=== PATIENT | female | born 1975 | race Caucasian/White ===

== ENCOUNTER 2025-01-21 09:17 | Outpatient (CLI) | payer OTHER, SELFPAY ==
--- OUTSIDE RECORDS SUMMARY | 2025-01-21 09:29 | XMS_ITS | Clinical Summary ---
Author Organization [facility] [address] [facility] Address [address] [place] [address] Care Team Providers Care Brick Siding Applicator Name Role Phone Nestor Fletcher MD Primary Care Provider [phone] Moshe Hess MD Unavailable [phone] Allergies Active Allergy Reactions Criticality Noted Date Comments Amoxicillin Unknown 09/23/2020 Yeast infection Oxycodone-Acetaminophen Itching Low 09/23/2020 Ketorolac Itching Low 09/23/2020 Medications levothyroxine sodium (LEVOTHYROXINE, BULK, MISC) 175 mcg Active montelukast (SINGULAIR) 10 mg tablet Take 10 mg by mouth nightly Active traZODone (DESYREL) 50 mg tablet Take 1 tablet (50 mg total) by mouth nightly Active pantoprazole sodium (PANTOPRAZOLE ORAL) Take by mouth Active losartan-hydroC HLOROthiazide (HYZAAR) 50-12.5 mg per tablet Take 1 tablet by mouth daily Active amLODIPine (KATERZIA) 1 mg/mL oral suspension 7.5 mL (7.5 mg total) daily Active TiZANidine (ZANAFLEX) 4 mg capsule Take 1 capsule (4 mg total) by mouth 3 (three) times a day Active LORazepam (ATIVAN) 1 mg tablet Take 1 tablet (1 mg total) by mouth every 6 (six) hours as needed for anxiety Active HYDROcodone-cash taminophen (NORCO) 10-325 mg per tabletIndicatio ns:Pain Take 1 tablet by mouth every 6 (six) hours as needed for pain Active meloxicam (MOBIC) 15 mg tablet Take 1 tablet (15 mg total) by mouth daily 30 tablet 1 1 Active albuterol 2.5 mg /3 mL (0.083 %) nebulizer solution Inhale 3 mL (2.5 mg total) every 4 (four) hours as needed 2 Active FLUoxetine (PROzac) 40 mg capsule Take 1 capsule (40 mg total) by mouth daily 4 Active gabapentin (NEURONTIN) 100 mg capsule Take 1 capsule (100 mg total) by mouth 3 (three) times a day 5 Active Breo Ellipta 200-25 mcg/dose diskus inhaler Inhale 1 puff daily 5 Active hydrALAZINE (APRESOLINE) 25 mg tablet Take 1 tablet (25 mg total) by mouth 3 (three) times a day as needed 3 Active naloxone (Narcan) 4 mg/actuation spray,non-aeros ol Administer 0.1 mL into affected nostril(s) as needed 2 Active sucralfate (CARAFATE) 1 gram tablet Take 1 tablet (1 g total) by mouth 4 (four) times a day as needed 4 Active levothyroxine (SYNTHROID) 200 mcg tablet Take 1 tablet (200 mcg total) by mouth every morning 4 Active tiZANidine (ZANAFLEX) 4 mg tablet Take 1 tablet (4 mg total) by mouth every 8 (eight) hours as needed 5 Active Active Problems Problem Noted Date Diagnosed Date Bloating 03/24/2021 Assessment & Plan (03/24/2021 12:53 PM CDT): Recommended further discussion with her GI. Positive RACHAEL (antinuclear antibody) 03/11/2021 Overview (03/24/2021): 03/11/21: UA neg, CK 81, CRP 1.49 mg/dL, ESR 14, Anti-Juan Miguel neg, Actin neg AVISE 03/11/21: all negative 45 yoF presents with a recent pos rachael 1:80 in an reticular/AMA pattern. She notes generalized joint complaints along with significant fatigue symptoms. She notes several other complaints, which I suspect are likely unrelated to a rheumatologic cause, including worsening asthma, GERD, insomnia, nausea, infrequent diffuse abdominal pain. Has occasional sharp chest pains, which could possibly represent pleurisy, without other systemic complaints. She does note a previous diagnosis of ankylosing spondylitis per neurosurgery, although appears more likely to be degenerative disc disease given prior fusion surgeries in the lumbar and cervical spine. Will try and track down prior MRI of the lumbar and/or cervical spine. Tenderness noted across several joints without obvious synovitis. At this time, do not see any obvious evidence to suggest an underlying connective tissue disease and/or inflammatory arthritis. Will evaluate further with appropriate serologies. Will rx mobic 15 mg daily to see if this can offer benefit for joint complaints. Discussed side effects of the medication, including but not limited to GI upset, kidney, and ulcers. She is to notify with any worsened gerd symptoms. Assessment & Plan (03/24/2021 12:53 PM CDT): 45 yoF presented with a pos rachael 1:80 in an reticular/AMA pattern. She noted generalized joint complaints along with significant fatigue symptoms. She also noted several other complaints, which I suspect are likely unrelated to a rheumatologic cause, including worsening asthma, GERD, insomnia, nausea, infrequent diffuse abdominal pain. She noted a previous diagnosis of ankylosing spondylitis per neurosurgery, although appears more likely to be degenerative disc disease given prior fusion surgeries in the lumbar and cervical spine. We have tried to obtain records of the MRI of the lumbar and/or cervical spine, although have yet to receive. She has begun mobic PRN since last visit, which has helped her joint symptoms. Denies significant joint complaints at today's visit. No obvious synovitis. Repeat labs, as above, revealed a negative Avise along with mildly elevated CRP at 1.49 mg/dL and ESR at 14. No other significant serologies were noted. At this time, do not see any obvious evidence to suggest an underlying inflammatory arthritis and/or CTD. He may continue meloxicam at 15 mg daily p.r.n., which has been beneficial and she has not required this frequently. Will have her follow up as needed or if any new symptoms arise. Seen with Dr. Hess. Assessment & Plan (03/11/2021 11:47 PM CDT): 45 yoF presents with a recent pos rachael 1:80 in an reticular/AMA pattern. She notes generalized joint complaints along with significant fatigue symptoms. She notes several other complaints, which I suspect are likely unrelated to a rheumatologic cause, including worsening asthma, GERD, insomnia, nausea, infrequent diffuse abdominal pain. Has occasional sharp chest pains, which could possibly represent pleurisy, without other systemic complaints. She does note a previous diagnosis of ankylosing spondylitis per neurosurgery, although appears more likely to be degenerative disc disease given prior fusion surgeries in the lumbar and cervical spine. Will try and track down prior MRI of the lumbar and/or cervical spine. Tenderness noted across several joints without obvious synovitis. At this time, do not see any obvious evidence to suggest an underlying connective tissue disease and/or inflammatory arthritis. Will evaluate further with appropriate serologies. Will rx mobic 15 mg daily to see if this can offer benefit for joint complaints. Discussed side effects of the medication, including but not limited to GI upset, kidney, and ulcers. She is to notify with any worsened gerd symptoms. Fu 2 weeks. Sooner if needed. Seen with Dr. Hess. Surgical History Surgery Date Site/Laterality Comments THYROIDECTOMY SPINE SURGERY 2 cervical spine, 1 lumbar spine TUBAL LIGATION ESOPHAGOGASTRODUODENOSCOPY COLONOSCOPY BREAST LUMPECTOMY Medical History Medical History Date Comments Degenerative disc disease at L5-S1 level Hypertension Hypothyroidism Cancer (HCC) Thyroid Cancer 2 009 Asthma Dysphagia Hiatal hernia Social History Tobacco Use Types Packs/Day Years Used Date Smoking Tobacco: Former Cigarettes Smokeless Tobacco: Never Tobacco Cessation:Counseling Given: Not Answered AUDIT-C Answer Date Recorded Q1: How often do you have a drink containing alcohol? Never 09/30/2024 Q2: How many drinks containi ng alcohol do you have on a typical day when you are drinking? Patient does not drink Q3: How often do you have si x or more drinks on one occasion? Never 09/30/2024 Personal Safety Answer Date Recorded Have you ever been in or are you currently in a harmful physical or emotional relationship or is someone making you feel afraid or unsafe? Denies 09/30/2024 Comments No Sex and Gender Information Value Date Recorded Sex Assigned at Not on file Legal Sex Female 2:16 AM WOOD EXPERIMENTAL MECHANIC Gender Identity Not on file Sexual Orientation Not on file Obstetrics History Last Filed Vital Signs Vital Sign Reading Time Taken Comments Blood Pressure 161/77 09/30/2024 1:43 PM WOOD EXPERIMENTAL MECHANIC Pulse 78 09/30/2024 1:43 PM WOOD EXPERIMENTAL MECHANIC Temperature 37.4 C (99.3 F) 09/30/2024 12:43 PM WOOD EXPERIMENTAL MECHANIC Respiratory Rate 11 09/30/2024 1:43 PM WOOD EXPERIMENTAL MECHANIC Oxygen Saturation 96% 09/30/2024 1:43 PM WOOD EXPERIMENTAL MECHANIC Inhaled Oxygen Concentration - - Weight 112 kg (247 lb) 09/30/2024 10:26 AM WOOD EXPERIMENTAL MECHANIC Height 165.1 cm (5' 5 ) 09/30/2024 10:26 AM WOOD EXPERIMENTAL MECHANIC Body Mass Index 41.1 09/30/2024 10:26 AM WOOD EXPERIMENTAL MECHANIC Plan of Treatment Health Maintenance Due Date Last Done Comments Breast Cancer Screening-Mammogram 1976 Cervical Cancer Screening 1976 Colon Cancer Screening-Colonoscopy 1976 Depression Screening 1976 Hepatitis C Screening 1976 Hepatitis B Screening 1994 Regular Well Visit/Exam 18-64 1994 Pneumococcal vaccine <65 (1 of 2 - PCV) 12/22/1995 Covid-19 Vaccine (3 - 2023-2 5 season) 2024 12/24/2020, 11/26/2020 Influenza Vaccine (Season Ended) 2025 07/14/2023, 07/14/2022, 07/05/2021, Additional history exists DTaP/Tdap/Td Vaccine (2 - Td or Tdap) 02/21/2027 02/21/2017 Insurance MEDICARE Member Subscriber Plan / Payer ( fective 2024-Present) Name:Renu Marquez Relation to Subscriber:Self Name:Renu Marquez Payer ID:[id number] (NAIC) Group ID:Not on file Type:MEDICAID RISK OTHER Address: [address] [place] Member Subscriber Plan / Payer ( fective 2024-Present) Name:Renu Marquez Relation to Subscriber:Self Name:Renu Marquez Payer ID:[id number] (NAIC) Group ID:Not on file Type:MEDICAID RISK OTHER Address: [address] Advance Directives For more information, please contact: [phone] * Full Code (Latest Code Status on File) Date Activated Date Inactivated Comments 09/30/2024 10:26 AM 09/30/2024 5:58 PM Care Teams Brick Siding Applicator Relationship Specialty Start Date End Date Nestor Fletcher MD PCP - General Family Practice 02/09/21 Moshe Hess MD [address] [place] [address] Consulting Physician Rheumatology 02/09/21
--- OUTSIDE RECORDS SUMMARY | 2025-01-21 09:29 | XMS_ITS | Referral Summary ---
Author Organization [facility] [address] [facility] Address [address] [place] [address] Care Team Providers Care Manager Of Customer Billing Name Role Phone Nestor Fletcher MD Primary Care Provider [phone] Moshe Hess MD Unavailable [phone] Allergies Active Allergy Reactions Criticality Noted [...] Sooner if needed. Seen with Dr. Hess. Social History Tobacco Use Types Packs/Day Years [...] on file Legal Sex Female 2:16 AM CERTIFIED MEDICAL TECHNICIAN ASSISTANT Gender Identity Not on file Sexual Orientation Not on file Last Filed Vital Signs Vital Sign Reading Time Taken Comments Blood Pressure 161/77 09/30/2024 1:43 PM CERTIFIED MEDICAL TECHNICIAN ASSISTANT Pulse 78 09/30/2024 1:43 PM CERTIFIED MEDICAL TECHNICIAN ASSISTANT Temperature 37.4 C (99.3 F) 09/30/2024 12:43 PM CERTIFIED MEDICAL TECHNICIAN ASSISTANT Respiratory Rate 11 09/30/2024 1:43 PM CERTIFIED MEDICAL TECHNICIAN ASSISTANT Oxygen Saturation 96% 09/30/2024 1:43 PM CERTIFIED MEDICAL TECHNICIAN ASSISTANT Inhaled Oxygen Concentration - - Weight 112 kg (247 lb) 09/30/2024 10:26 AM CERTIFIED MEDICAL TECHNICIAN ASSISTANT Height 165.1 cm (5' 5 ) 09/30/2024 10:26 AM CERTIFIED MEDICAL TECHNICIAN ASSISTANT Body Mass Index 41.1 09/30/2024 10:26 AM CERTIFIED MEDICAL TECHNICIAN ASSISTANT Plan of Treatment Not on file Insurance [place] [address] [place] [address] [facility] Advance Directives For more information, please contact: [phone] * Full Code (Latest Code Status on File) Date Activated Date Inactivated Comments 09/30/2024 10:26 AM 09/30/2024 5:58 PM Care Teams Manager Of Customer Billing Relationship Specialty Start Date End Date Nestor Fletcher MD PCP - General Family Practice 02/09/21 Moshe Hess MD [address] [place] [id number] Consulting Physician Rheumatology 02/09/21
--- NOTE | 2025-01-21 11:15 | NEURO_ITS ---
Impression: # Complains of hand pain. ? # Left ulnar neuropathy across the elbow. ? # No Carpal Tunnel Syndrome. ? # Mildly abnormal Needle/EMG exam. Nerve Conduction Studies Anti Sensory Summary Table ?Stim Site NR Peak (ms) P-T Amp (?V) Site1 Site2 Delta-P (ms) Dist (cm) Christopher (m/s) Left Median Anti Sensory (2-3nd Digit) Wrist ? 2.6 55.2 Wrist 2-3nd Digit 2.6 14.0 54 Wrist ? 2.6 39.6 Wrist 2-3nd Digit 2.6 14.0 54 Right Median Anti Sensory (2-3nd Digit) Wrist ? 3.2 53.6 Wrist 2-3nd Digit 3.2 14.0 44 Wrist ? 3.1 48.6 Wrist 2-3nd Digit 3.2 14.0 44 Left Radial Anti Sensory (Base 1st Digit) Wrist ? 1.9 24.6 Wrist Base 1st Digit 1.9 0.0 Right Radial Anti Sensory (Base 1st Digit) Wrist ? 2.6 12.6 Wrist Base 1st Digit 2.6 0.0 Left Ulnar Anti Sensory (5th Digit)??? NO RESPONSE Wrist NR Wrist 5th Digit 14.0 Right Ulnar Anti Sensory (5th Digit) Wrist ? 2.7 29.5 Wrist 5th Digit 2.7 14.0 52 Motor Summary Table ?Stim Site NR Onset (ms) O-P Amp (mV) Site1 Site2 Delta-0 (ms) Dist (cm) Christopher (m/s) Left Median Motor (Abd Poll Brev) Wrist ? 3.0 3.9 Elbow Wrist 4.7 28.0 60 Elbow ? 7.7 5.5 Right Median Motor (Abd Poll Brev) Wrist ? 3.0 4.6 Elbow Wrist 5.0 30.0 60 Elbow ? 8.0 4.1 Left Ulnar Motor (Abd Dig Minimi) Wrist ? 2.4 6.0 A Elbow Wrist 6.3 30.0 48 A Elbow ? 8.7 1.0 B Elbow Wrist 3.8 24.0 63 B Elbow ? 6.2 1.0 Right Ulnar Motor (Abd Dig Minimi) Wrist ? 3.2 2.5 A Elbow Wrist 5.1 30.0 59 A Elbow ? 8.3 2.0 F Wave Studies ?NR F-Lat (ms) L-R F-Lat (ms) Left Median (Mrkrs) (Abd Poll Brev) ? 27.11 0.38 Right Median (Mrkrs) (Abd Poll Brev) ? 26.73 0.38 Left Ulnar (Mrkrs) (Abd Dig Min) ? 26.22 0.43 Right Ulnar (Mrkrs) (Abd Dig Min) ? 25.79 0.43 EMG ?Side Muscle Nerve Root Ins Act Fibs Amp Dur Recrt Comment Right 1stDorInt Ulnar C8-T1 Nml Nml Nml Nml Nml Right Ext Indicis Radial (Post Int) C7-8 Nml Nml Nml Nml Nml Right Ext Digitorum Radial (Post Int) C7-8 Nml Nml Nml Nml Nml Right BrachioRad Radial C5-6 Nml Nml Nml Nml Nml Right PronatorTeres Median C6-7 Nml Nml Nml Nml Nml Right Abd Poll Brev Median C8-T1 Nml Nml Nml Nml Nml Right ABD Dig Min Ulnar C8-T1 Nml Nml Nml Nml Nml Right FlexPolLong Median (Ant Int) C7-8 Nml Nml Nml Nml Nml Right Abd Poll Long Radial (Post Int) C7-8 Nml Nml Nml Nml Nml Left 1stDorInt Ulnar C8-T1 Nml Nml Nml >12ms +1 Left Ext Indicis Radial (Post Int) C7-8 Nml Nml Nml Nml Nml Left Ext Digitorum Radial (Post Int) C7-8 Nml Nml Nml Nml Nml Left BrachioRad Radial C5-6 Nml Nml Nml Nml Nml Left PronatorTeres Median C6-7 Nml Nml Nml Nml Nml Left Abd Poll Brev Median C8-T1 Nml Nml Nml Nml Nml Left ABD Dig Min Ulnar C8-T1 Nml Nml Nml >12ms +1 Left FlexPolLong Median (Ant Int) C7-8 Nml Nml Nml Nml Nml Left Abd Poll Long Radial (Post Int) C7-8 Nml Nml Nml Nml Nml Right Biceps Musculocut C5-6 Nml Nml Nml Nml Nml Right Triceps Radial C6-7-8 Nml Nml Nml Nml Nml Right Deltoid Axillary C5-6 Nml Nml Nml Nml Nml Left Biceps Musculocut C5-6 Nml Nml Nml Nml Nml Left Triceps Radial C6-7-8 Nml Nml Nml Nml Nml Left Deltoid Axillary C5-6 Nml Nml Nml Nml Nml MTDD
== END 2025-01-21 09:18 | disposition home or self-care (01) ==
PROVIDERS: PCP Family Medicine; Visit Provider Nurse Practitioner Adult Health
DX: G56.22 Lesion of ulnar nerve, left upper limb (principal); M54.2 Cervicalgia; Z98.890 Other specified postprocedural states
CPT/HCPCS: 95886; 95911

== ENCOUNTER 2025-03-30 09:59 | Outpatient (CLI) | payer OTHER, SELFPAY ==
--- NOTE | ~2025-03-30 | MR_ITS ---
MRI of the cervical spine Clinical History: Pain Technique: Axial T2-weighted and gradient images, and sagittal T1-weighted, T2-weighted, and STIR ivory ges were acquired. Findings: No acute fracture or subluxation identified. There is anterior fusion from C3 through C7 wi th associated hardware and susceptibility artifact. No significant bone marrow signal abnormality see n, but there is extensive artifact. At C2-C3, there is mild right facet arthropathy. No definite neural foraminal narrowing on either alexander e. No canal stenosis or cord compression. At C3-C4, there is no spinal canal stenosis or cord compression. Neural foramina appear preserved. Po ssible minimal disc osteophyte complex. At C4-C5, there is disc osteophyte complex with bilateral neural foraminal narrowing. No canal stenos is or cord compression. At C5-C6, there is probable minimal disc osteophyte complex. No definite canal stenosis, cord john swapna, or neural foraminal narrowing. At C6-C7, there is probable mild disc osteophyte complex. Possible mild bilateral neural foraminal na rrowing. No canal stenosis or cord compression. No abnormal signal seen in the spinal cord. Paravertebral soft tissues are unremarkable. Impression: Mild degenerative spondylosis with anterior fusion from C3 through C7. Reviewed, dictated and finalized at location . Impression: Mild degenerative spondylosis with anterior fusion from C3 through C7.
--- OUTSIDE RECORDS SUMMARY | 2025-03-30 10:03 | XMS_ITS | Encounter Summary ---
Author Organization [facility] Address [address] [place] [address] Care Team Providers Care Washroom Cleaner Name Role Phone Nestor Fletcher MD Primary Care Provider [phone] Encounter Details Date Type Department Care Team (Late st Contact Info) Description 12/28/2021 [employer] Message Enc [facility] Family & Internal Medicine [address] [address] Nestor Fletcher MD [address] [place] [address] Pain meds Social History Tobacco Use Types Packs/Day Years Used Date Smoking Tobacco: Former Cigarettes 1 991 - 05/15/2021 Smokeless Tobacco: Never Comments:pt has quit smoking Alcohol Use Standard Drinks/Week Comments Not Currently 0 (1 standard drink = 0.6 oz pur e alcohol) 2-3 times a year AUDIT-C Answer Date Recorded Frequency of Alcohol Consumption Monthly or less 10/30/2019 Average Number of Drinks 1 or 2 020 Frequency of Binge Drinking Never 10/06 PHQ-2 Answer Date Recorded PHQ-2 Score - If the patient scores above 3, please move on to questions 3-9 0 12/17/2021 Comments No Sex and Gender Information Value Date Recorded Sex Assigned at Female 10/30/2019 8:35 AM TIRE REGROOVING MACHINE OPERATOR Legal Sex Female 10:55 PM CDT Gender Identity Female 10/30/2019 8:35 AM TIRE REGROOVING MACHINE OPERATOR Sexual Orientation Straight 10/30/2019 8: 35 AM TIRE REGROOVING MACHINE OPERATOR COVID-19 Exposure Response Date Recorded In the last 10 days, have yo u been in contact with someone who was confirmed or suspected to have Coronavirus/COVID-19? No / Unsure 12/26/2021 9:05 PM CDT documented as of this encounter Functional Status * RETIRED Are you deaf or do you have serious difficulty hearing Answer Date of Assessment Author Status No 03/31/2020 2:12 AM CDT Activ e * RETIRED Are you blind or do you have serious difficulty seeing, even when wearing glasses? Answer Date of Assessment Author Status No 03/31/2020 2:12 AM CDT Activ e * Do you have serious difficulty walking or climbing stairs? Answer Date of Assessment Author Status No 03/31/2020 2:12 AM CDT Kelly Hayes RN Active * Do you have difficulty dressing or bathing? Answer Date of Assessment Author Status No 03/31/2020 2:12 AM CDT Kelly Hayes RN Active * Because of a physical, mental, or emotional condition, do you have difficulty doing errands alone such as visiting a doctor's office or shopping? Answer Date of Assessment Author Status No 03/31/2020 2:12 AM CDT Kelly Hayes RN Active documented as of this encounter Mental Status * Because of a physical, mental, or emotional condition, do you have serious difficulty concentrating, remembering, or making decisions? Answer Entry Date Author Status No 03/31/2020 2:12 AM CDT Kelly Hayes RN Active documented in this encounter Plan of Treatment Upcoming Encounters Date Type Department Care Team (Late st Contact Info) Description 04/03/2025 8:40 AM CDT Office Visit [facility] Family & Internal Medicine - [place] [id number] [place] [phone] Nestor Fletcher MD [address] [place] [address] 08/26/2025 9:00 AM TIRE REGROOVING MACHINE OPERATOR Office Visit [facility] Multispecialty Care - [address], [address] [place] [address] Francisco Levi, [address] [place] [address] documented as of this encounter Visit Diagnoses Not on filedocumented in this encounter Additional Health Concerns Infection Onset Date Last Indicated Resolved Time COVID-19 Rule Out 05/20/2023 05/20/2023 05/20/2023 6:44 PM CDT COVID-19 Rule Out 09/11/2023 09/11/2023 09/11/2023 10:29 AM TIRE REGROOVING MACHINE OPERATOR COVID-19 Rule Out 03/18/2024 03/18/2024 03/18/2024 8:30 PM CDT COVID-19 Rule Out 05/27/2024 05/27/2024 05/27/2024 7:16 PM CDT Assessment Noted Time PHQ-9 Depression Total Score: 0 08/24/20 21 2:19 PM TIRE REGROOVING MACHINE OPERATOR documented as of this encounter Care Teams Washroom Cleaner Relationship Specialty [place] [address] [place] [address] PCP - General FAMILY PRACTICE 05/15/20 documented as of this encounter
--- OUTSIDE RECORDS SUMMARY | 2025-03-30 10:03 | XMS_ITS | Encounter Summary ---
Author Organization [facility] Address [address] [place] [address] Care Team Providers Care Winery Worker Name Role Phone Nestor Fletcher MD Primary Care Provider [phone] Encounter Details Date Type Department Care Team (Late st Contact Info) Description 12/24/2021 [employer] Message Enc [facility] Family & Internal Medicine [address] [address] Nestor Fletcher MD [address] [place] [address] Question regarding TSH W/REFLEX Social History Tobacco Use Types Packs/Day Years [...] Sex Assigned at Female 10/30/2019 8:35 AM SKATE SHOP ATTENDANT Legal Sex Female 10:55 PM CDT Gender Identity Female 10/30/2019 8:35 AM SKATE SHOP ATTENDANT Sexual Orientation Straight 10/30/2019 8: 35 AM SKATE SHOP ATTENDANT COVID-19 Exposure Response Date Recorded In the [...] Description 04/03/2025 8:40 AM CDT Office Visit [facility] Family & Internal Medicine - [place] [address] [place] [address] Nestor Fletcher [place] [id number] [place] [address] 08/26/2025 9:00 AM SKATE SHOP ATTENDANT Office Visit [facility] Multispecialty Care - [address] [place] [address] Francisco Levi, [address] [place] [address] documented as of this encounter Visit Diagnoses Not on filedocumented in this encounter Additional Health Concerns Infection Onset Date Last Indicated Resolved Time COVID-19 Rule Out 05/20/2023 05/20/2023 05/20/2023 6:44 PM CDT COVID-19 Rule Out 09/11/2023 09/11/2023 09/11/2023 10:29 AM SKATE SHOP ATTENDANT COVID-19 Rule Out 03/18/2024 03/18/2024 03/18/2024 8:30 PM CDT COVID-19 Rule Out 05/27/2024 05/27/2024 05/27/2024 7:16 PM CDT Assessment Noted Time PHQ-9 Depression Total Score: 0 08/24/20 21 2:19 PM SKATE SHOP ATTENDANT documented as of this encounter Care Teams Winery Worker Relationship Specialty [place] [address] [place] [address] PCP - General FAMILY PRACTICE 05/15/20 documented as of this encounter
--- OUTSIDE RECORDS SUMMARY | 2025-03-30 10:03 | XMS_ITS | Encounter Summary ---
Author Organization [facility] Address [address] [place] [address] Care Team Providers Care Wire Cutter Name Role Phone Nestor Fletcher MD Primary Care Provider [phone] Encounter Details Date Type Department Care Team (Late st Contact Info) Description 12/30/[address] [email or web address] [facility] Multispecialty Care - [facility] [address], [address] [place] [id number] Pura Velazquez APRN [address] [facility] [address] [place] [address] Lumbar Social History Tobacco Use Types Packs/Day Years [...] Sex Assigned at Female 10/30/2019 8:35 AM BAGGAGEMASTER Legal Sex Female 10:55 PM CDT Gender Identity Female 10/30/2019 8:35 AM BAGGAGEMASTER Sexual Orientation Straight 10/30/2019 8: 35 AM BAGGAGEMASTER COVID-19 Exposure Response Date Recorded In the last 10 days, have marielos valladares been in contact with someone who was [...] Author Status No 03/31/2020 2:12 AM CDT Acti ve * Do you have serious difficulty walking [...] Description 04/03/2025 8:40 AM CDT Office Visit [facility] Family & Internal Medicine [facility] [id number] [place] [phone] [place] Fletcher [place] [id number] [place] [address] 08/26/2025 9:00 AM BAGGAGEMASTER Office Visit [facility] Multispecialty Care - [facility] [address] [place] [address] Francisco Levi DO [address] [place] [address] documented as of this encounter Visit Diagnoses Not on filedocumented in this encounter Additional Health Concerns Infection Onset Date Last Indicated Resolved Time COVID-19 Rule Out 05/20/2023 05/20/2023 05/20/2023 6:44 PM CDT COVID-19 Rule Out 09/11/2023 09/11/2023 09/11/2023 10:29 AM BAGGAGEMASTER COVID-19 Rule Out 03/18/2024 03/18/2024 03/18/2024 8:30 PM CDT COVID-19 Rule Out 05/27/2024 05/27/2024 05/27/2024 7:16 PM CDT Assessment Noted Time PHQ-9 Depression Total Score: 0 08/24/20 21 2:19 PM BAGGAGEMASTER documented as of this encounter Care Teams Wire Cutter Relationship Specialty [place] [address] [place] [address] PCP - General FAMILY PRACTICE 05/15/20 documented as of this encounter
--- OUTSIDE RECORDS SUMMARY | 2025-03-30 10:03 | XMS_ITS | Encounter Summary ---
Author Organization [facility] Address [address] [place] [address] Care Team Providers Care Business Support Name Role Phone Nestor Fletcher MD Primary Care Provider [phone] Encounter Details Date Type Department Care Team (Late st Contact Info) Description 11/08/2024 [employer] Message Enc [facility] Family & Internal Medicine [address] [address] Nestor Fletcher MD [address] [place] [address] Mammogram Social History Tobacco Use Types Packs/Day Years Used Date Smoking Tobacco: Former Cigarettes 1 30.7 1 991 - 05/15/2021 Passive Smoke Exposure: Past Smokeless Tobacco: Never Comments:pt has quit smoking Alcohol Use Standard Drinks/Week Comments Not Currently 0 (1 standard drink = 0.6 oz pur e alcohol) 2-3 times a year AUDIT-C Answer Date Recorded Frequency of Alcohol Consumption Monthly or less 10/30/2019 Average Number of Drinks 1 or 2 020 Frequency of Binge Drinking Never 10/06 PHQ-2 Answer Date Recorded Patient Health Questionnaire-2 Score 6 09/25/2024 Comments No Sex and Gender Information Value Date Recorded Sex Assigned at Female 10/30/2019 8:35 AM IT SECURITY PROJECT MANAGER Legal Sex Female 10:55 PM CDT Gender Identity Female 10/30/2019 8:35 AM IT SECURITY PROJECT MANAGER Sexual Orientation Straight 10/30/2019 8: 35 AM IT SECURITY PROJECT MANAGER documented as of this encounter Functional Status * RETIRED Are you deaf or do you have serious difficulty hearing Answer Date of Assessment Author Status No 06/06/2022 12:00 PM CDT Acti ve * RETIRED Are you blind or do you have serious difficulty seeing, even when wearing glasses? Answer Date of Assessment Author Status No 06/06/2022 12:00 PM CDT Acti ve * Do you have serious difficulty walking or climbing stairs? Answer Date of Assessment Author Status No 06/06/2022 12:00 PM CDT Georgia Lovell RN Active * Do you have difficulty dressing or bathing? Answer Date of Assessment Author Status No 06/06/2022 12:00 PM CDT Georgia Lovell RN Active * Because of a physical, mental, or emotional condition, do you have difficulty doing errands alone such as visiting a doctor's office or shopping? Answer Date of Assessment Author Status No 06/06/2022 12:00 PM CDT Georgia Lovell RN Active documented as of this encounter Mental Status * Because of a physical, mental, or emotional condition, do you have serious difficulty concentrating, remembering, or making decisions? Answer Entry Date Author Status No 06/06/2022 12:00 PM CDT Georgia Lovell RN Active documented in this encounter Plan of Treatment Upcoming Encounters Date Type Department Care Team (Late st Contact Info) Description 04/03/2025 8:40 AM CDT Office Visit [facility] Family & Internal Medicine - [address] [address] Nestor Fletcher MD [address] [place] [address] 08/26/2025 9:00 AM IT SECURITY PROJECT MANAGER Office Visit [facility] Multispecialty Care - [address] [place] [address] Francisco Levi DO [address] [facility] [address] [place] [address] documented as of this encounter Goals Goal Patient Goal Type Associated Problems Recent Progress Patient-Stated? Author Health - patient able to perform ADLs independently Lifestyle No Koerdomo i er, Kareem Camacho RN documented as of this encounter Visit Diagnoses Not on filedocumented in this encounter Additional Health Concerns Assessment Noted Time PHQ-9 Depression Total Score: 13 025 11:16 AM IT SECURITY PROJECT MANAGER documented as of this encounter Care Teams Business Support Relationship Specialty [place] [address] [place] [address] PCP - General FAMILY PRACTICE 05/15/20 documented as of this encounter
--- OUTSIDE RECORDS SUMMARY | 2025-03-30 10:03 | XMS_ITS | Encounter Summary ---
Author Organization [facility] Address [address] [place] [address] Care Team Providers Care Healthcare Account Manager Name Role Phone Nestor Fletcher MD Primary Care Provider [phone] Encounter Details Date Type Department Care Team (Late st Contact Info) Description 01/11/2022 [employer] Message Enc [facility] Orthopedic [place] [address] [place] [address] [place] [address] [place] [address] PT Social History Tobacco Use Types Packs/Day Years [...] Sex Assigned at Female 10/30/2019 8:35 AM SAND DIGGER Legal Sex Female 10:55 PM CDT Gender Identity Female 10/30/2019 8:35 AM SAND DIGGER Sexual Orientation Straight 10/30/2019 8: 35 AM SAND DIGGER COVID-19 Exposure Response Date Recorded In the last 10 days, have yo u been in contact with someone who was confirmed or suspected to have Coronavirus/COVID-19? No / Unsure 01/09/2022 8:17 PM CDT documented as of this encounter [...] Hayes RN Active documented in this encounter Progress Notes * Rene Abdul DO - 01/12/2022 7:35 AM CDT No that is not normal. She probably needs to go back to surgeon that worked on her neck or get a fresh referral to neurosurgery documented in this encounter Plan of Treatment Upcoming Encounters Date Type Department Care Team (Late st Contact Info) Description 04/03/2025 8:40 AM CDT Office Visit [facility] Family & Internal Medicine [address] [address] [place] [address] [place] [address] 08/26/2025 9:00 AM SAND DIGGER Office Visit [facility] Multispecialty Care - [facility] [address] [place] [address] Francisco Levi DO [address] [place] [address] documented as of this encounter Visit Diagnoses Not on filedocumented in this encounter Additional Health Concerns Infection Onset Date Last Indicated Resolved Time COVID-19 Rule Out 05/20/2023 05/20/2023 05/20/2023 6:44 PM CDT COVID-19 Rule Out 09/11/2023 09/11/2023 09/11/2023 10:29 AM SAND DIGGER COVID-19 Rule Out 03/18/2024 03/18/2024 03/18/2024 8:30 PM CDT COVID-19 Rule Out 05/27/2024 05/27/2024 05/27/2024 7:16 PM CDT Assessment Noted Time PHQ-9 Depression Total Score: 0 08/24/20 21 2:19 PM SAND DIGGER documented as of this encounter Care Teams Healthcare Account Manager Relationship Specialty [place] [address] [place] [address] PCP - General FAMILY PRACTICE 05/15/20 documented as of this encounter
--- OUTSIDE RECORDS SUMMARY | 2025-03-30 10:03 | XMS_ITS | Encounter Summary ---
Author Organization [facility] Address [address] [place] [address] Care Team Providers Care Honing Machine Operator Name Role Phone Nestor Fletcher MD Primary Care Provider [phone] Encounter Details Date Type Department Care Team (Late st Contact Info) Description 01/13/2022 [employer] Message Enc [facility] Multispecialty Care - [facility] [address] [facility], [address] [place] [phone] Pura Velazuqez APRN [address] [facility] [address] [place] [address] PT Social History Tobacco Use Types Packs/Day [...] Sex Assigned at Female 10/30/2019 8:35 AM HOT PLATE PLYWOOD PRESS OPERATOR Legal Sex Female 10:55 PM CDT Gender Identity Female 10/30/2019 8:35 AM HOT PLATE PLYWOOD PRESS OPERATOR Sexual Orientation Straight 10/30/2019 8: 35 AM HOT PLATE PLYWOOD PRESS OPERATOR COVID-19 Exposure Response Date Recorded In [...] documented in this encounter Progress Notes * Varsha Almonte MA - 01/20/2022 12:58 PM CDT I called Renu and scheduled her to come in tomorrow at 10:00 am. Understanding was verbalized. * Varsha Almonte MA - 01/14/2022 8:03 AM CDT Sending to Pura documented in this encounter Plan of Treatment Upcoming Encounters Date Type Department Care Team (Late st Contact Info) Description 04/03/2025 8:40 AM CDT Office Visit [facility] Medical [facility] Family & Internal Medicine [facility] [address] [place] [address] [place] [address] [place] [address] 08/26/2025 9:00 AM HOT PLATE PLYWOOD PRESS OPERATOR Office Visit [facility] Multispecialty Care - [facility] [address] [place] [address] Francisco Levi DO [address] [facility] [address] [place] [address] documented as of this encounter Visit Diagnoses Not on filedocumented in this encounter Additional Health Concerns Infection Onset Date Last Indicated Resolved Time COVID-19 Rule Out 05/20/2023 05/20/2023 05/20/2023 6:44 PM CDT COVID-19 Rule Out 09/11/2023 09/11/2023 09/11/2023 10:29 AM HOT PLATE PLYWOOD PRESS OPERATOR COVID-19 Rule Out 03/18/2024 03/18/2024 03/18/2024 8:30 PM CDT COVID-19 Rule Out 05/27/2024 05/27/2024 05/27/2024 7:16 PM CDT Assessment Noted Time PHQ-9 Depression Total Score: 0 08/24/20 21 2:19 PM HOT PLATE PLYWOOD PRESS OPERATOR documented as of this encounter Care Teams Honing Machine Operator Relationship Specialty [place] [address] [place] [address] PCP - General FAMILY PRACTICE 05/15/20 documented as of this encounter
--- OUTSIDE RECORDS SUMMARY | 2025-03-30 10:03 | XMS_ITS | Encounter Summary ---
Author Organization [facility] Address [address] [place] [address] Care Team Providers Care Manager Transplant Name Role Phone Nestor Fletcher MD Primary Care Provider [phone] Reason for Visit * Reason Onset Date Comments Referral 10/15/2024 Encounter Details Date Type Department Care Team (Latest Contact Info) Description 10/15/2024 [employer] Message Enc [facility] Family & Internal Medicine [facility] [address] [place] [address] Nestor Fletcher MD [address] [place] [address] Neurosurgery referral Social History Tobacco Use Types Packs/Day Years [...] Sex Assigned at Female 10/30/2019 8:35 AM PIGMENT PROCESSOR Legal Sex Female 10:55 PM CDT Gender Identity Female 10/30/2019 8:35 AM PIGMENT PROCESSOR Sexual Orientation Straight 10/30/2019 8: 35 AM PIGMENT PROCESSOR documented as of this encounter Functional Status [...] Lovell RN Active documented in this encounter Progress Notes * Marina Archer RN - 10/23/2024 7:48 AM CST Ok, thank you! ENT PROCESSOR * Marina Archer RN - 10/22/2024 4:14 PM CST Can the pt not see [facility] at [facility] Are they out of network with pt's insurance? ENT PROCESSOR * Crystal Ying - 10/22/2024 3:44 PM CST [facility] called and stated the referral was sent to them. They only havePiedad Oliver STUDENT TRUCK DRIVER that goes to [facility] All of their other providers only go to [place]. They are not sure if this referral was ment for them or another group that sees pt at [facility] If pt is set on seeing someone at [facility] a different referral would have to be put in. If she is okay with [place] location they can proceed Please call them back with an update to know if they can schedule an apt with Renu [phone] est 5 Gemma ENT PROCESSOR * Marina Archer RN - 10/15/2024 8:12 AM CST Can someone please check into the neurosurgery referral for this pt that was placed in September? We put in for [facility] whichever provider comes to [facility] If they are out of network with's insurance, she needs referred to neurosurgery elsewhere. I seen somewhere in her chart about [facility]. She can not see a neurologist for her diagnosis. Has to be a neurosurgeon. Pleaseadvise. ENT PROCESSOR documented in this encounter Plan of Treatment Upcoming Encounters Date Type Department Care Team (Late st Contact Info) Description 04/03/2025 8:40 AM CDT Office Visit [facility] Family & Internal Medicine - [place] [address] [place] [address] Nestor Fletcher MD [address] [place] [address] 08/26/2025 9:00 AM PIGMENT PROCESSOR Office Visit [facility] Multispecialty Care - [facility] [address] [place] [address] Francisco Levi DO [address] [facility] [address] [place] [address] documented as of this encounter Goals Goal Patient Goal Type Associated Problems Recent Progress Patient-Stated? Author Health - patient able to perform ADLs independently Lifestyle No Vega hendrickson, Kareem Camacho RN documented as of this encounter Visit Diagnoses Not on filedocumented in this encounter Additional Health Concerns Assessment Noted Time PHQ-9 Depression Total Score: 13 025 11:16 AM PIGMENT PROCESSOR documented as of this encounter Care Teams Manager Transplant Relationship Specialty [place] [address] [place] [address] PCP - General FAMILY PRACTICE 05/15/20 documented as of this encounter
--- OUTSIDE RECORDS SUMMARY | 2025-03-30 10:03 | XMS_ITS | Encounter Summary ---
Author Organization [facility] Address [address] [place] [address] Care Team Providers Care Remedial Reading Teacher Name Role Phone Nestor Fletcher MD Primary Care Provider [phone] Encounter Details Date Type Department Care Team (Latest Contact Info) Description 01/30/2022 [employer] Message Enc [facility] Medical Group Family & Internal Medicine [facility] [address] [place] [address] [place] [address] [place] [address] Question regarding DRUG MONITORING, PANEL 5, WITH CONFIRMATION (U) Social History Tobacco Use Types Packs/Day Years [...] Sex Assigned at Female 10/30/2019 8:35 AM HARDWARE TECHNICIAN Legal Sex Female 10:55 PM CDT Gender Identity Female 10/30/2019 8:35 AM HARDWARE TECHNICIAN Sexual Orientation Straight 10/30/2019 8: 35 AM HARDWARE TECHNICIAN COVID-19 Exposure Response Date Recorded In the last 10 days, have marielos u been in contact with someone who was confirmed or suspected to have Coronavirus/COVID-19? No / Unsure 02/01/2022 4:05 PM CDT documented as of this encounter [...] Description 04/03/2025 8:40 AM CDT Office Visit [facility] Group Family & Internal Medicine [facility] [address] [place] [address] [place] Fletcher [place] [address] [place] [address] 08/26/2025 9:00 AM HARDWARE TECHNICIAN Office Visit [facility] Medical [facility] Multispecialty [address] [place] [address] Francisco Levi DO [address] [place] [address] documented as of this encounter Visit Diagnoses Not on filedocumented in this encounter Additional Health Concerns Infection Onset Date Last Indicated Resolved Time COVID-19 Rule Out 05/20/2023 05/20/2023 05/20/2023 6:44 PM CDT COVID-19 Rule Out 09/11/2023 09/11/2023 09/11/2023 10:29 AM HARDWARE TECHNICIAN COVID-19 Rule Out 03/18/2024 03/18/2024 03/18/2024 8:30 PM CDT COVID-19 Rule Out 05/27/2024 05/27/2024 05/27/2024 7:16 PM CDT Assessment Noted Time PHQ-9 Depression Total Score: 0 08/24/20 21 2:19 PM HARDWARE TECHNICIAN documented as of this encounter Care Teams Remedial Reading Teacher Relationship Specialty [place] [address] [place] [address] PCP - General FAMILY PRACTICE 05/15/20 documented as of this encounter
--- OUTSIDE RECORDS SUMMARY | 2025-03-30 10:03 | XMS_ITS | Encounter Summary ---
Author Organization [facility] Address [address] [place] [address] Care Team Providers Care Bushing Press Operator Name Role Phone Nestor Fletcher MD Primary Care Provider [phone] Encounter Details Date Type Department Care Team (Late st Contact Info) Description 10/08/2024 [employer] Message Enc [facility] Medical Group Family & Internal Medicine [address] [address] Nestor Fletcher MD [address] [place] [address] Sinus Social History Tobacco Use Types Packs/Day Years [...] Sex Assigned at Female 10/30/2019 8:35 AM VIDEO AND SOUND RECORDER Legal Sex Female 10:55 PM CDT Gender Identity Female 10/30/2019 8:35 AM VIDEO AND SOUND RECORDER Sexual Orientation Straight 10/30/2019 8: 35 AM VIDEO AND SOUND RECORDER documented as of this encounter Functional Status [...] Description 04/03/2025 8:40 AM CDT Office Visit [facility] Medical Group Family & Internal Medicine - [place] [address] [place] [address] Nestor Fletcher MD [address] [place] [address] 08/26/2025 9:00 AM VIDEO AND SOUND RECORDER Office Visit [facility] Multispecialty Care - [facility] [address] [facility] [place] [address] Francisco Levi DO [address] [facility] [address] [place] [address] documented as of this encounter Goals Goal Patient Goal Type Associated Problems Recent Progress Patient-Stated? Author Health - patient able to perform ADLs independently Lifestyle No Vega hendrickson, Kareem Camacho RN documented as of this encounter Visit Diagnoses Not on filedocumented in this encounter Additional Health Concerns Assessment Noted Time PHQ-9 Depression Total Score: 13 025 11:16 AM VIDEO AND SOUND RECORDER documented as of this encounter Care Teams Bushing Press Operator Relationship Specialty [place] [address] [place] [address] PCP - General FAMILY PRACTICE 05/15/20 documented as of this encounter
--- OUTSIDE RECORDS SUMMARY | 2025-03-30 10:03 | XMS_ITS | Encounter Summary ---
Author Organization [facility] Address [facility] [place] [address] Care Team Providers Care Baby Counselor Name Role Phone Tutu Hill MD Primary Care Provider + OnalaskaAry NP Primary Care Provider + None, Provider Primary Care Provider Nestor Ma MD Primary Care Provider [phone] Encounter Details Date Type Department Care Team (Late st Contact Info) Description 06/19/2006 Abstract [facility] Conversion , Generic ConversionMD Social History Tobacco Use Types Packs/Day Years Used Date Smoking Tobacco: Never Assessed Comments Unknown Sex and Gender Information Value Date Recorded Sex Assigned at Female 10/30/2019 8:35 AM PERCUSSION TUNER Legal Sex Female 10:55 PM CDT Gender Identity Female 10/30/2019 8:35 AM PERCUSSION TUNER Sexual Orientation Straight 10/30/2019 8: 35 AM PERCUSSION TUNER documented as of this encounter Plan of Treatment Upcoming Encounters Date Type Department Care Team (Late st Contact Info) Description 04/03/2025 8:40 AM CDT Office Visit [facility] Medical Group Family & Internal Medicine [address] [address] Nestor Fletcher MD [address] [place] [address] 08/26/2025 9:00 AM PERCUSSION TUNER Office Visit [facility] Multispecialty Care - [place] [address] [place] [phone] Francisco Levi DO [address] [place] [address] documented as of this encounter Visit Diagnoses Not on filedocumented in this encounter Additional Health Concerns Infection Onset Date Last Indicated Resolved Time COVID-19 Rule Out 01/17/2020 01/11/2020 01/17/2020 8:49 AM CDT COVID-19 Rule Out 01/31/2020 01/29/2020 01/31/2020 9:30 AM CDT COVID-19 Rule Out 02/10/2020 02/17/2020 02/17/2020 9:16 AM CDT COVID-19 Rule Out 02/22/2020 02/22/2020 02/24/2020 2:57 AM CDT COVID-19 Rule Out 03/13/2020 03/13/2020 03/15/2020 3:18 AM CDT COVID-19 Rule Out 05/15/2020 05/15/2020 05/16/2020 8:21 PM CDT COVID-19 Rule Out 05/25/2020 05/25/2020 05/27/2020 12:21 AM CDT COVID-19 Rule Out 06/26/2020 06/26/2020 06/27/2020 4:51 PM CDT COVID-19 Rule Out 07/06/2020 07/06/2020 07/08/2020 11:00 PM PERCUSSION TUNER COVID-19 Rule Out 07/09/2020 07/09/2020 07/12/2020 10:16 AM PERCUSSION TUNER COVID-19 Rule Out 11/14/2020 11/14/2020 11/15/2020 10:25 AM CDT COVID-19 Rule Out 01/05/2021 01/05/2021 01/05/2021 5:26 PM CDT COVID-19 Rule Out 12/02/2021 12/02/2021 12/02/2021 4:28 PM CDT COVID-19 Rule Out 05/20/2023 05/20/2023 05/20/2023 6:44 PM CDT COVID-19 Rule Out 09/11/2023 09/11/2023 09/11/2023 10:29 AM PERCUSSION TUNER COVID-19 Rule Out 03/18/2024 03/18/2024 03/18/2024 8:30 PM CDT COVID-19 Rule Out 05/27/2024 05/27/2024 05/27/2024 7:16 PM CDT documented as of this encounter Care Teams Baby Counselor Relationship Specialty Start Date End Date Tutu Hill MD [address] [facility] [address] [place] [phone] PCP - General FAMILY PRACTICE 08/09/18 03/19/20 Ary Rubalcava NP [address] [facility] [address] [place] [address] PCP - General Nurse Practitioner Family 03/20/20 709/23 None, MD Santana PCP - General 03/25/20 05/14/20 [place] [address] [facility] [place] [address] PCP - General FAMILY PRACTICE 05/15/20 documented as of this encounter
--- OUTSIDE RECORDS SUMMARY | 2025-03-30 10:03 | XMS_ITS | Encounter Summary ---
Author Organization [facility] Address [address] [place] [address] Care Team Providers Care Intramural Director Name Role Phone Nestor Fletcher MD Primary Care Provider [phone] Encounter Details Date Type Department Care Team (Late st Contact Info) Description 01/24/2022 [employer] Message Enc [facility] Medical Group Multispecialty Care - [facility] [address] [facility], [address] [place] [address] Pura Velazquez APRN 3 [facility] [address] [place] [address] Back Social History Tobacco Use Types Packs/Day Years [...] Sex Assigned at Female 10/30/2019 8:35 AM WEB ENGINEER Legal Sex Female 10:55 PM CDT Gender Identity Female 10/30/2019 8:35 AM WEB ENGINEER Sexual Orientation Straight 10/30/2019 8: 35 AM WEB ENGINEER COVID-19 Exposure Response Date Recorded In the last 10 days, have marielos valladares been in contact with someone who was confirmed or suspected to have Coronavirus/COVID-19? No / Unsure 01/26/2022 6:12 PM CDT documented as of this encounter [...] Progress Notes * Varsha Almonte MA - 01/24/2022 8:31 AM CDT Sending to Pura documented in this encounter Plan of Treatment Upcoming Encounters Date Type Department Care Team (Late st Contact Info) Description 04/03/2025 8:40 AM CDT Office Visit [facility] Medical Group Family & Internal Medicine [address] [address] [place] [address] [place] [address] 08/26/2025 9:00 AM WEB ENGINEER Office Visit [facility] Medical Group Multispecialty Care - [facility] [address] [place] [address] Francisco Levi DO [address] [place] [address] documented as of this encounter Visit Diagnoses Not on filedocumented in this encounter Additional Health Concerns Infection Onset Date Last Indicated Resolved Time COVID-19 Rule Out 05/20/2023 05/20/2023 05/20/2023 6:44 PM CDT COVID-19 Rule Out 09/11/2023 09/11/2023 09/11/2023 10:29 AM WEB ENGINEER COVID-19 Rule Out 03/18/2024 03/18/2024 03/18/2024 8:30 PM CDT COVID-19 Rule Out 05/27/2024 05/27/2024 05/27/2024 7:16 PM CDT Assessment Noted Time PHQ-9 Depression Total Score: 0 08/24/20 21 2:19 PM WEB ENGINEER documented as of this encounter Care Teams Intramural Director Relationship Specialty [place] [address] [place] [address] PCP - General FAMILY PRACTICE 05/15/20 documented as of this encounter
--- OUTSIDE RECORDS SUMMARY | 2025-03-30 10:03 | XMS_ITS | Encounter Summary ---
Author Organization [facility] Address [address] [place] [address] Care Team Providers Care Machine Filler Shredder Name Role Phone Netsor Fletcher MD Primary Care Provider [phone] Encounter Details Date Type Department Care Team (Late st Contact Info) Description 02/14/2022 [employer] Message [facility] [address] Angelica Archer, ELECTRIC SWITCH REPAIRER [address] [address] Sleep Social History Tobacco Use Types Packs/Day Years [...] Assigned at Female 10/30/2019 8:35 AM IT INTEGRATION ARCHITECT Legal Sex Female 10:55 PM CDT Gender Identity Female 10/30/2019 8:35 AM IT INTEGRATION ARCHITECT Sexual Orientation Straight 10/30/2019 8: 35 AM IT INTEGRATION ARCHITECT COVID-19 Exposure Response Date Recorded In the last 10 days, have yo u been in contact with someone who was confirmed or suspected to have Coronavirus/COVID-19? No / Unsure 02/16/2022 11:12 AM CDT documented as of this encounter Functional [...] Medical Group Family & Internal Medicine - [place] [address] [place] [address] Nestor Fletcher MD [address] [place] [address] 08/26/2025 9:00 AM IT INTEGRATION ARCHITECT Office Visit [facility] Medical Group Multispecialty Care - [address], [address] [place] [address] Francisco Levi, [address] [place] [address] documented as of this encounter Visit Diagnoses Not on filedocumented in this encounter Additional Health Concerns Infection Onset Date Last Indicated Resolved Time COVID-19 Rule Out 05/20/2023 05/20/2023 05/20/2023 6:44 PM CDT COVID-19 Rule Out 09/11/2023 09/11/2023 09/11/2023 10:29 AM IT INTEGRATION ARCHITECT COVID-19 Rule Out 03/18/2024 03/18/2024 03/18/2024 8:30 PM CDT COVID-19 Rule Out 05/27/2024 05/27/2024 05/27/2024 7:16 PM CDT Assessment Noted Time PHQ-9 Depression Total Score: 0 08/24/20 21 2:19 PM IT INTEGRATION ARCHITECT documented as of this encounter Care Teams Machine Filler Shredder Relationship Specialty [place] [address] [place] [address] PCP - General FAMILY PRACTICE 05/15/20 documented as of this encounter
--- OUTSIDE RECORDS SUMMARY | 2025-03-30 10:03 | XMS_ITS | Encounter Summary ---
Author Organization [facility] Address [address] [place] [address] Care Team Providers Care Electric Meter Inspector Name Role Phone Nestor Fletcher MD Primary Care Provider [phone] Encounter Details Date Type Department Care Team (Late st Contact Info) Description 02/02/2022 Matchbint Message Enc [facility] Medical Group Multispecialty Care - [facility] [address] [facility], [address] [place] [phone] Pura Velazquez APRN [address] [facility] [address] [place] [address] Surgery Social History Tobacco Use Types Packs/Day Years [...] Sex Assigned at Female 10/30/2019 8:35 AM TANK FARM ATTENDANT Legal Sex Female 10:55 PM CDT Gender Identity Female 10/30/2019 8:35 AM TANK FARM ATTENDANT Sexual Orientation Straight 10/30/2019 8: 35 AM TANK FARM ATTENDANT COVID-19 Exposure Response Date Recorded In [...] Progress Notes * Varsha Almonte MA - 02/03/2022 7:56 AM CDT Pura documented in this encounter Plan of Treatment Upcoming Encounters Date Type Department Care Team (Late st Contact Info) Description 04/03/2025 8:40 AM CDT Office Visit [facility] Medical Group Family & Internal Medicine [address] [address] [place] [address] [place] [address] 08/26/2025 9:00 AM TANK FARM ATTENDANT Office Visit [facility] Medical Group Multispecialty Care - [facility] [address] [place] [address] Francisco Levi DO [address] [facility] [address] [place] [address] documented as of this encounter Visit Diagnoses Not on filedocumented in this encounter Additional Health Concerns Infection Onset Date Last Indicated Resolved Time COVID-19 Rule Out 05/20/2023 05/20/2023 05/20/2023 6:44 PM CDT COVID-19 Rule Out 09/11/2023 09/11/2023 09/11/2023 10:29 AM TANK FARM ATTENDANT COVID-19 Rule Out 03/18/2024 03/18/2024 03/18/2024 8:30 PM CDT COVID-19 Rule Out 05/27/2024 05/27/2024 05/27/2024 7:16 PM CDT Assessment Noted Time PHQ-9 Depression Total Score: 0 08/24/20 21 2:19 PM TANK FARM ATTENDANT documented as of this encounter Care Teams Electric Meter Inspector Relationship Specialty [place] [address] [place] [address] PCP - General FAMILY PRACTICE 05/15/20 documented as of this encounter
--- OUTSIDE RECORDS SUMMARY | 2025-03-30 10:03 | XMS_ITS | Encounter Summary ---
Author Organization [facility] Address [address] [place] [address] Care Team Providers Care Mitten Stitcher Name Role Phone Nestor Fletcher MD Primary Care Provider [phone] Encounter Details Date Type Department Care Team (Late st Contact Info) Description 01/04/2022 [employer] Message Enc [facility] Medical Group Orth[facility] [address] [place] [address] [place] [address] [place] [address] PT Social History Tobacco Use [...] Sex Assigned at Female 10/30/2019 8:35 AM PERSONAL FINANCE INSTRUCTOR Legal Sex Female 10:55 PM CDT Gender Identity Female 10/30/2019 8:35 AM PERSONAL FINANCE INSTRUCTOR Sexual Orientation Straight 10/30/2019 8: 35 AM PERSONAL FINANCE INSTRUCTOR COVID-19 Exposure Response Date Recorded In the last 10 days, have yo u been in contact with someone who was confirmed or suspected to have Coronavirus/COVID-19? No / Unsure 01/04/2022 8:50 AM CDT documented as of this encounter [...] Description 04/03/2025 8:40 AM CDT Office Visit [facility] Medical Group Family & Internal Medicine - [place] [address] [place] [address] Nestor Fletcher MD [address] [place] [id number] 08/26/2025 9:00 AM PERSONAL FINANCE INSTRUCTOR Office Visit [facility] Medical Group Multispecialty Care - [address], [address] [place] [address] Francisco Levi DO [address] [place] [address] documented as of this encounter Visit Diagnoses Not on filedocumented in this encounter Additional Health Concerns Infection Onset Date Last Indicated Resolved Time COVID-19 Rule Out 05/20/2023 05/20/2023 05/20/2023 6:44 PM CDT COVID-19 Rule Out 09/11/2023 09/11/2023 09/11/2023 10:29 AM PERSONAL FINANCE INSTRUCTOR COVID-19 Rule Out 03/18/2024 03/18/2024 03/18/2024 8:30 PM CDT COVID-19 Rule Out 05/27/2024 05/27/2024 05/27/2024 7:16 PM CDT Assessment Noted Time PHQ-9 Depression Total Score: 0 08/24/20 21 2:19 PM PERSONAL FINANCE INSTRUCTOR documented as of this encounter Care Teams Mitten Stitcher Relationship Specialty [place] [address] [place] [address] PCP - General FAMILY PRACTICE 05/15/20 documented as of this encounter
--- OUTSIDE RECORDS SUMMARY | 2025-03-30 10:03 | XMS_ITS | Encounter Summary ---
Author Organization [facility] Address [address] [place] [address] Care Team Providers Care Powertrain Calibration Engineer Name Role Phone Nestor Fletcher MD Primary Care Provider [phone] Encounter Details Date Type Department Care Team (Late st Contact Info) Description 02/03/2022 [employer] Message Enc [facility] Medical Group Family & Internal Medicine [address] [address] Nestor Fletcher MD [address] [place] [address] Surgery Social History Tobacco Use Types Packs/Day [...] Sex Assigned at Female 10/30/2019 8:35 AM FURNITURE RENTAL CONSULTANT Legal Sex Female 10:55 PM CDT Gender Identity Female 10/30/2019 8:35 AM FURNITURE RENTAL CONSULTANT Sexual Orientation Straight 10/30/2019 8: 35 AM FURNITURE RENTAL CONSULTANT COVID-19 Exposure Response Date Recorded In the [...] Description 04/03/2025 8:40 AM CDT Office Visit [facility] Medical Group Family & Internal Medicine - [place] [address] [place] [address] Nestor Fletcher MD [address] [place] [address] 08/26/2025 9:00 AM FURNITURE RENTAL CONSULTANT Office Visit [facility] Medical Group Multispecialty Care - [address] [place] [address] Francisco Levi, DO [address] [place] [address] documented as of this encounter Visit Diagnoses Not on filedocumented in this encounter Additional Health Concerns Infection Onset Date Last Indicated Resolved Time COVID-19 Rule Out 05/20/2023 05/20/2023 05/20/2023 6:44 PM CDT COVID-19 Rule Out 09/11/2023 09/11/2023 09/11/2023 10:29 AM FURNITURE RENTAL CONSULTANT COVID-19 Rule Out 03/18/2024 03/18/2024 03/18/2024 8:30 PM CDT COVID-19 Rule Out 05/27/2024 05/27/2024 05/27/2024 7:16 PM CDT Assessment Noted Time PHQ-9 Depression Total Score: 0 08/24/20 21 2:19 PM FURNITURE RENTAL CONSULTANT documented as of this encounter Care Teams Powertrain Calibration Engineer Relationship Specialty [place] [address] [place] [address] PCP - General FAMILY PRACTICE 05/15/20 documented as of this encounter
--- OUTSIDE RECORDS SUMMARY | 2025-03-30 10:03 | XMS_ITS | Encounter Summary ---
Author Organization [facility] Address [address] [place] [address] Care Team Providers Care Ibm Bpm Architect Name Role Phone Nestor Fletcher MD Primary Care Provider [phone] Encounter Details Date Type Department Care Team (Late st Contact Info) Description 02/03/2022 [employer] Message Enc [facility] Medical Group [facility]le Specialists [facility] [address] [place] [address] Carlos A Ocasio, DPBrinda [address] [place] [address] Surgery Social History Tobacco Use Types Packs/Day [...] Sex Assigned at Female 10/30/2019 8:35 AM NURSING DEPARTMENT CHAIRPERSON Legal Sex Female 10:55 PM CDT Gender Identity Female 10/30/2019 8:35 AM NURSING DEPARTMENT CHAIRPERSON Sexual Orientation Straight 10/30/2019 8: 35 AM NURSING DEPARTMENT CHAIRPERSON COVID-19 Exposure Response Date Recorded In the [...] Description 04/03/2025 8:40 AM CDT Office Visit [facility] Medical Group Family & Internal Medicine - [place] [address] [place] [address] [place] Fletcher [place] [address] [place] [address] 08/26/2025 9:00 AM NURSING DEPARTMENT CHAIRPERSON Office Visit [facility] Medical Group Multispecialty Care - [address] [place] [address] Francisco Levi, [address] [place] [address] documented as of this encounter Visit Diagnoses Not on filedocumented in this encounter Additional Health Concerns Infection Onset Date Last Indicated Resolved Time COVID-19 Rule Out 05/20/2023 05/20/2023 05/20/2023 6:44 PM CDT COVID-19 Rule Out 09/11/2023 09/11/2023 09/11/2023 10:29 AM NURSING DEPARTMENT CHAIRPERSON COVID-19 Rule Out 03/18/2024 03/18/2024 03/18/2024 8:30 PM CDT COVID-19 Rule Out 05/27/2024 05/27/2024 05/27/2024 7:16 PM CDT Assessment Noted Time PHQ-9 Depression Total Score: 0 08/24/20 21 2:19 PM NURSING DEPARTMENT CHAIRPERSON documented as of this encounter Care Teams Ibm Bpm Architect Relationship Specialty [place] [address] [place] [address] PCP - General FAMILY PRACTICE 05/15/20 documented as of this encounter
--- OUTSIDE RECORDS SUMMARY | 2025-03-30 10:03 | XMS_ITS | Encounter Summary ---
Author Organization [facility] Address [address] [place] [address] Care Team Providers Care Quality Control Microbiology Supervisor Name Role Phone Nestor Fletcher MD Primary Care Provider [phone] Encounter Details Date Type Department Care Team (Late st Contact Info) Description 12/14/2021 Compendium Message [facility] Cardi[facility] Outreach Clinic[address] [address] Angelica Archer, LAST PATTERN GRADER [address] [address] Imaging Social History Tobacco Use Types Packs/Day Years Used Date Smoking Tobacco: Former Cigarettes 0.3 30.7 1 991 - 05/15/2021 Smokeless Tobacco: Never [...] Sex Assigned at Female 10/30/2019 8:35 AM PIN MACHINE TENDER Legal Sex Female 10:55 PM CDT Gender Identity Female 10/30/2019 8:35 AM PIN MACHINE TENDER Sexual Orientation Straight 10/30/2019 8: 35 AM PIN MACHINE TENDER COVID-19 Exposure Response Date Recorded In the last 10 days, have yo u been in contact with someone who was confirmed or suspected to have Coronavirus/COVID-19? No / Unsure 12/17/2021 10:04 AM CDT documented as of this encounter [...] Description 04/03/2025 8:40 AM CDT Office Visit [facility] Medical [facility] Family & Internal Medicine [facility] [address] [place] [address] [place] Fletcher [place] [address] [place] [address] 08/26/2025 9:00 AM PIN MACHINE TENDER Office Visit [facility] Medical [facility] Multispecialty Care [address] [place] [address] Francisco Levi DO [address] [place] [address] documented as of this encounter Visit Diagnoses Not on filedocumented in this encounter Additional Health Concerns Infection Onset Date Last Indicated Resolved Time COVID-19 Rule Out 05/20/2023 05/20/2023 05/20/2023 6:44 PM CDT COVID-19 Rule Out 09/11/2023 09/11/2023 09/11/2023 10:29 AM PIN MACHINE TENDER COVID-19 Rule Out 03/18/2024 03/18/2024 03/18/2024 8:30 PM CDT COVID-19 Rule Out 05/27/2024 05/27/2024 05/27/2024 7:16 PM CDT Assessment Noted Time PHQ-9 Depression Total Score: 0 08/24/20 21 2:19 PM PIN MACHINE TENDER documented as of this encounter Care Teams Quality Control Microbiology Supervisor Relationship Specialty [place] [address] [place] [address] PCP - General FAMILY PRACTICE 05/15/20 documented as of this encounter
--- OUTSIDE RECORDS SUMMARY | 2025-03-30 10:03 | XMS_ITS | Encounter Summary ---
Author Organization [facility] Address [facility] [place] [address] Care Team Providers Care Buncher Machine Name Role Phone Tutu Hill MD Primary Care Provider + IoniaAry NP Primary Care Provider + None, Provider Primary Care Provider Nestor Ma MD Primary Care Provider [phone] Encounter Details Date Type Department Care Team (Late st Contact Info) Description 06/15/2006 Abstract [facility] Conversion , Generic ConversionMD Social History Tobacco Use Types Packs/Day Years Used Date Smoking Tobacco: Never Assessed Comments Unknown Sex and Gender Information Value Date Recorded Sex Assigned at Female 10/30/2019 8:35 AM PORTABLE MACHINE SANDER Legal Sex Female 10:55 PM CDT Gender Identity Female 10/30/2019 8:35 AM PORTABLE MACHINE SANDER Sexual Orientation Straight 10/30/2019 8: 35 AM PORTABLE MACHINE SANDER documented as of this encounter Plan of Treatment Upcoming Encounters Date Type Department Care Team (Late st Contact Info) Description 04/03/2025 8:40 AM CDT Office Visit [facility] Medical Group Family & Internal Medicine [address] [address] Nestor Fletcher MD [address] [place] [address] 08/26/2025 9:00 AM PORTABLE MACHINE SANDER Office Visit [facility] Multispecialty Care - [place] [address] [place] [phone] Francisco Levi DO [address] [place] [address] documented as of this encounter Visit Diagnoses [...] Rule Out 07/06/2020 07/06/2020 07/08/2020 11:00 PM PORTABLE MACHINE SANDER COVID-19 Rule Out 07/09/2020 07/09/2020 07/12/2020 10:16 AM PORTABLE MACHINE SANDER COVID-19 Rule Out 11/14/2020 11/14/2020 11/15/2020 10:25 AM CDT COVID-19 Rule Out 01/05/2021 01/05/2021 01/05/2021 5:26 PM CDT COVID-19 Rule Out 12/02/2021 12/02/2021 12/02/2021 4:28 PM CDT COVID-19 Rule Out 05/20/2023 05/20/2023 05/20/2023 6:44 PM CDT COVID-19 Rule Out 09/11/2023 09/11/2023 09/11/2023 10:29 AM PORTABLE MACHINE SANDER COVID-19 Rule Out 03/18/2024 03/18/2024 03/18/2024 8:30 PM CDT COVID-19 Rule Out 05/27/2024 05/27/2024 05/27/2024 7:16 PM CDT documented as of this encounter Care Teams Buncher Machine Relationship Specialty Start Date End Date Tutu Hill MD [address] [facility] [address] [place] [phone] PCP - General FAMILY PRACTICE 08/09/18 03/19/20 Ary Rubalcava NP [address] [facility] [address] [place] [address] PCP - General Nurse Practitioner Family 03/20/20 709/23 None, MD Santana PCP - General 03/25/20 05/14/20 [place] [address] [facility] [place] [address] PCP - General FAMILY PRACTICE 05/15/20 documented as of this encounter
--- OUTSIDE RECORDS SUMMARY | 2025-03-30 10:03 | XMS_ITS | Encounter Summary ---
Author Organization [facility] Address [address] [place] [address] Care Team Providers Care Manga Artist Name Role Phone Nestor Fletcher MD Primary Care Provider [phone] Encounter Details Date Type Department Care Team (Late st Contact Info) Description 01/24/2022 [employer] Message Enc [facility] Medical Group Family & Internal Medicine [address] [address] Nestor Fletcher MD [address] [place] [address] Appointment Social History Tobacco Use Types Packs/Day Years [...] Sex Assigned at Female 10/30/2019 8:35 AM CONCRETE INSPECTOR Legal Sex Female 10:55 PM CDT Gender Identity Female 10/30/2019 8:35 AM CONCRETE INSPECTOR Sexual Orientation Straight 10/30/2019 8: 35 AM CONCRETE INSPECTOR COVID-19 Exposure Response Date Recorded In the [...] Status No 03/31/2020 2:12 AM CDT Kelly aHyes RN Active * Do you have difficulty [...] Description 04/03/2025 8:40 AM CDT Office Visit [facility] Medical Group Family & Internal Medicine - [place] [address] [place] [address] Nestor Fletcher MD [address] [place] [address] 08/26/2025 9:00 AM CONCRETE INSPECTOR Office Visit [facility] Medical Group Multispecialty Care - [address] [place] [address] Francisco Levi, DO [address] [place] [address] documented as of this encounter Visit Diagnoses Not on filedocumented in this encounter Additional Health Concerns Infection Onset Date Last Indicated Resolved Time COVID-19 Rule Out 05/20/2023 05/20/2023 05/20/2023 6:44 PM CDT COVID-19 Rule Out 09/11/2023 09/11/2023 09/11/2023 10:29 AM CONCRETE INSPECTOR COVID-19 Rule Out 03/18/2024 03/18/2024 03/18/2024 8:30 PM CDT COVID-19 Rule Out 05/27/2024 05/27/2024 05/27/2024 7:16 PM CDT Assessment Noted Time PHQ-9 Depression Total Score: 0 08/24/20 21 2:19 PM CONCRETE INSPECTOR documented as of this encounter Care Teams Manga Artist Relationship Specialty [place] [address] [place] [address] PCP - General FAMILY PRACTICE 05/15/20 documented as of this encounter
--- OUTSIDE RECORDS SUMMARY | 2025-03-30 10:03 | XMS_ITS | Encounter Summary ---
Author Organization [facility] Address [address] [place] [address] Care Team Providers Care Cutter Wet Machine Name Role Phone Nestor Fletcher MD Primary Care Provider [phone] Encounter Details Date Type Department Care Team (Late st Contact Info) Description 12/26/2021 ZEFRt Message Enc [facility] Medical Group Multispecialty Care - [facility] [address] [facility], [address] [place] [phone] Pura Velazquez APRN [address] [facility] [address] [place] [address] Massage Social History Tobacco Use Types Packs/Day Years [...] Sex Assigned at Female 10/30/2019 8:35 AM VISUAL AID EXPERT Legal Sex Female 10:55 PM CDT Gender Identity Female 10/30/2019 8:35 AM VISUAL AID EXPERT Sexual Orientation Straight 10/30/2019 8: 35 AM VISUAL AID EXPERT COVID-19 Exposure Response Date Recorded In the [...] documented in this encounter Progress Notes * Pura Velazquez, DEBBIE - 12/28/2021 10:50 AM Morales Holbrook RN 12/28/2021 10:44 AM CDT Pura, Would surgery be an option without doing the injection to verify the pain generator?? Let me know. She may have to go through the PT to get the injection, right? Thanks! ----- Message ----- From: Renu Marquez Sent: 12/27/2021 4:01 PM CDT To: Pura Licea Nurse Subject: Massage Alright. Ge t me on the schedule. Or whatever i have to do to get there. Thank you so much. documented in this encounter Plan of Treatment Upcoming Encounters Date Type Department Care Team (Late st Contact Info) Description 04/03/2025 8:40 AM CDT Office Visit [facility] Family & Internal Medicine [facility] [address] [place] [address] [place] [address] [place], [place] [id number] 08/26/2025 9:00 AM VISUAL AID EXPERT Office Visit [facility] Multispecialty Care - [facility] [address] [facility] [address] [place] [address] Francisco Levi DO [address] [facility] [address] [place] [address] documented as of this encounter Visit Diagnoses Not on filedocumented in this encounter Additional Health Concerns Infection Onset Date Last Indicated Resolved Time COVID-19 Rule Out 05/20/2023 05/20/2023 05/20/2023 6:44 PM CDT COVID-19 Rule Out 09/11/2023 09/11/2023 09/11/2023 10:29 AM VISUAL AID EXPERT COVID-19 Rule Out 03/18/2024 03/18/2024 03/18/2024 8:30 PM CDT COVID-19 Rule Out 05/27/2024 05/27/2024 05/27/2024 7:16 PM CDT Assessment Noted Time PHQ-9 Depression Total Score: 0 08/24/20 21 2:19 PM VISUAL AID EXPERT documented as of this encounter Care Teams Cutter Wet Machine Relationship Specialty [place] [address] [place] [address] PCP - General FAMILY PRACTICE 05/15/20 documented as of this encounter
--- OUTSIDE RECORDS SUMMARY | 2025-03-30 10:03 | XMS_ITS | Encounter Summary ---
Author Organization [facility] Address [address] [place] [address] Care Team Providers Care Diabetes Educator Name Role Phone Nestor Fletcher MD Primary Care Provider [phone] Encounter Details Date Type Department Care Team (Late st Contact Info) Description 09/19/2024 Coub Message Enc [facility] Medical Group Family & Internal Medicine [address] [address] Nestor Fletcher MD [address] [place] [address] Illness Social History Tobacco Use Types Packs/Day Years [...] Answer Date Recorded Patient Health Questionnaire-2 Score 1 08/22/2024 Comments No Sex and Gender Information Value Date Recorded Sex Assigned at Female 10/30/2019 8:35 AM RESIDENTIAL COUNSELOR Legal Sex Female 10:55 PM CDT Gender Identity Female 10/30/2019 8:35 AM RESIDENTIAL COUNSELOR Sexual Orientation Straight 10/30/2019 8: 35 AM RESIDENTIAL COUNSELOR documented as of this encounter Functional Status [...] Description 04/03/2025 8:40 AM CDT Office Visit [facility] Medical Group Family & Internal Medicine - [place] [address] [place] [address] Nestor Fletcher MD [address] [place] [address] 08/26/2025 9:00 AM RESIDENTIAL COUNSELOR Office Visit [facility] Multispecialty Care - [facility] 3 [facility] [address] [place] [address] Francisco Levi DO 3 [facility] [address] [place] [address] documented as of this encounter Goals Goal Patient Goal Type Associated Problems Recent Progress Patient-Stated? Author Health - patient able to perform ADLs independently Lifestyle No Vega i madhavi, Kareem Camacho RN documented as of this encounter Visit Diagnoses Not on filedocumented in this encounter Additional Health Concerns Assessment Noted Time PHQ-9 Depression Total Score: 0 02/26/20 22 9:40 AM CDT documented as of this encounter Care Teams Diabetes Educator Relationship Specialty [place] [address] [place] [address] PCP - General FAMILY PRACTICE 05/15/20 documented as of this encounter
--- OUTSIDE RECORDS SUMMARY | 2025-03-30 10:03 | XMS_ITS | Encounter Summary ---
Author Organization [facility] Address [address] [place] [address] Care Team Providers Care Ride Assembly Supervisor Name Role Phone Nestor Fletcher MD Primary Care Provider [phone] Encounter Details Date Type Department Care Team (Late st Contact Info) Description 12/17/[address] [facility] Medical Group Family & Internal Medicine [address] [address] Nestor Fletcher MD [address] [place] [address] Question regarding TSH W/REFLEX Social History [...] Sex Assigned at Female 10/30/2019 8:35 AM ANGIOGRAPHER Legal Sex Female 10:55 PM CDT Gender Identity Female 10/30/2019 8:35 AM ANGIOGRAPHER Sexual Orientation Straight 10/30/2019 8: 35 AM ANGIOGRAPHER COVID-19 Exposure Response Date Recorded In the last 10 days, have yo u been in contact with someone who was confirmed or suspected to have Coronavirus/COVID-19? No / Unsure 12/20/2021 1:06 PM CDT documented as of this encounter [...] 8:40 AM CDT Office Visit [facility] Medical Group Family & Internal Medicine - [place] [address] [place] [address] Nest[place] Fletcher [place] [id number] [place] [address] 08/26/2025 9:00 AM ANGIOGRAPHER Office Visit [facility] Medical Group Multispecialty Care - [address] [place] [address] Francisco Levi, [address] [place] [address] documented as of this encounter Visit Diagnoses Not on filedocumented in this encounter Additional Health Concerns Infection Onset Date Last Indicated Resolved Time COVID-19 Rule Out 05/20/2023 05/20/2023 05/20/2023 6:44 PM CDT COVID-19 Rule Out 09/11/2023 09/11/2023 09/11/2023 10:29 AM ANGIOGRAPHER COVID-19 Rule Out 03/18/2024 03/18/2024 03/18/2024 8:30 PM CDT COVID-19 Rule Out 05/27/2024 05/27/2024 05/27/2024 7:16 PM CDT Assessment Noted Time PHQ-9 Depression Total Score: 0 08/24/20 21 2:19 PM ANGIOGRAPHER documented as of this encounter Care Teams Ride Assembly Supervisor Relationship Specialty [place] [address] [place] [address] PCP - General FAMILY PRACTICE 05/15/20 documented as of this encounter
--- OUTSIDE RECORDS SUMMARY | 2025-03-30 10:03 | XMS_ITS | Encounter Summary ---
Author Organization [facility] Address [address] [place] [address] Care Team Providers Care Senior Patient Account Representative Name Role Phone Nestor Fletcher MD Primary Care Provider [phone] Encounter Details Date Type Department Care Team (Late st Contact Info) Description 12/08/2021 [employer] Message Enc [facility] Medical Group Multispecialty Care - [facility] 3 [facility], [address] [place] [phone] Pura Velazquez APRN 3 [facility] [address] [place] [address] Myelogram Social History Tobacco Use Types Packs/Day Years [...] please move on to questions 3-9 0 08/24/2021 Comments No Sex and Gender Information Value Date Recorded Sex Assigned at Female 10/30/2019 8:35 AM MECHANICAL DESIGN ENGINEER Legal Sex Female 10:55 PM CDT Gender Identity Female 10/30/2019 8:35 AM MECHANICAL DESIGN ENGINEER Sexual Orientation Straight 10/30/2019 8: 35 AM MECHANICAL DESIGN ENGINEER COVID-19 Exposure Response Date Recorded In the last 10 days, have marielos u been in contact with someone who was confirmed or suspected to have Coronavirus/COVID-19? No / Unsure 12/09/2021 11:13 AM CDT documented as of this encounter [...] Assessment Author Status No 03/31/2020 2:12 AM CINTHYAT Kelly Hayes RN Active * Calculated C-SSRS Risk Score (Lifetime/Recent) Answer Date of Assessment Author Status No Risk Indicated 12/09/2021 12:00 PM CDT June Benavidez RN Active * [place] Suicide Severity Rating Scale (Screener/Recent Self-Report) Question Answer Date of Assessment Author Status 1. Wish to be (Past 1 Month) No 12/09/2021 12:00 PM CINTHYAT Vani Benavidez RN Active 2. Non-Specific Active Suicidal Thoughts (Past 1 Month) No 12/09/2021 12:00 PM CINTHYAT Vani Benavidez RN Active 6. Suicidal Behavior (Lifetime) No 12/09/2021 12:00 PM Vani Sylvester RN Active documented as of this encounter Mental Status * Because of a physical, mental, or emotional condition, do you have serious difficulty concentrating, remembering, or making decisions? Answer Entry Date Author Status No 03/31/2020 2:12 AM CDT Kelly Hayes RN Active documented in this encounter Progress Notes * Varsha Almonte MA - 12/08/2021 3:15 PM CDT I called [facility] and left a message telling her to let the IR know that she has high anxiety aboutthe myelogram and they will give her some to relax her. I told her to call our office if she has any other questions. * Varsha Almonte MA - 12/08/2021 8:52 AM CDT Sending to Pura documented in this encounter Plan of Treatment Upcoming Encounters Date Type Department Care Team (Late st Contact Info) Description 04/03/2025 8:40 AM CDT Office Visit [facility] Family & Internal Medicine - [place] [address] [place] [address] [place] [address] [place] [address] 08/26/2025 9:00 AM MECHANICAL DESIGN ENGINEER Office Visit [facility] Multispecialty Care - [facility] [address] [facility] [place] [address] Francisco Levi DO 3 [facility] [address] [place] [address] documented as of this encounter Visit Diagnoses Not on filedocumented in this encounter Additional Health Concerns Infection Onset Date Last Indicated Resolved Time COVID-19 Rule Out 05/20/2023 05/20/2023 05/20/2023 6:44 PM CDT COVID-19 Rule Out 09/11/2023 09/11/2023 09/11/2023 10:29 AM MECHANICAL DESIGN ENGINEER COVID-19 Rule Out 03/18/2024 03/18/2024 03/18/2024 8:30 PM CDT COVID-19 Rule Out 05/27/2024 05/27/2024 05/27/2024 7:16 PM CDT Assessment Noted Time PHQ-9 Depression Total Score: 0 08/24/20 21 2:19 PM MECHANICAL DESIGN ENGINEER documented as of this encounter Care Teams Senior Patient Account Representative Relationship Specialty [place] [address] [place] [address] PCP - General FAMILY PRACTICE 05/15/20 documented as of this encounter
--- OUTSIDE RECORDS SUMMARY | 2025-03-30 10:03 | XMS_ITS | Encounter Summary ---
Author Organization [facility] Address [address] [place] [address] Care Team Providers Care Label Folder Name Role Phone Nestor Fletcher MD Primary Care Provider [phone] Encounter Details Date Type Department Care Team (Late st Contact Info) Description 12/06/2021 [employer] Message Enc [facility] Medical Group Family & Internal Medicine [address] [address] Nestor Fletcher MD [address] [place] [address] Shoulder and knees Social History Tobacco Use Types Packs/Day Years [...] Sex Assigned at Female 10/30/2019 8:35 AM GLUER AND WEDGER Legal Sex Female 10:55 PM CDT Gender Identity Female 10/30/2019 8:35 AM GLUER AND WEDGER Sexual Orientation Straight 10/30/2019 8: 35 AM GLUER AND WEDGER COVID-19 Exposure Response Date Recorded In the [...] AM CDT Kelly Hayes RN Active * Calculated C-SSRS Risk Score (Lifetime/Recent) Answer Date of Assessment Author Status No Risk Indicated 12/09/2021 12:00 PM CDT June Benavidez RN Active * [place] Suicide Severity Rating Scale (Screener/Recent Self-Report) Question Answer Date of Assessment Author Status 1. Wish to be (Past 1 Month) No 12/09/2021 12:00 PM CINTHYAT Vani Benavidez RN Active 2. Non-Specific Active Suicidal Thoughts (Past 1 Month) No 12/09/2021 12:00 PM CINTHYAT Vani Benavidez RN Active 6. Suicidal Behavior (Lifetime) No 12/09/2021 12:00 PM CINTHYAT Vani Benavidez RN Active documented as of this encounter Mental Status * Because of a physical, mental, or emotional condition, do you have serious difficulty concentrating, remembering, or making decisions? Answer Entry Date Author Status No 03/31/2020 2:12 AM CDT Kelly Hayes RN Active documented in this encounter Progress Notes * Marina Archer RN - 12/06/2021 8:31 AM CDT Printed for Dr Fletcher to advise. documented in this encounter Plan of Treatment Upcoming Encounters Date Type Department Care Team (Late st Contact Info) Description 04/03/2025 8:40 AM CDT Office Visit [facility] Family & Internal Medicine - [place] [address] [place] [address] [place] [address] [place], [place] [id number] 08/26/2025 9:00 AM GLUER AND WEDGER Office Visit [facility] Multispecialty Care - [facility] [address] [facility] [address] [place] [address] Francisco Levi DO [address] [facility] [address] [place] [address] documented as of this encounter Visit Diagnoses Not on filedocumented in this encounter Additional Health Concerns Infection Onset Date Last Indicated Resolved Time COVID-19 Rule Out 05/20/2023 05/20/2023 05/20/2023 6:44 PM CDT COVID-19 Rule Out 09/11/2023 09/11/2023 09/11/2023 10:29 AM GLUER AND WEDGER COVID-19 Rule Out 03/18/2024 03/18/2024 03/18/2024 8:30 PM CDT COVID-19 Rule Out 05/27/2024 05/27/2024 05/27/2024 7:16 PM CDT Assessment Noted Time PHQ-9 Depression Total Score: 0 08/24/20 2:19 PM GLUER AND WEDGER documented as of this encounter Care Teams Label Folder Relationship Specialty [place] [address] [place] [address] PCP - General FAMILY PRACTICE 05/15/20 documented as of this encounter
--- OUTSIDE RECORDS SUMMARY | 2025-03-30 10:03 | XMS_ITS | Encounter Summary ---
Author Organization [facility] Address [address] [place] [address] Care Team Providers Care Women'S Health Care Nurse Practitioner Name Role Phone Nestor Fletcher MD Primary Care Provider [phone] Encounter Details Date Type Department Care Team (Latest Contact Info) Description 01/27/2022 about.met Message Enc [facility] Medical Group Multispecialty Care - [facility] 3 [facility], [address] [place] [phone] Pura Velazquez APRN 3 [facility] [address] [place] [address] [email or web address] Social History Tobacco Use Types Packs/Day Years [...] Sex Assigned at Female 10/30/2019 8:35 AM MAGNETIC TAPE WINDER Legal Sex Female 10:55 PM CDT Gender Identity Female 10/30/2019 8:35 AM MAGNETIC TAPE WINDER Sexual Orientation Straight 10/30/2019 8: 35 AM MAGNETIC TAPE WINDER COVID-19 Exposure Response Date Recorded In the [...] Description 04/03/2025 8:40 AM CDT Office Visit [facility] Medical Group Family & Internal Medicine [address] [address] Nestor Fletcher MD [address] [place] [address] 08/26/2025 9:00 AM MAGNETIC TAPE WINDER Office Visit [facility] Medical Group Multispecialty Care - [facility] [address] [facility] [address] [place] [address] Francisco Levi DO [address] [facility] [address] [place] [address] documented as of this encounter Visit Diagnoses Not on filedocumented in this encounter Additional Health Concerns Infection Onset Date Last Indicated Resolved Time COVID-19 Rule Out 05/20/2023 05/20/2023 05/20/2023 6:44 PM CDT COVID-19 Rule Out 09/11/2023 09/11/2023 09/11/2023 10:29 AM MAGNETIC TAPE WINDER COVID-19 Rule Out 03/18/2024 03/18/2024 03/18/2024 8:30 PM CDT COVID-19 Rule Out 05/27/2024 05/27/2024 05/27/2024 7:16 PM CDT Assessment Noted Time PHQ-9 Depression Total Score: 0 08/24/20 21 2:19 PM MAGNETIC TAPE WINDER documented as of this encounter Care Teams Women'S Health Care Nurse Practitioner Relationship Specialty [place] [address] [place] [address] PCP - General FAMILY PRACTICE 05/15/20 documented as of this encounter
--- OUTSIDE RECORDS SUMMARY | 2025-03-30 10:04 | XMS_ITS | Encounter Summary ---
Author Organization [facility] Address [address] [place] [address] Care Team Providers Care Envelope Stamping Machine Operator Name Role Phone Nestor Fletcher MD Primary Care Provider [phone] Encounter Details Date Type Department Care Team (Late st Contact Info) Description 04/01/2022 Mippin Message Enc [facility] Medical Group [facility] [address] [place] [address] Carlos A Ocasio, DPBrinda [address] [place] [phone] Question Social History Tobacco Use Types Packs/Day Years [...] please move on to questions 3-9 0 04/05/2022 Comments No Sex and Gender Information Value Date Recorded Sex Assigned at Female 10/30/2019 8:35 AM CRUSHER SCREEN REPAIRER Legal Sex Female 10:55 PM CDT Gender Identity Female 10/30/2019 8:35 AM CRUSHER SCREEN REPAIRER Sexual Orientation Straight 10/30/2019 8: 35 AM CRUSHER SCREEN REPAIRER COVID-19 Exposure Response Date Recorded In the last 10 days, have yo u been in contact with someone who was confirmed or suspected to have Coronavirus/COVID-19? No / Unsure 03/29/2022 10:10 AM CDT documented as of this encounter [...] documented in this encounter Progress Notes * Renetta Bird MA - 04/04/2022 3:33 PM CDT Patient informed Dr. Ocasio said it was fine to soak feet. documented in this encounter Plan of Treatment Upcoming Encounters Date Type Department Care Team (Late st Contact Info) Description 04/03/2025 8:40 AM CDT Office Visit [facility] Medical Group Family & Internal Medicine [address] [address] [place] [address] [place] [address] 08/26/2025 9:00 AM CRUSHER SCREEN REPAIRER Office Visit [facility] Medical Group Multispecialty Care - [facility] [address] [facility] [address] [place] [address] Francisco Levi DO [address] [facility] [address] [place] [address] documented as of this encounter Visit Diagnoses Not on filedocumented in this encounter Additional Health Concerns Infection Onset Date Last Indicated Resolved Time COVID-19 Rule Out 05/20/2023 05/20/2023 05/20/2023 6:44 PM CDT COVID-19 Rule Out 09/11/2023 09/11/2023 09/11/2023 10:29 AM CRUSHER SCREEN REPAIRER COVID-19 Rule Out 03/18/2024 03/18/2024 03/18/2024 8:30 PM CDT COVID-19 Rule Out 05/27/2024 05/27/2024 05/27/2024 7:16 PM CDT Assessment Noted Time PHQ-9 Depression Total Score: 0 02/26/20 22 9:40 AM CDT documented as of this encounter Care Teams Envelope Stamping Machine Operator Relationship Specialty [place] [address] [place] [address] PCP - General FAMILY PRACTICE 05/15/20 documented as of this encounter
--- OUTSIDE RECORDS SUMMARY | 2025-03-30 10:04 | XMS_ITS | Data Portability ---
Author Organization [facility] IP Address [address] [place] [address] Care Team Providers Care Office Services Specialist Name Role Phone BENNY LEAL Primary Care Provider Assessment No assessment recorded. Plan of Treatment Reminders Order Date Submit Date Provider Last Modified By Organization Details Last Modified Time Details Appointments None record ed. Lab None record ed. Referral None record ed. Procedures None record ed. Surgeries None record ed. Imaging None record ed. Medication Orders None record ed. Patient TargetsNo targets recorded. Patient Instructions Encounter Date Encounter Id Patient Instructions Last Modified By Organization Details Last Modified Time 02/19/2025 [id number] treatment option s were discussed. This is same lesion she had on her right foot that perform surgery to correct. At this point I debrided the lesion with a sharp 15 blade. At this time we will continue as is and how she does. She will follow up as needed [email or web address] Not available 02/19/2025 16:18:17 Reason for Referral None Reported. Problems No Known Problems Medical Equipment None Reported. Allergies Allergen ID Allergen Name Allergen Category Reaction Reaction Severity Criticality Documentation Date Start Date Code Code System Note Provider Name and Address Organization Details Recorded Time acetamino phen / oxycodone medicatio n itching severe high 02/19/2025 83631 3 RxNorm YURIY Schreiber [facility] 5 15:26:30 163365 amoxicill in medicatio n other severe high 02/19/2025 723 RxNoYURIY De [place] Rosa [place] [facility] 5 15:26:51 Medications Name Sig Start Date Stop Date Status Note LastModified by Organization Details LastModified Time fluoxetine 40 mg capsule TAKE 1 CAPSULE BY MOUTH ONCE DAILY active Not Available Not Available No t Available doxycycline hyclate 100 mg capsule TAKE 1 CAPSULE BY MOUTH TWICE DAILY FOR 10 DAYS active Not Available Not Available No t Available trazodone 50 mg tablet TAKE 1 TABLET BY MOUTH NIGHTLY AT BEDTIME active Not Available Not Available No t Available cetirizine 10 mg tablet TAKE 1 TABLET BY MOUTH ONCE DAILY active Not Available Not Available No t Available tizanidine 4 mg tablet TAKE 1 TABLET BY MOUTH EVERY 8 HOURS NEEDED active Not Available Not Available No t Available sucralfate 1 gram tablet TAKE 1 TABLET BY MOUTH 4 TIMES DAILY NEEDED active Not Available Not Available No t Available prednisone 20 mg tablet TAKE 2 TABLETS BY MOUTH ONCE DAILY FOR 5 DAYS active Not Available Not Available No t Available sulfamethoxa zole 800 mg-trimethop rim 160 mg tablet TAKE 1 TABLET BY MOUTH TWICE DAILY FOR 10 DAYS active Not Available Not Available No t Available hydrocodone 10 mg-acetamino phen 325 mg tablet TAKE 1 TABLET BY MOUTH FIVE TIMES DAILY NEEDED MUST LAST 28 DAYS active Not Available Not Available No t Available triamcinolon e acetonide 0.1 % topical cream APPLY THIN LAYER EXTERNALLY TWICE DAILY active Not Available Not Available Not Available pantoprazole 40 mg tablet,delay ed release TAKE 1 TABLET BY MOUTH TWICE DAILY active Not Available Not Available No t Available levothyroxin e 200 mcg tablet TAKE 1 TABLET BY MOUTH IN THE MORNING active Not Available Not Available Not Available gabapentin 100 mg capsule TAKE 1 CAPSULE BY MOUTH THREE TIMES DAILY active Not Available Not Available Not Available lorazepam 1 mg tablet TAKE 1 TABLET BY MOUTH EVERY 8 HOURS NEEDED FOR ANXIETY active Not Available Not Available No t Available ondansetron 4 mg disintegrati ng tablet DISSOLVE 1 TABLET IN MOUTH EVERY 6 HOURS NEEDED FOR NAUSEA AND FOR VOMITING active Not Available Not Available No t Available Breo Ellipta 200 mcg-25 mcg/dose powder for inhalation INHALE 1 PUFF BY MOUTH ONCE DAILY active Not Available Not Available No t Available Vitals Date Recorded Body height Body mass index (BMI) Body weight Heart rate Body temperature Pain severity - 0-10 verbal numeric rating [Score] - Reported Systolic And Diastolic Provider Name and Address Organization Details Last Updated DateTime 5 167.64 cm 40.9 kg/m2 330001. 38 g 82 /min 97.77 [degF] 3 170/92 mm[Hg] Darbrad pierre YURIY Bailey [facility] SIF 15:25:08 Social History Question Answer Notes LastModified by Organizat ion Details LastModified Time Tobacco Smoking Status Never Smoker Vera YURIY Bailey null, [place] - [place] 02/19/2025 15:27:16 Do You Have An Advance Directive? No Information n ot available 02/19/2025 In The 14 Days Before Symptom Onset, Have You Had Close Contact With A Laboratory-confirm ed COVID-19 While That Case Was Ill? No Information n ot available 02/19/2025 In The 14 Days Before Symptom Onset, Have You Had Close Contact With A Person Who Is Under Investigation For COVID-19 While That Person Was Ill? No Information not available 02/19/2025 Have You Been To An Area Known To Be High Risk For COVID-19? No Information not available 02/19/2025 Do You Have A Medical Power Of Prosecuting Attorney? No Information not available 02/19/2025 What Was The Date Of Your Most Recent Tobacco Screening? 02/19/2025 Information not available 02/19/2025 What Is Your Relationship Status? Information not available 02/19/2025 Has Tobacco Cessation Counseling Been Provided? No Information not available 02/19/2025 Sex: Female Functional Status Question Answer Note LastModified by Organizat ion Details LastModified Time Do you use any illicit or recreational drugs? No Information not available 02/19/2025 Do you or have you ever used any other forms of tobacco or nicotine? No Information not available 02/19/2025 What is your level of alcohol consumption? None Information not available 02/19/2025 Mental Status None recorded. Family History Nothing Reported. Medical History Condition Response Thyroid Problems Y Back Pain Y Arthritis Y Cancer Y Hypertension Y Gynecological HistoryNo gynecological history recorded. 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 Health Concerns Section Related Observation LastModified by Organization Detai ls LastModified Time None Recorded Concern Status LastModified by Organization Details LastModified Time None Recorded Advance Directives Directive N: Payers Insurance Date Sequence Insurance Name Policy Number Policy [place] Covered Member ID [place] Member ID Guarantor Name 02/25/2025 1 [facility] [place] [place] [id number] Kristi Marquez [id number] Renu Marquez Notes Date Note Type Note Provider Name and Address Organization Details Recorded Time 02/19/2025 text/html ROS as noted in the HPI patient presents today for initial office visit complaining that she has a painful area underneath the 5th toe area of the left foot. He is a previous patient of mine from another practice which I did perform surgery on foot for same problem. She states it has just started on the left side. States that she did trimmed down a little herself because it was very large and painful Carlos A Ocasio DPM [address] [place], [address], [facility] 02/19/2025 16:18:30 OBGyn Episode No OBEpisode recorded.
--- OUTSIDE RECORDS SUMMARY | 2025-03-30 10:04 | XMS_ITS | Encounter Summary ---
Author Organization [facility] Address [address] [place] [address] Care Team Providers Care World History Teacher Name Role Phone None, Provider Primary Care Provider Nestor Ma MD Primary Care Provider [phone] Encounter Details Date Type Department Care Team (Late st Contact Info) Description 04/21/2020 [employer] Message Enc [facility] Medical Group General Surgery - [place] [address] [facility], [address] [place] [address] [place] [address] [place], [place] [address]e [facility] [address] [place] [address] RE: Follow Up/Update Social History Tobacco Use Types Packs/Day Years Used Date Smoking Tobacco: Every Day Cigarettes 0.5 34.6 Started: 1989 Smokeless Tobacco: Never Alcohol Use Standard Drinks/Week Comments Yes 0 (1 standard drink = 0.6 oz pur e alcohol) 2-3 times a year AUDIT-C Answer Date Recorded Frequency of Alcohol Consumption Monthly or less 10/30/2019 Average Number of Drinks 1 or 2 020 Frequency of Binge Drinking Never 10/06 PHQ-2 Answer Date Recorded PHQ-2 Score - If the patient scores above 3, please move on to questions 3-9 1 04/14/2020 Comments No Sex and Gender Information Value Date Recorded Sex Assigned at Female 10/30/2019 8:35 AM COST ANALYST Legal Sex Female 10:55 PM CDT Gender Identity Female 10/30/2019 8:35 AM COST ANALYST Sexual Orientation Straight 10/30/2019 8: 35 AM COST ANALYST COVID-19 Exposure Response Date Recorded In the last month, have you been in contact with someone who was confirmed or suspected to have Coronavirus / COVID-19? No / Unsure 04/24/2020 10:13 AM CDT documented as of this encounter [...] Description 04/03/2025 8:40 AM CDT Office Visit [facility] Medical Group Family & Internal Medicine [facility] [address] [place] [address] [place] [id number] [place] [address] 08/26/2025 9:00 AM COST ANALYST Office Visit [facility] Medical Group Multispecialty [address] [place] [address] Francisco Levi DO [address] [place] [address] documented as of this encounter Visit Diagnoses Not on filedocumented in this encounter Additional Health Concerns Infection Onset Date Last Indicated Resolved Time COVID-19 Rule Out 05/15/2020 05/15/2020 05/16/2020 8:21 PM CDT COVID-19 Rule Out 05/25/2020 05/25/2020 05/27/2020 12:21 AM CDT COVID-19 Rule Out 06/26/2020 06/26/2020 06/27/2020 4:51 PM CDT COVID-19 Rule Out 07/06/2020 07/06/2020 07/08/2020 11:00 PM COST ANALYST COVID-19 Rule Out 07/09/2020 07/09/2020 07/12/2020 10:16 AM COST ANALYST COVID-19 Rule Out 11/14/2020 11/14/2020 11/15/2020 10:25 AM CDT COVID-19 Rule Out 01/05/2021 01/05/2021 01/05/2021 5:26 PM CDT COVID-19 Rule Out 12/02/2021 12/02/2021 12/02/2021 4:28 PM CDT COVID-19 Rule Out 05/20/2023 05/20/2023 05/20/2023 6:44 PM CDT COVID-19 Rule Out 09/11/2023 09/11/2023 09/11/2023 10:29 AM COST ANALYST COVID-19 Rule Out 03/18/2024 03/18/2024 03/18/2024 8:30 PM CDT COVID-19 Rule Out 05/27/2024 05/27/2024 05/27/2024 7:16 PM CDT documented as of this encounter Care Teams World History Teacher Relationship Specialty Start Date End Date None, Provider, PCP - General 03/25/20 05/14/20 [place] [address] [place] [address] PCP - General FAMILY PRACTICE 05/15/20 documented as of this encounter
--- OUTSIDE RECORDS SUMMARY | 2025-03-30 10:04 | XMS_ITS | Encounter Summary ---
Author Organization [facility] Address [facility] [place] [address] Care Team Providers Care Electronic Equipment Set Up Operator Name Role Phone None, Provider Primary Care Provider Nestor Ma MD Primary Care Provider [phone]- [phone] Encounter Details Date Type Department Care Team (Latest Contact Info) Description 03/26/2020 [facility] AT [address] [address] Angelica Archer, JD [address] [address] Follow Up/Update Social History Tobacco Use Types [...] 020 Frequency of Binge Drinking Never 10/06 Comments No Sex and Gender Information Value Date Recorded Sex Assigned at Female 10/30/2019 8:35 AM SELECT BANKER Legal Sex Female 10:55 PM CDT Gender Identity Female 10/30/2019 8:35 AM SELECT BANKER Sexual Orientation Straight 10/30/2019 8: 35 AM SELECT BANKER COVID-19 Exposure Response Date Recorded In the last month, have you been in contact with someone who was confirmed or suspected to have Coronavirus / COVID-19? No / Unsure 03/27/2020 10:39 AM CDT documented as of this encounter Progress Notes * Angelica Archer NP - 03/31/2020 8:31 AM CDT Returned to work today. Reviewed message below. Patient currently at [facility]. No recs from my standpoint at this time. * Vee Eddy RN - 03/27/2020 8:25 AM CDT See below documented in this encounter Plan of Treatment Upcoming Encounters Date Type Department Care Team (Late st Contact Info) Description 04/03/2025 8:40 AM CDT Office Visit [facility] Family & Internal Medicine [address] [address] Nestor Fletcher MD [address] [place] [address] 08/26/2025 9:00 AM SELECT BANKER Office Visit [facility] Multispecialty Care - [facility] [address] [facility] [address] [place] [phone] Francisco Levi DO [address] [facility] [address] [place] [address] documented as of this encounter Visit Diagnoses Not on filedocumented in this encounter Additional Health Concerns Infection Onset Date Last Indicated Resolved Time COVID-19 Rule Out 05/15/2020 05/15/2020 05/16/2020 8:21 PM CDT COVID-19 Rule Out 05/25/2020 05/25/2020 05/27/2020 12:21 AM CDT COVID-19 Rule Out 06/26/2020 06/26/2020 06/27/2020 4:51 PM CDT COVID-19 Rule Out 07/06/2020 07/06/2020 07/08/2020 11:00 PM SELECT BANKER COVID-19 Rule Out 07/09/2020 07/09/2020 07/12/2020 10:16 AM SELECT BANKER COVID-19 Rule Out 11/14/2020 11/14/2020 11/15/2020 10:25 AM CDT COVID-19 Rule Out 01/05/2021 01/05/2021 01/05/2021 5:26 PM CDT COVID-19 Rule Out 12/02/2021 12/02/2021 12/02/2021 4:28 PM CDT COVID-19 Rule Out 05/20/2023 05/20/2023 05/20/2023 6:44 PM CDT COVID-19 Rule Out 09/11/2023 09/11/2023 09/11/2023 10:29 AM SELECT BANKER COVID-19 Rule Out 03/18/2024 03/18/2024 03/18/2024 8:30 PM CDT COVID-19 Rule Out 05/27/2024 05/27/2024 05/27/2024 7:16 PM CDT documented as of this encounter Care Teams Electronic Equipment Set Up Operator Relationship Specialty Start Date End Date None, Provider, PCP - General 03/25/20 05/14/20 [place] [address] [place] [address] PCP - General FAMILY PRACTICE 05/15/20 documented as of this encounter
--- OUTSIDE RECORDS SUMMARY | 2025-03-30 10:04 | XMS_ITS | Encounter Summary ---
Author Organization [facility] Address [address] [place] [address] Care Team Providers Care Marketing Director Name Role Phone None, Provider Primary Care Provider Nestor Ma MD Primary Care Provider [phone]- [phone] Encounter Details Date Type Department Care Team (Late st Contact Info) Description 04/30/2020 [employer] Message Enc [facility] Medical Group Family & Internal Medicine [facility] [address] [place] [address] Nest[place] Fletcher [place] [id number] [place] [address] Question Social History Tobacco Use Types Packs/Day [...] Sex Assigned at Female 10/30/2019 8:35 AM SENIOR GROUP MANAGER Legal Sex Female 10:55 PM CDT Gender Identity Female 10/30/2019 8:35 AM SENIOR GROUP MANAGER Sexual Orientation Straight 10/30/2019 8: 35 AM SENIOR GROUP MANAGER COVID-19 Exposure Response Date Recorded In the last month, have you been in contact with someone who was confirmed or suspected to have Coronavirus / COVID-19? No / Unsure 05/01/2020 10:46 AM CDT documented as of this encounter [...] Description 04/03/2025 8:40 AM CDT Office Visit [facility] Medical Group Family & Internal Medicine - [place] [address] [place] [address] Nestor Fletcher MD [address] [place] [phone] 08/26/2025 9:00 AM SENIOR GROUP MANAGER Office Visit [facility] Medical Group Multispecialty Care - [address], [address] [place] [address] Francisco Levi DO [address] [place] [address] documented as of this encounter Visit Diagnoses Not on filedocumented in this encounter Additional Health Concerns Infection Onset Date Last Indicated Resolved Time COVID-19 Rule Out 05/15/2020 05/15/2020 05/16/2020 8:21 PM CDT COVID-19 Rule Out 05/25/2020 05/25/2020 05/27/2020 12:21 AM CDT COVID-19 Rule Out 06/26/2020 06/26/2020 06/27/2020 4:51 PM CDT COVID-19 Rule Out 07/06/2020 07/06/2020 07/08/2020 11:00 PM SENIOR GROUP MANAGER COVID-19 Rule Out 07/09/2020 07/09/2020 07/12/2020 10:16 AM SENIOR GROUP MANAGER COVID-19 Rule Out 11/14/2020 11/14/2020 11/15/2020 10:25 AM CDT COVID-19 Rule Out 01/05/2021 01/05/2021 01/05/2021 5:26 PM CDT COVID-19 Rule Out 12/02/2021 12/02/2021 12/02/2021 4:28 PM CDT COVID-19 Rule Out 05/20/2023 05/20/2023 05/20/2023 6:44 PM CDT COVID-19 Rule Out 09/11/2023 09/11/2023 09/11/2023 10:29 AM SENIOR GROUP MANAGER COVID-19 Rule Out 03/18/2024 03/18/2024 03/18/2024 8:30 PM CDT COVID-19 Rule Out 05/27/2024 05/27/2024 05/27/2024 7:16 PM CDT documented as of this encounter Care Teams Marketing Director Relationship Specialty Start Date End Date None, Provider, PCP - General 03/25/20 05/14/20 [place] [address] [place] [address] PCP - General FAMILY PRACTICE 05/15/20 documented as of this encounter
--- OUTSIDE RECORDS SUMMARY | 2025-03-30 10:04 | XMS_ITS | Encounter Summary ---
Author Organization [facility] Address Count includes the [facility] [place] [address] Care Team Providers Care Division Director Name Role Phone Tutu Hill MD Primary Care Provider + KhadarAry caldera NP Primary Care Provider + None, Provider Primary Care Provider Nestor Ma MD Primary Care Provider [phone]- [phone] Encounter Details Date Type Department Care Team (Late st Contact Info) Description 01/21/2016 Abstract [facility] Tutu Hill MD [address] [address] Social History Tobacco Use Types Packs/Day Years Used Date Smoking Tobacco: Never Assessed Comments Unknown Sex and Gender Information Value Date Recorded Sex Assigned at Female 10/30/2019 8:35 AM COLLECTION SYSTEMS MODELER Legal Sex Female 10:55 PM CDT Gender Identity Female 10/30/2019 8:35 AM COLLECTION SYSTEMS MODELER Sexual Orientation Straight 10/30/2019 8: 35 AM COLLECTION SYSTEMS MODELER documented as of this encounter Miscellaneous Notes * Letter - Tutu Hill MD - 01/21/2016 12:00 AM CDT January 21, 2016 Renu Marquez [address] [place] [address] Dear Renu Marquez, Thank you for choosing [facility] for your health care needs. We appreciate the opportunity to help you maintain your well being. You recently had your well woman exam and the results are back. Your mammogram results came back normal. Please remember to follow up next year at this time for your annual exam. If you have any questions please feel free to call the office at [phone], Option #3 or Options #1 to make an appointment to discuss these results. Respectfully Yours, Electronically Signed by: Tutu Hill MD Cc: Patient?s Medical Record ECTION SYSTEMS MODELER documented in this encounter Plan of Treatment Upcoming Encounters Date Type Department Care Team (Late st Contact Info) Description 04/03/2025 8:40 AM CDT Office Visit [facility] Family & Internal Medicine - [address] [phone] Nestor Fletcher MD [address] [place] [address] 08/26/2025 9:00 AM COLLECTION SYSTEMS MODELER Office Visit [facility] Multispecialty Care - [facility] [address] [place] [address] Francisco Levi DO [address] [place] [address] documented as of this encounter Visit Diagnoses [...] Rule Out 07/06/2020 07/06/2020 07/08/2020 11:00 PM COLLECTION SYSTEMS MODELER COVID-19 Rule Out 07/09/2020 07/09/2020 07/12/2020 10:16 AM COLLECTION SYSTEMS MODELER COVID-19 Rule Out 11/14/2020 11/14/2020 11/15/2020 10:25 AM CDT COVID-19 Rule Out 01/05/2021 01/05/2021 01/05/2021 5:26 PM CDT COVID-19 Rule Out 12/02/2021 12/02/2021 12/02/2021 4:28 PM CDT COVID-19 Rule Out 05/20/2023 05/20/2023 05/20/2023 6:44 PM CDT COVID-19 Rule Out 09/11/2023 09/11/2023 09/11/2023 10:29 AM COLLECTION SYSTEMS MODELER COVID-19 Rule Out 03/18/2024 03/18/2024 03/18/2024 8:30 PM CDT COVID-19 Rule Out 05/27/2024 05/27/2024 05/27/2024 7:16 PM CDT documented as of this encounter Care Teams Division Director Relationship Specialty Start Date End Date Tutu Hill MD [address] [facility] [address] [place] [address] PCP - General FAMILY PRACTICE 08/09/18 03/19/20 Ary Rubalcava NP [address] [facility] [address] [place] [address] PCP - General Nurse Practitioner Family 03/20/20 7/09/23 None, Provider, PCP - General 03/25/20 05/14/20 [place] [address] [place] [address] PCP - General FAMILY PRACTICE 05/15/20 documented as of this encounter
--- OUTSIDE RECORDS SUMMARY | 2025-03-30 10:04 | XMS_ITS | Encounter Summary ---
Author Organization [facility] Address [address] [place] [address] Care Team Providers Care Real Estate Site Analyst Name Role Phone None, Provider Primary Care Provider Nestor Ma MD Primary Care Provider [phone]- [phone] Encounter Details Date Type Department Care Team (Late st Contact Info) Description 04/21/2020 [employer] Message Enc [facility] Medical Group Family & Internal Medicine [facility] [id number] [place] [address] Nestor Fletcher MD [address] [place] [address] RE: Question Social History Tobacco Use Types Packs/Day [...] Sex Assigned at Female 10/30/2019 8:35 AM AUTOMOTIVE STARTER REPAIRER Legal Sex Female 10:55 PM CDT Gender Identity Female 10/30/2019 8:35 AM AUTOMOTIVE STARTER REPAIRER Sexual Orientation Straight 10/30/2019 8: 35 AM AUTOMOTIVE STARTER REPAIRER COVID-19 Exposure Response Date Recorded In [...] Description 04/03/2025 8:40 AM CDT Office Visit [facility] Medical Group Family & Internal Medicine - [place] [address] [place] [address] Nestor Fletcher MD [address] [place] [address] 08/26/2025 9:00 AM AUTOMOTIVE STARTER REPAIRER Office Visit [facility] Medical Group Multispecialty Care - [address] [place] [address] Francisco Levi DO [address] [place] [address] documented as of this encounter Visit Diagnoses Not on filedocumented in this encounter Additional Health Concerns Infection Onset Date Last Indicated Resolved Time COVID-19 Rule Out 05/15/2020 05/15/2020 05/16/2020 8:21 PM CDT COVID-19 Rule Out 05/25/2020 05/25/2020 05/27/2020 12:21 AM CDT COVID-19 Rule Out 06/26/2020 06/26/2020 06/27/2020 4:51 PM CDT COVID-19 Rule Out 07/06/2020 07/06/2020 07/08/2020 11:00 PM AUTOMOTIVE STARTER REPAIRER COVID-19 Rule Out 07/09/2020 07/09/2020 07/12/2020 10:16 AM AUTOMOTIVE STARTER REPAIRER COVID-19 Rule Out 11/14/2020 11/14/2020 11/15/2020 10:25 AM CDT COVID-19 Rule Out 01/05/2021 01/05/2021 01/05/2021 5:26 PM CDT COVID-19 Rule Out 12/02/2021 12/02/2021 12/02/2021 4:28 PM CDT COVID-19 Rule Out 05/20/2023 05/20/2023 05/20/2023 6:44 PM CDT COVID-19 Rule Out 09/11/2023 09/11/2023 09/11/2023 10:29 AM AUTOMOTIVE STARTER REPAIRER COVID-19 Rule Out 03/18/2024 03/18/2024 03/18/2024 8:30 PM CDT COVID-19 Rule Out 05/27/2024 05/27/2024 05/27/2024 7:16 PM CDT documented as of this encounter Care Teams Real Estate Site Analyst Relationship Specialty Start Date End Date None, Provider, PCP - General 03/25/20 05/14/20 [place] [address] [place] [address] PCP - General FAMILY PRACTICE 05/15/20 documented as of this encounter
--- OUTSIDE RECORDS SUMMARY | 2025-03-30 10:04 | XMS_ITS | Encounter Summary ---
Author Organization [facility] Address [address] [place] [address] Care Team Providers Care Transplant Case Manager Name Role Phone None, Provider Primary Care Provider Nestor Ma MD Primary Care Provider [phone] Encounter Details Date Type Department Care Team (Late st Contact Info) Description 04/27/2020 [employer] Message Enc [facility] Medical Group Multispecialty Care - [facility] [address] [facility], [address] [place] [address] Tae Narvaez MD Question Social History Tobacco Use Types Packs/Day [...] Sex Assigned at Female 10/30/2019 8:35 AM SWEATER OPERATOR Legal Sex Female 10:55 PM CDT Gender Identity Female 10/30/2019 8:35 AM SWEATER OPERATOR Sexual Orientation Straight 10/30/2019 8: 35 AM SWEATER OPERATOR COVID-19 Exposure Response Date Recorded In [...] Progress Notes * Varsha Almonte MA - 05/01/2020 1:14 PM CDT I called Renu and told her I talked to Dr. Narvaez about this. He said to bring her in for an appt because she needs surgery but she will have to get pulmonary issues under control before surgery as she will need pulmonary clearance. Renu has an appt on 05/19 with pulm her appt with NEP has been scheduled on 05/21. Patient V/U. documented in this encounter Plan of Treatment Upcoming Encounters Date Type Department Care Team (Late st Contact Info) Description 04/03/2025 8:40 AM CDT Office Visit [facility] Family & Internal Medicine - [place] [address] [place] [address] [place] [address] [place] [address] 08/26/2025 9:00 AM SWEATER OPERATOR Office Visit [facility] Multispecialty Care - [facility] [address] [place] [address] Francisco Levi DO [address] [place] [address] documented as of this encounter Visit Diagnoses Not on filedocumented in this encounter Additional Health Concerns Infection Onset Date Last Indicated Resolved Time COVID-19 Rule Out 05/15/2020 05/15/2020 05/16/2020 8:21 PM CDT COVID-19 Rule Out 05/25/2020 05/25/2020 05/27/2020 12:21 AM CDT COVID-19 Rule Out 06/26/2020 06/26/2020 06/27/2020 4:51 PM CDT COVID-19 Rule Out 07/06/2020 07/06/2020 07/08/2020 11:00 PM SWEATER OPERATOR COVID-19 Rule Out 07/09/2020 07/09/2020 07/12/2020 10:16 AM SWEATER OPERATOR COVID-19 Rule Out 11/14/2020 11/14/2020 11/15/2020 10:25 AM CDT COVID-19 Rule Out 01/05/2021 01/05/2021 01/05/2021 5:26 PM CDT COVID-19 Rule Out 12/02/2021 12/02/2021 12/02/2021 4:28 PM CDT COVID-19 Rule Out 05/20/2023 05/20/2023 05/20/2023 6:44 PM CDT COVID-19 Rule Out 09/11/2023 09/11/202309/11/2023 10:29 AM SWEATER OPERATOR COVID-19 Rule Out 03/18/2024 03/18/2024 03/18/2024 8:30 PM CDT COVID-19 Rule Out 05/27/2024 05/27/2024 05/27/2024 7:16 PM CDT documented as of this encounter Care Teams Transplant Case Manager Relationship Specialty Start Date End Date None, Provider, PCP - General 03/25/20 05/14/20 [place] [address] [place] [address] PCP - General FAMILY PRACTICE 05/15/20 documented as of this encounter
--- OUTSIDE RECORDS SUMMARY | 2025-03-30 10:04 | XMS_ITS | Encounter Summary ---
Author Organization [facility] Address [address] [place] [address] Care Team Providers Care Cigarette Filter Inspector Name Role Phone Nestor Fletcher MD Primary Care Provider [phone] Encounter Details Date Type Department Care Team (Late st Contact Info) Description 03/11/2022 [employer] Message Enc [facility] Medical Group Foot & Ankle Specialists [facility] [address] [place] [address] Carlos A Ocasio, DPBrinda [address] [place] [address] Surgery Social History Tobacco Use Types [...] please move on to questions 3-9 0 02/25/2022 Comments No Sex and Gender Information Value Date Recorded Sex Assigned at Female 10/30/2019 8:35 AM EDUCATION SUPERVISOR Legal Sex Female 10:55 PM CDT Gender Identity Female 10/30/2019 8:35 AM EDUCATION SUPERVISOR Sexual Orientation Straight 10/30/2019 8: 35 AM EDUCATION SUPERVISOR COVID-19 Exposure Response Date Recorded In the last 10 days, have yo u been in contact with someone who was confirmed or suspected to have Coronavirus/COVID-19? No / Unsure 03/08/2022 8:27 AM CDT documented as of this encounter [...] Description 04/03/2025 8:40 AM CDT Office Visit [facility] Medical Group Family & Internal Medicine - [place] [address] [place] [address] [place] Fletcher [place] [id number] [place] [address] 08/26/2025 9:00 AM EDUCATION SUPERVISOR Office Visit [facility] Medical Group Multispecialty Care - [address] [place] [address] Francisco Levi, DO [address] [place] [address] documented as of this encounter Visit Diagnoses Not on filedocumented in this encounter Additional Health Concerns Infection Onset Date Last Indicated Resolved Time COVID-19 Rule Out 05/20/2023 05/20/2023 05/20/2023 6:44 PM CDT COVID-19 Rule Out 09/11/2023 09/11/2023 09/11/2023 10:29 AM EDUCATION SUPERVISOR COVID-19 Rule Out 03/18/2024 03/18/2024 03/18/2024 8:30 PM CDT COVID-19 Rule Out 05/27/2024 05/27/2024 05/27/2024 7:16 PM CDT Assessment Noted Time PHQ-9 Depression Total Score: 0 02/26/20 22 9:40 AM CDT documented as of this encounter Care Teams Cigarette Filter Inspector Relationship Specialty [place] [address] [place] [address] PCP - General FAMILY PRACTICE 05/15/20 documented as of this encounter
--- OUTSIDE RECORDS SUMMARY | 2025-03-30 10:04 | XMS_ITS | Encounter Summary ---
Author Organization [facility] Address [address] [place] [address] Care Team Providers Care Application Coordinator Name Role Phone Nestor Fletcher MD Primary Care Provider [phone] Encounter Details Date Type Department Care Team (Late st Contact Info) Description 02/28/[address] [facility] Medical Group Multispecialty Care - [facility] [address] [facility], [address] [place] [phone] Pura Velazquez APRN [address] [facility] [address] [place] [address] Appt Social History Tobacco Use Types Packs/Day Years [...] Sex Assigned at Female 10/30/2019 8:35 AM DATABASE DESIGNER Legal Sex Female 10:55 PM CDT Gender Identity Female 10/30/2019 8:35 AM DATABASE DESIGNER Sexual Orientation Straight 10/30/2019 8: 35 AM DATABASE DESIGNER COVID-19 Exposure Response Date Recorded In the last 10 days, have marielos u been in contact with someone who was confirmed or suspected to have Coronavirus/COVID-19? No / Unsure 03/02/2022 1:19 PM CDT documented as of this encounter [...] 8:40 AM CDT Office Visit [facility] Medical [facility] Family & Internal Medicine [facility] [address] [place] [address] [place] Fletcher [place] [id number] [place] [address] 08/26/2025 9:00 AM DATABASE DESIGNER Office Visit [facility] Mult[facility]ty Care - [facility] [address] [facility] [address] [place] [address] Francisco Levi DO [address] [facility] [address] [place] [address] documented as of this encounter Visit Diagnoses Not on filedocumented in this encounter Additional Health Concerns Infection Onset Date Last Indicated Resolved Time COVID-19 Rule Out 05/20/2023 05/20/2023 05/20/2023 6:44 PM CDT COVID-19 Rule Out 09/11/2023 09/11/2023 09/11/2023 10:29 AM DATABASE DESIGNER COVID-19 Rule Out 03/18/2024 03/18/2024 03/18/2024 8:30 PM CDT COVID-19 Rule Out 05/27/2024 05/27/2024 05/27/2024 7:16 PM CDT Assessment Noted Time PHQ-9 Depression Total Score: 0 02/26/20 22 9:40 AM CDT documented as of this encounter Care Teams Application Coordinator Relationship Specialty [place] [address] [place] [address] PCP - General FAMILY PRACTICE 05/15/20 documented as of this encounter
--- OUTSIDE RECORDS SUMMARY | 2025-03-30 10:04 | XMS_ITS | Encounter Summary ---
Author Organization [facility] Address [facility] [place] [address] Care Team Providers Care Insurance Rater Name Role Phone Tutu Hill MD Primary Care Provider + ImmaculataAry NP Primary Care Provider + None, Provider Primary Care Provider Nestor Ma MD Primary Care Provider [phone] Encounter Details Date Type Department Care Team (Latest Contact Info) Description 07/10/[address] [facility] Medical Group Mago French MD Social History Tobacco Use Types Packs/Day Years Used Date Smoking Tobacco: Never Assessed Comments Unknown Sex and Gender Information Value Date Recorded Sex Assigned at Female 10/30/2019 8:35 AM TOBACCO DRIER OPERATOR Legal Sex Female 10:55 PM CDT Gender Identity Female 10/30/2019 8:35 AM TOBACCO DRIER OPERATOR Sexual Orientation Straight 10/30/2019 8: 35 AM TOBACCO DRIER OPERATOR documented as of this encounter Plan of Treatment Upcoming Encounters Date Type Department Care Team (Late st Contact Info) Description 04/03/2025 8:40 AM CDT Office Visit [facility] Medical Group Family & Internal Medicine [address] [address] Nestor Fletcher MD [address] [place] [address] 08/26/2025 9:00 AM TOBACCO DRIER OPERATOR Office Visit [facility] - [facility] [address] [place] [phone] Francisco Levi DO [address] [place] [address] documented as of this encounter Visit Diagnoses [...] Rule Out 07/06/2020 07/06/2020 07/08/2020 11:00 PM TOBACCO DRIER OPERATOR COVID-19 Rule Out 07/09/2020 07/09/2020 07/12/2020 10:16 AM TOBACCO DRIER OPERATOR COVID-19 Rule Out 11/14/2020 11/14/2020 11/15/2020 10:25 AM CDT COVID-19 Rule Out 01/05/2021 01/05/2021 01/05/2021 5:26 PM CDT COVID-19 Rule Out 12/02/2021 12/02/2021 12/02/2021 4:28 PM CDT COVID-19 Rule Out 05/20/2023 05/20/202305/2005/20/2023 6:44 PM CDT COVID-19 Rule Out 09/11/2023 09/11/2023 09/11/2023 10:29 AM TOBACCO DRIER OPERATOR COVID-19 Rule Out 03/18/2024 03/18/2024 03/18/2024 8:30 PM CDT COVID-19 Rule Out 05/27/2024 05/27/2024 05/27/2024 7:16 PM CDT documented as of this encounter Care Teams Insurance Rater Relationship Specialty Start Date End Date Tutu Hill MD [address] [facility] [address] [place] [phone] PCP - General FAMILY PRACTICE 08/09/18 03/19/20 Ary Rubalcava NP [address] [facility] [address] [place] [address] PCP - General Nurse Practitioner Family 03/20/2003/05 None, MD Santana PCP - General 03/25/20 05/14/20 [place] [address] [place] [address] PCP - General FAMILY PRACTICE 05/15/20 documented as of this encounter
--- OUTSIDE RECORDS SUMMARY | 2025-03-30 10:04 | XMS_ITS | Encounter Summary ---
Author Organization [facility] Address [address] [place] [address] Care Team Providers Care Manager Home Name Role Phone Nestor Fletcher MD Primary Care Provider [phone] Encounter Details Date Type Department Care Team (Late st Contact Info) Description 02/22/2022 Bench Message Enc [facility] Medical Group Family & Internal Medicine [address] [address] Nestor Fletcher MD [address] [place] [address] Tomorrows appointment Social History Tobacco Use Types Packs/Day Years [...] Sex Assigned at Female 10/30/2019 8:35 AM PROTECTION SPECIALIST Legal Sex Female 10:55 PM CDT Gender Identity Female 10/30/2019 8:35 AM PROTECTION SPECIALIST Sexual Orientation Straight 10/30/2019 8: 35 AM PROTECTION SPECIALIST COVID-19 Exposure Response Date Recorded In the last 10 days, have yo u been in contact with someone who was confirmed or suspected to have Coronavirus/COVID-19? No / Unsure 02/25/2022 9:31 AM CDT documented as of this encounter [...] of Assessment Author Status No Risk Indicated 02/23/2022 1:35 PM CDT Vanessa Patton RN Active * Rush Suicide Severity Rating Scale (Screener/Recent Self-Report) Question Answer Date of Assessment Author Status 1. Wish to be (Past 1 Month) No 02/23/2022 1:35 PM CDT Dea Patton RN Ac tive 2. Non-Specific Active Suicidal Thoughts (Past 1 Month) No 02/23/2022 1:35 PM CDT Dea Patton RN Ac tive 6. Suicidal Behavior (Lifetime) No 02/23/2022 1:35 PM CDT Dea Patton RN Ac tive documented as of this encounter Mental Status [...] Description 04/03/2025 8:40 AM CDT Office Visit [facility] Family & Internal Medicine [facility] [address] [place] [address] [place] [address] [place] [address] 08/26/2025 9:00 AM PROTECTION SPECIALIST Office Visit [facility] Multispecialty Care - [facility] [address] [facility] [address] [facility] [address] [place] [address] Francisco Levi DO [address] [facility] [address] [place] [address] documented as of this encounter Visit Diagnoses Not on filedocumented in this encounter Additional Health Concerns Infection Onset Date Last Indicated Resolved Time COVID-19 Rule Out 05/20/2023 05/20/2023 05/20/2023 6:44 PM CDT COVID-19 Rule Out 09/11/2023 09/11/2023 09/11/2023 10:29 AM PROTECTION SPECIALIST COVID-19 Rule Out 03/18/2024 03/18/2024 03/18/2024 8:30 PM CDT COVID-19 Rule Out 05/27/2024 05/27/2024 05/27/2024 7:16 PM CDT Assessment Noted Time PHQ-9 Depression Total Score: 0 08/24/20 21 2:19 PM PROTECTION SPECIALIST documented as of this encounter Care Teams Manager Home Relationship Specialty [place] [address] [place] [address] PCP - General FAMILY PRACTICE 05/15/20 documented as of this encounter
--- OUTSIDE RECORDS SUMMARY | 2025-03-30 10:04 | XMS_ITS | Encounter Summary ---
Author Organization [facility] Address [address] [place] [address] Care Team Providers Care Technician Anatomic Pathology Name Role Phone Nestor Fletcher MD Primary Care Provider [phone] Encounter Details Date Type Department Care Team (Late st Contact Info) Description 06/14/2022 [employer] Message Enc [facility] Medical Group Multispecialty Care - [facility] [address] [facility], [address] [place] [phone] Eusebio Ron MD 3 [place] [address] Post surgery Social History Tobacco Use Types Packs/Day Years Used Date Smoking Tobacco: Former Cigarettes 1 30.7 1 991 - 05/15/2021 Smokeless Tobacco: [...] Sex Assigned at Female 10/30/2019 8:35 AM TREASURY SPECIALIST Legal Sex Female 10:55 PM CDT Gender Identity Female 10/30/2019 8:35 AM TREASURY SPECIALIST Sexual Orientation Straight 10/30/2019 8: 35 AM TREASURY SPECIALIST COVID-19 Exposure Response Date Recorded In the last 10 days, have yo u been in contact with someone who was confirmed or suspected to have Coronavirus/COVID-19? No / Unsure 06/15/2022 9:34 AM CDT documented as of this encounter [...] documented in this encounter Progress Notes * Vianney Segundo MA - 06/14/2022 12:05 PM CDT Patient concerned she is having swelling at surgical site causing difficulty breathing and pain. Patient states she is able to breath and advised patient is she starts having difficulty breathing to go to ER but feels a pressure in neck that makes her work harder to breath. Patient denies fever butstates she is having numbness down arm but she had numbness down arm prior to surgery as well. Please advise. Thank you. documented in this encounter Plan of Treatment Upcoming Encounters Date Type Department Care Team (Late st Contact Info) Description 04/03/2025 8:40 AM CDT Office Visit [facility] Family & Internal Medicine [facility] [address] [place] [phone] [place] [address] [place] [address] 08/26/2025 9:00 AM TREASURY SPECIALIST Office Visit [facility] Multispecialty Care - [facility] [address] [facility] [address] [place] [address] Francisco Levi DO [address] [facility] [address] [place] [address] documented as of this encounter Goals Goal [...] Rule Out 09/11/2023 09/11/2023 09/11/2023 10:29 AM TREASURY SPECIALIST COVID-19 Rule Out 03/18/2024 03/18/2024 03/18/2024 8:30 PM CDT COVID-19 Rule Out 05/27/2024 05/27/2024 05/27/2024 7:16 PM CDT Assessment Noted Time PHQ-9 Depression Total Score: 0 02/26/20 9:40 AM CDT documented as of this encounter Care Teams Technician Anatomic Pathology Relationship Specialty [place] [address] [place] [address] PCP - General FAMILY PRACTICE 05/15/20 documented as of this encounter
--- OUTSIDE RECORDS SUMMARY | 2025-03-30 10:04 | XMS_ITS | Encounter Summary ---
Author Organization [facility] Address [address] [place] [address] Care Team Providers Care Pension Agent Name Role Phone Nestor Fletcher MD Primary Care Provider [phone] Encounter Details Date Type Department Care Team (Late st Contact Info) Description 03/01/2022 [employer] Message Enc [facility] Medical Group Foot & Ankle Specialists [facility] [address] [place] [address] Carlos A Ocasio, DPBrinda [address] [place] [address] Surgery Social History Tobacco Use Types [...] Sex Assigned at Female 10/30/2019 8:35 AM MARINATOR Legal Sex Female 10:55 PM CDT Gender Identity Female 10/30/2019 8:35 AM MARINATOR Sexual Orientation Straight 10/30/2019 8: 35 AM MARINATOR COVID-19 Exposure Response Date Recorded In the [...] Office Visit [facility] Medical Group Family & Internal Medicine - [place] [address] [place] [address] [place] Fletcher [place] [address] [place] [address] 08/26/2025 9:00 AM MARINATOR Office Visit [facility] Medical Group Multispecialty Care - [address] [place] [address] Francisco Levi, DO [address] [place] [address] documented as of this encounter Visit Diagnoses Not on filedocumented in this encounter Additional Health Concerns Infection Onset Date Last Indicated Resolved Time COVID-19 Rule Out 05/20/2023 05/20/2023 05/20/2023 6:44 PM CDT COVID-19 Rule Out 09/11/2023 09/11/2023 09/11/2023 10:29 AM MARINATOR COVID-19 Rule Out 03/18/2024 03/18/2024 03/18/2024 8:30 PM CDT COVID-19 Rule Out 05/27/2024 05/27/2024 05/27/2024 7:16 PM CDT Assessment Noted Time PHQ-9 Depression Total Score: 0 02/26/20 22 9:40 AM CDT documented as of this encounter Care Teams Pension Agent Relationship Specialty [place] [address] [place] [address] PCP - General FAMILY PRACTICE 05/15/20 documented as of this encounter
--- OUTSIDE RECORDS SUMMARY | 2025-03-30 10:04 | XMS_ITS | Encounter Summary ---
Author Organization [facility] Address [address] [place] [address] Care Team Providers Care Gifted Teacher Name Role Phone Nestor Fletcher MD Primary Care Provider [phone] Encounter Details Date Type Department Care Team (Late st Contact Info) Description 02/22/2022 [employer] Message Enc [facility] Medical Group Foot & Ankle Specialists [facility] [address] [place] [address] Carlos A Ocasio, DPBrinda [address] [place] [address] Surgery Social History Tobacco Use Types [...] Sex Assigned at Female 10/30/2019 8:35 AM STRAIGHT CUTTER MACHINE Legal Sex Female 10:55 PM CDT Gender Identity Female 10/30/2019 8:35 AM STRAIGHT CUTTER MACHINE Sexual Orientation Straight 10/30/2019 8: 35 AM STRAIGHT CUTTER MACHINE COVID-19 Exposure Response Date Recorded In the [...] PM CDT Vanessa Patton RN Active * Burt Suicide Severity Rating Scale (Screener/Recent Self-Report) Question [...] Description 04/03/2025 8:40 AM CDT Office Visit [facility] Family & Internal Medicine [facility] [address] [place] [address] [place] [address] [place] [address] 08/26/2025 9:00 AM STRAIGHT CUTTER MACHINE Office Visit [facility] Multispecialty Care - [facility] [address] [facility] [address] [place] [address] Francisco Levi DO [address] [facility] [address] [place] [address] documented as of this encounter Visit Diagnoses Not on filedocumented in this encounter Additional Health Concerns Infection Onset Date Last Indicated Resolved Time COVID-19 Rule Out 05/20/2023 05/20/2023 05/20/2023 6:44 PM CDT COVID-19 Rule Out 09/11/2023 09/11/2023 09/11/2023 10:29 AM STRAIGHT CUTTER MACHINE COVID-19 Rule Out 03/18/2024 03/18/2024 03/18/2024 8:30 PM CDT COVID-19 Rule Out 05/27/2024 05/27/2024 05/27/2024 7:16 PM CDT Assessment Noted Time PHQ-9 Depression Total Score: 0 08/24/20 21 2:19 PM STRAIGHT CUTTER MACHINE documented as of this encounter Care Teams Gifted Teacher Relationship Specialty [place] [address] [place] [address] PCP - General FAMILY PRACTICE 05/15/20 documented as of this encounter
--- OUTSIDE RECORDS SUMMARY | 2025-03-30 10:04 | XMS_ITS | Encounter Summary ---
Author Organization [facility] Address [address] [place] [address] Care Team Providers Care Emergency Medical Technician/Driver Name Role Phone Nestor Fletcher MD Primary Care Provider [phone] Encounter Details Date Type Department Care Team (Late st Contact Info) Description 11/28/2024 [employer] Message Enc [facility] Medical Group Family & Internal Medicine [address] [address] Nestor Fletcher MD [address] [place] [address] New upper thigh pain Social History Tobacco Use Types Packs/Day Years [...] Sex Assigned at Female 10/30/2019 8:35 AM CNC OPERATOR Legal Sex Female 10:55 PM CDT Gender Identity Female 10/30/2019 8:35 AM CNC OPERATOR Sexual Orientation Straight 10/30/2019 8: 35 AM CNC OPERATOR documented as of this encounter Functional Status [...] Author Status No 06/06/2022 12:00 PM CDT Goergia Lovell RN Active * Do you have [...] Progress Notes * Marina Archer RN - 11/28/2024 1:54 PM CDT Can someone please add pt to Dr Fletcher's cancellation list? Thank you! documented in this encounter Plan of Treatment Upcoming Encounters Date Type Department Care Team (Late st Contact Info) Description 04/03/2025 8:40 AM CDT Office Visit [facility] Medical Group Family & Internal Medicine [facility] [address] [place] [address] [place] Fletcher [place] [id number] [place] [address] 08/26/2025 9:00 AM CNC OPERATOR Office Visit [facility] Medical Group Multispecialty Care - [facility] [address] [facility] [address] [place] [address] Levi FranciscoDO [address] [facility] [address] [place] [address] documented as of this encounter Goals Goal Patient Goal Type Associated Problems Recent Progress Patient-Stated? Author Health - patient able to perform ADLs independently Lifestyle No Vega john er, Kareem Camacho, RN documented as of this encounter Visit Diagnoses Not on filedocumented in this encounter Additional Health Concerns Assessment Noted Time PHQ-9 Depression Total Score: 13 025 11:16 AM CNC OPERATOR documented as of this encounter Care Teams Emergency Medical Technician/Driver Relationship Specialty [place] [address] [place] [address] PCP - General FAMILY PRACTICE 05/15/20 documented as of this encounter
--- OUTSIDE RECORDS SUMMARY | 2025-03-30 10:04 | XMS_ITS | Clinical Summary ---
Author Organization [facility] Address [address] [place] [address] Care Team Providers Care Pedal Assembler Name Role Phone Benny Fletcher MD Primary Care Provider [phone] Allergies Active Allergy Reactions Criticality Noted Date Comments Amoxicillin Other (see comment) Low 06/03/2014 vaginal yeast infection Ketorolac Hives,Diarrhea,Rash, Naus ea and Vomiting Low 09/22/2005 Oxycodone Itching Low 02/28/2020 Medications Respiratory Therapy Supplies (NEBULIZER) DeviceIndications :Moderate persistent asthma, unspecified whether complicated (HHS/HCC) 1 Units by Does not apply route 4 (four) times daily as needed. Nebulizer machine with tubing. 1 Device 019 Active NARCAN 4 MG/0.1ML nasal spray 1 spray by Nasal route as needed. Active multi vitamin/minerals tablet Take 1 tablet by mouth daily. Active albuterol (2.5 MG/3ML) 0.083% nebulizer solutionIndicatio ns:Mild persistent asthma, uncomplicated (HHS/HCC) Take 3 mLs (2.5 mg total) by nebulization every 4 (four) hours as needed for Wheezing. 360 mL 022 Active Spacer/Aero-Holdi ng Chambers (COMPACT SPACE CHAMBER) Device Active albuterol sulfate HFA 108 (90 Base) MCG/ACT inhalerIndication s:Chronic cough Inhale 2 puffs into the lungs every 4 (four) hours as needed for Wheezing. Use with spacer. 18 g 022 Active NEBULIZER/TUBING/ MOUTHPIECE KIT, DME,Indications:M oderate persistent asthma, unspecified whether complicated (HHS/HCC) Needs new tubing for nebulizer 1 kit 022 Active hydrALAZINE (APRESOLINE) 25 MG tablet Take 1 tablet (25 mg total) by mouth 3 (three) times daily as needed (BP greater than 160 systolic). 270 tablet 1 023 Active calcium carb-cholecalcife rol (CALTRATE+D) 600-10 MG-MCG Tab tablet 1 tablet daily. Acti ve amLODIPine (NORVASC) 5 MG tablet Take 1 tablet (5 mg total) by mouth 2 (two) times daily. 180 tablet 3 024 Active Vitamin D3 (VITAMIN D) 50 mcg tablet Take 1 tablet (50 mcg total) by mouth daily. Active sucralfate (CARAFATE) 1 G tabletIndications :Gastro-esophagea l reflux disease without esophagitis take 1 tablet by mouth 4 times daily as needed 120 tablet 5 024 Active pantoprazole EC (PROTONIX) 40 MG tabletIndications :Gastroesophageal reflux disease, unspecified whether esophagitis present Take 1 tablet (40 mg total) by mouth daily. 90 tablet 1 024 Active BREO ELLIPTA 200-25 MCG/ACT inhalerIndication s:Moderate persistent asthma without complication (HHS/HCC) Inhale 1 puff by mouth once daily 180 each 025 Active levothyroxine (SYNTHROID) 200 MCG tabletIndications :Hypothyroidism TAKE 1 TABLET BY MOUTH IN THE MORNING 90 tablet 025 Active gabapentin (NEURONTIN) 100 MG capsuleIndication s:Lumbar disc disease,Cervical radiculopathy Take 1 capsule (100 mg total) by mouth 3 (three) times daily. 270 capsule 025 Active tiZANidine (ZANAFLEX) 4 MG tabletIndications :Cervical disc disease Take 1 tablet (4 mg total) by mouth every 8 (eight) hours as needed. 90 tablet 025 Active predniSONE (DELTASONE) 20 MG tabletIndications :Acute non-recurrent frontal sinusitis Take two tablets once a day for five days 10 tablet 025 Active triamcinolone (KENALOG) 0.1 % creamIndications: Insect bite Apply topically 2 (two) times daily. 45 g 025 Active traZODone (DESYREL) 50 MG tabletIndications :Insomnia TAKE 1 TABLET BY MOUTH NIGHTLY AT BEDTIME 90 tablet 025 Active cetirizine (ZYRTEC) 10 MG tabletIndications :Allergy, initial encounter Take 1 tablet (10 mg total) by mouth daily. 30 tablet 025 Active hydrocortisone (CORTIZONE) 0.5 % creamIndications: Dermatitis Apply topically 2 (two) times daily. 35 g 025 Active FLUoxetine (PROZAC) 40 MG capsuleIndication s:Mood disorder in conditions classified elsewhere,Anxiety Take 1 capsule by mouth once daily 90 capsule 025 Active HYDROcodone-aceta minophen (NORCO) 10-325 MG tabletIndications :Chronic Pain Indications: Chronic Pain Take 1 tablet by mouth up to five times daily as needed. MUST LAST 28 FULL DAYS 140 tablet 025 Active LORazepam (ATIVAN) 1 MG tabletIndications :Anxiety Take 1 tablet (1 mg total) by mouth every 8 (eight) hours as needed. FOR ANXIETY 20 tablet 025 Active ondansetron (ZOFRAN-ODT) 4 MG disintegrating tabletIndications :Nausea with vomiting DISSOLVE 1 TABLET IN MOUTH EVERY 6 HOURS NEEDED FOR NAUSEA AND FOR VOMITING 20 tablet 025 Active HYDROcodone-aceta minophen (NORCO) 10-325 MG tabletIndications :Chronic Pain Indications: Chronic Pain Take 1 tablet by mouth up to five times daily as needed. MUST LAST 28 FULL DAYS 140 tablet 025 2024 Discontinued(R eorder) LORazepam (ATIVAN) 1 MG tabletIndications :Anxiety TAKE 1 TABLET BY MOUTH EVERY 8 HOURS NEEDED FOR ANXIETY 20 tablet 025 2024 Discontinued(R eorder) ondansetron (ZOFRAN-ODT) 4 MG disintegrating tabletIndications :Nausea with vomiting DISSOLVE 1 TABLET IN MOUTH EVERY 6 HOURS NEEDED FOR NAUSEA AND FOR VOMITING 20 tablet 025 2024 Discontinued Active Problems Problem Noted Date Diagnosed Date Esophageal pain 05/30/2024 Dyspepsia 05/30/2024 Gastroesophageal reflux dise ase, unspecified whether esophagitis present 05/30/2024 Low back pain 01/31/2024 Gastro-esophageal reflux disease without esophag itis 01/11/2023 Plantar flexed metatarsal bone of right foot Overview (12/15/2022): Added automatically from request for surgery [id number] Myofascial pain 11/09/2022 Dysphagia, unspecified type 06/15/2022 Neck pain 06/15/2022 History of odynophagia 06/15/2022 Cervical spine instability 06/06/2022 S/P cervical spinal fusion 06/06/2022 Spinal stenosis of cervical region 01/21/2022 Ulnar neuropathy of both upper extremities 01/21 Impingement syndrome of left shoulder 12/20/2021 Assessment & Plan (12/20/2021 1:35 PM CDT): We discussed the risks, benefits and alternatives. Begin formal physical therapy. Follow-up in 6 weeks. If no significant improvement consider MRI Primary osteoarthritis of left knee 12/20/2021 Assessment & Plan (12/20/2021 1:37 PM CDT): We discussed the risks, benefits and alternatives. The only thing proven to slow the progression of osteoarthritis is weight loss. Every pound lost relieves 4 to 6 pounds of stress across the knee. We discussed unloading braces. Formal physical therapy to help with flexibility, mobility and strength. We discussed TENS units. Nonsteroidal anti-inflammatories as well as Tylenol and pain medication and their side effects. We discussed steroid versus Visco supplement injection. We discussed eventual total knee arthroplasty. Arthritis mostly at the patellofemoral. No significant bracing is available. Begin formal physical therapy. Consider injection if no improvement. Continue Celebrex. Could potentially increase that to 200 mg twice daily. History of fusion of cervical spine 12/20/2021 Cervical radiculopathy 11/19/2021 Bilateral numbness and tingling of arms and legs 11/19/2021 Bloating 03/24/2021 Overview (12/16/2021): Last Assessment & Plan: Recommended further discussion with her GI. Positive RICHAR (antinuclear antibody) 03/11/2021 Overview (12/16/2021): 03/11/21: UA neg, CK 81, CRP 1.49 mg/dL, ESR 14, Anti-Juan Miguel neg, Actin neg AVISE 03/11/21: all negative 45 yoF presents with a recent pos richar 1:80 in an reticular/AMA pattern. She notes [...] to notify with any worsened gerd symptoms. Last Assessment & Plan: 45 yoF presented with a pos richar 1:80 in an reticular/AMA pattern. She noted [...] new symptoms arise. Seen with Dr. Hess. BMI 36.0-36.9,adult 08/20/2020 Assessment & Plan (12/20/2021 1:37 PM CDT): We discussed the adverse effects of weight on osteoarthritis of the knee. For every 1 pound loss, 4 to 6 pounds of stress is relieved from the knee. We discussed low carbohydrate diet to help with weight loss. 80% of weight loss is through diet. Hiatal hernia 05/18/2020 Esophageal polyp 05/18/2020 Internal and external hemorrhoids without compli cation 05/18/2020 Tension headache 05/18/2020 Odynophagia 05/04/2020 Overview (05/04/2020): Added automatically from request for surgery [id number] Rectal bleeding 05/04/2020 Overview (05/04/2020): Added automatically from request for surgery [id number] Chest pain 03/31/2020 Degenerative disc disease at L5-S1 level 020 Asthma (HHS/HCC) 03/31/2020 Gastritis determined by endoscopy 03/16/2020 Dyslipidemia 03/13/2020 SOB (shortness of breath) 03/13/[address] of the abdomen 03/12/2020 Overview (03/12/2020): Added automatically from request for surgery [id number] Foraminal stenosis of cervical region 06/06/2019 Essential hypertension 08/10/2018 Lumbar disc disease 08/10/2018 Mild persistent asthma, uncomplicated (HHS/HCC) 11/23/2017 Fibroadenosis of breast 09/04/2016 Overview (11/09/2018): Fibroadenosis of breast Ganglion of hand, left 07/24/2014 Other cervical disc degenera tion, unspecified cervical region 07/24/2012 Overview (08/10/2018): s/p spinal fusion. Assessment & Plan (12/20/2021 1:35 PM CDT): Plate fixation noted on x-ray. Could be a component of radicular symptoms. If nothing shows up in the shoulder may need to consider further evaluation to the cervical spine Postoperative hypothyroidism 07/24/2012 Overview (08/10/2018): s/p surgery for thyroid cancer Mood disorder in conditions classified elsewhere 07/24/2012 H/O total thyroidectomy 07/17/2008 Thyroid cancer ([facility]) Overview (11/09/2018): s/p thyroidectomy Anxiety Encounters Date Type Department Care Team Description 03/18/2025 MyChart Message Enc [facility] [address] [address] Benny Fletcher MD Heart palpations 02/12/2025 Scan MG 800APP SRVCS Scanned, [facility] 02/05/2025 MyChart Message Enc [facility] [address] [address] Benny Fletcher MD Feet 02/04/2025 8:00 AM CDT Office Visit [facility] [address] [address] Benny Fletcher MD Sinus Problem (Sx stared over a week ago ); Ear Problem; Cough 02/04/2025 Travel 01/21/2025 Scan MG Virtual 3-D Display for Smartphones INFO SRVCS Scanned, [facility] EMG (SCAN) 01/14/2025 MyChart Message Enc [facility] [address] [phone] Benny Fletcher MD Spider bites 01/09/2025 4:20 PM CDT Office Visit [facility] [address] [place] [address] Benny Fletcher MD Headache (Sx started about 3 weeks ago ); Sinusitis (Pt c/o sx started about 2 weeks ago ); Earache (Left ear pain ) 01/09/2025 Travel 01/03/2025 Results Follow-Up [facility] [address] [place] [address] Benny Fletcher MD MG SCREENING W MAURICIO MAXI DIGI 01/02/2025 12:39 PM CDT - 01/02/2025 11:59 PM CDT Hospital Encounter [facility] [address] [place], [place] [phone] Benny Fletcher MD Discharge Disposition: Home or Self Care (Routine Discharge) 01/02/2025 Travel from Last 3 Months Immunizations Immunization Administration Dates Next Due Fluzone 6 Months+ Quad (0.5 mL Prefilled Syringe) 07/14/2023,07/14/2022,07/05/2021,2019 MODERNA COVID-19 (12+) MRNA, LNP-S, PF, 100 MCG/ 0.5 ML DOSE 12/24/2020,11/26/2020 Tdap (Generic) 02/21/2017 Family History Medical History Relation Comments Cancer Brother brother with petey kemia Hypertension Brother x 4 brothers Hypertension Father Hypertension Mother Heart Paternal Grandfather Alzheimers Paternal Grandmother Diabetes Paternal Uncle Breast Cancer Neg Hx Relation Status Comments Brother Alive Daughter Alive Father Alive Mother Alive Paternal Grandfather Paternal Grandmother Paternal Uncle Son Alive Social History Tobacco Use Types Packs/Day Years Used Date Smoking Tobacco: Former Cigarettes 1 30.7 1 991 - 05/15/2021 Passive Smoke Exposure: Past Smokeless Tobacco: Never Tobacco Cessation:Counseling Given: No Comments:pt has quit smoking Alcohol Use Standard [...] Sex Assigned at Female 10/30/2019 8:35 AM COMPUTER FORWARDING SYSTEM MARKUP CLERK Legal Sex Female 10:55 PM CDT Gender Identity Female 10/30/2019 8:35 AM COMPUTER FORWARDING SYSTEM MARKUP CLERK Sexual Orientation Straight 10/30/2019 8: 35 AM COMPUTER FORWARDING SYSTEM MARKUP CLERK Last Filed Vital Signs Vital Sign Reading Time Taken Comments Blood Pressure 159/75 02/04/2025 7:45 AM CDT Pulse 86 02/04/2025 7:45 AM CDT Temperature 36.2 C (97.2 F) 02/04/2025 7:45 AM CDT Respiratory Rate 18 02/04/2025 7:45 AM CDT Oxygen Saturation 100% 02/04/2025 7:45 AM CDT Inhaled Oxygen Concentration - - Weight 114.3 kg (252 lb) 02/04/2025 7:45 AM CDT Height 165.1 cm (5' 5) 02/04/2025 7:45 AM CDT Body Mass Index 41.93 02/04/2025 7:45 AM CDT Plan of Treatment Upcoming Encounters Date Type Department Care Team (Late st Contact Info) Description 04/03/2025 8:40 AM CDT Office Visit [facility] - [place] [phone] [place] [phone] Benny Fletcher MD [address] [place] [phone] 08/26/2025 9:00 AM COMPUTER FORWARDING SYSTEM MARKUP CLERK Office Visit [facility] [address] [facility] [place] [address] Francisco Levi DO [address] [place] [address] [address] [place] [address] Health Maintenance Due Date Last Done Comments Annual Physical 12/22/1979 Hepatitis C 1994 Hepatitis B Vaccines (1 of 3 - 19+ 3-dose series) 12/22/1995 Pneumococcal Vaccine: Pediatrics (0 to 5 Years) and At-Risk Patients (6 to 49 Years) (1 of 2 - PCV) 12/22/1995 Cervical Cancer Screening Pa p with HPV Testing (Age 30 to 64) Every 5 Years 2006 Cervical Cancer Screening Pa p Smear (Age 30 to 64) Every 3 Years 07/01/2020 07/01/2015, 07/26/2006 Cervical Cancer Screening wi th HPV 07/01/2020 COVID-19 Vaccine (2023-2 5 season) 2024 12/24/2020, 11/26/2020 Mammogram Screening 01/02/2027 01/02/2025 DTaP, Tdap and Td Vaccines ( 2 - Td or Tdap) 02/21/2027 02/21/2017 Colorectal Cancer Screening Colonoscopy (10 Years) 05/18/2030 05/18/2020 PHQ-2 (Physician [place]) Completed 09/25/2024 Meningococcal B Vaccine Aged Out No l onger eligible based on patient's age to complete this topic Meningococcal Vaccine Aged Out No oleksandr mata eligible based on patient's age to complete this topic RSV Immunizations Under 20 Months Aged Out No longer eligible b ased on patient's age to complete this topic Goals Goal Patient Goal Type Associated Problems Recent Progress Patient-Stated? Author Health - patient able to perform ADLs independently Lifestyle No Kareem Freeman i, RN Medical Devices Implanted Type Area Travel Ot Device Identifier Shelf Expiration Date Model / Serial / Lot Cage Cage Neck Cage Cage Back [place] Interbody System Cervical Implanted:Qty : 1 on 06/06/2022 by Eusebio Ron MD at [facility] Cage N/A: Spine Cervical [employer] [id number] 09/14/2026 [id number] / / [id number] 22mm Plate Implanted:Qty : 1 on 06/06/2022 by Eusebio Ron MD at [facility] Plate N/A: Spine Cervical [employer] [id number] / / 4.0 X 16mm Screws Implanted:Qty : 4 on 06/06/2022 by Eusebio Ron MD at [facility] Screw N/A: Spine Cervical [employer] [id number] / / [id number] Viable Bone Matrix -Spine Implanted:Qty : 1 on 06/06/2022 by Eusebio Ron MD at [facility] Tissue N/A: Spine Cervical [employer] 06/30/2024 [id number] / [id number] / Description:Lot no: [id number] Unit no: [id number] Part no: [id number] Explanted Type Area Travel Ot Device Identifier Shelf Expiration Date Model / Serial / Lot Distration Pin 12mm - [id number] Explanted:Qty: 1 on 06/06/2022 by Eusebio Ron MD at [facility] Pin [employer]ICAL [employer] [id number] / / Procedures Procedure Name Priority Date/Time Associated Diagnosis Comments EMG GENERIC (SCAN ORDER) 01/21/2025 MG SCREENING W MAURICIO MAXI DIGI Routine 01/02/2025 1:53 PM CDT Screening mammogram, encounter for OUTSIDE CYTOPATH CERV/VAG INTERPRET (PAP) (SCAN ORDER) Routine 07/01/2015 12:00 AM CDT from Last 3 Months or Most Recently Relevant to Health Maintenance Results * EMG GENERIC (SCAN ORDER) (01/21/2025) 01/21/2025 us [facility] Scanned SCANNING Final Resu lt * MG SCREENING W MAURICIO MAXI DIGI (01/02/2025 1:53 PM CDT) Anatomical Region Laterality Modality Breast Bilateral Mammography 01/02/2025 2:47 PM CDT Impressions 01/02/2025 2:48 PM CDT =====IMPRESSION:===== No mammographic findings suggestive of malignancy ASSESSMENT: ACR BI-RADS 2 - BENIGN FINDING(S) Recommendation: 1: Routine Screening Bilateral COMMENTS: Ordered By: BENNY FLETCHER Interpreted By: Johnny Hussein MD, 01/02/2025 2:47 PM Narrative 01/02/2025 2:48 PM CDT [facility] [address] [place] [address] EXAMINATION: Digital bilateral screening mammogram with 3-D tomosynthesis EXAM DATE/TIME: 01/02/2025 12:58 PM REASON FOR EXAM: Breast Cancer Screening COMPARISON: Priors including right breast mammograms, January 2016, July 2015, February 2010. Bilateral mammogram September 2009 TECHNIQUE: Digital screening mammography of both breasts was performed in addition to 3-D Tomosynthesis technique. This study was read with the assistance of a computer-aided detection system. TISSUE DENSITY: There are scattered areas of fibroglandular density. FINDINGS: No suspicious masses, malignant appearing calcifications, skin thickening or other abnormalities are present. No significant change from the prior exam. us Benny Fletcher MD MAMMO Final Resul t * PAP SMEAR (07/01/2015 12:00 AM CDT) 07/01/2015 us Documents Scanned SCANNING Final Result [facility] from Last 3 Months or Most Recently Relevant to Health Maintenance Insurance [place] Advance Directives * Full Code (Latest Code Status on File) Date Activated Date Inactivated Comments 01/31/2023 8:22 AM 01/31/2023 12:48 PM * Full Code Date Activated Date Inactivated Comments 06/06/2022 11:14 AM 06/07/2022 1:47 PM * Full Code Date Activated Date Inactivated Comments 03/08/2022 1:46 PM 03/08/2022 6:51 PM * Full Code Date Activated Date Inactivated Comments 11/17/2020 8:31 AM 11/18/2020 4:05 PM * Full Code Date Activated Date Inactivated Comments 03/31/2020 1:39 AM 03/31/2020 7:21 PM Care Teams Pedal Assembler Relationship Specialty [place] [address] [place] [address] PCP - General FAMILY PRACTICE 05/15/20
--- OUTSIDE RECORDS SUMMARY | 2025-03-30 10:04 | XMS_ITS | Encounter Summary ---
Author Organization [facility] Address [address] [place] [address] Care Team Providers Care Targeteer Name Role Phone Nestor Fletcher MD Primary Care Provider [phone] Encounter Details Date Type Department Care Team (Late st Contact Info) Description 03/11/2022 BiOWiSH Message Enc [facility] Family & Internal Medicine [facility] [address] [place] [address] Natali Polo APNP [address] [facility] [address] [place] [address] Moiz Social History Tobacco Use Types Packs/Day Years [...] Sex Assigned at Female 10/30/2019 8:35 AM MANAGER ED Legal Sex Female 10:55 PM CDT Gender Identity Female 10/30/2019 8:35 AM MANAGER ED Sexual Orientation Straight 10/30/2019 8: 35 AM MANAGER ED COVID-19 Exposure Response Date Recorded In the [...] documented in this encounter Progress Notes * WILLY Hamilton - 03/11/2022 2:34 PM CDT Im not sure either but we can try pantoprazole. documented in this encounter Plan of Treatment Upcoming Encounters Date Type Department Care Team (Late st Contact Info) Description 04/03/2025 8:40 AM CDT Office Visit [facility] Family & Internal Medicine [address] [address] [place] [address] [place] [address] 08/26/2025 9:00 AM MANAGER ED Office Visit [facility] Multispecialty Care - [facility] [address] [place] [address] Francisco Levi DO [address] [place] [address] documented as of this encounter Visit Diagnoses Not on filedocumented in this encounter Additional Health Concerns Infection Onset Date Last Indicated Resolved Time COVID-19 Rule Out 05/20/2023 05/20/2023 05/20/2023 6:44 PM CDT COVID-19 Rule Out 09/11/2023 09/11/2023 09/11/2023 10:29 AM MANAGER ED COVID-19 Rule Out 03/18/2024 03/18/2024 03/18/2024 8:30 PM CDT COVID-19 Rule Out 05/27/2024 05/27/2024 05/27/2024 7:16 PM CDT Assessment Noted Time PHQ-9 Depression Total Score: 0 02/26/20 22 9:40 AM CDT documented as of this encounter Care Teams Targeteer Relationship Specialty [place] [address] [place] [address] PCP - General FAMILY PRACTICE 05/15/20 documented as of this encounter
--- OUTSIDE RECORDS SUMMARY | 2025-03-30 10:04 | XMS_ITS | Encounter Summary ---
Author Organization [facility] Address [address] [place] [address] Care Team Providers Care It Infrastructure Manager Name Role Phone None, Provider Primary Care Provider Nestor Ma MD Primary Care Provider [phone] Encounter Details Date Type Department Care Team (Late st Contact Info) Description 04/28/2020 [employer] Message Enc [facility] Family [facility] Internal Medicine [facility] [address] [place] [address] Nestor Fletcher MD [address] [place] [address] RE: Medication Questions Social History Tobacco Use Types Packs/Day Years [...] Sex Assigned at Female 10/30/2019 8:35 AM EDITOR FARM JOURNAL Legal Sex Female 10:55 PM CDT Gender Identity Female 10/30/2019 8:35 AM EDITOR FARM JOURNAL Sexual Orientation Straight 10/30/2019 8: 35 AM EDITOR FARM JOURNAL COVID-19 Exposure Response Date Recorded In the [...] Description 04/03/2025 8:40 AM CDT Office Visit [facility] Internal Medicine - [place] [address] [place] [phone] Nestor Fletcher MD [address] [place] [address] 08/26/2025 9:00 AM EDITOR FARM JOURNAL Office Visit [facility] Multispecialty Care - [address] [place] [address] Francisco Levi DO [address] [place] [address] documented as of this encounter Visit Diagnoses Not on filedocumented in this encounter Additional Health Concerns Infection Onset Date Last Indicated Resolved Time COVID-19 Rule Out 05/15/2020 05/15/2020 05/16/2020 8:21 PM CDT COVID-19 Rule Out 05/25/2020 05/25/2020 05/27/2020 12:21 AM CDT COVID-19 Rule Out 06/26/2020 06/26/2020 06/27/2020 4:51 PM CDT COVID-19 Rule Out 07/06/2020 07/06/2020 07/08/2020 11:00 PM EDITOR FARM JOURNAL COVID-19 Rule Out 07/09/2020 07/09/2020 07/12/2020 10:16 AM EDITOR FARM JOURNAL COVID-19 Rule Out 11/14/2020 11/14/2020 11/15/2020 10:25 AM CDT COVID-19 Rule Out 01/05/2021 01/05/2021 01/05/2021 5:26 PM CDT COVID-19 Rule Out 12/02/2021 12/02/2021 12/02/2021 4:28 PM CDT COVID-19 Rule Out 05/20/2023 05/20/2023 05/20/2023 6:44 PM CDT COVID-19 Rule Out 09/11/2023 09/11/2023 09/11/2023 10:29 AM EDITOR FARM JOURNAL COVID-19 Rule Out 03/18/2024 03/18/2024 03/18/2024 8:30 PM CDT COVID-19 Rule Out 05/27/2024 05/27/2024 05/27/2024 7:16 PM CDT documented as of this encounter Care Teams It Infrastructure Manager Relationship Specialty Start Date End Date None, Provider, PCP - General 03/25/20 05/14/20 [place] [address] [place] [id number] PCP - General FAMILY PRACTICE 05/15/20 documented as of this encounter
--- OUTSIDE RECORDS SUMMARY | 2025-03-30 10:04 | XMS_ITS | Encounter Summary ---
Author Organization [facility] Address [address] [place] [address] Care Team Providers Care Cloud Engagement Partner Name Role Phone Nestor Fletcher MD Primary Care Provider [phone] Encounter Details Date Type Department Care Team (Late st Contact Info) Description 06/14/2022 [employer] Multimedia Message Enc [facility] Group Multispecialty Care - [facility] 3 [facility], [address] [place] [phone] Pura Velazquez APRN 3 [facility] [address] [place] [address] Update Social History Tobacco Use Types Packs/Day Years [...] Sex Assigned at Female 10/30/2019 8:35 AM MANUGRAPHER Legal Sex Female 10:55 PM CDT Gender Identity Female 10/30/2019 8:35 AM MANUGRAPHER Sexual Orientation Straight 10/30/2019 8: 35 AM MANUGRAPHER COVID-19 Exposure Response Date Recorded In the [...] Description 04/03/2025 8:40 AM CDT Office Visit [facility] Family & Internal Medicine [facility] [address] [place] [address] [place] [address] [place] [address] 08/26/2025 9:00 AM MANUGRAPHER Office Visit [facility] Multispecialty Care - [facility] [address] [place] [address] Francisco Levi DO [address] [place] [address] documented as of this encounter Goals Goal Patient Goal Type Associated Problems Recent Progress Patient-Stated? Author Health - patient able to perform ADLs independently Lifestyle No Vega john er, Kareem Camacho RN documented as of this encounter Visit Diagnoses Not on filedocumented in this encounter Additional Health Concerns Infection Onset Date Last Indicated Resolved Time COVID-19 Rule Out 05/20/2023 05/20/2023 05/20/2023 6:44 PM CDT COVID-19 Rule Out 09/11/2023 09/11/2023 09/11/2023 10:29 AM MANUGRAPHER COVID-19 Rule Out 03/18/2024 03/18/2024 03/18/2024 8:30 PM CDT COVID-19 Rule Out 05/27/2024 05/27/2024 05/27/2024 7:16 PM CDT Assessment Noted Time PHQ-9 Depression Total Score: 0 02/26/20 22 9:40 AM CDT documented as of this encounter Care Teams Cloud Engagement Partner Relationship Specialty [place] [address] [place] [address] PCP - General FAMILY PRACTICE 05/15/20 documented as of this encounter
--- OUTSIDE RECORDS SUMMARY | 2025-03-30 10:04 | XMS_ITS | Encounter Summary ---
Author Organization [facility] Address [address] [place] [address] Care Team Providers Care Welding Systems And Equipment Repairer Name Role Phone Nestor Fletcher MD Primary Care Provider [phone] Encounter Details Date Type Department Care Team (Late st Contact Info) Description 03/24/2022 [employer] Message Enc [facility] Medical Group Multispecialty Care - [facility] 3 [facility], [address] [place] [phone] Pura Velazquez APRN 3 [facility] [address] [place] [address] Appointments Social History Tobacco Use Types Packs/Day Years [...] Sex Assigned at Female 10/30/2019 8:35 AM BOOTH SUPERVISOR Legal Sex Female 10:55 PM CDT Gender Identity Female 10/30/2019 8:35 AM BOOTH SUPERVISOR Sexual Orientation Straight 10/30/2019 8: 35 AM BOOTH SUPERVISOR COVID-19 Exposure Response Date Recorded In the last 10 days, have marielos vlaladares been in contact with someone who was confirmed or suspected to have Coronavirus/COVID-19? No / Unsure 03/23/2022 2:02 PM CDT documented as of this encounter [...] Office Visit [facility] Medical [facility] Family & Internal Medicine [facility] [address] [place] [address] Nestor Fletcher [place] [id number] [place] [address] 08/26/2025 9:00 AM BOOTH SUPERVISOR Office Visit [facility]ty Care - [facility] [address] [facility] [address] [place] [address] Francisco Levi DO [address] [facility] [address] [place] [address] documented as of this encounter Visit Diagnoses Not on filedocumented in this encounter Additional Health Concerns Infection Onset Date Last Indicated Resolved Time COVID-19 Rule Out 05/20/2023 05/20/2023 05/20/2023 6:44 PM CDT COVID-19 Rule Out 09/11/2023 09/11/2023 09/11/2023 10:29 AM BOOTH SUPERVISOR COVID-19 Rule Out 03/18/2024 03/18/2024 03/18/2024 8:30 PM CDT COVID-19 Rule Out 05/27/2024 05/27/2024 05/27/2024 7:16 PM CDT Assessment Noted Time PHQ-9 Depression Total Score: 0 02/26/20 22 9:40 AM CDT documented as of this encounter Care Teams Welding Systems And Equipment Repairer Relationship Specialty [place] [address] [place] [address] PCP - General FAMILY PRACTICE 05/15/20 documented as of this encounter
--- OUTSIDE RECORDS SUMMARY | 2025-03-30 10:04 | XMS_ITS | Encounter Summary ---
Author Organization [facility] Address [address] [place] [address] Care Team Providers Care Field Operations Coordinator Name Role Phone Nestor Fletcher MD Primary Care Provider [phone] Encounter Details Date Type Department Care Team (Late st Contact Info) Description 06/16/2022 [employer] Message Enc [facility] Medical Group Multispecialty Care - [facility] 3 [facility], [address] [place] [address] Pura Velazquez APRN 3 [facility] [address] [place] [address] Questions Social History Tobacco Use Types Packs/Day [...] Sex Assigned at Female 10/30/2019 8:35 AM CEMENT FINISHER APPRENTICE Legal Sex Female 10:55 PM CDT Gender Identity Female 10/30/2019 8:35 AM CEMENT FINISHER APPRENTICE Sexual Orientation Straight 10/30/2019 8: 35 AM CEMENT FINISHER APPRENTICE COVID-19 Exposure Response Date Recorded In the [...] Progress Notes * Varsha Almonte MA - 06/16/2022 1:12 PM CDT Pura will you answer the question regarding PPI and being a bone marrow doner. documented in this encounter Plan of Treatment Upcoming Encounters Date Type Department Care Team (Late st Contact Info) Description 04/03/2025 8:40 AM CDT Office Visit [facility] Family & Internal Medicine - [place] [address] [place] [address] [place] [address] [place] [address] 08/26/2025 9:00 AM CEMENT FINISHER APPRENTICE Office Visit [facility] Multispecialty Care - [facility] [address] [facility] [address] [place] [address] Francisco Levi DO [address] [facility] [address] [place] [address] documented as of this encounter Goals Goal [...] Rule Out 09/11/2023 09/11/2023 09/11/2023 10:29 AM CEMENT FINISHER APPRENTICE COVID-19 Rule Out 03/18/2024 03/18/2024 03/18/2024 8:30 PM CDT COVID-19 Rule Out 05/27/2024 05/27/2024 05/27/2024 7:16 PM CDT Assessment Noted Time PHQ-9 Depression Total Score: 0 02/26/20 9:40 AM CDT documented as of this encounter Care Teams Field Operations Coordinator Relationship Specialty [place] [address] [place] [address] PCP - General FAMILY PRACTICE 05/15/20 documented as of this encounter
--- OUTSIDE RECORDS SUMMARY | 2025-03-30 10:04 | XMS_ITS | Encounter Summary ---
Author Organization [facility] Address [address] [place] [address] Care Team Providers Care Bellmaker Name Role Phone None, Provider Primary Care Provider Nestor Ma MD Primary Care Provider [phone] Encounter Details Date Type Department Care Team (Late st Contact Info) Description 03/28/2020 [employer] Message [facility] [address] [place] [address] Tutu Hill MD [address] [facility] [address] [place] [address] Other Social History Tobacco Use Types Packs/Day Years [...] Sex Assigned at Female 10/30/2019 8:35 AM OFFICE MESSENGER HELPER Legal Sex Female 10:55 PM CDT Gender Identity Female 10/30/2019 8:35 AM OFFICE MESSENGER HELPER Sexual Orientation Straight 10/30/2019 8: 35 AM OFFICE MESSENGER HELPER COVID-19 Exposure Response Date Recorded In the last month, have you been in contact with someone who was confirmed or suspected to have Coronavirus / COVID-19? No / Unsure 03/30/2020 9:19 PM CDT documented as of this encounter Functional Status documented as of this encounter Mental Status * Question Answer Entry Date Author Status Because of a physical, mental, or emotional condition, do you have serious difficulty concentrating, remembering, or making decisions? No 03/31/2020 2:12 AM CDT Kelly Hayes RN Active documented in this encounter Progress Notes * Katey Mahajan - 03/31/2020 1:07 PM CDT I talked to patient she did find a new doctor in [place]. documented in this encounter Plan of Treatment Upcoming Encounters Date Type Department Care Team (Late st Contact Info) Description 04/03/2025 8:40 AM CDT Office Visit [facility] Family & Internal Medicine - [address] [address] Nestor Fletcher MD [address] [place] [address] 08/26/2025 9:00 AM OFFICE MESSENGER HELPER Office Visit [facility] Multispecialty Care - [address] [place] [address] Francisco Levi DO [address] [place] [address] [place] [address] documented as of this encounter Visit Diagnoses Not on filedocumented in this encounter Additional Health Concerns Infection Onset Date Last Indicated Resolved Time COVID-19 Rule Out 05/15/2020 05/15/2020 05/16/2020 8:21 PM CDT COVID-19 Rule Out 05/25/2020 05/25/2020 05/27/2020 12:21 AM CDT COVID-19 Rule Out 06/26/2020 06/26/202006/27/2020 4:51 PM CDT COVID-19 Rule Out 07/06/2020 07/06/2020 07/08/2020 11:00 PM OFFICE MESSENGER HELPER COVID-19 Rule Out 07/09/2020 07/09/2020 07/12/2020 10:16 AM OFFICE MESSENGER HELPER COVID-19 Rule Out 11/14/2020 11/14/2020 11/15/2020 10:25 AM CDT COVID-19 Rule Out 01/05/2021 01/05/2021 01/05/2021 5:26 PM CDT COVID-19 Rule Out 12/02/2021 12/02/2021 12/02/2021 4:28 PM CDT COVID-19 Rule Out 05/20/2023 05/20/2023 05/20/2023 6:44 PM CDT COVID-19 Rule Out 09/11/2023 09/11/2023 09/11/2023 10:29 AM OFFICE MESSENGER HELPER COVID-19 Rule Out 03/18/2024 03/18/2024 03/18/2024 8:30 PM CDT COVID-19 Rule Out 05/27/2024 05/27/2024 05/27/2024 7:16 PM CDT documented as of this encounter Care Teams Bellmaker Relationship Specialty Start Date End Date None, Provider, PCP - General 03/25/20 05/14/20 [place] [address] [place] [address] PCP - General FAMILY PRACTICE 05/15/20 documented as of this encounter
--- OUTSIDE RECORDS SUMMARY | 2025-03-30 10:04 | XMS_ITS | Encounter Summary ---
Author Organization [facility] Address [address] [place] [address] Care Team Providers Care Pit Hand Name Role Phone Nestor Fletcher MD Primary Care Provider [phone] Encounter Details Date Type Department Care Team (Late st Contact Info) Description 06/08/2022 [employer] Message Enc [facility] Medical Group Multispecialty Care - [facility] 3 [facility], [address] [place] [phone] Eusebio Ron MD 3 [place] [address] After surgery Social History Tobacco Use Types Packs/Day [...] Sex Assigned at Female 10/30/2019 8:35 AM ELECTROMEDICAL EQUIPMENT TECHNICIAN Legal Sex Female 10:55 PM CDT Gender Identity Female 10/30/2019 8:35 AM ELECTROMEDICAL EQUIPMENT TECHNICIAN Sexual Orientation Straight 10/30/2019 8: 35 AM ELECTROMEDICAL EQUIPMENT TECHNICIAN COVID-19 Exposure Response Date Recorded In the last 10 days, have marielos u been in contact with someone who was confirmed or suspected to have Coronavirus/COVID-19? No / Unsure 06/06/2022 5:15 AM CDT documented as of this encounter [...] Progress Notes * Vianney Segundo MA - 06/08/2022 3:44 PM CDT Called and advised patient increased mucus is normal and to gurgle salt water and avoid dairy. Patient denies numbness, tingling, weakness, or fever. Advised to reach out if she starts to experience these symptoms pt VU documented in this encounter Plan of Treatment Upcoming Encounters Date Type Department Care Team (Late st Contact Info) Description 04/03/2025 8:40 AM CDT Office Visit [facility] Family & Internal Medicine [facility] [address] [place] [address] [place] [address] [place], [place] [phone] 08/26/2025 9:00 AM ELECTROMEDICAL EQUIPMENT TECHNICIAN Office Visit [facility] Multispecialty Care - [facility] [address] [facility] [address] [place] [address] Francisco Levi DO [address] [facility] [address] [place] [address] documented as of this encounter Goals Goal [...] Rule Out 09/11/2023 09/11/2023 09/11/2023 10:29 AM ELECTROMEDICAL EQUIPMENT TECHNICIAN COVID-19 Rule Out 03/18/2024 03/18/2024 03/18/2024 8:30 PM CDT COVID-19 Rule Out 05/27/2024 05/27/2024 05/27/2024 7:16 PM CDT Assessment Noted Time PHQ-9 Depression Total Score: 0 02/26/20 9:40 AM CDT documented as of this encounter Care Teams Pit Hand Relationship Specialty [place] [address] [place] [address] PCP - General FAMILY PRACTICE 05/15/20 documented as of this encounter
--- OUTSIDE RECORDS SUMMARY | 2025-03-30 10:04 | XMS_ITS | Encounter Summary ---
Author Organization [facility] Address [facility] [place] [address] Care Team Providers Care Green Hide Inspector Name Role Phone Tutu Hill MD Primary Care Provider + BarryAry NP Primary Care Provider + None, Provider Primary Care Provider Nestor Ma MD Primary Care Provider [phone] Encounter Details Date Type Department Care Team (Late st Contact Info) Description 02/14/2010 Abstract [facility] Conversion , Generic ConversionMD Social History Tobacco Use Types Packs/Day Years Used Date Smoking Tobacco: Never Assessed Comments Unknown Sex and Gender Information Value Date Recorded Sex Assigned at Female 10/30/2019 8:35 AM SUPERVISOR VENDOR QUALITY Legal Sex Female 10:55 PM CDT Gender Identity Female 10/30/2019 8:35 AM SUPERVISOR VENDOR QUALITY Sexual Orientation Straight 10/30/2019 8: 35 AM SUPERVISOR VENDOR QUALITY documented as of this encounter Plan of Treatment Upcoming Encounters Date Type Department Care Team (Late st Contact Info) Description 04/03/2025 8:40 AM CDT Office Visit [facility] Medical Group Family & Internal Medicine [address] [address] Nestor Fletcher MD [address] [place] [address] 08/26/2025 9:00 AM SUPERVISOR VENDOR QUALITY Office Visit [facility] Mult[facility]pecialty Care - [facility] [address] [facility] [place] [phone] Francisco Levi DO [address] [place] [address] documented as of this encounter Visit Diagnoses [...] Rule Out 07/06/2020 07/06/2020 07/08/2020 11:00 PM SUPERVISOR VENDOR QUALITY COVID-19 Rule Out 07/09/2020 07/09/2020 07/12/2020 10:16 AM SUPERVISOR VENDOR QUALITY COVID-19 Rule Out 11/14/2020 11/14/2020 11/15/2020 10:25 AM CDT COVID-19 Rule Out 01/05/2021 01/05/2021 01/05/2021 5:26 PM CDT COVID-19 Rule Out 12/02/2021 12/02/2021 12/02/2021 4:28 PM CDT COVID-19 Rule Out 05/20/2023 05/20/2023 05/20/2023 6:44 PM CDT COVID-19 Rule Out 09/11/2023 09/11/2023 09/11/2023 10:29 AM SUPERVISOR VENDOR QUALITY COVID-19 Rule Out 03/18/2024 03/18/2024 03/18/2024 8:30 PM CDT COVID-19 Rule Out 05/27/2024 05/27/2024 05/27/2024 7:16 PM CDT documented as of this encounter Care Teams Green Hide Inspector Relationship Specialty Start Date End Date Tutu Hill MD [address] [facility] [address] [place] [phone] PCP - General FAMILY PRACTICE 08/09/18 03/19/20 Ary Rubalcava NP [address] [facility] [address] [place] [address] PCP - General Nurse Practitioner Family 03/20/20 709/23 None, MD Santana PCP - General 03/25/20 05/14/20 [place] [address] [facility] [place] [address] PCP - General FAMILY PRACTICE 05/15/20 documented as of this encounter
--- OUTSIDE RECORDS SUMMARY | 2025-03-30 10:04 | XMS_ITS | Encounter Summary ---
Author Organization [facility] Address [address] [place] [address] Care Team Providers Care Rooms Director Name Role Phone Nestor Fletcher MD Primary Care Provider [phone] Encounter Details Date Type Department Care Team (Late st Contact Info) Description 06/22/2022 [employer] Message Enc [facility] Medical Group Multispecialty Care - [facility] 3 [facility], [address] [place] [phone] Pura Velazquez APRN 3 [facility] [address] [place] [address] Cancelled appt Social History Tobacco Use Types Packs/Day Years [...] Sex Assigned at Female 10/30/2019 8:35 AM COIL BINDER Legal Sex Female 10:55 PM CDT Gender Identity Female 10/30/2019 8:35 AM COIL BINDER Sexual Orientation Straight 10/30/2019 8: 35 AM COIL BINDER COVID-19 Exposure Response Date Recorded In the [...] 8:40 AM CDT Office Visit [facility] Medical Group Family & Internal Medicine [facility] [address] [place] [address] Nestor Fletcher MD [address] [place] [address] 08/26/2025 9:00 AM COIL BINDER Office Visit [facility] Medical Group Multispecialty Care - [facility] [address] [facility] [address] [place] [address] Francisco Levi DO [address] [facility] [address] [place] [address] documented as of this encounter Goals Goal [...] Rule Out 09/11/2023 09/11/2023 09/11/2023 10:29 AM COIL BINDER COVID-19 Rule Out 03/18/2024 03/18/2024 03/18/2024 8:30 PM CDT COVID-19 Rule Out 05/27/2024 05/27/2024 05/27/2024 7:16 PM CDT Assessment Noted Time PHQ-9 Depression Total Score: 0 02/26/20 22 9:40 AM CDT documented as of this encounter Care Teams Rooms Director Relationship Specialty [place] [address] [place] [address] PCP - General FAMILY PRACTICE 05/15/20 documented as of this encounter
--- OUTSIDE RECORDS SUMMARY | 2025-03-30 10:04 | XMS_ITS | Encounter Summary ---
Author Organization [facility] Address [address] [place] [address] Care Team Providers Care Guest Experience Manager Name Role Phone Nestor Fletcher MD Primary Care Provider [phone] Encounter Details Date Type Department Care Team (Late st Contact Info) Description 05/17/2022 [employer] Message Enc [facility] Medical Group Multispecialty Care - [facility] [address] [facility] [address] [place] [address] Francisco Levi DO [address] [facility] [address] [place] [address] Low oxygen Social History Tobacco Use Types Packs/Day Years [...] Sex Assigned at Female 10/30/2019 8:35 AM HEAT TREATMENT TECHNICIAN Legal Sex Female 10:55 PM CDT Gender Identity Female 10/30/2019 8:35 AM HEAT TREATMENT TECHNICIAN Sexual Orientation Straight 10/30/2019 8: 35 AM HEAT TREATMENT TECHNICIAN COVID-19 Exposure Response Date Recorded In the last 10 days, have marielos u been in contact with someone who was confirmed or suspected to have Coronavirus/COVID-19? Yes 05/20/2022 9:24 AM CDT documented as of this encounter [...] 8:40 AM CDT Office Visit [facility] Medical [facility] Family & Internal Medicine [facility] [address] [place] [address] Nestor Fletcher [place] [address] [place] [address] 08/26/2025 9:00 AM HEAT TREATMENT TECHNICIAN Office Visit [facility] Care - [facility] [address] [facility] [address] [place] [address] Francisco Levi DO [address] [facility] [address] [place] [address] documented as of this encounter Visit Diagnoses Not on filedocumented in this encounter Additional Health Concerns Infection Onset Date Last Indicated Resolved Time COVID-19 Rule Out 05/20/2023 05/20/2023 05/20/2023 6:44 PM CDT COVID-19 Rule Out 09/11/2023 09/11/2023 09/11/2023 10:29 AM HEAT TREATMENT TECHNICIAN COVID-19 Rule Out 03/18/2024 03/18/2024 03/18/2024 8:30 PM CDT COVID-19 Rule Out 05/27/2024 05/27/2024 05/27/2024 7:16 PM CDT Assessment Noted Time PHQ-9 Depression Total Score: 0 02/26/20 22 9:40 AM CDT documented as of this encounter Care Teams Guest Experience Manager Relationship Specialty [place] [address] [place] [address] PCP - General FAMILY PRACTICE 05/15/20 documented as of this encounter
--- OUTSIDE RECORDS SUMMARY | 2025-03-30 10:04 | XMS_ITS | Encounter Summary ---
Author Organization [facility] Address [address] [place] [address] Care Team Providers Care Company Accountant Name Role Phone Nestor Fletcher MD Primary Care Provider [phone] Encounter Details Date Type Department Care Team (Late st Contact Info) Description 02/17/2022 [employer] Message Enc [facility] Medical Group [facility] [address] [place] [address] Carlos A Ocasio, DPBrinda [address] [place] [address] Surgery Social History Tobacco Use Types [...] Sex Assigned at Female 10/30/2019 8:35 AM FREIGHT WEIGHER Legal Sex Female 10:55 PM CDT Gender Identity Female 10/30/2019 8:35 AM FREIGHT WEIGHER Sexual Orientation Straight 10/30/2019 8: 35 AM FREIGHT WEIGHER COVID-19 Exposure Response Date Recorded In the [...] Description 04/03/2025 8:40 AM CDT Office Visit [facility] Medical Group Family & Internal Medicine - [place] [address] [place] [address] Nestor Fletcher [place] [address] [place] [address] 08/26/2025 9:00 AM FREIGHT WEIGHER Office Visit [facility] Medical Group Multispecialty Care - [address] [place] [address] Francisco Levi, [address] [place] [address] documented as of this encounter Visit Diagnoses Not on filedocumented in this encounter Additional Health Concerns Infection Onset Date Last Indicated Resolved Time COVID-19 Rule Out 05/20/2023 05/20/2023 05/20/2023 6:44 PM CDT COVID-19 Rule Out 09/11/2023 09/11/2023 09/11/2023 10:29 AM FREIGHT WEIGHER COVID-19 Rule Out 03/18/2024 03/18/2024 03/18/2024 8:30 PM CDT COVID-19 Rule Out 05/27/2024 05/27/2024 05/27/2024 7:16 PM CDT Assessment Noted Time PHQ-9 Depression Total Score: 0 08/24/20 21 2:19 PM FREIGHT WEIGHER documented as of this encounter Care Teams Company Accountant Relationship Specialty [place] [address] [place] [address] PCP - General FAMILY PRACTICE 05/15/20 documented as of this encounter
--- OUTSIDE RECORDS SUMMARY | 2025-03-30 10:04 | XMS_ITS | Encounter Summary ---
Author Organization [facility] Address [address] [place] [address] Care Team Providers Care Technical Support Professional Name Role Phone Nestor Fletcher MD Primary Care Provider +1 [phone] Encounter Details Date Type Department Care Team (Late st Contact Info) Description 06/29/2022 Grid Mobile Message Enc [facility] Medical Group Family & Internal Medicine [address] [address] Nestor Fletcher MD [address] [place] [address] Back pain Social History Tobacco Use Types Packs/Day [...] Sex Assigned at Female 10/30/2019 8:35 AM MAIN GALLEY SCULLION Legal Sex Female 10:55 PM CDT Gender Identity Female 10/30/2019 8:35 AM MAIN GALLEY SCULLION Sexual Orientation Straight 10/30/2019 8: 35 AM MAIN GALLEY SCULLION COVID-19 Exposure Response Date Recorded In the last 10 days, have yo u been in contact with someone who was confirmed or suspected to have Coronavirus/COVID-19? No / Unsure 07/01/2022 9:33 AM CDT documented as of this encounter [...] Office Visit [facility] Medical [facility] Family & Internal Medicine [facility] [address] [place] [address] Nestor Fletcher MD [address] [place] [address] 08/26/2025 9:00 AM MAIN GALLEY SCULLION [facility] [address] [place] [address] Gurmeet FranciscoDO [address] [place] [address] documented as of this encounter Goals Goal Patient Goal Type Associated Problems Recent Progress Patient-Stated? Author Health - patient able to perform ADLs independently Lifestyle No Vega i er, Kareem Camacho RN documented as of this encounter Visit Diagnoses Not on filedocumented in this encounter Additional Health Concerns Infection Onset Date Last Indicated Resolved Time COVID-19 Rule Out 05/20/2023 05/20/2023 05/20/2023 6:44 PM CDT COVID-19 Rule Out 09/11/2023 09/11/2023 09/11/2023 10:29 AM MAIN GALLEY SCULLION COVID-19 Rule Out 03/18/2024 03/18/2024 03/18/2024 8:30 PM CDT COVID-19 Rule Out 05/27/2024 05/27/2024 05/27/2024 7:16 PM CDT Assessment Noted Time PHQ-9 Depression Total Score: 0 02/26/20 22 9:40 AM CDT documented as of this encounter Care Teams Technical Support Professional Relationship Specialty [place] [address] [place] [address] PCP - General FAMILY PRACTICE 05/15/20 documented as of this encounter
--- OUTSIDE RECORDS SUMMARY | 2025-03-30 10:04 | XMS_ITS | Encounter Summary ---
Author Organization [facility] Address [facility] [place] [address] Care Team Providers Care Precision Grinder External Name Role Phone Tutu Hill MD Primary Care Provider + EpworthAry NP Primary Care Provider + None, Provider Primary Care Provider Nestor Ma MD Primary Care Provider [phone] Encounter Details Date Type Department Care Team (Late st Contact Info) Description 06/27/2008 Abstract [email or web address] Conversion , Generic ConversionMD Social History Tobacco Use Types Packs/Day Years Used Date Smoking Tobacco: Never Assessed Comments Unknown Sex and Gender Information Value Date Recorded Sex Assigned at Female 10/30/2019 8:35 AM METAL ROOFING MECHANIC Legal Sex Female 10:55 PM CDT Gender Identity Female 10/30/2019 8:35 AM METAL ROOFING MECHANIC Sexual Orientation Straight 10/30/2019 8: 35 AM METAL ROOFING MECHANIC documented as of this encounter Plan of Treatment Upcoming Encounters Date Type Department Care Team (Late st Contact Info) Description 04/03/2025 8:40 AM CDT Office Visit [facility] Medical Group Family & Internal Medicine [address] [address] Nestor Fletcher MD [address] [place] [address] 08/26/2025 9:00 AM METAL ROOFING MECHANIC Office Visit [facility] Multispecialty Care - [place] [address] [facility] [place] [phone] Francisco Levi DO [address] [place] [address] documented as of this encounter Visit Diagnoses [...] Rule Out 07/06/2020 07/06/2020 07/08/2020 11:00 PM METAL ROOFING MECHANIC COVID-19 Rule Out 07/09/2020 07/09/2020 07/12/2020 10:16 AM METAL ROOFING MECHANIC COVID-19 Rule Out 11/14/2020 11/14/2020 11/15/2020 10:25 AM CDT COVID-19 Rule Out 01/05/2021 01/05/2021 01/05/2021 5:26 PM CDT COVID-19 Rule Out 12/02/2021 12/02/2021 12/02/2021 4:28 PM CDT COVID-19 Rule Out 05/20/2023 05/20/2023 05/20/2023 6:44 PM CDT COVID-19 Rule Out 09/11/2023 09/11/2023 09/11/2023 10:29 AM METAL ROOFING MECHANIC COVID-19 Rule Out 03/18/2024 03/18/2024 03/18/2024 8:30 PM CDT COVID-19 Rule Out 05/27/2024 05/27/2024 05/27/2024 7:16 PM CDT documented as of this encounter Care Teams Precision Grinder External Relationship Specialty Start Date End Date Tutu Hill MD [address] [facility] [address] [place] [address] PCP - General FAMILY PRACTICE 08/09/18 03/19/20 Ary Rubalcava NP [address] [facility] [address] [place] [address] PCP - General Nurse Practitioner Family 03/20/20 709/23 None, MD Santana PCP - General 03/25/20 05/14/20 [place] [address] [facility] [place] [address] PCP - General FAMILY PRACTICE 05/15/20 documented as of this encounter
--- OUTSIDE RECORDS SUMMARY | 2025-03-30 10:04 | XMS_ITS | Encounter Summary ---
Author Organization [facility] Address [address] [place] [address] Care Team Providers Care Professor Of Biological Sciences Name Role Phone Nestor Fletcher MD Primary Care Provider [phone] Encounter Details Date Type Department Care Team (Late st Contact Info) Description 03/14/2022 Mevio Message Enc [facility] Medical Group Foot & Ankle Specialists [facility] [address] [place] [address] Carlos A Ocasio, DPBrinda [address] [place] [address] Referral Social History Tobacco Use Types Packs/Day Years [...] Assigned at Female 10/30/2019 8:35 AM SENIOR STAFF ACCOUNTANT Legal Sex Female 10:55 PM CDT Gender Identity Female 10/30/2019 8:35 AM SENIOR STAFF ACCOUNTANT Sexual Orientation Straight 10/30/2019 8: 35 AM SENIOR STAFF ACCOUNTANT COVID-19 Exposure Response Date Recorded In the last 10 days, have yo u been in contact with someone who was confirmed or suspected to have Coronavirus/COVID-19? No / Unsure 03/16/2022 1:57 PM CDT documented as of this encounter [...] 04/03/2025 8:40 AM CDT Office Visit [facility] Medical Group Family & Internal Medicine - [place] [address] [place] [address] [place]or Fletcher [place] [address] [place] [address] 08/26/2025 9:00 AM SENIOR STAFF ACCOUNTANT Office Visit [facility] Medical Group Multispecialty Care - [address] [place] [address] Francisco Levi, DO [address] [place] [address] documented as of this encounter Visit Diagnoses Not on filedocumented in this encounter Additional Health Concerns Infection Onset Date Last Indicated Resolved Time COVID-19 Rule Out 05/20/2023 05/20/2023 05/20/2023 6:44 PM CDT COVID-19 Rule Out 09/11/2023 09/11/2023 09/11/2023 10:29 AM SENIOR STAFF ACCOUNTANT COVID-19 Rule Out 03/18/2024 03/18/2024 03/18/2024 8:30 PM CDT COVID-19 Rule Out 05/27/2024 05/27/2024 05/27/2024 7:16 PM CDT Assessment Noted Time PHQ-9 Depression Total Score: 0 02/26/20 22 9:40 AM CDT documented as of this encounter Care Teams Professor Of Biological Sciences Relationship Specialty [place] [address] [place] [address] PCP - General FAMILY PRACTICE 05/15/20 documented as of this encounter
--- OUTSIDE RECORDS SUMMARY | 2025-03-30 10:04 | XMS_ITS | Encounter Summary ---
Author Organization [facility] Address [address] [place] [address] Care Team Providers Care Language And Literature Division Chair Name Role Phone Nestor Fletcher MD Primary Care Provider [phone] Encounter Details Date Type Department Care Team (Latest Contact Info) Description 06/08/2022 [email or web address] Message Enc [facility] Multispecialty Care - [facility] [address] [place] [address] Francisco Levi DO [address] [facility] [address] [place] [address] Nebulizer tubing Social History Tobacco Use Types Packs/Day Years [...] Sex Assigned at Female 10/30/2019 8:35 AM PLATFORM STAPLER Legal Sex Female 10:55 PM CDT Gender Identity Female 10/30/2019 8:35 AM PLATFORM STAPLER Sexual Orientation Straight 10/30/2019 8: 35 AM PLATFORM STAPLER COVID-19 Exposure Response Date Recorded In the [...] [facility] Family [facility] Medicine [facility] [address] [place] [address] [place] [address] [place] [address] 08/26/2025 9:00 AM PLATFORM STAPLER Office Visit [facility] Mult[facility]ialty Care - [facility] [address] [place] [address] Francisco Levi DO [address] [facility] [address] [place] [address] documented as of this encounter Goals Goal [...] Rule Out 09/11/2023 09/11/2023 09/11/2023 10:29 AM PLATFORM STAPLER COVID-19 Rule Out 03/18/2024 03/18/2024 03/18/2024 8:30 PM CDT COVID-19 Rule Out 05/27/2024 05/27/2024 05/27/2024 7:16 PM CDT Assessment Noted Time PHQ-9 Depression Total Score: 0 02/26/20 22 9:40 AM CDT documented as of this encounter Care Teams Language And Literature Division Chair Relationship Specialty [place] [address] [place] [address] PCP - General FAMILY PRACTICE 05/15/20 documented as of this encounter
--- OUTSIDE RECORDS SUMMARY | 2025-03-30 10:04 | XMS_ITS | Encounter Summary ---
Author Organization [facility] Address [facility] [place] [address] Care Team Providers Care Architectural Representative Name Role Phone Tutu Hill MD Primary Care Provider + KhadarAry caldera NP Primary Care Provider + None, Provider Primary Care Provider Nestor Ma MD Primary Care Provider [phone] Encounter Details Date Type Department Care Team (Late st Contact Info) Description 11/14/2017 Abstract [facility] Tutu Hill MD [address] [address] Social History Tobacco Use Types Packs/Day Years Used Date Smoking Tobacco: Never Assessed Comments Unknown Sex and Gender Information Value Date Recorded Sex Assigned at Female 10/30/2019 8:35 AM STRIP MACHINE TENDER Legal Sex Female 10:55 PM CDT Gender Identity Female 10/30/2019 8:35 AM STRIP MACHINE TENDER Sexual Orientation Straight 10/30/2019 8: 35 AM STRIP MACHINE TENDER documented as of this encounter Miscellaneous Notes * Letter - Tutu Hill MD - 11/14/2017 12:00 AM CDT 11-14-2017 , Renu Marquez [address] [place] [address] : 1975 Lab Order CMP; Lipid Panel; TSH with reflex T4 E03.8 Other specified hypothyroidism Fasting Normal [x] Stat [] P MACHINE TENDER documented in this encounter Plan of Treatment Upcoming Encounters Date Type Department Care Team (Late st Contact Info) Description 04/03/2025 8:40 AM CDT Office Visit [facility] Family & Internal Medicine - [place] [address] [place] [address] [place]or Fletcher [place] [address] [place] [phone] 08/26/2025 9:00 AM STRIP MACHINE TENDER Office Visit [facility] Multispecialty Care - [facility] [address] [place] [address] Francisco Levi DO [address] [place] [address] documented as of this encounter Visit Diagnoses [...] Rule Out 07/06/2020 07/06/2020 07/08/2020 11:00 PM STRIP MACHINE TENDER COVID-19 Rule Out 07/09/2020 07/09/2020 07/12/2020 10:16 AM STRIP MACHINE TENDER COVID-19 Rule Out 11/14/2020 11/14/2020 11/15/2020 10:25 AM CDT COVID-19 Rule Out 01/05/2021 01/05/2021 01/05/2021 5:26 PM CDT COVID-19 Rule Out 12/02/2021 12/02/2021 12/02/2021 4:28 PM CDT COVID-19 Rule Out 05/20/2023 05/20/2023 05/20/2023 6:44 PM CDT COVID-19 Rule Out 09/11/2023 09/11/2023 09/11/2023 10:29 AM STRIP MACHINE TENDER COVID-19 Rule Out 03/18/2024 03/18/2024 03/18/2024 8:30 PM CDT COVID-19 Rule Out 05/27/2024 05/27/2024 05/27/2024 7:16 PM CDT documented as of this encounter Care Teams Architectural Representative Relationship Specialty Start Date End Date Tutu Hill MD [address] [facility] [address] [place] [address] PCP - General FAMILY PRACTICE 08/09/18 03/19/20 Ary Rubalcava NP [address] [facility] [address] [place] [address] PCP - General Nurse Practitioner Family 03/20/20 709/23 None, MD Santana PCP - General 03/25/20 05/14/20 [place] [address] [place] [address] PCP - General FAMILY PRACTICE 05/15/20 documented as of this encounter
--- OUTSIDE RECORDS SUMMARY | 2025-03-30 10:04 | XMS_ITS | Encounter Summary ---
Author Organization [facility] Address [facility] [place] [address] Care Team Providers Care Machine Chocolate Molder Name Role Phone None, Provider Primary Care Provider Nestor Ma MD Primary Care Provider [phone] Encounter Details Date Type Department Care Team (Late st Contact Info) Description 03/26/2020 [facility] AT [address] [address] Cullen Sprague MD [address] [address] Test Results Social History Tobacco Use Types Packs/Day Years [...] Sex Assigned at Female 10/30/2019 8:35 AM ALLIGATOR HUNTER Legal Sex Female 10:55 PM CDT Gender Identity Female 10/30/2019 8:35 AM ALLIGATOR HUNTER Sexual Orientation Straight 10/30/2019 8: 35 AM ALLIGATOR HUNTER COVID-19 Exposure Response Date Recorded In the last month, have you been in contact with someone who was confirmed or suspected to have Coronavirus / COVID-19? No / Unsure 03/27/2020 10:39 AM CDT documented as of this encounter Progress Notes * Vee Eddy RN - 03/26/2020 11:48 AM CDT Patient informed of the response from Angelica MILES. Patient v/u and had no further questions. * Angelica Archer NP - 03/26/2020 11:39 AM CDT I prefer that you call her back with this information because it can get confusing when typing. Current 10 year risk 3.5% PRIOR to starting HCTZ. After starting the BP med, risk is reduced to 2.5%. Can further be lowered to 1.9% with quitting smoking. So overall, the cholesterol numbers are not the sole problem/risk. In regards to BP, just continue for now. Await echo results. Ok to continue nitro as needed. He didmention in his note that nitro could help with esophageal spasm as well. * Vee Eddy RN - 03/26/2020 10:20 AM CDT See below documented in this encounter Plan of Treatment Upcoming Encounters Date Type Department Care Team (Late st Contact Info) Description 04/03/2025 8:40 AM CDT Office Visit [facility] Family & Internal Medicine - [place] [address] [place] [address] Nestor Fletcher [place] [id number] [place] [address] 08/26/2025 9:00 AM ALLIGATOR HUNTER Office Visit [facility] Multispecialty Care - [address] [place] [address] Francisco Levi DO [address] [place] [address] documented as of this encounter Visit Diagnoses Not on filedocumented in this encounter Additional Health Concerns Infection Onset Date Last Indicated Resolved Time COVID-19 Rule Out 05/15/2020 05/15/2020 05/16/2020 8:21 PM CDT COVID-19 Rule Out 05/25/2020 05/25/2020 05/27/2020 12:21 AM CDT COVID-19 Rule Out 06/26/2020 06/26/2020 06/27/2020 4:51 PM CDT COVID-19 Rule Out 07/06/2020 07/06/2020 07/08/2020 11:00 PM ALLIGATOR HUNTER COVID-19 Rule Out 07/09/2020 07/09/2020 07/12/2020 10:16 AM ALLIGATOR HUNTER COVID-19 Rule Out 11/14/2020 11/14/2020 11/15/2020 10:25 AM CDT COVID-19 Rule Out 01/05/2021 01/05/2021 01/05/2021 5:26 PM CDT COVID-19 Rule Out 12/02/2021 12/02/2021 12/02/2021 4:28 PM CDT COVID-19 Rule Out 05/20/2023 05/20/2023 05/20/2023 6:44 PM CDT COVID-19 Rule Out 09/11/2023 09/11/2023 09/11/2023 10:29 AM ALLIGATOR HUNTER COVID-19 Rule Out 03/18/2024 03/18/2024 03/18/2024 8:30 PM CDT COVID-19 Rule Out 05/27/2024 05/27/2024 05/27/2024 7:16 PM CDT documented as of this encounter Care Teams Machine Chocolate Molder Relationship Specialty Start Date End Date None, Provider, PCP - General 03/25/20 05/14/20 [place] [address] [place] [address] PCP - General FAMILY PRACTICE 05/15/20 documented as of this encounter
--- OUTSIDE RECORDS SUMMARY | 2025-03-30 10:04 | XMS_ITS | Encounter Summary ---
Author Organization [facility] Address [address] [place] [address] Care Team Providers Care Mill Order Scheduler Name Role Phone Nestor Fletcher MD Primary Care Provider [phone] Encounter Details Date Type Department Care Team (Latest Contact Info) Description 06/15/2022 [place] Message Enc [facility] Medical Group Multispecialty Care - [facility] [address] [facility] [place] [address] Pura Velazquez APRN [address] [facility] [address] [place] [address] Question regarding XR CERV SPINE AP+LAT 2V Social History Tobacco Use Types Packs/Day Years [...] Sex Assigned at Female 10/30/2019 8:35 AM CIVIL ENGINEERING ASSISTANT Legal Sex Female 10:55 PM CDT Gender Identity Female 10/30/2019 8:35 AM CIVIL ENGINEERING ASSISTANT Sexual Orientation Straight 10/30/2019 8: 35 AM CIVIL ENGINEERING ASSISTANT COVID-19 Exposure Response Date Recorded In the [...] Progress Notes * Vianney Segundo MA - 06/15/2022 2:30 PM CDT Please review cervical xray from today and advise. Thank you so much. * Avonjan?? Doug Hale MA - 06/15/2022 2:29 PM CDT Varsha talk to the patient answered all questions documented in this encounter Plan of Treatment Upcoming Encounters Date Type Department Care Team (Late st Contact Info) Description 04/03/2025 8:40 AM CDT Office Visit [facility] Family & Internal Medicine [facility] [address] [place] [address] [place] [address] [place] [address] 08/26/2025 9:00 AM CIVIL ENGINEERING ASSISTANT Office Visit [facility] Multispecialty Care - [facility] [address] [facility] [address] [place] [address] Francisco Levi DO [address] [facility] [address] [place] [address] documented as of this encounter Goals Goal [...] Rule Out 09/11/2023 09/11/2023 09/11/2023 10:29 AM CIVIL ENGINEERING ASSISTANT COVID-19 Rule Out 03/18/2024 03/18/2024 03/18/2024 8:30 PM CDT COVID-19 Rule Out 05/27/2024 05/27/2024 05/27/2024 7:16 PM CDT Assessment Noted Time PHQ-9 Depression Total Score: 0 02/26/20 9:40 AM CDT documented as of this encounter Care Teams Mill Order Scheduler Relationship Specialty [place] [address] [place] [address] PCP - General FAMILY PRACTICE 05/15/20 documented as of this encounter
--- OUTSIDE RECORDS SUMMARY | 2025-03-30 10:04 | XMS_ITS | Encounter Summary ---
Author Organization [facility] Address [address] [place] [address] Care Team Providers Care Parts Sales Counterperson Name Role Phone Nestor Fletcher MD Primary Care Provider [phone] Encounter Details Date Type Department Care Team (Late st Contact Info) Description 03/23/2022 MentiNova Message Enc [facility] Medical Group Family & Internal Medicine [address] [address] Nestor Fletcher MD [address] [place] [address] Pain management Social History Tobacco Use Types Packs/Day Years [...] Assigned at Female 10/30/2019 8:35 AM COMPUTER FORENSIC SPECIALIST Legal Sex Female 10:55 PM CDT Gender Identity Female 10/30/2019 8:35 AM COMPUTER FORENSIC SPECIALIST Sexual Orientation Straight 10/30/2019 8: 35 AM COMPUTER FORENSIC SPECIALIST COVID-19 Exposure Response Date Recorded In [...] Medical Group Family & Internal Medicine - [place] [address] [place] [address] Nestor Fletcher MD [address] [place] [address] 08/26/2025 9:00 AM COMPUTER FORENSIC SPECIALIST Office Visit [facility] Medical Group Multispecialty Care - [address] [place] [address] Francisco Levi, DO [address] [place] [address] documented as of this encounter Visit Diagnoses Not on filedocumented in this encounter Additional Health Concerns Infection Onset Date Last Indicated Resolved Time COVID-19 Rule Out 05/20/2023 05/20/2023 05/20/2023 6:44 PM CDT COVID-19 Rule Out 09/11/2023 09/11/2023 09/11/2023 10:29 AM COMPUTER FORENSIC SPECIALIST COVID-19 Rule Out 03/18/2024 03/18/2024 03/18/2024 8:30 PM CDT COVID-19 Rule Out 05/27/2024 05/27/2024 05/27/2024 7:16 PM CDT Assessment Noted Time PHQ-9 Depression Total Score: 0 02/26/20 22 9:40 AM CDT documented as of this encounter Care Teams Parts Sales Counterperson Relationship Specialty [place] [address] [place] [address] PCP - General FAMILY PRACTICE 05/15/20 documented as of this encounter
--- OUTSIDE RECORDS SUMMARY | 2025-03-30 10:04 | XMS_ITS | Encounter Summary ---
Author Organization [facility] Address [address] [place] [address] Care Team Providers Care Seismograph Helper Name Role Phone Nestor Fletcher MD Primary Care Provider [phone] Encounter Details Date Type Department Care Team (Late st Contact Info) Description 03/09/2022 What the Trend Message Enc [facility] Medical Group Family & Internal Medicine [address] [address] Nestor Fletcher MD [address] [place] [address] Pain meds Social History Tobacco Use [...] Sex Assigned at Female 10/30/2019 8:35 AM LIGHTING DESIGNER Legal Sex Female 10:55 PM CDT Gender Identity Female 10/30/2019 8:35 AM LIGHTING DESIGNER Sexual Orientation Straight 10/30/2019 8: 35 AM LIGHTING DESIGNER COVID-19 Exposure Response Date Recorded In [...] Description 04/03/2025 8:40 AM CDT Office Visit [facility] Medical Group Family & Internal Medicine - [place] [address] [place] [address] Nestor Fletcher MD [address] [place] [address] 08/26/2025 9:00 AM LIGHTING DESIGNER Office Visit [facility] Medical Group Multispecialty Care - [address] [place] [address] Francisco Levi, DO [address] [place] [address] documented as of this encounter Visit Diagnoses Not on filedocumented in this encounter Additional Health Concerns Infection Onset Date Last Indicated Resolved Time COVID-19 Rule Out 05/20/2023 05/20/2023 05/20/2023 6:44 PM CDT COVID-19 Rule Out 09/11/2023 09/11/2023 09/11/2023 10:29 AM LIGHTING DESIGNER COVID-19 Rule Out 03/18/2024 03/18/2024 03/18/2024 8:30 PM CDT COVID-19 Rule Out 05/27/2024 05/27/2024 05/27/2024 7:16 PM CDT Assessment Noted Time PHQ-9 Depression Total Score: 0 02/26/20 22 9:40 AM CDT documented as of this encounter Care Teams Seismograph Helper Relationship Specialty [place] [address] [place] [address] PCP - General FAMILY PRACTICE 05/15/20 documented as of this encounter
--- OUTSIDE RECORDS SUMMARY | 2025-03-30 10:04 | XMS_ITS | Encounter Summary ---
Author Organization [facility] Address [facility] [place] [address] Care Team Providers Care Loader Machine Name Role Phone Tutu Hill MD Primary Care Provider + Preston HollowAry NP Primary Care Provider + None, Provider Primary Care Provider Nestor Ma MD Primary Care Provider +[phone] Encounter Details Date Type Department Care Team (Late st Contact Info) Description 03/12/2020 Prep for Procedure [facility] [place] [facility] [address] [place] [address] [place] [address] [address] Social History Tobacco Use Types Packs/Day Years [...] Sex Assigned at Female 10/30/2019 8:35 AM DISH CLOTH INSPECTOR Legal Sex Female 10:55 PM CDT Gender Identity Female 10/30/2019 8:35 AM DISH CLOTH INSPECTOR Sexual Orientation Straight 10/30/2019 8: 35 AM DISH CLOTH INSPECTOR COVID-19 Exposure Response Date Recorded In the last month, have you been in contact with someone who was confirmed or suspected to have Coronavirus / COVID-19? No / Unsure 03/13/2020 11:29 AM CDT documented as of this encounter Plan of Treatment Upcoming Encounters Date Type Department Care Team (Late st Contact Info) Description 04/03/2025 8:40 AM CDT Office Visit [facility] Family & Internal Medicine [facility] [address] [place] [phone] [place] [address] [place], [place] [id number] 08/26/2025 9:00 AM DISH CLOTH INSPECTOR Office Visit [facility] Multispecialty Care - [facility] [address] [place] [address] Francisco Levi DO [address] [place] [address] documented as of this encounter Results * PRE-SURGICAL/PRE-PROCEDURE CORONAVIRUS (COVID 19) (03/13/2020 11:30 AM CDT) CORONAVIRUS SARS COV 2 PCR (RESP) NOT DETECTED NOT DETECTED 03/15/2020 3:17 AM CDT [facility] Comment: A Not Detected (negative) test result for this test means that SARS- CoV-2 RNA was not present in the specimen above the limit of detection. A negative result does not rule out the possibility of COVID-19 and should not be used as the sole basis for treatment or patient management decisions. If COVID-19 is still suspected, based on exposure history together with other clinical findings, re-testing should be considered in consultation with public health authorities. Laboratory test results should always be considered in the context of clinical observations and epidemiological data in making a final diagnosis and patient management decisions. Please review the Fact Sheets and FDA authorized labeling available for health care providers and patients using the following websites: [email or web address]/[email or web address]/NAAT/fact-[email or web address]://[email or web address]/home/[email or web address]-19/Patients/NAAT/ fact-sheet2 This test has been authorized by the FDA under an Emergency Use Authorization (EUA) for use by authorized laboratories. Due to the current public health emergency, [facility] is receiving a high volume of samples from a wide variety of swabs and media for COVID-19 testing. In order to serve patients during this public health crisis, samples from appropriate clinical sources are being tested. Negative test results derived from specimens received in non-commercially manufactured viral collection and transport media, or in media and sample collection kits not yet authorized by FDA for COVID-19 testing should be cautiously evaluated and the patient potentially subjected to extra precautions such as additional clinical monitoring, including collection of an additional specimen. Methodology: Nucleic Acid Amplification Test (NAAT) includes PCR or TMA Additional information about COVID-19 can be found at the [employer] [facility] website: [email or web address]. Test performed at [facility] [address] [place] [address] Director: BURT GALLOWAY DO,MPH NASOPHARYNGEAL SWAB / Unknown 03/13/2020 11:30 AM CDT us Hamilton Martin MD MICROBIOLOGY - GENERAL ORDERABLES Final Result [employer] [facility] [employer] [id number] [place] [address] documented in this encounter Visit Diagnoses Diagnosis Pre-op testing- Primary Preoperative examination, unspecified documented in this encounter Additional Health Concerns Infection Onset Date Last Indicated Resolved Time COVID-19 Rule Out 03/13/2020 03/13/2020 03/15/2020 3:18 AM CDT COVID-19 Rule Out 05/15/2020 05/15/2020 05/16/2020 8:21 PM CDT COVID-19 Rule Out 05/25/2020 05/25/2020 05/27/2020 12:21 AM CDT COVID-19 Rule Out 06/26/2020 06/26/2020 06/27/2020 4:51 PM CDT COVID-19 Rule Out 07/06/2020 07/06/2020 07/08/2020 11:00 PM DISH CLOTH INSPECTOR COVID-19 Rule Out 07/09/2020 07/09/2020 07/12/2020 10:16 AM DISH CLOTH INSPECTOR COVID-19 Rule Out 11/14/2020 11/14/2020 11/15/2020 10:25 AM CDT COVID-19 Rule Out 01/05/2021 01/05/2021 01/05/2021 5:26 PM CDT COVID-19 Rule Out 12/02/2021 12/02/2021 12/02/2021 4:28 PM CDT COVID-19 Rule Out 05/20/2023 05/20/2023 05/20/2023 6:44 PM CDT COVID-19 Rule Out 09/11/2023 09/11/2023 09/11/2023 10:29 AM DISH CLOTH INSPECTOR COVID-19 Rule Out 03/18/2024 03/18/2024 03/18/2024 8:30 PM CDT COVID-19 Rule Out 05/27/2024 05/27/2024 05/27/2024 7:16 PM CDT documented as of this encounter Care Teams Loader Machine Relationship Specialty Start Date End Date Tutu Hill MD [address] [facility] [address] [place] [phone] PCP - General FAMILY PRACTICE 08/09/18 03/19/20 Ary Rubalcava NP [address] [facility] [address] [place] [address] PCP - General Nurse Practitioner Family 03/20/20 709/23 None, MD [place]ana PCP - General 03/25/20 05/14/20 [place] [address] [place] [address] PCP - General FAMILY PRACTICE 05/15/20 documented as of this encounter
--- OUTSIDE RECORDS SUMMARY | 2025-03-30 10:04 | XMS_ITS | Encounter Summary ---
Author Organization [facility] Address [address] [place] [address] Care Team Providers Care Thin Film Technician Name Role Phone Nestor Fletcher MD Primary Care Provider +1 [phone] Encounter Details Date Type Department Care Team (Late st Contact Info) Description 05/19/2022 [employer] Message Enc [facility] Medical Group Family & Internal Medicine [facility] [address] [place] [address] Natali Polo, WILLY [address] [facility] [address] [place] [address] Alex Social History Tobacco Use Types Packs/Day Years [...] Sex Assigned at Female 10/30/2019 8:35 AM ELECTRONIC ENGINEERING TECHNICIAN Legal Sex Female 10:55 PM CDT Gender Identity Female 10/30/2019 8:35 AM ELECTRONIC ENGINEERING TECHNICIAN Sexual Orientation Straight 10/30/2019 8: 35 AM ELECTRONIC ENGINEERING TECHNICIAN COVID-19 Exposure Response Date Recorded In [...] encounter Progress Notes * WILLY Hamilton - 05/20/2022 8:34 AM CDT Is there a way that he can be set up with a pediatric psych as I do not specialize in this unfortunately. Thank you. documented in this encounter Plan of Treatment Upcoming Encounters Date Type Department Care Team (Late st Contact Info) Description 04/03/2025 8:40 AM CDT Office Visit [facility] Medical Group Family & Internal Medicine [address] [address] [place] [address] [place] [address] 08/26/2025 9:00 AM ELECTRONIC ENGINEERING TECHNICIAN Office Visit [facility] Medical Group Multispecialty Care - [facility] [address] [place] [address] Francisco Levi DO [address] [facility] [place] [address] documented as of this encounter Visit Diagnoses Not on filedocumented in this encounter Additional Health Concerns Infection Onset Date Last Indicated Resolved Time COVID-19 Rule Out 05/20/2023 05/20/2023 05/20/2023 6:44 PM CDT COVID-19 Rule Out 09/11/2023 09/11/2023 09/11/2023 10:29 AM ELECTRONIC ENGINEERING TECHNICIAN COVID-19 Rule Out 03/18/2024 03/18/2024 03/18/2024 8:30 PM CDT COVID-19 Rule Out 05/27/2024 05/27/2024 05/27/2024 7:16 PM CDT Assessment Noted Time PHQ-9 Depression Total Score: 0 02/26/20 22 9:40 AM CDT documented as of this encounter Care Teams Thin Film Technician Relationship Specialty [place] [address] [place] [address] PCP - General FAMILY PRACTICE 05/15/20 documented as of this encounter
--- OUTSIDE RECORDS SUMMARY | 2025-03-30 10:04 | XMS_ITS | Encounter Summary ---
Author Organization [facility] Address [address] [place] [address] Care Team Providers Care Hogshead Roller Name Role Phone Nestor Fletcher MD Primary Care Provider [phone]- [phone] Encounter Details Date Type Department Care Team (Late st Contact Info) Description 03/18/2025 [employer] Message Enc [facility] Medical Group Family & Internal Medicine [address] [address] Nestor Fletcher MD [address] [place] [address] Heart palpations Social History Tobacco Use Types Packs/Day Years [...] Sex Assigned at Female 10/30/2019 8:35 AM RN ORTHO Legal Sex Female 10:55 PM CDT Gender Identity Female 10/30/2019 8:35 AM RN ORTHO Sexual Orientation Straight 10/30/2019 8: 35 AM RN ORTHO documented as of this encounter Functional Status [...] Author Status No 06/06/2022 12:00 PM CDT Georiga Lovell RN Active documented in this encounter Plan of Treatment Upcoming Encounters Date Type Department Care Team (Late st Contact Info) Description 04/03/2025 8:40 AM CDT Office Visit [facility] Medical Group Family & Internal Medicine - [place] [address] [place] [address] Nestor Fletcher MD [address] [place] [address] 08/26/2025 9:00 AM RN ORTHO Office Visit [facility] Multispecialty Care - [facility] [address] [facility] [place] [address] Francisco Levi DO [address] [facility] [address] [place] [address] documented as of this encounter Goals Goal Patient Goal Type Associated Problems Recent Progress Patient-Stated? Author Health - patient able to perform ADLs independently Lifestyle No Koerlizme i er, Kareem Camacho RN documented as of this encounter Visit Diagnoses Not on filedocumented in this encounter Additional Health Concerns Assessment Noted Time PHQ-9 Depression Total Score: 13 025 11:16 AM RN ORTHO documented as of this encounter Care Teams Hogshead Roller Relationship Specialty [place] [address] [place] [address] PCP - General FAMILY PRACTICE 05/15/20 documented as of this encounter
--- OUTSIDE RECORDS SUMMARY | 2025-03-30 10:04 | XMS_ITS | Encounter Summary ---
Author Organization [facility] Address [address] [place] [address] Care Team Providers Care Political Aide Name Role Phone Nestor Fletcher MD Primary Care Provider +1 [phone] Encounter Details Date Type Department Care Team (Late st Contact Info) Description 02/25/2022 [employer] Message Enc [facility] Medical Group Family & Internal Medicine [address] [address] Nestor Fletcher MD [address] [place] [address] Meds Social History Tobacco Use Types Packs/Day Years [...] Sex Assigned at Female 10/30/2019 8:35 AM PULL OVER Legal Sex Female 10:55 PM CDT Gender Identity Female 10/30/2019 8:35 AM PULL OVER Sexual Orientation Straight 10/30/2019 8: 35 AM PULL OVER COVID-19 Exposure Response Date Recorded In the [...] Medical Group Family & Internal Medicine - [place] [address] [place] [address] Nestor Fletcher MD [address] [place] [address] 08/26/2025 9:00 AM PULL OVER Office Visit [facility] Medical Group Multispecialty Care - [address] [place] [address] Francisco Levi, DO [address] [place] [address] documented as of this encounter Visit Diagnoses Not on filedocumented in this encounter Additional Health Concerns Infection Onset Date Last Indicated Resolved Time COVID-19 Rule Out 05/20/2023 05/20/2023 05/20/2023 6:44 PM CDT COVID-19 Rule Out 09/11/2023 09/11/2023 09/11/2023 10:29 AM PULL OVER COVID-19 Rule Out 03/18/2024 03/18/2024 03/18/2024 8:30 PM CDT COVID-19 Rule Out 05/27/2024 05/27/2024 05/27/2024 7:16 PM CDT Assessment Noted Time PHQ-9 Depression Total Score: 0 02/26/20 22 9:40 AM CDT documented as of this encounter Care Teams Political Aide Relationship Specialty [place] [address] [place] [address] PCP - General FAMILY PRACTICE 05/15/20 documented as of this encounter
--- OUTSIDE RECORDS SUMMARY | 2025-03-30 10:04 | XMS_ITS | Encounter Summary ---
Author Organization [facility] Address [facility] [place] [address] Care Team Providers Care Tow Bar Driver Name Role Phone Tutu Hill MD Primary Care Provider + KhadarAry caldera NP Primary Care Provider + None, Provider Primary Care Provider Nestor Ma MD Primary Care Provider [phone]- [phone] Encounter Details Date Type Department Care Team (Late st Contact Info) Description 05/14/2018 Abstract [facility] Tutu Hill MD [address] [address] Social History Tobacco Use Types Packs/Day Years Used Date Smoking Tobacco: Never Assessed Comments Unknown Sex and Gender Information Value Date Recorded Sex Assigned at Female 10/30/2019 8:35 AM PRODUCE MANAGER Legal Sex Female 10:55 PM CDT Gender Identity Female 10/30/2019 8:35 AM PRODUCE MANAGER Sexual Orientation Straight 10/30/2019 8: 35 AM PRODUCE MANAGER documented as of this encounter Miscellaneous Notes * Letter - Tutu Hill MD - 05/14/2018 12:00 AM CDT May 14, 2018 Renu Marquez [address] [place] [address] Dear Renu Marquez, Thank you for choosing [facility] for your health care needs. We appreciate the opportunity to help you maintain your well being. You recently had thyroid testing done. Your results came back normal and no changes are needed at this time . Please remember to follow upas discussed at your last appointment. If you have any questions please feel free to call the office at [phone], Option #3 or Option #1 to make an appointment to discuss these results. Respectfully Yours, Electronically Signed by: Tutu Hill MD Cc: Patients Medical Record UCE MANAGER documented in this encounter Plan of Treatment Upcoming Encounters Date Type Department Care Team (Late st Contact Info) Description 04/03/2025 8:40 AM CDT Office Visit [facility] Family & Internal Medicine - [address] [address] Nestor Fletcher [place] [address] [place] [id number] 08/26/2025 9:00 AM PRODUCE MANAGER Office Visit [facility] Multispecialty Care - [facility] [address] [facility] [address] [place] [address] Francisco Levi DO [address] [facility] [address] [place] [address] documented as of this encounter Visit Diagnoses [...] Rule Out 07/06/2020 07/06/2020 07/08/2020 11:00 PM PRODUCE MANAGER COVID-19 Rule Out 07/09/2020 07/09/2020 07/12/2020 10:16 AM PRODUCE MANAGER COVID-19 Rule Out 11/14/2020 11/14/2020 11/15/2020 10:25 AM CDT COVID-19 Rule Out 01/05/2021 01/05/2021 01/05/2021 5:26 PM CDT COVID-19 Rule Out 12/02/2021 12/02/2021 12/02/2021 4:28 PM CDT COVID-19 Rule Out 05/20/2023 05/20/2023 05/20/2023 6:44 PM CDT COVID-19 Rule Out 09/11/2023 09/11/2023 09/11/2023 10:29 AM PRODUCE MANAGER COVID-19 Rule Out 03/18/2024 03/18/2024 03/18/2024 8:30 PM CDT COVID-19 Rule Out 05/27/2024 05/27/2024 05/27/2024 7:16 PM CDT documented as of this encounter Care Teams Tow Bar Driver Relationship Specialty Start Date End Date Tutu Hill MD [address] [email or web address] [address] [place] [address] PCP - General FAMILY PRACTICE 08/09/18 03/19/20 Ary Rubalcava NP [address] [facility] [address] [place] [address] PCP - General Nurse Practitioner Family 03/20/20 7/09/23 None, Provider, PCP - General 03/25/20 05/14/20 [place] [address] [place] [address] PCP - General FAMILY PRACTICE 05/15/20 documented as of this encounter
--- OUTSIDE RECORDS SUMMARY | 2025-03-30 10:04 | XMS_ITS | Encounter Summary ---
Author Organization [facility] Address [address] [place] [address] Care Team Providers Care Railroad Dispatcher Name Role Phone Nestor Fletcher MD Primary Care Provider +1 [phone] Encounter Details Date Type Department Care Team (Late st Contact Info) Description 03/18/2022 [employer] Message Enc [facility] Medical Group Family & Internal Medicine [facility] [address] [place] [address] Natali Polo APNP [address] [facility] [address] [place] [address] Shot record Social History Tobacco Use Types Packs/Day Years [...] Assigned at Female 10/30/2019 8:35 AM METAL ENGINEERING PROCESS WORKER Legal Sex Female 10:55 PM CDT Gender Identity Female 10/30/2019 8:35 AM METAL ENGINEERING PROCESS WORKER Sexual Orientation Straight 10/30/2019 8: 35 AM METAL ENGINEERING PROCESS WORKER COVID-19 Exposure Response Date Recorded In the [...] Description 04/03/2025 8:40 AM CDT Office Visit [facility] Medical Group Family & Internal Medicine - [place] [address] [place] [address] Nestor Fletcher MD [address] [place] [address] 08/26/2025 9:00 AM METAL ENGINEERING PROCESS WORKER Office Visit [facility] Medical Group Multispecialty Care - [address] [place] [address] Francisco Levi, [address] [place] [address] documented as of this encounter Visit Diagnoses Not on filedocumented in this encounter Additional Health Concerns Infection Onset Date Last Indicated Resolved Time COVID-19 Rule Out 05/20/2023 05/20/2023 05/20/2023 6:44 PM CDT COVID-19 Rule Out 09/11/2023 09/11/2023 09/11/2023 10:29 AM METAL ENGINEERING PROCESS WORKER COVID-19 Rule Out 03/18/2024 03/18/2024 03/18/2024 8:30 PM CDT COVID-19 Rule Out 05/27/2024 05/27/2024 05/27/2024 7:16 PM CDT Assessment Noted Time PHQ-9 Depression Total Score: 0 02/26/20 22 9:40 AM CDT documented as of this encounter Care Teams Railroad Dispatcher Relationship Specialty [place] [address] [place] [address] PCP - General FAMILY PRACTICE 05/15/20 documented as of this encounter
--- OUTSIDE RECORDS SUMMARY | 2025-03-30 10:04 | XMS_ITS | Encounter Summary ---
Author Organization [facility] Address [address] [place] [address] Care Team Providers Care Cap Jewel Plate Assembler Name Role Phone None, Provider Primary Care Provider Nestor Ma MD Primary Care Provider +[phone]- [phone] Encounter Details Date Type Department Care Team (Late st Contact Info) Description 03/25/2020 [employer] Message [facility] [address] [place] [address] Tutu Hill MD [address] [facility] [address] [place] [address] RE: Medication Questions Social History Tobacco Use [...] Sex Assigned at Female 10/30/2019 8:35 AM INPATIENT CODER Legal Sex Female 10:55 PM CDT Gender Identity Female 10/30/2019 8:35 AM INPATIENT CODER Sexual Orientation Straight 10/30/2019 8: 35 AM INPATIENT CODER COVID-19 Exposure Response Date Recorded In the last month, have you been in contact with someone who was confirmed or suspected to have Coronavirus / COVID-19? No / Unsure 03/27/2020 10:39 AM CDT documented as of this encounter Plan of Treatment Upcoming Encounters Date Type Department Care Team (Late st Contact Info) Description 04/03/2025 8:40 AM CDT Office Visit [facility] Family & Internal Medicine - [place] [address] [place] [address] [place] [address] [place] [address] 08/26/2025 9:00 AM INPATIENT CODER Office Visit [facility] Multispecialty Care - [facility] [address] [place] [address] Francisco Levi DO [address] [facility] [address] [place] [address] documented as of this encounter Visit Diagnoses Not on filedocumented in this encounter Additional Health Concerns Infection Onset Date Last Indicated Resolved Time COVID-19 Rule Out 05/15/2020 05/15/2020 05/16/2020 8:21 PM CDT COVID-19 Rule Out 05/25/2020 05/25/2020 05/27/2020 12:21 AM CDT COVID-19 Rule Out 06/26/2020 06/26/2020 06/27/2020 4:51 PM CDT COVID-19 Rule Out 07/06/2020 07/06/2020 07/08/2020 11:00 PM INPATIENT CODER COVID-19 Rule Out 07/09/2020 07/09/2020 07/12/2020 10:16 AM INPATIENT CODER COVID-19 Rule Out 11/14/2020 11/14/2020 11/15/2020 10:25 AM CDT COVID-19 Rule Out 01/05/2021 01/05/2021 01/05/2021 5:26 PM CDT COVID-19 Rule Out 12/02/2021 12/02/2021 12/02/2021 4:28 PM CDT COVID-19 Rule Out 05/20/2023 05/20/2023 05/20/2023 6:44 PM CDT COVID-19 Rule Out 09/11/2023 09/11/2023 09/11/2023 10:29 AM INPATIENT CODER COVID-19 Rule Out 03/18/2024 03/18/2024 03/18/2024 8:30 PM CDT COVID-19 Rule Out 05/27/2024 05/27/2024 05/27/2024 7:16 PM CDT documented as of this encounter Care Teams Cap Jewel Plate Assembler Relationship Specialty Start Date End Date None, Provider, PCP - General 03/25/20 05/14/20 [place] [address] [place] [address] PCP - General FAMILY PRACTICE 05/15/20 documented as of this encounter
--- OUTSIDE RECORDS SUMMARY | 2025-03-30 10:05 | XMS_ITS | Encounter Summary ---
Author Organization [facility] Address [address] [place] [address] Care Team Providers Care International Student Counselor Name Role Phone None, Provider Primary Care Provider Nestor Ma MD Primary Care Provider [phone] Encounter Details Date Type Department Care Team (Late st Contact Info) Description 05/04/2020 Just[employer] Message Enc [facility] Medical Group Family & Internal Medicine [facility] [address] [place] [address] [place] Fletcher [place] [id number] [place] [address] Question Social History Tobacco Use Types [...] Sex Assigned at Female 10/30/2019 8:35 AM NEEDLE LOOM WEAVER Legal Sex Female 10:55 PM CDT Gender Identity Female 10/30/2019 8:35 AM NEEDLE LOOM WEAVER Sexual Orientation Straight 10/30/2019 8: 35 AM NEEDLE LOOM WEAVER COVID-19 Exposure Response Date Recorded In the last month, have you been in contact with someone who was confirmed or suspected to have Coronavirus / COVID-19? No / Unsure 05/04/2020 10:12 AM CDT documented as of this encounter [...] documented in this encounter Progress Notes * Edie Richards MA - 05/07/2020 9:[address] Fletcher advised to try medication first left detailed message on machine * Sandra Aguiar RN - 05/06/2020 3:57 PM CDT Printed for Dr. Fletcher to advise. documented in this encounter Plan of Treatment Upcoming Encounters Date Type Department Care Team (Late st Contact Info) Description 04/03/2025 8:40 AM CDT Office Visit [facility] Family & Internal Medicine - [place] [address] [place] [address] [place] [address] [place] [address] 08/26/2025 9:00 AM NEEDLE LOOM WEAVER Office Visit [facility] Multispecialty Care - [facility] [place] [address] [place] [phone] Francisco Levi DO [address] [place] [address] documented as of this encounter Visit Diagnoses Not on filedocumented in this encounter Additional Health Concerns Infection Onset Date Last Indicated Resolved Time COVID-19 Rule Out 05/15/2020 05/15/2020 05/16/2020 8:21 PM CDT COVID-19 Rule Out 05/25/2020 05/25/2020 05/27/2020 12:21 AM CDT COVID-19 Rule Out 06/26/2020 06/26/2020 06/27/2020 4:51 PM CDT COVID-19 Rule Out 07/06/2020 07/06/2020 07/08/2020 11:00 PM NEEDLE LOOM WEAVER COVID-19 Rule Out 07/09/2020 07/09/2020 07/12/2020 10:16 AM NEEDLE LOOM WEAVER COVID-19 Rule Out 11/14/2020 11/14/2020 11/15/2020 10:25 AM CDT COVID-19 Rule Out 01/05/2021 01/05/2021 01/05/2021 5:26 PM CDT COVID-19 Rule Out 12/02/2021 12/02/2021 12/02/2021 4:28 PM CDT COVID-19 Rule Out 05/20/2023 05/20/2023 05/20/2023 6:44 PM CDT COVID-19 Rule Out 09/11/2023 09/11/2023 09/11/2023 10:29 AM NEEDLE LOOM WEAVER COVID-19 Rule Out 03/18/2024 03/18/2024 03/18/2024 8:30 PM CDT COVID-19 Rule Out 05/27/2024 05/27/2024 05/27/2024 7:16 PM CDT documented as of this encounter Care Teams International Student Counselor Relationship Specialty Start Date End Date None, Provider, PCP - General 03/25/20 05/14/20 [place] [address] [place] [address] PCP - General FAMILY PRACTICE 05/15/20 documented as of this encounter
--- OUTSIDE RECORDS SUMMARY | 2025-03-30 10:05 | XMS_ITS | Encounter Summary ---
Author Organization [facility] Address [address] [place] [address] Care Team Providers Care Tool Hardener Name Role Phone Nestor Fletcher MD Primary Care Provider [phone] Encounter Details Date Type Department Care Team (Late st Contact Info) Description 04/07/2022 [employer] Message Enc [facility] Medical Group Family & Internal Medicine [address] [address] Nestor Fletcher MD [address] [place] [address] Dehydration Social History Tobacco Use Types Packs/Day Years [...] Sex Assigned at Female 10/30/2019 8:35 AM GRAB DRIVER Legal Sex Female 10:55 PM CDT Gender Identity Female 10/30/2019 8:35 AM GRAB DRIVER Sexual Orientation Straight 10/30/2019 8: 35 AM GRAB DRIVER COVID-19 Exposure Response Date Recorded In the last 10 days, have yo u been in contact with someone who was confirmed or suspected to have Coronavirus/COVID-19? No / Unsure 04/05/2022 10:20 AM CDT documented as of this encounter [...] Description 04/03/2025 8:40 AM CDT Office Visit [facility] Medical Group Family & Internal Medicine - [place] [address] [place] [address] Nestor Fletcher MD [address] [place] [address] 08/26/2025 9:00 AM GRAB DRIVER Office Visit [facility] Medical Group Multispecialty Care - [address] [place] [address] Francisco Levi, DO [address] [place] [address] documented as of this encounter Visit Diagnoses Not on filedocumented in this encounter Additional Health Concerns Infection Onset Date Last Indicated Resolved Time COVID-19 Rule Out 05/20/2023 05/20/2023 05/20/2023 6:44 PM CDT COVID-19 Rule Out 09/11/2023 09/11/2023 09/11/2023 10:29 AM GRAB DRIVER COVID-19 Rule Out 03/18/2024 03/18/2024 03/18/2024 8:30 PM CDT COVID-19 Rule Out 05/27/2024 05/27/2024 05/27/2024 7:16 PM CDT Assessment Noted Time PHQ-9 Depression Total Score: 0 02/26/20 22 9:40 AM CDT documented as of this encounter Care Teams Tool Hardener Relationship Specialty [place] [address] [place] [address] PCP - General FAMILY PRACTICE 05/15/20 documented as of this encounter
--- OUTSIDE RECORDS SUMMARY | 2025-03-30 10:05 | XMS_ITS | Encounter Summary ---
Author Organization [facility] Address [address] [place] [address] Care Team Providers Care Harbor Tug Captain Name Role Phone Nestor Fletcher MD Primary Care Provider [phone] Encounter Details Date Type Department Care Team (Late st Contact Info) Description 11/23/2022 Hospital Orders Only [facility]patient [facility] [address] [place] [address] Shyann Doss, PT [address] [place] [address] Social History Tobacco Use Types Packs/Day Years [...] Sex Assigned at Female 10/30/2019 8:35 AM SPECIAL NEEDS NANNY Legal Sex Female 10:55 PM CDT Gender Identity Female 10/30/2019 8:35 AM SPECIAL NEEDS NANNY Sexual Orientation Straight 10/30/2019 8: 35 AM SPECIAL NEEDS NANNY COVID-19 Exposure Response Date Recorded In the last 10 days, have yo u been in contact with someone who was confirmed or suspected to have Coronavirus/COVID-19? No / Unsure 11/25/2022 10:59 AM CDT documented as of this encounter [...] AM CDT Office Visit [facility] Medical Group Family & Internal Medicine [facility] [address] [place] [address] [place] [id number] [place] [address] 08/26/2025 9:00 AM SPECIAL NEEDS NANNY Office Visit [facility] [address] [place] [address] Dagoberto LevishaheenDO [address] [place] [address] documented as of this encounter Goals Goal [...] Rule Out 09/11/2023 09/11/2023 09/11/2023 10:29 AM SPECIAL NEEDS NANNY COVID-19 Rule Out 03/18/2024 03/18/2024 03/18/2024 8:30 PM CDT COVID-19 Rule Out 05/27/2024 05/27/2024 05/27/2024 7:16 PM CDT Assessment Noted Time PHQ-9 Depression Total Score: 0 02/26/20 22 9:40 AM CDT documented as of this encounter Care Teams Harbor Tug Captain Relationship Specialty [place] [address] [place] [address] PCP - General FAMILY PRACTICE 05/15/20 documented as of this encounter
--- OUTSIDE RECORDS SUMMARY | 2025-03-30 10:05 | XMS_ITS | Encounter Summary ---
Author Organization [facility] Address [address] [place] [address] Care Team Providers Care Nurse Wound Name Role Phone Nestor Fletcher MD Primary Care Provider [phone] Encounter Details Date Type Department Care Team (Late st Contact Info) Description 06/17/2020 [employer] Message Enc [facility] Medical Group Multispecialty Care - [facility] [address] [place] [address] Francisco eLvi DO [address] [place] [address] RE: Question Social History Tobacco Use Types Packs/Day Years Used Date Smoking Tobacco: Former Cigarettes 0.5 29.7 1 991 - 05/15/2020 Smokeless Tobacco: Never Alcohol Use Standard Drinks/Week [...] Sex Assigned at Female 10/30/2019 8:35 AM FORENSIC SCIENTIST Legal Sex Female 10:55 PM CDT Gender Identity Female 10/30/2019 8:35 AM FORENSIC SCIENTIST Sexual Orientation Straight 10/30/2019 8: 35 AM FORENSIC SCIENTIST COVID-19 Exposure Response Date Recorded In the last month, have you been in contact with someone who was confirmed or suspected to have Coronavirus / COVID-19? No / Unsure 06/11/2020 8:58 AM CDT documented as of this encounter [...] Description 04/03/2025 8:40 AM CDT Office Visit [facility] Medical Group Family & Internal Medicine [facility] [address] [place] [address] Nestor Fletcher MD [address] [place] [address] 08/26/2025 9:00 AM FORENSIC SCIENTIST Office Visit [facility] Medical Group Multispecialty Care - [facility] [address] [place] [address] Francisco Levi DO [address] [place] [address] documented as of this encounter Visit Diagnoses Not on filedocumented in this encounter Additional Health Concerns Infection Onset Date Last Indicated Resolved Time COVID-19 Rule Out 06/26/2020 06/26/2020 06/27/2020 4:51 PM CDT COVID-19 Rule Out 07/06/2020 07/06/2020 07/08/2020 11:00 PM FORENSIC SCIENTIST COVID-19 Rule Out 07/09/2020 07/09/2020 07/12/2020 10:16 AM FORENSIC SCIENTIST COVID-19 Rule Out 11/14/2020 11/14/2020 11/15/2020 10:25 AM CDT COVID-19 Rule Out 01/05/2021 01/05/2021 01/05/2021 5:26 PM CDT COVID-19 Rule Out 12/02/2021 12/02/2021 12/02/2021 4:28 PM CDT COVID-19 Rule Out 05/20/2023 05/20/2023 05/20/2023 6:44 PM CDT COVID-19 Rule Out 09/11/2023 09/11/2023 09/11/2023 10:29 AM FORENSIC SCIENTIST COVID-19 Rule Out 03/18/2024 03/18/2024 03/18/2024 8:30 PM CDT COVID-19 Rule Out 05/27/2024 05/27/2024 05/27/2024 7:16 PM CDT documented as of this encounter Care Teams Nurse Wound Relationship Specialty [place] [address] [place] [address] PCP - General FAMILY PRACTICE 05/15/20 documented as of this encounter
--- OUTSIDE RECORDS SUMMARY | 2025-03-30 10:05 | XMS_ITS | Encounter Summary ---
Author Organization [facility] Address [address] [place] [address] Care Team Providers Care Sheep Herder Name Role Phone None, Provider Primary Care Provider Nestor Ma MD Primary Care Provider [phone] Encounter Details Date Type Department Care Team (Late st Contact Info) Description 05/14/2020 [employer] Message Enc [facility] Medical Group Family & Internal Medicine [facility] [address] [place] [address] Nestor Fletcher MD [address] [place] [address] RE: Question Social History Tobacco Use [...] Sex Assigned at Female 10/30/2019 8:35 AM DIRECTOR OF SECURITIES AND REAL ESTATE Legal Sex Female 10:55 PM CDT Gender Identity Female 10/30/2019 8:35 AM DIRECTOR OF SECURITIES AND REAL ESTATE Sexual Orientation Straight 10/30/2019 8: 35 AM DIRECTOR OF SECURITIES AND REAL ESTATE COVID-19 Exposure Response Date Recorded In the last month, have you been in contact with someone who was confirmed or suspected to have Coronavirus / COVID-19? No / Unsure 05/16/2020 6:39 PM CDT documented as of this encounter [...] Medical Group Family & Internal Medicine - [place] [address] [place] [address] Nestor Fletcher MD [address] [place] [address] 08/26/2025 9:00 AM DIRECTOR OF SECURITIES AND REAL ESTATE Office Visit [facility] Medical Group Multispecialty Care - [address] [place] [address] Francisco Levi DO [address] [place] [address] documented as of this encounter Visit Diagnoses Not on filedocumented in this encounter Additional Health Concerns Infection Onset Date Last Indicated Resolved Time COVID-19 Rule Out 05/15/2020 05/15/2020 05/16/2020 8:21 PM CDT COVID-19 Rule Out 05/25/2020 05/25/2020 05/27/2020 12:21 AM CDT COVID-19 Rule Out 06/26/2020 06/26/2020 06/27/2020 4:51 PM CDT COVID-19 Rule Out 07/06/2020 07/06/2020 07/08/2020 11:00 PM DIRECTOR OF SECURITIES AND REAL ESTATE COVID-19 Rule Out 07/09/2020 07/09/2020 07/12/2020 10:16 AM DIRECTOR OF SECURITIES AND REAL ESTATE COVID-19 Rule Out 11/14/2020 11/14/2020 11/15/2020 10:25 AM CDT COVID-19 Rule Out 01/05/2021 01/05/2021 01/05/2021 5:26 PM CDT COVID-19 Rule Out 12/02/2021 12/02/2021 12/02/2021 4:28 PM CDT COVID-19 Rule Out 05/20/2023 05/20/2023 05/20/2023 6:44 PM CDT COVID-19 Rule Out 09/11/2023 09/11/2023 09/11/2023 10:29 AM DIRECTOR OF SECURITIES AND REAL ESTATE COVID-19 Rule Out 03/18/2024 03/18/2024 03/18/2024 8:30 PM CDT COVID-19 Rule Out 05/27/2024 05/27/2024 05/27/2024 7:16 PM CDT documented as of this encounter Care Teams Sheep Herder Relationship Specialty Start Date End Date None, Provider, PCP - General 03/25/20 05/14/20 [place] [address] [place] [address] PCP - General FAMILY PRACTICE 05/15/20 documented as of this encounter
--- OUTSIDE RECORDS SUMMARY | 2025-03-30 10:05 | XMS_ITS | Encounter Summary ---
Author Organization [facility] Address [address] [place] [address] Care Team Providers Care Master Planner Name Role Phone Nestor Fletcher MD Primary Care Provider [phone] Encounter Details Date Type Department Care Team (Late st Contact Info) Description 07/04/2020 [facility] [facility] [address] [place] [address] [place] [address] [place] [address] Test Results Social History Tobacco Use Types [...] Sex Assigned at Female 10/30/2019 8:35 AM INSERTER Legal Sex Female 10:55 PM CDT Gender Identity Female 10/30/2019 8:35 AM INSERTER Sexual Orientation Straight 10/30/2019 8: 35 AM INSERTER COVID-19 Exposure Response Date Recorded In the last month, have you been in contact with someone who was confirmed or suspected to have Coronavirus / COVID-19? No / Unsure 07/02/2020 7:54 AM CDT documented as of this encounter [...] Author Status No 03/31/2020 2:12 AM CDT Kelyl Hayes RN Active * Do you have [...] documented in this encounter Progress Notes * Essie Tavera MA - 07/06/2020 3:45 PM CST Was addressed at video visit w/Natali RTER documented in this encounter Plan of Treatment Upcoming Encounters Date Type Department Care Team (Late st Contact Info) Description 04/03/2025 8:40 AM CDT Office Visit [facility] Medical Group Family & Internal Medicine [facility] [address] [place] [address] [place] [address] [place] [address] 08/26/2025 9:00 AM INSERTER Office Visit [facility] Medical Group Multispecialty Care - [facility] [address] [place] [address] Levi FranciscoDO [address] [place] [address] documented as of this encounter Visit Diagnoses Not on filedocumented in this encounter Additional Health Concerns Infection Onset Date Last Indicated Resolved Time COVID-19 Rule Out 07/06/2020 07/06/2020 07/08/2020 11:00 PM INSERTER COVID-19 Rule Out 07/09/2020 07/09/2020 07/12/2020 10:16 AM INSERTER COVID-19 Rule Out 11/14/2020 11/14/2020 11/15/2020 10:25 AM CDT COVID-19 Rule Out 01/05/2021 01/05/2021 01/05/2021 5:26 PM CDT COVID-19 Rule Out 12/02/2021 12/02/2021 12/02/2021 4:28 PM CDT COVID-19 Rule Out 05/20/2023 05/20/2023 05/20/2023 6:44 PM CDT COVID-19 Rule Out 09/11/2023 09/11/2023 09/11/2023 10:29 AM INSERTER COVID-19 Rule Out 03/18/2024 03/18/2024 03/18/2024 8:30 PM CDT COVID-19 Rule Out 05/27/2024 05/27/2024 05/27/2024 7:16 PM CDT documented as of this encounter Care Teams Master Planner Relationship Specialty [place] [address] [place] [address] PCP - General FAMILY PRACTICE 05/15/20 documented as of this encounter
--- OUTSIDE RECORDS SUMMARY | 2025-03-30 10:05 | XMS_ITS | Encounter Summary ---
Author Organization [facility] Address [address] [place] [address] Care Team Providers Care Conservation Of Resources Commissioner Name Role Phone Nestor Fletcher MD Primary Care Provider [phone] Encounter Details Date Type Department Care Team (Late st Contact Info) Description 10/24/2022 [employer] Message Enc [facility] Medical Group Family & Internal Medicine [address] [address] Nestor Fletcher MD [address] [place] [address] Right hip injection Social History Tobacco Use Types Packs/Day Years [...] Sex Assigned at Female 10/30/2019 8:35 AM HORSE STUD WORKER Legal Sex Female 10:55 PM CDT Gender Identity Female 10/30/2019 8:35 AM HORSE STUD WORKER Sexual Orientation Straight 10/30/2019 8: 35 AM HORSE STUD WORKER COVID-19 Exposure Response Date Recorded In the last 10 days, have yo u been in contact with someone who was confirmed or suspected to have Coronavirus/COVID-19? No / Unsure 10/20/2022 1:50 PM HORSE STUD WORKER documented as of this encounter Functional Status [...] Description 04/03/2025 8:40 AM CDT Office Visit [facility] Medical [facility] Family & Internal Medicine [facility] [address] [place] [address] Nestor Fletcher MD [address] [place] [address] 08/26/2025 9:00 AM HORSE STUD WORKER [facility] [address] [place] [address] Gurmeet FranciscoDO [address] [place] [address] documented as of this encounter Goals Goal [...] Rule Out 09/11/2023 09/11/2023 09/11/2023 10:29 AM HORSE STUD WORKER COVID-19 Rule Out 03/18/2024 03/18/2024 03/18/2024 8:30 PM CDT COVID-19 Rule Out 05/27/2024 05/27/2024 05/27/2024 7:16 PM CDT Assessment Noted Time PHQ-9 Depression Total Score: 0 02/26/20 22 9:40 AM CDT documented as of this encounter Care Teams Conservation Of Resources Commissioner Relationship Specialty [place] [address] [place] [address] PCP - General FAMILY PRACTICE 05/15/20 documented as of this encounter
--- OUTSIDE RECORDS SUMMARY | 2025-03-30 10:05 | XMS_ITS | Encounter Summary ---
Author Organization [facility] Address [address] [place] [address] Care Team Providers Care Press Pipe Inspector Name Role Phone Nestor Fletcher MD Primary Care Provider [phone] Encounter Details Date Type Department Care Team (Late st Contact Info) Description 06/30/2020 [employer] Message Enc [facility] Medical Group Multispecialty Care - [facility] [address] [place] [address] Francisco Levi DO [address] [place] [address] RE: Question Social History Tobacco Use Types [...] Sex Assigned at Female 10/30/2019 8:35 AM PROCEDURE TECH Legal Sex Female 10:55 PM CDT Gender Identity Female 10/30/2019 8:35 AM PROCEDURE TECH Sexual Orientation Straight 10/30/2019 8: 35 AM PROCEDURE TECH COVID-19 Exposure Response Date Recorded In the [...] 8:40 AM CDT Office Visit [facility] Medical Group Family & Internal Medicine [facility] [address] [place] [address] Nestor Fletcher MD [address] [place] [address] 08/26/2025 9:00 AM PROCEDURE TECH Office Visit [facility] Medical Group Multispecialty Care - [facility] [address] [place] [address] Francisco Levi DO [address] [place] [address] documented as of this encounter Visit Diagnoses Not on filedocumented in this encounter Additional Health Concerns Infection Onset Date Last Indicated Resolved Time COVID-19 Rule Out 07/06/2020 07/06/2020 07/08/2020 11:00 PM PROCEDURE TECH COVID-19 Rule Out 07/09/2020 07/09/2020 07/12/2020 10:16 AM PROCEDURE TECH COVID-19 Rule Out 11/14/2020 11/14/2020 11/15/2020 10:25 AM CDT COVID-19 Rule Out 01/05/2021 01/05/2021 01/05/2021 5:26 PM CDT COVID-19 Rule Out 12/02/2021 12/02/2021 12/02/2021 4:28 PM CDT COVID-19 Rule Out 05/20/2023 05/20/2023 05/20/2023 6:44 PM CDT COVID-19 Rule Out 09/11/2023 09/11/2023 09/11/2023 10:29 AM PROCEDURE TECH COVID-19 Rule Out 03/18/2024 03/18/2024 03/18/2024 8:30 PM CDT COVID-19 Rule Out 05/27/2024 05/27/2024 05/27/2024 7:16 PM CDT documented as of this encounter Care Teams Press Pipe Inspector Relationship Specialty [place] [address] [place] [address] PCP - General FAMILY PRACTICE 05/15/20 documented as of this encounter
--- OUTSIDE RECORDS SUMMARY | 2025-03-30 10:05 | XMS_ITS | Encounter Summary ---
Author Organization [facility] Address [address] [place] [address] Care Team Providers Care Ambulance Attendant Name Role Phone Nestor Fletcher MD Primary Care Provider [phone] Encounter Details Date Type Department Care Team (Late st Contact Info) Description 06/10/2020 [employer] Message Enc [facility] Medical Group General Surgery - [place] [address] [place] [address] [place] [address] [facility] [[email or web address] [address] [place] [address] Question Social History Tobacco Use Types Packs/Day [...] Sex Assigned at Female 10/30/2019 8:35 AM PUZZLE ASSEMBLER Legal Sex Female 10:55 PM CDT Gender Identity Female 10/30/2019 8:35 AM PUZZLE ASSEMBLER Sexual Orientation Straight 10/30/2019 8: 35 AM PUZZLE ASSEMBLER COVID-19 Exposure Response Date Recorded In the [...] Medical Group Family & Internal Medicine - [place] [address] [place] [address] Nestor Fletcher MD [address] [place] [address] 08/26/2025 9:00 AM PUZZLE ASSEMBLER Office Visit [facility] Medical Group Multispecialty Care - [address] [place] [address] Francisco Levi, DO [address] [place] [address] documented as of this encounter Visit Diagnoses Not on filedocumented in this encounter Additional Health Concerns Infection Onset Date Last Indicated Resolved Time COVID-19 Rule Out 06/26/2020 06/26/2020 06/27/2020 4:51 PM CDT COVID-19 Rule Out 07/06/2020 07/06/2020 07/08/2020 11:00 PM PUZZLE ASSEMBLER COVID-19 Rule Out 07/09/2020 07/09/2020 07/12/2020 10:16 AM PUZZLE ASSEMBLER COVID-19 Rule Out 11/14/2020 11/14/2020 11/15/2020 10:25 AM CDT COVID-19 Rule Out 01/05/2021 01/05/2021 01/05/2021 5:26 PM CDT COVID-19 Rule Out 12/02/2021 12/02/2021 12/02/2021 4:28 PM CDT COVID-19 Rule Out 05/20/2023 05/20/2023 05/20/2023 6:44 PM CDT COVID-19 Rule Out 09/11/2023 09/11/2023 09/11/2023 10:29 AM PUZZLE ASSEMBLER COVID-19 Rule Out 03/18/2024 03/18/2024 03/18/2024 8:30 PM CDT COVID-19 Rule Out 05/27/2024 05/27/2024 05/27/2024 7:16 PM CDT documented as of this encounter Care Teams Ambulance Attendant Relationship Specialty [place] [address] [place] [address] PCP - General FAMILY PRACTICE 05/15/20 documented as of this encounter
--- OUTSIDE RECORDS SUMMARY | 2025-03-30 10:05 | XMS_ITS | Encounter Summary ---
Author Organization [facility] Address [address] [place] [address] Care Team Providers Care Research Interviewer Name Role Phone Nestor Fletcher MD Primary Care Provider [phone] Encounter Details Date Type Department Care Team (Late st Contact Info) Description 06/02/2020 AVIcode Message Enc [facility] Medical Group Family & Internal Medicine [address] [address] Nestor Fletcher MD [address] [place] [address] RE: Question Social History Tobacco Use [...] Sex Assigned at Female 10/30/2019 8:35 AM C D STRIPPER Legal Sex Female 10:55 PM CDT Gender Identity Female 10/30/2019 8:35 AM C D STRIPPER Sexual Orientation Straight 10/30/2019 8: 35 AM C D STRIPPER COVID-19 Exposure Response Date Recorded In the last month, have you been in contact with someone who was confirmed or suspected to have Coronavirus / COVID-19? No / Unsure 06/01/2020 1:33 PM CDT documented as of this encounter [...] Description 04/03/2025 8:40 AM CDT Office Visit [facility] Medical Group Family & Internal Medicine - [place] [address] [place] [address] Nestor Fletcher MD [address] [place] [address] 08/26/2025 9:00 AM C D STRIPPER Office Visit [facility] Multispecialty Care - [address], [address] [place] [address] Francisco Levi [address] [place] [address] documented as of this encounter Visit Diagnoses Not on filedocumented in this encounter Additional Health Concerns Infection Onset Date Last Indicated Resolved Time COVID-19 Rule Out 06/26/2020 06/26/2020 06/27/2020 4:51 PM CDT COVID-19 Rule Out 07/06/2020 07/06/2020 07/08/2020 11:00 PM C D STRIPPER COVID-19 Rule Out 07/09/2020 07/09/2020 07/12/2020 10:16 AM C D STRIPPER COVID-19 Rule Out 11/14/2020 11/14/2020 11/15/2020 10:25 AM CDT COVID-19 Rule Out 01/05/2021 01/05/2021 01/05/2021 5:26 PM CDT COVID-19 Rule Out 12/02/2021 12/02/2021 12/02/2021 4:28 PM CDT COVID-19 Rule Out 05/20/2023 05/20/2023 05/20/2023 6:44 PM CDT COVID-19 Rule Out 09/11/2023 09/11/2023 09/11/2023 10:29 AM C D STRIPPER COVID-19 Rule Out 03/18/2024 03/18/2024 03/18/2024 8:30 PM CDT COVID-19 Rule Out 05/27/2024 05/27/2024 05/27/2024 7:16 PM CDT documented as of this encounter Care Teams Research Interviewer Relationship Specialty [place] [address] [place] [address] PCP - General FAMILY PRACTICE 05/15/20 documented as of this encounter
--- OUTSIDE RECORDS SUMMARY | 2025-03-30 10:05 | XMS_ITS | Encounter Summary ---
Author Organization [facility] Address [address] [place] [address] Care Team Providers Care Dental Equipment Installer And Servicer Name Role Phone Nestor Fletcher MD Primary Care Provider [phone] Encounter Details Date Type Department Care Team (Late st Contact Info) Description 05/04/2022 Iconicfuture Message Enc [facility] Medical Group Family & Internal Medicine [address] [address] Nestor Fletcher MD [address] [place] [address] Neck Social History Tobacco Use Types Packs/Day Years [...] Sex Assigned at Female 10/30/2019 8:35 AM SHIPPING ASSOCIATE Legal Sex Female 10:55 PM CDT Gender Identity Female 10/30/2019 8:35 AM SHIPPING ASSOCIATE Sexual Orientation Straight 10/30/2019 8: 35 AM SHIPPING ASSOCIATE COVID-19 Exposure Response Date Recorded In the last 10 days, have yo u been in contact with someone who was confirmed or suspected to have Coronavirus/COVID-19? No / Unsure 04/25/2022 9:36 AM CDT documented as of this encounter [...] Description 04/03/2025 8:40 AM CDT Office Visit [facility] Medical Group Family & Internal Medicine - [place] [address] [place] [address] Nestor Fletcher MD [address] [place] [address] 08/26/2025 9:00 AM SHIPPING ASSOCIATE Office Visit [facility] Medical Group Multispecialty Care - [address] [place] [address] Francisco Levi, DO [address] [place] [address] documented as of this encounter Visit Diagnoses Not on filedocumented in this encounter Additional Health Concerns Infection Onset Date Last Indicated Resolved Time COVID-19 Rule Out 05/20/2023 05/20/2023 05/20/2023 6:44 PM CDT COVID-19 Rule Out 09/11/2023 09/11/2023 09/11/2023 10:29 AM SHIPPING ASSOCIATE COVID-19 Rule Out 03/18/2024 03/18/2024 03/18/2024 8:30 PM CDT COVID-19 Rule Out 05/27/2024 05/27/2024 05/27/2024 7:16 PM CDT Assessment Noted Time PHQ-9 Depression Total Score: 0 02/26/20 22 9:40 AM CDT documented as of this encounter Care Teams Dental Equipment Installer And Servicer Relationship Specialty [place] [address] [place] [address] PCP - General FAMILY PRACTICE 05/15/20 documented as of this encounter
--- OUTSIDE RECORDS SUMMARY | 2025-03-30 10:05 | XMS_ITS | Encounter Summary ---
Author Organization [facility] Address [address] [place] [address] Care Team Providers Care Retail Analytics Manager Name Role Phone Nestor Fletcher MD Primary Care Provider [phone] Encounter Details Date Type Department Care Team (Late st Contact Info) Description 06/17/2020 angelMD Message Enc [facility] Medical Group Family & Internal Medicine [address] [address] Nestor Fletcher MD [address] [place] [address] RE: Question Social History Tobacco Use [...] Sex Assigned at Female 10/30/2019 8:35 AM CRYOGENICS REPAIRER Legal Sex Female 10:55 PM CDT Gender Identity Female 10/30/2019 8:35 AM CRYOGENICS REPAIRER Sexual Orientation Straight 10/30/2019 8: 35 AM CRYOGENICS REPAIRER COVID-19 Exposure Response Date Recorded In [...] 04/03/2025 8:40 AM CDT Office Visit [facility] Medical Group Family & Internal Medicine - [place] [address] [place] [address] Nestor Fletcher MD [address] [place] [address] 08/26/2025 9:00 AM CRYOGENICS REPAIRER Office Visit [facility] Multispecialty Care - [address], [address] [place] [address] Francisco Levi [address] [place] [address] documented as of this encounter Visit Diagnoses Not on filedocumented in this encounter Additional Health Concerns Infection Onset Date Last Indicated Resolved Time COVID-19 Rule Out 06/26/2020 06/26/2020 06/27/2020 4:51 PM CDT COVID-19 Rule Out 07/06/2020 07/06/2020 07/08/2020 11:00 PM CRYOGENICS REPAIRER COVID-19 Rule Out 07/09/2020 07/09/2020 07/12/2020 10:16 AM CRYOGENICS REPAIRER COVID-19 Rule Out 11/14/2020 11/14/2020 11/15/2020 10:25 AM CDT COVID-19 Rule Out 01/05/2021 01/05/2021 01/05/2021 5:26 PM CDT COVID-19 Rule Out 12/02/2021 12/02/2021 12/02/2021 4:28 PM CDT COVID-19 Rule Out 05/20/2023 05/20/2023 05/20/2023 6:44 PM CDT COVID-19 Rule Out 09/11/2023 09/11/2023 09/11/2023 10:29 AM CRYOGENICS REPAIRER COVID-19 Rule Out 03/18/2024 03/18/2024 03/18/2024 8:30 PM CDT COVID-19 Rule Out 05/27/2024 05/27/2024 05/27/2024 7:16 PM CDT documented as of this encounter Care Teams Retail Analytics Manager Relationship Specialty [place] [address] [place] [address] PCP - General FAMILY PRACTICE 05/15/20 documented as of this encounter
--- OUTSIDE RECORDS SUMMARY | 2025-03-30 10:05 | XMS_ITS | Encounter Summary ---
Author Organization [facility] Address [address] [place] [address] Care Team Providers Care Community Facilitator Name Role Phone Nestor Fletcher MD Primary Care Provider [phone] Encounter Details Date Type Department Care Team (Late st Contact Info) Description 07/31/2020 Axis Systems Message [facility] [address] Cullen Sprague MD [address] [address] RE: Question Social History Tobacco Use Types [...] Sex Assigned at Female 10/30/2019 8:35 AM LETTERSET PRESS SET UP OPERATOR Legal Sex Female 10:55 PM CDT Gender Identity Female 10/30/2019 8:35 AM LETTERSET PRESS SET UP OPERATOR Sexual Orientation Straight 10/30/2019 8: 35 AM LETTERSET PRESS SET UP OPERATOR COVID-19 Exposure Response Date Recorded In the last month, have you been in contact with someone who was confirmed or suspected to have Coronavirus / COVID-19? No / Unsure 07/21/2020 10:16 AM LETTERSET PRESS SET UP OPERATOR documented as of this encounter Functional [...] documented in this encounter Progress Notes * Vee Eddy RN - 08/03/2020 11:12 AM CST See below ERSET PRESS SET UP OPERATOR * Vee Eddy RN - 08/03/2020 8:39 AM CST Please advise ERSET PRESS SET UP OPERATOR documented in this encounter Plan of Treatment Upcoming Encounters Date Type Department Care Team (Late st Contact Info) Description 04/03/2025 8:40 AM CDT Office Visit [facility] Family & Internal Medicine [facility] [address] [place] [address] [place] [address] [place] [address] 08/26/2025 9:00 AM LETTERSET PRESS SET UP OPERATOR Office Visit [facility] Multispecialty Care - [facility] [address] [place] [address] Francisco Levi DO [address] [place] [address] documented as of this encounter Visit Diagnoses Not on filedocumented in this encounter Additional Health Concerns Infection Onset Date Last Indicated Resolved Time COVID-19 Rule Out 11/14/2020 11/14/2020 11/15/2020 10:25 AM CDT COVID-19 Rule Out 01/05/2021 01/05/2021 01/05/2021 5:26 PM CDT COVID-19 Rule Out 12/02/2021 12/02/2021 12/02/2021 4:28 PM CDT COVID-19 Rule Out 05/20/2023 05/20/2023 05/20/2023 6:44 PM CDT COVID-19 Rule Out 09/11/2023 09/11/2023 09/11/2023 10:29 AM LETTERSET PRESS SET UP OPERATOR COVID-19 Rule Out 03/18/2024 03/18/2024 03/18/2024 8:30 PM CDT COVID-19 Rule Out 05/27/2024 05/27/2024 05/27/2024 7:16 PM CDT documented as of this encounter Care Teams Community Facilitator Relationship Specialty [place] [address] [place] [address] PCP - General FAMILY PRACTICE 05/15/20 documented as of this encounter
--- OUTSIDE RECORDS SUMMARY | 2025-03-30 10:05 | XMS_ITS | Encounter Summary ---
Author Organization [facility] Address [address] [place] [address] Care Team Providers Care Junior Network Engineer Name Role Phone Nestor Fletcher MD Primary Care Provider [phone] Encounter Details Date Type Department Care Team (Late st Contact Info) Description 08/12/2020 [employer] Message Enc [facility] Medical Group General Surgery - [facility] [address] [facility] [address], [address] [place] [address] [place] [address] [facility] [address] [place] [address] Question Social History Tobacco Use Types Packs/Day [...] Sex Assigned at Female 10/30/2019 8:35 AM MARINE FARMER Legal Sex Female 10:55 PM CDT Gender Identity Female 10/30/2019 8:35 AM MARINE FARMER Sexual Orientation Straight 10/30/2019 8: 35 AM MARINE FARMER COVID-19 Exposure Response Date Recorded In the last month, have you been in contact with someone who was confirmed or suspected to have Coronavirus / COVID-19? No / Unsure 08/15/2020 10:21 PM MARINE FARMER documented as of this encounter Functional Status [...] Office Visit [facility] Medical Group Family & Internal Medicine - [place] [address] [place] [address] Nestor Fletcher MD [address] [place] [address] 08/26/2025 9:00 AM MARINE FARMER Office Visit [facility] Medical Group Multispecialty Care - [address] [place] [address] Francisco Levi, DO [address] [place] [address] documented as of this encounter Visit Diagnoses [...] Rule Out 09/11/2023 09/11/2023 09/11/2023 10:29 AM MARINE FARMER COVID-19 Rule Out 03/18/2024 03/18/2024 03/18/2024 8:30 PM CDT COVID-19 Rule Out 05/27/2024 05/27/2024 05/27/2024 7:16 PM CDT documented as of this encounter Care Teams Junior Network Engineer Relationship Specialty [place] [address] [place] [address] PCP - General FAMILY PRACTICE 05/15/20 documented as of this encounter
--- OUTSIDE RECORDS SUMMARY | 2025-03-30 10:05 | XMS_ITS | Encounter Summary ---
Author Organization [facility] Address [address] [place] [address] Care Team Providers Care Supervisor Electronics Testing Name Role Phone Nestor Fletcher MD Primary Care Provider [phone] Encounter Details Date Type Department Care Team (Late st Contact Info) Description 06/03/2022 GoodBellyt Message Enc [facility] Medical Group Multispecialty Care - [facility] [address] [facility] [facility], [address] [place] [address] Eusebio Ron MD 3 [place] [address] Surgery Social History Tobacco Use Types Packs/Day [...] Sex Assigned at Female 10/30/2019 8:35 AM DRYWALL APPLICATOR Legal Sex Female 10:55 PM CDT Gender Identity Female 10/30/2019 8:35 AM DRYWALL APPLICATOR Sexual Orientation Straight 10/30/2019 8: 35 AM DRYWALL APPLICATOR COVID-19 Exposure Response Date Recorded In the last 10 days, have marielos u been in contact with someone who was confirmed or suspected to have Coronavirus/COVID-19? No / Unsure 06/06/2022 5:15 AM CDT documented as of this encounter Functional Status * Question Answer Date of Assessment Author Status Do you have serious difficulty walking or climbing stairs? No 06/06/2022 12:00 PM CDT Georgia Lovell RN Active * Question Answer Date of Assessment Author Status Do you have difficulty dressing or bathing? No 06/06/2022 12:00 PM CINTHYAT Georgia Lovell RN Active Because of a physical, mental, or emotional condition, do you have difficulty doing errands alone such as visiting a doctor's office or shopping? No 06/06/2022 12:00 PM CDT Georgia Lovell RN A ctive * RETIRED Are you deaf or do [...] of Assessment Author Status No Risk Indicated 06/06/2022 6:47 AM CDT Hernandez, Jennif er I, RN Active * [place] Suicide Severity Rating Scale (Screener/Recent Self-Report) Question Answer Date of Assessment Author Status 1. Wish to be (Past 1 Month) No 06/06/2022 6:47 AM CDT Renu Hernandez RN Act bryon 2. Non-Specific Active Suicidal Thoughts (Past 1 Month) No 06/06/2022 6:47 AM CINTHYAT Renu Hernandez RN Act bryon 6. Suicidal Behavior (Lifetime) No 06/06/2022 6:47 AM CDT Renu Hernandez RN Act bryon documented as of this encounter Mental Status * Question Answer Entry Date Author Status Because of a physical, mental, or emotional condition, do you have serious difficulty concentrating, remembering, or making decisions? No 06/06/2022 12:00 PM CDT Georgia Lovell [...] Medical Group Family & Internal Medicine - [place] [address] [place] [address] [place] [address] [place], [place] [address] 08/26/2025 9:00 AM DRYWALL APPLICATOR Office Visit [facility] Multispecialty Care - [facility] [address] [place] [phone] Francisco Levi DO [address] [facility] [address] [place] [address] documented as of this encounter Visit Diagnoses Not on filedocumented in this encounter Additional Health Concerns Infection Onset Date Last Indicated Resolved Time COVID-19 Rule Out 05/20/2023 05/20/2023 05/20/2023 6:44 PM CDT COVID-19 Rule Out 09/11/2023 09/11/2023 09/11/2023 10:29 AM DRYWALL APPLICATOR COVID-19 Rule Out 03/18/2024 03/18/2024 03/18/2024 8:30 PM CDT COVID-19 Rule Out 05/27/2024 05/27/2024 05/27/2024 7:16 PM CDT Assessment Noted Time PHQ-9 Depression Total Score: 0 02/26/20 22 9:40 AM CDT documented as of this encounter Care Teams Supervisor Electronics Testing Relationship Specialty [place] [address] [place] [address] PCP - General FAMILY PRACTICE 05/15/20 documented as of this encounter
--- OUTSIDE RECORDS SUMMARY | 2025-03-30 10:05 | XMS_ITS | Encounter Summary ---
Author Organization [facility] Address [facility] [place] [address] Care Team Providers Care Occupational Hygienist Name Role Phone None, Provider Primary Care Provider Nestor Ma MD Primary Care Provider [phone] Encounter Details Date Type Department Care Team (Late st Contact Info) Description 05/13/2020 Wolf Pyros Picturest Message Enc [facility] Medical Group General Surgery - [place] [address], [address] [place] [address] [place] [address] [address] [address] [place] [address] RE: Medication Questions Social History Tobacco Use [...] Sex Assigned at Female 10/30/2019 8:35 AM FINANCIAL EXAMINER Legal Sex Female 10:55 PM CDT Gender Identity Female 10/30/2019 8:35 AM FINANCIAL EXAMINER Sexual Orientation Straight 10/30/2019 8: 35 AM FINANCIAL EXAMINER COVID-19 Exposure Response Date Recorded In the [...] Description 04/03/2025 8:40 AM CDT Office Visit [facility] Medical Group Family & Internal Medicine [facility] [address] [place] [address] [place] Fletcher [place] [id number] [place] [address] 08/26/2025 9:00 AM FINANCIAL EXAMINER Office Visit [facility] Medical [facility] Multispecialty [address] [place] [address] Francisco Levi DO [address] [place] [address] documented as of this encounter Visit Diagnoses Not on filedocumented in this encounter Additional Health Concerns Infection Onset Date Last Indicated Resolved Time COVID-19 Rule Out 05/15/2020 05/15/2020 05/16/2020 8:21 PM CDT COVID-19 Rule Out 05/25/2020 05/25/2020 05/27/2020 12:21 AM CDT COVID-19 Rule Out 06/26/2020 06/26/2020 06/27/2020 4:51 PM CDT COVID-19 Rule Out 07/06/2020 07/06/2020 07/08/2020 11:00 PM FINANCIAL EXAMINER COVID-19 Rule Out 07/09/2020 07/09/2020 07/12/2020 10:16 AM FINANCIAL EXAMINER COVID-19 Rule Out 11/14/2020 11/14/2020 11/15/2020 10:25 AM CDT COVID-19 Rule Out 01/05/2021 01/05/2021 01/05/2021 5:26 PM CDT COVID-19 Rule Out 12/02/2021 12/02/2021 12/02/2021 4:28 PM CDT COVID-19 Rule Out 05/20/2023 05/20/2023 05/20/2023 6:44 PM CDT COVID-19 Rule Out 09/11/2023 09/11/2023 09/11/2023 10:29 AM FINANCIAL EXAMINER COVID-19 Rule Out 03/18/2024 03/18/2024 03/18/2024 8:30 PM CDT COVID-19 Rule Out 05/27/2024 05/27/2024 05/27/2024 7:16 PM CDT documented as of this encounter Care Teams Occupational Hygienist Relationship Specialty Start Date End Date None, Provider, PCP - General 03/25/20 05/14/20 [place] [address] [place] [address] PCP - General FAMILY PRACTICE 05/15/20 documented as of this encounter
--- OUTSIDE RECORDS SUMMARY | 2025-03-30 10:05 | XMS_ITS | Encounter Summary ---
Author Organization [facility] Address [address] [place] [address] Care Team Providers Care Type Proof Reproducer Name Role Phone Nestor Fletcher MD Primary Care Provider [phone] Encounter Details Date Type Department Care Team (Late st Contact Info) Description 09/29/2020 [place] Message Enc [facility] Medical Group Family & Internal Medicine [facility] [address] [place] [address] Natali Polo APNP [address] [facility] [address] [place] [address] RE: Question Social History Tobacco Use [...] Sex Assigned at Female 10/30/2019 8:35 AM INSTRUCTION LIBRARIAN Legal Sex Female 10:55 PM CDT Gender Identity Female 10/30/2019 8:35 AM INSTRUCTION LIBRARIAN Sexual Orientation Straight 10/30/2019 8: 35 AM INSTRUCTION LIBRARIAN documented as of this encounter Functional Status [...] Description 04/03/2025 8:40 AM CDT Office Visit [facility] Family & Internal Medicine [address] [address] Nestor Fletcher MD [address] [place] [address] 08/26/2025 9:00 AM INSTRUCTION LIBRARIAN Office Visit [facility] Multispecialty Care - [facility] [address] [facility] [place] [address] Francisco Levi DO [address] [facility] [address] [place] [address] documented as of this encounter Visit Diagnoses [...] Rule Out 09/11/2023 09/11/2023 09/11/2023 10:29 AM INSTRUCTION LIBRARIAN COVID-19 Rule Out 03/18/2024 03/18/2024 03/18/2024 8:30 PM CDT COVID-19 Rule Out 05/27/2024 05/27/2024 05/27/2024 7:16 PM CDT documented as of this encounter Care Teams Type Proof Reproducer Relationship Specialty [place] [address] [place] [address] PCP - General FAMILY PRACTICE 05/15/20 documented as of this encounter
--- OUTSIDE RECORDS SUMMARY | 2025-03-30 10:05 | XMS_ITS | Encounter Summary ---
Author Organization [facility] Address [address] [place] [address] Care Team Providers Care Adult Basic Education Instructor Name Role Phone Nestor Fletcher MD Primary Care Provider [phone] Encounter Details Date Type Department Care Team (Late st Contact Info) Description 05/13/2022 Poikost Message Enc [facility] Medical Group Multispecialty Care - [facility] [address] [facility], [address] [place] [address] Eusebio Ron MD 3 [place] [address] Bone stimulator Social History Tobacco Use Types Packs/Day Years [...] Sex Assigned at Female 10/30/2019 8:35 AM CANDY CUTTER MACHINE Legal Sex Female 10:55 PM CDT Gender Identity Female 10/30/2019 8:35 AM CANDY CUTTER MACHINE Sexual Orientation Straight 10/30/2019 8: 35 AM CANDY CUTTER MACHINE COVID-19 Exposure Response Date Recorded In the last 10 days, have marielos valladares been in contact with someone who was confirmed or suspected to have Coronavirus/COVID-19? No / Unsure 05/16/2022 10:20 AM CDT documented as of this [...] Description 04/03/2025 8:40 AM CDT Office Visit [facility] Medical Group Family & Internal Medicine [facility] [address] [place] [address] Nestor Fletcher [place] [id number] [place] [address] 08/26/2025 9:00 AM CANDY CUTTER MACHINE Office Visit [facility] Medical Group Multispecialty Care - [facility] [address] [place] [address] Francisco Levi DO [address] [place] [address] documented as of this encounter Visit Diagnoses Not on filedocumented in this encounter Additional Health Concerns Infection Onset Date Last Indicated Resolved Time COVID-19 Rule Out 05/20/2023 05/20/2023 05/20/2023 6:44 PM CDT COVID-19 Rule Out 09/11/2023 09/11/2023 09/11/2023 10:29 AM CANDY CUTTER MACHINE COVID-19 Rule Out 03/18/2024 03/18/2024 03/18/2024 8:30 PM CDT COVID-19 Rule Out 05/27/2024 05/27/2024 05/27/2024 7:16 PM CDT Assessment Noted Time PHQ-9 Depression Total Score: 0 02/26/20 22 9:40 AM CDT documented as of this encounter Care Teams Adult Basic Education Instructor Relationship Specialty [place] [address] [place] [address] PCP - General FAMILY PRACTICE 05/15/20 documented as of this encounter
--- OUTSIDE RECORDS SUMMARY | 2025-03-30 10:05 | XMS_ITS | Encounter Summary ---
Author Organization [facility] Address [address] [place] [address] Care Team Providers Care Hand Glass Cutter Name Role Phone Nestor Fletcher MD Primary Care Provider [phone] Encounter Details Date Type Department Care Team (Latest Contact Info) Description 07/02/2020 Modac[employer] Message Enc [facility] Medical Group Multispecialty Care - [facility] [address] [place] [address] Francisco Levi DO [address] [facility] [address] [place] [address] RE: Medication Questions Social History Tobacco Use [...] Assigned at Female 10/30/2019 8:35 AM SENIOR INDUSTRIAL ENGINEER Legal Sex Female 10:55 PM CDT Gender Identity Female 10/30/2019 8:35 AM SENIOR INDUSTRIAL ENGINEER Sexual Orientation Straight 10/30/2019 8: 35 AM SENIOR INDUSTRIAL ENGINEER COVID-19 Exposure Response Date Recorded In [...] Description 04/03/2025 8:40 AM CDT Office Visit [facility] Medical Group Family & Internal Medicine [facility] [address] [place] [address] Nestor Fletcher MD [address] [place] [address] 08/26/2025 9:00 AM SENIOR INDUSTRIAL ENGINEER Office Visit [facility] Medical Group Multispecialty Care - [facility] [address] [place] [address] Francisco Levi DO [address] [place] [address] documented as of this encounter Visit Diagnoses Not on filedocumented in this encounter Additional Health Concerns Infection Onset Date Last Indicated Resolved Time COVID-19 Rule Out 07/06/2020 07/06/2020 07/08/2020 11:00 PM SENIOR INDUSTRIAL ENGINEER COVID-19 Rule Out 07/09/2020 07/09/2020 07/12/2020 10:16 AM SENIOR INDUSTRIAL ENGINEER COVID-19 Rule Out 11/14/2020 11/14/2020 11/15/2020 10:25 AM CDT COVID-19 Rule Out 01/05/2021 01/05/2021 01/05/2021 5:26 PM CDT COVID-19 Rule Out 12/02/2021 12/02/2021 12/02/2021 4:28 PM CDT COVID-19 Rule Out 05/20/2023 05/20/2023 05/20/2023 6:44 PM CDT COVID-19 Rule Out 09/11/2023 09/11/2023 09/11/2023 10:29 AM SENIOR INDUSTRIAL ENGINEER COVID-19 Rule Out 03/18/2024 03/18/2024 03/18/2024 8:30 PM CDT COVID-19 Rule Out 05/27/2024 05/27/2024 05/27/2024 7:16 PM CDT documented as of this encounter Care Teams Hand Glass Cutter Relationship Specialty [place] [address] [place] [address] PCP - General FAMILY PRACTICE 05/15/20 documented as of this encounter
--- OUTSIDE RECORDS SUMMARY | 2025-03-30 10:05 | XMS_ITS | Encounter Summary ---
Author Organization [facility] Address [address] [place] [address] Care Team Providers Care Cylinder Machine Operator Name Role Phone Nestor Fletcher MD Primary Care Provider [phone] Encounter Details Date Type Department Care Team (Late st Contact Info) Description 09/19/2020 Wingz Message Enc [facility] Medical Group Foot & Ankle Specialists [facility] [address] [place] [address] Carlos A Ocasio, ROSY [address] [place] [address] RE: Question Social History Tobacco Use Types [...] Sex Assigned at Female 10/30/2019 8:35 AM HUMAN RESOURCES HR GENERALIST Legal Sex Female 10:55 PM CDT Gender Identity Female 10/30/2019 8:35 AM HUMAN RESOURCES HR GENERALIST Sexual Orientation Straight 10/30/2019 8: 35 AM HUMAN RESOURCES HR GENERALIST COVID-19 Exposure Response Date Recorded In the last month, have you been in contact with someone who was confirmed or suspected to have Coronavirus / COVID-19? No / Unsure 08/20/2020 8:40 AM HUMAN RESOURCES HR GENERALIST documented as of this encounter Functional Status [...] Medical Group Family & Internal Medicine - [place] [address] [place] [address] Nestor Fletcher MD [address] [place] [address] 08/26/2025 9:00 AM HUMAN RESOURCES HR GENERALIST Office Visit [facility] Medical Group Multispecialty Care - [address] [place] [address] Francisco Levi, DO [address] [place] [address] documented as of this encounter Visit Diagnoses [...] Rule Out 09/11/2023 09/11/2023 09/11/2023 10:29 AM HUMAN RESOURCES HR GENERALIST COVID-19 Rule Out 03/18/2024 03/18/2024 03/18/2024 8:30 PM CDT COVID-19 Rule Out 05/27/2024 05/27/2024 05/27/2024 7:16 PM CDT documented as of this encounter Care Teams Cylinder Machine Operator Relationship Specialty [place] [address] [place] [address] PCP - General FAMILY PRACTICE 05/15/20 documented as of this encounter
--- OUTSIDE RECORDS SUMMARY | 2025-03-30 10:05 | XMS_ITS | Encounter Summary ---
Author Organization [facility] Address [address] [place] [address] Care Team Providers Care Student Dean Name Role Phone Nestor Fletcher MD Primary Care Provider [phone] Encounter Details Date Type Department Care Team (Late st Contact Info) Description 07/09/2020 [employer] Message Enc [facility] Medical Group Family & Internal Medicine [facility] [address] [place] [address] Natali Polo, WILLY [address] [facility] [address] [place] [address] Follow Up/Update Social History Tobacco Use Types [...] Sex Assigned at Female 10/30/2019 8:35 AM GLASS CUTTING MACHINE FEEDER Legal Sex Female 10:55 PM CDT Gender Identity Female 10/30/2019 8:35 AM GLASS CUTTING MACHINE FEEDER Sexual Orientation Straight 10/30/2019 8: 35 AM GLASS CUTTING MACHINE FEEDER COVID-19 Exposure Response Date Recorded In the last month, have you been in contact with someone who was confirmed or suspected to have Coronavirus / COVID-19? No / Unsure 07/09/2020 11:53 AM GLASS CUTTING MACHINE FEEDER documented as of this encounter Functional Status [...] Medical Group Family & Internal Medicine - [place] [address] [place] [address] [place] Fletcher [place] [address] [place] [address] 08/26/2025 9:00 AM GLASS CUTTING MACHINE FEEDER Office Visit [facility] Multispecialty Care - [address], [address] [place] [address] Francisco Levi, DO [address] [place] [address] documented as of this encounter Visit Diagnoses Not on filedocumented in this encounter Additional Health Concerns Infection Onset Date Last Indicated Resolved Time COVID-19 Rule Out 07/09/2020 07/09/2020 07/12/2020 10:16 AM GLASS CUTTING MACHINE FEEDER COVID-19 Rule Out 11/14/2020 11/14/2020 11/15/2020 10:25 AM CDT COVID-19 Rule Out 01/05/2021 01/05/2021 01/05/2021 5:26 PM CDT COVID-19 Rule Out 12/02/2021 12/02/2021 12/02/2021 4:28 PM CDT COVID-19 Rule Out 05/20/2023 05/20/2023 05/20/2023 6:44 PM CDT COVID-19 Rule Out 09/11/2023 09/11/2023 09/11/2023 10:29 AM GLASS CUTTING MACHINE FEEDER COVID-19 Rule Out 03/18/2024 03/18/2024 03/18/2024 8:30 PM CDT COVID-19 Rule Out 05/27/2024 05/27/2024 05/27/2024 7:16 PM CDT documented as of this encounter Care Teams Student Dean Relationship Specialty [place] [address] [place] [address] PCP - General FAMILY PRACTICE 05/15/20 documented as of this encounter
--- OUTSIDE RECORDS SUMMARY | 2025-03-30 10:05 | XMS_ITS | Encounter Summary ---
Author Organization [facility] Address [address] [place] [address] Care Team Providers Care Owner Spa Director Name Role Phone Nestor Fletcher MD Primary Care Provider [phone] Encounter Details Date Type Department Care Team (Latest Contact Info) Description 06/02/2020 Feedbookst Message Enc [facility] Medical Group Multispecialty Care - [facility] [address] [place] [address] Francisco Levi DO [address] [facility] [address] [place] [address] RE: Test Results Social History Tobacco Use Types [...] Assigned at Female 10/30/2019 8:35 AM DRYWALL FINISHER FOREMAN Legal Sex Female 10:55 PM CDT Gender Identity Female 10/30/2019 8:35 AM DRYWALL FINISHER FOREMAN Sexual Orientation Straight 10/30/2019 8: 35 AM DRYWALL FINISHER FOREMAN COVID-19 Exposure Response Date Recorded In the [...] Description 04/03/2025 8:40 AM CDT Office Visit [facility] Medical Group Family & Internal Medicine [facility] [address] [place] [address] Nestor Fletcher MD [address] [place] [address] 08/26/2025 9:00 AM DRYWALL FINISHER FOREMAN Office Visit [facility] Medical Group Multispecialty Care - [facility] [address] [place] [address] Francisco Levi DO [address] [place] [address] documented as of this encounter Visit Diagnoses Not on filedocumented in this encounter Additional Health Concerns Infection Onset Date Last Indicated Resolved Time COVID-19 Rule Out 06/26/2020 06/26/2020 06/27/2020 4:51 PM CDT COVID-19 Rule Out 07/06/2020 07/06/2020 07/08/2020 11:00 PM DRYWALL FINISHER FOREMAN COVID-19 Rule Out 07/09/2020 07/09/2020 07/12/2020 10:16 AM DRYWALL FINISHER FOREMAN COVID-19 Rule Out 11/14/2020 11/14/2020 11/15/2020 10:25 AM CDT COVID-19 Rule Out 01/05/2021 01/05/2021 01/05/2021 5:26 PM CDT COVID-19 Rule Out 12/02/2021 12/02/2021 12/02/2021 4:28 PM CDT COVID-19 Rule Out 05/20/2023 05/20/2023 05/20/2023 6:44 PM CDT COVID-19 Rule Out 09/11/2023 09/11/2023 09/11/2023 10:29 AM DRYWALL FINISHER FOREMAN COVID-19 Rule Out 03/18/2024 03/18/2024 03/18/2024 8:30 PM CDT COVID-19 Rule Out 05/27/2024 05/27/2024 05/27/2024 7:16 PM CDT documented as of this encounter Care Teams Owner Spa Director Relationship Specialty [place] [address] [place] [address] PCP - General FAMILY PRACTICE 05/15/20 documented as of this encounter
--- OUTSIDE RECORDS SUMMARY | 2025-03-30 10:05 | XMS_ITS | Encounter Summary ---
Author Organization [facility] Address [address] [place] [address] Care Team Providers Care Dress Fitter Name Role Phone Nestor Fletcher MD Primary Care Provider [phone] Encounter Details Date Type Department Care Team (Late st Contact Info) Description 08/17/2022 AppBrick Message Enc [facility] Medical Group Foot & Ankle Specialists [facility] [address] [place] [address] Carlos A Ocasio, DPBrinda [address] [place] [address] Foot pain Social History Tobacco Use Types Packs/Day [...] Sex Assigned at Female 10/30/2019 8:35 AM COAGULATING BATH OPERATOR Legal Sex Female 10:55 PM CDT Gender Identity Female 10/30/2019 8:35 AM COAGULATING BATH OPERATOR Sexual Orientation Straight 10/30/2019 8: 35 AM COAGULATING BATH OPERATOR COVID-19 Exposure Response Date Recorded In the last 10 days, have yo u been in contact with someone who was confirmed or suspected to have Coronavirus/COVID-19? No / Unsure 08/08/2022 8:25 AM COAGULATING BATH OPERATOR documented as of this encounter Functional [...] CENTER Medical Group Family & Internal Medicine [facility] [address] [place] [address] Nestor Fletcher MD [address] [place] [phone] 08/26/2025 9:00 AM COAGULATING BATH OPERATOR Office Visit [facility] Medical Group Multispecialty Care - [facility] [address] [place] [address] Francisco Levi, [address] [place] [address] documented as of this encounter Goals Goal [...] Rule Out 09/11/2023 09/11/2023 09/11/2023 10:29 AM COAGULATING BATH OPERATOR COVID-19 Rule Out 03/18/2024 03/18/2024 03/18/2024 8:30 PM CDT COVID-19 Rule Out 05/27/2024 05/27/2024 05/27/2024 7:16 PM CDT Assessment Noted Time PHQ-9 Depression Total Score: 0 02/26/20 22 9:40 AM CDT documented as of this encounter Care Teams Dress Fitter Relationship Specialty [place] [address] [place] [address] PCP - General FAMILY PRACTICE 05/15/20 documented as of this encounter
--- OUTSIDE RECORDS SUMMARY | 2025-03-30 10:05 | XMS_ITS | Encounter Summary ---
Author Organization [facility] Address [address] [place] [address] Care Team Providers Care Reset Merchandiser Name Role Phone Nestor Fletcher MD Primary Care Provider [phone] Encounter Details Date Type Department Care Team (Late st Contact Info) Description 11/16/2022 [email or web address] Message Enc [facility] Medical Group Family & Internal Medicine [address] [address] Nestor Fletcher MD [address] [place] [address] Fridays injection Social History Tobacco Use Types Packs/Day [...] Sex Assigned at Female 10/30/2019 8:35 AM CURED MEATS SUPERVISOR Legal Sex Female 10:55 PM CDT Gender Identity Female 10/30/2019 8:35 AM CURED MEATS SUPERVISOR Sexual Orientation Straight 10/30/2019 8: 35 AM CURED MEATS SUPERVISOR COVID-19 Exposure Response Date Recorded In the last 10 days, have yo u been in contact with someone who was confirmed or suspected to have Coronavirus/COVID-19? No / Unsure 11/18/2022 12:26 PM CDT documented as of this encounter [...] 8:40 AM CDT Office Visit [facility] Family & Internal Medicine [facility] [address] [place] [address] Nestor Fletcher MD [address] [place] [address] 08/26/2025 9:00 AM CURED MEATS SUPERVISOR [facility] [address] [place] [address] Gurmeet FranciscoDO [address] [place] [address] documented as of this encounter Goals Goal [...] Rule Out 09/11/2023 09/11/2023 09/11/2023 10:29 AM CURED MEATS SUPERVISOR COVID-19 Rule Out 03/18/2024 03/18/2024 03/18/2024 8:30 PM CDT COVID-19 Rule Out 05/27/2024 05/27/2024 05/27/2024 7:16 PM CDT Assessment Noted Time PHQ-9 Depression Total Score: 0 02/26/20 22 9:40 AM CDT documented as of this encounter Care Teams Reset Merchandiser Relationship Specialty [place] [address] [place] [address] PCP - General FAMILY PRACTICE 05/15/20 documented as of this encounter
--- OUTSIDE RECORDS SUMMARY | 2025-03-30 10:05 | XMS_ITS | Encounter Summary ---
Author Organization [facility] Address [address] [place] [address] Care Team Providers Care Group Practice Pediatrician Name Role Phone Nestor Fletcher MD Primary Care Provider [phone] Encounter Details Date Type Department Care Team (Late st Contact Info) Description 07/06/2020 PSafe Message Enc [facility] Medical Group Family & Internal Medicine [address] [address] Nestor Fletcher MD [address] [place] [address] RE: Question Social History Tobacco Use [...] Sex Assigned at Female 10/30/2019 8:35 AM SERVICES REP Legal Sex Female 10:55 PM CDT Gender Identity Female 10/30/2019 8:35 AM SERVICES REP Sexual Orientation Straight 10/30/2019 8: 35 AM SERVICES REP COVID-19 Exposure Response Date Recorded In the last month, have you been in contact with someone who was confirmed or suspected to have Coronavirus / COVID-19? No / Unsure 07/09/2020 11:53 AM SERVICES REP documented as of this encounter Functional Status [...] Description 04/03/2025 8:40 AM CDT Office Visit [facility] Medical Group Family & Internal Medicine [address] [address] Nestor Fletcher MD [address] [place] [address] 08/26/2025 9:00 AM SERVICES REP Office Visit [facility] Multispecialty Care - [address], [address] [place] [phone] Francisco Levi, DO [address] [place] [address] documented as of this encounter Visit Diagnoses Not on filedocumented in this encounter Additional Health Concerns Infection Onset Date Last Indicated Resolved Time COVID-19 Rule Out 07/06/2020 07/06/2020 07/08/2020 11:00 PM SERVICES REP COVID-19 Rule Out 07/09/2020 07/09/2020 07/12/2020 10:16 AM SERVICES REP COVID-19 Rule Out 11/14/2020 11/14/2020 11/15/2020 10:25 AM CDT COVID-19 Rule Out 01/05/2021 01/05/2021 01/05/2021 5:26 PM CDT COVID-19 Rule Out 12/02/2021 12/02/2021 12/02/2021 4:28 PM CDT COVID-19 Rule Out 05/20/2023 05/20/2023 05/20/2023 6:44 PM CDT COVID-19 Rule Out 09/11/2023 09/11/2023 09/11/2023 10:29 AM SERVICES REP COVID-19 Rule Out 03/18/2024 03/18/2024 03/18/2024 8:30 PM CDT COVID-19 Rule Out 05/27/2024 05/27/2024 05/27/2024 7:16 PM CDT documented as of this encounter Care Teams Group Practice Pediatrician Relationship Specialty [place] [address] [place] [address] PCP - General FAMILY PRACTICE 05/15/20 documented as of this encounter
--- OUTSIDE RECORDS SUMMARY | 2025-03-30 10:05 | XMS_ITS | Encounter Summary ---
Author Organization [facility] Address [address] [place] [address] Care Team Providers Care Multi Site Leasing Consultant Name Role Phone Nestor Fletcher MD Primary Care Provider [phone] Encounter Details Date Type Department Care Team (Late st Contact Info) Description 07/09/2020 iSOCO Message Enc [facility] Medical Group Family & Internal Medicine [facility] [address] [place] [address] Natali Polo APNP [address] [facility] [address] [place] [address] RE: Follow Up/Update Social History Tobacco Use [...] Sex Assigned at Female 10/30/2019 8:35 AM VETERINARY MICROBIOLOGIST Legal Sex Female 10:55 PM CDT Gender Identity Female 10/30/2019 8:35 AM VETERINARY MICROBIOLOGIST Sexual Orientation Straight 10/30/2019 8: 35 AM VETERINARY MICROBIOLOGIST COVID-19 Exposure Response Date Recorded In the last month, have you been in contact with someone who was confirmed or suspected to have Coronavirus / COVID-19? No / Unsure 07/09/2020 11:53 AM VETERINARY MICROBIOLOGIST documented as of this encounter Functional Status [...] Description 04/03/2025 8:40 AM CDT Office Visit [facility] Medical Group Family & Internal Medicine - [place] [address] [place] [address] Nestor Fletcher MD [address] [place] [phone] 08/26/2025 9:00 AM VETERINARY MICROBIOLOGIST Office Visit [facility] Medical Group Multispecialty Care - [address], [address] [place] [address] Francisco Levi DO [address] [place] [address] documented as of this encounter Visit Diagnoses Not on filedocumented in this encounter Additional Health Concerns Infection Onset Date Last Indicated Resolved Time COVID-19 Rule Out 07/09/2020 07/09/2020 07/12/2020 10:16 AM VETERINARY MICROBIOLOGIST COVID-19 Rule Out 11/14/2020 11/14/2020 11/15/2020 10:25 AM CDT COVID-19 Rule Out 01/05/2021 01/05/2021 01/05/2021 5:26 PM CDT COVID-19 Rule Out 12/02/2021 12/02/2021 12/02/2021 4:28 PM CDT COVID-19 Rule Out 05/20/2023 05/20/2023 05/20/2023 6:44 PM CDT COVID-19 Rule Out 09/11/2023 09/11/2023 09/11/2023 10:29 AM VETERINARY MICROBIOLOGIST COVID-19 Rule Out 03/18/2024 03/18/2024 03/18/2024 8:30 PM CDT COVID-19 Rule Out 05/27/2024 05/27/2024 05/27/2024 7:16 PM CDT documented as of this encounter Care Teams Multi Site Leasing Consultant Relationship Specialty [place] [address] [place] [address] PCP - General FAMILY PRACTICE 05/15/20 documented as of this encounter
--- OUTSIDE RECORDS SUMMARY | 2025-03-30 10:05 | XMS_ITS | Encounter Summary ---
Author Organization [facility] Address [address] [place] [address] Care Team Providers Care Cash Processor Name Role Phone Nestor Fletcher MD Primary Care Provider [phone] Encounter Details Date Type Department Care Team (Late st Contact Info) Description 08/08/2022 [employer] Message Enc [facility] Medical Group Multispecialty Care - [facility] [address] [facility] [place] [phone] Pura Velazquez APRN [address] [facility] [address] [place] [address] Appointment Social History Tobacco Use Types Packs/Day [...] Sex Assigned at Female 10/30/2019 8:35 AM TUBE HEATER Legal Sex Female 10:55 PM CDT Gender Identity Female 10/30/2019 8:35 AM TUBE HEATER Sexual Orientation Straight 10/30/2019 8: 35 AM TUBE HEATER COVID-19 Exposure Response Date Recorded In the last 10 days, have yo u been in contact with someone who was confirmed or suspected to have Coronavirus/COVID-19? No / Unsure 08/08/2022 8:25 AM TUBE HEATER documented as of this encounter Functional Status [...] Description 04/03/2025 8:40 AM CDT Office Visit [facility] Medical Group Family & Internal Medicine [facility] [address] [place] [address] [place] [id number] [place] [address] 08/26/2025 9:00 AM TUBE HEATER Office Visit [facility] Medical Group Multispecialty Care - [facility] [address] [place] [address] Francisco Levi DO [address] [place] [address] documented as of this encounter Goals Goal [...] Rule Out 09/11/2023 09/11/2023 09/11/2023 10:29 AM TUBE HEATER COVID-19 Rule Out 03/18/2024 03/18/2024 03/18/2024 8:30 PM CDT COVID-19 Rule Out 05/27/2024 05/27/2024 05/27/2024 7:16 PM CDT Assessment Noted Time PHQ-9 Depression Total Score: 0 02/26/20 22 9:40 AM CDT documented as of this encounter Care Teams Cash Processor Relationship Specialty [place] [address] [place] [address] PCP - General FAMILY PRACTICE 05/15/20 documented as of this encounter
--- OUTSIDE RECORDS SUMMARY | 2025-03-30 10:05 | XMS_ITS | Encounter Summary ---
Author Organization [facility] Address [address] [place] [address] Care Team Providers Care Medical Director Of Hospice Name Role Phone Nestor Fletcher MD Primary Care Provider [phone] Encounter Details Date Type Department Care Team (Late st Contact Info) Description 05/11/2022 [employer] Message Enc [facility] Medical Group Family & Internal Medicine [address] [address] Nestor Fletcher MD [address] [place] [address] Illness Social History Tobacco Use Types [...] Sex Assigned at Female 10/30/2019 8:35 AM SOLDERER BARREL RIBS Legal Sex Female 10:55 PM CDT Gender Identity Female 10/30/2019 8:35 AM SOLDERER BARREL RIBS Sexual Orientation Straight 10/30/2019 8: 35 AM SOLDERER BARREL RIBS COVID-19 Exposure Response Date Recorded In the last 10 days, have yo u been in contact with someone who was confirmed or suspected to have Coronavirus/COVID-19? No / Unsure 05/11/2022 4:01 PM CDT documented as of this encounter [...] of Assessment Author Status No Risk Indicated 05/11/2022 4:04 PM CDT Micheline Matthews RN Active * [place] Suicide Severity Rating Scale (Screener/Recent Self-Report) Question Answer Date of Assessment Author Status 1. Wish to be (Past 1 Month) No 05/11/2022 4:04 PM CDT Mary Matthews RN A ctive 2. Non-Specific Active Suicidal Thoughts (Past 1 Month) No 05/11/2022 4:04 PM CINTHYAT Mary Matthews RN A ctive 6. Suicidal Behavior (Lifetime) No 05/11/2022 4:04 PM CINTHYAT Mary Matthews RN A ctive documented as of this encounter Mental Status * Because of a physical, mental, or emotional condition, do you have serious difficulty concentrating, remembering, or making decisions? Answer Entry Date Author Status No 03/31/2020 2:12 AM CDT Kelly Hayes RN Active documented in this encounter Progress Notes * Marina Archer RN - 05/11/2022 11:[address] Fletcher, can give Zpak documented in this encounter Plan of Treatment Upcoming Encounters Date Type Department Care Team (Late st Contact Info) Description 04/03/2025 8:40 AM CDT Office Visit [facility] Family & Internal Medicine - [place] [address] [place] [address] [place] [address] [place] [address] 08/26/2025 9:00 AM SOLDERER BARREL RIBS Office Visit [facility] Multispecialty Care - [facility] [address] [place] [address] Francisco Levi DO [address] [place] [address] documented as of this encounter Visit Diagnoses Not on filedocumented in this encounter Additional Health Concerns Infection Onset Date Last Indicated Resolved Time COVID-19 Rule Out 05/20/2023 05/20/2023 05/20/2023 6:44 PM CDT COVID-19 Rule Out 09/11/2023 09/11/2023 09/11/2023 10:29 AM SOLDERER BARREL RIBS COVID-19 Rule Out 03/18/2024 03/18/2024 03/18/2024 8:30 PM CDT COVID-19 Rule Out 05/27/2024 05/27/2024 05/27/2024 7:16 PM CDT Assessment Noted Time PHQ-9 Depression Total Score: 0 02/26/20 9:40 AM CDT documented as of this encounter Care Teams Medical Director Of Hospice Relationship Specialty [place] [address] [place] [address] PCP - General FAMILY PRACTICE 05/15/20 documented as of this encounter
--- OUTSIDE RECORDS SUMMARY | 2025-03-30 10:05 | XMS_ITS | Encounter Summary ---
Author Organization [facility] Address [address] [place] [address] Care Team Providers Care Rectification Printer Name Role Phone Nestor Fletcher MD Primary Care Provider [phone] Encounter Details Date Type Department Care Team (Late st Contact Info) Description 05/26/2020 [employer] Message Enc [facility] Medical Group General Surgery - [place] [address], [address] [place] [address] [place] [address] [facility] [address] [place] [address] Question Social History Tobacco Use Types Packs/Day [...] Sex Assigned at Female 10/30/2019 8:35 AM ASSISTANT PRESS OPERATOR OFFSET Legal Sex Female 10:55 PM CDT Gender Identity Female 10/30/2019 8:35 AM ASSISTANT PRESS OPERATOR OFFSET Sexual Orientation Straight 10/30/2019 8: 35 AM ASSISTANT PRESS OPERATOR OFFSET COVID-19 Exposure Response Date Recorded In the last month, have you been in contact with someone who was confirmed or suspected to have Coronavirus / COVID-19? No / Unsure 05/29/2020 10:18 AM CDT documented as of this encounter [...] Medical Group Family & Internal Medicine - [place] [address] [place] [address] Nestor Fletcher MD [address] [place] [address] 08/26/2025 9:00 AM ASSISTANT PRESS OPERATOR OFFSET Office Visit [facility] Medical Group Multispecialty Care - [address], [address] [place] [address] Francisco Lvei, DO [address] [place] [address] documented as of this encounter Visit Diagnoses Not on filedocumented in this encounter Additional Health Concerns Infection Onset Date Last Indicated Resolved Time COVID-19 Rule Out 05/25/2020 05/25/2020 05/27/2020 12:21 AM CDT COVID-19 Rule Out 06/26/2020 06/26/2020 06/27/2020 4:51 PM CDT COVID-19 Rule Out 07/06/2020 07/06/2020 07/08/2020 11:00 PM ASSISTANT PRESS OPERATOR OFFSET COVID-19 Rule Out 07/09/2020 07/09/2020 07/12/2020 10:16 AM ASSISTANT PRESS OPERATOR OFFSET COVID-19 Rule Out 11/14/2020 11/14/2020 11/15/2020 10:25 AM CDT COVID-19 Rule Out 01/05/2021 01/05/2021 01/05/2021 5:26 PM CDT COVID-19 Rule Out 12/02/2021 12/02/2021 12/02/2021 4:28 PM CDT COVID-19 Rule Out 05/20/2023 05/20/2023 05/20/2023 6:44 PM CDT COVID-19 Rule Out 09/11/2023 09/11/2023 09/11/2023 10:29 AM ASSISTANT PRESS OPERATOR OFFSET COVID-19 Rule Out 03/18/2024 03/18/2024 03/18/2024 8:30 PM CDT COVID-19 Rule Out 05/27/2024 05/27/2024 05/27/2024 7:16 PM CDT documented as of this encounter Care Teams Rectification Printer Relationship Specialty [place] [address] [place] [address] PCP - General FAMILY PRACTICE 05/15/20 documented as of this encounter
--- OUTSIDE RECORDS SUMMARY | 2025-03-30 10:05 | XMS_ITS | Encounter Summary ---
Author Organization [facility] Address [address] [place] [address] Care Team Providers Care Flexible Nanny Name Role Phone Nestor Fletcher MD Primary Care Provider [phone] Encounter Details Date Type Department Care Team (Late st Contact Info) Description 08/11/2020 [email or web address] Message Enc [facility] Medical Group Family & Internal Medicine [address] [address] [place] Fletcher [place] [id number] [place] [address] Question Social History Tobacco Use Types [...] Sex Assigned at Female 10/30/2019 8:35 AM SKI MAKER Legal Sex Female 10:55 PM CDT Gender Identity Female 10/30/2019 8:35 AM SKI MAKER Sexual Orientation Straight 10/30/2019 8: 35 AM SKI MAKER COVID-19 Exposure Response Date Recorded In the last month, have you been in contact with someone who was confirmed or suspected to have Coronavirus / COVID-19? No / Unsure 08/11/2020 8:38 AM SKI MAKER documented as of this encounter Functional Status [...] Assessment Author Status No 03/31/2020 2:12 AM Kelly Wade RN Active * Because of a physical, [...] Date Author Status No 03/31/2020 2:12 AM Kelly Wade RN Active documented in this encounter Progress Notes * Edie Richards MA - 08/11/2020 4:20 PM CST Spoke to pt. On phone scheduled an appt. For Dr. Fletcher to Discuss possible sleep study. MAKER * Edie Richards MA - 08/11/2020 4:14 PM CST Sounds like you need a appt. To discuss a sleep study with doctor. Just call office and schedule anappt. [phone]. Thank you MAKER documented in this encounter Plan of Treatment Upcoming Encounters Date Type Department Care Team (Late st Contact Info) Description 04/03/2025 8:40 AM CDT Office Visit [facility] Family & Internal Medicine [facility] [address] [place] [phone] Nestor Fletcher MD [address] [place] [address] 08/26/2025 9:00 AM SKI MAKER Office Visit [facility] Multispecialty Care - [facility] [address] [place] [address] Francisco Levi DO [address] [place] [address] documented as of this encounter Visit Diagnoses [...] Rule Out 09/11/2023 09/11/2023 09/11/2023 10:29 AM SKI MAKER COVID-19 Rule Out 03/18/2024 03/18/2024 03/18/2024 8:30 PM CDT COVID-19 Rule Out 05/27/2024 05/27/2024 05/27/2024 7:16 PM CDT documented as of this encounter Care Teams Flexible Nanny Relationship Specialty [place] [address] [place] [address] PCP - General FAMILY PRACTICE 05/15/20 documented as of this encounter
--- OUTSIDE RECORDS SUMMARY | 2025-03-30 10:05 | XMS_ITS | Encounter Summary ---
Author Organization [facility] Address [address] [place] [address] Care Team Providers Care Refrigeration Repair Supervisor Name Role Phone Nestor Fletcher MD Primary Care Provider [phone] Encounter Details Date Type Department Care Team (Late st Contact Info) Description 06/10/2020 [employer] Message Enc [facility] Medical Group Multispecialty Care - [facility] [address] [place] [address] Francisco Levi DO [address] [place] [address] RE: Question Social History Tobacco Use Types [...] Sex Assigned at Female 10/30/2019 8:35 AM ELECTRO MECHANICAL DESIGNER Legal Sex Female 10:55 PM CDT Gender Identity Female 10/30/2019 8:35 AM ELECTRO MECHANICAL DESIGNER Sexual Orientation Straight 10/30/2019 8: 35 AM ELECTRO MECHANICAL DESIGNER COVID-19 Exposure Response Date Recorded In [...] Description 04/03/2025 8:40 AM CDT Office Visit [facility] Medical Group Family & Internal Medicine [facility] [address] [place] [address] Nestor Fletcher MD [address] [place] [address] 08/26/2025 9:00 AM ELECTRO MECHANICAL DESIGNER Office Visit [facility] Medical Group Multispecialty Care - [facility] [address] [place] [address] Francisco Levi DO [address] [place] [address] documented as of this encounter Visit Diagnoses Not on filedocumented in this encounter Additional Health Concerns Infection Onset Date Last Indicated Resolved Time COVID-19 Rule Out 06/26/2020 06/26/2020 06/27/2020 4:51 PM CDT COVID-19 Rule Out 07/06/2020 07/06/2020 07/08/2020 11:00 PM ELECTRO MECHANICAL DESIGNER COVID-19 Rule Out 07/09/2020 07/09/2020 07/12/2020 10:16 AM ELECTRO MECHANICAL DESIGNER COVID-19 Rule Out 11/14/2020 11/14/2020 11/15/2020 10:25 AM CDT COVID-19 Rule Out 01/05/2021 01/05/2021 01/05/2021 5:26 PM CDT COVID-19 Rule Out 12/02/2021 12/02/2021 12/02/2021 4:28 PM CDT COVID-19 Rule Out 05/20/2023 05/20/2023 05/20/2023 6:44 PM CDT COVID-19 Rule Out 09/11/2023 09/11/2023 09/11/2023 10:29 AM ELECTRO MECHANICAL DESIGNER COVID-19 Rule Out 03/18/2024 03/18/2024 03/18/2024 8:30 PM CDT COVID-19 Rule Out 05/27/2024 05/27/2024 05/27/2024 7:16 PM CDT documented as of this encounter Care Teams Refrigeration Repair Supervisor Relationship Specialty [place] [address] [place] [address] PCP - General FAMILY PRACTICE 05/15/20 documented as of this encounter
--- OUTSIDE RECORDS SUMMARY | 2025-03-30 10:05 | XMS_ITS | Encounter Summary ---
Author Organization [facility] Address [facility] [place] [address] Care Team Providers Care Robot Operator Name Role Phone None, Provider Primary Care Provider Nestor Ma MD Primary Care Provider [phone] Encounter Details Date Type Department Care Team (Late st Contact Info) Description 05/12/2020 Prep for Procedure [facility] [address] [place] [address] [place] [address] [place] [address] Social History Tobacco Use Types Packs/Day Years [...] Sex Assigned at Female 10/30/2019 8:35 AM WAX ROOM SUPERVISOR Legal Sex Female 10:55 PM CDT Gender Identity Female 10/30/2019 8:35 AM WAX ROOM SUPERVISOR Sexual Orientation Straight 10/30/2019 8: 35 AM WAX ROOM SUPERVISOR COVID-19 Exposure Response Date Recorded In the last month, have you been in contact with someone who was confirmed or suspected to have Coronavirus / COVID-19? No / Unsure 05/15/2020 9:59 AM CDT documented as of this encounter [...] Description 04/03/2025 8:40 AM CDT Office Visit [facility] Medical Group Family & Internal Medicine - [place] [address] [place] [address] [place] [address] [place] [address] 08/26/2025 9:00 AM WAX ROOM SUPERVISOR Office Visit [facility] Multispecialty Care - [address], [address] [place] [address] Levi Francisco, DO [address] [place] [address] documented as of this encounter Results * PRE-SURGICAL/PRE-PROCEDURE CORONAVIRUS (COVID 19) (05/15/2020 10:02 AM CDT) CORONAVIRUS SARS COV 2 PCR (RESP) NOT DETECTED NOT DETECTED 05/16/2020 8:21 PM CDT [facility] Comment: A Not Detected (negative) test result [...] providers and patients using the following websites: https://www.[employer].com/home/Covid-19/HCP/NAAT/fact-sheet2 https://www.[employer]Digital Message [employer]/home/Covid-19/Patients/NAAT/ fact-sheet2 This test has been authorized by the FDA under an Emergency Use Authorization (EUA) for use by authorized laboratories. Due to the current public health emergency, [facility] is receiving a high volume of samples [...] about COVID-19 can be found at the [facility] website: www.[employer].com/Covid19. Test performed at [facility] [place] [address] [place] [address] Director: BURT GALLOWAY DO,MPH FIRST TEST NO 05/15/2020 10:52 AM CDT [facility] EMPLOYED IN HEALTHCARE NO 05/15/2020 10:52 AM CDT [facility] SYMPTOMATIC DEFINED BY CDC NO 05/15/2020 10:52 AM CDT [facility] DATE OF SYMPTOM ONSET NA 05/15/2020 10:52 AM CDT [facility] HOSPITALIZATION STATUS NO 05/15/2020 10:52 AM CDT [facility] PATIENT IN ICU NO 05/15/2020 10:52 AM CDT [facility] RESIDENT OF [facility] NO 05/15/2020 10:52 AM CDT [facility] NO 05/15/2020 10:52 AM CDT [facility] PATIENT'S RACE WHITE 05/15/2020 10:52 AM CDT [facility] ETHNICITY WHITE 05/15/2020 10:52 AM CDT [facility] SOURCE (QST) NASOPHARYNGEAL SWAB 05/15/2020 10:02 AM CDT [facility] NASOPHARYNGEAL SWAB / Unknown 05/15/2020 10:02 AM CDT us [place] MD MICROBIOLOGY - GENERAL ORDERABLES Final Result [facility] [address] [place] [address], [place] [phone] [facility] [place] [address] [place] [address], documented in this encounter Visit Diagnoses Diagnosis Pre-op testing- Primary Preoperative examination, unspecified documented in this encounter Additional Health Concerns Infection Onset Date Last Indicated Resolved Time COVID-19 Rule Out 05/15/2020 05/15/2020 05/16/2020 8:21 PM CDT COVID-19 Rule Out 05/25/2020 05/25/2020 05/27/2020 12:21 AM CDT COVID-19 Rule Out 06/26/2020 06/26/2020 06/27/2020 4:51 PM CDT COVID-19 Rule Out 07/06/2020 07/06/2020 07/08/2020 11:00 PM WAX ROOM SUPERVISOR COVID-19 Rule Out 07/09/2020 07/09/2020 07/12/2020 10:16 AM WAX ROOM SUPERVISOR COVID-19 Rule Out 11/14/2020 11/14/2020 11/15/2020 10:25 AM CDT COVID-19 Rule Out 01/05/2021 01/05/2021 01/05/2021 5:26 PM CDT COVID-19 Rule Out 12/02/2021 12/02/2021 12/02/2021 4:28 PM CDT COVID-19 Rule Out 05/20/2023 05/20/2023 05/20/2023 6:44 PM CDT COVID-19 Rule Out 09/11/2023 09/11/2023 09/11/2023 10:29 AM WAX ROOM SUPERVISOR COVID-19 Rule Out 03/18/2024 03/18/2024 03/18/2024 8:30 PM CDT COVID-19 Rule Out 05/27/2024 05/27/2024 05/27/2024 7:16 PM CDT documented as of this encounter Care Teams Robot Operator Relationship Specialty Start Date End Date None, Provider, PCP - General 03/25/20 05/14/20 [place] [address] [place] [address] PCP - General FAMILY PRACTICE 05/15/20 documented as of this encounter
--- OUTSIDE RECORDS SUMMARY | 2025-03-30 10:05 | XMS_ITS | Encounter Summary ---
Author Organization [facility] Address [address] [place] [address] Care Team Providers Care Mortgage Operations Manager Name Role Phone Nestor Fletcher MD Primary Care Provider [phone] Encounter Details Date Type Department Care Team (Late st Contact Info) Description 05/04/2022 [employer] Message Enc [facility] Medical Group Multispecialty Care - [facility] [address] [place] [phone] Eusebio Ron MD 3 [place] [address] Neck Social History Tobacco Use Types Packs/Day [...] Sex Assigned at Female 10/30/2019 8:35 AM HEALTH SAFETY SPECIALIST Legal Sex Female 10:55 PM CDT Gender Identity Female 10/30/2019 8:35 AM HEALTH SAFETY SPECIALIST Sexual Orientation Straight 10/30/2019 8: 35 AM HEALTH SAFETY SPECIALIST COVID-19 Exposure Response Date Recorded In [...] Progress Notes * Varsha Almonte MA - 05/04/2022 8:46 AM CDT Renu Payne is c/o numbness and pain in neck radiating down bilateral hands. This started after a coughing fit yesterday. She said she has enough pain medication she is just wondering if she should get an xray to see if something changed. documented in this encounter Plan of Treatment Upcoming Encounters Date Type Department Care Team (Late st Contact Info) Description 04/03/2025 8:40 AM CDT Office Visit [facility] Family & Internal Medicine - [place] [address] [place] [address] [place] [address] [place] [address] 08/26/2025 9:00 AM HEALTH SAFETY SPECIALIST Office Visit [facility] Multispecialty Care - [facility] [address] [place] [address] Francisco Levi DO [address] [place] [address] documented as of this encounter Visit Diagnoses Not on filedocumented in this encounter Additional Health Concerns Infection Onset Date Last Indicated Resolved Time COVID-19 Rule Out 05/20/2023 05/20/2023 05/20/2023 6:44 PM CDT COVID-19 Rule Out 09/11/2023 09/11/2023 09/11/2023 10:29 AM HEALTH SAFETY SPECIALIST COVID-19 Rule Out 03/18/2024 03/18/2024 03/18/2024 8:30 PM CDT COVID-19 Rule Out 05/27/2024 05/27/2024 05/27/2024 7:16 PM CDT Assessment Noted Time PHQ-9 Depression Total Score: 0 02/26/20 9:40 AM CDT documented as of this encounter Care Teams Mortgage Operations Manager Relationship Specialty [place] [address] [place] [address] PCP - General FAMILY PRACTICE 05/15/20 documented as of this encounter
--- OUTSIDE RECORDS SUMMARY | 2025-03-30 10:05 | XMS_ITS | Encounter Summary ---
Author Organization [facility] Address [address] [place] [address] Care Team Providers Care Hydraulic Rockbreaker Operator Name Role Phone Nestor Fletcher MD Primary Care Provider [phone] Encounter Details Date Type Department Care Team (Late st Contact Info) Description 10/09/2020 [employer] Message Enc [facility] Medical Group Family & Internal Medicine [facility] [address] [place] [address] Natali Polo APNP [address] [facility] [address] [place] [address] RE: Question Social History Tobacco Use [...] Sex Assigned at Female 10/30/2019 8:35 AM OIL WELL GUN PERFORATOR OPERATOR Legal Sex Female 10:55 PM CDT Gender Identity Female 10/30/2019 8:35 AM OIL WELL GUN PERFORATOR OPERATOR Sexual Orientation Straight 10/30/2019 8: 35 AM OIL WELL GUN PERFORATOR OPERATOR COVID-19 Exposure Response Date Recorded In the last month, have you been in contact with someone who was confirmed or suspected to have Coronavirus / COVID-19? No / Unsure 10/12/2020 10:35 AM OIL WELL GUN PERFORATOR OPERATOR documented as of this encounter Functional [...] AM CINTHYAT Kelly Hayes RN Active * Because of [...] encounter Progress Notes * WILLY [place] - 10/09/2020 4:26 PM CST He needs to make an appointment to be seen in office for full evaluation with labs likely and exam.Thank you. WELL GUN PERFORATOR OPERATOR * Monique Vasquez MA - 10/09/2020 4:02 PM CST Please advise WELL GUN PERFORATOR OPERATOR documented in this encounter Plan of Treatment Upcoming Encounters Date Type Department Care Team (Late st Contact Info) Description 04/03/2025 8:40 AM CDT Office Visit [facility] Family & Internal Medicine - [place] [address] [place] [address] [place] [address] [place], [place] [address] 08/26/2025 9:00 AM OIL WELL GUN PERFORATOR OPERATOR Office Visit [facility] Multispecialty Care - [facility] [address] [place] [address] Francisco Levi DO [address] [place] [address] documented as of this encounter Visit Diagnoses [...] Rule Out 09/11/2023 09/11/2023 09/11/2023 10:29 AM OIL WELL GUN PERFORATOR OPERATOR COVID-19 Rule Out 03/18/2024 03/18/2024 03/18/2024 8:30 PM CDT COVID-19 Rule Out 05/27/2024 05/27/2024 05/27/2024 7:16 PM CDT documented as of this encounter Care Teams Hydraulic Rockbreaker Operator Relationship Specialty [place] [address] [place] [address] PCP - General FAMILY PRACTICE 05/15/20 documented as of this encounter
--- OUTSIDE RECORDS SUMMARY | 2025-03-30 10:05 | XMS_ITS | Encounter Summary ---
Author Organization [facility] Address [address] [place] [address] Care Team Providers Care Material Assembler Name Role Phone Nestor Fletcher MD Primary Care Provider [phone] Encounter Details Date Type Department Care Team (Late st Contact Info) Description 05/30/2022 [employer] Message Enc [facility] Medical Group Family & Internal Medicine [address] [address] Nestor Fletcher MD [address] [place] [address] Surgical clearance Social History Tobacco Use Types Packs/Day Years [...] Sex Assigned at Female 10/30/2019 8:35 AM CYLINDER HANDLER Legal Sex Female 10:55 PM CDT Gender Identity Female 10/30/2019 8:35 AM CYLINDER HANDLER Sexual Orientation Straight 10/30/2019 8: 35 AM CYLINDER HANDLER COVID-19 Exposure Response Date Recorded In the last 10 days, have yo u been in contact with someone who was confirmed or suspected to have Coronavirus/COVID-19? No / Unsure 06/02/2022 12:39 PM CDT documented as of this encounter [...] 8:40 AM CDT Office Visit [facility] Medical Group Family & Internal Medicine - [place] [address] [place] [address] Nestor Fletcher MD [address] [place] [address] 08/26/2025 9:00 AM CYLINDER HANDLER Office Visit [facility] Group Multispecialty Care - [address] [place] [address] Francisco Levi, DO [address] [place] [address] documented as of this encounter Visit Diagnoses Not on filedocumented in this encounter Additional Health Concerns Infection Onset Date Last Indicated Resolved Time COVID-19 Rule Out 05/20/2023 05/20/2023 05/20/2023 6:44 PM CDT COVID-19 Rule Out 09/11/2023 09/11/2023 09/11/2023 10:29 AM CYLINDER HANDLER COVID-19 Rule Out 03/18/2024 03/18/2024 03/18/2024 8:30 PM CDT COVID-19 Rule Out 05/27/2024 05/27/2024 05/27/2024 7:16 PM CDT Assessment Noted Time PHQ-9 Depression Total Score: 0 02/26/20 22 9:40 AM CDT documented as of this encounter Care Teams Material Assembler Relationship Specialty [place] [address] [place] [address] PCP - General FAMILY PRACTICE 05/15/20 documented as of this encounter
--- OUTSIDE RECORDS SUMMARY | 2025-03-30 10:05 | XMS_ITS | Encounter Summary ---
Author Organization [facility] Address [address] [place] [address] Care Team Providers Care Supervisor Airplane Flight Attendant Name Role Phone Nestor Fletcher MD Primary Care Provider +[phone] Encounter Details Date Type Department Care Team (Late st Contact Info) Description 04/13/2022 [employer] Message Enc [facility] Medical Group Family & Internal Medicine [address] [address] Nestor Fletcher MD [address] [place] [address] Restless legs Social History Tobacco Use Types Packs/Day Years [...] Sex Assigned at Female 10/30/2019 8:35 AM INSURANCE MARKETING REP Legal Sex Female 10:55 PM CDT Gender Identity Female 10/30/2019 8:35 AM INSURANCE MARKETING REP Sexual Orientation Straight 10/30/2019 8: 35 AM INSURANCE MARKETING REP COVID-19 Exposure Response Date Recorded In [...] Description 04/03/2025 8:40 AM CDT Office Visit [facility] Medical Group Family & Internal Medicine - [place] [address] [place] [address] Nestor Fletcher MD [address] [place] [address] 08/26/2025 9:00 AM INSURANCE MARKETING REP Office Visit [facility] Medical Group Multispecialty Care - [address], [address] [place] [address] Francisco Levi, DO [address] [place] [address] documented as of this encounter Visit Diagnoses Not on filedocumented in this encounter Additional Health Concerns Infection Onset Date Last Indicated Resolved Time COVID-19 Rule Out 05/20/2023 05/20/2023 05/20/2023 6:44 PM CDT COVID-19 Rule Out 09/11/2023 09/11/2023 09/11/2023 10:29 AM INSURANCE MARKETING REP COVID-19 Rule Out 03/18/2024 03/18/2024 03/18/2024 8:30 PM CDT COVID-19 Rule Out 05/27/2024 05/27/2024 05/27/2024 7:16 PM CDT Assessment Noted Time PHQ-9 Depression Total Score: 0 02/26/20 22 9:40 AM CDT documented as of this encounter Care Teams Supervisor Airplane Flight Attendant Relationship Specialty [place] [address] [place] [address] PCP - General FAMILY PRACTICE 05/15/20 documented as of this encounter
--- OUTSIDE RECORDS SUMMARY | 2025-03-30 10:05 | XMS_ITS | Encounter Summary ---
Author Organization [facility] Address [address] [place] [address] Care Team Providers Care Tax Associate Name Role Phone Nestor Fletcher MD Primary Care Provider [phone] Encounter Details Date Type Department Care Team (Late st Contact Info) Description 05/25/2020 O[employer]O Message Enc [facility] Medical Group Family & Internal Medicine [address] [address] [place] Fletcher [place] [id number] [place] [address] RE: Follow Up/Update Social History Tobacco [...] Sex Assigned at Female 10/30/2019 8:35 AM PARACHUTE FOLDER Legal Sex Female 10:55 PM CDT Gender Identity Female 10/30/2019 8:35 AM PARACHUTE FOLDER Sexual Orientation Straight 10/30/2019 8: 35 AM PARACHUTE FOLDER COVID-19 Exposure Response Date Recorded In the last month, have you been in contact with someone who was confirmed or suspected to have Coronavirus / COVID-19? No / Unsure 05/28/2020 7:33 AM CDT documented as of this encounter [...] Medical Group Family & Internal Medicine - [place] [address] [place] [address] Nestor Fletcher MD [address] [place] [id number] 08/26/2025 9:00 AM PARACHUTE FOLDER Office Visit [facility] Medical Group Multispecialty Care - [address], [address] [place] [address] Francisco Levi DO [address] [place] [address] documented as of this encounter Visit Diagnoses Not on filedocumented in this encounter Additional Health Concerns Infection Onset Date Last Indicated Resolved Time COVID-19 Rule Out 05/25/2020 05/25/2020 05/27/2020 12:21 AM CDT COVID-19 Rule Out 06/26/2020 06/26/2020 06/27/2020 4:51 PM CDT COVID-19 Rule Out 07/06/2020 07/06/2020 07/08/2020 11:00 PM PARACHUTE FOLDER COVID-19 Rule Out 07/09/2020 07/09/2020 07/12/2020 10:16 AM PARACHUTE FOLDER COVID-19 Rule Out 11/14/2020 11/14/2020 11/15/2020 10:25 AM CDT COVID-19 Rule Out 01/05/2021 01/05/2021 01/05/2021 5:26 PM CDT COVID-19 Rule Out 12/02/2021 12/02/2021 12/02/2021 4:28 PM CDT COVID-19 Rule Out 05/20/2023 05/20/2023 05/20/2023 6:44 PM CDT COVID-19 Rule Out 09/11/2023 09/11/2023 09/11/2023 10:29 AM PARACHUTE FOLDER COVID-19 Rule Out 03/18/2024 03/18/2024 03/18/2024 8:30 PM CDT COVID-19 Rule Out 05/27/2024 05/27/2024 05/27/2024 7:16 PM CDT documented as of this encounter Care Teams Tax Associate Relationship Specialty [place] [address] [place] [address] PCP - General FAMILY PRACTICE 05/15/20 documented as of this encounter
--- OUTSIDE RECORDS SUMMARY | 2025-03-30 10:05 | XMS_ITS | Encounter Summary ---
Author Organization [facility] Address [address] [place] [address] Care Team Providers Care Endband Cutter Hand Name Role Phone Nestor Fletcher MD Primary Care Provider [phone] Encounter Details Date Type Department Care Team (Late st Contact Info) Description 04/22/2022 [employer] Message Enc [facility] Medical Group Family & Internal Medicine [address] [address] Nestor Fletcher MD [address] [place] [address] Pain med Social History Tobacco Use Types Packs/Day Years [...] Sex Assigned at Female 10/30/2019 8:35 AM PLANT TOUR GUIDE Legal Sex Female 10:55 PM CDT Gender Identity Female 10/30/2019 8:35 AM PLANT TOUR GUIDE Sexual Orientation Straight 10/30/2019 8: 35 AM PLANT TOUR GUIDE COVID-19 Exposure Response Date Recorded In the [...] Progress Notes * Marina Archer RN - 04/25/2022 10:24 AM CDT Per chart, Hydrocodone was sent in on 04-22. documented in this encounter Plan of Treatment Upcoming Encounters Date Type Department Care Team (Late st Contact Info) Description 04/03/2025 8:40 AM CDT Office Visit [facility] Medical Group Family & Internal Medicine [address] [address] [place] [address] [place] [address] 08/26/2025 9:00 AM PLANT TOUR GUIDE Office Visit [facility] Medical Group Multispecialty Care - [facility] [address] [place] [address] Francisco Levi DO [address] [place] [address] documented as of this encounter Visit Diagnoses Not on filedocumented in this encounter Additional Health Concerns Infection Onset Date Last Indicated Resolved Time COVID-19 Rule Out 05/20/2023 05/20/2023 05/20/2023 6:44 PM CDT COVID-19 Rule Out 09/11/2023 09/11/2023 09/11/2023 10:29 AM PLANT TOUR GUIDE COVID-19 Rule Out 03/18/2024 03/18/2024 03/18/2024 8:30 PM CDT COVID-19 Rule Out 05/27/2024 05/27/2024 05/27/2024 7:16 PM CDT Assessment Noted Time PHQ-9 Depression Total Score: 0 02/26/20 22 9:40 AM CDT documented as of this encounter Care Teams Endband Cutter Hand Relationship Specialty [place] [address] [place] [address] PCP - General FAMILY PRACTICE 05/15/20 documented as of this encounter
--- OUTSIDE RECORDS SUMMARY | 2025-03-30 10:05 | XMS_ITS | Encounter Summary ---
Author Organization [facility] Address [address] [place] [address] Care Team Providers Care Fur Dry Cleaner Name Role Phone Nestor Fletcher MD Primary Care Provider [phone] Encounter Details Date Type Department Care Team (Late st Contact Info) Description 07/09/2020 Travefyt Message Enc [facility] Medical Group Multispecialty Care - [facility] [address] [place] [address] Francisco Levi DO [address] [place] [address] RE: Question Social History Tobacco Use Types [...] Sex Assigned at Female 10/30/2019 8:35 AM CADDY/CADDIE SUPERVISOR Legal Sex Female 10:55 PM CDT Gender Identity Female 10/30/2019 8:35 AM CADDY/CADDIE SUPERVISOR Sexual Orientation Straight 10/30/2019 8: 35 AM CADDY/CADDIE SUPERVISOR COVID-19 Exposure Response Date Recorded In the last month, have you been in contact with someone who was confirmed or suspected to have Coronavirus / COVID-19? No / Unsure 07/09/2020 11:53 AM CADDY/CADDIE SUPERVISOR documented as of this encounter Functional Status [...] Visit [facility] Medical [facility] Family & Internal [facility] [address] [place] [address] Nestor Fletcher MD [address] [place] [address] 08/26/2025 9:00 AM CADDY/CADDIE SUPERVISOR Office Visit [facility] Multispecialty Care - [facility] [address] [place] [address] Francisco Levi DO [address] [place] [address] documented as of this encounter Visit Diagnoses Not on filedocumented in this encounter Additional Health Concerns Infection Onset Date Last Indicated Resolved Time COVID-19 Rule Out 07/09/2020 07/09/2020 07/12/2020 10:16 AM CADDY/CADDIE SUPERVISOR COVID-19 Rule Out 11/14/2020 11/14/2020 11/15/2020 10:25 AM CDT COVID-19 Rule Out 01/05/2021 01/05/2021 01/05/2021 5:26 PM CDT COVID-19 Rule Out 12/02/2021 12/02/2021 12/02/2021 4:28 PM CDT COVID-19 Rule Out 05/20/2023 05/20/2023 05/20/2023 6:44 PM CDT COVID-19 Rule Out 09/11/2023 09/11/2023 09/11/2023 10:29 AM CADDY/CADDIE SUPERVISOR COVID-19 Rule Out 03/18/2024 03/18/2024 03/18/2024 8:30 PM CDT COVID-19 Rule Out 05/27/2024 05/27/2024 05/27/2024 7:16 PM CDT documented as of this encounter Care Teams Fur Dry Cleaner Relationship Specialty [place] [address] [place] [address] PCP - General FAMILY PRACTICE 05/15/20 documented as of this encounter
--- OUTSIDE RECORDS SUMMARY | 2025-03-30 10:05 | XMS_ITS | Encounter Summary ---
Author Organization [facility] Address [address] [place] [address] Care Team Providers Care Nicu Rn Name Role Phone Nestor Fletcher MD Primary Care Provider [phone] Encounter Details Date Type Department Care Team (Late st Contact Info) Description 10/07/[address] [facility] Medical Group Foot & Ankle Specialists [facility] [address] [place] [address] Carlos A Ocasio, ROSY [address] [place] [address] RE: Other Social History Tobacco Use Types Packs/Day [...] Sex Assigned at Female 10/30/2019 8:35 AM MATHEMATICAL TECHNICIAN Legal Sex Female 10:55 PM CDT Gender Identity Female 10/30/2019 8:35 AM MATHEMATICAL TECHNICIAN Sexual Orientation Straight 10/30/2019 8: 35 AM MATHEMATICAL TECHNICIAN COVID-19 Exposure Response Date Recorded In the last month, have you been in contact with someone who was confirmed or suspected to have Coronavirus / COVID-19? No / Unsure 10/07/2020 4:21 PM MATHEMATICAL TECHNICIAN documented as of this encounter Functional Status [...] documented in this encounter Progress Notes * Sharon Hinkle - 10/08/2020 7:37 AM CSTFrom: Renu Marquez To: Dr. Leda Ocasio Sent: 10/07/2020 7:29 PM MATHEMATICAL TECHNICIAN Subject: Other computer help desk representative wanted to know when my appointment with Dr. Fletcher will be for surgical clearance. It has been scheduled for 10-14-2020. EMATICAL TECHNICIAN documented in this encounter Plan of Treatment Upcoming Encounters Date Type Department Care Team (Late st Contact Info) Description 04/03/2025 8:40 AM CDT Office Visit [facility] Family & Internal Medicine - [place] [address] [place] [address] [place] [address] [place] [address] 08/26/2025 9:00 AM MATHEMATICAL TECHNICIAN Office Visit [facility] Multispecialty Care - [facility] [address] [place] [address] Francisco Levi DO [address] [place] [address] documented as of this encounter Visit Diagnoses [...] Rule Out 09/11/2023 09/11/2023 09/11/2023 10:29 AM MATHEMATICAL TECHNICIAN COVID-19 Rule Out 03/18/2024 03/18/2024 03/18/2024 8:30 PM CDT COVID-19 Rule Out 05/27/2024 05/27/2024 05/27/2024 7:16 PM CDT documented as of this encounter Care Teams Nicu Rn Relationship Specialty [place] [address] [place] [address] PCP - General FAMILY PRACTICE 05/15/20 documented as of this encounter
--- OUTSIDE RECORDS SUMMARY | 2025-03-30 10:05 | XMS_ITS | Encounter Summary ---
Author Organization [facility] Address [address] [place] [address] Care Team Providers Care Economics Professor Name Role Phone Nestor Fletcher MD Primary Care Provider [phone] Encounter Details Date Type Department Care Team (Late st Contact Info) Description 04/07/2022 Cal[employer] Message Enc [facility] Medical Group Foot & Ankle Specialists [facility] [address] [place] [address] Carlos A Ocasio, DPBrinda [address] [place] [address] Neurectomy Social History Tobacco Use Types Packs/Day Years [...] Sex Assigned at Female 10/30/2019 8:35 AM TECHNICIAN HELPER INSTRUMENT Legal Sex Female 10:55 PM CDT Gender Identity Female 10/30/2019 8:35 AM TECHNICIAN HELPER INSTRUMENT Sexual Orientation Straight 10/30/2019 8: 35 AM TECHNICIAN HELPER INSTRUMENT COVID-19 Exposure Response Date Recorded In the [...] Description 04/03/2025 8:40 AM CDT Office Visit [facility] Medical Group Family & Internal Medicine - [place] [address] [place] [address] [place] Fletcher [place] [address] [place] [address] 08/26/2025 9:00 AM TECHNICIAN HELPER INSTRUMENT Office Visit [facility] Medical Group Multispecialty Care - [address] [place] [address] Francisco Levi DO [address] [facility] [place] [address] documented as of this encounter Visit Diagnoses Not on filedocumented in this encounter Additional Health Concerns Infection Onset Date Last Indicated Resolved Time COVID-19 Rule Out 05/20/2023 05/20/2023 05/20/2023 6:44 PM CDT COVID-19 Rule Out 09/11/2023 09/11/2023 09/11/2023 10:29 AM TECHNICIAN HELPER INSTRUMENT COVID-19 Rule Out 03/18/2024 03/18/2024 03/18/2024 8:30 PM CDT COVID-19 Rule Out 05/27/2024 05/27/2024 05/27/2024 7:16 PM CDT Assessment Noted Time PHQ-9 Depression Total Score: 0 02/26/20 22 9:40 AM CDT documented as of this encounter Care Teams Economics Professor Relationship Specialty [place] [address] [place] [address] PCP - General FAMILY PRACTICE 05/15/20 documented as of this encounter
--- OUTSIDE RECORDS SUMMARY | 2025-03-30 10:06 | XMS_ITS | Encounter Summary ---
Author Organization [facility] Address [address] [place] [address] Care Team Providers Care Campus Supervisor Name Role Phone Nestor Fletcher MD Primary Care Provider [phone] Encounter Details Date Type Department Care Team (Late st Contact Info) Description 01/24/2023 [employer] Message Enc [facility] Medical Group Multispecialty Care - [facility] [address] [place] [phone] Eusebio Ron MD 3 [place] [address] Xray Social History Tobacco Use Types Packs/Day Years [...] Answer Date Recorded Patient Health Questionnaire-2 Score 0 01/10/2023 Comments No Sex and Gender Information Value Date Recorded Sex Assigned at Female 10/30/2019 8:35 AM CUTTER OPERATOR Legal Sex Female 10:55 PM CDT Gender Identity Female 10/30/2019 8:35 AM CUTTER OPERATOR Sexual Orientation Straight 10/30/2019 8: 35 AM CUTTER OPERATOR COVID-19 Exposure Response Date Recorded In the last 10 days, have yo u been in contact with someone who was confirmed or suspected to have Coronavirus/COVID-19? No / Unsure 01/26/2023 2:16 PM CDT documented as of this encounter [...] Office Visit [facility] Medical [facility] Family & Internal Medicine [facility] [address] [place] [address] [place] Fletcher [place] [address] [place] [address] 08/26/2025 9:00 AM CUTTER OPERATOR Office Visit [facility] Mult[facility]ialty [facility] - [facility] [address] [place] [address] Gurmeet Francisco, [address] [facility] [address] [place] [address] documented as of this encounter Goals Goal [...] Rule Out 09/11/2023 09/11/2023 09/11/2023 10:29 AM CUTTER OPERATOR COVID-19 Rule Out 03/18/2024 03/18/2024 03/18/2024 8:30 PM CDT COVID-19 Rule Out 05/27/2024 05/27/2024 05/27/2024 7:16 PM CDT Assessment Noted Time PHQ-9 Depression Total Score: 0 02/26/20 22 9:40 AM CDT documented as of this encounter Care Teams Campus Supervisor Relationship Specialty [place] [address] [place] [address] PCP - General FAMILY PRACTICE 05/15/20 documented as of this encounter
--- OUTSIDE RECORDS SUMMARY | 2025-03-30 10:06 | XMS_ITS | Encounter Summary ---
Author Organization [facility] Address [address] [place] [address] Care Team Providers Care Diagrammer Name Role Phone Nestor Fletcher MD Primary Care Provider [phone] Encounter Details Date Type Department Care Team (Late st Contact Info) Description 11/19/2020 [employer] Message [facility] [address] [place] [address] [place] [address] [place] [address] RE: Follow Up/Update Social History Tobacco Use Types Packs/Day Years Used Date Smoking Tobacco: Some Days Cigarettes 0.3 29.7 Started: 1990; Last attempted to quit: 05/15/2020 Smokeless Tobacco: Never Comments:Trying my best to q uit. Smoking less. Alcohol Use Standard Drinks/Week Comments Not Currently [...] Sex Assigned at Female 10/30/2019 8:35 AM OPERATIONAL INTELLIGENCE OFFICER Legal Sex Female 10:55 PM CDT Gender Identity Female 10/30/2019 8:35 AM OPERATIONAL INTELLIGENCE OFFICER Sexual Orientation Straight 10/30/2019 8: 35 AM OPERATIONAL INTELLIGENCE OFFICER COVID-19 Exposure Response Date Recorded In the last month, have you been in contact with someone who was confirmed or suspected to have Coronavirus / COVID-19? No / Unsure 11/17/2020 6:13 AM CDT documented as of this encounter [...] & Internal Medicine [facility] [address] [place] [address] [place] Fletcher [place] [id number] [place] [address] 08/26/2025 9:00 AM OPERATIONAL INTELLIGENCE OFFICER Office Visit [facility] [address] [place] [address] Francisco Levi DO [address] [place] [address] documented as of this encounter Visit Diagnoses Not on filedocumented in this encounter Additional Health Concerns Infection Onset Date Last Indicated Resolved Time COVID-19 Rule Out 01/05/2021 01/05/2021 01/05/2021 5:26 PM CDT COVID-19 Rule Out 12/02/2021 12/02/2021 12/02/2021 4:28 PM CDT COVID-19 Rule Out 05/20/2023 05/20/2023 05/20/2023 6:44 PM CDT COVID-19 Rule Out 09/11/2023 09/11/2023 09/11/2023 10:29 AM OPERATIONAL INTELLIGENCE OFFICER COVID-19 Rule Out 03/18/2024 03/18/2024 03/18/2024 8:30 PM CDT COVID-19 Rule Out 05/27/2024 05/27/2024 05/27/2024 7:16 PM CDT documented as of this encounter Care Teams Diagrammer Relationship Specialty [place] [address] [place] [address] PCP - General FAMILY PRACTICE 05/15/20 documented as of this encounter
--- OUTSIDE RECORDS SUMMARY | 2025-03-30 10:06 | XMS_ITS | Encounter Summary ---
Author Organization [facility] Address [address] [place] [address] Care Team Providers Care Water Meter Installer Name Role Phone Nestor Fletcher MD Primary Care Provider [phone] Encounter Details Date Type Department Care Team (Late st Contact Info) Description 01/22/2021 [employer] Message Enc [facility] Medical Group Family & Internal Medicine [address] [address] Nestor Fletcher MD [address] [place] [address] RE: Question Social History Tobacco Use [...] Sex Assigned at Female 10/30/2019 8:35 AM STENCIL MACHINE OPERATOR Legal Sex Female 10:55 PM CDT Gender Identity Female 10/30/2019 8:35 AM STENCIL MACHINE OPERATOR Sexual Orientation Straight 10/30/2019 8: 35 AM STENCIL MACHINE OPERATOR COVID-19 Exposure Response Date Recorded In the last month, have you been in contact with someone who was confirmed or suspected to have Coronavirus / COVID-19? No / Unsure 01/25/2021 8:15 AM CDT documented as of this encounter [...] Office Visit [facility] Medical [facility] Family & Internal Medicine [facility] [address] [place] [address] Nest[place] Fletcher [place] [id number] [place] [address] 08/26/2025 9:00 AM STENCIL MACHINE OPERATOR Office Visit [facility] Multispecialty [facility] [address] [place] [address] Francisco Levi DO [address] [place] [address] documented as of this encounter Visit Diagnoses Not on filedocumented in this encounter Additional Health Concerns Infection Onset Date Last Indicated Resolved Time COVID-19 Rule Out 12/02/2021 12/02/2021 12/02/2021 4:28 PM CDT COVID-19 Rule Out 05/20/2023 05/20/2023 05/20/2023 6:44 PM CDT COVID-19 Rule Out 09/11/2023 09/11/2023 09/11/2023 10:29 AM STENCIL MACHINE OPERATOR COVID-19 Rule Out 03/18/2024 03/18/2024 03/18/2024 8:30 PM CDT COVID-19 Rule Out 05/27/2024 05/27/2024 05/27/2024 7:16 PM CDT documented as of this encounter Care Teams Water Meter Installer Relationship Specialty [place] [address] [place] [address] PCP - General FAMILY PRACTICE 05/15/20 documented as of this encounter
--- OUTSIDE RECORDS SUMMARY | 2025-03-30 10:06 | XMS_ITS | Encounter Summary ---
Author Organization [facility] Address [address] [place] [address] Care Team Providers Care Inset Cutter Name Role Phone Nestor Fletcher MD Primary Care Provider [phone] Encounter Details Date Type Department Care Team (Late st Contact Info) Description 01/05/2023 [employer] Message Enc [facility] Medical Group Family & Internal Medicine [address] [address] Nestor Fletcher MD [address] [place] [address] Pain med appt Social History Tobacco Use Types Packs/Day [...] Assigned at Female 10/30/2019 8:35 AM SENIOR MARKETING MANAGER Legal Sex Female 10:55 PM CDT Gender Identity Female 10/30/2019 8:35 AM SENIOR MARKETING MANAGER Sexual Orientation Straight 10/30/2019 8: 35 AM SENIOR MARKETING MANAGER COVID-19 Exposure Response Date Recorded In the last 10 days, have yo u been in contact with someone who was confirmed or suspected to have Coronavirus/COVID-19? No / Unsure 12/26/2022 10:55 AM CDT documented as of this encounter [...] Description 04/03/2025 8:40 AM CDT Office Visit [facility] Medical [facility] Family & Internal Medicine [facility] [address] [place] [address] Nestor Fletcher MD [address] [place] [address] 08/26/2025 9:00 AM SENIOR MARKETING MANAGER Office Visit [facility]pecialty Care - [facility] [address] [place] [address] Dagoberto LevimagdaDO madhavi [address] [place] [address] documented as of this encounter Goals Goal [...] Out 09/11/2023 09/11/2023 09/11/2023 10:29 AM SENIOR MARKETING MANAGER COVID-19 Rule Out 03/18/2024 03/18/2024 03/18/2024 8:30 PM CDT COVID-19 Rule Out 05/27/2024 05/27/2024 05/27/2024 7:16 PM CDT Assessment Noted Time PHQ-9 Depression Total Score: 0 02/26/20 22 9:40 AM CDT documented as of this encounter Care Teams Inset Cutter Relationship Specialty [place] [address] [place] [address] PCP - General FAMILY PRACTICE 05/15/20 documented as of this encounter
--- OUTSIDE RECORDS SUMMARY | 2025-03-30 10:06 | XMS_ITS | Encounter Summary ---
Author Organization [facility] Address [address] [place] [address] Care Team Providers Care Last Ironer Name Role Phone Nestor Fletcher MD Primary Care Provider [phone] Encounter Details Date Type Department Care Team (Late st Contact Info) Description 11/11/2020 [employer] Message Enc [facility] Medical Group [facility] [address] [place] [phone] Carlos A Ocasio, ROSY [address] [place] [address] RE: Question Social History Tobacco Use [...] Sex Assigned at Female 10/30/2019 8:35 AM BRISTLE MACHINE OPERATOR Legal Sex Female 10:55 PM CDT Gender Identity Female 10/30/2019 8:35 AM BRISTLE MACHINE OPERATOR Sexual Orientation Straight 10/30/2019 8: 35 AM BRISTLE MACHINE OPERATOR COVID-19 Exposure Response Date Recorded In the last month, have you been in contact with someone who was confirmed or suspected to have Coronavirus / COVID-19? No / Unsure 11/14/2020 9:59 AM BRISTLE MACHINE OPERATOR documented as of this encounter Functional [...] Description 04/03/2025 8:40 AM CDT Office Visit [facility] Medical Group Family & Internal Medicine [facility] [address] [place] [address] Nestor Fletcher MD [address] [place] [address] 08/26/2025 9:00 AM BRISTLE MACHINE OPERATOR Office Visit [facility] Medical Group Multispecialty Care - [facility] [address] [place] [address] Francisco Levi DO [address] [place] [address] documented as of this encounter Visit Diagnoses [...] Rule Out 09/11/2023 09/11/2023 09/11/2023 10:29 AM BRISTLE MACHINE OPERATOR COVID-19 Rule Out 03/18/2024 03/18/2024 03/18/2024 8:30 PM CDT COVID-19 Rule Out 05/27/2024 05/27/2024 05/27/2024 7:16 PM CDT documented as of this encounter Care Teams Last Ironer Relationship Specialty [place] [address] [place] [address] PCP - General FAMILY PRACTICE 05/15/20 documented as of this encounter
--- OUTSIDE RECORDS SUMMARY | 2025-03-30 10:06 | XMS_ITS | Encounter Summary ---
Author Organization [facility] Address [address] [place] [address] Care Team Providers Care Epitaxial Reactor Operator Name Role Phone Nestor Fletcher MD Primary Care Provider [phone] Encounter Details Date Type Department Care Team (Latest Contact Info) Description 02/24/2021 [employer] Message Enc [facility] Medical Group Multispecialty Care - [facility] [address] [place] [address] Francisco Levi DO [address] [facility] [place] [address] RE: Follow Up/Update Social History Tobacco Use Types Packs/Day Years Used Date Smoking Tobacco: Some Days Cigarettes 0.3 29.7 Started: 1990; Last attempted to quit: 05/15/2020 Smokeless Tobacco: Never Comments:patient stated that she is down to 3-4 cigarettes a day Alcohol Use Standard Drinks/Week Comments Not Currently [...] Sex Assigned at Female 10/30/2019 8:35 AM ROUTE SALESPERSON Legal Sex Female 10:55 PM CDT Gender Identity Female 10/30/2019 8:35 AM ROUTE SALESPERSON Sexual Orientation Straight 10/30/2019 8: 35 AM ROUTE SALESPERSON COVID-19 Exposure Response Date Recorded In the last month, have you been in contact with someone who was confirmed or suspected to have Coronavirus / COVID-19? No / Unsure 02/19/2021 9:54 AM CDT documented as of this encounter [...] Description 04/03/2025 8:40 AM CDT Office Visit [facility] Medical Group Family & Internal Medicine [facility] [address] [place] [address] [place] Fletcher [place] [address] [place] [address] 08/26/2025 9:00 AM ROUTE SALESPERSON Office Visit [facility] Medical Group Multispecialty Care - [facility] [address] [place] [address] LeviFrancisco culp DO [address] [place] [address] documented as of this encounter Visit Diagnoses Not on filedocumented in this encounter Additional Health Concerns Infection Onset Date Last Indicated Resolved Time COVID-19 Rule Out 12/02/2021 12/02/2021 12/02/2021 4:28 PM CDT COVID-19 Rule Out 05/20/2023 05/20/2023 05/20/2023 6:44 PM CDT COVID-19 Rule Out 09/11/2023 09/11/2023 09/11/2023 10:29 AM ROUTE SALESPERSON COVID-19 Rule Out 03/18/2024 03/18/2024 03/18/2024 8:30 PM CDT COVID-19 Rule Out 05/27/2024 05/27/2024 05/27/2024 7:16 PM CDT documented as of this encounter Care Teams Epitaxial Reactor Operator Relationship Specialty [place] [address] [place] [address] PCP - General FAMILY PRACTICE 05/15/20 documented as of this encounter
--- OUTSIDE RECORDS SUMMARY | 2025-03-30 10:06 | XMS_ITS | Encounter Summary ---
Author Organization [facility] Address [address] [place] [address] Care Team Providers Care Painter Ski Edge Name Role Phone eNstor Fletcher MD Primary Care Provider [phone] Encounter Details Date Type Department Care Team (Late st Contact Info) Description 11/11/[address] [employer] [address] [facility] [address] [place] [address] [place] [address] [place] [address] RE: Question Social History Tobacco Use [...] Sex Assigned at Female 10/30/2019 8:35 AM FIRE PREVENTION CAPTAIN Legal Sex Female 10:55 PM CDT Gender Identity Female 10/30/2019 8:35 AM FIRE PREVENTION CAPTAIN Sexual Orientation Straight 10/30/2019 8: 35 AM FIRE PREVENTION CAPTAIN COVID-19 Exposure Response Date Recorded In the last month, have you been in contact with someone who was confirmed or suspected to have Coronavirus / COVID-19? No / Unsure 11/14/2020 9:59 AM FIRE PREVENTION CAPTAIN documented as of this encounter Functional Status [...] Office Visit [facility] Medical Group Family & Internal Medicine [facility] [address] [place] [address] Nestor Fletcher [place] [address] [place] [address] 08/26/2025 9:00 AM FIRE PREVENTION CAPTAIN Office Visit [facility] Medical [facility] Multispecialty [address] [place] [address] Francisco Levi DO [address] [place] [address] documented as of this encounter Visit Diagnoses [...] Rule Out 09/11/2023 09/11/2023 09/11/2023 10:29 AM FIRE PREVENTION CAPTAIN COVID-19 Rule Out 03/18/2024 03/18/2024 03/18/2024 8:30 PM CDT COVID-19 Rule Out 05/27/2024 05/27/2024 05/27/2024 7:16 PM CDT documented as of this encounter Care Teams Painter Ski Edge Relationship Specialty [place] [address] [place] [address] PCP - General FAMILY PRACTICE 05/15/20 documented as of this encounter
--- OUTSIDE RECORDS SUMMARY | 2025-03-30 10:06 | XMS_ITS | Encounter Summary ---
Author Organization [facility] Address [address] [place] [address] Care Team Providers Care Flight Deck Officer Name Role Phone Nestor Fletcher MD Primary Care Provider [phone] Encounter Details Date Type Department Care Team (Late st Contact Info) Description 02/01/2023 [employer] Message Enc [facility] Medical Group Family & Internal Medicine [address] [address] Nestor Fletcher MD [address] [place] [address] Meds Social History Tobacco Use Types [...] Sex Assigned at Female 10/30/2019 8:35 AM BOOM CRANE OPERATOR Legal Sex Female 10:55 PM CDT Gender Identity Female 10/30/2019 8:35 AM BOOM CRANE OPERATOR Sexual Orientation Straight 10/30/2019 8: 35 AM BOOM CRANE OPERATOR COVID-19 Exposure Response Date Recorded In the last 10 days, have yo u been in contact with someone who was confirmed or suspected to have Coronavirus/COVID-19? No / Unsure 02/02/2023 3:39 PM CDT documented as of this encounter [...] Medical Group Family & Internal Medicine - [facility] [address] [place] [address] Nestor Fletcher MD [address] [place] [phone] 08/26/2025 9:00 AM BOOM CRANE OPERATOR Office Visit [facility] Medical Group Multispecialty Care - [address] [place] [address] Francisco Levi, DO [address] [place] [address] documented as of this encounter Goals Goal [...] Rule Out 09/11/2023 09/11/2023 09/11/2023 10:29 AM BOOM CRANE OPERATOR COVID-19 Rule Out 03/18/2024 03/18/2024 03/18/2024 8:30 PM CDT COVID-19 Rule Out 05/27/2024 05/27/2024 05/27/2024 7:16 PM CDT Assessment Noted Time PHQ-9 Depression Total Score: 0 02/26/20 22 9:40 AM CDT documented as of this encounter Care Teams Flight Deck Officer Relationship Specialty [place] [address] [place] [address] PCP - General FAMILY PRACTICE 05/15/20 documented as of this encounter
--- OUTSIDE RECORDS SUMMARY | 2025-03-30 10:06 | XMS_ITS | Encounter Summary ---
Author Organization [facility] Address [address] [place] [address] Care Team Providers Care Sap Hana Developer Name Role Phone Nestor Fletcher MD Primary Care Provider [phone] Encounter Details Date Type Department Care Team (Late st Contact Info) Description 09/28/2022 [employer] Message Enc [facility] Medical Group Family & Internal Medicine [address] [address] Nestor Fletcher MD [address] [place] [address] Levothyroxine Social History Tobacco Use Types Packs/Day Years [...] Sex Assigned at Female 10/30/2019 8:35 AM CANDLEMAKER Legal Sex Female 10:55 PM CDT Gender Identity Female 10/30/2019 8:35 AM CANDLEMAKER Sexual Orientation Straight 10/30/2019 8: 35 AM CANDLEMAKER COVID-19 Exposure Response Date Recorded In the last 10 days, have yo u been in contact with someone who was confirmed or suspected to have Coronavirus/COVID-19? No / Unsure 10/01/2022 3:37 PM CANDLEMAKER documented as of this encounter Functional Status [...] Assessment Author Status No 06/06/2022 12:00 PM CINTHYAT Georgia Lovell RN Active * Because of a physical, mental, or emotional condition, do you have difficulty doing errands alone such as visiting a doctor's office or shopping? Answer Date of Assessment Author Status No 06/06/2022 12:00 PM CDT Georgia Lovell RN Active * Calculated C-SSRS Risk Score (Lifetime/Recent) Answer Date of Assessment Author Status No Risk Indicated 10/01/2022 3:[address] RN Active * [place] Suicide Severity Rating Scale (Screener/Recent Self-Report) Question Answer Date of Assessment Author Status 1. Wish to be (Past 1 Month) No 10/01/2022 3:38 PM Harpreet Love RN Active 2. Non-Specific Active Suicidal Thoughts (Past 1 Month) No 10/01/2022 3:38 PM Harpreet Love RN Active 6. Suicidal Behavior (Lifetime) No 10/01/2022 3:38 PM Harpreet Love RN Active documented as of this encounter [...] Description 04/03/2025 8:40 AM CDT Office Visit [facility] Family & Internal Medicine [facility] [address] [place] [phone] Nestor Fletcher [place] [id number] [place] [phone] 08/26/2025 9:00 AM CANDLEMAKER Office Visit [facility] Multispecialty Care - [facility] [address] [place] [address] Francisco Levi DO [address] [place] [address] documented as of this encounter Goals Goal Patient Goal Type Associated Problems Recent Progress Patient-Stated? Author Health - patient able to perform ADLs independently Lifestyle No Kareem Freeman i, RN documented as of this encounter Visit Diagnoses Not on filedocumented in this encounter Additional Health Concerns Infection Onset Date Last Indicated Resolved Time COVID-19 Rule Out 05/20/2023 05/20/2023 05/20/2023 6:44 PM CDT COVID-19 Rule Out 09/11/2023 09/11/2023 09/11/2023 10:29 AM CANDLEMAKER COVID-19 Rule Out 03/18/2024 03/18/2024 03/18/2024 8:30 PM CDT COVID-19 Rule Out 05/27/2024 05/27/2024 05/27/2024 7:16 PM CDT Assessment Noted Time PHQ-9 Depression Total Score: 0 02/26/20 9:40 AM CDT documented as of this encounter Care Teams Sap Hana Developer Relationship Specialty Start Date [place] Nestor Fletcher [place] [id number] [place] [address] PCP - General FAMILY PRACTICE 05/15/20 documented as of this encounter
--- OUTSIDE RECORDS SUMMARY | 2025-03-30 10:06 | XMS_ITS | Encounter Summary ---
Author Organization [facility] Address [address] [place] [address] Care Team Providers Care Hr Administrator Name Role Phone Nestor Fletcher MD Primary Care Provider [phone] Encounter Details Date Type Department Care Team (Late st Contact Info) Description 09/25/2022 [employer] Message Enc [facility] Medical Group Family & Internal Medicine [address] [address] Nestor Fletcher MD [address] [place] [address] Cough Social History Tobacco Use Types Packs/Day Years [...] Assigned at Female 10/30/2019 8:35 AM VISUAL BASIC .NET DEVELOPER Legal Sex Female 10:55 PM CDT Gender Identity Female 10/30/2019 8:35 AM VISUAL BASIC .NET DEVELOPER Sexual Orientation Straight 10/30/2019 8: 35 AM VISUAL BASIC .NET DEVELOPER COVID-19 Exposure Response Date Recorded In the last 10 days, have yo u been in contact with someone who was confirmed or suspected to have Coronavirus/COVID-19? No / Unsure 08/28/2022 5:46 PM VISUAL BASIC .NET DEVELOPER documented as of this encounter Functional Status [...] Office Visit [facility] Medical [facility] Family & Internal Medicine [facility] [address] [place] [address] Nestor Fletcher MD [address] [place] [address] 08/26/2025 9:00 AM VISUAL BASIC .NET DEVELOPER [facility] [place] [address] [place] [address] Gurmeet Francisco, [address] [place] [address] documented as of this encounter Goals Goal [...] Out 09/11/2023 09/11/2023 09/11/2023 10:29 AM VISUAL BASIC .NET DEVELOPER COVID-19 Rule Out 03/18/2024 03/18/2024 03/18/2024 8:30 PM CDT COVID-19 Rule Out 05/27/2024 05/27/2024 05/27/2024 7:16 PM CDT Assessment Noted Time PHQ-9 Depression Total Score: 0 02/26/20 22 9:40 AM CDT documented as of this encounter Care Teams Hr Administrator Relationship Specialty [place] [address] [place] [address] PCP - General FAMILY PRACTICE 05/15/20 documented as of this encounter
--- OUTSIDE RECORDS SUMMARY | 2025-03-30 10:06 | XMS_ITS | Encounter Summary ---
Author Organization [facility] Address [address] [place] [address] Care Team Providers Care Cleaner Housekeeping Name Role Phone Nestor Fletcher MD Primary Care Provider [phone] Encounter Details Date Type Department Care Team (Late st Contact Info) Description 10/27/2020 [employer] Message Enc [facility] Medical Group Multispecialty Care - [facility] [address] [place] [address] Francisco Levi DO [address] [place] [address] RE: Other Social History Tobacco Use Types [...] Sex Assigned at Female 10/30/2019 8:35 AM AWAKE OVERNIGHT COUNSELOR Legal Sex Female 10:55 PM CDT Gender Identity Female 10/30/2019 8:35 AM AWAKE OVERNIGHT COUNSELOR Sexual Orientation Straight 10/30/2019 8: 35 AM AWAKE OVERNIGHT COUNSELOR COVID-19 Exposure Response Date Recorded In the last month, have you been in contact with someone who was confirmed or suspected to have Coronavirus / COVID-19? No / Unsure 10/30/2020 3:47 PM AWAKE OVERNIGHT COUNSELOR documented as of this encounter Functional [...] Description 04/03/2025 8:40 AM CDT Office Visit [facility] Medical Group Family & Internal Medicine [facility] [address] [place] [address] [place] Fletcher [place] [address] [place] [phone] 08/26/2025 9:00 AM AWAKE OVERNIGHT COUNSELOR [facility] - [facility] [address] [place] [address] Francisco Levi DO [address] [place] [address] documented as of this encounter Visit Diagnoses [...] Rule Out 09/11/2023 09/11/2023 09/11/2023 10:29 AM AWAKE OVERNIGHT COUNSELOR COVID-19 Rule Out 03/18/2024 03/18/2024 03/18/2024 8:30 PM CDT COVID-19 Rule Out 05/27/2024 05/27/2024 05/27/2024 7:16 PM CDT documented as of this encounter Care Teams Cleaner Housekeeping Relationship Specialty [place] [address] [place] [address] PCP - General FAMILY PRACTICE 05/15/20 documented as of this encounter
--- OUTSIDE RECORDS SUMMARY | 2025-03-30 10:06 | XMS_ITS | Encounter Summary ---
Author Organization [facility] Address [address] [place] [address] Care Team Providers Care Optometrist Owner Name Role Phone Nestor Fletcher MD Primary Care Provider [phone] Encounter Details Date Type Department Care Team (Late st Contact Info) Description 08/05/2022 C[employer] Message Enc [facility] Medical Group Multispecialty Care - [facility] [address] [facility] [place] [phone] Pura Velazquez APRN [address] [facility] [address] [place] [address] Forgot Social History Tobacco Use Types Packs/Day Years [...] Sex Assigned at Female 10/30/2019 8:35 AM CHEMICAL RESEARCH TECHNICIAN Legal Sex Female 10:55 PM CDT Gender Identity Female 10/30/2019 8:35 AM CHEMICAL RESEARCH TECHNICIAN Sexual Orientation Straight 10/30/2019 8: 35 AM CHEMICAL RESEARCH TECHNICIAN COVID-19 Exposure Response Date Recorded In the last 10 days, have yo u been in contact with someone who was confirmed or suspected to have Coronavirus/COVID-19? No / Unsure 08/08/2022 8:25 AM CHEMICAL RESEARCH TECHNICIAN documented as of this encounter Functional [...] this encounter Progress Notes * Pura Velazquez, GRINDER TENDER - 08/08/2022 9:[address] cervical spine from 08/08/22 personally reviewed. No e/o hardware failure including subsidence, screw fractures or lucency. Spinal canal diffusely without any concerning spinal stenosis. No obvious foraminal narrowing at C5-6, C6-7. CT c-spine without any etiology to patient's reoccurring radicular arm pain or neck pain. Separately, unclear etiology of patient's reported arm weakness that she sent through [employer] message last Monday. This was not discussed at her appointment. I would be happy to have her come in for a follow up appointment with one of the providers to re-examine her; however, spine imaging without any etiology to weakness either. I suspect she may have strained her neck when helping the kitten. We can try steroid pulse if she'd like. No lifting restrictions from a neurosurgery perspective. Continue calcium, vitamin d3. F/u in 6 weeks with cervical x-ray. ICAL RESEARCH TECHNICIAN * Varsha Almonte MA - 08/05/2022 1:57 PM CST Sending to Pura ICAL RESEARCH TECHNICIAN documented in this encounter Plan of Treatment Upcoming Encounters Date Type Department Care Team (Late st Contact Info) Description 04/03/2025 8:40 AM CDT Office Visit [facility] Medical Group Family & Internal Medicine - [place] [address] [place] [address] Nestor Fletcher [place] [address] [place] [address] 08/26/2025 9:00 AM CHEMICAL RESEARCH TECHNICIAN Office Visit [facility] Multispecialty Care - [facility] [address] [facility] [address] [place] [phone] Francisco Levi DO [address] [facility] [address] [place] [id number] documented as of this encounter Goals Goal [...] Rule Out 09/11/2023 09/11/2023 09/11/2023 10:29 AM CHEMICAL RESEARCH TECHNICIAN COVID-19 Rule Out 03/18/2024 03/18/2024 03/18/2024 8:30 PM CDT COVID-19 Rule Out 05/27/2024 05/27/2024 05/27/2024 7:16 PM CDT Assessment Noted Time PHQ-9 Depression Total Score: 0 02/26/20 22 9:40 AM CDT documented as of this encounter Care Teams Optometrist Owner Relationship Specialty [place] [address] [place] [address] PCP - General FAMILY PRACTICE 05/15/20 documented as of this encounter
--- OUTSIDE RECORDS SUMMARY | 2025-03-30 10:06 | XMS_ITS | Encounter Summary ---
Author Organization [facility] Address [address] [place] [address] Care Team Providers Care String Top Sealer Name Role Phone Nestor Fletcher MD Primary Care Provider [phone] Encounter Details Date Type Department Care Team (Late st Contact Info) Description 08/03/2022 [facility] Message Enc [facility] Medical Group Family & Internal Medicine [address] [address] Nestor Fletcher MD [address] [place] [address] Joaquina Social History Tobacco Use Types Packs/Day Years [...] Sex Assigned at Female 10/30/2019 8:35 AM KILN LABOURER Legal Sex Female 10:55 PM CDT Gender Identity Female 10/30/2019 8:35 AM KILN LABOURER Sexual Orientation Straight 10/30/2019 8: 35 AM KILN LABOURER COVID-19 Exposure Response Date Recorded In the last 10 days, have yo u been in contact with someone who was confirmed or suspected to have Coronavirus/COVID-19? No / Unsure 08/01/2022 2:43 PM KILN LABOURER documented as of this encounter Functional Status [...] 04/03/2025 8:40 AM CDT Office Visit [facility] Family & Internal Medicine [facility] [address] [place] [address] Nestor Fletcher MD [address] [place] [address] 08/26/2025 9:00 AM KILN LABOURER [facility] [address] [place] [address] Gurmeet FranciscoDO [address] [place] [address] documented as of this encounter Goals Goal [...] Rule Out 09/11/2023 09/11/2023 09/11/2023 10:29 AM KILN LABOURER COVID-19 Rule Out 03/18/2024 03/18/2024 03/18/2024 8:30 PM CDT COVID-19 Rule Out 05/27/2024 05/27/2024 05/27/2024 7:16 PM CDT Assessment Noted Time PHQ-9 Depression Total Score: 0 02/26/20 22 9:40 AM CDT documented as of this encounter Care Teams String Top Sealer Relationship Specialty [place] [address] [place] [address] PCP - General FAMILY PRACTICE 05/15/20 documented as of this encounter
--- OUTSIDE RECORDS SUMMARY | 2025-03-30 10:06 | XMS_ITS | Encounter Summary ---
Author Organization [facility] Address [address] [place] [address] Care Team Providers Care Parole Board Member Name Role Phone Nestor Fletcher MD Primary Care Provider [phone] Encounter Details Date Type Department Care Team (Late st Contact Info) Description 02/26/2021 [employer] Message Enc [facility] Medical Group Family & Internal Medicine [address] [address] Nestor Fletcher MD [address] [place] [address] RE: Question Social History Tobacco Use [...] Sex Assigned at Female 10/30/2019 8:35 AM CO SUPERVISOR GROUNDS AND LANDSCAPE Legal Sex Female 10:55 PM CDT Gender Identity Female 10/30/2019 8:35 AM CO SUPERVISOR GROUNDS AND LANDSCAPE Sexual Orientation Straight 10/30/2019 8: 35 AM CO SUPERVISOR GROUNDS AND LANDSCAPE COVID-19 Exposure Response Date Recorded In the [...] documented in this encounter Progress Notes * Barbara England NP - 02/26/2021 12:22 PM CDT I have never seen this woman and I would like to let Dr. Fletcher decide on what to give her, I will write for nicotine patches, but given she is on benzos and narcotics, I will let him decide on Chantix when he gets back. Thanks documented in this encounter Plan of Treatment Upcoming Encounters Date Type Department Care Team (Radha benson Contact Info) Description 04/03/2025 8:40 AM CDT Office Visit [facility] Family & Internal Medicine - [place] [address] [place] [phone] [place] [address] [place] [address] 08/26/2025 9:00 AM CO SUPERVISOR GROUNDS AND LANDSCAPE Office Visit [facility] Multispecialty Care - [facility] [address] [place] [address] Francisco Levi DO [address] [place] [address] documented as of this encounter Visit Diagnoses Not on filedocumented in this encounter Additional Health Concerns Infection Onset Date Last Indicated Resolved Time COVID-19 Rule Out 12/02/2021 12/02/2021 12/02/2021 4:28 PM CDT COVID-19 Rule Out 05/20/2023 05/20/2023 05/20/2023 6:44 PM CDT COVID-19 Rule Out 09/11/2023 09/11/2023 09/11/2023 10:29 AM CO SUPERVISOR GROUNDS AND LANDSCAPE COVID-19 Rule Out 03/18/2024 03/18/2024 03/18/2024 8:30 PM CDT COVID-19 Rule Out 05/27/2024 05/27/2024 05/27/2024 7:16 PM CDT documented as of this encounter Care Teams Parole Board Member Relationship Specialty [place] [address] [place] [address] PCP - General FAMILY PRACTICE 05/15/20 documented as of this encounter
--- OUTSIDE RECORDS SUMMARY | 2025-03-30 10:06 | XMS_ITS | Encounter Summary ---
Author Organization [facility] Address [address] [place] [address] Care Team Providers Care Surveyor Name Role Phone Nestor Fletcher MD Primary Care Provider [phone] Encounter Details Date Type Department Care Team (Late st Contact Info) Description 01/13/2021 Zhui [employer] Message Enc [facility] Medical Group Family & Internal Medicine [address] [address] Nestor Fletcher MD [address] [place] [address] RE: Question Social History Tobacco Use [...] Sex Assigned at Female 10/30/2019 8:35 AM JUNIOR NETWORK ENGINEER Legal Sex Female 10:55 PM CDT Gender Identity Female 10/30/2019 8:35 AM JUNIOR NETWORK ENGINEER Sexual Orientation Straight 10/30/2019 8: 35 AM JUNIOR NETWORK ENGINEER COVID-19 Exposure Response Date Recorded In the last month, have you been in contact with someone who was confirmed or suspected to have Coronavirus / COVID-19? No / Unsure 01/11/2021 8:25 AM CDT documented as of this encounter [...] Description 04/03/2025 8:40 AM CDT Office Visit [facility] Medical [facility] Family & Internal Medicine [facility] [address] [place] [address] [place] Fletcher [place] [id number] [place] [address] 08/26/2025 9:00 AM JUNIOR NETWORK ENGINEER Office Visit [facility] Multispecialty [facility] [address] [place] [address] Francisco Levi DO [address] [place] [address] documented as of this encounter Visit Diagnoses Not on filedocumented in this encounter Additional Health Concerns Infection Onset Date Last Indicated Resolved Time COVID-19 Rule Out 12/02/2021 12/02/2021 12/02/2021 4:28 PM CDT COVID-19 Rule Out 05/20/2023 05/20/2023 05/20/2023 6:44 PM CDT COVID-19 Rule Out 09/11/2023 09/11/2023 09/11/2023 10:29 AM JUNIOR NETWORK ENGINEER COVID-19 Rule Out 03/18/2024 03/18/2024 03/18/2024 8:30 PM CDT COVID-19 Rule Out 05/27/2024 05/27/2024 05/27/2024 7:16 PM CDT documented as of this encounter Care Teams Surveyor Relationship Specialty [place] [address] [place] [address] PCP - General FAMILY PRACTICE 05/15/20 documented as of this encounter
--- OUTSIDE RECORDS SUMMARY | 2025-03-30 10:06 | XMS_ITS | Encounter Summary ---
Author Organization [facility] Address [address] [place] [address] Care Team Providers Care Fleece Tier Name Role Phone Nestor Fletcher MD Primary Care Provider [phone] Encounter Details Date Type Department Care Team (Late st Contact Info) Description 10/19/2020 [email or web address] Message Enc [facility] Medical Group Family & Internal Medicine [facility] [address] [place] [address] Natali Polo APNP [address] [facility] [address] [place] [address] RE: Question Social History Tobacco Use [...] Sex Assigned at Female 10/30/2019 8:35 AM MEDICAL ILLUSTRATOR Legal Sex Female 10:55 PM CDT Gender Identity Female 10/30/2019 8:35 AM MEDICAL ILLUSTRATOR Sexual Orientation Straight 10/30/2019 8: 35 AM MEDICAL ILLUSTRATOR COVID-19 Exposure Response Date Recorded In the last month, have you been in contact with someone who was confirmed or suspected to have Coronavirus / COVID-19? No / Unsure 10/16/2020 9:30 PM MEDICAL ILLUSTRATOR documented as of this encounter Functional Status [...] documented in this encounter Progress Notes * Daisy Rico RN - 10/20/2020 8:32 AM CST Please advise CAL ILLUSTRATOR documented in this encounter Plan of Treatment Upcoming Encounters Date Type Department Care Team (Late st Contact Info) Description 04/03/2025 8:40 AM CDT Office Visit [facility] Medical Group Family & Internal Medicine [facility] [address] [place] [address] Nestor Fletcher [place] [address] [place] [address] 08/26/2025 9:00 AM MEDICAL ILLUSTRATOR Office Visit [facility] Medical Group Multispecialty Care - [facility] [address] [place] [address] Francisco Levi DO [address] [place] [address] documented as of this encounter Visit Diagnoses [...] Rule Out 09/11/2023 09/11/2023 09/11/2023 10:29 AM MEDICAL ILLUSTRATOR COVID-19 Rule Out 03/18/2024 03/18/2024 03/18/2024 8:30 PM CDT COVID-19 Rule Out 05/27/2024 05/27/2024 05/27/2024 7:16 PM CDT documented as of this encounter Care Teams Fleece Tier Relationship Specialty [place] [address] [place] [address] PCP - General FAMILY PRACTICE 05/15/20 documented as of this encounter
--- OUTSIDE RECORDS SUMMARY | 2025-03-30 10:06 | XMS_ITS | Encounter Summary ---
Author Organization [facility] Address [address] [place] [address] Care Team Providers Care Director Of Slot Operations Name Role Phone Nestor Fletcher MD Primary Care Provider [phone] Encounter Details Date Type Department Care Team (Late st Contact Info) Description 12/26/2022 [employer] Message Enc [facility] Medical Group Family & Internal Medicine [address] [address] Nestor Fletcher MD [address] [place] [address] Pain Social History Tobacco Use Types Packs/Day Years [...] Sex Assigned at Female 10/30/2019 8:35 AM LINUX DEVOPS ENGINEER Legal Sex Female 10:55 PM CDT Gender Identity Female 10/30/2019 8:35 AM LINUX DEVOPS ENGINEER Sexual Orientation Straight 10/30/2019 8: 35 AM LINUX DEVOPS ENGINEER COVID-19 Exposure Response Date Recorded In [...] of Assessment Author Status No Risk Indicated 12/26/2022 3:38 PM CDT Kayli Palencia RN Active * [place] Suicide Severity Rating Scale (Screener/Recent Self-Report) Question Answer Date of Assessment Author Status 1. Wish to be (Past 1 Month) No 12/26/2022 3:38 PM CDT Marina Palencia RN Acti ve 2. Non-Specific Active Suicidal Thoughts (Past 1 Month) No 12/26/2022 3:38 PM CDT Marina Palencia RN Acti ve 6. Suicidal Behavior (Lifetime) No 12/26/2022 3:38 PM CDT Marina Palencia RN Acti ve documented as of this encounter Mental Status [...] Description 04/03/2025 8:40 AM CDT Office Visit [facility] Family & Internal Medicine [facility] [address] [place] [address] [place] [address] [place] [address] 08/26/2025 9:00 AM LINUX DEVOPS ENGINEER Office Visit [facility] Multispecialty Care - [facility] [address] [place] [address] Francisco Levi DO [address] [place] [address] documented as of this encounter Goals Goal [...] Rule Out 09/11/2023 09/11/2023 09/11/2023 10:29 AM LINUX DEVOPS ENGINEER COVID-19 Rule Out 03/18/2024 03/18/2024 03/18/2024 8:30 PM CDT COVID-19 Rule Out 05/27/2024 05/27/2024 05/27/2024 7:16 PM CDT Assessment Noted Time PHQ-9 Depression Total Score: 0 02/26/20 9:40 AM CDT documented as of this encounter Care Teams Director Of Slot Operations Relationship Specialty [place] [address] [place] [address] PCP - General FAMILY PRACTICE 05/15/20 documented as of this encounter
--- OUTSIDE RECORDS SUMMARY | 2025-03-30 10:06 | XMS_ITS | Encounter Summary ---
Author Organization [facility] Address [address] [place] [address] Care Team Providers Care Galvanometer Assembler Name Role Phone Nestor Fletcher MD Primary Care Provider [phone] Encounter Details Date Type Department Care Team (Late st Contact Info) Description 08/31/2022 Tr[employer] Message Enc [facility] Medical Group Family & Internal Medicine [address] [address] Nestor Fletcher MD [address] [place] [address] Plasma donation Social History Tobacco Use Types Packs/Day Years [...] Sex Assigned at Female 10/30/2019 8:35 AM RETAIL SPECIALIST Legal Sex Female 10:55 PM CDT Gender Identity Female 10/30/2019 8:35 AM RETAIL SPECIALIST Sexual Orientation Straight 10/30/2019 8: 35 AM RETAIL SPECIALIST COVID-19 Exposure Response Date Recorded In the last 10 days, have yo u been in contact with someone who was confirmed or suspected to have Coronavirus/COVID-19? No / Unsure 08/28/2022 5:46 PM RETAIL SPECIALIST documented as of this encounter Functional Status [...] [facility] Medical [facility] Family & Internal Medicine [facility] [address] [place] [address] Nestor Fletcher MD [address] [place] [address] 08/26/2025 9:00 AM RETAIL SPECIALIST [facility] [address] [place] [address] Gurmeet Francisco, [address] [place] [address] documented as of this encounter Goals Goal [...] Rule Out 09/11/2023 09/11/2023 09/11/2023 10:29 AM RETAIL SPECIALIST COVID-19 Rule Out 03/18/2024 03/18/2024 03/18/2024 8:30 PM CDT COVID-19 Rule Out 05/27/2024 05/27/2024 05/27/2024 7:16 PM CDT Assessment Noted Time PHQ-9 Depression Total Score: 0 02/26/20 22 9:40 AM CDT documented as of this encounter Care Teams Galvanometer Assembler Relationship Specialty [place] [address] [place] [address] PCP - General FAMILY PRACTICE 05/15/20 documented as of this encounter
--- OUTSIDE RECORDS SUMMARY | 2025-03-30 10:06 | XMS_ITS | Encounter Summary ---
Author Organization [facility] Address [address] [place] [address] Care Team Providers Care Escrow Closer Name Role Phone Nestor Fletcher MD Primary Care Provider [phone] Encounter Details Date Type Department Care Team (Late st Contact Info) Description 11/05/2020 Quture Message [facility] [address] [place] [address] [place] [address] [place] [address] RE: Question Social History Tobacco Use Types Packs/Day Years Used Date Smoking Tobacco: Some Days Cigarettes 0.3 29.7 Started: 1990; Last attempted to quit: 05/15/2020 Smokeless Tobacco: Never Comments:Trying my best to q uit. Smoking less. Alcohol Use Standard Drinks/Week Comments Yes 0 [...] Sex Assigned at Female 10/30/2019 8:35 AM LITHOPRESS OPERATOR Legal Sex Female 10:55 PM CDT Gender Identity Female 10/30/2019 8:35 AM LITHOPRESS OPERATOR Sexual Orientation Straight 10/30/2019 8: 35 AM LITHOPRESS OPERATOR COVID-19 Exposure Response Date Recorded In the last month, have you been in contact with someone who was confirmed or suspected to have Coronavirus / COVID-19? No / Unsure 11/05/2020 8:17 AM LITHOPRESS OPERATOR documented as of this encounter Functional [...] HOSPITAL Medical Group Family & Internal Medicine [facility] [address] [place] [address] Nest[place] Fletcher [place] [address] [place] [address] 08/26/2025 9:00 AM LITHOPRESS OPERATOR Office Visit [facility] Medical Group Multispecialty [address] [place] [address] Francisco Levi DO [address] [place] [address] documented as of this encounter Visit Diagnoses [...] Rule Out 09/11/2023 09/11/2023 09/11/2023 10:29 AM LITHOPRESS OPERATOR COVID-19 Rule Out 03/18/2024 03/18/2024 03/18/2024 8:30 PM CDT COVID-19 Rule Out 05/27/2024 05/27/2024 05/27/2024 7:16 PM CDT documented as of this encounter Care Teams Escrow Closer Relationship Specialty [place] [address] [place] [address] PCP - General FAMILY PRACTICE 05/15/20 documented as of this encounter
--- OUTSIDE RECORDS SUMMARY | 2025-03-30 10:06 | XMS_ITS | Encounter Summary ---
Author Organization [facility] Address [address] [place] [address] Care Team Providers Care Business Intern Name Role Phone Nestor Fletcher MD Primary Care Provider [phone] Encounter Details Date Type Department Care Team (Latest Contact Info) Description 11/18/2020 Best Response Strategies Message Enc [facility] Medical Group Foot & Ankle Specialists [facility] [address] [place] [address] Carlos A Ocasio, DPBrinda [address] [place] [address] RE: Follow Up/Update Social History Tobacco Use [...] Sex Assigned at Female 10/30/2019 8:35 AM SIGNAL PROCESSING ENGINEER Legal Sex Female 10:55 PM CDT Gender Identity Female 10/30/2019 8:35 AM SIGNAL PROCESSING ENGINEER Sexual Orientation Straight 10/30/2019 8: 35 AM SIGNAL PROCESSING ENGINEER COVID-19 Exposure Response Date Recorded In [...] Description 04/03/2025 8:40 AM CDT Office Visit [facility] Medical [facility] Family & Internal Medicine [facility] [address] [place] [address] [place] Fletcher [place] [address] [place] [id number] 08/26/2025 9:00 AM SIGNAL PROCESSING ENGINEER Office Visit [facility] Multispecialty Care - [facility]'s [address] [place] [address] Francisco Levi DO [address] [place] [address] documented as of this encounter Visit Diagnoses Not on filedocumented in this encounter Additional Health Concerns Infection Onset Date Last Indicated Resolved Time COVID-19 Rule Out 01/05/2021 01/05/2021 01/05/2021 5:26 PM CDT COVID-19 Rule Out 12/02/2021 12/02/2021 12/02/2021 4:28 PM CDT COVID-19 Rule Out 05/20/2023 05/20/2023 05/20/2023 6:44 PM CDT COVID-19 Rule Out 09/11/2023 09/11/2023 09/11/2023 10:29 AM SIGNAL PROCESSING ENGINEER COVID-19 Rule Out 03/18/2024 03/18/2024 03/18/2024 8:30 PM CDT COVID-19 Rule Out 05/27/2024 05/27/2024 05/27/2024 7:16 PM CDT documented as of this encounter Care Teams Business Intern Relationship Specialty [place] [address] [place] [address] PCP - General FAMILY PRACTICE 05/15/20 documented as of this encounter
--- OUTSIDE RECORDS SUMMARY | 2025-03-30 10:06 | XMS_ITS | Encounter Summary ---
Author Organization [facility] Address [address] [place] [address] Care Team Providers Care Combat Systems Engineer Name Role Phone Nestor Fletcher MD Primary Care Provider [phone] Encounter Details Date Type Department Care Team (Late st Contact Info) Description 11/11/2020 Prep for Procedure [facility] [address] [place] [address] Carlos A Ocasio, DPBrinda [address] [place] [address] Social History Tobacco Use Types Packs/Day Years [...] Sex Assigned at Female 10/30/2019 8:35 AM WINE SPECIALIST Legal Sex Female 10:55 PM CDT Gender Identity Female 10/30/2019 8:35 AM WINE SPECIALIST Sexual Orientation Straight 10/30/2019 8: 35 AM WINE SPECIALIST COVID-19 Exposure Response Date Recorded In the last month, have you been in contact with someone who was confirmed or suspected to have Coronavirus / COVID-19? No / Unsure 11/14/2020 9:59 AM WINE SPECIALIST documented as of this encounter Functional [...] CENTER Medical Group Family & Internal Medicine [facility] [address] [place] [address] Nestor Fletcher MD [id number] [place] [address] 08/26/2025 9:00 AM WINE SPECIALIST Office Visit [facility] Medical Group Multispecialty [address] [place] [address] Francisco Levi DO [address] [place] [address] documented as of this encounter Results * MRSA SCREENING (11/14/2020 9:59 AM WINE SPECIALIST) SPEC DESCRIPTION NASAL 11/14/2020 9:59 AM WINE SPECIALIST [facility] SPECIAL REQUESTS NO SPECIAL REQUEST 11/14/2020 9:59 AM WINE SPECIALIST [facility] CULTURE RESULT NO METHICILLIN RESISTANT STAPHYLOCOCCUS AUREUS ISOLATED 11/15/2020 11:13 AM CDT [facility] SPECIMEN FROM INTERNAL NOSE / Unknown 11/14/2020 9:59 AM WINE SPECIALIST 11/14/2020 10:17 AM WINE SPECIALIST Carlos A Ocasio DPM MICROBIOLOGY - GENERAL ORDERABLE S Final Result [facility] [address] [place] [address], * PRE-SURGICAL/PRE-PROCEDURE CORONAVIRUS (COVID 19) (11/14/2020 9:59 AM WINE SPECIALIST) CORONAVIRUS SARS COV 2 PCR (RESP) NOT DETECTED NOT DETECTED 11/15/2020 10:25 AM CDT [facility] Comment: A Not Detected (negative) test result [...] providers and patients using the following websites: https://www.Zhaogang[employer]/home/Covid-19/HCP/QuestIVD/fact- sheet.html https://www.[employer]ang.[employer]/home/Covid-19/Patients/ QuestIVD/fact-sheet.html This test has been authorized by the FDA under an Emergency Use Authorization (EUA) for use by authorized laboratories. Due to the current public health emergency, [facility] is receiving a high volume of samples [...] Methodology: Nucleic Acid Amplification Test (NAAT) includes RT-PCR or TMA Additional information about COVID-19 can be found at the [employer] website: www.Blinkbuggy.[employer]/Covid19. Test performed at [facility] [id number] [place] [phone] Director: BURT GALLOWAY DO,MPH FIRST TEST NO 11/14/2020 9:59 AM [facility] EMPLOYED IN HEALTHCARE NO 11/14/2020 9:59 AM [facility] SYMPTOMATIC DEFINED BY CDC NO 11/14/2020 9:59 AM [facility] DATE OF SYMPTOM ONSET UNKNOWN 11/14/2020 10:20 AM [facility] HOSPITALIZATION STATUS NO 11/14/2020 9:59 AM [facility] PATIENT IN ICU NO 11/14/2020 9:59 AM [facility] RESIDENT OF [facility] NO 11/14/2020 9:59 AM [facility] NOT 11/14/2020 9:59 AM WINE SPECIALIST [facility] PATIENT'S RACE WHITE OR 11/14/2020 9:59 AM WINE SPECIALIST [facility] ETHNICITY NONHISPANIC 11/14/2020 9:59 AM WINE SPECIALIST [facility] SOURCE (QST) NASOPHARYNGEAL SWAB 11/14/2020 9:59 AM WINE SPECIALIST [facility] NASOPHARYNGEAL SWAB / Unknown 11/14/2020 9:59 AM WINE SPECIALIST us Carlos A Ocasio DPM MICROBIOLOGY - GENERAL ORDERABLE S Final Result [facility] [address] [place] [address], [employer] [address] [place] [address], documented in this encounter Visit Diagnoses Diagnosis Preop testing- Primary Preoperative examination, unspecified documented in this encounter Additional Health Concerns Infection Onset Date Last Indicated Resolved Time COVID-19 Rule Out 11/14/2020 11/14/2020 11/15/2020 10:25 AM CDT COVID-19 Rule Out 01/05/2021 01/05/2021 01/05/2021 5:26 PM CDT COVID-19 Rule Out 12/02/2021 12/02/2021 12/02/2021 4:28 PM CDT COVID-19 Rule Out 05/20/2023 05/20/2023 05/20/2023 6:44 PM CDT COVID-19 Rule Out 09/11/2023 09/11/2023 09/11/2023 10:29 AM WINE SPECIALIST COVID-19 Rule Out 03/18/2024 03/18/2024 03/18/2024 8:30 PM CDT COVID-19 Rule Out 05/27/2024 05/27/2024 05/27/2024 7:16 PM CDT documented as of this encounter Care Teams Combat Systems Engineer Relationship Specialty [place] [address] [place] [address] PCP - General FAMILY PRACTICE 05/15/20 documented as of this encounter
--- OUTSIDE RECORDS SUMMARY | 2025-03-30 10:06 | XMS_ITS | Encounter Summary ---
Author Organization [facility] Address [address] [place] [address] Care Team Providers Care Car Repair Supervisor Name Role Phone Nestor Fletcher MD Primary Care Provider [phone] Encounter Details Date Type Department Care Team (Late st Contact Info) Description 02/02/2023 Central Test Message Enc [facility] Medical Group Foot & Ankle Specialists [facility] [id number] [place] [address] Carlos A Ocasio, DPBrinda [address] [place] [address] Foot Social History Tobacco Use Types Packs/Day Years [...] Sex Assigned at Female 10/30/2019 8:35 AM DOOR CORE ASSEMBLER Legal Sex Female 10:55 PM CDT Gender Identity Female 10/30/2019 8:35 AM DOOR CORE ASSEMBLER Sexual Orientation Straight 10/30/2019 8: 35 AM DOOR CORE ASSEMBLER COVID-19 Exposure Response Date Recorded In [...] CDT Office Visit [facility] Medical [facility] Family & Internal Medicine - [place] [address] [place] [address] [place] [address] [place] [address] 08/26/2025 9:00 AM DOOR CORE ASSEMBLER Office Visit [facility] Medical [facility] Multispecialty Care - [address] [place] [address] Gurmeet Mazinmadhavi, [address] [facility] [address] [place] [address] documented as of this encounter Goals Goal [...] Rule Out 09/11/2023 09/11/2023 09/11/2023 10:29 AM DOOR CORE ASSEMBLER COVID-19 Rule Out 03/18/2024 03/18/2024 03/18/2024 8:30 PM CDT COVID-19 Rule Out 05/27/2024 05/27/2024 05/27/2024 7:16 PM CDT Assessment Noted Time PHQ-9 Depression Total Score: 0 02/26/20 22 9:40 AM CDT documented as of this encounter Care Teams Car Repair Supervisor Relationship Specialty [place] [address] [place] [address] PCP - General FAMILY PRACTICE 05/15/20 documented as of this encounter
--- OUTSIDE RECORDS SUMMARY | 2025-03-30 10:06 | XMS_ITS | Clinical Summary ---
Author Organization [facility] [address] [facility] Address [address] [place] [address] Care Team Providers Care Instructor Dancing Name Role Phone Nestor Fletcher MD Primary Care Provider [phone] Moshe Hess MD Unavailable [phone] Allergies Active Allergy Reactions Criticality Noted [...] on file Legal Sex Female 2:16 AM ANIMAL GENETICIST Gender Identity Not on file Sexual Orientation Not on file Obstetrics History Last Filed Vital Signs Vital Sign Reading Time Taken Comments Blood Pressure 161/77 09/30/2024 1:43 PM ANIMAL GENETICIST Pulse 78 09/30/2024 1:43 PM ANIMAL GENETICIST Temperature 37.4 C (99.3 F) 09/30/2024 12:43 PM ANIMAL GENETICIST Respiratory Rate 11 09/30/2024 1:43 PM ANIMAL GENETICIST Oxygen Saturation 96% 09/30/2024 1:43 PM ANIMAL GENETICIST Inhaled Oxygen Concentration - - Weight 112 kg (247 lb) 09/30/2024 10:26 AM ANIMAL GENETICIST Height 165.1 cm (5' 5) 09/30/2024 10:26 AM ANIMAL GENETICIST Body Mass Index 41.1 09/30/2024 10:26 AM ANIMAL GENETICIST Plan of Treatment Health Maintenance Due Date Last Done Comments Breast Cancer Screening-Mammogram 1976 Cervical Cancer Screening 1976 Colon Cancer Screening-Colonoscopy 1976 Depression Screening 1976 Hepatitis C Screening 1976 Hepatitis B Screening 1994 Regular Well Visit/Exam 18-64 1994 Pneumococcal vaccine <65 (1 of 2 - PCV) 12/22/1995 Covid-19 Vaccine (3 - 2023-2 5 season) 2024 12/24/2020, 11/26/2020 Influenza Vaccine (#1) 2025 , 07/14/2022, 07/05/2021, Additional history exists DTaP/Tdap/Td Vaccine (2 - Td or Tdap) 02/21/2027 02/21/2017 Insurance MEDICARE Member Subscriber Plan / Payer ( fective 2024-Present) Name:Renu Marquze Relation to Subscriber:Self Name:Renu Marquez Payer ID:[id number] (NAIC) Group ID:Not on file Type:MEDICAID RISK OTHER Address: [address] [place] Member Subscriber Plan / Payer ( fective 2024-Present) Name:Renu Marquez Relation to Subscriber:Self Name:Renu Marquez Payer ID:[id number] (NAIC) Group ID:Not on file Type:MEDICAID RISK OTHER Address: [address] Advance Directives For more information, please contact: [phone] * Full Code (Latest Code Status on File) Date Activated Date Inactivated Comments 09/30/2024 10:26 AM 09/30/2024 5:58 PM Care Teams Instructor Dancing Relationship Specialty Start Date End Date Nestor Fletcher MD PCP - General Family Practice 02/09/21 Moshe Hess MD [address] [place] [address] Consulting Physician Rheumatology 02/09/21
--- OUTSIDE RECORDS SUMMARY | 2025-03-30 10:06 | XMS_ITS | Encounter Summary ---
Author Organization [facility] Address [address] [place] [address] Care Team Providers Care Special Equipment Technician Name Role Phone Nestor Fletcher MD Primary Care Provider [phone] Encounter Details Date Type Department Care Team (Late st Contact Info) Description 11/04/2020 ePatientFinder Message Enc [facility] Medical Group Foot & Ankle Specialists [facility] [address] [place] [address] Carlos A Ocasio, ROSY [address] [place] [address] RE: Question Social History Tobacco Use [...] Sex Assigned at Female 10/30/2019 8:35 AM PULLEY WORKER Legal Sex Female 10:55 PM CDT Gender Identity Female 10/30/2019 8:35 AM PULLEY WORKER Sexual Orientation Straight 10/30/2019 8: 35 AM PULLEY WORKER COVID-19 Exposure Response Date Recorded In the last month, have you been in contact with someone who was confirmed or suspected to have Coronavirus / COVID-19? No / Unsure 11/05/2020 8:17 AM PULLEY WORKER documented as of this encounter Functional [...] Office Visit [facility] Medical [facility] Family & Internal Medicine [facility] [address] [place] [address] Nestor Fletcher MD [address] [place] [address] 08/26/2025 9:00 AM PULLEY WORKER Office Visit [facility] Multispecialty Care - [facility] [address] [place] [address] Francisco Levi DO [address] [place] [address] documented as of this encounter Visit Diagnoses [...] Rule Out 09/11/2023 09/11/2023 09/11/2023 10:29 AM PULLEY WORKER COVID-19 Rule Out 03/18/2024 03/18/2024 03/18/2024 8:30 PM CDT COVID-19 Rule Out 05/27/2024 05/27/2024 05/27/2024 7:16 PM CDT documented as of this encounter Care Teams Special Equipment Technician Relationship Specialty [place] [address] [place] [address] PCP - General FAMILY PRACTICE 05/15/20 documented as of this encounter
--- OUTSIDE RECORDS SUMMARY | 2025-03-30 10:06 | XMS_ITS | Encounter Summary ---
Author Organization [facility] Address [address] [place] [address] Care Team Providers Care Content Assistant Name Role Phone Nestor Fletcher MD Primary Care Provider [phone] Encounter Details Date Type Department Care Team (Late st Contact Info) Description 11/05/2020 Comic Rocket Message [facility] [address] Cullen Sprague MD [address] [address] RE: Question Social History Tobacco [...] Sex Assigned at Female 10/30/2019 8:35 AM MAJOR SALES ASSOCIATE Legal Sex Female 10:55 PM CDT Gender Identity Female 10/30/2019 8:35 AM MAJOR SALES ASSOCIATE Sexual Orientation Straight 10/30/2019 8: 35 AM MAJOR SALES ASSOCIATE COVID-19 Exposure Response Date Recorded In the last month, have you been in contact with someone who was confirmed or suspected to have Coronavirus / COVID-19? No / Unsure 11/05/2020 8:17 AM MAJOR SALES ASSOCIATE documented as of this encounter Functional Status [...] Progress Notes * Vee Eddy RN - 11/05/2020 11:34 AM CST See below R SALES ASSOCIATE documented in this encounter Plan of Treatment Upcoming Encounters Date Type Department Care Team (Late st Contact Info) Description 04/03/2025 8:40 AM CDT Office Visit [facility] Medical Group Family & Internal Medicine [address] [address] [place] [address] [place] [address] 08/26/2025 9:00 AM MAJOR SALES ASSOCIATE Office Visit [facility] Medical Group Multispecialty Care - [facility] [address] [place] [address] Francisco Levi DO [address] [facility] [address] [place] [address] documented as of this encounter Visit Diagnoses [...] Rule Out 09/11/2023 09/11/2023 09/11/2023 10:29 AM MAJOR SALES ASSOCIATE COVID-19 Rule Out 03/18/2024 03/18/2024 03/18/2024 8:30 PM CDT COVID-19 Rule Out 05/27/2024 05/27/2024 05/27/2024 7:16 PM CDT documented as of this encounter Care Teams Content Assistant Relationship Specialty [place] [address] [place] [address] PCP - General FAMILY PRACTICE 05/15/20 documented as of this encounter
--- OUTSIDE RECORDS SUMMARY | 2025-03-30 10:06 | XMS_ITS | Encounter Summary ---
Author Organization [facility] Address [address] [place] [address] Care Team Providers Care Steel Plate Printer Name Role Phone Nestor Fletcher MD Primary Care Provider [phone] Encounter Details Date Type Department Care Team (Late st Contact Info) Description 01/31/2023 OneAway Message Enc [facility] Medical Group Family & Internal Medicine [address] [address] Nestor Fletcher MD [address] [place] [address] Pain meds Social History Tobacco Use [...] Sex Assigned at Female 10/30/2019 8:35 AM FEED MILL MANAGER Legal Sex Female 10:55 PM CDT Gender Identity Female 10/30/2019 8:35 AM FEED MILL MANAGER Sexual Orientation Straight 10/30/2019 8: 35 AM FEED MILL MANAGER COVID-19 Exposure Response Date Recorded In [...] of Assessment Author Status No Risk Indicated 01/31/2023 6:42 AM CDT Ela Archer RN Active * Whitman Suicide Severity Rating Scale (Screener/Recent Self-Report) Question Answer Date of Assessment Author Status 1. Wish to be (Past 1 Month) No 01/31/2023 6:42 AM CDT Ela Archer RN Activ e 2. Non-Specific Active Suicidal Thoughts (Past 1 Month) No 01/31/2023 6:42 AM CDT Ela Archer RN Activ e 6. Suicidal Behavior (Lifetime) No 01/31/2023 6:42 AM CDT Ela Archer RN Activ e documented as of this encounter Mental Status [...] Description 04/03/2025 8:40 AM CDT Office Visit [facility] Family & Internal Medicine [facility] [address] [place] [address] [place] [address] [place] [address] 08/26/2025 9:00 AM FEED MILL MANAGER Office Visit [facility] Multispecialty Care - [facility] [address] [place] [address] Francisco Levi DO [address] [facility] [place] [address] documented as of this encounter Goals Goal [...] Rule Out 09/11/2023 09/11/2023 09/11/2023 10:29 AM FEED MILL MANAGER COVID-19 Rule Out 03/18/2024 03/18/2024 03/18/2024 8:30 PM CDT COVID-19 Rule Out 05/27/2024 05/27/2024 05/27/2024 7:16 PM CDT Assessment Noted Time PHQ-9 Depression Total Score: 0 02/26/20 9:40 AM CDT documented as of this encounter Care Teams Steel Plate Printer Relationship Specialty Start Date [place] Fletcher [place] [id number] [place] [address] PCP - General FAMILY PRACTICE 05/15/20 documented as of this encounter
--- OUTSIDE RECORDS SUMMARY | 2025-03-30 10:06 | XMS_ITS | Referral Summary ---
Author Organization [facility] [address] [facility] Address [address] [place] [address] Care Team Providers Care Tutor Name Role Phone Nestor Fletcher MD Primary Care Provider [phone] Moshe Hess MD Unavailable [phone] Allergies Active Allergy Reactions Criticality Noted [...] on file Legal Sex Female 2:16 AM ORTHO NURSE Gender Identity Not on file Sexual Orientation Not on file Last Filed Vital Signs Vital Sign Reading Time Taken Comments Blood Pressure 161/77 09/30/2024 1:43 PM ORTHO NURSE Pulse 78 09/30/2024 1:43 PM ORTHO NURSE Temperature 37.4 C (99.3 F) 09/30/2024 12:43 PM ORTHO NURSE Respiratory Rate 11 09/30/2024 1:43 PM ORTHO NURSE Oxygen Saturation 96% 09/30/2024 1:43 PM ORTHO NURSE Inhaled Oxygen Concentration - - Weight 112 kg (247 lb) 09/30/2024 10:26 AM ORTHO NURSE Height 165.1 cm (5' 5) 09/30/2024 10:26 AM ORTHO NURSE Body Mass Index 41.1 09/30/2024 10:26 AM ORTHO NURSE Plan of Treatment Not on file Insurance [place] [address] [place] [address] [facility] Advance Directives For more information, please contact: [phone] * Full Code (Latest Code Status on File) Date Activated Date Inactivated Comments 09/30/2024 10:26 AM 09/30/2024 5:58 PM Care Teams Tutor Relationship Specialty Start Date End Date Nestor Fletcher MD PCP - General Family Practice 02/09/21 Moshe Hess MD [address] [place] [address] Consulting Physician Rheumatology 02/09/21
--- OUTSIDE RECORDS SUMMARY | 2025-03-30 10:06 | XMS_ITS | Encounter Summary ---
Author Organization [facility] Address [address] [place] [address] Care Team Providers Care Clinical Education Coordinator Name Role Phone Nestor Fletcher MD Primary Care Provider [phone] Encounter Details Date Type Department Care Team (Late st Contact Info) Description 11/01/2020 Eat Local Message Enc [facility] Medical Group Family & Internal Medicine [facility] [address] [place] [address] Natali Polo APNP [address] [address] RE: RE: Question Social History Tobacco Use Types [...] Sex Assigned at Female 10/30/2019 8:35 AM PAID SEARCH MANAGER Legal Sex Female 10:55 PM CDT Gender Identity Female 10/30/2019 8:35 AM PAID SEARCH MANAGER Sexual Orientation Straight 10/30/2019 8: 35 AM PAID SEARCH MANAGER COVID-19 Exposure Response Date Recorded In the last month, have you been in contact with someone who was confirmed or suspected to have Coronavirus / COVID-19? No / Unsure 11/02/2020 9:16 AM PAID SEARCH MANAGER documented as of this encounter Functional [...] Progress Notes * Barbara England NP - 11/02/2020 12:18 PM CST Outside of what I recommended, not sure what else to do right now for his headaches without seeing him. Is there any way they can schedule an appt? I would also encourage them to start a headache diary and record when he is having the headaches and if they can identify any triggers that might be causing the headaches. We can always send to pediatric neuro if mom would rather go that route as well. Thanks SEARCH MANAGER * Monique Vasquez MA - 11/02/2020 9:17 AM CST Please advise- these symptoms seem to be an ongoing issue for this patient. Please speak to me regarding this when you have time SEARCH MANAGER * Barbara England NP - 11/02/2020 7:25 AM CST Re routing. SEARCH MANAGER * Barbara England NP - 11/02/2020 7:21 AM CST Is he wearing his glasses? I have seen on previous notes that he does not wear his glasses all the time, with vision of 20/70, he needs glasses all the time. I would recommend he continue taking ibuprofen 800 mg every 8 hours and alternate with 650 mg tylenol every 8 hours. Is he going to school? He may need to come in for appt to be re evaluated. Thanks SEARCH MANAGER * Monique Vasquez MA - 11/02/2020 6:51 AM CST Please address- patient has been seen numerous times for this SEARCH MANAGER documented in this encounter Plan of Treatment Upcoming Encounters Date Type Department Care Team (Late st Contact Info) Description 04/03/2025 8:40 AM CDT Office Visit [facility] Family & Internal Medicine - [place] [address] [place] [address] Nestor Fletcher MD [address] [place] [address] 08/26/2025 9:00 AM PAID SEARCH MANAGER Office Visit [facility] Multispecialty Care - [facility] [address] [place] [address] Francisco Levi DO [address] [place] [address] documented as of this encounter Visit Diagnoses [...] Rule Out 09/11/2023 09/11/2023 09/11/2023 10:29 AM PAID SEARCH MANAGER COVID-19 Rule Out 03/18/2024 03/18/2024 03/18/2024 8:30 PM CDT COVID-19 Rule Out 05/27/2024 05/27/2024 05/27/2024 7:16 PM CDT documented as of this encounter Care Teams Clinical Education Coordinator Relationship Specialty [place] [address] [place] [address] PCP - General FAMILY PRACTICE 05/15/20 documented as of this encounter
--- OUTSIDE RECORDS SUMMARY | 2025-03-30 10:06 | XMS_ITS | Encounter Summary ---
Author Organization [facility] Address [address] [place] [address] Care Team Providers Care Structural Architect Name Role Phone Nestor Fletcher MD Primary Care Provider [phone] Encounter Details Date Type Department Care Team (Late st Contact Info) Description 03/23/2021 Airpersons Message Enc [facility] Medical Group Family & Internal Medicine [address] [address] Nestor Fletcher MD [address] [place] [address] RE: Question Social History Tobacco Use [...] Assigned at Female 10/30/2019 8:35 AM CNC FIELD SERVICE ENGINEER Legal Sex Female 10:55 PM CDT Gender Identity Female 10/30/2019 8:35 AM CNC FIELD SERVICE ENGINEER Sexual Orientation Straight 10/30/2019 8: 35 AM CNC FIELD SERVICE ENGINEER documented as of this encounter Functional Status [...] Description 04/03/2025 8:40 AM CDT Office Visit [facility] Medical Group Family & Internal Medicine - [place] [address] [place] [address] Nestor Fletcher MD [address] [place] [address] 08/26/2025 9:00 AM CNC FIELD SERVICE ENGINEER Office Visit [facility] Multispecialty Care - [address] [place] [address] Francisco Levi DO [address] [facility] [address] [place] [address] documented as of this encounter Visit Diagnoses Not on filedocumented in this encounter Additional Health Concerns Infection Onset Date Last Indicated Resolved Time COVID-19 Rule Out 12/02/2021 12/02/2021 12/02/2021 4:28 PM CDT COVID-19 Rule Out 05/20/2023 05/20/2023 05/20/2023 6:44 PM CDT COVID-19 Rule Out 09/11/2023 09/11/2023 09/11/2023 10:29 AM CNC FIELD SERVICE ENGINEER COVID-19 Rule Out 03/18/2024 03/18/2024 03/18/2024 8:30 PM CDT COVID-19 Rule Out 05/27/2024 05/27/2024 05/27/2024 7:16 PM CDT documented as of this encounter Care Teams Structural Architect Relationship Specialty [place] [address] [place] [address] PCP - General FAMILY PRACTICE 05/15/20 documented as of this encounter
--- OUTSIDE RECORDS SUMMARY | 2025-03-30 10:06 | XMS_ITS | Encounter Summary ---
Author Organization [facility] Address [address] [place] [address] Care Team Providers Care Cannoneer Name Role Phone Nestor Fletcher MD Primary Care Provider [phone] Encounter Details Date Type Department Care Team (Late st Contact Info) Description 01/06/2021 Booster Pack Message [facility] [address] Cullen Sprague MD [address] [address] RE: Question Social History Tobacco [...] Sex Assigned at Female 10/30/2019 8:[address] CRIER Legal Sex Female 10:55 PM CDT Gender Identity Female 10/30/2019 8:[address] CRIER Sexual Orientation Straight 10/30/2019 8: [address] CRIER COVID-19 Exposure Response Date Recorded In the last month, have you been in contact with someone who was confirmed or suspected to have Coronavirus / COVID-19? No / Unsure 01/08/2021 10:15 AM CDT documented as of this encounter [...] Progress Notes * Vee Eddy RN - 01/06/2021 8:41 AM CDT See below documented in this encounter Plan of Treatment Upcoming Encounters Date Type Department Care Team (Late st Contact Info) Description 04/03/2025 8:40 AM CDT Office Visit [facility] Family & Internal Medicine [address] [address] [place] [address] [place] [address] 08/26/2025 9:[address] CRIER Office Visit [facility] Multispecialty Care - [facility] [address] [place] [address] Francisco Levi DO [address] [place] [address] documented as of this encounter Visit Diagnoses Not on filedocumented in this encounter Additional Health Concerns Infection Onset Date Last Indicated Resolved Time COVID-19 Rule Out 12/02/2021 12/02/2021 12/02/2021 4:28 PM CDT COVID-19 Rule Out 05/20/2023 05/20/2023 05/20/2023 6:44 PM CDT COVID-19 Rule Out 09/11/2023 09/11/2023 09/11/2023 10:[address] CRIER COVID-19 Rule Out 03/18/2024 03/18/2024 03/18/2024 8:30 PM CDT COVID-19 Rule Out 05/27/2024 05/27/2024 05/27/2024 7:16 PM CDT documented as of this encounter Care Teams Cannoneer Relationship Specialty [place] [address] [place] [address] PCP - General FAMILY PRACTICE 05/15/20 documented as of this encounter
--- OUTSIDE RECORDS SUMMARY | 2025-03-30 10:07 | XMS_ITS | Encounter Summary ---
Author Organization [facility] Address [address] [place] [address] Care Team Providers Care Pulp Refiner Operator Name Role Phone Nestor Fletcher MD Primary Care Provider [phone] Encounter Details Date Type Department Care Team (Late st Contact Info) Description 12/30/2020 Rivet & Swayt Message Enc [facility] Multispecialty Care - [facility] [address] [place] [phone] Francisco Levi DO [address] [facility] [address] [place] [address] RE: Question Social History Tobacco Use Types [...] Sex Assigned at Female 10/30/2019 8:35 AM FIBER WORKER Legal Sex Female 10:55 PM CDT Gender Identity Female 10/30/2019 8:35 AM FIBER WORKER Sexual Orientation Straight 10/30/2019 8: 35 AM FIBER WORKER COVID-19 Exposure Response Date Recorded In the last month, have you been in contact with someone who was confirmed or suspected to have Coronavirus / COVID-19? No / Unsure 12/31/2020 9:58 AM CDT documented as of this encounter Functional Status * RETIRED Are you deaf or do you have serious difficulty hearing Answer Date of Assessment Author Status No 03/31/2020 2:12 AM CDT Acti ve * RETIRED Are you [...] [facility] [address] [place] [address] Nestor Fletcher [place] [id number] [place] [address] 08/26/2025 9:00 AM FIBER WORKER Office Visit [facility]ty Care - [facility] [address] [place] [address] [address]Franc[address] [place] [address] documented as of this encounter Visit Diagnoses Not on filedocumented in this encounter Additional Health Concerns Infection Onset Date Last Indicated Resolved Time COVID-19 Rule Out 01/05/2021 01/05/2021 01/05/2021 5:26 PM CDT COVID-19 Rule Out 12/02/2021 12/02/2021 12/02/2021 4:28 PM CDT COVID-19 Rule Out 05/20/2023 05/20/2023 05/20/2023 6:44 PM CDT COVID-19 Rule Out 09/11/2023 09/11/2023 09/11/2023 10:29 AM FIBER WORKER COVID-19 Rule Out 03/18/2024 03/18/2024 03/18/2024 8:30 PM CDT COVID-19 Rule Out 05/27/2024 05/27/2024 05/27/2024 7:16 PM CDT documented as of this encounter Care Teams Pulp Refiner Operator Relationship Specialty [place] [address] [place] [address] PCP - General FAMILY PRACTICE 05/15/20 documented as of this encounter
--- OUTSIDE RECORDS SUMMARY | 2025-03-30 10:07 | XMS_ITS | Encounter Summary ---
Author Organization [facility] Address [address] [place] [address] Care Team Providers Care Room Service Attendant Name Role Phone Nestor Fletcher MD Primary Care Provider [phone] Encounter Details Date Type Department Care Team (Late st Contact Info) Description 03/12/2023 Zura!t Message Enc [facility] Multispecialty Care - [facility] [address] [facility] [place] [phone] Eusebio Ron MD 3 [place] [address] Appointment Social History Tobacco Use Types Packs/Day [...] Sex Assigned at Female 10/30/2019 8:35 AM COMIC ILLUSTRATOR Legal Sex Female 10:55 PM CDT Gender Identity Female 10/30/2019 8:35 AM COMIC ILLUSTRATOR Sexual Orientation Straight 10/30/2019 8: 35 AM COMIC ILLUSTRATOR COVID-19 Exposure Response Date Recorded In the last 10 days, have yo u been in contact with someone who was confirmed or suspected to have Coronavirus/COVID-19? No / Unsure 02/15/2023 10:06 AM CDT documented as of this encounter [...] Status No 06/06/2022 12:00 PM CDT Georgia oLvell RN Active documented as of this encounter [...] Description 04/03/2025 8:40 AM CDT Office Visit [facility] Family [facility] Internal Medicine [facility] [address] [place] [address] [place] Fletcher [place] [address] [place] [address] 08/26/2025 9:00 AM COMIC ILLUSTRATOR Office Visit [facility] - [facility] [address] [place] [address] Dagoberto Levishaheen, [address] [place] [address] documented as of this encounter Goals Goal [...] Rule Out 09/11/2023 09/11/2023 09/11/2023 10:29 AM COMIC ILLUSTRATOR COVID-19 Rule Out 03/18/2024 03/18/2024 03/18/2024 8:30 PM CDT COVID-19 Rule Out 05/27/2024 05/27/2024 05/27/2024 7:16 PM CDT Assessment Noted Time PHQ-9 Depression Total Score: 0 02/26/20 22 9:40 AM CDT documented as of this encounter Care Teams Room Service Attendant Relationship Specialty [place] [address] [place] [address] PCP - General FAMILY PRACTICE 05/15/20 documented as of this encounter
--- OUTSIDE RECORDS SUMMARY | 2025-03-30 10:07 | XMS_ITS | Encounter Summary ---
Author Organization [facility] Address [address] [place] [address] Care Team Providers Care Sanforizing Machine Operator Name Role Phone Nestor Fletcher MD Primary Care Provider [phone] Encounter Details Date Type Department Care Team (Late st Contact Info) Description 07/18/2023 Bubble Motiont Message Enc [facility] Multispecialty Care - [facility] [address] [facility], [address] [place] [address] Eusebio Ron MD 3 [place] [address] Nausea and fatigue Social History Tobacco Use Types Packs/Day Years [...] Assigned at Female 10/30/2019 8:35 AM MANAGER COMPETITIVE INTELLIGENCE Legal Sex Female 10:55 PM CDT Gender Identity Female 10/30/2019 8:35 AM MANAGER COMPETITIVE INTELLIGENCE Sexual Orientation Straight 10/30/2019 8: 35 AM MANAGER COMPETITIVE INTELLIGENCE documented as of this encounter Functional Status [...] in this encounter Progress Notes * Pura Velazquez APRN - 07/18/2023 1:46 PM CST I am not sure why she has extreme fatigue. That is not something a myelogram would do. In regards to her nausea, is she having a positional headache and nausea or just nausea? Positional meaning doesit get better or worse when sitting up vs lying flat? GER COMPETITIVE INTELLIGENCE * Cony Lyle LPN - 07/18/2023 1:42 PM CST Called patient back. She states she denies pain/ LEONARD, was given Zofran for nausea, though it is not helping. Was told by radiology to f/u with neurosx (Dr. Ron). GER COMPETITIVE INTELLIGENCE documented in this encounter Plan of Treatment Upcoming Encounters Date Type Department Care Team (Late st Contact Info) Description 04/03/2025 8:40 AM CDT Office Visit [facility] [address] [place] [phone] [place] [address] [place], [place] [id number] 08/26/2025 9:00 AM MANAGER COMPETITIVE INTELLIGENCE Office Visit [facility] Multispecialty Care - [facility] [address] [facility] [place] [address] Francisco Levi DO [address] [facility] [address] [place] [address] documented as of this encounter Goals Goal Patient Goal Type Associated Problems Recent Progress Patient-Stated? Author Health - patient able to perform ADLs independently Lifestyle No Vega hendrickson, Kareem Camacho RN documented as of this encounter Visit Diagnoses Not on filedocumented in this encounter Additional Health Concerns Infection Onset Date Last Indicated Resolved Time COVID-19 Rule Out 09/11/2023 09/11/2023 09/11/2023 10:29 AM MANAGER COMPETITIVE INTELLIGENCE COVID-19 Rule Out 03/18/2024 03/18/2024 03/18/2024 8:30 PM CDT COVID-19 Rule Out 05/27/2024 05/27/2024 05/27/2024 7:16 PM CDT Assessment Noted Time PHQ-9 Depression Total Score: 0 02/26/20 22 9:40 AM CDT documented as of this encounter Care Teams Sanforizing Machine Operator Relationship Specialty [place] [address] [place] [address] PCP - General FAMILY PRACTICE 05/15/20 documented as of this encounter
--- OUTSIDE RECORDS SUMMARY | 2025-03-30 10:07 | XMS_ITS | Encounter Summary ---
Author Organization [facility] Address [address] [place] [address] Care Team Providers Care Assistant In Nursing Name Role Phone Nestor Fletcher MD Primary Care Provider [phone] Encounter Details Date Type Department Care Team (Latest Contact Info) Description 05/25/2023 betaworks Message Enc [facility] Multispecialty Care - [facility] [address] [facility], [address] [place] [address] [place] Provider Responding to last message Social History Tobacco Use Types Packs/Day Years [...] Sex Assigned at Female 10/30/2019 8:35 AM DECK SCALER Legal Sex Female 10:55 PM CDT Gender Identity Female 10/30/2019 8:35 AM DECK SCALER Sexual Orientation Straight 10/30/2019 8: 35 AM DECK SCALER documented as of this encounter Functional Status [...] Description 04/03/2025 8:40 AM CDT Office Visit [facility] Family & Internal Medicine - [place] [address] [place] [phone] Nestor Fletcher MD [address] [place] [address] 08/26/2025 9:00 AM DECK SCALER Office Visit [facility] Multispecialty Care - [facility] [address] [facility] [place] [address] Francisco Levi DO [address] [facility] [address] [place] [address] documented as of this encounter Goals Goal Patient Goal Type Associated Problems Recent Progress Patient-Stated? Author Health - patient able to perform ADLs independently Lifestyle No Vega hendrickson, Kareem Camacho RN documented as of this encounter Visit Diagnoses Not on filedocumented in this encounter Additional Health Concerns Infection Onset Date Last Indicated Resolved Time COVID-19 Rule Out 09/11/2023 09/11/2023 09/11/2023 10:29 AM DECK SCALER COVID-19 Rule Out 03/18/2024 03/18/2024 03/18/2024 8:30 PM CDT COVID-19 Rule Out 05/27/2024 05/27/2024 05/27/2024 7:16 PM CDT Assessment Noted Time PHQ-9 Depression Total Score: 0 02/26/20 22 9:40 AM CDT documented as of this encounter Care Teams Assistant In Nursing Relationship Specialty [place] [address] [place] [address] PCP - General FAMILY PRACTICE 05/15/20 documented as of this encounter
--- OUTSIDE RECORDS SUMMARY | 2025-03-30 10:07 | XMS_ITS | Encounter Summary ---
Author Organization [facility] Address [address] [place] [address] Care Team Providers Care Cook Mayonnaise Name Role Phone Nestor Fletcher MD Primary Care Provider [phone] Encounter Details Date Type Department Care Team (Late st Contact Info) Description 05/22/2023 Right Hemispheret Message Enc [facility] Multispecialty Care - [facility] [address] [facility], [address] [place] [phone] Eusebio Ron MD 3 [place] [address] Steroid inj Social History Tobacco Use Types Packs/Day Years [...] Sex Assigned at Female 10/30/2019 8:35 AM ASSEMBLY INSTRUCTIONS WRITER Legal Sex Female 10:55 PM CDT Gender Identity Female 10/30/2019 8:35 AM ASSEMBLY INSTRUCTIONS WRITER Sexual Orientation Straight 10/30/2019 8: 35 AM ASSEMBLY INSTRUCTIONS WRITER documented as of this encounter Functional Status [...] of Assessment Author Status No Risk Indicated 05/24/2023 11:33 AM CINTHYAT Liudmila Chau RN Active * Lee Suicide Severity Rating Scale (Screener/Recent Self-Report) Question Answer Date of Assessment Author Status 1. Wish to be (Past 1 Month) No 05/24/2023 11:33 AM Liudmila Munoz RN A ctive 2. Non-Specific Active Suicidal Thoughts (Past 1 Month) No 05/24/2023 11:33 AM Liudmila Munoz RN A ctive 6. Suicidal Behavior (Lifetime) No 05/24/2023 11:33 AM Liudmila Munoz RN A ctive documented as of this encounter Mental Status * Because of a physical, mental, or emotional condition, do you have serious difficulty concentrating, remembering, or making decisions? Answer Entry Date Author Status No 06/06/2022 12:00 PM CINTHYAT Georgia Lovell RN Active documented in this encounter Progress Notes * Pura Velazquez APRN - 05/25/2023 10:16 AM CDT I am not exactly sure what she means by her imaging doesn't look great. I reviewed the MRI. She hasno cord compression. Dr. Ron may want her to complete a myelogram after her next f/u visit. She can take the steroids prescribed by ER. She should continue to f/u as scheduled in June with Dr. Ron. * Cony Lyle LPN - 05/24/2023 4:12 PM CDT Noticed in Pt chart she was admitted at 11:45 AM. Waiting til AM to call and schedule Pt for f/u with either Pura Velazquez APRN or Dr. Ron. documented in this encounter Plan of Treatment Upcoming Encounters Date Type Department Care Team (Late st Contact Info) Description 04/03/2025 8:40 AM CDT Office Visit [facility] Family & Internal Medicine - [place] [address] [place] [address] [place] [address] [place] [address] 08/26/2025 9:00 AM ASSEMBLY INSTRUCTIONS WRITER Office Visit [facility] Multispecialty Care - [facility] [address] [place] [address] Francisco Levi DO [address] [facility] [address] [place] [address] documented as of this encounter Goals Goal Patient Goal Type Associated Problems Recent Progress Patient-Stated? Author Health - patient able to perform ADLs independently Lifestyle No Koerkenme i er, Kareem Camacho RN documented as of this encounter Visit Diagnoses Not on filedocumented in this encounter Additional Health Concerns Infection Onset Date Last Indicated Resolved Time COVID-19 Rule Out 09/11/2023 09/11/2023 09/11/2023 10:29 AM ASSEMBLY INSTRUCTIONS WRITER COVID-19 Rule Out 03/18/2024 03/18/2024 03/18/2024 8:30 PM CDT COVID-19 Rule Out 05/27/2024 05/27/2024 05/27/2024 7:16 PM CDT Assessment Noted Time PHQ-9 Depression Total Score: 0 02/26/20 9:40 AM CDT documented as of this encounter Care Teams Cook Mayonnaise Relationship Specialty [place] [address] [place] [address] PCP - General FAMILY PRACTICE 05/15/20 documented as of this encounter
--- OUTSIDE RECORDS SUMMARY | 2025-03-30 10:07 | XMS_ITS | Encounter Summary ---
Author Organization [facility] Address [address] [place] [address] Care Team Providers Care Combat Systems Operator Mine Warfare Name Role Phone Nestor Fletcher MD Primary Care Provider [phone] Encounter Details Date Type Department Care Team (Late st Contact Info) Description 03/07/2023 Mobile System 7 Message Enc [facility] Family & Internal Medicine [address] [address] Nestor Fletcher MD [address] [place] [address] Sleep Social History Tobacco Use Types Packs/Day [...] Sex Assigned at Female 10/30/2019 8:35 AM ACCOUNT SPECIALIST Legal Sex Female 10:55 PM CDT Gender Identity Female 10/30/2019 8:35 AM ACCOUNT SPECIALIST Sexual Orientation Straight 10/30/2019 8: 35 AM ACCOUNT SPECIALIST COVID-19 Exposure Response Date Recorded In [...] Progress Notes * Marina Archer RN - 03/08/2023 9:19 AM CDT Thank you Vianney!! * Renu He - 03/08/2023 8:43 AM CDT Pt has been added to waitlist. * Marina Archer RN - 03/08/2023 7:46 AM CDT Could someone please put this pt on Dr Fletcher's cancellation list? Thank you! documented in this encounter Plan of Treatment Upcoming Encounters Date Type Department Care Team (Late st Contact Info) Description 04/03/2025 8:40 AM CDT Office Visit [facility] Family & Internal Medicine - [place] [address] [place] [address] [place] [address] [place] [address] 08/26/2025 9:00 AM ACCOUNT SPECIALIST Office Visit [facility] Multispecialty Care - [facility] [address] [place] [phone] Francisco Levi DO [address] [place] [address] documented as of this encounter Goals Goal [...] Rule Out 09/11/2023 09/11/2023 09/11/2023 10:29 AM ACCOUNT SPECIALIST COVID-19 Rule Out 03/18/2024 03/18/2024 03/18/2024 8:30 PM CDT COVID-19 Rule Out 05/27/2024 05/27/2024 05/27/2024 7:16 PM CDT Assessment Noted Time PHQ-9 Depression Total Score: 0 02/26/20 9:40 AM CDT documented as of this encounter Care Teams Combat Systems Operator Mine Warfare Relationship Specialty [place] [address] [place] [address] PCP - General FAMILY PRACTICE 05/15/20 documented as of this encounter
--- OUTSIDE RECORDS SUMMARY | 2025-03-30 10:07 | XMS_ITS | Encounter Summary ---
Author Organization [facility] Address [address] [place] [address] Care Team Providers Care Truck Rental Clerk Name Role Phone Nestor Fletcher MD Primary Care Provider [phone] Encounter Details Date Type Department Care Team (Late st Contact Info) Description 2020 Seahorse Message Enc [facility] Family & Internal Medicine [address] [address] Nestor Fletcher MD [address] [place] [address] RE: Question Social History Tobacco Use [...] Sex Assigned at Female 10/30/2019 8:35 AM WAIT STAFF Legal Sex Female 10:55 PM CDT Gender Identity Female 10/30/2019 8:35 AM WAIT STAFF Sexual Orientation Straight 10/30/2019 8: 35 AM WAIT STAFF COVID-19 Exposure Response Date Recorded In the last month, have you been in contact with someone who was confirmed or suspected to have Coronavirus / COVID-19? No / Unsure 2020 10:45 AM CDT documented as of this encounter [...] AM CDT Office Visit [facility] Family & Internal Medicine [facility] [address] [place] [address] Nestor Fletcher [place] [address] [place] [address] 08/26/2025 9:00 AM WAIT STAFF Office Visit [facility] [address] [facility] [address] [place] [address] Francisco Levi DO [address] [facility] [address] [place] [address] documented as of this encounter Visit Diagnoses Not on filedocumented in this encounter Additional Health Concerns Infection Onset Date Last Indicated Resolved Time COVID-19 Rule Out 01/05/2021 01/05/2021 01/05/2021 5:26 PM CDT COVID-19 Rule Out 12/02/2021 12/02/2021 12/02/2021 4:28 PM CDT COVID-19 Rule Out 05/20/2023 05/20/2023 05/20/2023 6:44 PM CDT COVID-19 Rule Out 09/11/2023 09/11/2023 09/11/2023 10:29 AM WAIT STAFF COVID-19 Rule Out 03/18/2024 03/18/2024 03/18/2024 8:30 PM CDT COVID-19 Rule Out 05/27/2024 05/27/2024 05/27/2024 7:16 PM CDT documented as of this encounter Care Teams Truck Rental Clerk Relationship Specialty [place] [address] [place] [address] PCP - General FAMILY PRACTICE 05/15/20 documented as of this encounter
--- OUTSIDE RECORDS SUMMARY | 2025-03-30 10:07 | XMS_ITS | Encounter Summary ---
Author Organization [facility] Address [address] [place] [address] Care Team Providers Care Utility Worker Roller Shop Name Role Phone Nestor Fletcher MD Primary Care Provider [phone] Encounter Details Date Type Department Care Team (Late st Contact Info) Description 07/09/2023 MedAdherencet Message Enc [facility] Medical Group Multispecialty Care - [facility] [address] [facility], [address] [place] [phone] Eusebio Ron MD 3 [place] [address] Myelogram Social History Tobacco Use Types Packs/Day [...] Assigned at Female 10/30/2019 8:35 AM SENIOR MECHANICAL PROJECT MANAGER Legal Sex Female 10:55 PM CDT Gender Identity Female 10/30/2019 8:35 AM SENIOR MECHANICAL PROJECT MANAGER Sexual Orientation Straight 10/30/2019 8: 35 AM SENIOR MECHANICAL PROJECT MANAGER documented as of this encounter [...] of Assessment Author Status No Risk Indicated 07/12/2023 9:15 AM Marsha Singh RN Active * [place] Suicide Severity Rating Scale (Screener/Recent Self-Report) Question Answer Date of Assessment Author Status 1. Wish to be (Past 1 Month) No 07/12/2023 9:15 AM Marsha Singh RN Active 2. Non-Specific Active Suicidal Thoughts (Past 1 Month) No 07/12/2023 9:15 AM Marsha Singh RN Active 6. Suicidal Behavior (Lifetime) No 07/12/2023 9:15 AM Marsha Singh RN Active documented as of this encounter Mental Status * Because of a physical, mental, or emotional condition, do you have serious difficulty concentrating, remembering, or making decisions? Answer Entry Date Author Status No 06/06/2022 12:00 PM CINTHYAT Georgia Lovell RN Active documented in this encounter Progress Notes * Varsha Almonte MA - 07/10/2023 8:33 AM CST It looks like it was Valium 10 mg OR MECHANICAL PROJECT MANAGER * Varsha Almonte MA - 07/10/2023 7:46 AM CST Forwarding to AA OR MECHANICAL PROJECT MANAGER documented in this encounter Plan of Treatment Upcoming Encounters Date Type Department Care Team (Late st Contact Info) Description 04/03/2025 8:40 AM CDT Office Visit [facility] Family & Internal Medicine - [place] [address] [place] [address] [place] [address] [place], [place] [phone] 08/26/2025 9:00 AM SENIOR MECHANICAL PROJECT MANAGER Office Visit [facility] Multispecialty Care - [facility] [address] [place] [address] Francisco Levi DO [address] [facility] [address] [place] [address] documented as of this encounter Goals Goal Patient Goal Type Associated Problems Recent Progress Patient-Stated? Author Health - patient able to perform ADLs independently Lifestyle No Vega hendrickson, Kareem Camacho, RN documented as of this encounter Visit Diagnoses Not on filedocumented in this encounter Additional Health Concerns Infection Onset Date Last Indicated Resolved Time COVID-19 Rule Out 09/11/2023 09/11/2023 09/11/2023 10:29 AM SENIOR MECHANICAL PROJECT MANAGER COVID-19 Rule Out 03/18/2024 03/18/2024 03/18/2024 8:30 PM CDT COVID-19 Rule Out 05/27/2024 05/27/2024 05/27/2024 7:16 PM CDT Assessment Noted Time PHQ-9 Depression Total Score: 0 02/26/20 22 9:40 AM CDT documented as of this encounter Care Teams Utility Worker Roller Shop Relationship Specialty [place] [address] [place] [address] PCP - General FAMILY PRACTICE 05/15/20 documented as of this encounter
--- OUTSIDE RECORDS SUMMARY | 2025-03-30 10:07 | XMS_ITS | Encounter Summary ---
Author Organization [facility] Address [address] [place] [address] Care Team Providers Care Fretted String Instrument Repairer Name Role Phone Nestor Fletcher MD Primary Care Provider [phone] Encounter Details Date Type Department Care Team (Late st Contact Info) Description 01/30/2021 Kwaga Message Enc [facility] Medical Group Family & Internal Medicine [address] [address] Nestor Fletcher MD [address] [place] [address] RE: Question Social History Tobacco Use [...] Assigned at Female 10/30/2019 8:35 AM RN BIRTHING Legal Sex Female 10:55 PM CDT Gender Identity Female 10/30/2019 8:35 AM RN BIRTHING Sexual Orientation Straight 10/30/2019 8: 35 AM RN BIRTHING COVID-19 Exposure Response Date Recorded In the last month, have you been in contact with someone who was confirmed or suspected to have Coronavirus / COVID-19? No / Unsure 01/27/2021 10:10 AM CDT documented as of this [...] Office Visit [facility] Medical [facility] Family & Internal Medicine [facility] [address] [place] [address] [place] Fletcher [place] [id number] [place] [address] 08/26/2025 9:00 AM RN BIRTHING Office Visit [facility] Multispecialty [facility] [address] [place] [address] Francisco Levi DO [address] [facility] [place] [address] documented as of this encounter Visit Diagnoses Not on filedocumented in this encounter Additional Health Concerns Infection Onset Date Last Indicated Resolved Time COVID-19 Rule Out 12/02/2021 12/02/2021 12/02/2021 4:28 PM CDT COVID-19 Rule Out 05/20/2023 05/20/2023 05/20/2023 6:44 PM CDT COVID-19 Rule Out 09/11/2023 09/11/2023 09/11/2023 10:29 AM RN BIRTHING COVID-19 Rule Out 03/18/2024 03/18/2024 03/18/2024 8:30 PM CDT COVID-19 Rule Out 05/27/2024 05/27/2024 05/27/2024 7:16 PM CDT documented as of this encounter Care Teams Fretted String Instrument Repairer Relationship Specialty [place] [address] [place] [address] PCP - General FAMILY PRACTICE 05/15/20 documented as of this encounter
--- OUTSIDE RECORDS SUMMARY | 2025-03-30 10:07 | XMS_ITS | Encounter Summary ---
Author Organization [facility] Address [address] [place] [address] Care Team Providers Care Seating Captain Name Role Phone Nestor Fletcher MD Primary Care Provider [phone] Encounter Details Date Type Department Care Team (Late st Contact Info) Description 07/24/2023 [email or web address] Message Enc [facility] Medical Group Family & Internal Medicine [address] [address] Nestor Fletcher MD [address] [place] [address] Am416 Social History Tobacco Use Types Packs/Day Years [...] Sex Assigned at Female 10/30/2019 8:35 AM RODEO RIDER Legal Sex Female 10:55 PM CDT Gender Identity Female 10/30/2019 8:35 AM RODEO RIDER Sexual Orientation Straight 10/30/2019 8: 35 AM RODEO RIDER documented as of this encounter Functional Status [...] Description 04/03/2025 8:40 AM CDT Office Visit [facility] Family & Internal Medicine - [address] [address] Nestor Fletcher MD [address] [place] [address] 08/26/2025 9:00 AM RODEO RIDER Office Visit [facility] Multispecialty Care - [facility] [address] [facility] [place] [address] Francisco Levi DO [address] [facility] [address] [place] [address] documented as of this encounter Goals Goal Patient Goal Type Associated Problems Recent Progress Patient-Stated? Author Health - patient able to perform ADLs independently Lifestyle No Vega i madhavi, Kareem Camacho RN documented as of this encounter Visit Diagnoses Not on filedocumented in this encounter Additional Health Concerns Infection Onset Date Last Indicated Resolved Time COVID-19 Rule Out 09/11/2023 09/11/2023 09/11/2023 10:29 AM RODEO RIDER COVID-19 Rule Out 03/18/2024 03/18/2024 03/18/2024 8:30 PM CDT COVID-19 Rule Out 05/27/2024 05/27/2024 05/27/2024 7:16 PM CDT Assessment Noted Time PHQ-9 Depression Total Score: 0 02/26/20 22 9:40 AM CDT documented as of this encounter Care Teams Seating Captain Relationship Specialty [place] [address] [place] [address] PCP - General FAMILY PRACTICE 05/15/20 documented as of this encounter
--- OUTSIDE RECORDS SUMMARY | 2025-03-30 10:07 | XMS_ITS | Encounter Summary ---
Author Organization [facility] Address [address] [place] [address] Care Team Providers Care Nuclear Plant Construction Worker Name Role Phone Nestor Fletcher MD Primary Care Provider [phone] Encounter Details Date Type Department Care Team (Late st Contact Info) Description 2020 [facility] Message Enc [facility] Medical Group Multispecialty Care - [facility] [address] [place] [address] Francisco Levi DO [address] [facility] [address] [place] [address] RE: Question Social History Tobacco Use Types [...] Sex Assigned at Female 10/30/2019 8:35 AM STEAMER TENDER Legal Sex Female 10:55 PM CDT Gender Identity Female 10/30/2019 8:35 AM STEAMER TENDER Sexual Orientation Straight 10/30/2019 8: 35 AM STEAMER TENDER COVID-19 Exposure Response Date Recorded In [...] Description 04/03/2025 8:40 AM CDT Office Visit [facility] Medical Group Family & Internal Medicine [facility] [address] [place] [address] Nestor Fletcher [place] [id number] [place] [address] 08/26/2025 9:00 AM STEAMER TENDER Office Visit [facility] Medical Group Multispecialty Care - [facility] [address] [place] [address] LeviFrancisco culp [address] [place] [address] documented as of this encounter Visit Diagnoses Not on filedocumented in this encounter Additional Health Concerns Infection Onset Date Last Indicated Resolved Time COVID-19 Rule Out 01/05/2021 01/05/2021 01/05/2021 5:26 PM CDT COVID-19 Rule Out 12/02/2021 12/02/2021 12/02/2021 4:28 PM CDT COVID-19 Rule Out 05/20/2023 05/20/2023 05/20/2023 6:44 PM CDT COVID-19 Rule Out 09/11/2023 09/11/2023 09/11/2023 10:29 AM STEAMER TENDER COVID-19 Rule Out 03/18/2024 03/18/2024 03/18/2024 8:30 PM CDT COVID-19 Rule Out 05/27/2024 05/27/2024 05/27/2024 7:16 PM CDT documented as of this encounter Care Teams Nuclear Plant Construction Worker Relationship Specialty [place] [address] [place] [address] PCP - General FAMILY PRACTICE 05/15/20 documented as of this encounter
--- OUTSIDE RECORDS SUMMARY | 2025-03-30 10:07 | XMS_ITS | Encounter Summary ---
Author Organization [facility] Address [address] [place] [address] Care Team Providers Care Veterinary Poultry Inspector Name Role Phone Nestor Fletcher MD Primary Care Provider [phone] Encounter Details Date Type Department Care Team (Late st Contact Info) Description 04/13/2023 Baydin Message Enc [facility] Medical Group Family & Internal Medicine [address] [address] Nestor Fletcher MD [address] [place] [address] Weight loss Social History Tobacco Use Types Packs/Day Years [...] Sex Assigned at Female 10/30/2019 8:35 AM COMMUNITY RELATIONS ADVISOR Legal Sex Female 10:55 PM CDT Gender Identity Female 10/30/2019 8:35 AM COMMUNITY RELATIONS ADVISOR Sexual Orientation Straight 10/30/2019 8: 35 AM COMMUNITY RELATIONS ADVISOR documented as of this encounter Functional Status [...] documented in this encounter Progress Notes * Albina Christopher RN - 04/14/2023 9:44 AM CDT Printed to discuss with Dr. Fletcher, documented in this encounter Plan of Treatment Upcoming Encounters Date Type Department Care Team (Late st Contact Info) Description 04/03/2025 8:40 AM CDT Office Visit [facility] Family & Internal Medicine [facility] [address] [place] [address] Nest[place] Fletcher [place] [id number] [place] [id number] 08/26/2025 9:00 AM COMMUNITY RELATIONS ADVISOR Office Visit [facility] Multispecialty Care - [facility] [address] [place] [address] Gurmeet Francisco, [address] [place] [address] documented as of this encounter Goals Goal [...] Rule Out 09/11/2023 09/11/2023 09/11/2023 10:29 AM COMMUNITY RELATIONS ADVISOR COVID-19 Rule Out 03/18/2024 03/18/2024 03/18/2024 8:30 PM CDT COVID-19 Rule Out 05/27/2024 05/27/2024 05/27/2024 7:16 PM CDT Assessment Noted Time PHQ-9 Depression Total Score: 0 02/26/20 22 9:40 AM CDT documented as of this encounter Care Teams Veterinary Poultry Inspector Relationship Specialty [place] [address] [place] [address] PCP - General FAMILY PRACTICE 05/15/20 documented as of this encounter
--- OUTSIDE RECORDS SUMMARY | 2025-03-30 10:07 | XMS_ITS | Encounter Summary ---
Author Organization [facility] Address [address] [place] [address] Care Team Providers Care Counter Stacker Name Role Phone Nestor Fletcher MD Primary Care Provider [phone] Encounter Details Date Type Department Care Team (Late st Contact Info) Description 07/18/2023 Glider Message Enc [facility] Medical Group Family & Internal Medicine [address] [address] Nestor Fletcher MD [address] [place] [address] Nausea and fatigue Social History Tobacco Use [...] Sex Assigned at Female 10/30/2019 8:35 AM PUMPER HELPER Legal Sex Female 10:55 PM CDT Gender Identity Female 10/30/2019 8:35 AM PUMPER HELPER Sexual Orientation Straight 10/30/2019 8: 35 AM PUMPER HELPER documented as of this encounter Functional Status [...] Description 04/03/2025 8:40 AM CDT Office Visit [facility] Family & Internal Medicine - [address] [address] Nestor Fletcher MD [address] [place] [address] 08/26/2025 9:00 AM PUMPER HELPER Office Visit [facility] Multispecialty Care - [facility] [address] [facility] [place] [address] Francisco Levi DO [address] [facility] [address] [place] [address] documented as of this encounter Goals Goal Patient Goal Type Associated Problems Recent Progress Patient-Stated? Author Health - patient able to perform ADLs independently Lifestyle No Vega i madhavi, Kareem Camacho RN documented as of this encounter Visit Diagnoses Not on filedocumented in this encounter Additional Health Concerns Infection Onset Date Last Indicated Resolved Time COVID-19 Rule Out 09/11/2023 09/11/2023 09/11/2023 10:29 AM PUMPER HELPER COVID-19 Rule Out 03/18/2024 03/18/2024 03/18/2024 8:30 PM CDT COVID-19 Rule Out 05/27/2024 05/27/2024 05/27/2024 7:16 PM CDT Assessment Noted Time PHQ-9 Depression Total Score: 0 02/26/20 22 9:40 AM CDT documented as of this encounter Care Teams Counter Stacker Relationship Specialty [place] [address] [place] [address] PCP - General FAMILY PRACTICE 05/15/20 documented as of this encounter
--- OUTSIDE RECORDS SUMMARY | 2025-03-30 10:07 | XMS_ITS | Encounter Summary ---
Author Organization [facility] Address [address] [place] [address] Care Team Providers Care Greige Mender Name Role Phone Nestor Fletcher MD Primary Care Provider [phone] Encounter Details Date Type Department Care Team (Late st Contact Info) Description 04/05/2023 Techpacker Message Enc [facility] Medical Group Family & Internal Medicine [address] [address] Nestor Fletcher MD [address] [place] [address] Test results Social History Tobacco Use Types Packs/Day Years [...] Sex Assigned at Female 10/30/2019 8:35 AM CLINICAL SCIENCES PROFESSOR Legal Sex Female 10:55 PM CDT Gender Identity Female 10/30/2019 8:35 AM CLINICAL SCIENCES PROFESSOR Sexual Orientation Straight 10/30/2019 8: 35 AM CLINICAL SCIENCES PROFESSOR documented as of this encounter Functional Status [...] Description 04/03/2025 8:40 AM CDT Office Visit [facility] Family & Internal Medicine - [address] [address] Nestor Fletcher MD [address] [place] [address] 08/26/2025 9:00 AM CLINICAL SCIENCES PROFESSOR Office Visit [facility] Multispecialty Care - [facility] [address] [facility] [place] [address] Francisco Levi DO 3 [facility] [address] [place] [address] documented as of this encounter Goals Goal [...] Rule Out 09/11/2023 09/11/2023 09/11/2023 10:29 AM CLINICAL SCIENCES PROFESSOR COVID-19 Rule Out 03/18/2024 03/18/2024 03/18/2024 8:30 PM CDT COVID-19 Rule Out 05/27/2024 05/27/2024 05/27/2024 7:16 PM CDT Assessment Noted Time PHQ-9 Depression Total Score: 0 02/26/20 22 9:40 AM CDT documented as of this encounter Care Teams Greige Mender Relationship Specialty [place] [address] [place] [address] PCP - General FAMILY PRACTICE 05/15/20 documented as of this encounter
--- OUTSIDE RECORDS SUMMARY | 2025-03-30 10:07 | XMS_ITS | Encounter Summary ---
Author Organization [facility] Address [address] [place] [address] Care Team Providers Care Imaging Engineer Name Role Phone Nestor Fletcher MD Primary Care Provider [phone] Encounter Details Date Type Department Care Team (Late st Contact Info) Description 08/21/2023 Memoright Message Enc [facility] Medical Group Family & Internal Medicine [address] [place] [address] [address] Nestor Fletcher MD [address] [place] [place] [address] Meds Social History Tobacco Use Types [...] Sex Assigned at Female 10/30/2019 8:35 AM FAIRGROUND OPERATOR Legal Sex Female 10:55 PM CDT Gender Identity Female 10/30/2019 8:35 AM FAIRGROUND OPERATOR Sexual Orientation Straight 10/30/2019 8: 35 AM FAIRGROUND OPERATOR documented as of this encounter Functional [...] 12:00 PM CDT Georgia oLvell RN Active * Because of a physical, [...] Description 04/03/2025 8:40 AM CDT Office Visit [facility] Family & Internal Medicine - [address] [address] Nestor Fletcher MD [address] [place] [place] [address] 08/26/2025 9:00 AM FAIRGROUND OPERATOR Office Visit [facility] Multispecialty Care - [facility] [address] [facility] [place] [address] Francisco Levi DO [address] [facility] [address] [place] [address] documented as of this encounter Goals Goal Patient Goal Type Associated Problems Recent Progress Patient-Stated? Author Health - patient able to perform ADLs independently Lifestyle No Vega i madhavi, Kareem Camacho RN documented as of this encounter Visit Diagnoses Not on filedocumented in this encounter Additional Health Concerns Infection Onset Date Last Indicated Resolved Time COVID-19 Rule Out 09/11/2023 09/11/2023 09/11/2023 10:29 AM FAIRGROUND OPERATOR COVID-19 Rule Out 03/18/2024 03/18/2024 03/18/2024 8:30 PM CDT COVID-19 Rule Out 05/27/2024 05/27/2024 05/27/2024 7:16 PM CDT Assessment Noted Time PHQ-9 Depression Total Score: 0 02/26/20 22 9:40 AM CDT documented as of this encounter Care Teams Imaging Engineer Relationship Specialty [place] [address] [place] [address] PCP - General FAMILY PRACTICE 05/15/20 documented as of this encounter
--- OUTSIDE RECORDS SUMMARY | 2025-03-30 10:07 | XMS_ITS | Encounter Summary ---
Author Organization [facility] Address [address] [place] [address] Care Team Providers Care Full Time Paramedic Name Role Phone Nestor Fletcher MD Primary Care Provider [phone] Encounter Details Date Type Department Care Team (Late st Contact Info) Description 03/06/2023 Minimally invasive devicest Message Enc [facility] Medical Group Multispecialty Care - [facility] [address] [facility], [address] [place] [address] Eusebio Ron MD 3 [place] [address] Injections Social History Tobacco Use Types Packs/Day Years [...] Sex Assigned at Female 10/30/2019 8:35 AM SQUARING MACHINE OPERATOR Legal Sex Female 10:55 PM CDT Gender Identity Female 10/30/2019 8:35 AM SQUARING MACHINE OPERATOR Sexual Orientation Straight 10/30/2019 8: 35 AM SQUARING MACHINE OPERATOR COVID-19 Exposure Response Date Recorded [...] [facility] [address] [place] [address] Nest[place] Fletcher [place] [address] [place] [address] 08/26/2025 9:00 AM SQUARING MACHINE OPERATOR Office Visit [facility] Multispecialty Care - [facility] [address] [place] [address] Dagoberto Levishaheen, [address] [place] [address] documented as of this encounter Goals Goal [...] Rule Out 09/11/2023 09/11/2023 09/11/2023 10:29 AM SQUARING MACHINE OPERATOR COVID-19 Rule Out 03/18/2024 03/18/2024 03/18/2024 8:30 PM CDT COVID-19 Rule Out 05/27/2024 05/27/2024 05/27/2024 7:16 PM CDT Assessment Noted Time PHQ-9 Depression Total Score: 0 02/26/20 22 9:40 AM CDT documented as of this encounter Care Teams Full Time Paramedic Relationship Specialty [place] [address] [place] [address] PCP - General FAMILY PRACTICE 05/15/20 documented as of this encounter
--- OUTSIDE RECORDS SUMMARY | 2025-03-30 10:07 | XMS_ITS | Encounter Summary ---
Author Organization [facility] Address [address] [place] [address] Care Team Providers Care Disc Pad Knockout Worker Name Role Phone Nestor Fletcher MD Primary Care Provider [phone] Encounter Details Date Type Department Care Team (Late st Contact Info) Description 05/22/2023 CarWale Message Enc [facility] Medical Group Family & Internal Medicine [address] [address] Nestor Fletcher MD [address] [place] [address] Appointment Social History Tobacco Use Types [...] Assigned at Female 10/30/2019 8:35 AM MARINE PILOT Legal Sex Female 10:55 PM CDT Gender Identity Female 10/30/2019 8:35 AM MARINE PILOT Sexual Orientation Straight 10/30/2019 8: 35 AM MARINE PILOT documented as of this encounter Functional Status [...] Status No Risk Indicated 05/24/2023 11:33 AM CDT Liudmila Chau RN Active * [place] Suicide Severity Rating Scale (Screener/Recent Self-Report) Question Answer Date of Assessment Author Status 1. Wish to be (Past 1 Month) No 05/24/2023 11:33 AM CINTHYAT Liudmila Chau RN A ctive 2. Non-Specific Active Suicidal Thoughts (Past 1 Month) No 05/24/2023 11:33 AM CINTHYAT Liudmila Chau RN A ctive 6. Suicidal Behavior (Lifetime) No 05/24/2023 11:33 AM CDT Liudmila Chau RN A ctive documented as of this [...] Description 04/03/2025 8:40 AM CDT Office Visit [facility] Family & Internal Medicine [facility] [address] [place] [address] [place] [address] [place] [address] 08/26/2025 9:00 AM MARINE PILOT Office Visit [facility] Multispecialty Care - [facility] [address] [place] [address] Francisco Levi DO [address] [facility] [address] [facility] [address] [place] [address] documented as of this encounter Goals Goal Patient Goal Type Associated Problems Recent Progress Patient-Stated? Author Health - patient able to perform ADLs independently Lifestyle No Vega hendrickson, Kareem Camacho RN documented as of this encounter Visit Diagnoses Not on filedocumented in this encounter Additional Health Concerns Infection Onset Date Last Indicated Resolved Time COVID-19 Rule Out 09/11/2023 09/11/2023 09/11/2023 10:29 AM MARINE PILOT COVID-19 Rule Out 03/18/2024 03/18/2024 03/18/2024 8:30 PM CDT COVID-19 Rule Out 05/27/2024 05/27/2024 05/27/2024 7:16 PM CDT Assessment Noted Time PHQ-9 Depression Total Score: 0 02/26/20 9:40 AM CDT documented as of this encounter Care Teams Disc Pad Knockout Worker Relationship Specialty [place] [address] [place] [address] PCP - General FAMILY PRACTICE 05/15/20 documented as of this encounter
--- OUTSIDE RECORDS SUMMARY | 2025-03-30 10:07 | XMS_ITS | Encounter Summary ---
Author Organization [facility] Address [address] [place] [address] Care Team Providers Care Residential Substance Abuse Counselor Name Role Phone Nestor Fletcher MD Primary Care Provider [phone] Encounter Details Date Type Department Care Team (Late st Contact Info) Description 09/04/2023 [employer] Message Enc [facility] Medical Group Family & Internal Medicine [address] [address] Nestor Fletcher MD [address] [place] [address] Rajat Social History Tobacco Use Types Packs/Day Years [...] Sex Assigned at Female 10/30/2019 8:35 AM DENTAL OFFICE RECEPTIONIST Legal Sex Female 10:55 PM CDT Gender Identity Female 10/30/2019 8:35 AM DENTAL OFFICE RECEPTIONIST Sexual Orientation Straight 10/30/2019 8: 35 AM DENTAL OFFICE RECEPTIONIST documented as of this encounter Functional Status [...] Description 04/03/2025 8:40 AM CDT Office Visit [facility] Family & Internal Medicine - [address] [address] Nestor Fletcher MD [address] [place] [address] 08/26/2025 9:00 AM DENTAL OFFICE RECEPTIONIST Office Visit [facility] Multispecialty Care - [facility] [address] [facility] [place] [address] Francisco Levi DO 3 [facility] [address] [place] [address] documented as of this encounter Goals Goal Patient Goal Type Associated Problems Recent Progress Patient-Stated? Author Health - patient able to perform ADLs independently Lifestyle No Vega i madhavi, Kareem Camacho RN documented as of this encounter Visit Diagnoses Not on filedocumented in this encounter Additional Health Concerns Infection Onset Date Last Indicated Resolved Time COVID-19 Rule Out 09/11/2023 09/11/2023 09/11/2023 10:29 AM DENTAL OFFICE RECEPTIONIST COVID-19 Rule Out 03/18/2024 03/18/2024 03/18/2024 8:30 PM CDT COVID-19 Rule Out 05/27/2024 05/27/2024 05/27/2024 7:16 PM CDT Assessment Noted Time PHQ-9 Depression Total Score: 0 02/26/20 22 9:40 AM CDT documented as of this encounter Care Teams Residential Substance Abuse Counselor Relationship Specialty [place] [address] [place] [address] PCP - General FAMILY PRACTICE 05/15/20 documented as of this encounter
--- OUTSIDE RECORDS SUMMARY | 2025-03-30 10:07 | XMS_ITS | Encounter Summary ---
Author Organization [facility] Address [address] [place] [address] Care Team Providers Care Child Care Attendant Name Role Phone Nestor Fletcher MD Primary Care Provider [phone] Encounter Details Date Type Department Care Team (Late st Contact Info) Description 06/13/2023 [employer] Message Enc [facility] Medical Group Family & Internal Medicine [address] [address] Nestor Fletcher MD [address] [place] [address] Steroids and blood work Social History Tobacco Use Types Packs/Day Years [...] Sex Assigned at Female 10/30/2019 8:35 AM QA TEST ANALYST Legal Sex Female 10:55 PM CDT Gender Identity Female 10/30/2019 8:35 AM QA TEST ANALYST Sexual Orientation Straight 10/30/2019 8: 35 AM QA TEST ANALYST documented as of this encounter Functional Status [facility] [address] [address] Nestor Fletcher MD [address] [place] [address] 08/26/2025 9:00 AM QA TEST ANALYST Office Visit [facility] Multispecialty Care - [facility] [address] [facility] [place] [address] Francisco Levi DO 3 [facility] [address] [place] [address] documented as of this encounter Goals Goal Patient Goal Type Associated Problems Recent Progress Patient-Stated? Author Health - patient able to perform ADLs independently Lifestyle No Carrollerdomo i madhavi, Kareem Camacho RN documented as of this encounter Visit Diagnoses Not on filedocumented in this encounter Additional Health Concerns Infection Onset Date Last Indicated Resolved Time COVID-19 Rule Out 09/11/2023 09/11/2023 09/11/2023 10:29 AM QA TEST ANALYST COVID-19 Rule Out 03/18/2024 03/18/2024 03/18/2024 8:30 PM CDT COVID-19 Rule Out 05/27/2024 05/27/2024 05/27/2024 7:16 PM CDT Assessment Noted Time PHQ-9 Depression Total Score: 0 02/26/20 22 9:40 AM CDT documented as of this encounter Care Teams Child Care Attendant Relationship Specialty [place] [address] [place] [address] PCP - General FAMILY PRACTICE 05/15/20 documented as of this encounter
--- OUTSIDE RECORDS SUMMARY | 2025-03-30 10:07 | XMS_ITS | Encounter Summary ---
Author Organization [facility] Address [address] [place] [address] Care Team Providers Care Charcoal Kiln Burner Name Role Phone Nestor Fletcher MD Primary Care Provider [phone] Encounter Details Date Type Department Care Team (Late st Contact Info) Description 05/17/2023 Alignable Message Enc [facility] Medical Group Family & Internal Medicine [address] [address] Nestor Fletcher MD [address] [place] [address] Facial flushing Social History Tobacco Use Types Packs/Day Years [...] Sex Assigned at Female 10/30/2019 8:35 AM CUSTOM BOOKBINDER Legal Sex Female 10:55 PM CDT Gender Identity Female 10/30/2019 8:35 AM CUSTOM BOOKBINDER Sexual Orientation Straight 10/30/2019 8: 35 AM CUSTOM BOOKBINDER documented as of this encounter Functional Status [...] of Assessment Author Status No Risk Indicated 05/20/2023 5:36 PM CINTHYAT Joshua Good RN Active * [place] Suicide Severity Rating Scale (Screener/Recent Self-Report) Question Answer Date of Assessment Author Status 1. Wish to be (Past 1 Month) No 05/20/2023 5:36 PM CINTHYAT Sparkle Good RN Active 2. Non-Specific Active Suicidal Thoughts (Past 1 Month) No 05/20/2023 5:36 PM CINTHYAT Sparkle Good RN Active 6. Suicidal Behavior (Lifetime) No 05/20/2023 5:36 PM CINTHYAT Sparkle Good RN Active documented as of this encounter [...] Visit [facility] Family & Internal Medicine [facility] [address] [place] [address] [place] [address] [place] [address] 08/26/2025 9:00 AM CUSTOM BOOKBINDER Office Visit [facility] Multispecialty Care - [facility] [address] [facility] [address] [place] [address] Francisco Levi DO [address] [facility] [address] [place] [address] documented as of this encounter Goals Goal [...] Rule Out 09/11/2023 09/11/2023 09/11/2023 10:29 AM CUSTOM BOOKBINDER COVID-19 Rule Out 03/18/2024 03/18/2024 03/18/2024 8:30 PM CDT COVID-19 Rule Out 05/27/2024 05/27/2024 05/27/2024 7:16 PM CDT Assessment Noted Time PHQ-9 Depression Total Score: 0 02/26/20 22 9:40 AM CDT documented as of this encounter Care Teams Charcoal Kiln Burner Relationship Specialty [place] [address] [place] [address] PCP - General FAMILY PRACTICE 05/15/20 documented as of this encounter
--- OUTSIDE RECORDS SUMMARY | 2025-03-30 10:07 | XMS_ITS | Encounter Summary ---
Author Organization [facility] Address [address] [place] [address] Care Team Providers Care Stained Glass Painter Name Role Phone Nestor Fletcher MD Primary Care Provider [phone] Encounter Details Date Type Department Care Team (Late st Contact Info) Description 05/27/2023 [employer] Message Enc [facility] Medical Group Family & Internal Medicine [address] [address] Nestor Fletcher MD [address] [place] [address] Nite time urination Social History Tobacco Use Types Packs/Day Years [...] Sex Assigned at Female 10/30/2019 8:35 AM ADMINISTRATIVE JUDGE Legal Sex Female 10:55 PM CDT Gender Identity Female 10/30/2019 8:35 AM ADMINISTRATIVE JUDGE Sexual Orientation Straight 10/30/2019 8: 35 AM ADMINISTRATIVE JUDGE documented as of this encounter Functional Status [...] Medical Group Family & Internal Medicine - [address] [address] Nestor Fletcher MD [address] [place] [address] 08/26/2025 9:00 AM ADMINISTRATIVE JUDGE Office Visit [facility] Multispecialty Care - [facility] [address] [facility] [place] [address] Francisco Levi DO [address] [place] [address] [address] [place] [address] documented as of this encounter Goals Goal Patient Goal Type Associated Problems Recent Progress Patient-Stated? Author Health - patient able to perform ADLs independently Lifestyle No Carrollerdomo i madhavi, Kareem Camacho RN documented as of this encounter Visit Diagnoses Not on filedocumented in this encounter Additional Health Concerns Infection Onset Date Last Indicated Resolved Time COVID-19 Rule Out 09/11/2023 09/11/2023 09/11/2023 10:29 AM ADMINISTRATIVE JUDGE COVID-19 Rule Out 03/18/2024 03/18/2024 03/18/2024 8:30 PM CDT COVID-19 Rule Out 05/27/2024 05/27/2024 05/27/2024 7:16 PM CDT Assessment Noted Time PHQ-9 Depression Total Score: 0 02/26/20 22 9:40 AM CDT documented as of this encounter Care Teams Stained Glass Painter Relationship Specialty [place] [address] [place] [address] PCP - General FAMILY PRACTICE 05/15/20 documented as of this encounter
--- OUTSIDE RECORDS SUMMARY | 2025-03-30 10:07 | XMS_ITS | Encounter Summary ---
Author Organization [facility] Address [address] [place] [address] Care Team Providers Care Personnel Arbitrator Name Role Phone Nestor Fletcher MD Primary Care Provider [phone] Encounter Details Date Type Department Care Team (Late st Contact Info) Description 04/15/2023 [employer] Message Enc [facility] Medical Group Family & Internal Medicine [address] [address] Nestor Fletcher MD [address] [place] [address] Meds Social History Tobacco Use Types [...] Sex Assigned at Female 10/30/2019 8:35 AM FILLING OPERATOR Legal Sex Female 10:55 PM CDT Gender Identity Female 10/30/2019 8:35 AM FILLING OPERATOR Sexual Orientation Straight 10/30/2019 8: 35 AM FILLING OPERATOR documented as of this encounter Functional [...] Description 04/03/2025 8:40 AM CDT Office Visit [facility] Family & Internal Medicine - [address] [address] Nestor Fletcher MD [address] [place] [address] 08/26/2025 9:00 AM FILLING OPERATOR Office Visit [facility] Multispecialty Care - [facility] [address] [facility] [place] [address] Francisco Levi DO 3 [facility] [address] [place] [address] documented as of this encounter Goals Goal [...] Rule Out 09/11/2023 09/11/2023 09/11/2023 10:29 AM FILLING OPERATOR COVID-19 Rule Out 03/18/2024 03/18/2024 03/18/2024 8:30 PM CDT COVID-19 Rule Out 05/27/2024 05/27/2024 05/27/2024 7:16 PM CDT Assessment Noted Time PHQ-9 Depression Total Score: 0 02/26/20 22 9:40 AM CDT documented as of this encounter Care Teams Personnel Arbitrator Relationship Specialty [place] [address] [place] [address] PCP - General FAMILY PRACTICE 05/15/20 documented as of this encounter
--- OUTSIDE RECORDS SUMMARY | 2025-03-30 10:07 | XMS_ITS | Encounter Summary ---
Author Organization [facility] Address [address] [place] [address] Care Team Providers Care Hand Laster Name Role Phone Nestor Fletcher MD Primary Care Provider [phone] Encounter Details Date Type Department Care Team (Late st Contact Info) Description 04/26/2023 [employer] Message Enc [facility] Medical Group Multispecialty Care - [facility] [address] [facility] [place] [address] Eusebio Ron MD 3 [place] [address] Appt Social History Tobacco Use Types Packs/Day [...] Sex Assigned at Female 10/30/2019 8:35 AM TRANSPORTATION SECURITY OFFICER Legal Sex Female 10:55 PM CDT Gender Identity Female 10/30/2019 8:35 AM TRANSPORTATION SECURITY OFFICER Sexual Orientation Straight 10/30/2019 8: 35 AM TRANSPORTATION SECURITY OFFICER documented as of this encounter Functional Status [...] PM CINTHYAT Georgia Lovell RN Active * Do you [...] of Assessment Author Status No Risk Indicated 04/26/2023 8:42 AM Vanessa Ceja RN Active * [place] Suicide Severity Rating Scale (Screener/Recent Self-Report) Question Answer Date of Assessment Author Status 1. Wish to be (Past 1 Month) No 04/26/2023 8:42 AM Dea Ceja RN [place] 2. Non-Specific Active Suicidal Thoughts (Past 1 Month) No 04/26/2023 8:42 AM Dea Ceja RN Ac [place] 6. Suicidal Behavior (Lifetime) No 04/26/2023 8:42 AM Dea Ceja RN Ac tive documented as of this encounter Mental Status * Because of a physical, mental, or emotional condition, do you have serious difficulty concentrating, remembering, or making decisions? Answer Entry Date Author Status No 06/06/2022 12:00 PM CDT Lovell, Georgia K, RN Active documented in this encounter Plan of Treatment Upcoming Encounters Date Type Department Care Team (Late st Contact Info) Description 04/03/2025 8:40 AM CDT Office Visit [facility] Family & Internal Medicine [facility] [address] [place] [address] [place] [address] [place], [place] [id number] 08/26/2025 9:00 AM TRANSPORTATION SECURITY OFFICER Office Visit [facility] Multispecialty Care - [facility] [address] [facility] [address] [place] [address] Francisco Levi DO [address] [facility] [address] [place] [address] documented as of this encounter Goals Goal Patient Goal Type Associated Problems Recent Progress Patient-Stated? Author Health - patient able to perform ADLs independently Lifestyle No Carrollerdomo i er, Kareem Camacho RN documented as of this encounter Visit Diagnoses Not on filedocumented in this encounter Additional Health Concerns Infection Onset Date Last Indicated Resolved Time COVID-19 Rule Out 05/20/2023 05/20/2023 05/20/2023 6:44 PM CDT COVID-19 Rule Out 09/11/2023 09/11/2023 09/11/2023 10:29 AM TRANSPORTATION SECURITY OFFICER COVID-19 Rule Out 03/18/2024 03/18/2024 03/18/2024 8:30 PM CDT COVID-19 Rule Out 05/27/2024 05/27/2024 05/27/2024 7:16 PM CDT Assessment Noted Time PHQ-9 Depression Total Score: 0 02/26/20 9:40 AM CDT documented as of this encounter Care Teams Hand Laster Relationship Specialty [place] [address] [place], [place] [address] PCP - General FAMILY PRACTICE 05/15/20 documented as of this encounter
--- OUTSIDE RECORDS SUMMARY | 2025-03-30 10:07 | XMS_ITS | Encounter Summary ---
Author Organization [facility] Address [address] [place] [address] Care Team Providers Care Nurse Discharge Name Role Phone Nestor Fletcher MD Primary Care Provider [phone] Encounter Details Date Type Department Care Team (Late st Contact Info) Description 02/16/2023 [employer] Message Enc [facility] Medical Group Foot [facility] Ankle Specialists [facility] [address] [place] [address] Carlos A Ocasio, DPBrinda [address] [place] [address] A few questions Social History Tobacco Use Types Packs/Day Years [...] Sex Assigned at Female 10/30/2019 8:35 AM MULTIFOCAL LENS ASSEMBLER Legal Sex Female 10:55 PM CDT Gender Identity Female 10/30/2019 8:35 AM MULTIFOCAL LENS ASSEMBLER Sexual Orientation Straight 10/30/2019 8: 35 AM MULTIFOCAL LENS ASSEMBLER COVID-19 Exposure Response Date Recorded In [...] Description 04/03/2025 8:40 AM CDT Office Visit [facility] Family & Internal Medicine [facility] [address] [place] [address] [place] Fletcher [place] [address] [place] [address] 08/26/2025 9:00 AM MULTIFOCAL LENS ASSEMBLER Office Visit [facility] Multispecialty [address] [place] [address] Francisco Levi, [address] [facility] [address] [place] [address] documented as of this encounter Goals Goal [...] Rule Out 09/11/2023 09/11/2023 09/11/2023 10:29 AM MULTIFOCAL LENS ASSEMBLER COVID-19 Rule Out 03/18/2024 03/18/2024 03/18/2024 8:30 PM CDT COVID-19 Rule Out 05/27/2024 05/27/2024 05/27/2024 7:16 PM CDT Assessment Noted Time PHQ-9 Depression Total Score: 0 02/26/20 22 9:40 AM CDT documented as of this encounter Care Teams Nurse Discharge Relationship Specialty [place] [address] [place] [address] PCP - General FAMILY PRACTICE 05/15/20 documented as of this encounter
--- OUTSIDE RECORDS SUMMARY | 2025-03-30 10:07 | XMS_ITS | Encounter Summary ---
Author Organization [facility] Address [address] [place] [address] Care Team Providers Care Diesel Motor Mechanic Name Role Phone Nestor Fletcher MD Primary Care Provider [phone] Encounter Details Date Type Department Care Team (Late st Contact Info) Description 04/11/2023 [employer] Message Enc [facility] Medical Group Family & Internal Medicine [address] [address] Nestor Fletcher MD [address] [place] [address] visit Social History Tobacco Use Types Packs/Day Years [...] Sex Assigned at Female 10/30/2019 8:35 AM CSO Legal Sex Female 10:55 PM CDT Gender Identity Female 10/30/2019 8:35 AM CSO Sexual Orientation Straight 10/30/2019 8: 35 AM CSO documented as of this encounter Functional Status [...] 04/03/2025 8:40 AM CDT Office Visit [facility] Family & Internal Medicine - [address] [address] Nestor Fletcher MD [address] [place] [address] 08/26/2025 9:00 AM CSO Office Visit [facility] Multispecialty Care - [facility] [address] [facility] [place] [address] Francisco Levi DO 3 [facility] [address] [place] [address] documented as of this encounter Goals Goal [...] Rule Out 09/11/2023 09/11/2023 09/11/2023 10:29 AM CSO COVID-19 Rule Out 03/18/2024 03/18/2024 03/18/2024 8:30 PM CDT COVID-19 Rule Out 05/27/2024 05/27/2024 05/27/2024 7:16 PM CDT Assessment Noted Time PHQ-9 Depression Total Score: 0 02/26/20 22 9:40 AM CDT documented as of this encounter Care Teams Diesel Motor Mechanic Relationship Specialty [place] [address] [place] [address] PCP - General FAMILY PRACTICE 05/15/20 documented as of this encounter
--- OUTSIDE RECORDS SUMMARY | 2025-03-30 10:07 | XMS_ITS | Encounter Summary ---
Author Organization [facility] Address [facility] [place] [address] Care Team Providers Care Lens Generator Name Role Phone Nestor Fletcher MD Primary Care Provider [phone] Encounter Details Date Type Department Care Team (Late st Contact Info) Description 03/01/2023 MyChart Message Enc [facility] Medical Group - [facility] [address] [place], [place] [address] [facility], [facility] Provider Air Quality Message Social History Tobacco Use Types Packs/Day Years [...] Sex Assigned at Female 10/30/2019 8:35 AM PROGRAMMING EQUIPMENT OPERATOR Legal Sex Female 10:55 PM CDT Gender Identity Female 10/30/2019 8:35 AM PROGRAMMING EQUIPMENT OPERATOR Sexual Orientation Straight 10/30/2019 8: 35 AM PROGRAMMING EQUIPMENT OPERATOR COVID-19 Exposure Response Date Recorded In [...] [facility] [place] [address] [place] [address] Nestor Fletcher MD [address] [place] [address] 08/26/2025 9:00 AM PROGRAMMING EQUIPMENT OPERATOR Office Visit [facility] Multispecialty Care - [address] [place] [address] Francisco Levi DO [address] [place] [address] [address] [place] [address] documented as of this encounter Goals Goal [...] Rule Out 09/11/2023 09/11/2023 09/11/2023 10:29 AM PROGRAMMING EQUIPMENT OPERATOR COVID-19 Rule Out 03/18/2024 03/18/2024 03/18/2024 8:30 PM CDT COVID-19 Rule Out 05/27/2024 05/27/2024 05/27/2024 7:16 PM CDT Assessment Noted Time PHQ-9 Depression Total Score: 0 02/26/20 22 9:40 AM CDT documented as of this encounter Care Teams Lens Generator Relationship Specialty [place] [address] [place] [address] PCP - General FAMILY PRACTICE 05/15/20 documented as of this encounter
--- OUTSIDE RECORDS SUMMARY | 2025-03-30 10:07 | XMS_ITS | Encounter Summary ---
Author Organization [facility] Address [address] [place] [address] Care Team Providers Care Abatement Worker Name Role Phone Nestor Fletcher MD Primary Care Provider [phone] Encounter Details Date Type Department Care Team (Late st Contact Info) Description 06/07/2023 [employer] Message [facility] [address] Cullen Sprague MD [address] [address] Ekg Social History Tobacco Use Types Packs/Day Years [...] Sex Assigned at Female 10/30/2019 8:35 AM BREWERY REPRESENTATIVE Legal Sex Female 10:55 PM CDT Gender Identity Female 10/30/2019 8:35 AM BREWERY REPRESENTATIVE Sexual Orientation Straight 10/30/2019 8: 35 AM BREWERY REPRESENTATIVE documented as of this encounter Functional Status [...] documented in this encounter Progress Notes * Cullen Sprague MD - 06/07/2023 2:07 PM CDT All of the EKG abnormalities are quite nonspecific findings; no cardiac concerns at this time. No need for appointment unless new symptoms. * Vee Eddy RN - 06/07/2023 10:46 AM CDT Please advise. documented in this encounter Plan of Treatment Upcoming Encounters Date Type Department Care Team (Late st Contact Info) Description 04/03/2025 8:40 AM CDT Office Visit [facility] Medical Group Family & Internal Medicine [address] [place] [address] [place] [address] [place] [address] 08/26/2025 9:00 AM BREWERY REPRESENTATIVE Office Visit [facility] Medical Group Multispecialty Care - [facility] [address] [facility] [address] [place] [address] Dagoberto Levimagdamadhavi, [address] [facility] [address] [place] [address] documented as of this encounter Goals Goal Patient Goal Type Associated Problems Recent Progress Patient-Stated? Author Health - patient able to perform ADLs independently Lifestyle No Vega i er, Kareem Camacho RN documented as of this encounter Visit Diagnoses Not on filedocumented in this encounter Additional Health Concerns Infection Onset Date Last Indicated Resolved Time COVID-19 Rule Out 09/11/2023 09/11/2023 09/11/2023 10:29 AM BREWERY REPRESENTATIVE COVID-19 Rule Out 03/18/2024 03/18/2024 03/18/2024 8:30 PM CDT COVID-19 Rule Out 05/27/2024 05/27/2024 05/27/2024 7:16 PM CDT Assessment Noted Time PHQ-9 Depression Total Score: 0 02/26/20 9:40 AM CDT documented as of this encounter Care Teams Abatement Worker Relationship Specialty [place] [address] [place] [address] PCP - General FAMILY PRACTICE 05/15/20 documented as of this encounter
--- OUTSIDE RECORDS SUMMARY | 2025-03-30 10:07 | XMS_ITS | Encounter Summary ---
Author Organization [facility] Address [address] [place] [address] Care Team Providers Care Can Handler Name Role Phone Nestor Fletcher MD Primary Care Provider [phone] Encounter Details Date Type Department Care Team (Late st Contact Info) Description 01/05/2021 [employer] Message Enc [facility] Medical Group Family & Internal Medicine [address] [address] Nestor Fletcher MD [address] [place] [address] RE: Question Social History Tobacco Use [...] Sex Assigned at Female 10/30/2019 8:35 AM POWDERMAN Legal Sex Female 10:55 PM CDT Gender Identity Female 10/30/2019 8:35 AM POWDERMAN Sexual Orientation Straight 10/30/2019 8: 35 AM POWDERMAN COVID-19 Exposure Response Date Recorded In the [...] 8:40 AM CDT Office Visit [facility] Medical [facility] Family [facility] Internal Medicine [facility] [address] [place] [address] [place] [id number] [place] [address] 08/26/2025 9:00 AM POWDERMAN Office Visit [facility]ty [facility] [address] [place] [address] Francisco Levi DO [address] [facility] [facility] [address] [place] [address] documented as of this encounter Visit Diagnoses Not on filedocumented in this encounter Additional Health Concerns Infection Onset Date Last Indicated Resolved Time COVID-19 Rule Out 01/05/2021 01/05/2021 01/05/2021 5:26 PM CDT COVID-19 Rule Out 12/02/2021 12/02/2021 12/02/2021 4:28 PM CDT COVID-19 Rule Out 05/20/2023 05/20/2023 05/20/2023 6:44 PM CDT COVID-19 Rule Out 09/11/2023 09/11/2023 09/11/2023 10:29 AM POWDERMAN COVID-19 Rule Out 03/18/2024 03/18/2024 03/18/2024 8:30 PM CDT COVID-19 Rule Out 05/27/2024 05/27/2024 05/27/2024 7:16 PM CDT documented as of this encounter Care Teams Can Handler Relationship Specialty [place] [address] [place] [address] PCP - General FAMILY PRACTICE 05/15/20 documented as of this encounter
--- OUTSIDE RECORDS SUMMARY | 2025-03-30 10:07 | XMS_ITS | Encounter Summary ---
Author Organization [facility] Address [address] [place] [address] Care Team Providers Care Commissioner Of Officials Name Role Phone Nestor Fletcher MD Primary Care Provider [phone] Encounter Details Date Type Department Care Team (Late st Contact Info) Description 07/04/2023 [employer] Message Enc [facility] Multispecialty Care - [facility] [address] [facility] [place] [phone] Eusebio Ron MD 3 [place] [address] Fall Social History Tobacco Use Types Packs/Day Years [...] Sex Assigned at Female 10/30/2019 8:35 AM MACHINE DYER Legal Sex Female 10:55 PM CDT Gender Identity Female 10/30/2019 8:35 AM MACHINE DYER Sexual Orientation Straight 10/30/2019 8: 35 AM MACHINE DYER documented as of this encounter Functional Status [...] Progress Notes * Varsha Almonte MA - 07/04/2023 2:16 PM CDT Forwarding to [facility] documented in this encounter Plan of Treatment Upcoming Encounters Date Type Department Care Team (Late st Contact Info) Description 04/03/2025 8:40 AM CDT Office Visit [facility] Family & Internal Medicine [facility] [address] [place] [address] Nestor Fletcher MD [address] [place] [address] 08/26/2025 9:00 AM MACHINE DYER Office Visit [facility] Mult[facility]pecialty Care - [facility] [address] [place] [address] Francisco Levi DO [address] [place] [address] documented as of this encounter Goals Goal Patient Goal Type Associated Problems Recent Progress Patient-Stated? Author Health - patient able to perform ADLs independently Lifestyle No Vega i er, Kareem Camacho RN documented as of this encounter Visit Diagnoses Not on filedocumented in this encounter Additional Health Concerns Infection Onset Date Last Indicated Resolved Time COVID-19 Rule Out 09/11/2023 09/11/2023 09/11/2023 10:29 AM MACHINE DYER COVID-19 Rule Out 03/18/2024 03/18/2024 03/18/2024 8:30 PM CDT COVID-19 Rule Out 05/27/2024 05/27/2024 05/27/2024 7:16 PM CDT Assessment Noted Time PHQ-9 Depression Total Score: 0 02/26/20 9:40 AM CDT documented as of this encounter Care Teams Commissioner Of Officials Relationship Specialty [place] [address] [place] [address] PCP - General FAMILY PRACTICE 05/15/20 documented as of this encounter
--- OUTSIDE RECORDS SUMMARY | 2025-03-30 10:07 | XMS_ITS | Encounter Summary ---
Author Organization [facility] Address [address] [place] [address] Care Team Providers Care Geothermal Sheet Metal Worker Name Role Phone Nestor Fletcher MD Primary Care Provider [phone] Encounter Details Date Type Department Care Team (Late st Contact Info) Description 03/30/2023 [employer] Message Enc [facility] Medical Group Family & Internal Medicine [address] [address] Nestor Fletcher MD [address] [place] [address] April appt Social History Tobacco Use Types Packs/Day [...] Sex Assigned at Female 10/30/2019 8:35 AM SOCIOLOGY FACULTY MEMBER Legal Sex Female 10:55 PM CDT Gender Identity Female 10/30/2019 8:35 AM SOCIOLOGY FACULTY MEMBER Sexual Orientation Straight 10/30/2019 8: 35 AM SOCIOLOGY FACULTY MEMBER documented as of this encounter Functional Status [...] of Assessment Author Status No Risk Indicated 04/01/2023 1:52 PM CDT Charles Simpson RN Active * [place] Suicide Severity Rating Scale (Screener/Recent Self-Report) Question Answer Date of Assessment Author Status 1. Wish to be (Past 1 Month) No 04/01/2023 1:52 PM CDT Cullen Simpson RN Acti ve 2. Non-Specific Active Suicidal Thoughts (Past 1 Month) No 04/01/2023 1:52 PM CDT Cullen Simpson RN Acti ve 6. Suicidal Behavior (Lifetime) No 04/01/2023 1:52 PM CINTHYAT Cullen Simpson RN Acti ve documented as of this [...] [facility] Family [facility] Internal Medicine [facility] [address] [place] [address] [place] [address] [place] [address] 08/26/2025 9:00 AM SOCIOLOGY FACULTY MEMBER Office Visit [facility] Multispecialty Care - [facility] [address] [place] [address] Francisco Levi, [address] [facility] [place] [address] documented as of this encounter Goals Goal [...] Rule Out 09/11/2023 09/11/2023 09/11/2023 10:29 AM SOCIOLOGY FACULTY MEMBER COVID-19 Rule Out 03/18/2024 03/18/2024 03/18/2024 8:30 PM CDT COVID-19 Rule Out 05/27/2024 05/27/2024 05/27/2024 7:16 PM CDT Assessment Noted Time PHQ-9 Depression Total Score: 0 02/26/20 22 9:40 AM CDT documented as of this encounter Care Teams Geothermal Sheet Metal Worker Relationship Specialty [place] [address] [place] [address] PCP - General FAMILY PRACTICE 05/15/20 documented as of this encounter
--- OUTSIDE RECORDS SUMMARY | 2025-03-30 10:07 | XMS_ITS | Encounter Summary ---
Author Organization [facility] Address [address] [place] [address] Care Team Providers Care Information Technology Specialist Name Role Phone Nestor Fletcher MD Primary Care Provider [phone] Encounter Details Date Type Department Care Team (Late st Contact Info) Description 04/21/2023 [employer] Message Enc [facility] Medical Group Family & Internal Medicine [address] [address] Nestor Fletcher MD [address] [place] [address] Hips Social History Tobacco Use Types Packs/Day Years [...] Sex Assigned at Female 10/30/2019 8:35 AM DIVISION HEAD Legal Sex Female 10:55 PM CDT Gender Identity Female 10/30/2019 8:35 AM DIVISION HEAD Sexual Orientation Straight 10/30/2019 8: 35 AM DIVISION HEAD documented as of this encounter Functional Status [...] Description 04/03/2025 8:40 AM CDT Office Visit [facility] Family & Internal Medicine - [address] [address] Nestor Fletcher MD [address] [place] [address] 08/26/2025 9:00 AM DIVISION HEAD Office Visit [facility] Multispecialty Care - [facility] [address] [facility] [place] [address] Francisco Levi DO [address] [facility] [address] [place] [address] documented as of this encounter Goals Goal [...] Rule Out 09/11/2023 09/11/2023 09/11/2023 10:29 AM DIVISION HEAD COVID-19 Rule Out 03/18/2024 03/18/2024 03/18/2024 8:30 PM CDT COVID-19 Rule Out 05/27/2024 05/27/2024 05/27/2024 7:16 PM CDT Assessment Noted Time PHQ-9 Depression Total Score: 0 02/26/20 22 9:40 AM CDT documented as of this encounter Care Teams Information Technology Specialist Relationship Specialty [place] [address] [place] [address] PCP - General FAMILY PRACTICE 05/15/20 documented as of this encounter
--- OUTSIDE RECORDS SUMMARY | 2025-03-30 10:07 | XMS_ITS | Encounter Summary ---
Author Organization [facility] Address [address] [place] [address] Care Team Providers Care Licensed Psychologist Director Name Role Phone Nestor Fletcher MD Primary Care Provider [phone] Encounter Details Date Type Department Care Team (Late st Contact Info) Description 01/28/2021 [employer] Message Enc [facility] Medical Group Family & Internal Medicine [address] [address] Nestor Fletcher MD [address] [place] [address] RE: Follow Up/Update Social History Tobacco [...] Sex Assigned at Female 10/30/2019 8:35 AM ANODE CREW SUPERVISOR Legal Sex Female 10:55 PM CDT Gender Identity Female 10/30/2019 8:35 AM ANODE CREW SUPERVISOR Sexual Orientation Straight 10/30/2019 8: 35 AM ANODE CREW SUPERVISOR COVID-19 Exposure Response Date Recorded In [...] HOSPITAL Medical Group Family & Internal Medicine [facility] [address] [place] [address] Nestor Fletcher MD [address] [place] [address] 08/26/2025 9:00 AM ANODE CREW SUPERVISOR Office Visit [facility] Multispecialty Care - [facility] [address] [place] [address] Francisco Levi DO [address] [facility] [address] [place] [address] documented as of this encounter Visit Diagnoses Not on filedocumented in this encounter Additional Health Concerns Infection Onset Date Last Indicated Resolved Time COVID-19 Rule Out 12/02/2021 12/02/2021 12/02/2021 4:28 PM CDT COVID-19 Rule Out 05/20/2023 05/20/2023 05/20/2023 6:44 PM CDT COVID-19 Rule Out 09/11/2023 09/11/2023 09/11/2023 10:29 AM ANODE CREW SUPERVISOR COVID-19 Rule Out 03/18/2024 03/18/2024 03/18/2024 8:30 PM CDT COVID-19 Rule Out 05/27/2024 05/27/2024 05/27/2024 7:16 PM CDT documented as of this encounter Care Teams Licensed Psychologist Director Relationship Specialty [place] [address] [place] [address] PCP - General FAMILY PRACTICE 05/15/20 documented as of this encounter
--- OUTSIDE RECORDS SUMMARY | 2025-03-30 10:07 | XMS_ITS | Encounter Summary ---
Author Organization [facility] Address [address] [place] [address] Care Team Providers Care Pocketbook Maker Name Role Phone Nestor Fletcher MD Primary Care Provider [phone] Encounter Details Date Type Department Care Team (Late st Contact Info) Description 04/19/2023 [place] [employer] Message Enc [facility] Medical Group Multispecialty Care - [facility] [address] [facility] [address] [place] [address] Eusebio Ron MD 3 [place] [address] Imaging Social History Tobacco Use Types Packs/Day [...] Assigned at Female 10/30/2019 8:35 AM SENIOR BACK END JAVA DEVELOPER Legal Sex Female 10:55 PM CDT Gender Identity Female 10/30/2019 8:35 AM SENIOR BACK END JAVA DEVELOPER Sexual Orientation Straight 10/30/2019 8: 35 AM SENIOR BACK END JAVA DEVELOPER documented as of this encounter Functional [...] [facility] Family & Internal Medicine [facility] [address] [place] [address] Nestor Fletcher MD [address] [place] [id number] 08/26/2025 9:00 AM SENIOR BACK END JAVA DEVELOPER Office Visit [facility] Multispecialty Care - [address] [place] [address], [address] [place] [phone] Francisco Levi DO [address] [facility] [address] [place] [address] documented as of this encounter Goals Goal [...] Out 09/11/2023 09/11/2023 09/11/2023 10:29 AM SENIOR BACK END JAVA DEVELOPER COVID-19 Rule Out 03/18/2024 03/18/2024 03/18/2024 8:30 PM CDT COVID-19 Rule Out 05/27/2024 05/27/2024 05/27/2024 7:16 PM CDT Assessment Noted Time PHQ-9 Depression Total Score: 0 02/26/20 22 9:40 AM CDT documented as of this encounter Care Teams Pocketbook Maker Relationship Specialty [place] [address] [place] [address] PCP - General FAMILY PRACTICE 05/15/20 documented as of this encounter
--- OUTSIDE RECORDS SUMMARY | 2025-03-30 10:08 | XMS_ITS | Encounter Summary ---
Author Organization [facility] Address [address] [place] [address] Care Team Providers Care Senior Java Web Developer Name Role Phone Nestor Fletcher MD Primary Care Provider [phone] Encounter Details Date Type Department Care Team (Late st Contact Info) Description 11/29/2021 [employer] Message Enc [facility] Medical Group Foot & Ankle Specialists [facility] [address] [place] [address] Carlos A Ocasio, DPBrinda [address] [place] [address] Steroid shot Social History Tobacco Use Types Packs/Day Years [...] Sex Assigned at Female 10/30/2019 8:35 AM NURSES' AIDE Legal Sex Female 10:55 PM CDT Gender Identity Female 10/30/2019 8:35 AM NURSES' AIDE Sexual Orientation Straight 10/30/2019 8: 35 AM NURSES' AIDE COVID-19 Exposure Response Date Recorded In the last 10 days, have marielos valladares been in contact with someone who was confirmed or suspected to have Coronavirus/COVID-19? No / Unsure 12/02/2021 3:36 PM CDT documented as of this encounter [...] of Assessment Author Status No Risk Indicated 12/02/2021 3:38 PM CDT Brinda Chau RN Active * [place] Suicide Severity Rating Scale (Screener/Recent Self-Report) Question Answer Date of Assessment Author Status 1. Wish to be (Past 1 Month) No 12/02/2021 3:38 PM CDT Liudmila Chau RN Ac tive 2. Non-Specific Active Suicidal Thoughts (Past 1 Month) No 12/02/2021 3:38 PM CDT Liudmila Chau RN Ac tive 6. Suicidal Behavior (Lifetime) No 12/02/2021 3:38 PM CDT Liudmila Chau RN Ac [place] documented as of this encounter Mental Status [...] [facility] Family & Internal Medicine [facility] [address] [place] [address] [place] [address] [place] [address] 08/26/2025 9:00 AM NURSES' AIDE Office Visit [facility] Multispecialty Care - [facility] [address] [place] [address] Francisco Levi DO [address] [facility] [address] [place] [address] documented as of this encounter Visit Diagnoses Not on filedocumented in this encounter Additional Health Concerns Infection Onset Date Last Indicated Resolved Time COVID-19 Rule Out 12/02/2021 12/02/2021 12/02/2021 4:28 PM CDT COVID-19 Rule Out 05/20/2023 05/20/2023 05/20/2023 6:44 PM CDT COVID-19 Rule Out 09/11/2023 09/11/2023 09/11/2023 10:29 AM NURSES' AIDE COVID-19 Rule Out 03/18/2024 03/18/2024 03/18/2024 8:30 PM CDT COVID-19 Rule Out 05/27/2024 05/27/2024 05/27/2024 7:16 PM CDT Assessment Noted Time PHQ-9 Depression Total Score: 0 08/24/20 21 2:19 PM NURSES' AIDE documented as of this encounter Care Teams Senior Java Web Developer Relationship Specialty [place] [address] [place] [address] PCP - General FAMILY PRACTICE 05/15/20 documented as of this encounter
--- OUTSIDE RECORDS SUMMARY | 2025-03-30 10:08 | XMS_ITS | Encounter Summary ---
Author Organization [facility] Address [address] [place] [address] Care Team Providers Care Freight Loading Supervisor Name Role Phone Nestor Fletcher MD Primary Care Provider [phone] Encounter Details Date Type Department Care Team (Late st Contact Info) Description 06/19/2024 [employer] Message Enc [facility] Medical Group Family & Internal Medicine [facility] [address] [place] [address] [place] Fletcher [place] [address] [place] [address] Pain. Again Social History Tobacco Use Types Packs/Day Years [...] Date Recorded Patient Health Questionnaire-2 Score 1 05/30/2024 Comments No Sex and Gender Information Value Date Recorded Sex Assigned at Female 10/30/2019 8:35 AM AUTOMATED TELLER MANAGER Legal Sex Female 10:55 PM CDT Gender Identity Female 10/30/2019 8:35 AM AUTOMATED TELLER MANAGER Sexual Orientation Straight 10/30/2019 8: 35 AM AUTOMATED TELLER MANAGER documented as of this encounter Functional [...] PM CINTHYAT Georgia Lovell RN Active * Calculated C-SSRS Risk Score (Lifetime/Recent) Answer Date of Assessment Author Status No Risk Indicated 06/22/2024 12:58 PM CINTHYAT Juan C Levi RN Active * [place] Suicide Severity Rating Scale (Screener/Recent Self-Report) Question Answer Date of Assessment Author Status 1. Wish to be (Past 1 Month) No 06/22/2024 12:58 PM CINTHYAT Kelly Levi RN Acti ve 2. Non-Specific Active Suicidal Thoughts (Past 1 Month) No 06/22/2024 12:58 PM CDT Kelly Levi RN Acti ve 6. Suicidal Behavior (Lifetime) No 06/22/2024 12:58 PM CINTHYAT Kelly Levi RN Acti ve documented as of this [...] Description 04/03/2025 8:40 AM CDT Office Visit [facility] Family & Internal Medicine - [place] [address] [place] [address] [place] [address] [place] [address] 08/26/2025 9:00 AM AUTOMATED TELLER MANAGER Office Visit [facility] Multispecialty Care - [facility] [address] [place] [address] Francisco Levi [address] [facility] [address] [place] [address] documented as of this encounter Goals Goal [...] documented as of this encounter Care Teams Freight Loading Supervisor Relationship Specialty [place] [address] [place] [address] PCP - General FAMILY PRACTICE 05/15/20 documented as of this encounter
--- OUTSIDE RECORDS SUMMARY | 2025-03-30 10:08 | XMS_ITS | Encounter Summary ---
Author Organization [facility] Address Critical access hospital[address] [place] [address] Care Team Providers Care Shank Maker Name Role Phone Tutu Hill MD Primary Care Provider + [place] Rock[place] NP Primary Care Provider + None, Provider Primary Care Provider Wilbert Nestor Henderson MD Primary Care Provider [phone] Encounter Details Date Type Department Care Team (Late st Contact Info) Description 03/10/2004 Abstract [facility] Clinics Conversion , Generic ConversionMD Social History Tobacco Use Types Packs/Day Years Used Date Smoking Tobacco: Never Assessed Comments Unknown Sex and Gender Information Value Date Recorded Sex Assigned at Female 10/30/2019 8:35 AM SENIOR MATERIALS PLANNER Legal Sex Female 10:55 PM CDT Gender Identity Female 10/30/2019 8:35 AM SENIOR MATERIALS PLANNER Sexual Orientation Straight 10/30/2019 8: 35 AM SENIOR MATERIALS PLANNER documented as of this encounter Plan of Treatment Upcoming Encounters Date Type Department Care Team (Late st Contact Info) Description 04/03/2025 8:40 AM CDT Office Visit [facility] Medical Group Family & Internal Medicine [address] [address] Nestor Fletcher MD [address] [place] [address] 08/26/2025 9:00 AM SENIOR MATERIALS PLANNER Office Visit [facility] Multispecialty Care - [place] [address] [facility] [place] [address] Francisco Levi DO [address] [place] [address] documented as of this encounter Visit Diagnoses [...] Out 07/06/2020 07/06/2020 07/08/2020 11:00 PM SENIOR MATERIALS PLANNER COVID-19 Rule Out 07/09/2020 07/09/2020 07/12/2020 10:16 AM SENIOR MATERIALS PLANNER COVID-19 Rule Out 11/14/2020 11/14/2020 11/15/2020 10:25 AM CDT COVID-19 Rule Out 01/05/2021 01/05/2021 01/05/2021 5:26 PM CDT COVID-19 Rule Out 12/02/2021 12/02/2021 12/02/2021 4:28 PM CDT COVID-19 Rule Out 05/20/2023 05/20/2023 05/20/2023 6:44 PM CDT COVID-19 Rule Out 09/11/2023 09/11/2023 09/11/2023 10:29 AM SENIOR MATERIALS PLANNER COVID-19 Rule Out 03/18/2024 03/18/2024 03/18/2024 8:30 PM CDT COVID-19 Rule Out 05/27/2024 05/27/2024 05/27/2024 7:16 PM CDT documented as of this encounter Care Teams Shank Maker Relationship Specialty Start Date End Date Tutu Hill MD [address] [facility] [address] [place] [address] PCP - General FAMILY PRACTICE 08/09/18 03/19/20 Ary Rubalcava NP [address] [facility] [address] [place] [address] PCP - General Nurse Practitioner Family 03/20/20 709/23 None, MD Santana PCP - General 03/25/20 05/14/20 [place] [address] [facility] [place] [address] PCP - General FAMILY PRACTICE 05/15/20 documented as of this encounter
--- OUTSIDE RECORDS SUMMARY | 2025-03-30 10:08 | XMS_ITS | Encounter Summary ---
Author Organization [facility] Address [address] [place] [address] Care Team Providers Care Arborer Name Role Phone Nestor Fletcher MD Primary Care Provider [phone] Encounter Details Date Type Department Care Team (Late st Contact Info) Description 11/22/2021 Nutmeg Message [facility] [address] Angelica Archer, ENVIRONMENTAL PROGRAMS MANAGER [address] [address] Test Social History Tobacco Use Types Packs/Day Years [...] Sex Assigned at Female 10/30/2019 8:35 AM CASH POSTING SPECIALIST Legal Sex Female 10:55 PM CDT Gender Identity Female 10/30/2019 8:35 AM CASH POSTING SPECIALIST Sexual Orientation Straight 10/30/2019 8: 35 AM CASH POSTING SPECIALIST COVID-19 Exposure Response Date Recorded In the last 10 days, have marielos valladares been in contact with someone who was confirmed or suspected to have Coronavirus/COVID-19? No / Unsure 11/21/2021 8:02 PM CDT documented as of this encounter [...] documented in this encounter Progress Notes * Angelica Archer NP - 11/23/2021 9:41 AM CDT Received call back from patient Dull ache to mid, upper gastric area. No wax/waning. No exertional component. She has good functional capacity at baseline. Recommend starting with echo at this time and try nitroglycerin which she has at home. House Detective to schedule echo Dx: chest pain * Angelica Archer NP - 11/23/2021 9:34 AM CDT I tried calling patient myself, no answer. Left message for her to call back this morning Need more information including exertional symptoms? Reproducible with movement or palpations? How long its been going on? And associated symptoms? EKG looks ok from my standpoint. Would not pursue exercise stress test now if ongoing symptoms. documented in this encounter Plan of Treatment Upcoming Encounters Date Type Department Care Team (Late st Contact Info) Description 04/03/2025 8:40 AM CDT Office Visit [facility] Family & Internal Medicine - [place] [address] [place] [address] [place] [address] [place], [place] [id number] 08/26/2025 9:00 AM CASH POSTING SPECIALIST Office Visit [facility] Multispecialty Care - [facility] [address] [place] [address] Francisco Levi DO [address] [facility] [address] [place] [address] documented as of this encounter Visit Diagnoses Not on filedocumented in this encounter Additional Health Concerns Infection Onset Date Last Indicated Resolved Time COVID-19 Rule Out 12/02/2021 12/02/2021 12/02/2021 4:28 PM CDT COVID-19 Rule Out 05/20/2023 05/20/2023 05/20/2023 6:44 PM CDT COVID-19 Rule Out 09/11/2023 09/11/2023 09/11/2023 10:29 AM CASH POSTING SPECIALIST COVID-19 Rule Out 03/18/2024 03/18/2024 03/18/2024 8:30 PM CDT COVID-19 Rule Out 05/27/2024 05/27/2024 05/27/2024 7:16 PM CDT Assessment Noted Time PHQ-9 Depression Total Score: 0 08/24/20 2:19 PM CASH POSTING SPECIALIST documented as of this encounter Care Teams Arborer Relationship Specialty [place] [address] [place] [address] PCP - General FAMILY PRACTICE 05/15/20 documented as of this encounter
--- OUTSIDE RECORDS SUMMARY | 2025-03-30 10:08 | XMS_ITS | Encounter Summary ---
Author Organization [facility] Address [address] [place] [address] Care Team Providers Care Manager Of Regulatory Affairs Name Role Phone Nestor Fletcher MD Primary Care Provider [phone] Encounter Details Date Type Department Care Team (Late st Contact Info) Description 07/10/2023 Clone Message Enc [facility] Medical Group Multispecialty Care - [facility] [address] [facility], [address] [place] [address] [place], [facility] Provider valium Social History Tobacco Use Types Packs/Day Years [...] Sex Assigned at Female 10/30/2019 8:35 AM STONE DECORATOR Legal Sex Female 10:55 PM CDT Gender Identity Female 10/30/2019 8:35 AM STONE DECORATOR Sexual Orientation Straight 10/30/2019 8: 35 AM STONE DECORATOR documented as of this encounter Functional Status [...] Status No 06/06/2022 12:00 PM CINTHYAT Georgia Lvoell RN Active * Calculated C-SSRS Risk Score (Lifetime/Recent) Answer Date of Assessment Author Status No Risk Indicated 07/12/2023 9:15 AM Marsha Singh RN Active * [place] Suicide Severity Rating Scale (Screener/Recent Self-Report) Question [...] Date Author Status No 06/06/2022 12:00 PM Georgia Sofia RN Active documented in this encounter Plan of Treatment Upcoming Encounters Date Type Department Care Team (Late st Contact Info) Description 04/03/2025 8:40 AM CDT Office Visit [facility] Medical Group Family & Internal Medicine [address] [address] [place] [address] [place] [address] 08/26/2025 9:00 AM STONE DECORATOR Office Visit [facility] Medical Group Multispecialty Care - [facility] [address] [place] [address] Francisco Levi, [address] [place] [address] documented as of this encounter Goals Goal Patient Goal Type Associated Problems Recent Progress Patient-Stated? Author Health - patient able to perform ADLs independently Lifestyle No Vega john er, Kareem Camacho RN documented as of this encounter Visit Diagnoses Not on filedocumented in this encounter Additional Health Concerns Infection Onset Date Last Indicated Resolved Time COVID-19 Rule Out 09/11/2023 09/11/2023 09/11/2023 10:29 AM STONE DECORATOR COVID-19 Rule Out 03/18/2024 03/18/2024 03/18/2024 8:30 PM CDT COVID-19 Rule Out 05/27/2024 05/27/2024 05/27/2024 7:16 PM CDT Assessment Noted Time PHQ-9 Depression Total Score: 0 02/26/20 22 9:40 AM CDT documented as of this encounter Care Teams Manager Of Regulatory Affairs Relationship Specialty [place] [address] [place] [address] PCP - General FAMILY PRACTICE 05/15/20 documented as of this encounter
--- OUTSIDE RECORDS SUMMARY | 2025-03-30 10:08 | XMS_ITS | Encounter Summary ---
Author Organization [facility] Address [address] [place] [address] Care Team Providers Care Ground Support Equipment Assembler Name Role Phone Nestor Fletcher MD Primary Care Provider [phone] Encounter Details Date Type Department Care Team (Late st Contact Info) Description 06/16/2021 Unitask Message Enc [facility] Medical Group Family & Internal Medicine [address] [address] Nestor Fletcher MD [address] [place] [address] RE: Question Social History Tobacco Use [...] please move on to questions 3-9 0 03/30/2021 Comments No Sex and Gender Information Value Date Recorded Sex Assigned at Female 10/30/2019 8:35 AM CONDITIONING MACHINE OPERATOR Legal Sex Female 10:55 PM CDT Gender Identity Female 10/30/2019 8:35 AM CONDITIONING MACHINE OPERATOR Sexual Orientation Straight 10/30/2019 8: 35 AM CONDITIONING MACHINE OPERATOR COVID-19 Exposure Response Date Recorded In the last month, have you been in contact with someone who was confirmed or suspected to have Coronavirus / COVID-19? No / Unsure 06/11/2021 10:10 AM CDT documented as of this [...] documented in this encounter Progress Notes * Marcela Barrientos - 06/21/2021 2:03 PM CDTSummary: Accepts Pt's Insurance [facility] in [place], [place] & [place] are the only Physical Therapy Office's that will accept the patients [employer] Better [employer] Insurance. Patient cancall [phone] and ask for which office that is the closest to her Please let our office know if you need any additional information Thank you Marcela Referral Team * Sandra Aguiar RN - 06/17/2021 3:07 PM CDT Do you know if any local PT companies take [employer] Better Health? documented in this encounter Plan of Treatment Upcoming Encounters Date Type Department Care Team (Late st Contact Info) Description 04/03/2025 8:40 AM CDT Office Visit [facility] Family & Internal Medicine - [place] [address] [place] [phone] [place] [address] [place], [place] [address] 08/26/2025 9:00 AM CONDITIONING MACHINE OPERATOR Office Visit [facility] Multispecialty Care - [facility] [address] [place] [address] Francisco Levi DO [address] [facility] [address] [place] [address] documented as of this encounter Visit Diagnoses Not on filedocumented in this encounter Additional Health Concerns Infection Onset Date Last Indicated Resolved Time COVID-19 Rule Out 12/02/2021 12/02/2021 12/02/2021 4:28 PM CDT COVID-19 Rule Out 05/20/2023 05/20/2023 05/20/2023 6:44 PM CDT COVID-19 Rule Out 09/11/2023 09/11/2023 09/11/2023 10:29 AM CONDITIONING MACHINE OPERATOR COVID-19 Rule Out 03/18/2024 03/18/2024 03/18/2024 8:30 PM CDT COVID-19 Rule Out 05/27/2024 05/27/2024 05/27/2024 7:16 PM CDT Assessment Noted Time PHQ-9 Depression Total Score: 0 03/30/20 21 11:05 AM CDT documented as of this encounter Care Teams Ground Support Equipment Assembler Relationship Specialty [place] [address] [place] [address] PCP - General FAMILY PRACTICE 05/15/20 documented as of this encounter
--- OUTSIDE RECORDS SUMMARY | 2025-03-30 10:08 | XMS_ITS | Encounter Summary ---
Author Organization [facility] Address [address] [place] [address] Care Team Providers Care Investment Banking Associate Name Role Phone Nestor Fletcher MD Primary Care Provider [phone] Encounter Details Date Type Department Care Team (Late st Contact Info) Description 10/19/2021 Vizy Message Enc [facility] Family & Internal Medicine [address] [address] Nestor Fletcher MD [address] [place] [place] [address] Question regarding DRUG MONITORING, PANEL 5, SCREEN (U) Social History Tobacco Use Types Packs/Day [...] Sex Assigned at Female 10/30/2019 8:35 AM METHODS STUDY ANALYST Legal Sex Female 10:55 PM CDT Gender Identity Female 10/30/2019 8:35 AM METHODS STUDY ANALYST Sexual Orientation Straight 10/30/2019 8: 35 AM METHODS STUDY ANALYST COVID-19 Exposure Response Date Recorded In the last 10 days, have yo u been in contact with someone who was confirmed or suspected to have Coronavirus/COVID-19? No / Unsure 10/15/2021 8:52 AM METHODS STUDY ANALYST documented as of this encounter Functional [...] 04/03/2025 8:40 AM CDT Office Visit [facility] Medical [facility] Family & Internal Medicine [facility] [address] [place] [address] [place] Fletcher [place] [address] [place] [address] 08/26/2025 9:00 AM METHODS STUDY ANALYST Office Visit [facility] Medical [facility] Multispecialty [facility] [address] [place] [address] Francisco Levi DO [address] [place] [address] documented as of this encounter Visit Diagnoses Not on filedocumented in this encounter Additional Health Concerns Infection Onset Date Last Indicated Resolved Time COVID-19 Rule Out 12/02/2021 12/02/2021 12/02/2021 4:28 PM CDT COVID-19 Rule Out 05/20/2023 05/20/2023 05/20/2023 6:44 PM CDT COVID-19 Rule Out 09/11/2023 09/11/2023 09/11/2023 10:29 AM METHODS STUDY ANALYST COVID-19 Rule Out 03/18/2024 03/18/2024 03/18/2024 8:30 PM CDT COVID-19 Rule Out 05/27/2024 05/27/2024 05/27/2024 7:16 PM CDT Assessment Noted Time PHQ-9 Depression Total Score: 0 08/24/20 21 2:19 PM METHODS STUDY ANALYST documented as of this encounter Care Teams Investment Banking Associate Relationship Specialty [place] [address] [place] [address] PCP - General FAMILY PRACTICE 05/15/20 documented as of this encounter
--- OUTSIDE RECORDS SUMMARY | 2025-03-30 10:08 | XMS_ITS | Encounter Summary ---
Author Organization [facility] Address [address] [place] [address] Care Team Providers Care Studio Technician Name Role Phone Nestor Fletcher MD Primary Care Provider [phone] Encounter Details Date Type Department Care Team (Late st Contact Info) Description 04/26/2021 51wan Message Enc [facility] Medical Group Family & Internal Medicine [address] [address] Nestor Fletcher MD [address] [place] [address] RE: Question Social History Tobacco Use [...] Sex Assigned at Female 10/30/2019 8:35 AM GOLD AND SILVER ASSAYER Legal Sex Female 10:55 PM CDT Gender Identity Female 10/30/2019 8:35 AM GOLD AND SILVER ASSAYER Sexual Orientation Straight 10/30/2019 8: 35 AM GOLD AND SILVER ASSAYER COVID-19 Exposure Response Date Recorded In the last month, have you been in contact with someone who was confirmed or suspected to have Coronavirus / COVID-19? No / Unsure 03/29/2021 11:08 AM CDT documented as of this encounter [...] [facility] Family [facility] [address] [place] [address] Nestor Fletcher MD [address] [place] [address] 08/26/2025 9:00 AM GOLD AND SILVER ASSAYER Office Visit [facility] [address] [address] [facility] [address] [facility] [address] [place] [address] Francisco Levi DO [address] [facility] [address] [place] [address] documented as of this encounter Visit Diagnoses Not on filedocumented in this encounter Additional Health Concerns Infection Onset Date Last Indicated Resolved Time COVID-19 Rule Out 12/02/2021 12/02/2021 12/02/2021 4:28 PM CDT COVID-19 Rule Out 05/20/2023 05/20/2023 05/20/2023 6:44 PM CDT COVID-19 Rule Out 09/11/2023 09/11/2023 09/11/2023 10:29 AM GOLD AND SILVER ASSAYER COVID-19 Rule Out 03/18/2024 03/18/2024 03/18/2024 8:30 PM CDT COVID-19 Rule Out 05/27/2024 05/27/2024 05/27/2024 7:16 PM CDT Assessment Noted Time PHQ-9 Depression Total Score: 0 03/30/20 21 11:05 AM CDT documented as of this encounter Care Teams Studio Technician Relationship Specialty [place] [address] [place] [address] PCP - General FAMILY PRACTICE 05/15/20 documented as of this encounter
--- OUTSIDE RECORDS SUMMARY | 2025-03-30 10:08 | XMS_ITS | Encounter Summary ---
Author Organization [facility] Address [address] [place] [address] Care Team Providers Care Collection Systems Foreman Name Role Phone Nestor Fletcher MD Primary Care Provider [phone] Encounter Details Date Type Department Care Team (Late st Contact Info) Description 11/30/2021 National Technical System[employer] Message Enc [facility] Medical Group Multispecialty Care - [facility] [address] [facility] [place] [address] Francisco Levi DO [address] [facility] [address] [place] [address] [employer] Social History Tobacco Use Types Packs/Day Years [...] Sex Assigned at Female 10/30/2019 8:35 AM CLAIMS CUSTOMER SERVICE REPRESENTATIVE Legal Sex Female 10:55 PM CDT Gender Identity Female 10/30/2019 8:35 AM CLAIMS CUSTOMER SERVICE REPRESENTATIVE Sexual Orientation Straight 10/30/2019 8: 35 AM CLAIMS CUSTOMER SERVICE REPRESENTATIVE COVID-19 Exposure Response Date Recorded In the [...] PM CDT Brinda Chau RN Active * [place] Suicide Severity Rating Scale (Screener/Recent Self-Report) Question Answer Date of Assessment Author Status 1. Wish to be (Past 1 Month) No 12/02/2021 3:38 PM CDT Liudmila Chau RN Ac tive 2. Non-Specific Active Suicidal Thoughts (Past 1 Month) No 12/02/2021 3:38 PM CDT Liudmila Chau RN Ac tive 6. Suicidal Behavior (Lifetime) No 12/02/2021 3:38 PM CDT Liudmila Chau RN Ac tive documented as of this [...] 04/03/2025 8:40 AM CDT Office Visit [facility] Family & Internal Medicine [facility] [address] [place] [address] [place] [address] [place] [address] 08/26/2025 9:00 AM CLAIMS CUSTOMER SERVICE REPRESENTATIVE Office Visit [facility] Multispecialty Care - [facility] [address] [facility] [facility] [address] [place] [address] Francisco Levi DO [address] [facility] [address] [place] [address] documented as of this encounter Visit Diagnoses Not on filedocumented in this encounter Additional Health Concerns Infection Onset Date Last Indicated Resolved Time COVID-19 Rule Out 12/02/2021 12/02/2021 12/02/2021 4:28 PM CDT COVID-19 Rule Out 05/20/2023 05/20/2023 05/20/2023 6:44 PM CDT COVID-19 Rule Out 09/11/2023 09/11/2023 09/11/2023 10:29 AM CLAIMS CUSTOMER SERVICE REPRESENTATIVE COVID-19 Rule Out 03/18/2024 03/18/2024 03/18/2024 8:30 PM CDT COVID-19 Rule Out 05/27/2024 05/27/2024 05/27/2024 7:16 PM CDT Assessment Noted Time PHQ-9 Depression Total Score: 0 08/24/20 2:19 PM CLAIMS CUSTOMER SERVICE REPRESENTATIVE documented as of this encounter Care Teams Collection Systems Foreman Relationship Specialty [place] [address] [place] [address] PCP - General FAMILY PRACTICE 05/15/20 documented as of this encounter
--- OUTSIDE RECORDS SUMMARY | 2025-03-30 10:08 | XMS_ITS | Encounter Summary ---
Author Organization [facility] Address [address] [place] [address] Care Team Providers Care Slps Name Role Phone Nestor Fletcher MD Primary Care Provider [phone] Encounter Details Date Type Department Care Team (Late st Contact Info) Description 09/01/2021 [employer] Message Enc [facility] Medical Group Family & Internal Medicine [address] [address] [place] Fletcher [place] [id number] [place] [address] Flu? Social History Tobacco Use Types Packs/Day Years Used Date Smoking Tobacco: Some Days Cigarettes 0.3 29.7 Started: 1990; Last attempted to quit: 05/15/2020 Smokeless Tobacco: Never Comments:pt states quit, res tarted and quit again Alcohol Use Standard Drinks/Week Comments Not Currently [...] Sex Assigned at Female 10/30/2019 8:35 AM LUMBER STACKER Legal Sex Female 10:55 PM CDT Gender Identity Female 10/30/2019 8:35 AM LUMBER STACKER Sexual Orientation Straight 10/30/2019 8: 35 AM LUMBER STACKER COVID-19 Exposure Response Date Recorded In the last month, have you been in contact with someone who was confirmed or suspected to have Coronavirus / COVID-19? No / Unsure 08/24/2021 2:02 PM LUMBER STACKER documented as of this encounter Functional Status [...] Description 04/03/2025 8:40 AM CDT Office Visit [facility] Medical [facility] Family & Internal Medicine [facility] [address] [place] [address] Nest[place] Fletcher [place] [address] [place] [address] 08/26/2025 9:00 AM LUMBER STACKER [facility] [place] [address] [place] [address] Francisco Levi DO [address] [place] [address] documented as of this encounter Visit Diagnoses Not on filedocumented in this encounter Additional Health Concerns Infection Onset Date Last Indicated Resolved Time COVID-19 Rule Out 12/02/2021 12/02/2021 12/02/2021 4:28 PM CDT COVID-19 Rule Out 05/20/2023 05/20/2023 05/20/2023 6:44 PM CDT COVID-19 Rule Out 09/11/2023 09/11/2023 09/11/2023 10:29 AM LUMBER STACKER COVID-19 Rule Out 03/18/2024 03/18/2024 03/18/2024 8:30 PM CDT COVID-19 Rule Out 05/27/2024 05/27/2024 05/27/2024 7:16 PM CDT Assessment Noted Time PHQ-9 Depression Total Score: 0 08/24/20 21 2:19 PM LUMBER STACKER documented as of this encounter Care Teams Slps Relationship Specialty [place] [address] [place] [address] PCP - General FAMILY PRACTICE 05/15/20 documented as of this encounter
--- OUTSIDE RECORDS SUMMARY | 2025-03-30 10:08 | XMS_ITS | Encounter Summary ---
Author Organization [facility] Address [address] [place] [address] Care Team Providers Care Outcomes Manager Name Role Phone Nestor Fletcher MD Primary Care Provider [phone] Encounter Details Date Type Department Care Team (Late st Contact Info) Description 07/14/2023 Arrogene Message Enc [facility] Medical Group Family & Internal Medicine [address] [address] Nestor Fletcher MD [address] [place] [address] Nauseous Social History Tobacco Use Types Packs/Day Years [...] Sex Assigned at Female 10/30/2019 8:35 AM ORDER EXPEDITER Legal Sex Female 10:55 PM CDT Gender Identity Female 10/30/2019 8:35 AM ORDER EXPEDITER Sexual Orientation Straight 10/30/2019 8: 35 AM ORDER EXPEDITER documented as of this encounter Functional Status [...] [facility] - [address] [address] Nestor Fletcher MD [address] [place] [address] 08/26/2025 9:00 AM ORDER EXPEDITER Office Visit [facility] Multispecialty Care - [facility] [address] [facility] [place] [address] Francisco Levi DO [address] [facility] [address] [place] [address] documented as of this encounter Goals Goal Patient Goal Type Associated Problems Recent Progress Patient-Stated? Author Health - patient able to perform ADLs independently Lifestyle No Vega i madhavi, Kareem Camacho RN documented as of this encounter Visit Diagnoses Not on filedocumented in this encounter Additional Health Concerns Infection Onset Date Last Indicated Resolved Time COVID-19 Rule Out 09/11/2023 09/11/2023 09/11/2023 10:29 AM ORDER EXPEDITER COVID-19 Rule Out 03/18/2024 03/18/2024 03/18/2024 8:30 PM CDT COVID-19 Rule Out 05/27/2024 05/27/2024 05/27/2024 7:16 PM CDT Assessment Noted Time PHQ-9 Depression Total Score: 0 02/26/20 22 9:40 AM CDT documented as of this encounter Care Teams Outcomes Manager Relationship Specialty [place] [address] [place] [address] PCP - General FAMILY PRACTICE 05/15/20 documented as of this encounter
--- OUTSIDE RECORDS SUMMARY | 2025-03-30 10:08 | XMS_ITS | Encounter Summary ---
Author Organization [facility] Address [address] [place] [address] Care Team Providers Care Renal Social Worker Name Role Phone Nestor Fletcher MD Primary Care Provider [phone] Encounter Details Date Type Department Care Team (Late st Contact Info) Description 07/05/2021 Champion Windows Message Enc [facility] Family & Internal Medicine [address] [address] Nestor Fletcher MD [address] [place] [address] RE: Question Social History Tobacco Use [...] Sex Assigned at Female 10/30/2019 8:35 AM WIRE BOUND BOX MACHINE HELPER Legal Sex Female 10:55 PM CDT Gender Identity Female 10/30/2019 8:35 AM WIRE BOUND BOX MACHINE HELPER Sexual Orientation Straight 10/30/2019 8: 35 AM WIRE BOUND BOX MACHINE HELPER COVID-19 Exposure Response Date Recorded In the last month, have you been in contact with someone who was confirmed or suspected to have Coronavirus / COVID-19? No / Unsure 07/05/2021 8:10 AM CDT documented as of this encounter [...] CDT Office Visit [facility] Medical [facility] [address] [place] [address] Nestor Fletcher [place] [address] [place] [address] 08/26/2025 9:00 AM WIRE BOUND BOX MACHINE HELPER Office Visit [facility] [address] [place] [address] Francisco Levi DO [address] [place] [address] documented as of this encounter Visit Diagnoses Not on filedocumented in this encounter Additional Health Concerns Infection Onset Date Last Indicated Resolved Time COVID-19 Rule Out 12/02/2021 12/02/2021 12/02/2021 4:28 PM CDT COVID-19 Rule Out 05/20/2023 05/20/2023 05/20/2023 6:44 PM CDT COVID-19 Rule Out 09/11/2023 09/11/2023 09/11/2023 10:29 AM WIRE BOUND BOX MACHINE HELPER COVID-19 Rule Out 03/18/2024 03/18/2024 03/18/2024 8:30 PM CDT COVID-19 Rule Out 05/27/2024 05/27/2024 05/27/2024 7:16 PM CDT Assessment Noted Time PHQ-9 Depression Total Score: 0 03/30/20 21 11:05 AM CDT documented as of this encounter Care Teams Renal Social Worker Relationship Specialty [place] [address] [place] [address] PCP - General FAMILY PRACTICE 05/15/20 documented as of this encounter
--- OUTSIDE RECORDS SUMMARY | 2025-03-30 10:08 | XMS_ITS | Encounter Summary ---
Author Organization [facility] Address [address] [place] [address] Care Team Providers Care Director Pharmacy Services Name Role Phone Nestor Fletcher MD Primary Care Provider [phone] Encounter Details Date Type Department Care Team (Late st Contact Info) Description 09/29/2021 Ad [employer] Message Enc [facility] Medical Group Family & Internal Medicine [address] [address] Nestor Fletcher MD [address] [place] [address] Appt Oct 08 Social History Tobacco Use Types Packs/Day Years [...] Sex Assigned at Female 10/30/2019 8:35 AM TRANSMISSION SYSTEM OPERATOR Legal Sex Female 10:55 PM CDT Gender Identity Female 10/30/2019 8:35 AM TRANSMISSION SYSTEM OPERATOR Sexual Orientation Straight 10/30/2019 8: 35 AM TRANSMISSION SYSTEM OPERATOR COVID-19 Exposure Response Date Recorded In the last month, have you been in contact with someone who was confirmed or suspected to have Coronavirus / COVID-19? No / Unsure 10/01/2021 1:05 PM TRANSMISSION SYSTEM OPERATOR documented as of this encounter Functional [...] Description 04/03/2025 8:40 AM CDT Office Visit [facility] Medical [facility] Family & Internal Medicine [facility] [address] [place] [address] [place] Fletcher [place] [address] [place] [address] 08/26/2025 9:00 AM TRANSMISSION SYSTEM OPERATOR Office Visit [facility]pecialty [facility] [address] [place] [address] Francisco Levi DO [address] [place] [address] documented as of this encounter Visit Diagnoses Not on filedocumented in this encounter Additional Health Concerns Infection Onset Date Last Indicated Resolved Time COVID-19 Rule Out 12/02/2021 12/02/2021 12/02/2021 4:28 PM CDT COVID-19 Rule Out 05/20/2023 05/20/2023 05/20/2023 6:44 PM CDT COVID-19 Rule Out 09/11/2023 09/11/2023 09/11/2023 10:29 AM TRANSMISSION SYSTEM OPERATOR COVID-19 Rule Out 03/18/2024 03/18/2024 03/18/2024 8:30 PM CDT COVID-19 Rule Out 05/27/2024 05/27/2024 05/27/2024 7:16 PM CDT Assessment Noted Time PHQ-9 Depression Total Score: 0 08/24/20 21 2:19 PM TRANSMISSION SYSTEM OPERATOR documented as of this encounter Care Teams Director Pharmacy Services Relationship Specialty [place] [address] [place] [address] PCP - General FAMILY PRACTICE 05/15/20 documented as of this encounter
--- OUTSIDE RECORDS SUMMARY | 2025-03-30 10:08 | XMS_ITS | Encounter Summary ---
Author Organization [facility] Address [address] [place] [address] Care Team Providers Care Neurosurgical Nurse Practitioner Name Role Phone Nestor Fletcher MD Primary Care Provider [phone] Encounter Details Date Type Department Care Team (Late st Contact Info) Description 11/08/2021 [employer] Message Enc [facility] Medical Group Family & Internal Medicine [address] [address] Nestor Fletcher MD [address] [place] [address] Sinus Social History Tobacco Use Types [...] Sex Assigned at Female 10/30/2019 8:35 AM CAMPAIGN DIRECTOR Legal Sex Female 10:55 PM CDT Gender Identity Female 10/30/2019 8:35 AM CAMPAIGN DIRECTOR Sexual Orientation Straight 10/30/2019 8: 35 AM CAMPAIGN DIRECTOR COVID-19 Exposure Response Date Recorded In the last 10 days, have yo u been in contact with someone who was confirmed or suspected to have Coronavirus/COVID-19? No / Unsure 11/02/2021 11:14 AM CAMPAIGN DIRECTOR documented as of this encounter Functional Status [...] CDT Office Visit [facility] Medical Group Family & Internal Medicine - [place] [address] [place] [address] Nestor Fletcher [place] [address] [place] [address] 08/26/2025 9:00 AM CAMPAIGN DIRECTOR Office Visit [facility] Medical Group Multispecialty Care - [address] [place] [address] Francisco Levi, DO [address] [place] [address] documented as of this encounter Visit Diagnoses Not on filedocumented in this encounter Additional Health Concerns Infection Onset Date Last Indicated Resolved Time COVID-19 Rule Out 12/02/2021 12/02/2021 12/02/2021 4:28 PM CDT COVID-19 Rule Out 05/20/2023 05/20/2023 05/20/2023 6:44 PM CDT COVID-19 Rule Out 09/11/2023 09/11/2023 09/11/2023 10:29 AM CAMPAIGN DIRECTOR COVID-19 Rule Out 03/18/2024 03/18/2024 03/18/2024 8:30 PM CDT COVID-19 Rule Out 05/27/2024 05/27/2024 05/27/2024 7:16 PM CDT Assessment Noted Time PHQ-9 Depression Total Score: 0 08/24/20 21 2:19 PM CAMPAIGN DIRECTOR documented as of this encounter Care Teams Neurosurgical Nurse Practitioner Relationship Specialty [place] [address] [place] [address] PCP - General FAMILY PRACTICE 05/15/20 documented as of this encounter
--- OUTSIDE RECORDS SUMMARY | 2025-03-30 10:08 | XMS_ITS | Encounter Summary ---
Author Organization [facility] Address [address] [place] [address] Care Team Providers Care Boat Operator Name Role Phone Nestor Fletcher MD Primary Care Provider [phone] Encounter Details Date Type Department Care Team (Late st Contact Info) Description 07/07/2021 Spark Message Enc [facility] Medical Group Family & Internal Medicine [address] [address] Nestor Fletcher MD [address] [place] [address] RE: Question Social History Tobacco Use [...] Sex Assigned at Female 10/30/2019 8:35 AM MEDIA MARKETING MANAGER Legal Sex Female 10:55 PM CDT Gender Identity Female 10/30/2019 8:35 AM MEDIA MARKETING MANAGER Sexual Orientation Straight 10/30/2019 8: 35 AM MEDIA MARKETING MANAGER COVID-19 Exposure Response Date Recorded [...] CDT Office Visit [facility] Medical [facility] Family & Internal Medicine [facility] [address] [place] [address] [place] Fletcher [place] [id number] [place] [address] 08/26/2025 9:00 AM MEDIA MARKETING MANAGER Office Visit [facility] [address] [place] [address] Francisco Levi DO [address] [place] [address] documented as of this encounter Visit Diagnoses Not on filedocumented in this encounter Additional Health Concerns Infection Onset Date Last Indicated Resolved Time COVID-19 Rule Out 12/02/2021 12/02/2021 12/02/2021 4:28 PM CDT COVID-19 Rule Out 05/20/2023 05/20/2023 05/20/2023 6:44 PM CDT COVID-19 Rule Out 09/11/2023 09/11/2023 09/11/2023 10:29 AM MEDIA MARKETING MANAGER COVID-19 Rule Out 03/18/2024 03/18/2024 03/18/2024 8:30 PM CDT COVID-19 Rule Out 05/27/2024 05/27/2024 05/27/2024 7:16 PM CDT Assessment Noted Time PHQ-9 Depression Total Score: 0 03/30/20 21 11:05 AM CDT documented as of this encounter Care Teams Boat Operator Relationship Specialty [place] [address] [place] [address] PCP - General FAMILY PRACTICE 05/15/20 documented as of this encounter
--- OUTSIDE RECORDS SUMMARY | 2025-03-30 10:08 | XMS_ITS | Encounter Summary ---
Author Organization [facility] Address [address] [place] [address] Care Team Providers Care Ethnic Studies Professor Name Role Phone Nestor Fletcher MD Primary Care Provider [phone] Encounter Details Date Type Department Care Team (Late st Contact Info) Description 06/08/2021 LOOKSIMA Message [facility] [address] Cullen Sprague MD [address] [address] Question Social History Tobacco Use Types Packs/Day [...] Sex Assigned at Female 10/30/2019 8:35 AM PICKED EDGE SEWING MACHINE OPERATOR Legal Sex Female 10:55 PM CDT Gender Identity Female 10/30/2019 8:35 AM PICKED EDGE SEWING MACHINE OPERATOR Sexual Orientation Straight 10/30/2019 8: 35 AM PICKED EDGE SEWING MACHINE OPERATOR COVID-19 Exposure Response Date Recorded [...] Progress Notes * Vee Eddy RN - 06/08/2021 11:57 AM CDT Patient advised of the below. Patient denies any OTC medications at all except for tumeric. * Angelica Archer NP - 06/08/2021 11:45 AM CDT Call her with instruction and further questioning: Take an extra 1/2 tablet of losartan- hctz Is she using NSAIDs OTC? Decongestants? Etc. Im not sure why she keeps getting these spurts of elevated readings. * Vee Eddy RN - 06/08/2021 11:25 AM CDT Please advise documented in this encounter Plan of Treatment Upcoming Encounters Date Type Department Care Team (Late st Contact Info) Description 04/03/2025 8:40 AM CDT Office Visit [facility] Family & Internal Medicine - [place] [address] [place] [address] [place] [address] [place], [place] [address] 08/26/2025 9:00 AM PICKED EDGE SEWING MACHINE OPERATOR Office Visit [facility] Multispecialty Care - [facility] [address] [place] [address] Francisco Levi DO [address] [place] [address] documented as of this encounter Visit Diagnoses Not on filedocumented in this encounter Additional Health Concerns Infection Onset Date Last Indicated Resolved Time COVID-19 Rule Out 12/02/2021 12/02/2021 12/02/2021 4:28 PM CDT COVID-19 Rule Out 05/20/2023 05/20/2023 05/20/2023 6:44 PM CDT COVID-19 Rule Out 09/11/2023 09/11/2023 09/11/2023 10:29 AM PICKED EDGE SEWING MACHINE OPERATOR COVID-19 Rule Out 03/18/2024 03/18/2024 03/18/2024 8:30 PM CDT COVID-19 Rule Out 05/27/2024 05/27/2024 05/27/2024 7:16 PM CDT Assessment Noted Time PHQ-9 Depression Total Score: 0 03/30/20 21 11:05 AM CDT documented as of this encounter Care Teams Ethnic Studies Professor Relationship Specialty [place] [address] [place] [address] PCP - General FAMILY PRACTICE 05/15/20 documented as of this encounter
--- OUTSIDE RECORDS SUMMARY | 2025-03-30 10:08 | XMS_ITS | Encounter Summary ---
Author Organization [facility] Address [address] [place] [address] Care Team Providers Care Formal Wear Rental Clerk Name Role Phone Nestor Fletcher MD Primary Care Provider [phone] Encounter Details Date Type Department Care Team (Late st Contact Info) Description 10/18/2021 Ever[employer] Message Enc [facility] Medical Group Family & Internal Medicine [address] [address] Nestor Fletcher MD [address] [place] [address] Needing help Social History Tobacco Use Types Packs/Day Years [...] Assigned at Female 10/30/2019 8:35 AM MACHINE DESIGNER Legal Sex Female 10:55 PM CDT Gender Identity Female 10/30/2019 8:35 AM MACHINE DESIGNER Sexual Orientation Straight 10/30/2019 8: 35 AM MACHINE DESIGNER COVID-19 Exposure Response Date Recorded In the last 10 days, have yo u been in contact with someone who was confirmed or suspected to have Coronavirus/COVID-19? No / Unsure 10/15/2021 8:52 AM MACHINE DESIGNER documented as of this encounter Functional Status [...] Description 04/03/2025 8:40 AM CDT Office Visit [facility] Medical Group Family & Internal Medicine - [place] [address] [place] [address] [place] Fletcher [place] [address] [place] [address] 08/26/2025 9:00 AM MACHINE DESIGNER Office Visit [facility] Group Multispecialty Care - [address] [place] [address] Francisco Levi DO [address] [place] [address] documented as of this encounter Visit Diagnoses Not on filedocumented in this encounter Additional Health Concerns Infection Onset Date Last Indicated Resolved Time COVID-19 Rule Out 12/02/2021 12/02/2021 12/02/2021 4:28 PM CDT COVID-19 Rule Out 05/20/2023 05/20/2023 05/20/2023 6:44 PM CDT COVID-19 Rule Out 09/11/2023 09/11/2023 09/11/2023 10:29 AM MACHINE DESIGNER COVID-19 Rule Out 03/18/2024 03/18/2024 03/18/2024 8:30 PM CDT COVID-19 Rule Out 05/27/2024 05/27/2024 05/27/2024 7:16 PM CDT Assessment Noted Time PHQ-9 Depression Total Score: 0 08/24/20 21 2:19 PM MACHINE DESIGNER documented as of this encounter Care Teams Formal Wear Rental Clerk Relationship Specialty [place] [address] [place] [address] PCP - General FAMILY PRACTICE 05/15/20 documented as of this encounter
--- OUTSIDE RECORDS SUMMARY | 2025-03-30 10:08 | XMS_ITS | Encounter Summary ---
Author Organization [facility] Address [address] [place] [address] Care Team Providers Care Office Employee Name Role Phone Nestor Fletcher MD Primary Care Provider [phone] Encounter Details Date Type Department Care Team (Late st Contact Info) Description 10/18/2023 ChangeTip Message Enc [facility] Medical Group Family & Internal Medicine [address] [address] Nestor Fletcher MD [address] [place] [address] Pain Social History Tobacco Use Types [...] Date Recorded Patient Health Questionnaire-2 Score 0 10/06/2023 Comments No Sex and Gender Information Value Date Recorded Sex Assigned at Female 10/30/2019 8:35 AM KNIFE OPERATOR Legal Sex Female 10:55 PM CDT Gender Identity Female 10/30/2019 8:35 AM KNIFE OPERATOR Sexual Orientation Straight 10/30/2019 8: 35 AM KNIFE OPERATOR documented as of this encounter Functional [...] Description 04/03/2025 8:40 AM CDT Office Visit [facility] Family & Internal Medicine - [address] [address] Nestor Fletcher MD [address] [place] [address] 08/26/2025 9:00 AM KNIFE OPERATOR Office Visit [facility] Multispecialty Care - [facility] [address] [place] [address] Francisco Levi DO [address] [facility] [address] [place] [address] documented as of this encounter Goals Goal Patient Goal Type Associated Problems Recent Progress Patient-Stated? Author Health - patient able to perform ADLs independently Lifestyle No Vega hendrickson, Kareem Camacho RN documented as of this encounter Visit Diagnoses Not on filedocumented in this encounter Additional Health Concerns Infection Onset Date Last Indicated Resolved Time COVID-19 Rule Out 03/18/2024 03/18/2024 03/18/2024 8:30 PM CDT COVID-19 Rule Out 05/27/2024 05/27/2024 05/27/2024 7:16 PM CDT Assessment Noted Time PHQ-9 Depression Total Score: 0 02/26/20 22 9:40 AM CDT documented as of this encounter Care Teams Office Employee Relationship Specialty [place] [address] [facility] [address] PCP - General FAMILY PRACTICE 05/15/20 documented as of this encounter
--- OUTSIDE RECORDS SUMMARY | 2025-03-30 10:08 | XMS_ITS | Encounter Summary ---
Author Organization [facility] Address [address] [place] [address] Care Team Providers Care Informatics Physician Liaison Name Role Phone Nestor Fletcher MD Primary Care Provider [phone] Encounter Details Date Type Department Care Team (Late st Contact Info) Description 09/28/2023 GroundLinkt Message Enc [facility] Medical Group Multispecialty Care - [facility] [address] [facility] [place] [address] Eusebio Ron MD 3 [place] [address] Fall Social History Tobacco Use Types Packs/Day [...] Sex Assigned at Female 10/30/2019 8:35 AM LEAD NITRATE PROCESSOR Legal Sex Female 10:55 PM CDT Gender Identity Female 10/30/2019 8:35 AM LEAD NITRATE PROCESSOR Sexual Orientation Straight 10/30/2019 8: 35 AM LEAD NITRATE PROCESSOR documented as of this encounter Functional [...] Description 04/03/2025 8:40 AM CDT Office Visit [facility] Family & Internal Medicine [facility] [address] [place] [address] Nestor Fletcher MD [address] [place] [phone] 08/26/2025 9:00 AM LEAD NITRATE PROCESSOR Office Visit [facility] Multispecialty Care - [address] [place] [address] Francisco Levi DO [address] [facility] [address] [place] [address] documented as of this encounter Goals Goal [...] documented as of this encounter Care Teams Informatics Physician Liaison Relationship Specialty [place] [address] [place] [address] PCP - General FAMILY PRACTICE 05/15/20 documented as of this encounter
--- OUTSIDE RECORDS SUMMARY | 2025-03-30 10:08 | XMS_ITS | Encounter Summary ---
Author Organization [facility] Address [address] [place] [address] Care Team Providers Care Financial Compliance Officer Name Role Phone Nestor Fletcher MD Primary Care Provider [phone] Encounter Details Date Type Department Care Team (Late st Contact Info) Description 04/09/2021 Disqus Message [facility] [address] Cullen Sprague MD [address] [address] RE: Question Social History Tobacco [...] Sex Assigned at Female 10/30/2019 8:35 AM AIRFRAME AND POWER PLANT MECHANIC Legal Sex Female 10:55 PM CDT Gender Identity Female 10/30/2019 8:35 AM AIRFRAME AND POWER PLANT MECHANIC Sexual Orientation Straight 10/30/2019 8: 35 AM AIRFRAME AND POWER PLANT MECHANIC COVID-19 Exposure Response Date Recorded In the [...] Progress Notes * Vee Eddy RN - 04/09/2021 2:06 PM CDT See below documented in this encounter Plan of Treatment Upcoming Encounters Date Type Department Care Team (Late st Contact Info) Description 04/03/2025 8:40 AM CDT Office Visit [facility] Medical Group Family & Internal Medicine [address] [address] [place] [address] [place] [address] 08/26/2025 9:00 AM AIRFRAME AND POWER PLANT MECHANIC Office Visit [facility] Medical Group Multispecialty Care - [facility] [address] [place] [address] Francisco Levi DO [address] [place] [address] documented as of this encounter Visit Diagnoses Not on filedocumented in this encounter Additional Health Concerns Infection Onset Date Last Indicated Resolved Time COVID-19 Rule Out 12/02/2021 12/02/2021 12/02/2021 4:28 PM CDT COVID-19 Rule Out 05/20/2023 05/20/2023 05/20/2023 6:44 PM CDT COVID-19 Rule Out 09/11/2023 09/11/2023 09/11/2023 10:29 AM AIRFRAME AND POWER PLANT MECHANIC COVID-19 Rule Out 03/18/2024 03/18/2024 03/18/2024 8:30 PM CDT COVID-19 Rule Out 05/27/2024 05/27/2024 05/27/2024 7:16 PM CDT Assessment Noted Time PHQ-9 Depression Total Score: 0 03/30/20 21 11:05 AM CDT documented as of this encounter Care Teams Financial Compliance Officer Relationship Specialty [place] [address] [place] [address] PCP - General FAMILY PRACTICE 05/15/20 documented as of this encounter
--- OUTSIDE RECORDS SUMMARY | 2025-03-30 10:08 | XMS_ITS | Encounter Summary ---
Author Organization [facility] Address [address] [place] [address] Care Team Providers Care Wholesale Manager Name Role Phone Nestor Fletcher MD Primary Care Provider [phone] Encounter Details Date Type Department Care Team (Late st Contact Info) Description 04/20/2021 Repeatit Message Enc [facility] Medical Group Family & Internal Medicine [address] [address] Nestor Fletcher MD [address] [place] [address] RE: Question Social History Tobacco Use [...] Sex Assigned at Female 10/30/2019 8:35 AM UNIT EDUCATOR Legal Sex Female 10:55 PM CDT Gender Identity Female 10/30/2019 8:35 AM UNIT EDUCATOR Sexual Orientation Straight 10/30/2019 8: 35 AM UNIT EDUCATOR COVID-19 Exposure Response Date Recorded In the [...] CAMPUS Medical Group Family & Internal Medicine [facility] [address] [place] [address] Nestor Fletcher MD [address] [place] [address] 08/26/2025 9:00 AM UNIT EDUCATOR Office Visit [facility] Medical Group Multispecialty Care - [facility] [address] [place] [address] Francisco Levi DO [address] [place] [address] documented as of this encounter Visit Diagnoses Not on filedocumented in this encounter Additional Health Concerns Infection Onset Date Last Indicated Resolved Time COVID-19 Rule Out 12/02/2021 12/02/2021 12/02/2021 4:28 PM CDT COVID-19 Rule Out 05/20/2023 05/20/2023 05/20/2023 6:44 PM CDT COVID-19 Rule Out 09/11/2023 09/11/2023 09/11/2023 10:29 AM UNIT EDUCATOR COVID-19 Rule Out 03/18/2024 03/18/2024 03/18/2024 8:30 PM CDT COVID-19 Rule Out 05/27/2024 05/27/2024 05/27/2024 7:16 PM CDT Assessment Noted Time PHQ-9 Depression Total Score: 0 03/30/20 21 11:05 AM CDT documented as of this encounter Care Teams Wholesale Manager Relationship Specialty [place] [address] [place] [address] PCP - General FAMILY PRACTICE 05/15/20 documented as of this encounter
--- OUTSIDE RECORDS SUMMARY | 2025-03-30 10:08 | XMS_ITS | Encounter Summary ---
Author Organization [facility] Address [address] [place] [address] Care Team Providers Care Lacquer Pin Press Operator Name Role Phone Nestor Fletcher MD Primary Care Provider [phone] Encounter Details Date Type Department Care Team (Late st Contact Info) Description 07/06/2021 [employer] Message Enc [facility] Family & Internal Medicine [address] [address] Nestor Fletcher MD [address] [place] [address] RE: Question Social History Tobacco Use [...] Sex Assigned at Female 10/30/2019 8:35 AM GRADUATE RECRUITER Legal Sex Female 10:55 PM CDT Gender Identity Female 10/30/2019 8:35 AM GRADUATE RECRUITER Sexual Orientation Straight 10/30/2019 8: 35 AM GRADUATE RECRUITER COVID-19 Exposure Response Date Recorded In the [...] Progress Notes * Marina Archer RN - 07/07/2021 2:20 PM CDT See other task on this. documented in this encounter Plan of Treatment Upcoming Encounters Date Type Department Care Team (Late st Contact Info) Description 04/03/2025 8:40 AM CDT Office Visit [facility] Family & Internal Medicine [address] [address] [place] [address] [place] [address] 08/26/2025 9:00 AM GRADUATE RECRUITER Office Visit [facility] Multispecialty Care - [facility] [address] [place] [address] Francisco Levi DO [address] [place] [address] documented as of this encounter Visit Diagnoses Not on filedocumented in this encounter Additional Health Concerns Infection Onset Date Last Indicated Resolved Time COVID-19 Rule Out 12/02/2021 12/02/2021 12/02/2021 4:28 PM CDT COVID-19 Rule Out 05/20/2023 05/20/2023 05/20/2023 6:44 PM CDT COVID-19 Rule Out 09/11/2023 09/11/2023 09/11/2023 10:29 AM GRADUATE RECRUITER COVID-19 Rule Out 03/18/2024 03/18/2024 03/18/2024 8:30 PM CDT COVID-19 Rule Out 05/27/2024 05/27/2024 05/27/2024 7:16 PM CDT Assessment Noted Time PHQ-9 Depression Total Score: 0 03/30/20 21 11:05 AM CDT documented as of this encounter Care Teams Lacquer Pin Press Operator Relationship Specialty [place] [address] [place] [address] PCP - General FAMILY PRACTICE 05/15/20 documented as of this encounter
--- OUTSIDE RECORDS SUMMARY | 2025-03-30 10:08 | XMS_ITS | Encounter Summary ---
Author Organization [facility] Address [address] [place] [address] Care Team Providers Care Skating Rink Manager Name Role Phone Nestor Fletcher MD Primary Care Provider [phone] Encounter Details Date Type Department Care Team (Late st Contact Info) Description 07/19/2021 [employer] Message Enc [facility] Medical Group Family & Internal Medicine [address] [address] Nestor Fletcher MD [address] [place] [address] MRI Social History Tobacco Use Types Packs/Day Years [...] Sex Assigned at Female 10/30/2019 8:35 AM ORACLE AGILE PLM CONSULTANT Legal Sex Female 10:55 PM CDT Gender Identity Female 10/30/2019 8:35 AM ORACLE AGILE PLM CONSULTANT Sexual Orientation Straight 10/30/2019 8: 35 AM ORACLE AGILE PLM CONSULTANT COVID-19 Exposure Response Date Recorded In [...] CDT Office Visit [facility] Medical [facility] Family & Internal Medicine [facility] [address] [place] [address] Nest[place] Fletcher [place] [address] [place] [address] 08/26/2025 9:00 AM ORACLE AGILE PLM CONSULTANT [facility] [place] [address] [place] [address] Francisco Levi DO [address] [place] [address] documented as of this encounter Visit Diagnoses Not on filedocumented in this encounter Additional Health Concerns Infection Onset Date Last Indicated Resolved Time COVID-19 Rule Out 12/02/2021 12/02/2021 12/02/2021 4:28 PM CDT COVID-19 Rule Out 05/20/2023 05/20/2023 05/20/2023 6:44 PM CDT COVID-19 Rule Out 09/11/2023 09/11/2023 09/11/2023 10:29 AM ORACLE AGILE PLM CONSULTANT COVID-19 Rule Out 03/18/2024 03/18/2024 03/18/2024 8:30 PM CDT COVID-19 Rule Out 05/27/2024 05/27/2024 05/27/2024 7:16 PM CDT Assessment Noted Time PHQ-9 Depression Total Score: 0 03/30/20 21 11:05 AM CDT documented as of this encounter Care Teams Skating Rink Manager Relationship Specialty [place] [address] [place] [address] PCP - General FAMILY PRACTICE 05/15/20 documented as of this encounter
--- OUTSIDE RECORDS SUMMARY | 2025-03-30 10:08 | XMS_ITS | Encounter Summary ---
Author Organization [facility] Address [address] [place] [address] Care Team Providers Care Spearer Name Role Phone Nestor Fletcher MD Primary Care Provider [phone] Encounter Details Date Type Department Care Team (Late st Contact Info) Description 06/24/2024 [employer] Message Enc [facility] Medical Group Family & Internal Medicine [address] [address] Nestor Fletcher MD [address] [place] [address] Appt for 8:20 Social History Tobacco Use Types Packs/Day Years [...] Sex Assigned at Female 10/30/2019 8:35 AM LEATHER TOGGLER Legal Sex Female 10:55 PM CDT Gender Identity Female 10/30/2019 8:35 AM LEATHER TOGGLER Sexual Orientation Straight 10/30/2019 8: 35 AM LEATHER TOGGLER documented as of this encounter Functional Status [...] Description 04/03/2025 8:40 AM CDT Office Visit [facility] Family & Internal Medicine - [place] [address] [place] [address] Nestor Fletcher MD [address] [place] [address] 08/26/2025 9:00 AM LEATHER TOGGLER Office Visit [facility] Multispecialty Care - [address] [place] [address] Francisco Levi DO [address] [place] [address] [address] [place] [address] documented as of this encounter Goals Goal [...] documented as of this encounter Care Teams Spearer Relationship Specialty [place] [address] [place] [address] PCP - General FAMILY PRACTICE 05/15/20 documented as of this encounter
--- OUTSIDE RECORDS SUMMARY | 2025-03-30 10:08 | XMS_ITS | Encounter Summary ---
Author Organization [facility] Address [address] [place] [address] Care Team Providers Care Film Archivist Name Role Phone Nestor Fletcher MD Primary Care Provider [phone] Encounter Details Date Type Department Care Team (Late st Contact Info) Description 04/09/2021 [employer] Message Enc [facility] Medical Group Family & Internal Medicine [address] [address] Nestor Fletcher MD [address] [place] [address] Question Social History Tobacco Use Types [...] Sex Assigned at Female 10/30/2019 8:35 AM UROLOGY NURSE Legal Sex Female 10:55 PM CDT Gender Identity Female 10/30/2019 8:35 AM UROLOGY NURSE Sexual Orientation Straight 10/30/2019 8: 35 AM UROLOGY NURSE COVID-19 Exposure Response Date Recorded In the [...] Progress Notes * Marina Archer RN - 04/12/2021 9:01 AM CDT Pt messaged [facility] in regards to this and the GAS REFRIGERATOR SERVICER responded to pt. documented in this encounter Plan of Treatment Upcoming Encounters Date Type Department Care Team (Late st Contact Info) Description 04/03/2025 8:40 AM CDT Office Visit [facility] Medical Group Family & Internal Medicine [address] [place] [address] [place] [address] 08/26/2025 9:00 AM UROLOGY NURSE Office Visit [facility] Medical [facility] Multispecialty Care - [facility] [address] [place] [address] Francisco Levi DO [address] [facility] [address] [place] [address] documented as of this encounter Visit Diagnoses Not on filedocumented in this encounter Additional Health Concerns Infection Onset Date Last Indicated Resolved Time COVID-19 Rule Out 12/02/2021 12/02/2021 12/02/2021 4:28 PM CDT COVID-19 Rule Out 05/20/2023 05/20/2023 05/20/2023 6:44 PM CDT COVID-19 Rule Out 09/11/2023 09/11/2023 09/11/2023 10:29 AM UROLOGY NURSE COVID-19 Rule Out 03/18/2024 03/18/2024 03/18/2024 8:30 PM CDT COVID-19 Rule Out 05/27/2024 05/27/2024 05/27/2024 7:16 PM CDT Assessment Noted Time PHQ-9 Depression Total Score: 0 03/30/20 21 11:05 AM CDT documented as of this encounter Care Teams Film Archivist Relationship Specialty [place] [address] [place] [address] PCP - General FAMILY PRACTICE 05/15/20 documented as of this encounter
--- OUTSIDE RECORDS SUMMARY | 2025-03-30 10:08 | XMS_ITS | Encounter Summary ---
Author Organization [facility] Address [address] [place] [address] Care Team Providers Care Solution Professional Name Role Phone Nestor Fletcher MD Primary Care Provider [phone] Encounter Details Date Type Department Care Team (Late st Contact Info) Description 10/13/2021 [employer] Message Enc [facility] Medical Group Family & Internal Medicine [address] [address] Nestor Fletcher MD [address] [place] [address] Pain Social History Tobacco Use Types [...] Sex Assigned at Female 10/30/2019 8:35 AM ASPHALT SPREADER OPERATOR Legal Sex Female 10:55 PM CDT Gender Identity Female 10/30/2019 8:35 AM ASPHALT SPREADER OPERATOR Sexual Orientation Straight 10/30/2019 8: 35 AM ASPHALT SPREADER OPERATOR COVID-19 Exposure Response Date Recorded In the last 10 days, have yo u been in contact with someone who was confirmed or suspected to have Coronavirus/COVID-19? No / Unsure 10/15/2021 8:52 AM ASPHALT SPREADER OPERATOR documented as of this encounter Functional [...] Description 04/03/2025 8:40 AM CDT Office Visit [facility] Medical [facility] Family & Internal Medicine [facility] [address] [place] [address] [place] Fletcher [place] [address] [place] [address] 08/26/2025 9:00 AM ASPHALT SPREADER OPERATOR Office Visit [facility] Medical [facility] Multispecialty [facility] [address] [place] [address] Francisco Levi DO [address] [place] [address] documented as of this encounter Visit Diagnoses Not on filedocumented in this encounter Additional Health Concerns Infection Onset Date Last Indicated Resolved Time COVID-19 Rule Out 12/02/2021 12/02/2021 12/02/2021 4:28 PM CDT COVID-19 Rule Out 05/20/2023 05/20/2023 05/20/2023 6:44 PM CDT COVID-19 Rule Out 09/11/2023 09/11/2023 09/11/2023 10:29 AM ASPHALT SPREADER OPERATOR COVID-19 Rule Out 03/18/2024 03/18/2024 03/18/2024 8:30 PM CDT COVID-19 Rule Out 05/27/2024 05/27/2024 05/27/2024 7:16 PM CDT Assessment Noted Time PHQ-9 Depression Total Score: 0 08/24/20 21 2:19 PM ASPHALT SPREADER OPERATOR documented as of this encounter Care Teams Solution Professional Relationship Specialty [place] [address] [place] [address] PCP - General FAMILY PRACTICE 05/15/20 documented as of this encounter
--- OUTSIDE RECORDS SUMMARY | 2025-03-30 10:08 | XMS_ITS | Encounter Summary ---
Author Organization [facility] Address [address] [place] [address] Care Team Providers Care Chief Ultrasound Technologist Name Role Phone Nestor Fletcher MD Primary Care Provider [phone] Encounter Details Date Type Department Care Team (Late st Contact Info) Description 08/03/2021 [employer] Message [facility] [address] Angelica Archer, PAY STATION ATTENDANT [address] [address] Drop in BP Social History Tobacco Use Types Packs/Day Years [...] Sex Assigned at Female 10/30/2019 8:35 AM AUTO CARE CENTER MANAGER Legal Sex Female 10:55 PM CDT Gender Identity Female 10/30/2019 8:35 AM AUTO CARE CENTER MANAGER Sexual Orientation Straight 10/30/2019 8: 35 AM AUTO CARE CENTER MANAGER COVID-19 Exposure Response Date Recorded In the last month, have you been in contact with someone who was confirmed or suspected to have Coronavirus / COVID-19? No / Unsure 08/05/2021 9:15 AM AUTO CARE CENTER MANAGER documented as of this encounter Functional [...] Office Visit [facility] Medical [facility] Family & Internal Medicine [facility] [address] [place] [address] Nest[place] Fletcher [place] [address] [place] [address] 08/26/2025 9:00 AM AUTO CARE CENTER MANAGER Office Visit [facility] Multispecialty [facility] [address] [place] [address] Francisco Levi DO [address] [place] [address] documented as of this encounter Visit Diagnoses Not on filedocumented in this encounter Additional Health Concerns Infection Onset Date Last Indicated Resolved Time COVID-19 Rule Out 12/02/2021 12/02/2021 12/02/2021 4:28 PM CDT COVID-19 Rule Out 05/20/2023 05/20/2023 05/20/2023 6:44 PM CDT COVID-19 Rule Out 09/11/2023 09/11/2023 09/11/2023 10:29 AM AUTO CARE CENTER MANAGER COVID-19 Rule Out 03/18/2024 03/18/2024 03/18/2024 8:30 PM CDT COVID-19 Rule Out 05/27/2024 05/27/2024 05/27/2024 7:16 PM CDT Assessment Noted Time PHQ-9 Depression Total Score: 0 03/30/20 21 11:05 AM CDT documented as of this encounter Care Teams Chief Ultrasound Technologist Relationship Specialty [place] [address] [place] [address] PCP - General FAMILY PRACTICE 05/15/20 documented as of this encounter
--- OUTSIDE RECORDS SUMMARY | 2025-03-30 10:08 | XMS_ITS | Encounter Summary ---
Author Organization [facility] Address [address] [place] [address] Care Team Providers Care Emergency Service Worker Name Role Phone Nestor Fletcher MD Primary Care Provider [phone] Encounter Details Date Type Department Care Team (Late st Contact Info) Description 09/29/2021 [employer] Message Enc [facility] Medical Group Family & Internal Medicine [address] [address] Nestor Fletcher MD [address] [place] [address] Pain meds and follow up Social History Tobacco Use Types Packs/Day Years [...] Sex Assigned at Female 10/30/2019 8:35 AM GLOBAL EXPANSION SALES DIRECTOR Legal Sex Female 10:55 PM CDT Gender Identity Female 10/30/2019 8:35 AM GLOBAL EXPANSION SALES DIRECTOR Sexual Orientation Straight 10/30/2019 8: 35 AM GLOBAL EXPANSION SALES DIRECTOR COVID-19 Exposure Response Date Recorded In the last month, have you been in contact with someone who was confirmed or suspected to have Coronavirus / COVID-19? No / Unsure 10/01/2021 1:05 PM GLOBAL EXPANSION SALES DIRECTOR documented as of this encounter Functional [...] documented in this encounter Progress Notes * Tayla Collado MA - 09/30/2021 8:06 AM CST Duplicate request. AL EXPANSION SALES DIRECTOR documented in this encounter Plan of Treatment Upcoming Encounters Date Type Department Care Team (Late st Contact Info) Description 04/03/2025 8:40 AM CDT Office Visit [facility] Medical Group Family & Internal Medicine [address] [address] [place] [address] [place] [address] 08/26/2025 9:00 AM GLOBAL EXPANSION SALES DIRECTOR Office Visit [facility] Medical Group Multispecialty Care - [facility] [address] [place] [address] Francisco Levi DO [address] [place] [address] documented as of this encounter Visit Diagnoses Not on filedocumented in this encounter Additional Health Concerns Infection Onset Date Last Indicated Resolved Time COVID-19 Rule Out 12/02/2021 12/02/2021 12/02/2021 4:28 PM CDT COVID-19 Rule Out 05/20/2023 05/20/2023 05/20/2023 6:44 PM CDT COVID-19 Rule Out 09/11/2023 09/11/2023 09/11/2023 10:29 AM GLOBAL EXPANSION SALES DIRECTOR COVID-19 Rule Out 03/18/2024 03/18/2024 03/18/2024 8:30 PM CDT COVID-19 Rule Out 05/27/2024 05/27/2024 05/27/2024 7:16 PM CDT Assessment Noted Time PHQ-9 Depression Total Score: 0 08/24/20 21 2:19 PM GLOBAL EXPANSION SALES DIRECTOR documented as of this encounter Care Teams Emergency Service Worker Relationship Specialty [place] [address] [place] [address] PCP - General FAMILY PRACTICE 05/15/20 documented as of this encounter
--- OUTSIDE RECORDS SUMMARY | 2025-03-30 10:08 | XMS_ITS | Encounter Summary ---
Author Organization [facility] Address [address] [place] [address] Care Team Providers Care Sodder Name Role Phone Nestor Fletcher MD Primary Care Provider [phone] Encounter Details Date Type Department Care Team (Late st Contact Info) Description 11/29/2021 [employer] Message Enc [facility] Medical Group Family & Internal Medicine [address] [address] Nestor Fletcher MD [address] [place] [address] Pain Social History Tobacco Use Types [...] Assigned at Female 10/30/2019 8:35 AM ELECTRONIC PARTS DESIGNER Legal Sex Female 10:55 PM CDT Gender Identity Female 10/30/2019 8:35 AM ELECTRONIC PARTS DESIGNER Sexual Orientation Straight 10/30/2019 8: 35 AM ELECTRONIC PARTS DESIGNER COVID-19 Exposure Response Date Recorded In [...] PM CDT Brinda Chau RN Active * [place] Suicide Severity Rating Scale (Screener/Recent Self-Report) Question [...] [facility] Family [facility] Internal Medicine [facility] [address] [place] [address] [place] [address] [place], [place] [id number] 08/26/2025 9:00 AM ELECTRONIC PARTS DESIGNER Office Visit [facility] [address] [place] [address] Francisco Levi DO [address] [facility] [place] [address] documented as of this encounter Visit Diagnoses Not on filedocumented in this encounter Additional Health Concerns Infection Onset Date Last Indicated Resolved Time COVID-19 Rule Out 12/02/2021 12/02/2021 12/02/2021 4:28 PM CDT COVID-19 Rule Out 05/20/2023 05/20/2023 05/20/2023 6:44 PM CDT COVID-19 Rule Out 09/11/2023 09/11/2023 09/11/2023 10:29 AM ELECTRONIC PARTS DESIGNER COVID-19 Rule Out 03/18/2024 03/18/2024 03/18/2024 8:30 PM CDT COVID-19 Rule Out 05/27/2024 05/27/2024 05/27/2024 7:16 PM CDT Assessment Noted Time PHQ-9 Depression Total Score: 0 08/24/20 21 2:19 PM ELECTRONIC PARTS DESIGNER documented as of this encounter Care Teams Sodder Relationship Specialty [place] [address] [place] [address] PCP - General FAMILY PRACTICE 05/15/20 documented as of this encounter
--- OUTSIDE RECORDS SUMMARY | 2025-03-30 10:08 | XMS_ITS | Encounter Summary ---
Author Organization [facility] Address [address] [place] [address] Care Team Providers Care Marketing Assistant Name Role Phone Nestor Fletcher MD Primary Care Provider [phone] Encounter Details Date Type Department Care Team (Late st Contact Info) Description 08/02/2021 [employer]ep Message Enc [facility] Medical Group Family & Internal Medicine [address] [address] Nest[place] Fletcher [place] [address] [place] [address] Mid back pain Social History Tobacco Use Types Packs/Day [...] Sex Assigned at Female 10/30/2019 8:35 AM COMPUTERIZED MILL MILL RECORDER Legal Sex Female 10:55 PM CDT Gender Identity Female 10/30/2019 8:35 AM COMPUTERIZED MILL MILL RECORDER Sexual Orientation Straight 10/30/2019 8: 35 AM COMPUTERIZED MILL MILL RECORDER COVID-19 Exposure Response Date Recorded In the last month, have you been in contact with someone who was confirmed or suspected to have Coronavirus / COVID-19? No / Unsure 08/05/2021 9:15 AM COMPUTERIZED MILL MILL RECORDER documented as of this encounter Functional [...] HOSPITAL Medical Group Family & Internal Medicine [facility] [address] [place] [address] [place] Fletcher [place] [address] [place] [address] 08/26/2025 9:00 AM COMPUTERIZED MILL MILL RECORDER Office Visit [facility] Medical [facility] Multispecialty [facility] [address] [place] [address] Francisco Levi DO [address] [place] [address] documented as of this encounter Visit Diagnoses Not on filedocumented in this encounter Additional Health Concerns Infection Onset Date Last Indicated Resolved Time COVID-19 Rule Out 12/02/2021 12/02/2021 12/02/2021 4:28 PM CDT COVID-19 Rule Out 05/20/2023 05/20/2023 05/20/2023 6:44 PM CDT COVID-19 Rule Out 09/11/2023 09/11/2023 09/11/2023 10:29 AM COMPUTERIZED MILL MILL RECORDER COVID-19 Rule Out 03/18/2024 03/18/2024 03/18/2024 8:30 PM CDT COVID-19 Rule Out 05/27/2024 05/27/2024 05/27/2024 7:16 PM CDT Assessment Noted Time PHQ-9 Depression Total Score: 0 03/30/20 21 11:05 AM CDT documented as of this encounter Care Teams Marketing Assistant Relationship Specialty [place] [address] [place] [address] PCP - General FAMILY PRACTICE 05/15/20 documented as of this encounter
--- OUTSIDE RECORDS SUMMARY | 2025-03-30 10:08 | XMS_ITS | Encounter Summary ---
Author Organization [facility] Address [address] [place] [address] Care Team Providers Care 911 Emergency Dispatcher Name Role Phone Nestor Fletcher MD Primary Care Provider [phone] Encounter Details Date Type Department Care Team (Late st Contact Info) Description 06/14/2021 [email or web address] Message Enc [facility] Medical Group Family & Internal Medicine [address] [address] Nestor Fletcher MD [address] [place] [address] Question Social History Tobacco Use Types [...] Sex Assigned at Female 10/30/2019 8:35 AM DATA ASSISTANT Legal Sex Female 10:55 PM CDT Gender Identity Female 10/30/2019 8:35 AM DATA ASSISTANT Sexual Orientation Straight 10/30/2019 8: 35 AM DATA ASSISTANT COVID-19 Exposure Response Date Recorded In [...] Progress Notes * Marina Archer RN - 06/17/2021 8:00 AM CDT MRI was denied due to pt not having any PT or xrays done. Pt informed. Xrays ordered. She is going to call her insurance company and see who will accept her insurance for the PT. documented in this encounter Plan of Treatment Upcoming Encounters Date Type Department Care Team (Late st Contact Info) Description 04/03/2025 8:40 AM CDT Office Visit [facility] Family & Internal Medicine [facility] [address] [place] [address] [place] [address] [place] [address] 08/26/2025 9:00 AM DATA ASSISTANT Office Visit [facility] Multispecialty Care - [facility] [address] [place] [address] Francisco Levi DO [address] [facility] [address] [facility] [address] [place] [address] documented as of this encounter Visit Diagnoses Not on filedocumented in this encounter Additional Health Concerns Infection Onset Date Last Indicated Resolved Time COVID-19 Rule Out 12/02/2021 12/02/2021 12/02/2021 4:28 PM CDT COVID-19 Rule Out 05/20/2023 05/20/2023 05/20/2023 6:44 PM CDT COVID-19 Rule Out 09/11/2023 09/11/2023 09/11/2023 10:29 AM DATA ASSISTANT COVID-19 Rule Out 03/18/2024 03/18/2024 03/18/2024 8:30 PM CDT COVID-19 Rule Out 05/27/2024 05/27/2024 05/27/2024 7:16 PM CDT Assessment Noted Time PHQ-9 Depression Total Score: 0 03/30/20 21 11:05 AM CDT documented as of this encounter Care Teams 911 Emergency Dispatcher Relationship Specialty [place] [address] [place] [address] PCP - General FAMILY PRACTICE 05/15/20 documented as of this encounter
--- OUTSIDE RECORDS SUMMARY | 2025-03-30 10:08 | XMS_ITS | Encounter Summary ---
Author Organization [facility] Address [address] [place] [address] Care Team Providers Care Crane Engineer Name Role Phone Nestor Fletcher MD Primary Care Provider [phone] [phone] Encounter Details Date Type Department Care Team (Late st Contact Info) Description 09/06/2021 ExploraMed Message Enc [facility] Medical Group Family & Internal Medicine [address] [address] Nestor Fletcher MD [address] [place] [address] Covid Social History Tobacco Use Types Packs/Day Years [...] Sex Assigned at Female 10/30/2019 8:35 AM WRINKLE CHASER Legal Sex Female 10:55 PM CDT Gender Identity Female 10/30/2019 8:35 AM WRINKLE CHASER Sexual Orientation Straight 10/30/2019 8: 35 AM WRINKLE CHASER COVID-19 Exposure Response Date Recorded In the last month, have you been in contact with someone who was confirmed or suspected to have Coronavirus / COVID-19? No / Unsure 08/24/2021 2:02 PM WRINKLE CHASER documented as of this encounter Functional Status [...] CDT Office Visit [facility] Medical [facility] Family & Internal Medicine [facility] [address] [place] [address] [place] Fletcher [place] [address] [place] [address] 08/26/2025 9:00 AM WRINKLE CHASER [facility] [place] [address] [facility] [address] [place] [address] Francisco Levi DO [address] [facility] [address] [place] [address] documented as of this encounter Visit Diagnoses Diagnosis Cough- Primary documented in this encounter Additional Health Concerns Infection Onset Date Last Indicated Resolved Time COVID-19 Rule Out 12/02/2021 12/02/2021 12/02/2021 4:28 PM CDT COVID-19 Rule Out 05/20/2023 05/20/2023 05/20/2023 6:44 PM CDT COVID-19 Rule Out 09/11/2023 09/11/2023 09/11/2023 10:29 AM WRINKLE CHASER COVID-19 Rule Out 03/18/2024 03/18/2024 03/18/2024 8:30 PM CDT COVID-19 Rule Out 05/27/2024 05/27/2024 05/27/2024 7:16 PM CDT Assessment Noted Time PHQ-9 Depression Total Score: 0 08/24/20 21 2:19 PM WRINKLE CHASER documented as of this encounter Care Teams Crane Engineer Relationship Specialty [place] [address] [place] [address] PCP - General FAMILY PRACTICE 05/15/20 documented as of this encounter
--- OUTSIDE RECORDS SUMMARY | 2025-03-30 10:08 | XMS_ITS | Encounter Summary ---
Author Organization [facility] Address [address] [place] [address] Care Team Providers Care Auto Overhauler Name Role Phone Nestor Fletcher MD Primary Care Provider [phone] Encounter Details Date Type Department Care Team (Late st Contact Info) Description 06/15/2024 Rise Message Enc [facility] Medical Group Family & Internal Medicine [address] [address] Nestor Fletcher MD [address] [place] [address] Help Social History Tobacco Use Types Packs/Day Years [...] Sex Assigned at Female 10/30/2019 8:35 AM REFERENCE TEST CLERK Legal Sex Female 10:55 PM CDT Gender Identity Female 10/30/2019 8:35 AM REFERENCE TEST CLERK Sexual Orientation Straight 10/30/2019 8: 35 AM REFERENCE TEST CLERK documented as of this encounter Functional Status [...] 8:40 AM CDT Office Visit [facility] Medical Group Family & Internal Medicine - [place] [address] [place] [address] Nestor Fletcher MD [address] [place] [address] 08/26/2025 9:00 AM REFERENCE TEST CLERK Office Visit [facility] Multispecialty Care - [facility] 3 [facility] [address] [place] [address] Francisco Levi DO 3 [facility] [address] [place] [address] documented as of this encounter Goals Goal [...] documented as of this encounter Care Teams Auto Overhauler Relationship Specialty [place] [address] [place] [address] PCP - General FAMILY PRACTICE 05/15/20 documented as of this encounter
--- OUTSIDE RECORDS SUMMARY | 2025-03-30 10:08 | XMS_ITS | Encounter Summary ---
Author Organization [facility] Address [address] [place] [address] Care Team Providers Care Rest Room Maid Name Role Phone Nestor Fletcher MD Primary Care Provider [phone] Encounter Details Date Type Department Care Team (Late st Contact Info) Description 09/21/2023 TopiVert Message Enc [facility] Medical Group Family & Internal Medicine [address] [address] Nestor Feltcher MD [address] [place] [address] Fall Social History Tobacco Use Types Packs/Day [...] Sex Assigned at Female 10/30/2019 8:35 AM HELP DESK ASSOCIATE Legal Sex Female 10:55 PM CDT Gender Identity Female 10/30/2019 8:35 AM HELP DESK ASSOCIATE Sexual Orientation Straight 10/30/2019 8: 35 AM HELP DESK ASSOCIATE documented as of this encounter Functional [...] [facility] Family & Internal Medicine - [address] [address] Nestor Fletcher MD [address] [place] [address] 08/26/2025 9:00 AM HELP DESK ASSOCIATE Office Visit [facility] Multispecialty Care - [facility] 3 [facility] [address] [place] [address] Francisco Levi DO [address] [facility] [address] [place] [address] documented as of this encounter Goals Goal [...] documented as of this encounter Care Teams Rest Room Maid Relationship Specialty [place] [address] [facility] [place] [address] PCP - General FAMILY PRACTICE 05/15/20 documented as of this encounter
--- OUTSIDE RECORDS SUMMARY | 2025-03-30 10:08 | XMS_ITS | Encounter Summary ---
Author Organization [facility] Address [address] [place] [address] Care Team Providers Care Banking Manager Name Role Phone Nestor Fletcher MD Primary Care Provider [phone] Encounter Details Date Type Department Care Team (Late st Contact Info) Description 06/27/2023 CoinSeed Message Enc [facility] Medical Group Family & Internal Medicine [address] [address] Nestor Fletcher MD [address] [place] [address] Question Social History Tobacco Use Types [...] Sex Assigned at Female 10/30/2019 8:35 AM PACKING AND FINAL ASSEMBLY SUPERVISOR Legal Sex Female 10:55 PM CDT Gender Identity Female 10/30/2019 8:35 AM PACKING AND FINAL ASSEMBLY SUPERVISOR Sexual Orientation Straight 10/30/2019 8: 35 AM PACKING AND FINAL ASSEMBLY SUPERVISOR documented as of this encounter Functional [...] 04/03/2025 8:40 AM CDT Office Visit [facility] Family & Internal Medicine - [address] [address] Nestor Fletcher MD [address] [place] [address] 08/26/2025 9:00 AM PACKING AND FINAL ASSEMBLY SUPERVISOR Office Visit [facility] Multispecialty Care - [facility] 3 [facility] [address] [place] [address] Francisco Levi DO 3 [facility] [address] [place] [address] documented as of this encounter Goals Goal Patient Goal Type Associated Problems Recent Progress Patient-Stated? Author Health - patient able to perform ADLs independently Lifestyle No Vega hendrickson, Kareem Camacho RN documented as of this encounter Visit Diagnoses Not on filedocumented in this encounter Additional Health Concerns Infection Onset Date Last Indicated Resolved Time COVID-19 Rule Out 09/11/2023 09/11/2023 09/11/2023 10:29 AM PACKING AND FINAL ASSEMBLY SUPERVISOR COVID-19 Rule Out 03/18/2024 03/18/2024 03/18/2024 8:30 PM CDT COVID-19 Rule Out 05/27/2024 05/27/2024 05/27/2024 7:16 PM CDT Assessment Noted Time PHQ-9 Depression Total Score: 0 02/26/20 22 9:40 AM CDT documented as of this encounter Care Teams Banking Manager Relationship Specialty [place] [address] [place] [address] PCP - General FAMILY PRACTICE 05/15/20 documented as of this encounter
--- OUTSIDE RECORDS SUMMARY | 2025-03-30 10:08 | XMS_ITS | Encounter Summary ---
Author Organization [facility] Address [address] [place] [address] Care Team Providers Care Medicaid Analyst Name Role Phone Nestor Fletcher MD Primary Care Provider [phone] Encounter Details Date Type Department Care Team (Late st Contact Info) Description 06/27/[address] [facility] Medical Group Family & Internal Medicine [address] [address] Nestor Fletcher MD [address] [place] [address] RE: Question Social History Tobacco Use [...] Assigned at Female 10/30/2019 8:35 AM PERSONAL SECURITY SPECIALIST Legal Sex Female 10:55 PM CDT Gender Identity Female 10/30/2019 8:35 AM PERSONAL SECURITY SPECIALIST Sexual Orientation Straight 10/30/2019 8: 35 AM PERSONAL SECURITY SPECIALIST COVID-19 Exposure Response Date Recorded In the last month, have you been in contact with someone who was confirmed or suspected to have Coronavirus / COVID-19? No / Unsure 06/28/2021 5:19 PM CDT documented as of this encounter [...] of Assessment Author Status No Risk Indicated 06/28/2021 5:22 PM CDT Parrish [place] RN Active * [place] Suicide Severity Rating Scale (Screener/Recent Self-Report) Question Answer Date of Assessment Author Status 1. Wish to be (Past 1 Month) No 06/28/2021 5:22 PM CINTHYAT Melisa [place] RN Ac tive 2. Non-Specific Active Suicidal Thoughts (Past 1 Month) No 06/28/2021 5:22 PM CDT Melisa [place] RN Ac tive 6. Suicidal Behavior (Lifetime) No 06/28/2021 5:22 PM CDT Melisa [place] RN Ac tive documented as of this [...] Description 04/03/2025 8:40 AM CDT Office Visit [facility] Family & Internal Medicine [facility] [address] [place] [address] [place] [address] [place] [address] 08/26/2025 9:00 AM PERSONAL SECURITY SPECIALIST Office Visit [facility] Multispecialty Care - [facility] [address] [facility] [address] [place] [address] Francisco Levi DO [address] [facility] [address] [place] [address] documented as of this encounter Visit Diagnoses Not on filedocumented in this encounter Additional Health Concerns Infection Onset Date Last Indicated Resolved Time COVID-19 Rule Out 12/02/2021 12/02/2021 12/02/2021 4:28 PM CDT COVID-19 Rule Out 05/20/2023 05/20/2023 05/20/2023 6:44 PM CDT COVID-19 Rule Out 09/11/2023 09/11/2023 09/11/2023 10:29 AM PERSONAL SECURITY SPECIALIST COVID-19 Rule Out 03/18/2024 03/18/2024 03/18/2024 8:30 PM CDT COVID-19 Rule Out 05/27/2024 05/27/2024 05/27/2024 7:16 PM CDT Assessment Noted Time PHQ-9 Depression Total Score: 0 03/30/20 21 11:05 AM CDT documented as of this encounter Care Teams Medicaid Analyst Relationship Specialty [place] [address] [place] [address] PCP - General FAMILY PRACTICE 05/15/20 documented as of this encounter
--- OUTSIDE RECORDS SUMMARY | 2025-03-30 10:08 | XMS_ITS | Encounter Summary ---
Author Organization [facility] Address [address] [place] [address] Care Team Providers Care Sweatband Perforator Name Role Phone Nestor Fletcher MD Primary Care Provider [phone] Encounter Details Date Type Department Care Team (Late st Contact Info) Description 06/09/2021 Victor Message Enc [facility] Medical Group Family & Internal Medicine [address] [address] Nestor Fletcher MD [address] [place] [address] RE: Question Social History Tobacco Use [...] Sex Assigned at Female 10/30/2019 8:35 AM FINAL INSPECTOR Legal Sex Female 10:55 PM CDT Gender Identity Female 10/30/2019 8:35 AM FINAL INSPECTOR Sexual Orientation Straight 10/30/2019 8: 35 AM FINAL INSPECTOR COVID-19 Exposure Response Date Recorded In [...] Description 04/03/2025 8:40 AM CDT Office Visit [facility] Medical Group Family & Internal Medicine [facility] [address] [place] [address] Nestor Fletcher MD [address] [place] [address] 08/26/2025 9:00 AM FINAL INSPECTOR Office Visit [facility] Medical Group Multispecialty Care - [facility] [address] [facility] [address] [place] [address] Francisco Levi DO [address] [facility] [address] [place] [address] documented as of this encounter Visit Diagnoses Not on filedocumented in this encounter Additional Health Concerns Infection Onset Date Last Indicated Resolved Time COVID-19 Rule Out 12/02/2021 12/02/2021 12/02/2021 4:28 PM CDT COVID-19 Rule Out 05/20/2023 05/20/2023 05/20/2023 6:44 PM CDT COVID-19 Rule Out 09/11/2023 09/11/2023 09/11/2023 10:29 AM FINAL INSPECTOR COVID-19 Rule Out 03/18/2024 03/18/2024 03/18/2024 8:30 PM CDT COVID-19 Rule Out 05/27/2024 05/27/2024 05/27/2024 7:16 PM CDT Assessment Noted Time PHQ-9 Depression Total Score: 0 03/30/20 21 11:05 AM CDT documented as of this encounter Care Teams Sweatband Perforator Relationship Specialty [place] [address] [place] [address] PCP - General FAMILY PRACTICE 05/15/20 documented as of this encounter
--- OUTSIDE RECORDS SUMMARY | 2025-03-30 10:08 | XMS_ITS | Encounter Summary ---
Author Organization [facility] Address [address] [place] [address] Care Team Providers Care Risk Prevention Engineer Name Role Phone Nestor Fletcher MD Primary Care Provider [phone] Encounter Details Date Type Department Care Team (Late st Contact Info) Description 03/18/2024 CaroGen Message Enc [facility] Medical Group Family & Internal Medicine [address] [address] Nestor Fletcher MD [address] [place] [address] Chest pain Social History Tobacco Use Types Packs/Day [...] Assigned at Female 10/30/2019 8:35 AM GLOBAL RISK MANAGEMENT DIRECTOR Legal Sex Female 10:55 PM CDT Gender Identity Female 10/30/2019 8:35 AM GLOBAL RISK MANAGEMENT DIRECTOR Sexual Orientation Straight 10/30/2019 8: 35 AM GLOBAL RISK MANAGEMENT DIRECTOR documented as of this encounter Functional [...] of Assessment Author Status No Risk Indicated 03/18/2024 7:46 PM CINTHYAT Snow Geller RN Active * [place] Suicide Severity Rating Scale (Screener/Recent Self-Report) Question Answer Date of Assessment Author Status 1. Wish to be (Past 1 Month) No 03/18/2024 7:46 PM CINTHYAT Amita Geller RN Ac tive 2. Non-Specific Active Suicidal Thoughts (Past 1 Month) No 03/18/2024 7:46 PM Amita Samuels RN Ac tive 6. Suicidal Behavior (Lifetime) No 03/18/2024 7:46 PM Amita Samuels RN Ac tive documented as of this encounter Mental Status * Because of a physical, mental, or emotional condition, do you have serious difficulty concentrating, remembering, or making decisions? Answer Entry Date Author Status No 06/06/2022 12:00 PM Georgia Sofia RN Active documented in this encounter Progress Notes * Marina Archer RN - 03/19/2024 12:31 PM CDT Can someone please add pt to Dr Fletcher's cancellation list? Thank you! * Jaida Hale MA - 03/18/2024 3:15 PM CDT Printed for dr bush documented in this encounter Plan of Treatment Upcoming Encounters Date Type Department Care Team (Late st Contact Info) Description 04/03/2025 8:40 AM CDT Office Visit [facility] Family & Internal Medicine - [place] [address] [place] [address] [place] [address] [place], [place] [phone] 08/26/2025 9:00 AM GLOBAL RISK MANAGEMENT DIRECTOR Office Visit [facility] Multispecialty Care - [facility] [address] [facility] [address] [place] [address] Francisco Levi DO [address] [facility] [address] [place] [address] documented as of this encounter Goals Goal [...] documented as of this encounter Care Teams Risk Prevention Engineer Relationship Specialty [place] [address] [place] [address] PCP - General FAMILY PRACTICE 05/15/20 documented as of this encounter
--- OUTSIDE RECORDS SUMMARY | 2025-03-30 10:08 | XMS_ITS | Encounter Summary ---
Author Organization [facility] Address [address] [place] [address] Care Team Providers Care Local Superintendent Name Role Phone Nestor Fletcher MD Primary Care Provider [phone] Encounter Details Date Type Department Care Team (Late st Contact Info) Description 09/02/2021 [employer] Message Enc [facility] Medical Group Family & Internal Medicine [address] [address] Nestor Fletcher MD [address] [place] [address] MRI Social History Tobacco Use Types [...] Sex Assigned at Female 10/30/2019 8:35 AM PANEL MACHINE OPERATOR Legal Sex Female 10:55 PM CDT Gender Identity Female 10/30/2019 8:35 AM PANEL MACHINE OPERATOR Sexual Orientation Straight 10/30/2019 8: 35 AM PANEL MACHINE OPERATOR COVID-19 Exposure Response Date Recorded In the last month, have you been in contact with someone who was confirmed or suspected to have Coronavirus / COVID-19? No / Unsure 08/24/2021 2:02 PM PANEL MACHINE OPERATOR documented as of this encounter [...] 2:12 AM CDT Kelly aHyes RN Active documented in this encounter Plan of Treatment Upcoming Encounters Date Type Department Care Team (Late st Contact Info) Description 04/03/2025 8:40 AM CDT Office Visit [facility] Medical Group Family & Internal Medicine [facility] [address] [place] [address] [place] Fletcher [place] [address] [place] [address] 08/26/2025 9:00 AM PANEL MACHINE OPERATOR Office Visit [facility] [address] [place] [address] Francisco Levi DO [address] [facility] [address] [place] [address] documented as of this encounter Visit Diagnoses Not on filedocumented in this encounter Additional Health Concerns Infection Onset Date Last Indicated Resolved Time COVID-19 Rule Out 12/02/2021 12/02/2021 12/02/2021 4:28 PM CDT COVID-19 Rule Out 05/20/2023 05/20/2023 05/20/2023 6:44 PM CDT COVID-19 Rule Out 09/11/2023 09/11/2023 09/11/2023 10:29 AM PANEL MACHINE OPERATOR COVID-19 Rule Out 03/18/2024 03/18/2024 03/18/2024 8:30 PM CDT COVID-19 Rule Out 05/27/2024 05/27/2024 05/27/2024 7:16 PM CDT Assessment Noted Time PHQ-9 Depression Total Score: 0 08/24/20 21 2:19 PM PANEL MACHINE OPERATOR documented as of this encounter Care Teams Local Superintendent Relationship Specialty [place] [address] [place] [address] PCP - General FAMILY PRACTICE 05/15/20 documented as of this encounter
--- OUTSIDE RECORDS SUMMARY | 2025-03-30 10:08 | XMS_ITS | Encounter Summary ---
Author Organization [facility] Address [address] [place] [address] Care Team Providers Care Diamond Driller Name Role Phone Nestor Fletcher MD Primary Care Provider [phone] Encounter Details Date Type Department Care Team (Late st Contact Info) Description 11/23/2021 [employer] Message Enc [facility] Medical Group Multispecialty Care - [facility] 3 [facility], [address] [place] [address] Pura Velazquez APRN [address] [facility] [address] [place] [address] Appointment. Social History Tobacco Use Types Packs/Day Years [...] Assigned at Female 10/30/2019 8:35 AM SUPERVISOR POULTRY HATCHERY Legal Sex Female 10:55 PM CDT Gender Identity Female 10/30/2019 8:35 AM SUPERVISOR POULTRY HATCHERY Sexual Orientation Straight 10/30/2019 8: 35 AM SUPERVISOR POULTRY HATCHERY COVID-19 Exposure Response Date Recorded In the [...] 04/03/2025 8:40 AM CDT Office Visit [facility] Medical Group Family & Internal Medicine [facility] [address] [place] [address] [place] Fletcher [place] [address] [place] [address] 08/26/2025 9:00 AM SUPERVISOR POULTRY HATCHERY Office Visit [facility] Medical Group Multispecialty Care - [facility]'s [address] [place] [address] LeviDagobertoshaheen [address] [place] [address] documented as of this encounter Visit Diagnoses Not on filedocumented in this encounter Additional Health Concerns Infection Onset Date Last Indicated Resolved Time COVID-19 Rule Out 12/02/2021 12/02/2021 12/02/2021 4:28 PM CDT COVID-19 Rule Out 05/20/2023 05/20/2023 05/20/2023 6:44 PM CDT COVID-19 Rule Out 09/11/2023 09/11/2023 09/11/2023 10:29 AM SUPERVISOR POULTRY HATCHERY COVID-19 Rule Out 03/18/2024 03/18/2024 03/18/2024 8:30 PM CDT COVID-19 Rule Out 05/27/2024 05/27/2024 05/27/2024 7:16 PM CDT Assessment Noted Time PHQ-9 Depression Total Score: 0 08/24/20 21 2:19 PM SUPERVISOR POULTRY HATCHERY documented as of this encounter Care Teams Diamond Driller Relationship Specialty [place] [address] [place] [address] PCP - General FAMILY PRACTICE 05/15/20 documented as of this encounter
--- OUTSIDE RECORDS SUMMARY | 2025-03-30 10:08 | XMS_ITS | Encounter Summary ---
Author Organization [facility] Address [address] [place] [address] Care Team Providers Care Inventory Audit Clerk Name Role Phone Nestor Fletcher MD Primary Care Provider [phone] Encounter Details Date Type Department Care Team (Late st Contact Info) Description 11/23/2021 Imalogixt Message Enc [facility] Medical Group Multispecialty Care - [facility] [address] [facility], [address] [place] [phone] Pura Velazquez APRN [address] [facility] [address] [place] [address] Last message Social History Tobacco Use Types Packs/Day [...] Sex Assigned at Female 10/30/2019 8:35 AM PRINCIPAL DATA ARCHITECT Legal Sex Female 10:55 PM CDT Gender Identity Female 10/30/2019 8:35 AM PRINCIPAL DATA ARCHITECT Sexual Orientation Straight 10/30/2019 8: 35 AM PRINCIPAL DATA ARCHITECT COVID-19 Exposure Response Date Recorded In [...] Description 04/03/2025 8:40 AM CDT Office Visit [facility] Medical Group Family & Internal Medicine [facility] [address] [place] [address] Nest[place] Fletcher [place] [id number] [place] [address] 08/26/2025 9:00 AM PRINCIPAL DATA ARCHITECT Office Visit [facility] Medical Group Multispecialty Care - [facility]'s [address] [place] [address] LeviDagobertoshaheen [address] [place] [address] documented as of this encounter Visit Diagnoses Not on filedocumented in this encounter Additional Health Concerns Infection Onset Date Last Indicated Resolved Time COVID-19 Rule Out 12/02/2021 12/02/2021 12/02/2021 4:28 PM CDT COVID-19 Rule Out 05/20/2023 05/20/2023 05/20/2023 6:44 PM CDT COVID-19 Rule Out 09/11/2023 09/11/2023 09/11/2023 10:29 AM PRINCIPAL DATA ARCHITECT COVID-19 Rule Out 03/18/2024 03/18/2024 03/18/2024 8:30 PM CDT COVID-19 Rule Out 05/27/2024 05/27/2024 05/27/2024 7:16 PM CDT Assessment Noted Time PHQ-9 Depression Total Score: 0 08/24/20 21 2:19 PM PRINCIPAL DATA ARCHITECT documented as of this encounter Care Teams Inventory Audit Clerk Relationship Specialty [place] [address] [place] [address] PCP - General FAMILY PRACTICE 05/15/20 documented as of this encounter
--- OUTSIDE RECORDS SUMMARY | 2025-03-30 10:08 | XMS_ITS | Encounter Summary ---
Author Organization [facility] Address [facility] [place] [address] Care Team Providers Care Therapist Name Role Phone Tutu Hill MD Primary Care Provider + ShreveportAry NP Primary Care Provider + None, Provider Primary Care Provider Nestor Ma MD Primary Care Provider [phone] Encounter Details Date Type Department Care Team (Late st Contact Info) Description 09/18/2002 Abstract [facility] Conversion , Generic ConversionMD Social History Tobacco Use Types Packs/Day Years Used Date Smoking Tobacco: Never Assessed Comments Unknown Sex and Gender Information Value Date Recorded Sex Assigned at Female 10/30/2019 8:35 AM TANNER ROTARY DRUM CONTINUOUS PROCESS Legal Sex Female 10:55 PM CDT Gender Identity Female 10/30/2019 8:35 AM TANNER ROTARY DRUM CONTINUOUS PROCESS Sexual Orientation Straight 10/30/2019 8: 35 AM TANNER ROTARY DRUM CONTINUOUS PROCESS documented as of this encounter Plan of Treatment Upcoming Encounters Date Type Department Care Team (Late st Contact Info) Description 04/03/2025 8:40 AM CDT [facility] Family & Internal Medicine [address] [address] Nestor Fletcher MD [address] [place] [address] 08/26/2025 9:00 AM TANNER ROTARY DRUM CONTINUOUS PROCESS Office Visit [facility] - [facility] [address] [place] [phone] Francisco Levi DO [address] [place] [address] documented as of this encounter Visit Diagnoses [...] Rule Out 07/06/2020 07/06/2020 07/08/2020 11:00 PM TANNER ROTARY DRUM CONTINUOUS PROCESS COVID-19 Rule Out 07/09/2020 07/09/2020 07/12/2020 10:16 AM TANNER ROTARY DRUM CONTINUOUS PROCESS COVID-19 Rule Out 11/14/2020 11/14/2020 11/15/2020 10:25 AM CDT COVID-19 Rule Out 01/05/2021 01/05/2021 01/05/2021 5:26 PM CDT COVID-19 Rule Out 12/02/2021 12/02/2021 12/02/2021 4:28 PM CDT COVID-19 Rule Out 05/20/2023 05/20/2023 05/20/2023 6:44 PM CDT COVID-19 Rule Out 09/11/2023 09/11/2023 09/11/2023 10:29 AM TANNER ROTARY DRUM CONTINUOUS PROCESS COVID-19 Rule Out 03/18/2024 03/18/2024 03/18/2024 8:30 PM CDT COVID-19 Rule Out 05/27/2024 05/27/2024 05/27/2024 7:16 PM CDT documented as of this encounter Care Teams Therapist Relationship Specialty Start Date End Date Tutu Hill MD [address] [facility] [address] [place] [phone] PCP - General FAMILY PRACTICE 08/09/18 03/19/20 Ary Rubalcava NP [address] [facility] [address] [place] [address] PCP - General Nurse Practitioner Family 03/20/20 709/23 None, MD Santana PCP - General 03/25/20 05/14/20 [place] [address] [facility] [place] [address] PCP - General FAMILY PRACTICE 05/15/20 documented as of this encounter
--- OUTSIDE RECORDS SUMMARY | 2025-03-30 10:08 | XMS_ITS | Encounter Summary ---
Author Organization [facility] Address [address] [place] [address] Care Team Providers Care Fence Manufacture Supervisor Name Role Phone Nestor Fletcher MD Primary Care Provider +1 [phone] Encounter Details Date Type Department Care Team (Late st Contact Info) Description 08/05/2024 [email or web address] Message Enc [facility] Family & Internal Medicine [address] [address] Nestor Fletcher MD [address] [place] [address] Fall Social History Tobacco Use Types [...] Sex Assigned at Female 10/30/2019 8:35 AM FOREPART LASTER Legal Sex Female 10:55 PM CDT Gender Identity Female 10/30/2019 8:35 AM FOREPART LASTER Sexual Orientation Straight 10/30/2019 8: 35 AM FOREPART LASTER documented as of this encounter Functional Status [...] CDT Office Visit [facility] Family & Internal Medicine - [place] [address] [place] [address] Nestor Fletcher MD [address] [place] [address] 08/26/2025 9:00 AM FOREPART LASTER Office Visit [facility]pecialty Care - [facility] [address] [facility] [address] [place] [address] Francisco Levi DO 3 [facility] [address] [place] [address] documented as of this encounter Goals Goal [...] documented as of this encounter Care Teams Fence Manufacture Supervisor Relationship Specialty [place] [address] [place] [address] PCP - General FAMILY PRACTICE 05/15/20 documented as of this encounter
--- OUTSIDE RECORDS SUMMARY | 2025-03-30 10:08 | XMS_ITS | Encounter Summary ---
Author Organization [facility] Address [address] [place] [address] Care Team Providers Care Experimental Plastics Fabricator Name Role Phone Nestor Fletcher MD Primary Care Provider [phone] Encounter Details Date Type Department Care Team (Late st Contact Info) Description 06/04/2021 [employer] Message Enc [facility] Medical Group Family & Internal Medicine [address] [address] Nestor Fletcher MD [address] [place] [address] RE: Follow Up/Update Social History Tobacco [...] Sex Assigned at Female 10/30/2019 8:35 AM PROFESSIONAL WRESTLER Legal Sex Female 10:55 PM CDT Gender Identity Female 10/30/2019 8:35 AM PROFESSIONAL WRESTLER Sexual Orientation Straight 10/30/2019 8: 35 AM PROFESSIONAL WRESTLER COVID-19 Exposure Response Date Recorded In the last month, have you been in contact with someone who was confirmed or suspected to have Coronavirus / COVID-19? No / Unsure 05/19/2021 8:23 AM CDT documented as of this encounter [...] Description 04/03/2025 8:40 AM CDT Office Visit [facility] Medical [facility] Family & Internal Medicine [facility] [address] [place] [address] [place] Fletcher [place] [address] [place] [id number] 08/26/2025 9:00 AM PROFESSIONAL WRESTLER Office Visit [facility] - [facility] [address] [place] [address] Francisco Levi DO [address] [place] [address] documented as of this encounter Visit Diagnoses Not on filedocumented in this encounter Additional Health Concerns Infection Onset Date Last Indicated Resolved Time COVID-19 Rule Out 12/02/2021 12/02/2021 12/02/2021 4:28 PM CDT COVID-19 Rule Out 05/20/2023 05/20/2023 05/20/2023 6:44 PM CDT COVID-19 Rule Out 09/11/2023 09/11/2023 09/11/2023 10:29 AM PROFESSIONAL WRESTLER COVID-19 Rule Out 03/18/2024 03/18/2024 03/18/2024 8:30 PM CDT COVID-19 Rule Out 05/27/2024 05/27/2024 05/27/2024 7:16 PM CDT Assessment Noted Time PHQ-9 Depression Total Score: 0 03/30/20 21 11:05 AM CDT documented as of this encounter Care Teams Experimental Plastics Fabricator Relationship Specialty [place] [address] [place] [address] PCP - General FAMILY PRACTICE 05/15/20 documented as of this encounter
--- OUTSIDE RECORDS SUMMARY | 2025-03-30 10:08 | XMS_ITS | Encounter Summary ---
Author Organization [facility] Address [address] [place] [address] Care Team Providers Care Director East Coast Sales Name Role Phone Nestor Fletcher MD Primary Care Provider [phone] Encounter Details Date Type Department Care Team (Late st Contact Info) Description 09/15/2021 [employer] Message Enc [facility] Medical Group Family & Internal Medicine [address] [address] Nestor Fletcher MD [address] [place] [address] Referral Social History Tobacco Use Types Packs/Day [...] Sex Assigned at Female 10/30/2019 8:35 AM ICT QUALITY ASSURANCE ENGINEER Legal Sex Female 10:55 PM CDT Gender Identity Female 10/30/2019 8:35 AM ICT QUALITY ASSURANCE ENGINEER Sexual Orientation Straight 10/30/2019 8: 35 AM ICT QUALITY ASSURANCE ENGINEER COVID-19 Exposure Response Date Recorded In the last month, have you been in contact with someone who was confirmed or suspected to have Coronavirus / COVID-19? No / Unsure 08/24/2021 2:02 PM ICT QUALITY ASSURANCE ENGINEER documented as of this encounter Functional [...] Description 04/03/2025 8:40 AM CDT Office Visit [facility] Medical Group Family & Internal Medicine [facility] [address] [place] [address] [place] [address] [place] [address] 08/26/2025 9:00 AM ICT QUALITY ASSURANCE ENGINEER Office Visit [facility] [address] [facility] [address] [facility] [address] [place] [address] Francisco Levi DO [address] [facility] [address] [place] [address] documented as of this encounter Visit Diagnoses Not on filedocumented in this encounter Additional Health Concerns Infection Onset Date Last Indicated Resolved Time COVID-19 Rule Out 12/02/2021 12/02/2021 12/02/2021 4:28 PM CDT COVID-19 Rule Out 05/20/2023 05/20/2023 05/20/2023 6:44 PM CDT COVID-19 Rule Out 09/11/2023 09/11/2023 09/11/2023 10:29 AM ICT QUALITY ASSURANCE ENGINEER COVID-19 Rule Out 03/18/2024 03/18/2024 03/18/2024 8:30 PM CDT COVID-19 Rule Out 05/27/2024 05/27/2024 05/27/2024 7:16 PM CDT Assessment Noted Time PHQ-9 Depression Total Score: 0 08/24/20 21 2:19 PM ICT QUALITY ASSURANCE ENGINEER documented as of this encounter Care Teams Director East Coast Sales Relationship Specialty [place] [address] [place] [address] PCP - General FAMILY PRACTICE 05/15/20 documented as of this encounter
--- OUTSIDE RECORDS SUMMARY | 2025-03-30 10:08 | XMS_ITS | Encounter Summary ---
Author Organization [facility] Address [address] [place] [address] Care Team Providers Care Resolution Analyst Name Role Phone Nestor Fletcher MD Primary Care Provider [phone] Encounter Details Date Type Department Care Team (Late st Contact Info) Description 04/28/2021 [employer] Message Enc [facility] Medical Group Family & Internal Medicine [address] [address] Nestor Fletcher MD [address] [place] [address] RE: Question Social History Tobacco Use [...] Sex Assigned at Female 10/30/2019 8:35 AM INSPECTOR RETURNED MATERIALS Legal Sex Female 10:55 PM CDT Gender Identity Female 10/30/2019 8:35 AM INSPECTOR RETURNED MATERIALS Sexual Orientation Straight 10/30/2019 8: 35 AM INSPECTOR RETURNED MATERIALS COVID-19 Exposure Response Date Recorded In the last month, have you been in contact with someone who was confirmed or suspected to have Coronavirus / COVID-19? No / Unsure 04/30/2021 10:14 AM CDT documented as of this encounter [...] Description 04/03/2025 8:40 AM CDT Office Visit [facility] Medical Group Family & Internal Medicine [facility] [address] [place] [address] Nestor Fletcher MD [address] [place] [address] 08/26/2025 9:00 AM INSPECTOR RETURNED MATERIALS Office Visit [facility] Medical Group Multispecialty Care - [facility] [address] [place] [address] Francisco Levi DO [address] [facility] [address] [place] [address] documented as of this encounter Visit Diagnoses Not on filedocumented in this encounter Additional Health Concerns Infection Onset Date Last Indicated Resolved Time COVID-19 Rule Out 12/02/2021 12/02/2021 12/02/2021 4:28 PM CDT COVID-19 Rule Out 05/20/2023 05/20/2023 05/20/2023 6:44 PM CDT COVID-19 Rule Out 09/11/2023 09/11/2023 09/11/2023 10:29 AM INSPECTOR RETURNED MATERIALS COVID-19 Rule Out 03/18/2024 03/18/2024 03/18/2024 8:30 PM CDT COVID-19 Rule Out 05/27/2024 05/27/2024 05/27/2024 7:16 PM CDT Assessment Noted Time PHQ-9 Depression Total Score: 0 03/30/20 21 11:05 AM CDT documented as of this encounter Care Teams Resolution Analyst Relationship Specialty [place] [address] [place] [address] PCP - General FAMILY PRACTICE 05/15/20 documented as of this encounter
--- OUTSIDE RECORDS SUMMARY | 2025-03-30 10:08 | XMS_ITS | Encounter Summary ---
Author Organization [facility] Address [address] [place] [address] Care Team Providers Care Top Collar Baster Name Role Phone Nestor Fletcher MD Primary Care Provider [phone] Encounter Details Date Type Department Care Team (Late st Contact Info) Description 09/18/2021 [employer] Message Enc [facility] Medical Group Family & Internal Medicine [facility] [address] [place] [address] Nestor Fletcher MD [address] [place] [address] Question regarding MRI CERV SPINE WO CON Social History Tobacco Use Types Packs/Day Years [...] Sex Assigned at Female 10/30/2019 8:35 AM CLOTH FINISHING RANGE OPERATOR Legal Sex Female 10:55 PM CDT Gender Identity Female 10/30/2019 8:35 AM CLOTH FINISHING RANGE OPERATOR Sexual Orientation Straight 10/30/2019 8: 35 AM CLOTH FINISHING RANGE OPERATOR COVID-19 Exposure Response Date Recorded In the last month, have you been in contact with someone who was confirmed or suspected to have Coronavirus / COVID-19? No / Unsure 08/24/2021 2:02 PM CLOTH FINISHING RANGE OPERATOR documented as of this encounter Functional [...] CDT Office Visit [facility] Medical [facility] Family & Internal Medicine [facility] [address] [place] [address] Nestor Fletcher MD [address] [place] [address] 08/26/2025 9:00 AM CLOTH FINISHING RANGE OPERATOR Office Visit [facility] - [facility] [address] [place] [address] Francisco Levi DO [address] [place] [address] documented as of this encounter Visit Diagnoses Not on filedocumented in this encounter Additional Health Concerns Infection Onset Date Last Indicated Resolved Time COVID-19 Rule Out 12/02/2021 12/02/2021 12/02/2021 4:28 PM CDT COVID-19 Rule Out 05/20/2023 05/20/2023 05/20/2023 6:44 PM CDT COVID-19 Rule Out 09/11/2023 09/11/2023 09/11/2023 10:29 AM CLOTH FINISHING RANGE OPERATOR COVID-19 Rule Out 03/18/2024 03/18/2024 03/18/2024 8:30 PM CDT COVID-19 Rule Out 05/27/2024 05/27/2024 05/27/2024 7:16 PM CDT Assessment Noted Time PHQ-9 Depression Total Score: 0 08/24/20 21 2:19 PM CLOTH FINISHING RANGE OPERATOR documented as of this encounter Care Teams Top Collar Baster Relationship Specialty [place] [address] [place] [address] PCP - General FAMILY PRACTICE 05/15/20 documented as of this encounter
--- OUTSIDE RECORDS SUMMARY | 2025-03-30 10:08 | XMS_ITS | Encounter Summary ---
Author Organization [facility] Address [address] [place] [address] Care Team Providers Care Architectural Design Lecturer Name Role Phone Nestor Fletcher MD Primary Care Provider [phone] Encounter Details Date Type Department Care Team (Late st Contact Info) Description 05/07/2021 [employer] Message Enc [facility] Medical Group Family & Internal Medicine [address] [address] Nestor Fletcher MD [address] [place] [address] RE: Question Social History Tobacco Use [...] Assigned at Female 10/30/2019 8:35 AM PROTECTION MGR Legal Sex Female 10:55 PM CDT Gender Identity Female 10/30/2019 8:35 AM PROTECTION MGR Sexual Orientation Straight 10/30/2019 8: 35 AM PROTECTION MGR COVID-19 Exposure Response Date Recorded In the [...] Description 04/03/2025 8:40 AM CDT Office Visit [facility] Medical Group Family & Internal Medicine [facility] [address] [place] [address] Nestor Fletcher MD [address] [place] [address] 08/26/2025 9:00 AM PROTECTION MGR Office Visit [facility] Medical Group Multispecialty Care - [facility] [address] [place] [address] Francisco Levi DO [address] [facility] [address] [place] [address] documented as of this encounter Visit Diagnoses Not on filedocumented in this encounter Additional Health Concerns Infection Onset Date Last Indicated Resolved Time COVID-19 Rule Out 12/02/2021 12/02/2021 12/02/2021 4:28 PM CDT COVID-19 Rule Out 05/20/2023 05/20/2023 05/20/2023 6:44 PM CDT COVID-19 Rule Out 09/11/2023 09/11/2023 09/11/2023 10:29 AM PROTECTION MGR COVID-19 Rule Out 03/18/2024 03/18/2024 03/18/2024 8:30 PM CDT COVID-19 Rule Out 05/27/2024 05/27/2024 05/27/2024 7:16 PM CDT Assessment Noted Time PHQ-9 Depression Total Score: 0 03/30/20 21 11:05 AM CDT documented as of this encounter Care Teams Architectural Design Lecturer Relationship Specialty [place] [address] [place] [address] PCP - General FAMILY PRACTICE 05/15/20 documented as of this encounter
--- OUTSIDE RECORDS SUMMARY | 2025-03-30 10:08 | XMS_ITS | Encounter Summary ---
Author Organization [facility] Address [address] [place] [address] Care Team Providers Care Cash Teller Name Role Phone Nestor Fletcher MD Primary Care Provider [phone] Encounter Details Date Type Department Care Team (Late st Contact Info) Description 07/13/2021 [employer] Message Enc [facility] Medical Group Family & Internal Medicine [address] [address] Nestor Fletcher MD [address] [place] [address] RE: Question Social History Tobacco Use [...] Sex Assigned at Female 10/30/2019 8:35 AM COMMERCIAL STRIPPER Legal Sex Female 10:55 PM CDT Gender Identity Female 10/30/2019 8:35 AM COMMERCIAL STRIPPER Sexual Orientation Straight 10/30/2019 8: 35 AM COMMERCIAL STRIPPER COVID-19 Exposure Response Date Recorded In [...] Description 04/03/2025 8:40 AM CDT Office Visit [facility] Medical [facility] Family & Internal Medicine [facility] [address] [place] [address] Nest[place] Fletcher [place] [address] [place] [address] 08/26/2025 9:00 AM COMMERCIAL STRIPPER Office Visit [facility] Multispecialty [facility] [address] [facility] [address] [place] [address] Francisco Levi DO [address] [facility] [address] [place] [address] documented as of this encounter Visit Diagnoses Not on filedocumented in this encounter Additional Health Concerns Infection Onset Date Last Indicated Resolved Time COVID-19 Rule Out 12/02/2021 12/02/2021 12/02/2021 4:28 PM CDT COVID-19 Rule Out 05/20/2023 05/20/2023 05/20/2023 6:44 PM CDT COVID-19 Rule Out 09/11/2023 09/11/2023 09/11/2023 10:29 AM COMMERCIAL STRIPPER COVID-19 Rule Out 03/18/2024 03/18/2024 03/18/2024 8:30 PM CDT COVID-19 Rule Out 05/27/2024 05/27/2024 05/27/2024 7:16 PM CDT Assessment Noted Time PHQ-9 Depression Total Score: 0 03/30/20 21 11:05 AM CDT documented as of this encounter Care Teams Cash Teller Relationship Specialty [place] [address] [place] [address] PCP - General FAMILY PRACTICE 05/15/20 documented as of this encounter
--- OUTSIDE RECORDS SUMMARY | 2025-03-30 10:08 | XMS_ITS | Encounter Summary ---
Author Organization [facility] Address [address] [place] [address] Care Team Providers Care Industrial Controls Technician Name Role Phone Nestor Fletcher MD Primary Care Provider [phone] Encounter Details Date Type Department Care Team (Late st Contact Info) Description 04/23/2021 [employer] Message Enc [facility] Medical Group Family & Internal Medicine [address] [address] Nestor Fletcher MD [address] [place] [address] RE: Question Social History Tobacco Use [...] Sex Assigned at Female 10/30/2019 8:35 AM TUNNEL MINER Legal Sex Female 10:55 PM CDT Gender Identity Female 10/30/2019 8:35 AM TUNNEL MINER Sexual Orientation Straight 10/30/2019 8: 35 AM TUNNEL MINER COVID-19 Exposure Response Date Recorded In the [...] Description 04/03/2025 8:40 AM CDT Office Visit [facility] Medical Group Family & Internal Medicine [facility] [address] [place] [address] Nestor Fletcher MD [address] [place] [address] 08/26/2025 9:00 AM TUNNEL MINER Office Visit [facility] Medical Group Multispecialty Care - [facility] [address] [place] [address] Francisco Levi DO [address] [facility] [address] [place] [address] documented as of this encounter Visit Diagnoses Not on filedocumented in this encounter Additional Health Concerns Infection Onset Date Last Indicated Resolved Time COVID-19 Rule Out 12/02/2021 12/02/2021 12/02/2021 4:28 PM CDT COVID-19 Rule Out 05/20/2023 05/20/2023 05/20/2023 6:44 PM CDT COVID-19 Rule Out 09/11/2023 09/11/2023 09/11/2023 10:29 AM TUNNEL MINER COVID-19 Rule Out 03/18/2024 03/18/2024 03/18/2024 8:30 PM CDT COVID-19 Rule Out 05/27/2024 05/27/2024 05/27/2024 7:16 PM CDT Assessment Noted Time PHQ-9 Depression Total Score: 0 03/30/20 21 11:05 AM CDT documented as of this encounter Care Teams Industrial Controls Technician Relationship Specialty [place] [address] [place] [address] PCP - General FAMILY PRACTICE 05/15/20 documented as of this encounter
--- OUTSIDE RECORDS SUMMARY | 2025-03-30 10:08 | XMS_ITS | Encounter Summary ---
Author Organization [facility] Address [address] [place] [address] Care Team Providers Care Cobbler Upper Name Role Phone Nestor Fletcher MD Primary Care Provider [phone] Encounter Details Date Type Department Care Team (Late st Contact Info) Description 05/14/2021 [employer] Message Enc [facility] Medical Group Family & Internal Medicine [address] [address] Nestor Fletcher MD [address] [place] [address] RE: Question Social History Tobacco Use [...] Sex Assigned at Female 10/30/2019 8:35 AM CHROME TANNER Legal Sex Female 10:55 PM CDT Gender Identity Female 10/30/2019 8:35 AM CHROME TANNER Sexual Orientation Straight 10/30/2019 8: 35 AM CHROME TANNER COVID-19 Exposure Response Date Recorded In the last month, have you been in contact with someone who was confirmed or suspected to have Coronavirus / COVID-19? Yes 05/17/2021 11:15 AM CDT documented as of this encounter [...] Office Visit [facility] Medical [facility] Family & Internal Medicine [facility] [address] [place] [address] [place] Fletcher [place] [address] [place] [address] 08/26/2025 9:00 AM CHROME TANNER Office Visit [facility] Multispecialty Care [facility] [address] [facility] [place] [address] Francisco Levi DO [address] [facility] [facility] [address] [place] [address] documented as of this encounter Visit Diagnoses Not on filedocumented in this encounter Additional Health Concerns Infection Onset Date Last Indicated Resolved Time COVID-19 Rule Out 12/02/2021 12/02/2021 12/02/2021 4:28 PM CDT COVID-19 Rule Out 05/20/2023 05/20/2023 05/20/2023 6:44 PM CDT COVID-19 Rule Out 09/11/2023 09/11/2023 09/11/2023 10:29 AM CHROME TANNER COVID-19 Rule Out 03/18/2024 03/18/2024 03/18/2024 8:30 PM CDT COVID-19 Rule Out 05/27/2024 05/27/2024 05/27/2024 7:16 PM CDT Assessment Noted Time PHQ-9 Depression Total Score: 0 03/30/20 21 11:05 AM CDT documented as of this encounter Care Teams Cobbler Upper Relationship Specialty [place] [address] [place] [address] PCP - General FAMILY PRACTICE 05/15/20 documented as of this encounter
--- OUTSIDE RECORDS SUMMARY | 2025-03-30 10:08 | XMS_ITS | Encounter Summary ---
Author Organization [facility] Address [address] [place] [address] Care Team Providers Care Directory Operator Name Role Phone Nestor Fletcher MD Primary Care Provider +1 [phone] Encounter Details Date Type Department Care Team (Late st Contact Info) Description 08/04/2021 Desmos Message Enc [facility] Medical Group Family & Internal Medicine [address] [address] [place] [id number] [place] [address] Insurance Social History Tobacco Use Types Packs/Day Years [...] Assigned at Female 10/30/2019 8:35 AM CLINICAL MEDICAL ASSISTANT Legal Sex Female 10:55 PM CDT Gender Identity Female 10/30/2019 8:35 AM CLINICAL MEDICAL ASSISTANT Sexual Orientation Straight 10/30/2019 8: 35 AM CLINICAL MEDICAL ASSISTANT COVID-19 Exposure Response Date Recorded In the last month, have you been in contact with someone who was confirmed or suspected to have Coronavirus / COVID-19? No / Unsure 08/05/2021 9:15 AM CLINICAL MEDICAL ASSISTANT documented as of this encounter Functional Status [...] documented in this encounter Progress Notes * Renu He - 08/04/2021 2:32 PM CST Ins has been updated. ICAL MEDICAL ASSISTANT documented in this encounter Plan of Treatment Upcoming Encounters Date Type Department Care Team (Late st Contact Info) Description 04/03/2025 8:40 AM CDT Office Visit [facility] Medical Group Family & Internal Medicine [facility] [address] [place] [address] [place] [address] [place] [address] 08/26/2025 9:00 AM CLINICAL MEDICAL ASSISTANT Office Visit [facility] Medical Group Multispecialty Care - [facility] [address] [place] [address] Francisco Levi DO [address] [place] [address] documented as of this encounter Visit Diagnoses Not on filedocumented in this encounter Additional Health Concerns Infection Onset Date Last Indicated Resolved Time COVID-19 Rule Out 12/02/2021 12/02/2021 12/02/2021 4:28 PM CDT COVID-19 Rule Out 05/20/2023 05/20/2023 05/20/2023 6:44 PM CDT COVID-19 Rule Out 09/11/2023 09/11/2023 09/11/2023 10:29 AM CLINICAL MEDICAL ASSISTANT COVID-19 Rule Out 03/18/2024 03/18/2024 03/18/2024 8:30 PM CDT COVID-19 Rule Out 05/27/2024 05/27/2024 05/27/2024 7:16 PM CDT Assessment Noted Time PHQ-9 Depression Total Score: 0 03/30/20 21 11:05 AM CDT documented as of this encounter Care Teams Directory Operator Relationship Specialty [place] [address] [facility] [address] PCP - General FAMILY PRACTICE 05/15/20 documented as of this encounter
--- OUTSIDE RECORDS SUMMARY | 2025-03-30 10:08 | XMS_ITS | Encounter Summary ---
Author Organization [facility] Address [address] [place] [address] Care Team Providers Care Cement Finishing Supervisor Name Role Phone Nestor Fletcher MD Primary Care Provider +1 [phone] Encounter Details Date Type Department Care Team (Late st Contact Info) Description 07/06/2021 [place] Message Enc [facility] Medical Group Family & Internal Medicine [address] [address] Nestor Fletcher MD [address] [place] [address] RE: Question Social History Tobacco Use [...] Sex Assigned at Female 10/30/2019 8:35 AM HAT TRIMMER Legal Sex Female 10:55 PM CDT Gender Identity Female 10/30/2019 8:35 AM HAT TRIMMER Sexual Orientation Straight 10/30/2019 8: 35 AM HAT TRIMMER COVID-19 Exposure Response Date Recorded In the [...] AM CDT Office Visit [facility] Medical [facility] Family & Internal Medicine [facility] [address] [place] [address] [place] Fletcher [place] [address] [place] [address] 08/26/2025 9:00 AM HAT TRIMMER Office Visit [facility] Multispecialty [facility] [address] [place] [address] Francisco Levi DO [address] [place] [address] documented as of this encounter Visit Diagnoses Not on filedocumented in this encounter Additional Health Concerns Infection Onset Date Last Indicated Resolved Time COVID-19 Rule Out 12/02/2021 12/02/2021 12/02/2021 4:28 PM CDT COVID-19 Rule Out 05/20/2023 05/20/2023 05/20/2023 6:44 PM CDT COVID-19 Rule Out 09/11/2023 09/11/2023 09/11/2023 10:29 AM HAT TRIMMER COVID-19 Rule Out 03/18/2024 03/18/2024 03/18/2024 8:30 PM CDT COVID-19 Rule Out 05/27/2024 05/27/2024 05/27/2024 7:16 PM CDT Assessment Noted Time PHQ-9 Depression Total Score: 0 03/30/20 21 11:05 AM CDT documented as of this encounter Care Teams Cement Finishing Supervisor Relationship Specialty [place] [address] [place] [address] PCP - General FAMILY PRACTICE 05/15/20 documented as of this encounter
--- OUTSIDE RECORDS SUMMARY | 2025-03-30 10:08 | XMS_ITS | Encounter Summary ---
Author Organization [facility] Address [address] [place] [address] Care Team Providers Care Principal Archaeologist Name Role Phone Nestor Fletcher MD Primary Care Provider +1 [phone] Encounter Details Date Type Department Care Team (Late st Contact Info) Description 05/24/2021 [employer] Message Enc [facility] Medical Group Family & Internal Medicine [address] [address] Nestor Fletcher MD [address] [place] [address] RE: Medication Questions Social History Tobacco [...] Sex Assigned at Female 10/30/2019 8:35 AM FISH STRAIGHTENER Legal Sex Female 10:55 PM CDT Gender Identity Female 10/30/2019 8:35 AM FISH STRAIGHTENER Sexual Orientation Straight 10/30/2019 8: 35 AM FISH STRAIGHTENER COVID-19 Exposure Response Date Recorded In the [...] COUNTY Medical Group Family & Internal Medicine [facility] [address] [place] [address] Nestor Fletcher MD [address] [place] [place] [address] 08/26/2025 9:00 AM FISH STRAIGHTENER Office Visit [facility] Medical Group Multispecialty Care - [facility] [address] [place] [address] Francisco Levi DO [address] [place] [address] documented as of this encounter Visit Diagnoses Not on filedocumented in this encounter Additional Health Concerns Infection Onset Date Last Indicated Resolved Time COVID-19 Rule Out 12/02/2021 12/02/2021 12/02/2021 4:28 PM CDT COVID-19 Rule Out 05/20/2023 05/20/2023 05/20/2023 6:44 PM CDT COVID-19 Rule Out 09/11/2023 09/11/2023 09/11/2023 10:29 AM FISH STRAIGHTENER COVID-19 Rule Out 03/18/2024 03/18/2024 03/18/2024 8:30 PM CDT COVID-19 Rule Out 05/27/2024 05/27/2024 05/27/2024 7:16 PM CDT Assessment Noted Time PHQ-9 Depression Total Score: 0 03/30/20 21 11:05 AM CDT documented as of this encounter Care Teams Principal Archaeologist Relationship Specialty [place] [address] [place] [address] PCP - General FAMILY PRACTICE 05/15/20 documented as of this encounter
--- OUTSIDE RECORDS SUMMARY | 2025-03-30 10:08 | XMS_ITS | Encounter Summary ---
Author Organization [facility] Address [address] [place] [address] Care Team Providers Care Office Clinician Name Role Phone Nestor Fletcher MD Primary Care Provider +1 [phone] Encounter Details Date Type Department Care Team (Late st Contact Info) Description 07/03/2024 Modbook Message Enc [facility] Medical Group Family & Internal Medicine [address] [address] Nestor Fletcher MD [address] [place] [address] Antibiotics Social History Tobacco Use Types Packs/Day Years [...] Sex Assigned at Female 10/30/2019 8:35 AM VP MARKETING SERVICES AND SKIN Legal Sex Female 10:55 PM CDT Gender Identity Female 10/30/2019 8:35 AM VP MARKETING SERVICES AND SKIN Sexual Orientation Straight 10/30/2019 8: 35 AM VP MARKETING SERVICES AND SKIN documented as of this encounter Functional Status [...] Visit [facility] Medical Group Family & Internal Medicine - [place] [address] [place] [address] Nestor Fletcher MD [address] [place] [address] 08/26/2025 9:00 AM VP MARKETING SERVICES AND SKIN Office Visit [facility] Mult[facility]ialty Care - [facility] [address] [facility] [place] [address] Francisco Levi DO [address] [facility] [address] [place] [address] documented as of this encounter Goals Goal [...] as of this encounter Care Teams Office Clinician Relationship Specialty [place] [address] [place] [address] PCP - General FAMILY PRACTICE 05/15/20 documented as of this encounter
--- OUTSIDE RECORDS SUMMARY | 2025-03-30 10:09 | XMS_ITS | Encounter Summary ---
Author Organization [facility] Address [address] [place] [address] Care Team Providers Care Sheet Metal Engineer Name Role Phone Nestor Fletcher MD Primary Care Provider +1 [phone] Encounter Details Date Type Department Care Team (Late st Contact Info) Description 11/23/2023 [employer]Tech[employer] Message Enc [facility] Medical Group Family & Internal Medicine [address] [address] Nestor Fletcher MD [address] [place] [address] Sudden pain Social History Tobacco Use Types Packs/Day [...] Assigned at Female 10/30/2019 8:35 AM CLINICAL PROGRAMMER Legal Sex Female 10:55 PM CDT Gender Identity Female 10/30/2019 8:35 AM CLINICAL PROGRAMMER Sexual Orientation Straight 10/30/2019 8: 35 AM CLINICAL PROGRAMMER documented as of this encounter Functional Status [...] [facility] Center Family & Internal Medicine - [address] [address] Nestor Fletcher MD [address] [place] [address] 08/26/2025 9:00 AM CLINICAL PROGRAMMER Office Visit [facility] Mult[facility]pecialty Care - [facility] [address] [facility] [place] [address] Francisco Levi DO [address] [facility] [address] [place] [address] documented as of this encounter Goals Goal [...] documented as of this encounter Care Teams Sheet Metal Engineer Relationship Specialty [place] [address] [place] [address] PCP - General FAMILY PRACTICE 05/15/20 documented as of this encounter
--- OUTSIDE RECORDS SUMMARY | 2025-03-30 10:09 | XMS_ITS | Encounter Summary ---
Author Organization [facility] Address [address] [place] [address] Care Team Providers Care Debone Processing Supervisor Name Role Phone Nestor Fletcher MD Primary Care Provider +1 [phone] Encounter Details Date Type Department Care Team (Late st Contact Info) Description 12/26/2023 Zipdial Message Enc [facility] Medical Group Family & Internal Medicine [address] [address] Nestor Fletcher MD [address] [place] [address] Nausea Social History Tobacco Use Types Packs/Day Years [...] Sex Assigned at Female 10/30/2019 8:35 AM CASE BRIEFER Legal Sex Female 10:55 PM CDT Gender Identity Female 10/30/2019 8:35 AM CASE BRIEFER Sexual Orientation Straight 10/30/2019 8: 35 AM CASE BRIEFER documented as of this encounter Functional Status [...] [facility] Family & Internal Medicine - [address] [address] Nestor Fletcher MD [address] [place] [address] 08/26/2025 9:00 AM CASE BRIEFER Office Visit [facility] Multispecialty Care - [facility] [address] [facility] [place] [address] Francisco Levi DO [address] [facility] [address] [place] [address] documented as of this encounter Goals Goal [...] documented as of this encounter Care Teams Debone Processing Supervisor Relationship Specialty [place] [address] [facility] [address] PCP - General FAMILY PRACTICE 05/15/20 documented as of this encounter
--- OUTSIDE RECORDS SUMMARY | 2025-03-30 10:09 | XMS_ITS | Encounter Summary ---
Author Organization [facility] Address [address] [place] [address] Care Team Providers Care Lace Tearing Supervisor Name Role Phone Nestor Fletcher MD Primary Care Provider +1 [phone] Encounter Details Date Type Department Care Team (Late st Contact Info) Description 01/06/2024 Fiestah Message Enc [facility] Medical Group Family & Internal Medicine [facility] [address] [place] [address] [place] Fletcher [place] [address] [place] [address] Imaging. Social History Tobacco Use Types Packs/Day Years [...] Sex Assigned at Female 10/30/2019 8:35 AM PHOTOGRAPHIC PROCESS SCREEN MAKER Legal Sex Female 10:55 PM CDT Gender Identity Female 10/30/2019 8:35 AM PHOTOGRAPHIC PROCESS SCREEN MAKER Sexual Orientation Straight 10/30/2019 8: 35 AM PHOTOGRAPHIC PROCESS SCREEN MAKER documented as of this encounter Functional [...] Status No 06/06/2022 12:00 PM CDT Georgia Loevll RN Active * Because of a physical, [...] Description 04/03/2025 8:40 AM CDT Office Visit [facility] Family & Internal Medicine - [address] [address] Nestor Fletcher MD [address] [place] [address] 08/26/2025 9:00 AM PHOTOGRAPHIC PROCESS SCREEN MAKER Office Visit [facility] Multispecialty Care - [facility] [address] [facility] [place] [address] Francisco Levi DO [address] [facility] [address] [place] [address] documented as of this encounter Goals Goal [...] documented as of this encounter Care Teams Lace Tearing Supervisor Relationship Specialty [place] [address] [place] [address] PCP - General FAMILY PRACTICE 05/15/20 documented as of this encounter
--- OUTSIDE RECORDS SUMMARY | 2025-03-30 10:09 | XMS_ITS | Encounter Summary ---
Author Organization [facility] Address [address] [place] [address] Care Team Providers Care Shipping Manager Name Role Phone Nestor Fletcher MD Primary Care Provider +1 [phone] Encounter Details Date Type Department Care Team (Late st Contact Info) Description 04/05/2024 [employer] Message Enc [facility] Medical Group Family & Internal Medicine [address] [address] Nestor Fletcher MD [address] [place] [address] Galliano Social History Tobacco Use Types Packs/Day Years [...] Sex Assigned at Female 10/30/2019 8:35 AM RADIATION PHYSICIST Legal Sex Female 10:55 PM CDT Gender Identity Female 10/30/2019 8:35 AM RADIATION PHYSICIST Sexual Orientation Straight 10/30/2019 8: 35 AM RADIATION PHYSICIST documented as of this encounter Functional Status [...] Description 04/03/2025 8:40 AM CDT Office Visit [facility] Medical Group Family & Internal Medicine - [address] [address] Nestor Fletcher MD [address] [place] [address] 08/26/2025 9:00 AM RADIATION PHYSICIST Office Visit [facility] Multispecialty Care - [address] [place] [address] Francisco Levi DO [address] [facility] [address] [place] [address] documented as of this encounter Goals Goal Patient Goal Type Associated Problems Recent Progress Patient-Stated? Author Health - patient able to perform ADLs independently Lifestyle No Koerkenme i er, Kareem Camacho RN documented as of this encounter Visit Diagnoses Not on filedocumented in this encounter Additional Health Concerns Infection Onset Date Last Indicated Resolved Time COVID-19 Rule Out 05/27/2024 05/27/2024 05/27/2024 7:16 PM CDT Assessment Noted Time PHQ-9 Depression Total Score: 0 02/26/20 22 9:40 AM CDT documented as of this encounter Care Teams Shipping Manager Relationship Specialty [place] [address] [place] [address] PCP - General FAMILY PRACTICE 05/15/20 documented as of this encounter
--- OUTSIDE RECORDS SUMMARY | 2025-03-30 10:09 | XMS_ITS | Encounter Summary ---
Author Organization [facility] Address [address] [place] [address] Care Team Providers Care Broom Machine Operator Name Role Phone Nestor Fletcher MD Primary Care Provider +1- [phone] Encounter Details Date Type Department Care Team (Late st Contact Info) Description 04/16/2024 [employer] Message Enc [facility] Medical Group Family & Internal Medicine [address] [address] Nestor Fletcher MD [address] [place] [address] Upper endoscopy Social History Tobacco Use Types Packs/Day Years [...] Sex Assigned at Female 10/30/2019 8:35 AM GOLF CLUB MAKER Legal Sex Female 10:55 PM CDT Gender Identity Female 10/30/2019 8:35 AM GOLF CLUB MAKER Sexual Orientation Straight 10/30/2019 8: 35 AM GOLF CLUB MAKER documented as of this encounter Functional [...] Author Status No 06/06/2022 12:00 PM CDT eGorgia Lovell RN Active documented in this encounter Progress Notes * Marina Archer RN - 04/16/2024 9:53 AM CDT . * Marina Archer RN - 04/16/2024 7:50 AM CDT Please advise and call pt to get her scheduled an apt. Thanks! documented in this encounter Plan of Treatment Upcoming Encounters Date Type Department Care Team (Late st Contact Info) Description 04/03/2025 8:40 AM CDT Office Visit [facility] Medical Group Family & Internal Medicine [address] [address] [place] [address] [place] [address] 08/26/2025 9:00 AM GOLF CLUB MAKER Office Visit [facility] Medical Group Multispecialty Care - [facility] [address] [place] [address] Francisco Levi, [address] [facility] [facility] [address] [place] [address] documented as of this encounter Goals Goal [...] documented as of this encounter Care Teams Broom Machine Operator Relationship Specialty [place] [address] [place] [address] PCP - General FAMILY PRACTICE 05/15/20 documented as of this encounter
--- OUTSIDE RECORDS SUMMARY | 2025-03-30 10:09 | XMS_ITS | Encounter Summary ---
Author Organization [facility] Address [address] [place] [address] Care Team Providers Care Dining Chair Seat Cushion Trimmer Name Role Phone Nestor Fletcher MD Primary Care Provider +1 [phone] Encounter Details Date Type Department Care Team (Late st Contact Info) Description 12/18/2023 [employer] Message Enc [facility] Medical Group Family & Internal Medicine [address] [address] Nestor Fletcher MD [address] [place] [address] Appt cancellation Social History Tobacco Use Types Packs/Day Years [...] Sex Assigned at Female 10/30/2019 8:35 AM GAMING HOST Legal Sex Female 10:55 PM CDT Gender Identity Female 10/30/2019 8:35 AM GAMING HOST Sexual Orientation Straight 10/30/2019 8: 35 AM GAMING HOST documented as of this encounter Functional Status [...] Visit [facility] Family & Internal Medicine - [address] [address] Nestor Fletcher MD [address] [place] [address] 08/26/2025 9:00 AM GAMING HOST Office Visit [facility] Multispecialty Care - [facility] [address] [facility] [place] [address] Francisco Levi DO [address] [facility] [address] [place] [address] documented as of this encounter Goals Goal [...] documented as of this encounter Care Teams Dining Chair Seat Cushion Trimmer Relationship Specialty [place] [address] [place] [address] PCP - General FAMILY PRACTICE 05/15/20 documented as of this encounter
--- OUTSIDE RECORDS SUMMARY | 2025-03-30 10:09 | XMS_ITS | Encounter Summary ---
Author Organization [facility] Address [address] [place] [address] Care Team Providers Care Bonderite Operator Name Role Phone Nestor Fletcher MD Primary Care Provider +1- [phone] Encounter Details Date Type Department Care Team (Late st Contact Info) Description 02/18/2024 [employer] Message Enc [facility] Medical Group Family & Internal Medicine [address] [address] Nestor Fletcher MD [address] [place] [address] Prozac Social History Tobacco Use Types Packs/Day Years [...] Assigned at Female 10/30/2019 8:35 AM RN PRIOR AUTHORIZATION Legal Sex Female 10:55 PM CDT Gender Identity Female 10/30/2019 8:35 AM RN PRIOR AUTHORIZATION Sexual Orientation Straight 10/30/2019 8: 35 AM RN PRIOR AUTHORIZATION documented as of this encounter Functional Status [...] Progress Notes * Marina Archer RN - 02/19/2024 8:03 AM CDT Printed for Dr zamora advisnoemy. documented in this encounter Plan of Treatment Upcoming Encounters Date Type Department Care Team (Late st Contact Info) Description 04/03/2025 8:40 AM CDT Office Visit [facility] Family & Internal Medicine [facility] [address] [place] [address] Nest[place] Fletcher [place] [address] [place] [address] 08/26/2025 9:00 AM RN PRIOR AUTHORIZATION Office Visit [facility] Mult[facility]ialty Care - [facility] [address] [place] [address] Francisco Levi, [address] [place] [address] documented as of this encounter Goals Goal [...] documented as of this encounter Care Teams Bonderite Operator Relationship Specialty [place] [address] [place] [address] PCP - General FAMILY PRACTICE 05/15/20 documented as of this encounter
--- OUTSIDE RECORDS SUMMARY | 2025-03-30 10:09 | XMS_ITS | Encounter Summary ---
Author Organization [facility] Address [address] [place] [address] Care Team Providers Care Lathe Machinist Name Role Phone Nestor Fletcher MD Primary Care Provider +1- [phone] Encounter Details Date Type Department Care Team (Late st Contact Info) Description 05/26/2024 [employer] Message Enc [facility] Medical Group Family & Internal Medicine [address] [address] Nestor Fletcher MD [address] [place] [address] Vaccination Social History Tobacco Use Types Packs/Day Years [...] Sex Assigned at Female 10/30/2019 8:35 AM WELL CONTROL INSTRUCTOR Legal Sex Female 10:55 PM CDT Gender Identity Female 10/30/2019 8:35 AM WELL CONTROL INSTRUCTOR Sexual Orientation Straight 10/30/2019 8: 35 AM WELL CONTROL INSTRUCTOR documented as of this encounter Functional Status [...] of Assessment Author Status No Risk Indicated 05/27/2024 6:19 PM CINTHYAT Jenn Snyder RN Active * [place] Suicide Severity Rating Scale (Screener/Recent Self-Report) Question Answer Date of Assessment Author Status 1. Wish to be (Past 1 Month) No 05/27/2024 6:19 PM CINTHYAT Jenn Snyder RN Activ e 2. Non-Specific Active Suicidal Thoughts (Past 1 Month) No 05/27/2024 6:19 PM CINTHYAT Jenn Snyder RN Activ e 6. Suicidal Behavior (Lifetime) No 05/27/2024 6:19 PM CINTHYAT Jenn Snyder RN Activ e documented as of this [...] [facility] Family & Internal Medicine [facility] [address] [place] [address] [place] [address] [place] [address] 08/26/2025 9:00 AM WELL CONTROL INSTRUCTOR Office Visit [facility] Multispecialty Care - [facility] [address] [place] [address] Francisco Levi DO [address] [facility] [address] [place] [address] documented as of this encounter Goals Goal [...] documented as of this encounter Care Teams Lathe Machinist Relationship Specialty [place] [address] [place] [address] PCP - General FAMILY PRACTICE 05/15/20 documented as of this encounter
--- OUTSIDE RECORDS SUMMARY | 2025-03-30 10:09 | XMS_ITS | Encounter Summary ---
Author Organization [facility] Address [address] [place] [address] Care Team Providers Care Client Solutions Manager Name Role Phone Nestor Fletcher MD Primary Care Provider +1 [phone] Encounter Details Date Type Department Care Team (Late st Contact Info) Description 02/12/2024 Yo que Vos Message Enc [facility] Medical Group Family & Internal Medicine [address] [address] Nestor Fletcher MD [address] [place] [address] [place] Social History Tobacco Use Types Packs/Day Years [...] Sex Assigned at Female 10/30/2019 8:35 AM ASH CONVEYOR OPERATOR Legal Sex Female 10:55 PM CDT Gender Identity Female 10/30/2019 8:35 AM ASH CONVEYOR OPERATOR Sexual Orientation Straight 10/30/2019 8: 35 AM ASH CONVEYOR OPERATOR documented as of this encounter Functional [...] Medical Group Family & Internal Medicine - [address] [address] Nestor Fletcher MD [address] [place] [address] 08/26/2025 9:00 AM ASH CONVEYOR OPERATOR Office Visit [facility] Multispecialty Care - [address] [place] [address] Francisco Levi DO 3 [facility] [address] [place] [address] documented as of this encounter Goals Goal [...] documented as of this encounter Care Teams Client Solutions Manager Relationship Specialty [place] [address] [place] [address] PCP - General FAMILY PRACTICE 05/15/20 documented as of this encounter
--- OUTSIDE RECORDS SUMMARY | 2025-03-30 10:09 | XMS_ITS | Encounter Summary ---
Author Organization [facility] Address [address] [place] [address] Care Team Providers Care Kayak Maker Name Role Phone Nestor Fletcher MD Primary Care Provider [phone] Encounter Details Date Type Department Care Team (Late st Contact Info) Description 11/19/2023 Ostara Message Enc [facility] [place] [phone] [id number] Eleanor Elise MD [facility] [address] [place] [address] Spinal cord stimulator psych eval Social History Tobacco Use Types Packs/Day Years [...] Sex Assigned at Female 10/30/2019 8:35 AM SERVICE PROVIDER Legal Sex Female 10:55 PM CDT Gender Identity Female 10/30/2019 8:35 AM SERVICE PROVIDER Sexual Orientation Straight 10/30/2019 8: 35 AM SERVICE PROVIDER documented as of this encounter Functional Status [...] Office Visit [facility] Medical Group Family & Internal Medicine [facility] [address] [place] [address] Nestor Fletcher MD [address] [place] [address] 08/26/2025 9:00 AM SERVICE PROVIDER Office Visit [facility] Multispecialty Care - [address], [address] [place] [address] Francisco Levi DO 3 [facility] [address] [place] [address] documented as of this encounter Goals Goal [...] documented as of this encounter Care Teams Kayak Maker Relationship Specialty [place] [address] [place] [address] PCP - General FAMILY PRACTICE 05/15/20 documented as of this encounter
--- OUTSIDE RECORDS SUMMARY | 2025-03-30 10:09 | XMS_ITS | Encounter Summary ---
Author Organization [facility] Address [address] [place] [address] Care Team Providers Care Truck Farmer Name Role Phone Nestor Fletcher MD Primary Care Provider [phone] Encounter Details Date Type Department Care Team (Late st Contact Info) Description 01/12/2024 [employer] Message Enc [facility] Medical Group Family & Internal Medicine [address] [address] Nestor Fletcher MD [address] [place] [address] Tests Social History Tobacco Use Types Packs/Day Years [...] Sex Assigned at Female 10/30/2019 8:35 AM TIMBER SKIDDER Legal Sex Female 10:55 PM CDT Gender Identity Female 10/30/2019 8:35 AM TIMBER SKIDDER Sexual Orientation Straight 10/30/2019 8: 35 AM TIMBER SKIDDER documented as of this encounter Functional Status [...] [facility] - [address] [address] Nestor Fletcher MD [address] [place] [address] 08/26/2025 9:00 AM TIMBER SKIDDER Office Visit [facility] Multispecialty Care - [facility] 3 [facility] [address] [place] [address] Francisco Levi DO 3 [facility] [address] [place] [address] documented as of this encounter Goals Goal [...] as of this encounter Care Teams Truck Farmer Relationship Specialty [place] [address] [facility] [place] [address] PCP - General FAMILY PRACTICE 05/15/20 documented as of this encounter
--- OUTSIDE RECORDS SUMMARY | 2025-03-30 10:09 | XMS_ITS | Encounter Summary ---
Author Organization [facility] Address [address] [place] [address] Care Team Providers Care Loan Review Analyst Name Role Phone Nestor Fletcher MD Primary Care Provider [phone] Encounter Details Date Type Department Care Team (Late st Contact Info) Description 11/13/2023 Your Truman Show Message Enc [facility] Medical Group Family & Internal Medicine [address] [address] Nestor Fletcher MD [address] [place] [address] Sleep Social History Tobacco Use Types [...] Sex Assigned at Female 10/30/2019 8:35 AM SPORT PSYCHOLOGIST Legal Sex Female 10:55 PM CDT Gender Identity Female 10/30/2019 8:35 AM SPORT PSYCHOLOGIST Sexual Orientation Straight 10/30/2019 8: 35 AM SPORT PSYCHOLOGIST documented as of this encounter Functional Status [...] [facility] - [address] [address] Nestor Fletcher MD [address] [place] [address] 08/26/2025 9:00 AM SPORT PSYCHOLOGIST Office Visit [facility] Multispecialty Care - [facility] 3 [facility] [address] [place] [address] Francisco Levi DO 3 [facility] [address] [place] [address] documented as of this encounter Goals Goal [...] documented as of this encounter Care Teams Loan Review Analyst Relationship Specialty [place] [address] [facility] [place] [address] PCP - General FAMILY PRACTICE 05/15/20 documented as of this encounter
--- OUTSIDE RECORDS SUMMARY | 2025-03-30 10:09 | XMS_ITS | Encounter Summary ---
Author Organization [facility] Address [address] [place] [address] Care Team Providers Care Tnt Powder Worker Name Role Phone Nestor Fletcher MD Primary Care Provider +[phone] Encounter Details Date Type Department Care Team (Late st Contact Info) Description 02/19/2024 Symtavision Message Enc [facility] Medical Group Family & Internal Medicine [address] [address] Nestor Fletcher MD [address] [place] [address] Prozac Social History Tobacco Use Types [...] Sex Assigned at Female 10/30/2019 8:35 AM AIR TRANSPORTATION PROVIDER Legal Sex Female 10:55 PM CDT Gender Identity Female 10/30/2019 8:35 AM AIR TRANSPORTATION PROVIDER Sexual Orientation Straight 10/30/2019 8: 35 AM AIR TRANSPORTATION PROVIDER documented as of this encounter Functional [...] Medical Group Family & Internal Medicine - [place] [address] [place] [address] Nestor Fletcher MD [address] [place] [address] 08/26/2025 9:00 AM AIR TRANSPORTATION PROVIDER Office Visit [facility] Multispecialty Care - [facility] 3 [facility] [address] [place] [address] Francisco Levi DO 3 [facility] [address] [place] [address] documented as of this encounter Goals Goal [...] documented as of this encounter Care Teams Tnt Powder Worker Relationship Specialty [place] [address] [place] [address] PCP - General FAMILY PRACTICE 05/15/20 documented as of this encounter
--- OUTSIDE RECORDS SUMMARY | 2025-03-30 10:09 | XMS_ITS | Encounter Summary ---
Author Organization [facility] Address [address] [place] [address] Care Team Providers Care Apprentice Painter Neckties Name Role Phone Nestor Fletcher MD Primary Care Provider [phone] Encounter Details Date Type Department Care Team (Late st Contact Info) Description 12/26/2023 Terrajoulet Message Enc [facility] Medical Group Multispecialty Care - [facility] 3 [facility], [address] [place] [phone] Eusebio Ron MD 3 [place] [address] Update Social History Tobacco Use Types Packs/Day [...] Sex Assigned at Female 10/30/2019 8:35 AM CIRCULAR KNITTER HELPER Legal Sex Female 10:55 PM CDT Gender Identity Female 10/30/2019 8:35 AM CIRCULAR KNITTER HELPER Sexual Orientation Straight 10/30/2019 8: 35 AM CIRCULAR KNITTER HELPER documented as of this encounter Functional [...] Center Family & Internal [facility] [address] [place] [address] Nestor Fletcher MD [address] [place] [id number] 08/26/2025 9:00 AM CIRCULAR KNITTER HELPER Office Visit [facility] Multispecialty Care - [address], [address] [place] [address] Francisco Levi DO 3 [facility] [address] [place] [address] documented as of this encounter Goals Goal [...] documented as of this encounter Care Teams Apprentice Painter Neckties Relationship Specialty [place] [address] [place] [address] PCP - General FAMILY PRACTICE 05/15/20 documented as of this encounter
--- OUTSIDE RECORDS SUMMARY | 2025-03-30 10:09 | XMS_ITS | Encounter Summary ---
Author Organization [facility] Address [address] [place] [address] Care Team Providers Care Student Liaison Officer Name Role Phone Nestor Fletcher MD Primary Care Provider +[phone] Encounter Details Date Type Department Care Team (Late st Contact Info) Description 02/03/2024 N[employer]ious Nut [employer] Message Enc [facility] Medical Group Family & Internal Medicine [address] [address] Nestor Fletcher MD [address] [place] [address] Antibiotics Social History Tobacco Use Types [...] Sex Assigned at Female 10/30/2019 8:35 AM SCREW EYE ASSEMBLER Legal Sex Female 10:55 PM CDT Gender Identity Female 10/30/2019 8:35 AM SCREW EYE ASSEMBLER Sexual Orientation Straight 10/30/2019 8: 35 AM SCREW EYE ASSEMBLER documented as of this encounter Functional Status [...] AM CDT Office Visit [facility] Medical Group Family & Internal Medicine - [place] [address] [place] [address] Nestor Fletcher MD [address] [place] [address] 08/26/2025 9:00 AM SCREW EYE ASSEMBLER Office Visit [facility] Multispecialty Care - [facility] 3 [facility] [address] [place] [address] Francisco Levi DO 3 [facility] [address] [place] [address] documented as of this encounter Goals Goal [...] as of this encounter Care Teams Student Liaison Officer Relationship Specialty [place] [address] [place] [address] PCP - General FAMILY PRACTICE 05/15/20 documented as of this encounter
--- OUTSIDE RECORDS SUMMARY | 2025-03-30 10:09 | XMS_ITS | Encounter Summary ---
Author Organization [facility] Address [address] [place] [address] Care Team Providers Care Follow Up Clerk Name Role Phone Nestor Fletcher MD Primary Care Provider [phone] Encounter Details Date Type Department Care Team (Late st Contact Info) Description 04/24/[address] [facility] Medical Group Family & Internal Medicine [address] [address] Nestor Fletcher MD [address] [place] [address] Stomach Social History Tobacco Use Types Packs/Day Years [...] Sex Assigned at Female 10/30/2019 8:35 AM MAINFRAME DEVELOPER Legal Sex Female 10:55 PM CDT Gender Identity Female 10/30/2019 8:35 AM MAINFRAME DEVELOPER Sexual Orientation Straight 10/30/2019 8: 35 AM MAINFRAME DEVELOPER documented as of this encounter Functional [...] documented in this encounter Progress Notes * Jaida Hale MA - 04/25/2024 8:55 AM CDT Printed for dr diaz documented in this encounter Plan of Treatment Upcoming Encounters Date Type Department Care Team (Late st Contact Info) Description 04/03/2025 8:40 AM CDT Office Visit [facility] Family & Internal Medicine [facility] [address] [place] [address] [place] Fletcher [place] [address] [place] [id number] 08/26/2025 9:00 AM MAINFRAME DEVELOPER Office Visit [facility] Multispecialty Care - [facility] [address] [place] [address] Francisco Levi DO [address] [facility] [address] [place] [address] documented as of this encounter Goals Goal [...] documented as of this encounter Care Teams Follow Up Clerk Relationship Specialty [place] [address] [place] [address] PCP - General FAMILY PRACTICE 05/15/20 documented as of this encounter
--- OUTSIDE RECORDS SUMMARY | 2025-03-30 10:09 | XMS_ITS | Encounter Summary ---
Author Organization [facility] Address [facility] [place] [address] Care Team Providers Care Dough Mixer Operator Name Role Phone Tutu Hill MD Primary Care Provider + FolsomAry NP Primary Care Provider + None, Provider Primary Care Provider Nestor Ma MD Primary Care Provider [phone] Encounter Details Date Type Department Care Team (Late st Contact Info) Description 04/03/2013 Abstract [facility] Conversion , Generic ConversionMD Social History Tobacco Use Types Packs/Day Years Used Date Smoking Tobacco: Never Assessed Comments Unknown Sex and Gender Information Value Date Recorded Sex Assigned at Female 10/30/2019 8:35 AM JEWELRY APPRAISER Legal Sex Female 10:55 PM CDT Gender Identity Female 10/30/2019 8:35 AM JEWELRY APPRAISER Sexual Orientation Straight 10/30/2019 8: 35 AM JEWELRY APPRAISER documented as of this encounter Plan of Treatment Upcoming Encounters Date Type Department Care Team (Late st Contact Info) Description 04/03/2025 8:40 AM CDT Office Visit [facility] Medical Group Family & Internal Medicine [address] [address] Nestor Fletcher MD [address] [place] [address] 08/26/2025 9:00 AM JEWELRY APPRAISER Office Visit [facility] Multispecialty Care - [place] [address] [facility] [place] [address] Francisco Levi DO [address] [place] [address] documented as of this encounter Visit Diagnoses [...] Rule Out 07/06/2020 07/06/2020 07/08/2020 11:00 PM JEWELRY APPRAISER COVID-19 Rule Out 07/09/2020 07/09/2020 07/12/2020 10:16 AM JEWELRY APPRAISER COVID-19 Rule Out 11/14/2020 11/14/2020 11/15/2020 10:25 AM CDT COVID-19 Rule Out 01/05/2021 01/05/2021 01/05/2021 5:26 PM CDT COVID-19 Rule Out 12/02/2021 12/02/2021 12/02/2021 4:28 PM CDT COVID-19 Rule Out 05/20/2023 05/20/2023 05/20/2023 6:44 PM CDT COVID-19 Rule Out 09/11/2023 09/11/2023 09/11/2023 10:29 AM JEWELRY APPRAISER COVID-19 Rule Out 03/18/2024 03/18/2024 03/18/2024 8:30 PM CDT COVID-19 Rule Out 05/27/2024 05/27/2024 05/27/2024 7:16 PM CDT documented as of this encounter Care Teams Dough Mixer Operator Relationship Specialty Start Date End Date Tutu Hill MD [address] [facility] [address] [place] [address] PCP - General FAMILY PRACTICE 08/09/18 03/19/20 Ary Rubalcava NP [address] [facility] [[email or web address] [address] [place] [address] PCP - General Nurse Practitioner Family 03/20/20 709/23 None, MD Santana PCP - General 03/25/20 05/14/20 [place] [address] [facility] [place] [address] PCP - General FAMILY PRACTICE 05/15/20 documented as of this encounter
--- OUTSIDE RECORDS SUMMARY | 2025-03-30 10:09 | XMS_ITS | Encounter Summary ---
Author Organization [facility] Address [address] [place] [address] Care Team Providers Care Technical Operations Vice President Name Role Phone Nestor Fletcher MD Primary Care Provider [phone] Encounter Details Date Type Department Care Team (Late st Contact Info) Description 01/18/2024 [employer] Message Enc [facility] Medical Group Family & Internal Medicine [address] [address] Nestor Fletcher MD [address] [place] [address] Lumbar xray Social History Tobacco Use Types Packs/Day Years [...] Sex Assigned at Female 10/30/2019 8:35 AM CHILD PROTECTION SPECIALIST Legal Sex Female 10:55 PM CDT Gender Identity Female 10/30/2019 8:35 AM CHILD PROTECTION SPECIALIST Sexual Orientation Straight 10/30/2019 8: 35 AM CHILD PROTECTION SPECIALIST documented as of this encounter Functional [...] Medical Group Family & Internal Medicine - [place] [address] [place] [address] Nestor Fletcher MD [address] [place] [address] 08/26/2025 9:00 AM CHILD PROTECTION SPECIALIST Office Visit [facility] Multispecialty Care - [facility] 3 [facility] [address] [place] [address] Francisco Levi DO 3 [facility] [address] [place] [address] documented as of this encounter Goals Goal [...] as of this encounter Care Teams Technical Operations Vice President Relationship Specialty [place] [address] [place] [address] PCP - General FAMILY PRACTICE 05/15/20 documented as of this encounter
--- OUTSIDE RECORDS SUMMARY | 2025-03-30 10:09 | XMS_ITS | Encounter Summary ---
Author Organization [facility] Address [address] [place] [address] Care Team Providers Care Retrieval Specialist Name Role Phone Nestor Fletcher MD Primary Care Provider +[phone] Encounter Details Date Type Department Care Team (Late st Contact Info) Description 04/11/2024 Bot[employer] Message Enc [facility] Medical Group Family & Internal Medicine [address] [address] Nestor Fletcher MD [address] [place] [address] Flare Social History Tobacco Use Types Packs/Day Years [...] Sex Assigned at Female 10/30/2019 8:35 AM SPEEDER WORKER Legal Sex Female 10:55 PM CDT Gender Identity Female 10/30/2019 8:35 AM SPEEDER WORKER Sexual Orientation Straight 10/30/2019 8: 35 AM SPEEDER WORKER documented as of this encounter Functional [...] Medical Group Family & Internal Medicine - [place] [address] [place] [address] Nestor Fletcher MD [address] [place] [address] 08/26/2025 9:00 AM SPEEDER WORKER Office Visit [facility] Multispecialty Care - [facility] 3 [facility] [address] [place] [address] Francisco Levi DO 3 [facility] [address] [place] [address] documented as of this encounter Goals Goal [...] documented as of this encounter Care Teams Retrieval Specialist Relationship Specialty [place] [address] [place] [address] PCP - General FAMILY PRACTICE 05/15/20 documented as of this encounter
== END 2025-03-30 10:00 | disposition home or self-care (01) ==
PROVIDERS: PCP Family Medicine; Visit Provider Nurse Practitioner Adult Health
DX: M47.892 Other spondylosis, cervical region (principal); Z98.890 Other specified postprocedural states
CPT/HCPCS: 72141

== ENCOUNTER 2025-04-23 10:41 | Outpatient (CLI) | payer OTHER, SELFPAY ==
--- NOTE | ~2025-04-23 | XR_ITS ---
XR lumbar spine min 4V 04/23/2025 11:05 Indication: Low back pain Procedure: 5 views lumbar spine Comparison: No prior studies for comparison. Findings: There are prosthetic disc devices at L4-5 and L5-S1. There is disc narrowing at L3-4. Vertebral body heights are maintained. There is multilevel facet hypertrophy. No acute fracture or traumatic malalignment. Impression: 1: Moderate lumbar spondylosis with prosthetic disc devices at L4-5 and L5-S1. Reviewed, dictated and finalized at location A. Impression: 1: Moderate lumbar spondylosis with prosthetic disc devices at L4-5 and L5-S1.
--- OUTSIDE RECORDS SUMMARY | 2025-04-23 11:13 | XMS_ITS | Encounter Summary ---
Author Organization [facility] Address [address] [place] [address] Care Team Providers Care Broom Bundler Name Role Phone Nestor Fletcher MD Primary Care Provider [phone] Encounter Details Date Type Department Care Team (Latest Contact Info) Description 01/30/2022 Where Was it Filmed Message Enc [facility] Medical Group Family & Internal Medicine [facility] [address] [place] [address] [place] Fletcher [place] [id number] [place] [address] Question regarding DRUG MONITORING, PANEL 5, [...] Sex Assigned at Female 10/30/2019 8:35 AM KNOT TIER Legal Sex Female 10:55 PM CDT Gender Identity Female 10/30/2019 8:35 AM KNOT TIER Sexual Orientation Straight 10/30/2019 8: 35 AM KNOT TIER COVID-19 Exposure Response Date Recorded In the [...] Care Team (Late st Contact Info) Description 08/26/2025 9:00 AM KNOT TIER Office Visit [facility] Medical Group Multispecialty Care - [facility] [address] [facility] [address] [place] [phone] Francisco Levi DO [address] [place] [address] documented as of this encounter Visit Diagnoses Not on filedocumented in this encounter Additional Health Concerns Infection Onset Date Last Indicated Resolved Time COVID-19 Rule Out 05/20/2023 05/20/2023 05/20/2023 6:44 PM CDT COVID-19 Rule Out 09/11/2023 09/11/2023 09/11/2023 10:29 AM KNOT TIER COVID-19 Rule Out 03/18/2024 03/18/2024 03/18/2024 8:30 PM CDT COVID-19 Rule Out 05/27/2024 05/27/2024 05/27/2024 7:16 PM CDT Assessment Noted Time PHQ-9 Depression Total Score: 0 08/24/20 21 2:19 PM KNOT TIER documented as of this encounter Care Teams Broom Bundler Relationship Specialty [place] [address] [place] [address] PCP - General FAMILY PRACTICE 05/15/20 documented as of this encounter
--- OUTSIDE RECORDS SUMMARY | 2025-04-23 11:13 | XMS_ITS | Encounter Summary ---
Author Organization [facility] Address [address] [place] [address] Care Team Providers Care Loan Auditor Name Role Phone Nestor Fletcher MD Primary Care Provider [phone] Encounter Details Date Type Department Care Team (Late st Contact Info) Description 10/08/2024 Screenhero Message Enc [facility] Medical Group Family & Internal Medicine [address] [address] Nestor Fletcher MD [address] [place] [address] Sinus Social History Tobacco Use Types [...] Assigned at Female 10/30/2019 8:35 AM RN SOCIAL SERVICES Legal Sex Female 10:55 PM CDT Gender Identity Female 10/30/2019 8:35 AM RN SOCIAL SERVICES Sexual Orientation Straight 10/30/2019 8: 35 AM RN SOCIAL SERVICES documented as of this encounter Functional Status [...] Assessment Author Status No 06/06/2022 12:00 PM Georgia Sofia RN Active documented as of this encounter Mental Status * Because of a physical, mental, or emotional condition, do you have serious difficulty concentrating, remembering, or making decisions? Answer Entry Date Author Status No 06/06/2022 12:00 PM Georgia Sofia RN Active documented in this encounter Plan of Treatment Upcoming Encounters Date Type Department Care Team (Late st Contact Info) Description 08/26/2025 9:00 AM RN SOCIAL SERVICES Office Visit [facility] Medical Group Multispecialty Care - [facility] [address] [place] [address] Francisco Levi, [address] [place] [address] documented as of this encounter Goals Goal Patient Goal Type Associated Problems Recent Progress Patient-Stated? Author Health - patient able to perform ADLs independently Lifestyle No Vega hendrickson, Kareem Camacho RN documented as of this encounter Visit Diagnoses Not on filedocumented in this encounter Additional Health Concerns Assessment Noted Time PHQ-9 Depression Total Score: 13 025 11:16 AM RN SOCIAL SERVICES documented as of this encounter Care Teams Loan Auditor Relationship Specialty [place] [address] [place] [address] PCP - General FAMILY PRACTICE 05/15/20 documented as of this encounter
--- OUTSIDE RECORDS SUMMARY | 2025-04-23 11:13 | XMS_ITS | Encounter Summary ---
Author Organization [facility] Address [address] [place] [address] Care Team Providers Care Fly Worker Name Role Phone Nestor Fletcher MD Primary Care Provider [phone] Encounter Details Date Type Department Care Team (Late st Contact Info) Description 12/28/2021 [employer] Message Enc [facility] Medical Group Family & Internal Medicine [address] [address] Nestor Flethcer MD [address] [place] [address] Pain meds Social History Tobacco Use [...] Sex Assigned at Female 10/30/2019 8:35 AM GENETIC TECHNOLOGIST Legal Sex Female 10:55 PM CDT Gender Identity Female 10/30/2019 8:35 AM GENETIC TECHNOLOGIST Sexual Orientation Straight 10/30/2019 8: 35 AM GENETIC TECHNOLOGIST COVID-19 Exposure Response Date Recorded In the [...] st Contact Info) Description 08/26/2025 9:00 AM GENETIC TECHNOLOGIST Office Visit [facility] Medical Group Multispecialty Care - [facility] [address] [place] [phone] Francisco Levi DO [address] [place] [address] documented as of this encounter Visit Diagnoses Not on filedocumented in this encounter Additional Health Concerns Infection Onset Date Last Indicated Resolved Time COVID-19 Rule Out 05/20/2023 05/20/2023 05/20/2023 6:44 PM CDT COVID-19 Rule Out 09/11/2023 09/11/2023 09/11/2023 10:29 AM GENETIC TECHNOLOGIST COVID-19 Rule Out 03/18/2024 03/18/2024 03/18/2024 8:30 PM CDT COVID-19 Rule Out 05/27/2024 05/27/2024 05/27/2024 7:16 PM CDT Assessment Noted Time PHQ-9 Depression Total Score: 0 08/24/20 21 2:19 PM GENETIC TECHNOLOGIST documented as of this encounter Care Teams Fly Worker Relationship Specialty [place] [address] [place] [address] PCP - General FAMILY PRACTICE 05/15/20 documented as of this encounter
--- OUTSIDE RECORDS SUMMARY | 2025-04-23 11:13 | XMS_ITS | Encounter Summary ---
Author Organization [facility] Address [address] [place] [address] Care Team Providers Care Test Engineering Manager Name Role Phone Nestor Fletcher MD Primary Care Provider [phone] Encounter Details Date Type Department Care Team (Late st Contact Info) Description 01/11/2022 Vouchr Message Enc [facility] Medical Group Orthopedic Surgery-[facility] [address] [place] [address] [place] [address] [place] [address] PT Social History Tobacco Use [...] Sex Assigned at Female 10/30/2019 8:35 AM CORE LOADER Legal Sex Female 10:55 PM CDT Gender Identity Female 10/30/2019 8:35 AM CORE LOADER Sexual Orientation Straight 10/30/2019 8: 35 AM CORE LOADER COVID-19 Exposure Response Date Recorded In the [...] st Contact Info) Description 08/26/2025 9:00 AM CORE LOADER Office Visit [facility] Medical Group Multispecialty Care - [facility] [address] [place] [phone] Francisco Levi DO [address] [place] [address] documented as of this encounter Visit Diagnoses Not on filedocumented in this encounter Additional Health Concerns Infection Onset Date Last Indicated Resolved Time COVID-19 Rule Out 05/20/2023 05/20/2023 05/20/2023 6:44 PM CDT COVID-19 Rule Out 09/11/2023 09/11/2023 09/11/2023 10:29 AM CORE LOADER COVID-19 Rule Out 03/18/2024 03/18/2024 03/18/2024 8:30 PM CDT COVID-19 Rule Out 05/27/2024 05/27/2024 05/27/2024 7:16 PM CDT Assessment Noted Time PHQ-9 Depression Total Score: 0 08/24/20 21 2:19 PM CORE LOADER documented as of this encounter Care Teams Test Engineering Manager Relationship Specialty [place] [address] [place] [address] PCP - General FAMILY PRACTICE 05/15/20 documented as of this encounter
--- OUTSIDE RECORDS SUMMARY | 2025-04-23 11:13 | XMS_ITS | Encounter Summary ---
Author Organization [facility] Address [address] [place] [address] Care Team Providers Care Machine Brusher Name Role Phone Nestor Fletcher MD Primary Care Provider [phone] Encounter Details Date Type Department Care Team (Late st Contact Info) Description 01/24/2022 ViFluxt Message Enc [facility] Medical Group Multispecialty Care - [facility] [address] [facility], [address] [place] [phone] Pura Velazquez APRN [address] [facility] [address] [place] [address] Back Social History Tobacco Use Types Packs/Day [...] Sex Assigned at Female 10/30/2019 8:35 AM BIOMEDICAL ENGINEER Legal Sex Female 10:55 PM CDT Gender Identity Female 10/30/2019 8:35 AM BIOMEDICAL ENGINEER Sexual Orientation Straight 10/30/2019 8: 35 AM BIOMEDICAL ENGINEER COVID-19 Exposure Response Date Recorded In [...] st Contact Info) Description 08/26/2025 9:00 AM BIOMEDICAL ENGINEER Office Visit [facility] Medical Group Multispecialty Care - [address] [place] [address] Francisco Levi, [address] [place] [address] documented as of this encounter Visit Diagnoses Not on filedocumented in this encounter Additional Health Concerns Infection Onset Date Last Indicated Resolved Time COVID-19 Rule Out 05/20/2023 05/20/2023 05/20/2023 6:44 PM CDT COVID-19 Rule Out 09/11/2023 09/11/2023 09/11/2023 10:29 AM BIOMEDICAL ENGINEER COVID-19 Rule Out 03/18/2024 03/18/2024 03/18/2024 8:30 PM CDT COVID-19 Rule Out 05/27/2024 05/27/2024 05/27/2024 7:16 PM CDT Assessment Noted Time PHQ-9 Depression Total Score: 0 08/24/20 21 2:19 PM BIOMEDICAL ENGINEER documented as of this encounter Care Teams Machine Brusher Relationship Specialty [place] [address] [place] [address] PCP - General FAMILY PRACTICE 05/15/20 documented as of this encounter
--- OUTSIDE RECORDS SUMMARY | 2025-04-23 11:13 | XMS_ITS | Encounter Summary ---
Author Organization [facility] Address [address] [place] [address] Care Team Providers Care Drying Unit Felting Machine Operator Name Role Phone Nestor Fletcher MD Primary Care Provider [phone] Encounter Details Date Type Department Care Team (Late st Contact Info) Description 12/30/2021 CrowdCompasst Message Enc [facility] Medical Group Multispecialty Care - [facility] [address] [facility] [address] [facility], [address] [place] [phone] Pura Velazquez APRN [address] [facility] [address] [place] [address] Lumbar Social History Tobacco Use Types Packs/Day [...] Sex Assigned at Female 10/30/2019 8:35 AM SUPERINTENDENT COMPRESSOR STATIONS Legal Sex Female 10:55 PM CDT Gender Identity Female 10/30/2019 8:35 AM SUPERINTENDENT COMPRESSOR STATIONS Sexual Orientation Straight 10/30/2019 8: 35 AM SUPERINTENDENT COMPRESSOR STATIONS COVID-19 Exposure Response Date Recorded In the [...] st Contact Info) Description 08/26/2025 9:00 AM SUPERINTENDENT COMPRESSOR STATIONS Office Visit [facility] Medical Group Multispecialty Care - [facility] [address] [place] [address] Francisco Levi, [address] [facility] [place] [address] documented as of this encounter Visit Diagnoses Not on filedocumented in this encounter Additional Health Concerns Infection Onset Date Last Indicated Resolved Time COVID-19 Rule Out 05/20/2023 05/20/2023 05/20/2023 6:44 PM CDT COVID-19 Rule Out 09/11/2023 09/11/2023 09/11/2023 10:29 AM SUPERINTENDENT COMPRESSOR STATIONS COVID-19 Rule Out 03/18/2024 03/18/2024 03/18/2024 8:30 PM CDT COVID-19 Rule Out 05/27/2024 05/27/2024 05/27/2024 7:16 PM CDT Assessment Noted Time PHQ-9 Depression Total Score: 0 08/24/20 21 2:19 PM SUPERINTENDENT COMPRESSOR STATIONS documented as of this encounter Care Teams Drying Unit Felting Machine Operator Relationship Specialty [place] [address] [place] [address] PCP - General FAMILY PRACTICE 05/15/20 documented as of this encounter
--- OUTSIDE RECORDS SUMMARY | 2025-04-23 11:13 | XMS_ITS | Encounter Summary ---
Author Organization [facility] Address [address] [place] [address] Care Team Providers Care Associate Dean Name Role Phone Nestor Fletcher MD Primary Care Provider [phone] Encounter Details Date Type Department Care Team (Late st Contact Info) Description 02/02/2022 LookTrackert Message Enc [facility] Medical Group Multispecialty Care - [facility] [address] [facility], [address] [place] [phone] Pura Velazquez APRN [address] [facility] [address] [place] [address] Surgery Social History Tobacco Use Types Packs/Day [...] Sex Assigned at Female 10/30/2019 8:[address] INSPECTOR Legal Sex Female 10:55 PM CDT Gender Identity Female 10/30/2019 8:[address] INSPECTOR Sexual Orientation Straight 10/30/2019 8: [address] INSPECTOR COVID-19 Exposure Response Date Recorded In [...] st Contact Info) Description 08/26/2025 9:[address] INSPECTOR Office Visit [facility] Medical Group Multispecialty Care - [address] [place] [address] Francisco Levi, [address] [place] [address] documented as of this encounter Visit Diagnoses Not on filedocumented in this encounter Additional Health Concerns Infection Onset Date Last Indicated Resolved Time COVID-19 Rule Out 05/20/2023 05/20/2023 05/20/2023 6:44 PM CDT COVID-19 Rule Out 09/11/2023 09/11/2023 09/11/2023 10:[address] INSPECTOR COVID-19 Rule Out 03/18/2024 03/18/2024 03/18/2024 8:30 PM CDT COVID-19 Rule Out 05/27/2024 05/27/2024 05/27/2024 7:16 PM CDT Assessment Noted Time PHQ-9 Depression Total Score: 0 08/24/20 21 2:[address] INSPECTOR documented as of this encounter Care Teams Associate Dean Relationship Specialty [place] [address] [place] [address] PCP - General FAMILY PRACTICE 05/15/20 documented as of this encounter
--- OUTSIDE RECORDS SUMMARY | 2025-04-23 11:13 | XMS_ITS | Encounter Summary ---
Author Organization [facility] Address [address] [place] [address] Care Team Providers Care Commercial Hvac Technician Name Role Phone Nestor Fletcher MD Primary Care Provider [phone] Encounter Details Date Type Department Care Team (Late st Contact Info) Description 01/04/2022 Arcamed Message Enc [facility] Medical Group Orthopedic Surgery-[place] [address] [place] [address] [place] [address] [place] [address] PT Social History Tobacco Use [...] Sex Assigned at Female 10/30/2019 8:35 AM SAMPLE DISTRIBUTOR Legal Sex Female 10:55 PM CDT Gender Identity Female 10/30/2019 8:35 AM SAMPLE DISTRIBUTOR Sexual Orientation Straight 10/30/2019 8: 35 AM SAMPLE DISTRIBUTOR COVID-19 Exposure Response Date Recorded In the [...] st Contact Info) Description 08/26/2025 9:00 AM SAMPLE DISTRIBUTOR Office Visit [facility] Medical Group Multispecialty Care - [facility] [address] [place] [phone] Francisco Levi DO [address] [place] [address] documented as of this encounter Visit Diagnoses Not on filedocumented in this encounter Additional Health Concerns Infection Onset Date Last Indicated Resolved Time COVID-19 Rule Out 05/20/2023 05/20/2023 05/20/2023 6:44 PM CDT COVID-19 Rule Out 09/11/2023 09/11/2023 09/11/2023 10:29 AM SAMPLE DISTRIBUTOR COVID-19 Rule Out 03/18/2024 03/18/2024 03/18/2024 8:30 PM CDT COVID-19 Rule Out 05/27/2024 05/27/2024 05/27/2024 7:16 PM CDT Assessment Noted Time PHQ-9 Depression Total Score: 0 08/24/20 21 2:19 PM SAMPLE DISTRIBUTOR documented as of this encounter Care Teams Commercial Hvac Technician Relationship Specialty [place] [address] [place] [address] PCP - General FAMILY PRACTICE 05/15/20 documented as of this encounter
--- OUTSIDE RECORDS SUMMARY | 2025-04-23 11:13 | XMS_ITS | Encounter Summary ---
Author Organization [facility] Address [address] [place] [address] Care Team Providers Care Building Construction Engineer Name Role Phone Nestor Fletcher MD Primary Care Provider [phone] Encounter Details Date Type Department Care Team (Late st Contact Info) Description 02/22/2022 ServiceTitan Message Enc [facility] Medical Group Foot & Ankle Specialists [facility] [address] [place] [address] Carlos A Ocasio, DPBrinda [address] [place] [address] Surgery Social History Tobacco Use Types [...] Assigned at Female 10/30/2019 8:35 AM TRANSMISSION LINE ENGINEER Legal Sex Female 10:55 PM CDT Gender Identity Female 10/30/2019 8:35 AM TRANSMISSION LINE ENGINEER Sexual Orientation Straight 10/30/2019 8: 35 AM TRANSMISSION LINE ENGINEER COVID-19 Exposure Response Date Recorded In [...] PM CDT Vanessa Patton RN Active * [place] Suicide Severity Rating Scale (Screener/Recent Self-Report) Question [...] st Contact Info) Description 08/26/2025 9:00 AM TRANSMISSION LINE ENGINEER Office Visit [facility] Medical Group Multispecialty Care - [facility] [address] [place] [address] Francisco Levi DO [address] [place] [address] documented as of this encounter Visit Diagnoses Not on filedocumented in this encounter Additional Health Concerns Infection Onset Date Last Indicated Resolved Time COVID-19 Rule Out 05/20/2023 05/20/2023 05/20/2023 6:44 PM CDT COVID-19 Rule Out 09/11/2023 09/11/2023 09/11/2023 10:29 AM TRANSMISSION LINE ENGINEER COVID-19 Rule Out 03/18/2024 03/18/2024 03/18/2024 8:30 PM CDT COVID-19 Rule Out 05/27/2024 05/27/2024 05/27/2024 7:16 PM CDT Assessment Noted Time PHQ-9 Depression Total Score: 0 08/24/20 21 2:19 PM TRANSMISSION LINE ENGINEER documented as of this encounter Care Teams Building Construction Engineer Relationship Specialty [place] [address] [place] [address] PCP - General FAMILY PRACTICE 05/15/20 documented as of this encounter
--- OUTSIDE RECORDS SUMMARY | 2025-04-23 11:13 | XMS_ITS | Encounter Summary ---
Author Organization [facility] Address [address] [place] [address] Care Team Providers Care Vice President Of Recruiting Name Role Phone Nestor Fletcher MD Primary Care Provider [phone] Encounter Details Date Type Department Care Team (Late st Contact Info) Description 12/08/2021 Envision Blue Greent Message Enc [facility] Medical Group Multispecialty Care - [facility] [address] [facility], [address] [place] [address] Pura Velazquez APRN [address] [facility] [address] [place] [address] Myelogram Social History Tobacco Use Types Packs/Day [...] Assigned at Female 10/30/2019 8:35 AM MEDICAL RECORDS COORDINATOR Legal Sex Female 10:55 PM CDT Gender Identity Female 10/30/2019 8:35 AM MEDICAL RECORDS COORDINATOR Sexual Orientation Straight 10/30/2019 8: 35 AM MEDICAL RECORDS COORDINATOR COVID-19 Exposure Response Date Recorded In the [...] PM CDT June Benavidez RN Active * [place] Suicide Severity Rating Scale (Screener/Recent Self-Report) Question [...] st Contact Info) Description 08/26/2025 9:00 AM MEDICAL RECORDS COORDINATOR Office Visit [facility] Group Multispecialty Care - [facility] [address] [place] [address] Francisco Levi DO [address] [facility] [place] [address] documented as of this encounter Visit Diagnoses Not on filedocumented in this encounter Additional Health Concerns Infection Onset Date Last Indicated Resolved Time COVID-19 Rule Out 05/20/2023 05/20/2023 05/20/2023 6:44 PM CDT COVID-19 Rule Out 09/11/2023 09/11/2023 09/11/2023 10:29 AM MEDICAL RECORDS COORDINATOR COVID-19 Rule Out 03/18/2024 03/18/2024 03/18/2024 8:30 PM CDT COVID-19 Rule Out 05/27/2024 05/27/202405/2705/27/2024 7:16 PM CDT Assessment Noted Time PHQ-9 Depression Total Score: 0 08/24/20 21 2:19 PM MEDICAL RECORDS COORDINATOR documented as of this encounter Care Teams Vice President Of Recruiting Relationship Specialty [place] [address] [place] [address] PCP - General FAMILY PRACTICE 05/15/20 documented as of this encounter
--- OUTSIDE RECORDS SUMMARY | 2025-04-23 11:13 | XMS_ITS | Encounter Summary ---
Author Organization [facility] Address [address] [place] [address] Care Team Providers Care Caddymaster Name Role Phone Nestor Fletcher MD Primary Care Provider [phone] Reason for Visit * Reason Onset Date Comments Referral 10/15/2024 Encounter Details Date Type Department Care Team (Latest Contact Info) Description 10/15/2024 Benkyo Playert Message Enc [facility] Medical Group Family & Internal Medicine [facility] [address] [place] [address] Nestor Fletcher MD [address] [place] [address] Neurosurgery referral Social History Tobacco Use [...] Sex Assigned at Female 10/30/2019 8:35 AM BOX STACKER Legal Sex Female 10:55 PM CDT Gender Identity Female 10/30/2019 8:35 AM BOX STACKER Sexual Orientation Straight 10/30/2019 8: 35 AM BOX STACKER documented as of this encounter Functional [...] 10/23/2024 7:48 AM CST Ok, thank you! STACKER * Marina Archer RN - 10/22/2024 4:14 PM CST Can the pt not see [facility]surgery [facility] at [facility]? Are they out of network with pt's insurance? STACKER * Crystal Ying - 10/22/2024 3:44 PM CST [facility]surgery called and stated the referral was sent to them. They only havePiedad Oliver AUTO ACCESSORIES INSTALLER that goes to [facility]. All of their other providers only go to [place]. They are not sure if this referral was ment for them or another group that sees pt at [facility] If pt is set on seeing someone at [facility] a different referral would have to be put in. If she is okay with [place] location they can proceed Please call them back with an update to know if they can schedule an apt with Renu [phone] est 5 Gemma STACKER * Marina Archer RN - 10/15/2024 8:12 AM CST Can someone please check into the neurosurgery referral for this pt that was placed in September? We put in for neurosurgery of [facility] whichever provider comes to [facility]. If they are out of network with's insurance, she needs referred to neurosurgery elsewhere. I seen somewhere in her chart about [facility]. She can not see a neurologist for her diagnosis. Has to be a neurosurgeon. Pleaseadvise. STACKER documented in this encounter Plan of Treatment Upcoming Encounters Date Type Department Care Team (Late st Contact Info) Description 08/26/2025 9:00 AM BOX STACKER Office Visit [facility] Medical Group Multispecialty Care - [facility] [address] [facility] [address] [place] [address] Francisco Levi DO [address] [facility] [address] [place], [place] [phone] documented as of this encounter Goals Goal Patient Goal Type Associated Problems Recent Progress Patient-Stated? Author Health - patient able to perform ADLs independently Lifestyle No Koerkenme i madhavi, Kareem Camacho RN documented as of this encounter Visit Diagnoses Not on filedocumented in this encounter Additional Health Concerns Assessment Noted Time PHQ-9 Depression Total Score: 13 01/22/2 025 11:16 AM BOX STACKER documented as of this encounter Care Teams Caddymaster Relationship Specialty [place] [address] [place] [address] PCP - General FAMILY PRACTICE 05/15/20 documented as of this encounter
--- OUTSIDE RECORDS SUMMARY | 2025-04-23 11:13 | XMS_ITS | Encounter Summary ---
Author Organization [facility] Address [address] [place] [address] Care Team Providers Care Manager Traffic Name Role Phone Nestor Fletcher MD Primary Care Provider +1 [phone] Encounter Details Date Type Department Care Team (Late st Contact Info) Description 12/06/2021 Pop Up Archive Message Enc [facility] Family & Internal Medicine [address] [address] Nestor Fletcher MD [address] [place] [address] Shoulder and knees Social History Tobacco [...] Sex Assigned at Female 10/30/2019 8:35 AM PULLMAN CAR CLERK Legal Sex Female 10:55 PM CDT Gender Identity Female 10/30/2019 8:35 AM PULLMAN CAR CLERK Sexual Orientation Straight 10/30/2019 8: 35 AM PULLMAN CAR CLERK COVID-19 Exposure Response Date Recorded In the [...] PM CDT June Benavidez RN Active * [place] Suicide Severity Rating Scale (Screener/Recent Self-Report) Question [...] st Contact Info) Description 08/26/2025 9:00 AM PULLMAN CAR CLERK Office Visit [facility] Multispecialty Care - [facility] [address] [facility] [address] [place] [address] Francisco Levi DO [address] [facility] [address] [place] [address] documented as of this encounter Visit Diagnoses Not on filedocumented in this encounter Additional Health Concerns Infection Onset Date Last Indicated Resolved Time COVID-19 Rule Out 05/20/2023 05/20/2023 05/20/2023 6:44 PM CDT COVID-19 Rule Out 09/11/2023 09/11/2023 09/11/2023 10:29 AM PULLMAN CAR CLERK COVID-19 Rule Out 03/18/2024 03/18/2024 03/18/2024 8:30 PM CDT COVID-19 Rule Out 05/27/2024 05/27/2024 05/27/2024 7:16 PM CDT Assessment Noted Time PHQ-9 Depression Total Score: 0 08/24/20 21 2:19 PM PULLMAN CAR CLERK documented as of this encounter Care Teams Manager Traffic Relationship Specialty [place] [address] [place] [address] PCP - General FAMILY PRACTICE 05/15/20 documented as of this encounter
--- OUTSIDE RECORDS SUMMARY | 2025-04-23 11:13 | XMS_ITS | Encounter Summary ---
Author Organization [facility] Address [address] [place] [address] Care Team Providers Care Chiropractic Teacher Name Role Phone Nestor Fletcher MD Primary Care Provider [phone] Encounter Details Date Type Department Care Team (Late st Contact Info) Description 02/22/2022 Wistia Message Enc [facility] Family & Internal Medicine [address] [address] Nestor Fletcher MD [address] [place] [address] Tomorrows appointment Social History Tobacco Use [...] Sex Assigned at Female 10/30/2019 8:35 AM BURR MILL OPERATOR Legal Sex Female 10:55 PM CDT Gender Identity Female 10/30/2019 8:35 AM BURR MILL OPERATOR Sexual Orientation Straight 10/30/2019 8: 35 AM BURR MILL OPERATOR COVID-19 Exposure Response Date Recorded In [...] PM CDT Vanessa Patton RN Active * [place] Suicide Severity Rating Scale (Screener/Recent Self-Report) Question [...] st Contact Info) Description 08/26/2025 9:00 AM BURR MILL OPERATOR Office Visit [facility] Multispecialty Care - [facility] [address] [place] [address] Francisco Levi DO [address] [facility] [address] [place] [address] documented as of this encounter Visit Diagnoses Not on filedocumented in this encounter Additional Health Concerns Infection Onset Date Last Indicated Resolved Time COVID-19 Rule Out 05/20/2023 05/20/2023 05/20/2023 6:44 PM CDT COVID-19 Rule Out 09/11/2023 09/11/2023 09/11/2023 10:29 AM BURR MILL OPERATOR COVID-19 Rule Out 03/18/2024 03/18/2024 03/18/2024 8:30 PM CDT COVID-19 Rule Out 05/27/2024 05/27/2024 05/27/2024 7:16 PM CDT Assessment Noted Time PHQ-9 Depression Total Score: 0 08/24/20 21 2:19 PM BURR MILL OPERATOR documented as of this encounter Care Teams Chiropractic Teacher Relationship Specialty [place] [address] [place] [address] PCP - General FAMILY PRACTICE 05/15/20 documented as of this encounter
--- OUTSIDE RECORDS SUMMARY | 2025-04-23 11:13 | XMS_ITS | Encounter Summary ---
Author Organization [facility] Address [address] [place] [address] Care Team Providers Care Solder Leveler Printed Circuit Boards Name Role Phone Nestor Fletcher MD Primary Care Provider [phone] Encounter Details Date Type Department Care Team (Late st Contact Info) Description 02/03/2022 Advantagene Message Enc [facility] Medical Group Family & Internal Medicine [address] [address] Nestor Fletcher MD [address] [place] [address] Surgery Social History Tobacco Use Types [...] Sex Assigned at Female 10/30/2019 8:35 AM ARTISTS' MODEL Legal Sex Female 10:55 PM CDT Gender Identity Female 10/30/2019 8:35 AM ARTISTS' MODEL Sexual Orientation Straight 10/30/2019 8: 35 AM ARTISTS' MODEL COVID-19 Exposure Response Date Recorded In the [...] st Contact Info) Description 08/26/2025 9:00 AM ARTISTS' MODEL Office Visit [facility] Medical Group Multispecialty Care - [facility] [address] [place] [address] Francisco Levi DO [address] [facility] [address] [place] [address] documented as of this encounter Visit Diagnoses Not on filedocumented in this encounter Additional Health Concerns Infection Onset Date Last Indicated Resolved Time COVID-19 Rule Out 05/20/2023 05/20/2023 05/20/2023 6:44 PM CDT COVID-19 Rule Out 09/11/2023 09/11/2023 09/11/2023 10:29 AM ARTISTS' MODEL COVID-19 Rule Out 03/18/2024 03/18/2024 03/18/2024 8:30 PM CDT COVID-19 Rule Out 05/27/2024 05/27/2024 05/27/2024 7:16 PM CDT Assessment Noted Time PHQ-9 Depression Total Score: 0 08/24/20 21 2:19 PM ARTISTS' MODEL documented as of this encounter Care Teams Solder Leveler Printed Circuit Boards Relationship Specialty [place] [address] [place] [address] PCP - General FAMILY PRACTICE 05/15/20 documented as of this encounter
--- OUTSIDE RECORDS SUMMARY | 2025-04-23 11:13 | XMS_ITS | Encounter Summary ---
Author Organization [facility] Address [address] [place] [address] Care Team Providers Care Environmental Health Manager Name Role Phone Nestor Fletcher MD Primary Care Provider [phone] Encounter Details Date Type Department Care Team (Late st Contact Info) Description 11/08/2024 Man[place]ron Message Enc [facility] Medical Group Family & Internal Medicine [address] [address] Nestor Fletcher MD [address] [place] [address] Mammogram Social History Tobacco Use Types [...] Sex Assigned at Female 10/30/2019 8:35 AM BEST SECOND JOBS Legal Sex Female 10:55 PM CDT Gender Identity Female 10/30/2019 8:35 AM BEST SECOND JOBS Sexual Orientation Straight 10/30/2019 8: 35 AM BEST SECOND JOBS documented as of this encounter Functional Status [...] 06/06/2022 12:00 PM Georgia Sofia RN Active * Because of a physical, [...] st Contact Info) Description 08/26/2025 9:00 AM BEST SECOND JOBS Office Visit [facility] Medical Group Multispecialty Care - [facility] [address] [place] [address] Francisco Levi, [address] [place] [address] documented as of this encounter Goals Goal Patient Goal Type Associated Problems Recent Progress Patient-Stated? Author Health - patient able to perform ADLs independently Lifestyle No Vega hendrickson, Kareem Camacho RN documented as of this encounter Visit Diagnoses Not on filedocumented in this encounter Additional Health Concerns Assessment Noted Time PHQ-9 Depression Total Score: 13 025 11:16 AM BEST SECOND JOBS documented as of this encounter Care Teams Environmental Health Manager Relationship Specialty [place] [address] [place] [address] PCP - General FAMILY PRACTICE 05/15/20 documented as of this encounter
--- OUTSIDE RECORDS SUMMARY | 2025-04-23 11:13 | XMS_ITS | Encounter Summary ---
Author Organization [facility] Address [address] [place] [address] Care Team Providers Care Senior It Auditor Name Role Phone Nestor Fletcher MD Primary Care Provider [phone] Encounter Details Date Type Department Care Team (Late st Contact Info) Description 01/24/2022 Agensys Message Enc [facility] Medical Group Family & Internal Medicine [address] [address] Nestor Fletcher MD [address] [place] [address] Appointment Social History Tobacco Use Types [...] Assigned at Female 10/30/2019 8:35 AM CIVIL PROJECT ENGINEER Legal Sex Female 10:55 PM CDT Gender Identity Female 10/30/2019 8:35 AM CIVIL PROJECT ENGINEER Sexual Orientation Straight 10/30/2019 8: 35 AM CIVIL PROJECT ENGINEER COVID-19 Exposure Response Date Recorded In [...] st Contact Info) Description 08/26/2025 9:00 AM CIVIL PROJECT ENGINEER Office Visit [facility] Medical Group Multispecialty Care - [facility] [address] [place] [address] Francisco Levi DO [address] [facility] [place] [address] documented as of this encounter Visit Diagnoses Not on filedocumented in this encounter Additional Health Concerns Infection Onset Date Last Indicated Resolved Time COVID-19 Rule Out 05/20/2023 05/20/2023 05/20/2023 6:44 PM CDT COVID-19 Rule Out 09/11/2023 09/11/2023 09/11/2023 10:29 AM CIVIL PROJECT ENGINEER COVID-19 Rule Out 03/18/2024 03/18/2024 03/18/2024 8:30 PM CDT COVID-19 Rule Out 05/27/2024 05/27/2024 05/27/2024 7:16 PM CDT Assessment Noted Time PHQ-9 Depression Total Score: 0 08/24/20 21 2:19 PM CIVIL PROJECT ENGINEER documented as of this encounter Care Teams Senior It Auditor Relationship Specialty [place] [address] [place] [address] PCP - General FAMILY PRACTICE 05/15/20 documented as of this encounter
--- OUTSIDE RECORDS SUMMARY | 2025-04-23 11:13 | XMS_ITS | Encounter Summary ---
Author Organization [facility] Address [facility] [place] [address] Care Team Providers Care Manager Instrumentation Name Role Phone Tutu Hill MD Primary Care Provider + WallingfordAry NP Primary Care Provider + None, Provider Primary Care Provider Nestor Ma MD Primary Care Provider [phone] Encounter Details Date Type Department Care Team (Late st Contact Info) Description 06/19/2006 Abstract [facility] Conversion , Generic Conversion, Social History Tobacco Use Types Packs/Day Years Used Date Smoking Tobacco: Never Assessed Comments Unknown Sex and Gender Information Value Date Recorded Sex Assigned at Female 10/30/2019 8:35 AM BODY AND FENDER WORKER Legal Sex Female 10:55 PM CDT Gender Identity Female 10/30/2019 8:35 AM BODY AND FENDER WORKER Sexual Orientation Straight 10/30/2019 8: 35 AM BODY AND FENDER WORKER documented as of this encounter Plan of Treatment Upcoming Encounters Date Type Department Care Team (Late st Contact Info) Description 08/26/2025 9:00 AM BODY AND FENDER WORKER Office Visit [facility] Medical Group Multispecialty Care - [facility] [address] [place] [address] Francisco Levi DO [address] [address] [place] [address] [phone] (work) documented as of this encounter Visit Diagnoses [...] Rule Out 07/06/2020 07/06/2020 07/08/2020 11:00 PM BODY AND FENDER WORKER COVID-19 Rule Out 07/09/2020 07/09/2020 07/12/2020 10:16 AM BODY AND FENDER WORKER COVID-19 Rule Out 11/14/2020 11/14/2020 11/15/2020 10:25 AM CDT COVID-19 Rule Out 01/05/2021 01/05/2021 01/05/2021 5:26 PM CDT COVID-19 Rule Out 12/02/2021 12/02/2021 12/02/2021 4:28 PM CDT COVID-19 Rule Out 05/20/2023 05/20/2023 05/20/2023 6:44 PM CDT COVID-19 Rule Out 09/11/2023 09/11/2023 09/11/2023 10:29 AM BODY AND FENDER WORKER COVID-19 Rule Out 03/18/2024 03/18/2024 03/18/2024 8:30 PM CDT COVID-19 Rule Out 05/27/2024 05/27/202405/2705/27/2024 7:16 PM CDT documented as of this encounter Care Teams Manager Instrumentation Relationship Specialty Start Date End Date Tutu Hill MD [address] [facility] [address] [place] [address] PCP - General FAMILY PRACTICE 08/09/18 03/19/20 Ary Rubalcava NP [address] [facility] [address] [place] [address] PCP - General Nurse Practitioner Family 03/20/2003/05 None, MD Santana PCP - General 03/25/20 05/14/20 [place] [address] [place] [address] PCP - General FAMILY PRACTICE 05/15/20 documented as of this encounter
--- OUTSIDE RECORDS SUMMARY | 2025-04-23 11:13 | XMS_ITS | Encounter Summary ---
Author Organization [facility] Address [address] [place] [address] Care Team Providers Care Pump And Blower Operator Name Role Phone Nestor Fletcher MD Primary Care Provider [phone] Encounter Details Date Type Department Care Team (Late st Contact Info) Description 02/03/2022 Allozyne Message Enc [facility] Medical Group Foot [facility]le [facility]ists [facility] [address] [place] [address] Carlos A Ocasio, DPBrinda [address] [place] [address] Surgery Social History Tobacco Use Types [...] 10/30/2019 8: 35 AM TOBACCO DRIER OPERATOR COVID-19 Exposure Response Date Recorded In [...] st Contact Info) Description 08/26/2025 9:00 AM TOBACCO DRIER OPERATOR Office Visit [facility] Medical Group Multispecialty Care - [facility] [address] [place] [phone] Francisco Levi DO [address] [facility] [address] [place] [address] documented as of this encounter Visit Diagnoses [...] Total Score: 0 08/24/20 21 2:19 PM TOBACCO DRIER OPERATOR documented as of this encounter Care Teams Pump And Blower Operator Relationship Specialty [place] [address] [place] [address] PCP - General FAMILY PRACTICE 05/15/20 documented as of this encounter
--- OUTSIDE RECORDS SUMMARY | 2025-04-23 11:13 | XMS_ITS | Encounter Summary ---
Author Organization [facility] Address [address] [place] [address] Care Team Providers Care Associate Professor Of Geography Name Role Phone Nestor Fletcher MD Primary Care Provider [phone] Encounter Details Date Type Department Care Team (Late st Contact Info) Description 12/14/2021 Gov-Savings Message [facility] [address] Angelica Archer, AUTOMATION AND CONTROLS INSTRUCTOR [address] [address] Imaging Social History Tobacco Use [...] Sex Assigned at Female 10/30/2019 8:35 AM DENTIST PRIVATE PRACTICE Legal Sex Female 10:55 PM CDT Gender Identity Female 10/30/2019 8:35 AM DENTIST PRIVATE PRACTICE Sexual Orientation Straight 10/30/2019 8: 35 AM DENTIST PRIVATE PRACTICE COVID-19 Exposure Response Date Recorded In the [...] st Contact Info) Description 08/26/2025 9:00 AM DENTIST PRIVATE PRACTICE Office Visit [facility] Medical Group Multispecialty Care - [facility] [address] [place] [address] Francisco Levi DO [address] [facility] [address] [place] [address] documented as of this encounter Visit Diagnoses Not on filedocumented in this encounter Additional Health Concerns Infection Onset Date Last Indicated Resolved Time COVID-19 Rule Out 05/20/2023 05/20/2023 05/20/2023 6:44 PM CDT COVID-19 Rule Out 09/11/2023 09/11/2023 09/11/2023 10:29 AM DENTIST PRIVATE PRACTICE COVID-19 Rule Out 03/18/2024 03/18/2024 03/18/2024 8:30 PM CDT COVID-19 Rule Out 05/27/2024 05/27/2024 05/27/2024 7:16 PM CDT Assessment Noted Time PHQ-9 Depression Total Score: 0 08/24/20 21 2:19 PM DENTIST PRIVATE PRACTICE documented as of this encounter Care Teams Associate Professor Of Geography Relationship Specialty [place] [address] [place] [address] PCP - General FAMILY PRACTICE 05/15/20 documented as of this encounter
--- OUTSIDE RECORDS SUMMARY | 2025-04-23 11:13 | XMS_ITS | Encounter Summary ---
Author Organization [facility] Address [address] [place] [address] Care Team Providers Care Stem Processing Machine Operator Name Role Phone Nestor Fletcher MD Primary Care Provider [phone] Encounter Details Date Type Department Care Team (Late st Contact Info) Description 12/24/2021 [place] Message Enc [facility] Medical Group Family & Internal Medicine [address] [address] Nestor Fletcher MD [address] [place] [address] Question regarding TSH W/REFLEX Social History [...] Sex Assigned at Female 10/30/2019 8:35 AM GLAZIER STAINED GLASS Legal Sex Female 10:55 PM CDT Gender Identity Female 10/30/2019 8:35 AM GLAZIER STAINED GLASS Sexual Orientation Straight 10/30/2019 8: 35 AM GLAZIER STAINED GLASS COVID-19 Exposure Response Date Recorded In the [...] st Contact Info) Description 08/26/2025 9:00 AM GLAZIER STAINED GLASS Office Visit [facility] Medical Group Multispecialty Care - [facility] [address] [place] [phone] Francisco Levi DO [address] [place] [address] documented as of this encounter Visit Diagnoses Not on filedocumented in this encounter Additional Health Concerns Infection Onset Date Last Indicated Resolved Time COVID-19 Rule Out 05/20/2023 05/20/2023 05/20/2023 6:44 PM CDT COVID-19 Rule Out 09/11/2023 09/11/2023 09/11/2023 10:29 AM GLAZIER STAINED GLASS COVID-19 Rule Out 03/18/2024 03/18/2024 03/18/2024 8:30 PM CDT COVID-19 Rule Out 05/27/2024 05/27/2024 05/27/2024 7:16 PM CDT Assessment Noted Time PHQ-9 Depression Total Score: 0 08/24/20 21 2:19 PM GLAZIER STAINED GLASS documented as of this encounter Care Teams Stem Processing Machine Operator Relationship Specialty [place] [address] [place] [address] PCP - General FAMILY PRACTICE 05/15/20 documented as of this encounter
--- OUTSIDE RECORDS SUMMARY | 2025-04-23 11:13 | XMS_ITS | Encounter Summary ---
Author Organization [facility] Address [facility] [place] [address] Care Team Providers Care Locomotive Engineer Name Role Phone Tutu Hill MD Primary Care Provider + BlodgettAry NP Primary Care Provider + None, Provider Primary Care Provider Nestor Ma MD Primary Care Provider [phone] Encounter Details Date Type Department Care Team (Late st Contact Info) Description 06/15/2006 Abstract [facility] Clinics Conversion , Generic Conversion, Social History Tobacco Use Types Packs/Day Years Used Date Smoking Tobacco: Never Assessed Comments Unknown Sex and Gender Information Value Date Recorded Sex Assigned at Female 10/30/2019 8:35 AM OPTICAL SYSTEMS ENGINEER Legal Sex Female 10:55 PM CDT Gender Identity Female 10/30/2019 8:35 AM OPTICAL SYSTEMS ENGINEER Sexual Orientation Straight 10/30/2019 8: 35 AM OPTICAL SYSTEMS ENGINEER documented as of this encounter Plan of Treatment Upcoming Encounters Date Type Department Care Team (Late st Contact Info) Description 08/26/2025 9:00 AM OPTICAL SYSTEMS ENGINEER Office Visit [facility] Medical Group Multispecialty Care - [facility] [address] [place] [address] Francisco Levi DO [address] [facility] [address] [place] [address] [phone] (work) documented as of this encounter Visit [...] Rule Out 07/06/2020 07/06/2020 07/08/2020 11:00 PM OPTICAL SYSTEMS ENGINEER COVID-19 Rule Out 07/09/2020 07/09/2020 07/12/2020 10:16 AM OPTICAL SYSTEMS ENGINEER COVID-19 Rule Out 11/14/2020 11/14/2020 11/15/2020 10:25 AM CDT COVID-19 Rule Out 01/05/2021 01/05/2021 01/05/2021 5:26 PM CDT COVID-19 Rule Out 12/02/2021 12/02/2021 12/02/2021 4:28 PM CDT COVID-19 Rule Out 05/20/2023 05/20/2023 05/20/2023 6:44 PM CDT COVID-19 Rule Out 09/11/2023 09/11/2023 09/11/2023 10:29 AM OPTICAL SYSTEMS ENGINEER COVID-19 Rule Out 03/18/2024 03/18/2024 03/18/2024 8:30 PM CDT COVID-19 Rule Out 05/27/2024 05/27/202405/2705/27/2024 7:16 PM CDT documented as of this encounter Care Teams Locomotive Engineer Relationship Specialty Start Date End Date Tutu Hill MD [address] [facility] [address] [place] [address] PCP - General FAMILY PRACTICE 08/09/18 03/19/20 Ary Rubalcava NP [address] [facility] [address] [place] [address] PCP - General Nurse Practitioner Family 03/20/2003/05 None, MD Santana PCP - General 03/25/20 05/14/20 [place] [address] [place] [address] PCP - General FAMILY PRACTICE 05/15/20 documented as of this encounter
--- OUTSIDE RECORDS SUMMARY | 2025-04-23 11:13 | XMS_ITS | Encounter Summary ---
Author Organization [facility] Address [address] [place] [address] Care Team Providers Care Campaign Manager Name Role Phone Nestor Fletcher MD Primary Care Provider [phone] Encounter Details Date Type Department Care Team (Late st Contact Info) Description 01/13/2022 LaraPharmt Message Enc [facility] Medical Group Multispecialty Care - [facility] [address] [facility] [place] [phone] Pura Velazquez APRN [address] [facility] [address] [place] [address] PT Social History Tobacco Use Types Packs/Day [...] Sex Assigned at Female 10/30/2019 8:35 AM FINISH PAINTER Legal Sex Female 10:55 PM CDT Gender Identity Female 10/30/2019 8:35 AM FINISH PAINTER Sexual Orientation Straight 10/30/2019 8: 35 AM FINISH PAINTER COVID-19 Exposure Response Date Recorded In the [...] st Contact Info) Description 08/26/2025 9:00 AM FINISH PAINTER Office Visit [facility] Medical Group Multispecialty Care - [facility] [address] [place] [address] Francisco Levi DO [address] [place] [address] documented as of this encounter Visit Diagnoses Not on filedocumented in this encounter Additional Health Concerns Infection Onset Date Last Indicated Resolved Time COVID-19 Rule Out 05/20/2023 05/20/2023 05/20/2023 6:44 PM CDT COVID-19 Rule Out 09/11/2023 09/11/2023 09/11/2023 10:29 AM FINISH PAINTER COVID-19 Rule Out 03/18/2024 03/18/2024 03/18/2024 8:30 PM CDT COVID-19 Rule Out 05/27/2024 05/27/2024 05/27/2024 7:16 PM CDT Assessment Noted Time PHQ-9 Depression Total Score: 0 08/24/20 21 2:19 PM FINISH PAINTER documented as of this encounter Care Teams Campaign Manager Relationship Specialty [place] [address] [place] [address] PCP - General FAMILY PRACTICE 05/15/20 documented as of this encounter
--- OUTSIDE RECORDS SUMMARY | 2025-04-23 11:13 | XMS_ITS | Encounter Summary ---
Author Organization [facility] Address [address] [place] [address] Care Team Providers Care Director Data Analytics Name Role Phone Nestor Fletcher MD Primary Care Provider [phone] Encounter Details Date Type Department Care Team (Late st Contact Info) Description 12/17/[address] [employer] [address] [facility] Family & Internal Medicine [address] [address] Nestor Fletcher MD [address] [place] [address] Question regarding TSH W/REFLEX Social History [...] Assigned at Female 10/30/2019 8:35 AM BODY STYLIST Legal Sex Female 10:55 PM CDT Gender Identity Female 10/30/2019 8:35 AM BODY STYLIST Sexual Orientation Straight 10/30/2019 8: 35 AM BODY STYLIST COVID-19 Exposure Response Date Recorded In the [...] Contact Info) Description 08/26/2025 9:00 AM BODY STYLIST Office Visit [facility] Multispecialty Care - [facility] [address] [place] [phone] Francisco Levi DO [address] [facility] [address] [place] [address] documented as of this encounter Visit Diagnoses Not on filedocumented in this encounter Additional Health Concerns Infection Onset Date Last Indicated Resolved Time COVID-19 Rule Out 05/20/2023 05/20/2023 05/20/2023 6:44 PM CDT COVID-19 Rule Out 09/11/2023 09/11/2023 09/11/2023 10:29 AM BODY STYLIST COVID-19 Rule Out 03/18/2024 03/18/2024 03/18/2024 8:30 PM CDT COVID-19 Rule Out 05/27/2024 05/27/2024 05/27/2024 7:16 PM CDT Assessment Noted Time PHQ-9 Depression Total Score: 0 08/24/20 21 2:19 PM BODY STYLIST documented as of this encounter Care Teams Director Data Analytics Relationship Specialty [place] [address] [place] [address] PCP - General FAMILY PRACTICE 05/15/20 documented as of this encounter
--- OUTSIDE RECORDS SUMMARY | 2025-04-23 11:13 | XMS_ITS | Encounter Summary ---
Author Organization [facility] Address [address] [place] [address] Care Team Providers Care Topology Teacher Name Role Phone Nestor Fletcher MD Primary Care Provider [phone] Encounter Details Date Type Department Care Team (Late st Contact Info) Description 12/26/2021 Datoramat Message [facility] - [facility] [address] [facility], [address] [place] [phone] Pura Velazquez APRN [address] [facility] [address] [place] [address] Massage Social History Tobacco Use Types Packs/Day [...] Sex Assigned at Female 10/30/2019 8:35 AM FILL MANAGER Legal Sex Female 10:55 PM CDT Gender Identity Female 10/30/2019 8:35 AM FILL MANAGER Sexual Orientation Straight 10/30/2019 8: 35 AM FILL MANAGER COVID-19 Exposure Response Date Recorded In [...] st Contact Info) Description 08/26/2025 9:00 AM FILL MANAGER [facility] [address] [place] [address] Francisco Levi DO [address] [facility] [address] [place] [address] documented as of this encounter Visit Diagnoses Not on filedocumented in this encounter Additional Health Concerns Infection Onset Date Last Indicated Resolved Time COVID-19 Rule Out 05/20/2023 05/20/2023 05/20/2023 6:44 PM CDT COVID-19 Rule Out 09/11/2023 09/11/2023 09/11/2023 10:29 AM FILL MANAGER COVID-19 Rule Out 03/18/2024 03/18/2024 03/18/2024 8:30 PM CDT COVID-19 Rule Out 05/27/2024 05/27/2024 05/27/2024 7:16 PM CDT Assessment Noted Time PHQ-9 Depression Total Score: 0 08/24/20 21 2:19 PM FILL MANAGER documented as of this encounter Care Teams Topology Teacher Relationship Specialty [place] [address] [place] [address] PCP - General FAMILY PRACTICE 05/15/20 documented as of this encounter
--- OUTSIDE RECORDS SUMMARY | 2025-04-23 11:13 | XMS_ITS | Encounter Summary ---
Author Organization [facility] Address [address] [place] [address] Care Team Providers Care Data Warehouse Analyst Name Role Phone Nestor Fletcher MD Primary Care Provider [phone] Encounter Details Date Type Department Care Team (Late st Contact Info) Description 02/14/2022 Tap.Me Message [facility] [address] Angelica Archer, GRAB DRIVER [address] [address] Sleep Social History Tobacco Use [...] Sex Assigned at Female 10/30/2019 8:35 AM CARTON MARKER MACHINE Legal Sex Female 10:55 PM CDT Gender Identity Female 10/30/2019 8:35 AM CARTON MARKER MACHINE Sexual Orientation Straight 10/30/2019 8: 35 AM CARTON MARKER MACHINE COVID-19 Exposure Response Date Recorded In [...] st Contact Info) Description 08/26/2025 9:00 AM CARTON MARKER MACHINE Office Visit [facility] Multispecialty Care - [facility] [address] [facility] [address] [place] [phone] Francisco Levi DO [address] [facility] [address] [place] [address] documented as of this encounter Visit Diagnoses Not on filedocumented in this encounter Additional Health Concerns Infection Onset Date Last Indicated Resolved Time COVID-19 Rule Out 05/20/2023 05/20/2023 05/20/2023 6:44 PM CDT COVID-19 Rule Out 09/11/2023 09/11/2023 09/11/2023 10:29 AM CARTON MARKER MACHINE COVID-19 Rule Out 03/18/2024 03/18/2024 03/18/2024 8:30 PM CDT COVID-19 Rule Out 05/27/2024 05/27/2024 05/27/2024 7:16 PM CDT Assessment Noted Time PHQ-9 Depression Total Score: 0 08/24/20 21 2:19 PM CARTON MARKER MACHINE documented as of this encounter Care Teams Data Warehouse Analyst Relationship Specialty [place] [address] [place] [address] PCP - General FAMILY PRACTICE 05/15/20 documented as of this encounter
--- OUTSIDE RECORDS SUMMARY | 2025-04-23 11:13 | XMS_ITS | Encounter Summary ---
Author Organization [facility] Address [address] [place] [address] Care Team Providers Care Planting Material Remover Name Role Phone Nestor Fletcher MD Primary Care Provider [phone] Encounter Details Date Type Department Care Team (Latest Contact Info) Description 01/27/2022 Paystikt Message Enc [facility] Multispecialty Care - [facility] [address] [facility], [address] [place] [phone] Pura Velazquez APRN 3 [facility] [address] [place] [address] C-spine.injections Social History Tobacco Use Types Packs/Day [...] Sex Assigned at Female 10/30/2019 8:35 AM FASHION CONSULTANT SALES Legal Sex Female 10:55 PM CDT Gender Identity Female 10/30/2019 8:35 AM FASHION CONSULTANT SALES Sexual Orientation Straight 10/30/2019 8: 35 AM FASHION CONSULTANT SALES COVID-19 Exposure Response Date Recorded In the [...] st Contact Info) Description 08/26/2025 9:00 AM FASHION CONSULTANT SALES Office Visit [facility] Mult[facility]pecialty Care - [facility] [address] [facility] [place] [address] Franicsco Levi, [address] [facility] [address] [place] [address] documented as of this encounter Visit Diagnoses Not on filedocumented in this encounter Additional Health Concerns Infection Onset Date Last Indicated Resolved Time COVID-19 Rule Out 05/20/2023 05/20/2023 05/20/2023 6:44 PM CDT COVID-19 Rule Out 09/11/2023 09/11/2023 09/11/2023 10:29 AM FASHION CONSULTANT SALES COVID-19 Rule Out 03/18/2024 03/18/2024 03/18/2024 8:30 PM CDT COVID-19 Rule Out 05/27/2024 05/27/2024 05/27/2024 7:16 PM CDT Assessment Noted Time PHQ-9 Depression Total Score: 0 08/24/20 21 2:19 PM FASHION CONSULTANT SALES documented as of this encounter Care Teams Planting Material Remover Relationship Specialty [place] [address] [place] [address] PCP - General FAMILY PRACTICE 05/15/20 documented as of this encounter
--- OUTSIDE RECORDS SUMMARY | 2025-04-23 11:13 | XMS_ITS | Encounter Summary ---
Author Organization [facility] Address [address] [place] [address] Care Team Providers Care Histology Technician Name Role Phone Nestor Fletcher MD Primary Care Provider [phone] Encounter Details Date Type Department Care Team (Late st Contact Info) Description 09/19/2024 Ozmott Message Enc [facility] Family & Internal Medicine [address] [address] Nestor Fletcher MD [address] [place] [address] Illness Social History Tobacco Use Types [...] Sex Assigned at Female 10/30/2019 8:35 AM LOCOMOTIVE OBSERVER Legal Sex Female 10:55 PM CDT Gender Identity Female 10/30/2019 8:35 AM LOCOMOTIVE OBSERVER Sexual Orientation Straight 10/30/2019 8: 35 AM LOCOMOTIVE OBSERVER documented as of this encounter Functional Status [...] st Contact Info) Description 08/26/2025 9:00 AM LOCOMOTIVE OBSERVER Office Visit [facility] Multispecialty Care - [facility] [address] [place] [address] Francisco Levi, [address] [facility] [address] [place] [address] documented as of this encounter Goals Goal [...] documented as of this encounter Care Teams Histology Technician Relationship Specialty [place] [address] [place] [address] PCP - General FAMILY PRACTICE 05/15/20 documented as of this encounter
--- OUTSIDE RECORDS SUMMARY | 2025-04-23 11:13 | XMS_ITS | Encounter Summary ---
Author Organization [facility] Address [address] [place] [address] Care Team Providers Care Inhalation Therapy Teacher Name Role Phone Nestor Fletcher MD Primary Care Provider [phone] Encounter Details Date Type Department Care Team (Late st Contact Info) Description 02/25/2022 Oncoscope Message Enc [facility] Family & Internal Medicine [address] [address] Nestor Fletcher MD [address] [place] [address] Meds Social History Tobacco Use Types [...] Sex Assigned at Female 10/30/2019 8:35 AM SHANK BREAKER Legal Sex Female 10:55 PM CDT Gender Identity Female 10/30/2019 8:35 AM SHANK BREAKER Sexual Orientation Straight 10/30/2019 8: 35 AM SHANK BREAKER COVID-19 Exposure Response Date Recorded In the [...] st Contact Info) Description 08/26/2025 9:00 AM SHANK BREAKER Office Visit [facility] Multispecialty Care - [facility] [address] [facility] [address] [place] [phone] Francisco Levi DO [address] [facility] [address] [place] [address] documented as of this encounter Visit Diagnoses Not on filedocumented in this encounter Additional Health Concerns Infection Onset Date Last Indicated Resolved Time COVID-19 Rule Out 05/20/2023 05/20/2023 05/20/2023 6:44 PM CDT COVID-19 Rule Out 09/11/2023 09/11/2023 09/11/2023 10:29 AM SHANK BREAKER COVID-19 Rule Out 03/18/2024 03/18/2024 03/18/2024 8:30 PM CDT COVID-19 Rule Out 05/27/2024 05/27/2024 05/27/2024 7:16 PM CDT Assessment Noted Time PHQ-9 Depression Total Score: 0 02/26/20 22 9:40 AM CDT documented as of this encounter Care Teams Inhalation Therapy Teacher Relationship Specialty [place] [address] [place] [address] PCP - General FAMILY PRACTICE 05/15/20 documented as of this encounter
--- OUTSIDE RECORDS SUMMARY | 2025-04-23 11:13 | XMS_ITS | Encounter Summary ---
Author Organization [facility] Address [address] [place] [address] Care Team Providers Care Hollow Core Door Frame Assembler Name Role Phone Nestor Fletcher MD Primary Care Provider [phone] Encounter Details Date Type Department Care Team (Late st Contact Info) Description 02/17/2022 Adly Message Enc [facility] [address] [place] [address] Carlos A Ocasio, DPBrinda [address] [place] [address] Surgery Social History Tobacco Use Types [...] Sex Assigned at Female 10/30/2019 8:35 AM WRAPPER OFF Legal Sex Female 10:55 PM CDT Gender Identity Female 10/30/2019 8:35 AM WRAPPER OFF Sexual Orientation Straight 10/30/2019 8: 35 AM WRAPPER OFF COVID-19 Exposure Response Date Recorded In the [...] st Contact Info) Description 08/26/2025 9:00 AM WRAPPER OFF Office Visit [facility]pecialty Care - [facility] [address] [facility] [facility] [address] [place] [phone] Francisco Levi DO [address] [facility] [address] [place] [address] documented as of this encounter Visit Diagnoses Not on filedocumented in this encounter Additional Health Concerns Infection Onset Date Last Indicated Resolved Time COVID-19 Rule Out 05/20/2023 05/20/2023 05/20/2023 6:44 PM CDT COVID-19 Rule Out 09/11/2023 09/11/2023 09/11/2023 10:29 AM WRAPPER OFF COVID-19 Rule Out 03/18/2024 03/18/2024 03/18/2024 8:30 PM CDT COVID-19 Rule Out 05/27/2024 05/27/2024 05/27/2024 7:16 PM CDT Assessment Noted Time PHQ-9 Depression Total Score: 0 08/24/20 21 2:19 PM WRAPPER OFF documented as of this encounter Care Teams Hollow Core Door Frame Assembler Relationship Specialty [place] [address] [place] [address] PCP - General FAMILY PRACTICE 05/15/20 documented as of this encounter
--- OUTSIDE RECORDS SUMMARY | 2025-04-23 11:14 | XMS_ITS | Encounter Summary ---
Author Organization [facility] Address [facility] [place] [address] Care Team Providers Care Urgent Care Physician Name Role Phone Tutu Hill MD Primary Care Provider + BremertonAry caldera NP Primary Care Provider + None, Provider Primary Care Provider Nestor Ma MD Primary Care Provider [phone] Encounter Details Date Type Department Care Team (Late st Contact Info) Description 01/21/2016 Abstract [facility] Tutu Hill MD [address] [address] Social History Tobacco Use Types Packs/Day Years Used Date Smoking Tobacco: Never Assessed Comments Unknown Sex and Gender Information Value Date Recorded Sex Assigned at Female 10/30/2019 8:35 AM FORENSIC DNA ANALYST Legal Sex Female 10:55 PM CDT Gender Identity Female 10/30/2019 8:35 AM FORENSIC DNA ANALYST Sexual Orientation Straight 10/30/2019 8: 35 AM FORENSIC DNA ANALYST documented as of this encounter Miscellaneous Notes * Letter - Tutu Hill MD - 01/21/2016 12:00 AM CDT January 21, 2016 Renu Marquez [address] [place] [address] Dear Renu Marquez, Thank you for choosing [facility] for your health care needs. We appreciate the opportunity to help you maintain your well being. You recently had your well woman exam and the results are back. Your mammogram results came back normal. Please remember to follow up next year at this time for your annual exam. If you have any questions please feel free to call the office at [phone], Option #3 or Options #1 to make an appointment to discuss these results. Respectfully Yours, Electronically Signed by: Tutu Hill MD Cc: Patient?s Medical Record NSIC DNA ANALYST documented in this encounter Plan of Treatment Upcoming Encounters Date Type Department Care Team (Late st Contact Info) Description 08/26/2025 9:00 AM FORENSIC DNA ANALYST Office Visit [facility] Multispecialty Care - [facility] [address] [facility] [address] [place] [address] Francisco Levi DO [address] [facility] [address] [place] [address] documented as of this encounter Visit Diagnoses [...] Out 07/06/2020 07/06/2020 07/08/2020 11:00 PM FORENSIC DNA ANALYST COVID-19 Rule Out 07/09/2020 07/09/2020 07/12/2020 10:16 AM FORENSIC DNA ANALYST COVID-19 Rule Out 11/14/2020 11/14/2020 11/15/2020 10:25 AM CDT COVID-19 Rule Out 01/05/2021 01/05/2021 01/05/2021 5:26 PM CDT COVID-19 Rule Out 12/02/2021 12/02/2021 12/02/2021 4:28 PM CDT COVID-19 Rule Out 05/20/2023 05/20/2023 05/20/2023 6:44 PM CDT COVID-19 Rule Out 09/11/2023 09/11/2023 09/11/2023 10:29 AM FORENSIC DNA ANALYST COVID-19 Rule Out 03/18/2024 03/18/2024 03/18/2024 8:30 PM CDT COVID-19 Rule Out 05/27/2024 05/27/2024 05/27/2024 7:16 PM CDT documented as of this encounter Care Teams Urgent Care Physician Relationship Specialty Start Date End Date Tutu Hill MD [address] [facility] [address] [place] [phone] PCP - General FAMILY PRACTICE 08/09/18 03/19/20 Ary Rubalcava NP [address] [facility] [address] [place] [address] PCP - General Nurse Practitioner Family 03/20/2003/05 None, MD Santana PCP - General 03/25/20 05/14/20 [place] [address] [place] [address] PCP - General FAMILY PRACTICE 05/15/20 documented as of this encounter
--- OUTSIDE RECORDS SUMMARY | 2025-04-23 11:14 | XMS_ITS | Encounter Summary ---
Author Organization [facility] Address [address] [place] [address] Care Team Providers Care Superintendent [employer] Name Role Phone Nestor Fletcher MD Primary Care Provider [phone] Encounter Details Date Type Department Care Team (Late st Contact Info) Description 06/16/2022 Nexalogy Message Enc [facility] Medical Group Multispecialty Care - [facility] [address] [facility], [address] [place] [phone] Pura Velazquez APRN 3 [facility] [address] [place] [address] Questions Social History Tobacco Use Types Packs/Day [...] Sex Assigned at Female 10/30/2019 8:35 AM LUGGAGE LINER Legal Sex Female 10:55 PM CDT Gender Identity Female 10/30/2019 8:35 AM LUGGAGE LINER Sexual Orientation Straight 10/30/2019 8: 35 AM LUGGAGE LINER COVID-19 Exposure Response Date Recorded In the [...] st Contact Info) Description 08/26/2025 9:00 AM LUGGAGE LINER Office Visit [facility] Medical Group Multispecialty Care - [facility] [address] [place] [address] Francisco Levi DO [address] [place] [address] documented as of this encounter Goals Goal [...] Rule Out 09/11/2023 09/11/2023 09/11/2023 10:29 AM LUGGAGE LINER COVID-19 Rule Out 03/18/2024 03/18/2024 03/18/2024 8:30 PM CDT COVID-19 Rule Out 05/27/2024 05/27/2024 05/27/2024 7:16 PM CDT Assessment Noted Time PHQ-9 Depression Total Score: 0 02/26/20 9:40 AM CDT documented as of this encounter Care Teams Superintendent [employer] Relationship Specialty [place] [address] [place] [address] PCP - General FAMILY PRACTICE 05/15/20 documented as of this encounter
--- OUTSIDE RECORDS SUMMARY | 2025-04-23 11:14 | XMS_ITS | Encounter Summary ---
Author Organization [facility] Address [address] [place] [address] Care Team Providers Care Director Of Marketing Communications Name Role Phone Nestor Fletcher MD Primary Care Provider [phone] Encounter Details Date Type Department Care Team (Late st Contact Info) Description 06/14/2022 Uniquedu Message Enc [facility] Medical Group Multispecialty Care - [facility] [address] [facility], [address] [place] [phone] Pura Velazquez APRN [address] [facility] [address] [place] [address] Update Social History Tobacco Use Types Packs/Day [...] Sex Assigned at Female 10/30/2019 8:35 AM LAND SURVEYOR MANAGER Legal Sex Female 10:55 PM CDT Gender Identity Female 10/30/2019 8:35 AM LAND SURVEYOR MANAGER Sexual Orientation Straight 10/30/2019 8: 35 AM LAND SURVEYOR MANAGER COVID-19 Exposure Response Date Recorded In [...] st Contact Info) Description 08/26/2025 9:00 AM LAND SURVEYOR MANAGER Office Visit [facility] Medical Group Multispecialty Care - [facility] [address] [place] [address] Francisco Levi, [address] [facility] [address] [place] [address] documented as of this encounter Goals Goal [...] Rule Out 09/11/2023 09/11/2023 09/11/2023 10:29 AM LAND SURVEYOR MANAGER COVID-19 Rule Out 03/18/2024 03/18/2024 03/18/2024 8:30 PM CDT COVID-19 Rule Out 05/27/2024 05/27/2024 05/27/2024 7:16 PM CDT Assessment Noted Time PHQ-9 Depression Total Score: 0 02/26/20 22 9:40 AM CDT documented as of this encounter Care Teams Director Of Marketing Communications Relationship Specialty [place] [address] [place] [address] PCP - General FAMILY PRACTICE 05/15/20 documented as of this encounter
--- OUTSIDE RECORDS SUMMARY | 2025-04-23 11:14 | XMS_ITS | Encounter Summary ---
Author Organization [facility] Address [facility] [place] [address] Care Team Providers Care Frog Catcher Name Role Phone Tutu Hill MD Primary Care Provider + RaleighAry NP Primary Care Provider + None, Provider Primary Care Provider Nestor Ma MD Primary Care Provider [phone] Encounter Details Date Type Department Care Team (Late st Contact Info) Description 06/27/2008 Abstract [facility] Conversion , Generic Conversion, Social History Tobacco Use Types Packs/Day Years Used Date Smoking Tobacco: Never Assessed Comments Unknown Sex and Gender Information Value Date Recorded Sex Assigned at Female 10/30/2019 8:35 AM TURBINE INSPECTOR Legal Sex Female 10:55 PM CDT Gender Identity Female 10/30/2019 8:35 AM TURBINE INSPECTOR Sexual Orientation Straight 10/30/2019 8: 35 AM TURBINE INSPECTOR documented as of this encounter Plan of Treatment Upcoming Encounters Date Type Department Care Team (Late st Contact Info) Description 08/26/2025 9:00 AM TURBINE INSPECTOR Office Visit [facility] Medical Group Multispecialty Care - [facility] [address] [place] [address] Francisco Levi DO [address] [facility] [address] [place] [address] [phone] (work) documented as of this encounter Visit [...] Rule Out 07/06/2020 07/06/2020 07/08/2020 11:00 PM TURBINE INSPECTOR COVID-19 Rule Out 07/09/2020 07/09/2020 07/12/2020 10:16 AM TURBINE INSPECTOR COVID-19 Rule Out 11/14/2020 11/14/2020 11/15/2020 10:25 AM CDT COVID-19 Rule Out 01/05/2021 01/05/2021 01/05/2021 5:26 PM CDT COVID-19 Rule Out 12/02/2021 12/02/2021 12/02/2021 4:28 PM CDT COVID-19 Rule Out 05/20/2023 05/20/2023 05/20/2023 6:44 PM CDT COVID-19 Rule Out 09/11/2023 09/11/2023 09/11/2023 10:29 AM TURBINE INSPECTOR COVID-19 Rule Out 03/18/2024 03/18/2024 03/18/2024 8:30 PM CDT COVID-19 Rule Out 05/27/2024 05/27/202405/2705/27/2024 7:16 PM CDT documented as of this encounter Care Teams Frog Catcher Relationship Specialty Start Date End Date Tutu Hill MD [address] [facility] [address] [place] [address] PCP - General FAMILY PRACTICE 08/09/18 03/19/20 Ary Rubalcava NP [address] [facility] [address] [place] [address] PCP - General Nurse Practitioner Family 03/20/2003/05 None, MD Santana PCP - General 03/25/20 05/14/20 [place] [address] [place] [address] PCP - General FAMILY PRACTICE 05/15/20 documented as of this encounter
--- OUTSIDE RECORDS SUMMARY | 2025-04-23 11:14 | XMS_ITS | Encounter Summary ---
Author Organization [facility] Address [facility] [place] [address] Care Team Providers Care Lens Blank Gauger Name Role Phone Tutu Hill MD Primary Care Provider + CincinnatirAy NP Primary Care Provider + None, Provider Primary Care Provider Nestor Ma MD Primary Care Provider [phone] Encounter Details Date Type Department Care Team (Latest Contact Info) Description 07/10/2018 Abstract [facility] Medical Group Mago French MD Social History Tobacco Use Types Packs/Day Years Used Date Smoking Tobacco: Never Assessed Comments Unknown Sex and Gender Information Value Date Recorded Sex Assigned at Female 10/30/2019 8:35 AM EMT/PARAMEDIC Legal Sex Female 10:55 PM CDT Gender Identity Female 10/30/2019 8:35 AM EMT/PARAMEDIC Sexual Orientation Straight 10/30/2019 8: 35 AM EMT/PARAMEDIC documented as of this encounter Plan of Treatment Upcoming Encounters Date Type Department Care Team (Late st Contact Info) Description 08/26/2025 9:00 AM EMT/PARAMEDIC Office Visit [facility] Medical Group Multispecialty Care - [facility] [address] [place] [address] Francisco Levi DO [address] [place] [address] documented as of this encounter Visit Diagnoses [...] Rule Out 07/06/2020 07/06/2020 07/08/2020 11:00 PM EMT/PARAMEDIC COVID-19 Rule Out 07/09/2020 07/09/2020 07/12/2020 10:16 AM EMT/PARAMEDIC COVID-19 Rule Out 11/14/2020 11/14/2020 11/15/2020 10:25 AM CDT COVID-19 Rule Out 01/05/2021 01/05/2021 01/05/2021 5:26 PM CDT COVID-19 Rule Out 12/02/2021 12/02/2021 12/02/2021 4:28 PM CDT COVID-19 Rule Out 05/20/2023 05/20/2023 05/20/2023 6:44 PM CDT COVID-19 Rule Out 09/11/2023 09/11/2023 09/11/2023 10:29 AM EMT/PARAMEDIC COVID-19 Rule Out 03/18/2024 03/18/2024 03/18/2024 8:30 PM CDT COVID-19 Rule Out 05/27/2024 05/27/2024 05/27/2024 7:16 PM CDT documented as of this encounter Care Teams Lens Blank Gauger Relationship Specialty Start Date End Date Tutu Hill MD [address] [facility] [address] [place] [address] PCP - General FAMILY PRACTICE 08/09/18 03/19/20 Ary Rubalcava NP [address] [facility] [address] [place] [address] PCP - General Nurse Practitioner Family 03/20/2003/05 None, MD Santana PCP - General 03/25/20 05/14/20 [place] [address] [place] [address] PCP - General FAMILY PRACTICE 05/15/20 documented as of this encounter
--- OUTSIDE RECORDS SUMMARY | 2025-04-23 11:14 | XMS_ITS | Encounter Summary ---
Author Organization [facility] Address [address] [place] [address] Care Team Providers Care Network/Telecom Engineer Name Role Phone None, Provider Primary Care Provider Nestor Ma MD Primary Care Provider [phone] Encounter Details Date Type Department Care Team (Late st Contact Info) Description 04/21/2020 Oriel [employer] Message Enc [facility] Medical Group Family & Internal Medicine [facility] [address] [place] [address] Nestor Fletcher MD [address] [place] [address] RE: Question Social History Tobacco Use [...] Assigned at Female 10/30/2019 8:35 AM SPECIAL EDUCATION DIRECTOR Legal Sex Female 10:55 PM CDT Gender Identity Female 10/30/2019 8:35 AM SPECIAL EDUCATION DIRECTOR Sexual Orientation Straight 10/30/2019 8: 35 AM SPECIAL EDUCATION DIRECTOR COVID-19 Exposure Response Date Recorded In [...] st Contact Info) Description 08/26/2025 9:00 AM SPECIAL EDUCATION DIRECTOR Office Visit [facility] Medical Group Multispecialty Care - [facility] [address] [place] [phone] Francisco Levi DO [address] [place] [address] documented as of this encounter Visit Diagnoses Not on filedocumented in this encounter Additional Health Concerns Infection Onset Date Last Indicated Resolved Time COVID-19 Rule Out 05/15/2020 05/15/2020 05/16/2020 8:21 PM CDT COVID-19 Rule Out 05/25/2020 05/25/2020 05/27/2020 12:21 AM CDT COVID-19 Rule Out 06/26/2020 06/26/2020 06/27/2020 4:51 PM CDT COVID-19 Rule Out 07/06/2020 07/06/2020 07/08/2020 11:00 PM SPECIAL EDUCATION DIRECTOR COVID-19 Rule Out 07/09/2020 07/09/2020 07/12/2020 10:16 AM SPECIAL EDUCATION DIRECTOR COVID-19 Rule Out 11/14/2020 11/14/2020 11/15/2020 10:25 AM CDT COVID-19 Rule Out 01/05/2021 01/05/2021 01/05/2021 5:26 PM CDT COVID-19 Rule Out 12/02/2021 12/02/2021 12/02/2021 4:28 PM CDT COVID-19 Rule Out 05/20/2023 05/20/2023 05/20/2023 6:44 PM CDT COVID-19 Rule Out 09/11/2023 09/11/2023 09/11/2023 10:29 AM SPECIAL EDUCATION DIRECTOR COVID-19 Rule Out 03/18/2024 03/18/2024 03/18/2024 8:30 PM CDT COVID-19 Rule Out 05/27/2024 05/27/2024 05/27/2024 7:16 PM CDT documented as of this encounter Care Teams Network/Telecom Engineer Relationship Specialty Start Date End Date None, Provider, PCP - General 03/25/20 05/14/20 [place] [address] [place] [address] PCP - General FAMILY PRACTICE 05/15/20 documented as of this encounter
--- OUTSIDE RECORDS SUMMARY | 2025-04-23 11:14 | XMS_ITS | Encounter Summary ---
Author Organization [facility] Address [address] [place] [address] Care Team Providers Care Cartridge Maker Name Role Phone None, Provider Primary Care Provider Nestor Ma MD Primary Care Provider [phone] Encounter Details Date Type Department Care Team (Late st Contact Info) Description 03/28/2020 Thinkspeed Message [facility] [address] [place] [address] Tutu Hill MD [address] [facility] [address] [place] [address] Other Social History Tobacco Use [...] Assigned at Female 10/30/2019 8:35 AM SAND SYSTEM OPERATOR Legal Sex Female 10:55 PM CDT Gender Identity Female 10/30/2019 8:35 AM SAND SYSTEM OPERATOR Sexual Orientation Straight 10/30/2019 8: 35 AM SAND SYSTEM OPERATOR COVID-19 Exposure Response Date Recorded [...] she did find a new doctor in [place]. documented in this encounter Plan of Treatment Upcoming Encounters Date Type Department Care Team (Late st Contact Info) Description 08/26/2025 9:00 AM SAND SYSTEM OPERATOR Office Visit [facility] Medical Group Multispecialty Care - [facility] [address] [place] [address] Francisco Levi DO [address] [place] [address] documented as of this encounter Visit Diagnoses Not on filedocumented in this encounter Additional Health Concerns Infection Onset Date Last Indicated Resolved Time COVID-19 Rule Out 05/15/2020 05/15/2020 05/16/2020 8:21 PM CDT COVID-19 Rule Out 05/25/2020 05/25/2020 05/27/2020 12:21 AM CDT COVID-19 Rule Out 06/26/2020 06/26/2020 06/27/2020 4:51 PM CDT COVID-19 Rule Out 07/06/2020 07/06/2020 07/08/2020 11:00 PM SAND SYSTEM OPERATOR COVID-19 Rule Out 07/09/2020 07/09/2020 07/12/2020 10:16 AM SAND SYSTEM OPERATOR COVID-19 Rule Out 11/14/2020 11/14/2020 11/15/2020 10:25 AM CDT COVID-19 Rule Out 01/05/2021 01/05/2021 01/05/2021 5:26 PM CDT COVID-19 Rule Out 12/02/2021 12/02/2021 12/02/2021 4:28 PM CDT COVID-19 Rule Out 05/20/2023 05/20/2023 05/20/2023 6:44 PM CDT COVID-19 Rule Out 09/11/2023 09/11/2023 09/11/2023 10:29 AM SAND SYSTEM OPERATOR COVID-19 Rule Out 03/18/2024 03/18/2024 03/18/2024 8:30 PM CDT COVID-19 Rule Out 05/27/2024 05/27/2024 05/27/2024 7:16 PM CDT documented as of this encounter Care Teams Cartridge Maker Relationship Specialty Start Date End Date None, Provider, PCP - General 03/25/20 05/14/20 [place] [address] [place] [address] PCP - General FAMILY PRACTICE 05/15/20 documented as of this encounter
--- OUTSIDE RECORDS SUMMARY | 2025-04-23 11:14 | XMS_ITS | Encounter Summary ---
Author Organization [facility] Address [address] [place] [address] Care Team Providers Care Grounds Maintenance Manager Name Role Phone Nestor Fletcher MD Primary Care Provider [phone] Encounter Details Date Type Department Care Team (Late st Contact Info) Description 05/17/[address] [facility] Medical Group Multispecialty Care - [facility] [address] [place] [phone] Francisco Levi DO [address] [facility] [address] [place] [address] Low oxygen Social History Tobacco Use Types [...] Assigned at Female 10/30/2019 8:35 AM SUPERVISOR BLAST FURNACE Legal Sex Female 10:55 PM CDT Gender Identity Female 10/30/2019 8:35 AM SUPERVISOR BLAST FURNACE Sexual Orientation Straight 10/30/2019 8: 35 AM SUPERVISOR BLAST FURNACE COVID-19 Exposure Response Date Recorded In the [...] st Contact Info) Description 08/26/2025 9:00 AM SUPERVISOR BLAST FURNACE Office Visit [facility] Medical Group Multispecialty Care - [facility] [address] [place] [address] Francisco Levi, [address] [facility] [address] [place] [address] documented as of this encounter Visit Diagnoses Not on filedocumented in this encounter Additional Health Concerns Infection Onset Date Last Indicated Resolved Time COVID-19 Rule Out 05/20/2023 05/20/2023 05/20/2023 6:44 PM CDT COVID-19 Rule Out 09/11/2023 09/11/2023 09/11/2023 10:29 AM SUPERVISOR BLAST FURNACE COVID-19 Rule Out 03/18/2024 03/18/2024 03/18/2024 8:30 PM CDT COVID-19 Rule Out 05/27/2024 05/27/2024 05/27/2024 7:16 PM CDT Assessment Noted Time PHQ-9 Depression Total Score: 0 02/26/20 22 9:40 AM CDT documented as of this encounter Care Teams Grounds Maintenance Manager Relationship Specialty [place] [address] [place] [address] PCP - General FAMILY PRACTICE 05/15/20 documented as of this encounter
--- OUTSIDE RECORDS SUMMARY | 2025-04-23 11:14 | XMS_ITS | Encounter Summary ---
Author Organization [facility] Address [address] [place] [address] Care Team Providers Care Feeder/Folder Name Role Phone Nestor Fletcher MD Primary Care Provider [phone] Encounter Details Date Type Department Care Team (Late st Contact Info) Description 06/22/2022 ServiceMaster Home Service Centert Message Enc [facility] Medical Group Multispecialty Care - [facility] [address] [facility] [place] [address] Pura Velazquez APRN [address] [facility] [address] [place] [address] Cancelled appt Social History Tobacco Use Types [...] Sex Assigned at Female 10/30/2019 8:35 AM BEEF CATTLE SPECIALIST Legal Sex Female 10:55 PM CDT Gender Identity Female 10/30/2019 8:35 AM BEEF CATTLE SPECIALIST Sexual Orientation Straight 10/30/2019 8: 35 AM BEEF CATTLE SPECIALIST COVID-19 Exposure Response Date Recorded In [...] st Contact Info) Description 08/26/2025 9:00 AM BEEF CATTLE SPECIALIST Office Visit [facility] Medical Group Multispecialty Care - [facility] [address] [place] [address] Francisco Levi, [address] [place] [address] documented as of this encounter Goals Goal [...] Rule Out 09/11/2023 09/11/2023 09/11/2023 10:29 AM BEEF CATTLE SPECIALIST COVID-19 Rule Out 03/18/2024 03/18/2024 03/18/2024 8:30 PM CDT COVID-19 Rule Out 05/27/2024 05/27/2024 05/27/2024 7:16 PM CDT Assessment Noted Time PHQ-9 Depression Total Score: 0 02/26/20 22 9:40 AM CDT documented as of this encounter Care Teams Feeder/Folder Relationship Specialty [place] [address] [place] [address] PCP - General FAMILY PRACTICE 05/15/20 documented as of this encounter
--- OUTSIDE RECORDS SUMMARY | 2025-04-23 11:14 | XMS_ITS | Encounter Summary ---
Author Organization [facility] Address [facility] [place] [address] Care Team Providers Care Operator Electronic Warfare Name Role Phone Tutu Hill MD Primary Care Provider + HutchinsonAry caldera NP Primary Care Provider + None, Provider Primary Care Provider Nestor Ma MD Primary Care Provider [phone] Encounter Details Date Type Department Care Team (Late st Contact Info) Description 05/14/2018 Abstract [facility] Tutu iHll MD [address] [address] Social History Tobacco Use Types Packs/Day Years Used Date Smoking Tobacco: Never Assessed Comments Unknown Sex and Gender Information Value Date Recorded Sex Assigned at Female 10/30/2019 8:35 AM MUSEUM EXHIBIT DESIGNER Legal Sex Female 10:55 PM CDT Gender Identity Female 10/30/2019 8:35 AM MUSEUM EXHIBIT DESIGNER Sexual Orientation Straight 10/30/2019 8: 35 AM MUSEUM EXHIBIT DESIGNER documented as of this encounter Miscellaneous Notes * Letter - Tutu Hill MD - 05/14/2018 12:00 AM CDT May 14, 2018 Renu Marquez [address] [place] [address] Dear Renu Marquez, Thank you for choosing [...] feel free to call the office at [phone], Option #3 or Option #1 to make an appointment to discuss these results. Respectfully Yours, Electronically Signed by: Tutu Hill MD Cc: Patients Medical Record UM EXHIBIT DESIGNER documented in this encounter Plan of Treatment Upcoming Encounters Date Type Department Care Team (Late st Contact Info) Description 08/26/2025 9:00 AM MUSEUM EXHIBIT DESIGNER Office Visit [facility] Medical Group Multispecialty Care - [facility] [address] [place] [address] Francisco Levi DO [address] [facility] [address] [place] [address] documented as of this encounter Visit Diagnoses [...] Rule Out 07/06/2020 07/06/2020 07/08/2020 11:00 PM MUSEUM EXHIBIT DESIGNER COVID-19 Rule Out 07/09/2020 07/09/2020 07/12/2020 10:16 AM MUSEUM EXHIBIT DESIGNER COVID-19 Rule Out 11/14/2020 11/14/2020 11/15/2020 10:25 AM CDT COVID-19 Rule Out 01/05/2021 01/05/2021 01/05/2021 5:26 PM CDT COVID-19 Rule Out 12/02/2021 12/02/2021 12/02/2021 4:28 PM CDT COVID-19 Rule Out 05/20/2023 05/20/2023 05/20/2023 6:44 PM CDT COVID-19 Rule Out 09/11/2023 09/11/2023 09/11/2023 10:29 AM MUSEUM EXHIBIT DESIGNER COVID-19 Rule Out 03/18/2024 03/18/2024 03/18/2024 8:30 PM CDT COVID-19 Rule Out 05/27/2024 05/27/2024 05/27/2024 7:16 PM CDT documented as of this encounter Care Teams Operator Electronic Warfare Relationship Specialty Start Date End Date Tutu Hill MD [address] [facility] [address] [place] [address] PCP - General FAMILY PRACTICE 08/09/18 03/19/20 Ary Rubalcava NP [address] [facility] [address] [place] [address] PCP - General Nurse Practitioner Family 03/20/2003/05 None, MD Santana PCP - General 03/25/20 05/14/20 [place] [address] [facility] [place] [address] PCP - General FAMILY PRACTICE 05/15/20 documented as of this encounter
--- OUTSIDE RECORDS SUMMARY | 2025-04-23 11:14 | XMS_ITS | Encounter Summary ---
Author Organization [facility] Address [address] [place] [address] Care Team Providers Care Trip Follower Name Role Phone Nestor Fletcher MD Primary Care Provider [phone] Encounter Details Date Type Department Care Team (Late st Contact Info) Description 03/14/2022 Fastacash Message Enc [facility] Medical Group Foot & Ankle Specialists [facility] [address] [place] [address] Carlos A Ocasio, DPBrinda [address] [place] [phone] Referral Social History Tobacco Use Types [...] Assigned at Female 10/30/2019 8:35 AM STRAIGHT TRUCK DRIVER Legal Sex Female 10:55 PM CDT Gender Identity Female 10/30/2019 8:35 AM STRAIGHT TRUCK DRIVER Sexual Orientation Straight 10/30/2019 8: 35 AM STRAIGHT TRUCK DRIVER COVID-19 Exposure Response Date Recorded In [...] st Contact Info) Description 08/26/2025 9:00 AM STRAIGHT TRUCK DRIVER Office Visit [facility] Medical Group Multispecialty Care - [facility] [address] [facility] [facility] [address] [place] [address] Francisco Levi DO [address] [facility] [address] [place] [address] documented as of this encounter Visit Diagnoses Not on filedocumented in this encounter Additional Health Concerns Infection Onset Date Last Indicated Resolved Time COVID-19 Rule Out 05/20/2023 05/20/2023 05/20/2023 6:44 PM CDT COVID-19 Rule Out 09/11/2023 09/11/2023 09/11/2023 10:29 AM STRAIGHT TRUCK DRIVER COVID-19 Rule Out 03/18/2024 03/18/2024 03/18/2024 8:30 PM CDT COVID-19 Rule Out 05/27/2024 05/27/2024 05/27/2024 7:16 PM CDT Assessment Noted Time PHQ-9 Depression Total Score: 0 02/26/20 22 9:40 AM CDT documented as of this encounter Care Teams Trip Follower Relationship Specialty [place] [address] [place] [address] PCP - General FAMILY PRACTICE 05/15/20 documented as of this encounter
--- OUTSIDE RECORDS SUMMARY | 2025-04-23 11:14 | XMS_ITS | Encounter Summary ---
Author Organization [facility] Address [address] [place] [address] Care Team Providers Care Beverage Server Name Role Phone Nestor Fletcher MD Primary Care Provider [phone] Encounter Details Date Type Department Care Team (Late st Contact Info) Description 03/11/2022 Donate Your Desktop Message Enc [facility] Medical Group Family & Internal Medicine [facility] [address] [place] [address] Natali Polo APNP [address] [facility] [address] [place] [address] Moiz Social History Tobacco Use Types [...] Sex Assigned at Female 10/30/2019 8:35 AM FOOD BAGGING MACHINE OPERATOR Legal Sex Female 10:55 PM CDT Gender Identity Female 10/30/2019 8:35 AM FOOD BAGGING MACHINE OPERATOR Sexual Orientation Straight 10/30/2019 8: 35 AM FOOD BAGGING MACHINE OPERATOR COVID-19 Exposure Response Date Recorded [...] st Contact Info) Description 08/26/2025 9:00 AM FOOD BAGGING MACHINE OPERATOR Office Visit [facility] Medical Group Multispecialty Care - [address] [place] [address] Francisco Levi DO [address] [facility] [address] [place] [address] documented as of this encounter Visit Diagnoses Not on filedocumented in this encounter Additional Health Concerns Infection Onset Date Last Indicated Resolved Time COVID-19 Rule Out 05/20/2023 05/20/2023 05/20/2023 6:44 PM CDT COVID-19 Rule Out 09/11/2023 09/11/2023 09/11/2023 10:29 AM FOOD BAGGING MACHINE OPERATOR COVID-19 Rule Out 03/18/2024 03/18/2024 03/18/2024 8:30 PM CDT COVID-19 Rule Out 05/27/2024 05/27/2024 05/27/2024 7:16 PM CDT Assessment Noted Time PHQ-9 Depression Total Score: 0 02/26/20 22 9:40 AM CDT documented as of this encounter Care Teams Beverage Server Relationship Specialty [place] [address] [place] [address] PCP - General FAMILY PRACTICE 05/15/20 documented as of this encounter
--- OUTSIDE RECORDS SUMMARY | 2025-04-23 11:14 | XMS_ITS | Encounter Summary ---
Author Organization [facility] Address [address] [place] [address] Care Team Providers Care Flow Floor Attendant Name Role Phone Nestor Fletcher MD Primary Care Provider [phone] Encounter Details Date Type Department Care Team (Late st Contact Info) Description 04/01/2022 [employer] Message Enc [facility] Medical Group Foot & Ankle Specialists [facility] [address] [place] [address] Carlos A Ocasio, DPBrinda [address] [place] [phone] Question Social History Tobacco Use Types [...] Sex Assigned at Female 10/30/2019 8:35 AM FINISHING ROOM OPERATOR Legal Sex Female 10:55 PM CDT Gender Identity Female 10/30/2019 8:35 AM FINISHING ROOM OPERATOR Sexual Orientation Straight 10/30/2019 8: 35 AM FINISHING ROOM OPERATOR COVID-19 Exposure Response Date Recorded In [...] st Contact Info) Description 08/26/2025 9:00 AM FINISHING ROOM OPERATOR Office Visit [facility] Medical Group Multispecialty Care - [address] [place] [address] Francisco Levi DO [address] [facility] [address] [place] [address] documented as of this encounter Visit Diagnoses Not on filedocumented in this encounter Additional Health Concerns Infection Onset Date Last Indicated Resolved Time COVID-19 Rule Out 05/20/2023 05/20/2023 05/20/2023 6:44 PM CDT COVID-19 Rule Out 09/11/2023 09/11/2023 09/11/2023 10:29 AM FINISHING ROOM OPERATOR COVID-19 Rule Out 03/18/2024 03/18/2024 03/18/2024 8:30 PM CDT COVID-19 Rule Out 05/27/2024 05/27/2024 05/27/2024 7:16 PM CDT Assessment Noted Time PHQ-9 Depression Total Score: 0 02/26/20 22 9:40 AM CDT documented as of this encounter Care Teams Flow Floor Attendant Relationship Specialty [place] [address] [place] [address] PCP - General FAMILY PRACTICE 05/15/20 documented as of this encounter
--- OUTSIDE RECORDS SUMMARY | 2025-04-23 11:14 | XMS_ITS | Encounter Summary ---
Author Organization [facility] Address [address] [place] [address] Care Team Providers Care [employer] Wireman Name Role Phone Nestor Fletcher MD Primary Care Provider [phone] Encounter Details Date Type Department Care Team (Late st Contact Info) Description 06/29/2022 [email or web address] Message Enc [facility] Medical Group Family & Internal Medicine [address] [address] Nestor Fletcher MD [address] [place] [address] Back pain Social History Tobacco Use [...] Sex Assigned at Female 10/30/2019 8:35 AM E MARKETING SPECIALIST Legal Sex Female 10:55 PM CDT Gender Identity Female 10/30/2019 8:35 AM E MARKETING SPECIALIST Sexual Orientation Straight 10/30/2019 8: 35 AM E MARKETING SPECIALIST COVID-19 Exposure Response Date Recorded In [...] st Contact Info) Description 08/26/2025 9:00 AM E MARKETING SPECIALIST Office Visit [facility] Medical Group Multispecialty Care - [facility] [address] [facility] [address] [place] [phone] Francisco Levi, [address] [facility] [address] [place] [address] documented as of this encounter Goals Goal [...] Rule Out 09/11/2023 09/11/2023 09/11/2023 10:29 AM E MARKETING SPECIALIST COVID-19 Rule Out 03/18/2024 03/18/2024 03/18/2024 8:30 PM CDT COVID-19 Rule Out 05/27/2024 05/27/2024 05/27/2024 7:16 PM CDT Assessment Noted Time PHQ-9 Depression Total Score: 0 02/26/20 22 9:40 AM CDT documented as of this encounter Care Teams X [employer] Wireman Relationship Specialty [place] [address] [place] [address] PCP - General FAMILY PRACTICE 05/15/20 documented as of this encounter
--- OUTSIDE RECORDS SUMMARY | 2025-04-23 11:14 | XMS_ITS | Encounter Summary ---
Author Organization [facility] Address [address] [place] [address] Care Team Providers Care Thoracic Medicine Specialist Name Role Phone None, Provider Primary Care Provider Nestor Ma MD Primary Care Provider [phone] Encounter Details Date Type Department Care Team (Late st Contact Info) Description 04/30/2020 [employer] Message Enc [facility] Medical Group Family & Internal Medicine [facility] [address] [place] [address] [place] [id number] [place] [address] Question Social History Tobacco Use Types [...] Sex Assigned at Female 10/30/2019 8:35 AM CARTOGRAPHIC ENGINEER Legal Sex Female 10:55 PM CDT Gender Identity Female 10/30/2019 8:35 AM CARTOGRAPHIC ENGINEER Sexual Orientation Straight 10/30/2019 8: 35 AM CARTOGRAPHIC ENGINEER COVID-19 Exposure Response Date Recorded In [...] st Contact Info) Description 08/26/2025 9:00 AM CARTOGRAPHIC ENGINEER Office Visit [facility] Medical Group Multispecialty Care - [facility] [address] [place] [address] Francisco Levi DO [address] [place] [address] documented as of this encounter Visit Diagnoses Not on filedocumented in this encounter Additional Health Concerns Infection Onset Date Last Indicated Resolved Time COVID-19 Rule Out 05/15/2020 05/15/2020 05/16/2020 8:21 PM CDT COVID-19 Rule Out 05/25/2020 05/25/2020 05/27/2020 12:21 AM CDT COVID-19 Rule Out 06/26/2020 06/26/2020 06/27/2020 4:51 PM CDT COVID-19 Rule Out 07/06/2020 07/06/2020 07/08/2020 11:00 PM CARTOGRAPHIC ENGINEER COVID-19 Rule Out 07/09/2020 07/09/2020 07/12/2020 10:16 AM CARTOGRAPHIC ENGINEER COVID-19 Rule Out 11/14/2020 11/14/2020 11/15/2020 10:25 AM CDT COVID-19 Rule Out 01/05/2021 01/05/2021 01/05/2021 5:26 PM CDT COVID-19 Rule Out 12/02/2021 12/02/2021 12/02/2021 4:28 PM CDT COVID-19 Rule Out 05/20/2023 05/20/2023 05/20/2023 6:44 PM CDT COVID-19 Rule Out 09/11/2023 09/11/2023 09/11/2023 10:29 AM CARTOGRAPHIC ENGINEER COVID-19 Rule Out 03/18/2024 03/18/2024 03/18/2024 8:30 PM CDT COVID-19 Rule Out 05/27/2024 05/27/2024 05/27/2024 7:16 PM CDT documented as of this encounter Care Teams Thoracic Medicine Specialist Relationship Specialty Start Date End Date None, Provider, PCP - General 03/25/20 05/14/20 [place] [address] [place] [address] PCP - General FAMILY PRACTICE 05/15/20 documented as of this encounter
--- OUTSIDE RECORDS SUMMARY | 2025-04-23 11:14 | XMS_ITS | Encounter Summary ---
Author Organization [facility] Address [address] [place] [address] Care Team Providers Care Fashion Designer Name Role Phone Nestor Fletcher MD Primary Care Provider [phone] Encounter Details Date Type Department Care Team (Latest Contact Info) Description 06/08/2022 [facility] Message Enc [facility] Medical Group Multispecialty Care - [facility] [address] [place] [address] Francisco Levi DO [address] [facility] [address] [place] [address] Nebulizer tubing Social History Tobacco Use Types [...] Assigned at Female 10/30/2019 8:35 AM COMMERCIAL HVAC SERVICE TECHNICIAN Legal Sex Female 10:55 PM CDT Gender Identity Female 10/30/2019 8:35 AM COMMERCIAL HVAC SERVICE TECHNICIAN Sexual Orientation Straight 10/30/2019 8: 35 AM COMMERCIAL HVAC SERVICE TECHNICIAN COVID-19 Exposure Response Date Recorded In [...] st Contact Info) Description 08/26/2025 9:00 AM COMMERCIAL HVAC SERVICE TECHNICIAN Office Visit [facility] Medical Group Multispecialty Care - [facility] [address] [facility] [place] [address] Francisco Levi, [address] [facility] [address] [place] [address] documented as of this encounter Goals Goal [...] Out 09/11/2023 09/11/2023 09/11/2023 10:29 AM COMMERCIAL HVAC SERVICE TECHNICIAN COVID-19 Rule Out 03/18/2024 03/18/2024 03/18/2024 8:30 PM CDT COVID-19 Rule Out 05/27/2024 05/27/2024 05/27/2024 7:16 PM CDT Assessment Noted Time PHQ-9 Depression Total Score: 0 02/26/20 22 9:40 AM CDT documented as of this encounter Care Teams Fashion Designer Relationship Specialty [place] [address] [place] [address] PCP - General FAMILY PRACTICE 05/15/20 documented as of this encounter
--- OUTSIDE RECORDS SUMMARY | 2025-04-23 11:14 | XMS_ITS | Encounter Summary ---
Author Organization [facility] Address [address] [place] [address] Care Team Providers Care Ramp Lead Name Role Phone Nestor Fletcher MD Primary Care Provider [phone] Encounter Details Date Type Department Care Team (Latest Contact Info) Description 06/15/2022 [facility] Message Enc [facility] Medical Group Multispecialty Care - [facility] [address] [facility] [address] [facility] [place] [address] Pura Velazquez APRN [address] [facility] [address] [address] [place] [address] Question regarding XR CERV SPINE AP+LAT 2V [...] Sex Assigned at Female 10/30/2019 8:35 AM MAP COMPILER Legal Sex Female 10:55 PM CDT Gender Identity Female 10/30/2019 8:35 AM MAP COMPILER Sexual Orientation Straight 10/30/2019 8: 35 AM MAP COMPILER COVID-19 Exposure Response Date Recorded In the [...] st Contact Info) Description 08/26/2025 9:00 AM MAP COMPILER Office Visit [facility] Medical Group Multispecialty Care - [facility] [address] [place] [address] Francisco Levi, [address] [place] [address] documented as of this encounter Goals Goal [...] Rule Out 09/11/2023 09/11/2023 09/11/2023 10:29 AM MAP COMPILER COVID-19 Rule Out 03/18/2024 03/18/2024 03/18/2024 8:30 PM CDT COVID-19 Rule Out 05/27/2024 05/27/2024 05/27/2024 7:16 PM CDT Assessment Noted Time PHQ-9 Depression Total Score: 0 02/26/20 22 9:40 AM CDT documented as of this encounter Care Teams Ramp Lead Relationship Specialty [place] [address] [place] [address] PCP - General FAMILY PRACTICE 05/15/20 documented as of this encounter
--- OUTSIDE RECORDS SUMMARY | 2025-04-23 11:14 | XMS_ITS | Encounter Summary ---
Author Organization [facility] Address [address] [place] [address] Care Team Providers Care Anatomy Teacher Name Role Phone Nestor Fletcher MD Primary Care Provider [phone] Encounter Details Date Type Department Care Team (Late st Contact Info) Description 03/18/2022 [place] [employer] Message Enc [facility] Medical Group Family & Internal Medicine [facility] [address] [place] [address] Natali Polo APNP [address] [facility] [address] [place] [address] Shot record Social History Tobacco Use [...] Assigned at Female 10/30/2019 8:35 AM ASSISTANT PROFESSOR OF BIOCHEMISTRY Legal Sex Female 10:55 PM CDT Gender Identity Female 10/30/2019 8:35 AM ASSISTANT PROFESSOR OF BIOCHEMISTRY Sexual Orientation Straight 10/30/2019 8: 35 AM ASSISTANT PROFESSOR OF BIOCHEMISTRY COVID-19 Exposure Response Date Recorded In the [...] st Contact Info) Description 08/26/2025 9:00 AM ASSISTANT PROFESSOR OF BIOCHEMISTRY Office Visit [facility] Medical Group Multispecialty Care - [facility] [address] [place] [phone] Francisco Levi DO [address] [place] [address] documented as of this encounter Visit Diagnoses Not on filedocumented in this encounter Additional Health Concerns Infection Onset Date Last Indicated Resolved Time COVID-19 Rule Out 05/20/2023 05/20/2023 05/20/2023 6:44 PM CDT COVID-19 Rule Out 09/11/2023 09/11/2023 09/11/2023 10:29 AM ASSISTANT PROFESSOR OF BIOCHEMISTRY COVID-19 Rule Out 03/18/2024 03/18/2024 03/18/2024 8:30 PM CDT COVID-19 Rule Out 05/27/2024 05/27/2024 05/27/2024 7:16 PM CDT Assessment Noted Time PHQ-9 Depression Total Score: 0 02/26/20 22 9:40 AM CDT documented as of this encounter Care Teams Anatomy Teacher Relationship Specialty [place] [address] [place] [address] PCP - General FAMILY PRACTICE 05/15/20 documented as of this encounter
--- OUTSIDE RECORDS SUMMARY | 2025-04-23 11:14 | XMS_ITS | Encounter Summary ---
Author Organization [facility] Address [facility] [place] [address] Care Team Providers Care Tool Repair Technician Name Role Phone None, Provider Primary Care Provider Nestor Ma MD Primary Care Provider [phone] Encounter Details Date Type Department Care Team (Late st Contact Info) Description 03/26/2020 [facility] AT [address] [address] Cullen Sprague MD [address] [address] Test Results Social History Tobacco [...] Sex Assigned at Female 10/30/2019 8:35 AM SHUTTLE OPERATOR Legal Sex Female 10:55 PM CDT Gender Identity Female 10/30/2019 8:35 AM SHUTTLE OPERATOR Sexual Orientation Straight 10/30/2019 8: 35 AM SHUTTLE OPERATOR COVID-19 Exposure Response Date Recorded In [...] st Contact Info) Description 08/26/2025 9:00 AM SHUTTLE OPERATOR Office Visit [facility] Medical Group Multispecialty Care - [facility] [address] [place] [phone] Francisco Levi DO [address] [facility] [address] [place] [address] documented as of this encounter Visit Diagnoses Not on filedocumented in this encounter Additional Health Concerns Infection Onset Date Last Indicated Resolved Time COVID-19 Rule Out 05/15/2020 05/15/2020 05/16/2020 8:21 PM CDT COVID-19 Rule Out 05/25/2020 05/25/2020 05/27/2020 12:21 AM CDT COVID-19 Rule Out 06/26/2020 06/26/2020 06/27/2020 4:51 PM CDT COVID-19 Rule Out 07/06/2020 07/06/2020 07/08/2020 11:00 PM SHUTTLE OPERATOR COVID-19 Rule Out 07/09/2020 07/09/2020 07/12/2020 10:16 AM SHUTTLE OPERATOR COVID-19 Rule Out 11/14/2020 11/14/2020 11/15/2020 10:25 AM CDT COVID-19 Rule Out 01/05/2021 01/05/2021 01/05/2021 5:26 PM CDT COVID-19 Rule Out 12/02/2021 12/02/2021 12/02/2021 4:28 PM CDT COVID-19 Rule Out 05/20/2023 05/20/2023 05/20/2023 6:44 PM CDT COVID-19 Rule Out 09/11/2023 09/11/2023 09/11/2023 10:29 AM SHUTTLE OPERATOR COVID-19 Rule Out 03/18/2024 03/18/2024 03/18/2024 8:30 PM CDT COVID-19 Rule Out 05/27/2024 05/27/2024 05/27/2024 7:16 PM CDT documented as of this encounter Care Teams Tool Repair Technician Relationship Specialty Start Date End Date None, Provider, PCP - General 03/25/20 05/14/20 [place] [address] [place] [address] PCP - General FAMILY PRACTICE 05/15/20 documented as of this encounter
--- OUTSIDE RECORDS SUMMARY | 2025-04-23 11:14 | XMS_ITS | Encounter Summary ---
Author Organization [facility] Address [address] [place] [address] Care Team Providers Care Conductor/Brakeman Name Role Phone None, Provider Primary Care Provider Nestor Ma MD Primary Care Provider [phone] Encounter Details Date Type Department Care Team (Late st Contact Info) Description 04/21/2020 [employer] Message Enc [facility] Medical Group General Surgery - [place] [address] [facility], [address] [place] [address] [place] [address] [place], [place] [address]e [facility] [address] [place] [address] RE: Follow Up/Update Social History Tobacco Use [...] Assigned at Female 10/30/2019 8:35 AM CHROME POLISHER Legal Sex Female 10:55 PM CDT Gender Identity Female 10/30/2019 8:35 AM CHROME POLISHER Sexual Orientation Straight 10/30/2019 8: 35 AM CHROME POLISHER COVID-19 Exposure Response Date Recorded In the [...] st Contact Info) Description 08/26/2025 9:00 AM CHROME POLISHER Office Visit [facility] Medical Group Multispecialty Care - [facility] [address] [place] [phone] Francisco Levi DO [address] [facility] [address] [place] [address] documented as of this encounter Visit Diagnoses Not on filedocumented in this encounter Additional Health Concerns Infection Onset Date Last Indicated Resolved Time COVID-19 Rule Out 05/15/2020 05/15/2020 05/16/2020 8:21 PM CDT COVID-19 Rule Out 05/25/2020 05/25/2020 05/27/2020 12:21 AM CDT COVID-19 Rule Out 06/26/2020 06/26/2020 06/27/2020 4:51 PM CDT COVID-19 Rule Out 07/06/2020 07/06/2020 07/08/2020 11:00 PM CHROME POLISHER COVID-19 Rule Out 07/09/2020 07/09/2020 07/12/2020 10:16 AM CHROME POLISHER COVID-19 Rule Out 11/14/2020 11/14/2020 11/15/2020 10:25 AM CDT COVID-19 Rule Out 01/05/2021 01/05/2021 01/05/2021 5:26 PM CDT COVID-19 Rule Out 12/02/2021 12/02/2021 12/02/2021 4:28 PM CDT COVID-19 Rule Out 05/20/2023 05/20/2023 05/20/2023 6:44 PM CDT COVID-19 Rule Out 09/11/2023 09/11/2023 09/11/2023 10:29 AM CHROME POLISHER COVID-19 Rule Out 03/18/2024 03/18/2024 03/18/2024 8:30 PM CDT COVID-19 Rule Out 05/27/2024 05/27/2024 05/27/2024 7:16 PM CDT documented as of this encounter Care Teams Conductor/Brakeman Relationship Specialty Start Date End Date None, Provider, PCP - General 03/25/20 05/14/20 [place] [address] [place] [address] PCP - General FAMILY PRACTICE 05/15/20 documented as of this encounter
--- OUTSIDE RECORDS SUMMARY | 2025-04-23 11:14 | XMS_ITS | Encounter Summary ---
Author Organization [facility] Address [address] [place] [address] Care Team Providers Care Practice Advisor Name Role Phone Nestor Fletcher MD Primary Care Provider [phone] Encounter Details Date Type Department Care Team (Late st Contact Info) Description 05/19/2022 [employer] Message Enc [facility] Medical Group Family & Internal Medicine [facility] [address] [place] [address] Natali Polo, WILLY [address] [facility] [address] [place] [address] Alex Social History Tobacco Use Types [...] Sex Assigned at Female 10/30/2019 8:35 AM FAMILY LAW PARALEGAL Legal Sex Female 10:55 PM CDT Gender Identity Female 10/30/2019 8:35 AM FAMILY LAW PARALEGAL Sexual Orientation Straight 10/30/2019 8: 35 AM FAMILY LAW PARALEGAL COVID-19 Exposure Response Date Recorded In the [...] st Contact Info) Description 08/26/2025 9:00 AM FAMILY LAW PARALEGAL Office Visit [facility] Medical Group Multispecialty Care - [address] [place] [address] Francisco Levi, DO [address] [place] [address] documented as of this encounter Visit Diagnoses Not on filedocumented in this encounter Additional Health Concerns Infection Onset Date Last Indicated Resolved Time COVID-19 Rule Out 05/20/2023 05/20/2023 05/20/2023 6:44 PM CDT COVID-19 Rule Out 09/11/2023 09/11/2023 09/11/2023 10:29 AM FAMILY LAW PARALEGAL COVID-19 Rule Out 03/18/2024 03/18/2024 03/18/2024 8:30 PM CDT COVID-19 Rule Out 05/27/2024 05/27/2024 05/27/2024 7:16 PM CDT Assessment Noted Time PHQ-9 Depression Total Score: 0 02/26/20 22 9:40 AM CDT documented as of this encounter Care Teams Practice Advisor Relationship Specialty [place] [address] [place] [address] PCP - General FAMILY PRACTICE 05/15/20 documented as of this encounter
--- OUTSIDE RECORDS SUMMARY | 2025-04-23 11:14 | XMS_ITS | Encounter Summary ---
Author Organization [facility] Address [address] [place] [address] Care Team Providers Care Arresting Gear Operator Name Role Phone None, Provider Primary Care Provider Nestor Ma MD Primary Care Provider [phone] Encounter Details Date Type Department Care Team (Late st Contact Info) Description 04/27/2020 [employer] Message Enc [facility] Medical Group Multispecialty Care - [facility] [address] [facility], [address] [place] [address] Tae Narvaez MD Question Social [...] Sex Assigned at Female 10/30/2019 8:35 AM RADIOLOGIC TECHNOLOGY TEACHER Legal Sex Female 10:55 PM CDT Gender Identity Female 10/30/2019 8:35 AM RADIOLOGIC TECHNOLOGY TEACHER Sexual Orientation Straight 10/30/2019 8: 35 AM RADIOLOGIC TECHNOLOGY TEACHER COVID-19 Exposure Response Date Recorded In the [...] st Contact Info) Description 08/26/2025 9:00 AM RADIOLOGIC TECHNOLOGY TEACHER Office Visit [facility] Medical Group [facility] [address] [place] [phone] Francisco Levi DO [address] [place] [address] documented as of this encounter Visit Diagnoses Not on filedocumented in this encounter Additional Health Concerns Infection Onset Date Last Indicated Resolved Time COVID-19 Rule Out 05/15/2020 05/15/2020 05/16/2020 8:21 PM CDT COVID-19 Rule Out 05/25/2020 05/25/2020 05/27/2020 12:21 AM CDT COVID-19 Rule Out 06/26/2020 06/26/2020 06/27/2020 4:51 PM CDT COVID-19 Rule Out 07/06/2020 07/06/2020 07/08/2020 11:00 PM RADIOLOGIC TECHNOLOGY TEACHER COVID-19 Rule Out 07/09/2020 07/09/2020 07/12/2020 10:16 AM RADIOLOGIC TECHNOLOGY TEACHER COVID-19 Rule Out 11/14/2020 11/14/2020 11/15/2020 10:25 AM CDT COVID-19 Rule Out 01/05/2021 01/05/2021 01/05/2021 5:26 PM CDT COVID-19 Rule Out 12/02/2021 12/02/2021 12/02/2021 4:28 PM CDT COVID-19 Rule Out 05/20/2023 05/20/2023 05/20/2023 6:44 PM CDT COVID-19 Rule Out 09/11/2023 09/11/2023 09/11/2023 10:29 AM RADIOLOGIC TECHNOLOGY TEACHER COVID-19 Rule Out 03/18/2024 03/18/2024 03/18/2024 8:30 PM CDT COVID-19 Rule Out 05/27/2024 05/27/2024 05/27/2024 7:16 PM CDT documented as of this encounter Care Teams Arresting Gear Operator Relationship Specialty Start Date End Date None, Provider, PCP - General 03/25/20 05/14/20 [place] [address] [place] [address] PCP - General FAMILY PRACTICE 05/15/20 documented as of this encounter
--- OUTSIDE RECORDS SUMMARY | 2025-04-23 11:14 | XMS_ITS | Encounter Summary ---
Author Organization [facility] Address [facility] [place] [address] Care Team Providers Care Therapeutic Riding Instructor Name Role Phone Tutu Hill MD Primary Care Provider + SeabeckAry NP Primary Care Provider + None, Provider Primary Care Provider Nestor Ma MD Primary Care Provider [phone] Encounter Details Date Type Department Care Team (Late st Contact Info) Description 02/14/2010 [facility] Conversion , Generic Conversion, Social History Tobacco Use Types Packs/Day Years Used Date Smoking Tobacco: Never Assessed Comments Unknown Sex and Gender Information Value Date Recorded Sex Assigned at Female 10/30/2019 8:35 AM PALEONTOLOGY TEACHER Legal Sex Female 10:55 PM CDT Gender Identity Female 10/30/2019 8:35 AM PALEONTOLOGY TEACHER Sexual Orientation Straight 10/30/2019 8: 35 AM PALEONTOLOGY TEACHER documented as of this encounter Plan of Treatment Upcoming Encounters Date Type Department Care Team (Late st Contact Info) Description 08/26/2025 9:00 AM PALEONTOLOGY TEACHER Office Visit [facility] Medical Group Multispecialty Care - [facility] [address] [place] [address] Francisco Levi DO [address] [facility] [address] [place] [address] [phone] (work) documented as of this encounter Visit [...] Rule Out 07/06/2020 07/06/2020 07/08/2020 11:00 PM PALEONTOLOGY TEACHER COVID-19 Rule Out 07/09/2020 07/09/2020 07/12/2020 10:16 AM PALEONTOLOGY TEACHER COVID-19 Rule Out 11/14/2020 11/14/2020 11/15/2020 10:25 AM CDT COVID-19 Rule Out 01/05/2021 01/05/2021 01/05/2021 5:26 PM CDT COVID-19 Rule Out 12/02/2021 12/02/2021 12/02/2021 4:28 PM CDT COVID-19 Rule Out 05/20/2023 05/20/2023 05/20/2023 6:44 PM CDT COVID-19 Rule Out 09/11/2023 09/11/2023 09/11/2023 10:29 AM PALEONTOLOGY TEACHER COVID-19 Rule Out 03/18/2024 03/18/2024 03/18/2024 8:30 PM CDT COVID-19 Rule Out 05/27/2024 05/27/202405/2705/27/2024 7:16 PM CDT documented as of this encounter Care Teams Therapeutic Riding Instructor Relationship Specialty Start Date End Date Tutu Hill MD [address] [facility] [address] [place] [address] PCP - General FAMILY PRACTICE 08/09/18 03/19/20 Ary Rubalcava NP [address] [facility] [address] [place] [address] PCP - General Nurse Practitioner Family 03/20/2003/05 None, MD Santana PCP - General 03/25/20 05/14/20 [place] [address] [place] [address] PCP - General FAMILY PRACTICE 05/15/20 documented as of this encounter
--- OUTSIDE RECORDS SUMMARY | 2025-04-23 11:14 | XMS_ITS | Encounter Summary ---
Author Organization [facility] Address [address] [place] [address] Care Team Providers Care Trust Mail Clerk Name Role Phone Nestor Fletcher MD Primary Care Provider [phone] Encounter Details Date Type Department Care Team (Late st Contact Info) Description 03/01/[address] Message Enc [facility] Medical Group Foot & Ankle Specialists [facility] [address] [place] [address] Carlos A Ocasio, DPBrinda [address] [place] [phone] Surgery Social History Tobacco Use Types [...] Assigned at Female 10/30/2019 8:35 AM CRUSHER Legal Sex Female 10:55 PM CDT Gender Identity Female 10/30/2019 8:35 AM CRUSHER Sexual Orientation Straight 10/30/2019 8: 35 AM CRUSHER COVID-19 Exposure Response Date Recorded In the [...] st Contact Info) Description 08/26/2025 9:00 AM CRUSHER Office Visit [facility] Medical Group Multispecialty Care - [facility] [address] [place] [phone] Francisco Levi DO [address] [facility] [address] [place] [address] documented as of this encounter Visit Diagnoses Not on filedocumented in this encounter Additional Health Concerns Infection Onset Date Last Indicated Resolved Time COVID-19 Rule Out 05/20/2023 05/20/2023 05/20/2023 6:44 PM CDT COVID-19 Rule Out 09/11/2023 09/11/2023 09/11/2023 10:29 AM CRUSHER COVID-19 Rule Out 03/18/2024 03/18/2024 03/18/2024 8:30 PM CDT COVID-19 Rule Out 05/27/2024 05/27/2024 05/27/2024 7:16 PM CDT Assessment Noted Time PHQ-9 Depression Total Score: 0 02/26/20 22 9:40 AM CDT documented as of this encounter Care Teams Trust Mail Clerk Relationship Specialty [place] [address] [place] [address] PCP - General FAMILY PRACTICE 05/15/20 documented as of this encounter
--- OUTSIDE RECORDS SUMMARY | 2025-04-23 11:14 | XMS_ITS | Encounter Summary ---
Author Organization [facility] Address [address] [place] [address] Care Team Providers Care Merchant Banker Name Role Phone Nestor Fletcher MD Primary Care Provider [phone] Encounter Details Date Type Department Care Team (Late st Contact Info) Description 03/23/2022 Listen Edition Message Enc [facility] Family & Internal Medicine [address] [address] Nestor Fletcher MD [address] [place] [address] Pain management Social History Tobacco Use [...] Sex Assigned at Female 10/30/2019 8:35 AM SALES SERVICE COORDINATOR Legal Sex Female 10:55 PM CDT Gender Identity Female 10/30/2019 8:35 AM SALES SERVICE COORDINATOR Sexual Orientation Straight 10/30/2019 8: 35 AM SALES SERVICE COORDINATOR COVID-19 Exposure Response Date Recorded In [...] Status No 03/31/2020 2:12 AM CDT Kelly Hyaes RN Active * Because of a physical, [...] st Contact Info) Description 08/26/2025 9:00 AM SALES SERVICE COORDINATOR Office Visit [facility] Multispecialty Care - [facility] [address] [place] [phone] Francisco Levi DO [address] [place] [address] documented as of this encounter Visit Diagnoses Not on filedocumented in this encounter Additional Health Concerns Infection Onset Date Last Indicated Resolved Time COVID-19 Rule Out 05/20/2023 05/20/2023 05/20/2023 6:44 PM CDT COVID-19 Rule Out 09/11/2023 09/11/2023 09/11/2023 10:29 AM SALES SERVICE COORDINATOR COVID-19 Rule Out 03/18/2024 03/18/2024 03/18/2024 8:30 PM CDT COVID-19 Rule Out 05/27/2024 05/27/2024 05/27/2024 7:16 PM CDT Assessment Noted Time PHQ-9 Depression Total Score: 0 02/26/20 22 9:40 AM CDT documented as of this encounter Care Teams Merchant Banker Relationship Specialty [place] [address] [place] [address] PCP - General FAMILY PRACTICE 05/15/20 documented as of this encounter
--- OUTSIDE RECORDS SUMMARY | 2025-04-23 11:14 | XMS_ITS | Encounter Summary ---
Author Organization [facility] Address [address] [place] [address] Care Team Providers Care Laboratory Chemical Assistant Name Role Phone Nestor Fletcher MD Primary Care Provider [phone] Encounter Details Date Type Department Care Team (Late st Contact Info) Description 02/28/2022 [employer] Message Enc [facility] Multispecialty Care - [facility] [address] [facility], [address] [place] [phone] Pura Velazquez APRN [address] [facility] [address] [place] [address] Appt Social History Tobacco Use Types Packs/Day [...] Sex Assigned at Female 10/30/2019 8:35 AM FILTER FILLER Legal Sex Female 10:55 PM CDT Gender Identity Female 10/30/2019 8:35 AM FILTER FILLER Sexual Orientation Straight 10/30/2019 8: 35 AM FILTER FILLER COVID-19 Exposure Response Date Recorded In the [...] st Contact Info) Description 08/26/2025 9:00 AM FILTER FILLER Office Visit [facility] Multispecialty Care - [facility] [address] [facility] [address] [place] [address] Francisco Levi, [address] [facility] [address] [place] [address] documented as of this encounter Visit Diagnoses Not on filedocumented in this encounter Additional Health Concerns Infection Onset Date Last Indicated Resolved Time COVID-19 Rule Out 05/20/2023 05/20/2023 05/20/2023 6:44 PM CDT COVID-19 Rule Out 09/11/2023 09/11/2023 09/11/2023 10:29 AM FILTER FILLER COVID-19 Rule Out 03/18/2024 03/18/2024 03/18/2024 8:30 PM CDT COVID-19 Rule Out 05/27/2024 05/27/2024 05/27/2024 7:16 PM CDT Assessment Noted Time PHQ-9 Depression Total Score: 0 02/26/20 22 9:40 AM CDT documented as of this encounter Care Teams Laboratory Chemical Assistant Relationship Specialty [place] [address] [place] [address] PCP - General FAMILY PRACTICE 05/15/20 documented as of this encounter
--- OUTSIDE RECORDS SUMMARY | 2025-04-23 11:14 | XMS_ITS | Encounter Summary ---
Author Organization [facility] Address [address] [place] [address] Care Team Providers Care Tube Closing Machine Operator Name Role Phone None, Provider Primary Care Provider Nestor Ma MD Primary Care Provider [phone] Encounter Details Date Type Department Care Team (Late st Contact Info) Description 04/28/2020 [employer] Message Enc [facility] Family & Internal Medicine [facility] [id number] [place] [address] Nestor Fletcher MD [address] [place] [address] RE: Medication Questions Social History Tobacco [...] Sex Assigned at Female 10/30/2019 8:35 AM ORE BRIDGE OPERATOR Legal Sex Female 10:55 PM CDT Gender Identity Female 10/30/2019 8:35 AM ORE BRIDGE OPERATOR Sexual Orientation Straight 10/30/2019 8: 35 AM ORE BRIDGE OPERATOR COVID-19 Exposure Response Date Recorded In [...] st Contact Info) Description 08/26/2025 9:00 AM ORE BRIDGE OPERATOR Office Visit [facility] Multispecialty Care - [facility] [address] [place] [phone] Francisco Levi DO [address] [place] [address] documented as of this encounter Visit Diagnoses Not on filedocumented in this encounter Additional Health Concerns Infection Onset Date Last Indicated Resolved Time COVID-19 Rule Out 05/15/2020 05/15/2020 05/16/2020 8:21 PM CDT COVID-19 Rule Out 05/25/2020 05/25/2020 05/27/2020 12:21 AM CDT COVID-19 Rule Out 06/26/2020 06/26/2020 06/27/2020 4:51 PM CDT COVID-19 Rule Out 07/06/2020 07/06/2020 07/08/2020 11:00 PM ORE BRIDGE OPERATOR COVID-19 Rule Out 07/09/2020 07/09/2020 07/12/2020 10:16 AM ORE BRIDGE OPERATOR COVID-19 Rule Out 11/14/2020 11/14/2020 11/15/2020 10:25 AM CDT COVID-19 Rule Out 01/05/2021 01/05/2021 01/05/2021 5:26 PM CDT COVID-19 Rule Out 12/02/2021 12/02/2021 12/02/2021 4:28 PM CDT COVID-19 Rule Out 05/20/2023 05/20/2023 05/20/2023 6:44 PM CDT COVID-19 Rule Out 09/11/2023 09/11/2023 09/11/2023 10:29 AM ORE BRIDGE OPERATOR COVID-19 Rule Out 03/18/2024 03/18/2024 03/18/2024 8:30 PM CDT COVID-19 Rule Out 05/27/2024 05/27/2024 05/27/2024 7:16 PM CDT documented as of this encounter Care Teams Tube Closing Machine Operator Relationship Specialty Start Date End Date None, Provider, PCP - General 03/25/20 05/14/20 [place] [address] [place] [address] PCP - General FAMILY PRACTICE 05/15/20 documented as of this encounter
--- OUTSIDE RECORDS SUMMARY | 2025-04-23 11:14 | XMS_ITS | Clinical Summary ---
Author Organization [facility] Address [address] [place] [address] Care Team Providers Care Primer Inspector Name Role Phone Benny Fletcher MD Primary Care Provider [phone] Allergies Active Allergy Reactions Criticality Noted Date [...] mouth once daily 180 each 025 Active gabapentin (NEURONTIN) 100 MG capsuleIndication s:Lumbar disc disease,Cervical radiculopathy Take 1 capsule (100 mg total) by mouth 3 (three) times daily. 270 capsule 025 Active predniSONE (DELTASONE) 20 MG tabletIndications [...] mg total) by mouth daily. 30 tablet Active hydrocortisone (CORTIZONE) 0.5 % creamIndications: Dermatitis Apply topically 2 (two) times daily. 35 g 025 Active FLUoxetine (PROZAC) 40 MG capsuleIndication s:Mood disorder in conditions classified elsewhere,Anxiety Take 1 capsule by mouth once daily 90 capsule 025 Active LORazepam (ATIVAN) 1 MG tabletIndications :Anxiety Take 1 tablet (1 mg total) by mouth every 8 (eight) hours as needed. FOR ANXIETY 20 tablet 025 Active ondansetron (ZOFRAN-ODT) 4 MG disintegrating tabletIndications :Nausea with vomiting DISSOLVE 1 TABLET IN MOUTH EVERY 6 HOURS NEEDED FOR NAUSEA AND FOR VOMITING 20 tablet 025 Active levothyroxine (SYNTHROID) 200 MCG tabletIndications :Hypothyroidism TAKE 1 TABLET BY MOUTH IN THE MORNING 90 tablet 025 Active tiZANidine (ZANAFLEX) 4 MG tabletIndications :Cervical disc disease TAKE 1 TABLET BY MOUTH EVERY 8 HOURS NEEDED 90 tablet 025 Active HYDROcodone-aceta minophen (NORCO) 10-325 MG tabletIndications :Chronic Pain Indications: Chronic Pain Take 1 tablet by mouth up to five times daily as needed. MUST LAST 28 FULL DAYS 140 tablet 025 Active levothyroxine (SYNTHROID) 200 MCG tabletIndications :Hypothyroidism TAKE 1 TABLET BY MOUTH IN THE MORNING 90 tablet 025 2024 Discontinued tiZANidine (ZANAFLEX) 4 MG tabletIndications :Cervical disc disease Take 1 tablet (4 mg total) by mouth every 8 (eight) hours as needed. 90 tablet 025 2024 Discontinued HYDROcodone-aceta minophen (NORCO) 10-325 MG tabletIndications :Chronic Pain Indications: Chronic Pain Take 1 tablet by mouth up to five times daily as needed. MUST LAST 28 FULL DAYS 140 tablet 025 2024 Discontinued(R eorder) Active Problems Problem Noted Date Diagnosed Date Esophageal pain 05/30/2024 Dyspepsia 05/30/2024 Gastroesophageal reflux dise ase, unspecified whether esophagitis present 05/30/2024 Low back pain 01/31/2024 Gastro-esophageal reflux disease without esophag itis 01/11/2023 Plantar flexed metatarsal bone of right foot Overview (12/15/2022): Added automatically from request for surgery [id number] Myofascial pain 11/09/2022 Dysphagia, unspecified type 06/15/2022 [...] (05/04/2020): Added automatically from request for surgery [id number] Rectal bleeding 05/04/2020 Overview (05/04/2020): Added automatically from request for surgery [id number] Chest pain 03/31/2020 Degenerative disc disease at L5-S1 level 020 Mild persistent asthma without complication (HHS /HCC) 03/31/2020 Gastritis determined by endoscopy 03/16/2020 Dyslipidemia 03/13/2020 SOB (shortness of breath) 03/13/[address] of the abdomen 03/12/2020 Overview (03/12/2020): Added automatically from request for surgery [id number] Foraminal stenosis of cervical region 06/06/2019 Primary hypertension 08/10/2018 Lumbar disc disease 08/10/2018 Mild [...] 07/24/2012 H/O total thyroidectomy 07/17/2008 Thyroid cancer ([facility]) Overview (11/09/2018): s/p thyroidectomy Anxiety Encounters Date Type Department Care Team Description 04/17/2025 9:45 AM CDT Telephone [facility] [address] [address] Benny Fletcher MD Holter Monitor 04/05/2025 MyChart Message Enc [facility] [address] [address] Benny Fletcher MD Heart monitor 04/04/2025 Results Follow-Up [facility] [address] [address] Benny Fletcher MD COMPREHENSIVE METABOLIC PANEL, LIPID PANEL, CBC W/DIFF AUTOMATED, TSH W/REFLEX 04/03/2025 9:00 AM CDT Laboratory Only [facility] [address] [address] Benny Fletcher MD 04/03/2025 8:40 AM CDT Office Visit [facility] [address] [address] Benny Fletcher MD Follow Up; Sleep Problem (Pt states she is very tired all the time ); Palpitations (Pt states she has been getting palpitations) 04/03/2025 Travel 03/30/2025 Scan HEALTH INFO SRVCS Scanned, [facility] MRI (SCAN) 03/18/2025 MyChart Message Enc [facility] [address] [address] Benny Fletcher MD Heart palpations 02/12/2025 Scan HEALTH INFO SRVCS Scanned, [facility] 02/05/2025 MyChart Message Enc [address] [address] Benny Fletcher MD Feet 02/04/2025 8:00 AM CDT Office Visit [facility] [address] [address] Benny Fletcher MD Sinus Problem (Sx stared over a week ago ); Ear Problem; Cough 02/04/2025 Travel 01/21/2025 Scan HEALTH INFO SRVCS Scanned, [facility] EMG (SCAN) from Last 3 Months Immunizations Immunization Administration [...] Sex Assigned at Female 10/30/2019 8:35 AM MOLD WASHER Legal Sex Female 10:55 PM CDT Gender Identity Female 10/30/2019 8:35 AM MOLD WASHER Sexual Orientation Straight 10/30/2019 8: 35 AM MOLD WASHER Last Filed Vital Signs Vital Sign Reading Time Taken Comments Blood Pressure 151/87 04/03/2025 8:34 AM CDT Pulse 83 04/03/2025 8:34 AM CDT Temperature 36.8 C (98.3 F) 04/03/2025 8:34 AM CDT Respiratory Rate 16 04/03/2025 8:34 AM CDT Oxygen Saturation 97% 04/03/2025 8:34 AM CDT Inhaled Oxygen Concentration - - Weight 116.1 kg (256 lb) 04/03/2025 8:34 AM CDT Height 165.1 cm (5' 5) 04/03/2025 8:34 AM CDT Body Mass Index 42.6 04/03/2025 8:34 AM CDT Plan of Treatment Upcoming Encounters Date Type Department Care Team (Late st Contact Info) Description 08/26/2025 9:00 AM MOLD WASHER Office Visit [facility] Mult[facility]pecialty Care - [facility] [address] [place] [phone] Francisco Levi DO [address] [place] [address] Health Maintenance Due Date Last Done Comments [...] Screening wi th HPV 07/01/2020 COVID-19 Vaccine (3 - 2023-2 5 season) 2024 12/24/2020, 11/26/2020 Mammogram Screening 01/02/2027 01/02/2025 DTaP, Tdap and Td Vaccines ( 2 - Td or Tdap) 02/21/2027 02/21/2017 Colorectal Cancer Screening Colonoscopy (10 Years) 05/18/2030 05/18/2020 PHQ-2 (Physician [place]) Completed 09/25/2024 Meningococcal B Vaccine Aged Out [...] i, RN Medical Devices Implanted Type Area Slp Teacher Device Identifier Shelf Expiration Date Model / Serial / Lot Cage Cage Neck Cage Cage Back [place] Interbody System Cervical Implanted:Qty : 1 on 06/06/2022 by Eusebio Ron MD at [facility] Cage N/A: Spine Cervical [employer] [id number] 09/14/2026 [id number] / / [id number] 22mm Plate Implanted:Qty : 1 on 06/06/2022 by Eusebio Ron MD at [facility] Plate N/A: Spine Cervical [employer] [id number] / / 4.0 X 16mm Screws Implanted:Qty : 4 on 06/06/2022 by Eusebio Ron MD at [facility] Screw N/A: Spine Cervical [employer] [id number] 6CA / / Bio4 Viable Bone Matrix -Spine Implanted:Qty : 1 on 06/06/2022 by Eusebio Ron MD at [facility] Tissue N/A: Spine Cervical [employer] 06/30/2024 [id number] / [id number] / Description:Lot no: [id number] Unit no: [id number] Part no: [id number] Explanted Type Area Slp Teacher Device Identifier Shelf Expiration Date Model / Serial / Lot Distration Pin 12mm - [id number] Explanted:Qty: 1 on 06/06/2022 by Eusebio Ron MD at [facility] Pin [employer]ster [facility] [id number]-12-[id number] / / Procedures Procedure Name Priority Date/Time Associated Diagnosis Comments COLLECTION VENOUS BLOOD VENIPUNCTURE Routine 04/03/2025 8:48 AM CDT Primary hypertension Postoperative hypothyroidism Dyslipidemia CBC W/DIFF AUTOMATED Routine 04/03/2025 8:47 AM CDT Primary hypertension LIPID PANEL Routine 04/03/2025 8:47 AM CDT Dyslipidemia COMPREHENSIVE METABOLIC PANEL Routine 04/03/2025 8:47 AM CDT Primary hypertension TSH W/REFLEX Routine 04/03/2025 8:47 AM CDT Postoperative hypothyroidism MRI GENERIC 03/30/2025 EMG GENERIC (SCAN ORDER) 01/21/2025 MG SCREENING W MAURICIO MAXI DIGI Routine 01/02/2025 1:53 PM CDT Screening mammogram, encounter for OUTSIDE CYTOPATH CERV/VAG INTERPRET (PAP) (SCAN ORDER) Routine 07/01/2015 12:00 AM CDT from Last 3 Months or Most Recently Relevant to Health Maintenance Results * (ABNORMAL) TSH W/REFLEX (04/03/2025 8:47 AM CDT) TSH 16.78(H) mIU/L [facility] Comment: Reference Range > or = 20 Years 0.40-4.50 Ranges First trimester 0.26-2.66 Second trimester 0.55-2.73 Third trimester 0.43-2.91 FREE T4 1.4 0.8 - 1.8 ng/dL [facility] 04/03/2025 8:47 AM CDT 04/04/2025 5:33 AM CDT Narrative Resulting Agency Comment Performing Organization Information: Site ID: [id number] Name: [facility] Address: [address] [place] [address] Director: Itzel Virk MD us Benny Fletcher MD LABORATORY Final Resul t [facility] CLIF [facility] [address] [place] [address] * (ABNORMAL) COMPREHENSIVE METABOLIC PANEL (04/03/2025 8:47 AM CDT) [facility] GLUCOSE 87 65 - 99 mg/dL [facility] Comment: Fasting reference interval BUN 15 7 - 25 mg/dL [facility] CREATININE S/P/B 0.93 0.50 - 0.99 mg/dL [facility] GFR ESTIMATE 76 > OR = 60 mL/min/1. 73m2 [facility] BUN CREATININE RATIO SEE NOTE: 6 (calc) [facility] Comment: Not Reported: BUN and Creatinine are within reference range. SODIUM S/P/B 140 135 - 146 mmol/L [facility] POTASSIUM S/P/B 4.7 3.5 - 5.3 mmol/L [facility] CHLORIDE S/P/B 101 98 - 110 mmol/L [facility] CO2 30 20 - 32 mmol/L [facility] CALCIUM S/P/B 8.4(L) 8.6 - 10.2 mg/dL [facility] TOTAL PROTEIN S/P/B 6.9 6.1 - 8.1 g/dL [facility] ALBUMIN S/P/B 4.3 3.6 - 5.1 g/dL [facility] GLOBULIN 2.6 1.9 - 3.7 g/dL (calc) [facility] ALBUMIN/GLOBULI N RATIO 1.7 1.0 - 2.5 (calc) [facility] BILIRUBIN TOTAL S/P/B 0.4 0.2 - 1.2 mg/dL [facility] ALKALINE PHOSPHATASE S/P/B 64 31 - 125 U/L [facility] AST 23 10 - 35 U/L [facility] ALT 30(H) 6 - 29 U/L [facility] 04/03/2025 8:47 AM CDT 04/04/2025 5:33 AM CDT Narrative Resulting Agency Comment Performing Organization Information: Site ID: [id number] [facility] Address: [id number] [place] [id number] Director: Itzel Virk MD us Benny Fletcher MD LABORATORY Final Resul t [facility] CLIF [facility] [id number] [place] [address] AP * (ABNORMAL) LIPID PANEL (04/03/2025 8:47 AM CDT) CHOLESTEROL 221(H) <200 mg/dL [facility] HDL 55 > OR = 50 mg/dL [facility] TRIGLYCERIDES 109 <150 mg/dL [facility] LDL (CALCULATED) 143(H) mg/dL (calc) [facility] Comment: Reference range: <100 Desirable range <100 mg/dL for primary prevention; <70 mg/dL for patients with CHD or diabetic patients with > or = 2 CHD risk factors. LDL-C is now calculated using the Marisabel calculation, which is a validated novel method providing better accuracy than the Friedewald equation in the estimation of LDL-C. Gunnar HARVEY et al. CARLITOS. 2013;310(19): 2917-8523 (http://education.SimplyInsured.Songdrop/faq/FBM360) CHOL/HDL RATIO 4.0 <5.0 (calc) [facility] NON HDL CHOLESTEROL 166(H) <130 mg/dL (calc) [facility] Comment: For patients with diabetes plus 1 major ASCVD risk factor, treating to a non-HDL-C goal of <100 mg/dL (LDL-C of <70 mg/dL) is considered a therapeutic option. 04/03/2025 8:47 AM CDT 04/04/2025 5:33 AM CDT Narrative Resulting Agency Comment Performing Organization Information: Site ID: [place] Name: [facility] Address: [address] [place] [address] Director: Itzel Virk MD us Benny Fletcher MD LABORATORY Final Resul t [facility] CLIF [facility] [id number] [place] [address], * (ABNORMAL) CBC W/DIFF AUTOMATED (04/03/2025 8:47 AM CDT) WBC 6.8 3.8 - 10.8 Thousand/ uL [facility] RBC 4.63 3.80 - 5.10 Million/u L [facility] HGB 13.1 11.7 - 15.5 g/dL [facility] HCT 42.1 35.0 - 45.0 % [facility] MCV 90.9 80.0 - 100.0 fL [facility] MCH 28.3 27.0 - 33.0 pg [facility] MCHC 31.1(L) 32.0 - 36.0 g/dL [facility] Comment: For adults, a slight decrease in the calculated MCHC value (in the range of 30 to 32 g/dL) is most likely not clinically significant; however, it should be interpreted with caution in correlation with other red cell parameters and the patient's clinical condition. RDW 14.5 11.0 - 15.0 % [facility] PLT 223 140 - 400 Thousand/ uL [facility] MPV 10.2 7.5 - 12.5 fL [facility] ABS. NEUTROPHILS 3,849 1,500 - 7,800 cells/uL [facility] ABS. LYMPHOCYTES 2,468 850 - 3,900 cells/uL [facility] ABS. MONOCYTES 476 200 - 950 cells/uL [facility] ABS. EOSINOPHILS 0(L) 15 - 500 cells/uL [facility] ABS. BASOPHILS 7 0 - 200 cells/uL [facility] SEG NEUTROPHILS 56.6 % [facility] LYMPHOCYTES 36.3 % [facility] MONOCYTES 7.0 % [facility] EOSINOPHILS 0.0 % [facility] BASOPHILS 0.1 % [facility] 04/03/2025 8:47 AM CDT 04/04/2025 5:33 AM CDT Narrative Resulting Agency Comment Performing Organization Information: Site ID: [id number] Name: [facility] Address: [facility] [place][note 2] [place] [address] Director: Itzel Virk MD Benny Fletcher MD LABORATORY Final Resul t [facility] [address] [place] [address], US * MRI GENERIC (03/30/2025) Anatomical Region Laterality Modality Other 03/30/2025 [facility] Scanned SCANNING Final Resu lt * EMG GENERIC (SCAN ORDER) (01/21/2025) 01/21/2025 [facility] Scanned SCANNING Final Resu lt [...] 2:47 PM Narrative 01/02/2025 2:48 PM CDT [facility] [address] [place] [address] EXAMINATION: Digital bilateral screening mammogram with 3-D [...] 07/01/2015 us Documents Scanned SCANNING Final [facility] from Last 3 Months or Most Recently Relevant to Health Maintenance Insurance CHARLES Advance Directives * Full Code (Latest Code [...] 1:39 AM 03/31/2020 7:21 PM Care Teams Primer Inspector Relationship Specialty [place] [address] [place] [address] PCP - General FAMILY PRACTICE 05/15/20
--- OUTSIDE RECORDS SUMMARY | 2025-04-23 11:14 | XMS_ITS | Encounter Summary ---
Author Organization [facility] Address [address] [place] [address] Care Team Providers Care Electrician Research Name Role Phone Nestor Fletcher MD Primary Care Provider +1 [phone] Encounter Details Date Type Department Care Team (Latest Contact Info) Description 04/04/2025 Results Follow-Up [facility] Family & Internal Medicine [address] [address] [place] [id number] [place], [place] [id number] COMPREHENSIVE METABOLIC PANEL, LIPID PANEL, CBC W/DIFF AUTOMATED, TSH W/REFLEX Social History Tobacco Use Types [...] Sex Assigned at Female 10/30/2019 8:35 AM TRANSITIONAL KINDERGARTEN TEACHER Legal Sex Female 10:55 PM CDT Gender Identity Female 10/30/2019 8:35 AM TRANSITIONAL KINDERGARTEN TEACHER Sexual Orientation Straight 10/30/2019 8: 35 AM TRANSITIONAL KINDERGARTEN TEACHER documented as of this encounter Functional Status [...] documented in this encounter Progress Notes * Nestor Fletcher MD - 04/04/2025 4:38 PM CDT TSH is improved but still low with normal T4 recommend repeating in six weeks, renal function and electrolytes are good with slightly elevated total cholesterol, wbc and H/H are normal * Marina Archer RN - 04/04/2025 9:09 [address] CDT [address] said your labs all look ok. He said we are just waiting on your thyroid blood test to come back. Marina Winston * Nestor Fletcher MD - 04/04/2025 8:54 AM CDT Labs are ok await TSH documented in this encounter Plan of Treatment Upcoming Encounters Date Type Department Care Team (Late st Contact Info) Description 08/26/2025 9:00 AM TRANSITIONAL KINDERGARTEN TEACHER Office Visit [facility] Multispecialty Care - [facility] [address] [place] [address] Francisco Levi, [address] [place] [address] documented as of this encounter Goals Goal Patient Goal Type Associated Problems Recent Progress Patient-Stated? Author Health - patient able to perform ADLs independently Lifestyle No Carrollerdomo i er, Kareem Camacho RN documented as of this encounter Visit Diagnoses Not on filedocumented in this encounter Additional Health Concerns Assessment Noted Time PHQ-9 Depression Total Score: 13 025 11:16 AM TRANSITIONAL KINDERGARTEN TEACHER documented as of this encounter Care Teams Electrician Research Relationship Specialty [place] [address] [place] [address] PCP - General FAMILY PRACTICE 05/15/20 documented as of this encounter
--- OUTSIDE RECORDS SUMMARY | 2025-04-23 11:14 | XMS_ITS | Encounter Summary ---
Author Organization [facility] Address [address] [place] [address] Care Team Providers Care Engineer Specialist Name Role Phone Nestor Fletcher MD Primary Care Provider [phone]- [phone] Encounter Details Date Type Department Care Team (Late st Contact Info) Description 11/28/2024 M:Metrics Message Enc [facility] Family & Internal Medicine [address] [address] Nestor Fletcher MD [address] [place] [address] New upper thigh pain Social History [...] Assigned at Female 10/30/2019 8:35 AM ASSISTANT PRINCIPAL Legal Sex Female 10:55 PM CDT Gender Identity Female 10/30/2019 8:35 AM ASSISTANT PRINCIPAL Sexual Orientation Straight 10/30/2019 8: 35 AM ASSISTANT PRINCIPAL documented as of this encounter Functional Status [...] Contact Info) Description 08/26/2025 9:00 AM ASSISTANT PRINCIPAL Office Visit [facility]pecialty Care - [facility] [address] [place] [address] Francisco Levi, [address] [place] [address] documented as of this encounter Goals Goal Patient Goal Type Associated Problems Recent Progress Patient-Stated? Author Health - patient able to perform ADLs independently Lifestyle No Vega hendrickson, Kareem Camacho RN documented as of this encounter Visit Diagnoses Not on filedocumented in this encounter Additional Health Concerns Assessment Noted Time PHQ-9 Depression Total Score: 13 025 11:16 AM ASSISTANT PRINCIPAL documented as of this encounter Care Teams Engineer Specialist Relationship Specialty [place] [address] [place] [address] PCP - General FAMILY PRACTICE 05/15/20 documented as of this encounter
--- OUTSIDE RECORDS SUMMARY | 2025-04-23 11:14 | XMS_ITS | Encounter Summary ---
Author Organization [facility] Address [facility] [place] [address] Care Team Providers Care Institutional Research Director Name Role Phone None, Provider Primary Care Provider Nestor Ma MD Primary Care Provider [phone] Encounter Details Date Type Department Care Team (Latest Contact Info) Description 03/26/2020 [facility] AT [address] [address] Angelica Archer, JD [address] [address] Follow Up/Update Social History Tobacco [...] Assigned at Female 10/30/2019 8:35 AM LUMBER RACKER Legal Sex Female 10:55 PM CDT Gender Identity Female 10/30/2019 8:35 AM LUMBER RACKER Sexual Orientation Straight 10/30/2019 8: 35 AM LUMBER RACKER COVID-19 Exposure Response Date Recorded In the last month, have you been in contact with someone who was confirmed or suspected to have Coronavirus / COVID-19? No / Unsure 03/27/2020 10:39 AM CDT documented as of this encounter Progress Notes * Angelica Archer NP - 03/31/2020 8:31 AM CDT Returned to work today. Reviewed message below. Patient currently at [facility]. No recs from my standpoint at this time. * Vee Eddy RN - 03/27/2020 8:25 AM CDT See below documented in this encounter Plan of Treatment Upcoming Encounters Date Type Department Care Team (Late st Contact Info) Description 08/26/2025 9:00 AM LUMBER RACKER Office Visit [facility] Multispecialty Care - [facility] [address] [place] [address] Francisco Levi DO [address] [place] [address] documented as of this encounter Visit Diagnoses Not on filedocumented in this encounter Additional Health Concerns Infection Onset Date Last Indicated Resolved Time COVID-19 Rule Out 05/15/2020 05/15/2020 05/16/2020 8:21 PM CDT COVID-19 Rule Out 05/25/2020 05/25/2020 05/27/2020 12:21 AM CDT COVID-19 Rule Out 06/26/2020 06/26/2020 06/27/2020 4:51 PM CDT COVID-19 Rule Out 07/06/2020 07/06/2020 07/08/2020 11:00 PM LUMBER RACKER COVID-19 Rule Out 07/09/2020 07/09/2020 07/12/2020 10:16 AM LUMBER RACKER COVID-19 Rule Out 11/14/2020 11/14/2020 11/15/2020 10:25 AM CDT COVID-19 Rule Out 01/05/2021 01/05/2021 01/05/2021 5:26 PM CDT COVID-19 Rule Out 12/02/2021 12/02/2021 12/02/2021 4:28 PM CDT COVID-19 Rule Out 05/20/2023 05/20/2023 05/20/2023 6:44 PM CDT COVID-19 Rule Out 09/11/2023 09/11/2023 09/11/2023 10:29 AM LUMBER RACKER COVID-19 Rule Out 03/18/2024 03/18/2024 03/18/2024 8:30 PM CDT COVID-19 Rule Out 05/27/2024 05/27/2024 05/27/2024 7:16 PM CDT documented as of this encounter Care Teams Institutional Research Director Relationship Specialty Start Date End Date None, Provider, PCP - General 03/25/20 05/14/20 [place] [address] [place] [address] PCP - General FAMILY PRACTICE 05/15/20 documented as of this encounter
--- OUTSIDE RECORDS SUMMARY | 2025-04-23 11:14 | XMS_ITS | Encounter Summary ---
Author Organization [facility] Address [facility] [place] [address] Care Team Providers Care Labels Molder Name Role Phone Tutu Hill MD Primary Care Provider + Linn CreekAry caldera NP Primary Care Provider + None, Provider Primary Care Provider Nestor Ma MD Primary Care Provider [phone] Encounter Details Date Type Department Care Team (Late st Contact Info) Description 11/14/2017 Abstract [facility] Tutu Hill MD [address] [address] Social History Tobacco Use Types Packs/Day Years Used Date Smoking Tobacco: Never Assessed Comments Unknown Sex and Gender Information Value Date Recorded Sex Assigned at Female 10/30/2019 8:35 AM SAMPLE CARRIER Legal Sex Female 10:55 PM CDT Gender Identity Female 10/30/2019 8:35 AM SAMPLE CARRIER Sexual Orientation Straight 10/30/2019 8: 35 AM SAMPLE CARRIER documented as of this encounter Miscellaneous Notes * Letter - Tutu Hill MD - 11/14/2017 12:00 AM CDT 11-14-2017 , Renu Marquez [address] [place] [address] : 1975 Lab Order CMP; Lipid Panel; TSH with reflex T4 E03.8 Other specified hypothyroidism Fasting Normal [x] Stat [] LE CARRIER documented in this encounter Plan of Treatment Upcoming Encounters Date Type Department Care Team (Late st Contact Info) Description 08/26/2025 9:00 AM SAMPLE CARRIER Office Visit [facility] Multispecialty Care - [facility] [address] [place] [address] Francisco Levi DO [address] [place] [address] documented as of this encounter Visit Diagnoses [...] Rule Out 07/06/2020 07/06/2020 07/08/2020 11:00 PM SAMPLE CARRIER COVID-19 Rule Out 07/09/2020 07/09/2020 07/12/2020 10:16 AM SAMPLE CARRIER COVID-19 Rule Out 11/14/2020 11/14/2020 11/15/2020 10:25 AM CDT COVID-19 Rule Out 01/05/2021 01/05/2021 01/05/2021 5:26 PM CDT COVID-19 Rule Out 12/02/2021 12/02/2021 12/02/2021 4:28 PM CDT COVID-19 Rule Out 05/20/2023 05/20/2023 05/20/2023 6:44 PM CDT COVID-19 Rule Out 09/11/2023 09/11/2023 09/11/2023 10:29 AM SAMPLE CARRIER COVID-19 Rule Out 03/18/2024 03/18/2024 03/18/2024 8:30 PM CDT COVID-19 Rule Out 05/27/2024 05/27/2024 05/27/2024 7:16 PM CDT documented as of this encounter Care Teams Labels Molder Relationship Specialty Start Date End Date Tutu Hill MD [address] [facility] [address] [place] [address] PCP - General FAMILY PRACTICE 08/09/18 03/19/20 Ary Rubalcava NP [address] [facility] [address] [place] [address] PCP - General Nurse Practitioner Family 03/20/2003/05 None, MD Santana PCP - General 03/25/20 05/14/20 [place] [address] [place] [address] PCP - General FAMILY PRACTICE 05/15/20 documented as of this encounter
--- OUTSIDE RECORDS SUMMARY | 2025-04-23 11:14 | XMS_ITS | Encounter Summary ---
Author Organization [facility] Address [address] [place] [address] Care Team Providers Care Vehicle Washer Name Role Phone Nestor Fletcher MD Primary Care Provider [phone] Encounter Details Date Type Department Care Team (Late st Contact Info) Description 03/24/2022 N[employer] After [employer] Message Enc [facility] Multispecialty Care - [facility] [address] [facility] [address] [place] [address] Pura Velazquez APRN [address] [facility] [address] [place] [address] Appointments Social History Tobacco Use Types Packs/Day [...] at Female 10/30/2019 8:35 AM HELP DESK ENGINEER Legal Sex Female 10:55 PM CDT Gender Identity Female 10/30/2019 8:35 AM HELP DESK ENGINEER Sexual Orientation Straight 10/30/2019 8: 35 AM HELP DESK ENGINEER COVID-19 Exposure Response Date Recorded In [...] st Contact Info) Description 08/26/2025 9:00 AM HELP DESK ENGINEER Office Visit [facility] Multispecialty Care - [facility] [address] [place] [address] Francisco Levi, [address] [facility] [place] [address] documented as of this encounter Visit Diagnoses Not on filedocumented in this encounter Additional Health Concerns Infection Onset Date Last Indicated Resolved Time COVID-19 Rule Out 05/20/2023 05/20/2023 05/20/2023 6:44 PM CDT COVID-19 Rule Out 09/11/2023 09/11/2023 09/11/2023 10:29 AM HELP DESK ENGINEER COVID-19 Rule Out 03/18/2024 03/18/2024 03/18/2024 8:30 PM CDT COVID-19 Rule Out 05/27/2024 05/27/2024 05/27/2024 7:16 PM CDT Assessment Noted Time PHQ-9 Depression Total Score: 0 02/26/20 22 9:40 AM CDT documented as of this encounter Care Teams Vehicle Washer Relationship Specialty [place] [address] [place] [address] PCP - General FAMILY PRACTICE 05/15/20 documented as of this encounter
--- OUTSIDE RECORDS SUMMARY | 2025-04-23 11:14 | XMS_ITS | Encounter Summary ---
Author Organization [facility] Address [facility] [place] [address] Care Team Providers Care Board Worker Name Role Phone Tutu Hill MD Primary Care Provider + CooksvilleAry NP Primary Care Provider + None, Provider Primary Care Provider Nestor Ma MD Primary Care Provider [phone] Encounter Details Date Type Department Care Team (Late st Contact Info) Description 03/12/2020 Prep for Procedure [facility] [address] [place] [address] [place] [address] [address] Social History Tobacco Use Types Packs/Day Years [...] Assigned at Female 10/30/2019 8:35 AM ASPHALT ROLLER PERSON Legal Sex Female 10:55 PM CDT Gender Identity Female 10/30/2019 8:35 AM ASPHALT ROLLER PERSON Sexual Orientation Straight 10/30/2019 8: 35 AM ASPHALT ROLLER PERSON COVID-19 Exposure Response Date Recorded In the last month, have you been in contact with someone who was confirmed or suspected to have Coronavirus / COVID-19? No / Unsure 03/13/2020 11:29 AM CDT documented as of this encounter Plan of Treatment Upcoming Encounters Date Type Department Care Team (Late st Contact Info) Description 08/26/2025 9:00 AM ASPHALT ROLLER PERSON Office Visit [facility] Multispecialty Care - [facility] [address] [place] [address] Francisco Levi DO [address] [place] [address] documented as of this encounter Results * PRE-SURGICAL/PRE-PROCEDURE CORONAVIRUS (COVID 19) (03/13/2020 11:30 AM CDT) CORONAVIRUS SARS COV 2 PCR (RESP) NOT DETECTED NOT DETECTED 03/15/2020 3:17 AM CDT [facility] Comment: A Not Detected (negative) test result [...] providers and patients using the following websites: https://www.[employer]/home/Covid-19/HCP/NAAT/fact-sheet2 https://www.[employer]/home/Covid-19/Patients/NAAT/ fact-sheet2 This test has been authorized by the FDA under an Emergency Use Authorization (EUA) for use by authorized laboratories. Due to the current public health emergency, [facility] is receiving a high volume of samples [...] about COVID-19 can be found at the [employer] website: www.[employer]/Covid19. Test performed at [facility] [place] [address] [place] [address] Director: BURT GALLOWAY DO,MPH NASOPHARYNGEAL SWAB / Unknown 03/13/2020 11:30 AM CDT us Hamilton Martin MD MICROBIOLOGY - GENERAL ORDERABLES Final Result [facility] [id number] [place] [address], [place] documented in this encounter Visit Diagnoses Diagnosis [...] Rule Out 07/06/2020 07/06/2020 07/08/2020 11:00 PM ASPHALT ROLLER PERSON COVID-19 Rule Out 07/09/2020 07/09/2020 07/12/2020 10:16 AM ASPHALT ROLLER PERSON COVID-19 Rule Out 11/14/2020 11/14/2020 11/15/2020 10:25 AM CDT COVID-19 Rule Out 01/05/2021 01/05/2021 01/05/2021 5:26 PM CDT COVID-19 Rule Out 12/02/2021 12/02/2021 12/02/2021 4:28 PM CDT COVID-19 Rule Out 05/20/2023 05/20/2023 05/20/2023 6:44 PM CDT COVID-19 Rule Out 09/11/2023 09/11/2023 09/11/2023 10:29 AM ASPHALT ROLLER PERSON COVID-19 Rule Out 03/18/2024 03/18/2024 03/18/2024 8:30 PM CDT COVID-19 Rule Out 05/27/2024 05/27/2024 05/27/2024 7:16 PM CDT documented as of this encounter Care Teams Board Worker Relationship Specialty Start Date End Date Tutu Hill MD [address] [facility] [address] [place] [address] PCP - General FAMILY PRACTICE 08/09/18 03/19/20 Ary Rubalcava NP [address] [facility] [address] [place] [address] PCP - General Nurse Practitioner Family 03/20/2003/05 None, MD Santana PCP - General 03/25/20 05/14/20 [place] [address] [place] [address] PCP - General FAMILY PRACTICE 05/15/20 documented as of this encounter
--- OUTSIDE RECORDS SUMMARY | 2025-04-23 11:14 | XMS_ITS | Encounter Summary ---
Author Organization [facility] Address [address] [place] [address] Care Team Providers Care Supervisor Throwing Department Name Role Phone Nestor Fletcher MD Primary Care Provider [phone] Encounter Details Date Type Department Care Team (Late st Contact Info) Description 03/11/2022 Boond Message Enc [facility] [id number] [place] [address] Carlos A Ocasio, DPBrinda [address] [place] [address] Surgery Social History Tobacco Use Types [...] Assigned at Female 10/30/2019 8:35 AM MACHINE WELDER Legal Sex Female 10:55 PM CDT Gender Identity Female 10/30/2019 8:35 AM MACHINE WELDER Sexual Orientation Straight 10/30/2019 8: 35 AM MACHINE WELDER COVID-19 Exposure Response Date Recorded In the [...] st Contact Info) Description 08/26/2025 9:00 AM MACHINE WELDER Office Visit [facility] Multispecialty Care - [facility] [address] [place] [phone] Francisco Levi DO [address] [facility] [place] [address] documented as of this encounter Visit Diagnoses Not on filedocumented in this encounter Additional Health Concerns Infection Onset Date Last Indicated Resolved Time COVID-19 Rule Out 05/20/2023 05/20/2023 05/20/2023 6:44 PM CDT COVID-19 Rule Out 09/11/2023 09/11/2023 09/11/2023 10:29 AM MACHINE WELDER COVID-19 Rule Out 03/18/2024 03/18/2024 03/18/2024 8:30 PM CDT COVID-19 Rule Out 05/27/2024 05/27/2024 05/27/2024 7:16 PM CDT Assessment Noted Time PHQ-9 Depression Total Score: 0 02/26/20 22 9:40 AM CDT documented as of this encounter Care Teams Supervisor Throwing Department Relationship Specialty [place] [address] [place] [address] PCP - General FAMILY PRACTICE 05/15/20 documented as of this encounter
--- OUTSIDE RECORDS SUMMARY | 2025-04-23 11:14 | XMS_ITS | Encounter Summary ---
Author Organization [facility] Address [address] [place] [address] Care Team Providers Care Training Officer Name Role Phone Nestor Fletcher MD Primary Care Provider [phone] Encounter Details Date Type Department Care Team (Late st Contact Info) Description 06/14/2022 [employer] Message Enc [facility] Multispecialty Care - [facility] [address] [facility] [place] [phone] Eusebio Ron MD 3 [place] [address] Post surgery Social History Tobacco Use Types [...] Sex Assigned at Female 10/30/2019 8:35 AM RESTAURANT SERVER Legal Sex Female 10:55 PM CDT Gender Identity Female 10/30/2019 8:35 AM RESTAURANT SERVER Sexual Orientation Straight 10/30/2019 8: 35 AM RESTAURANT SERVER COVID-19 Exposure Response Date Recorded In the [...] st Contact Info) Description 08/26/2025 9:00 AM RESTAURANT SERVER Office Visit [facility] Multispecialty Care - [facility] [address] [place] [address] Francisco Levi DO [address] [place] [address] documented as of this encounter Goals Goal [...] Rule Out 09/11/2023 09/11/2023 09/11/2023 10:29 AM RESTAURANT SERVER COVID-19 Rule Out 03/18/2024 03/18/2024 03/18/2024 8:30 PM CDT COVID-19 Rule Out 05/27/2024 05/27/2024 05/27/2024 7:16 PM CDT Assessment Noted Time PHQ-9 Depression Total Score: 0 02/26/20 22 9:40 AM CDT documented as of this encounter Care Teams Training Officer Relationship Specialty [place] [address] [place] [address] PCP - General FAMILY PRACTICE 05/15/20 documented as of this encounter
--- OUTSIDE RECORDS SUMMARY | 2025-04-23 11:14 | XMS_ITS | Encounter Summary ---
Author Organization [facility] Address [address] [place] [address] Care Team Providers Care Manager Business Continuity Name Role Phone None, Provider Primary Care Provider Nestor Ma MD Primary Care Provider [phone] Encounter Details Date Type Department Care Team (Late st Contact Info) Description 03/25/2020 [employer] Message [facility] [address] [place] [address] Tutu Hill MD [address] [facility] [address] [place] [address] RE: Medication Questions Social History [...] Assigned at Female 10/30/2019 8:35 AM FOOD AND BEVERAGE SERVER Legal Sex Female 10:55 PM CDT Gender Identity Female 10/30/2019 8:35 AM FOOD AND BEVERAGE SERVER Sexual Orientation Straight 10/30/2019 8: 35 AM FOOD AND BEVERAGE SERVER COVID-19 Exposure Response Date Recorded In the last month, have you been in contact with someone who was confirmed or suspected to have Coronavirus / COVID-19? No / Unsure 03/27/2020 10:39 AM CDT documented as of this encounter Plan of Treatment Upcoming Encounters Date Type Department Care Team (Late st Contact Info) Description 08/26/2025 9:00 AM FOOD AND BEVERAGE SERVER Office Visit [facility] Medical Group Multispecialty Care - [facility] [address] [place] [address] Francisco Levi DO [address] [place] [address] documented as of this encounter Visit Diagnoses Not on filedocumented in this encounter Additional Health Concerns Infection Onset Date Last Indicated Resolved Time COVID-19 Rule Out 05/15/2020 05/15/2020 05/16/2020 8:21 PM CDT COVID-19 Rule Out 05/25/2020 05/25/2020 05/27/2020 12:21 AM CDT COVID-19 Rule Out 06/26/2020 06/26/2020 06/27/2020 4:51 PM CDT COVID-19 Rule Out 07/06/2020 07/06/2020 07/08/2020 11:00 PM FOOD AND BEVERAGE SERVER COVID-19 Rule Out 07/09/2020 07/09/2020 07/12/2020 10:16 AM FOOD AND BEVERAGE SERVER COVID-19 Rule Out 11/14/2020 11/14/2020 11/15/2020 10:25 AM CDT COVID-19 Rule Out 01/05/2021 01/05/2021 01/05/2021 5:26 PM CDT COVID-19 Rule Out 12/02/2021 12/02/2021 12/02/2021 4:28 PM CDT COVID-19 Rule Out 05/20/2023 05/20/2023 05/20/2023 6:44 PM CDT COVID-19 Rule Out 09/11/2023 09/11/2023 09/11/2023 10:29 AM FOOD AND BEVERAGE SERVER COVID-19 Rule Out 03/18/2024 03/18/2024 03/18/2024 8:30 PM CDT COVID-19 Rule Out 05/27/2024 05/27/2024 05/27/2024 7:16 PM CDT documented as of this encounter Care Teams Manager Business Continuity Relationship Specialty Start Date End Date None, Provider, PCP - General 03/25/20 05/14/20 [place] [address] [place] [address] PCP - General FAMILY PRACTICE 05/15/20 documented as of this encounter
--- OUTSIDE RECORDS SUMMARY | 2025-04-23 11:14 | XMS_ITS | Encounter Summary ---
Author Organization [facility] Address [address] [place] [address] Care Team Providers Care Data Control Clerk Name Role Phone Nestor Fletcher MD Primary Care Provider [phone] Encounter Details Date Type Department Care Team (Late st Contact Info) Description 03/18/2025 Traansmission Message Enc [facility] Medical Group Family & Internal Medicine [address] [address] Nestor Fletcher MD [address] [place] [address] Heart palpations Social History Tobacco Use [...] Assigned at Female 10/30/2019 8:35 AM INSURANCE ADJUSTOR Legal Sex Female 10:55 PM CDT Gender Identity Female 10/30/2019 8:35 AM INSURANCE ADJUSTOR Sexual Orientation Straight 10/30/2019 8: 35 AM INSURANCE ADJUSTOR documented as of this encounter Functional Status [...] st Contact Info) Description 08/26/2025 9:00 AM INSURANCE ADJUSTOR Office Visit [facility] Medical Group Multispecialty Care - [facility] [address] [place] [phone] Francisco Levi, [address] [place] [address] documented as of this encounter Goals Goal Patient Goal Type Associated Problems Recent Progress Patient-Stated? Author Health - patient able to perform ADLs independently Lifestyle No Vega hendrickson, Kareem Camacho RN documented as of this encounter Visit Diagnoses Not on filedocumented in this encounter Additional Health Concerns Assessment Noted Time PHQ-9 Depression Total Score: 13 025 11:16 AM INSURANCE ADJUSTOR documented as of this encounter Care Teams Data Control Clerk Relationship Specialty [place] [address] [place] [address] PCP - General FAMILY PRACTICE 05/15/20 documented as of this encounter
--- OUTSIDE RECORDS SUMMARY | 2025-04-23 11:14 | XMS_ITS | Encounter Summary ---
Author Organization [facility] Address [address] [place] [address] Care Team Providers Care Talent Solutions Manager Name Role Phone Nestor Fletcher MD Primary Care Provider [phone] Encounter Details Date Type Department Care Team (Late st Contact Info) Description 06/08/2022 Open Silicont Message Enc [facility] Medical Group Multispecialty Care - [facility] [address] [place] [phone] Eusebio Ron MD 3 [place] [address] After surgery Social History Tobacco Use Types [...] Sex Assigned at Female 10/30/2019 8:35 AM VOICE INTERCEPT TECHNICIAN Legal Sex Female 10:55 PM CDT Gender Identity Female 10/30/2019 8:35 AM VOICE INTERCEPT TECHNICIAN Sexual Orientation Straight 10/30/2019 8: 35 AM VOICE INTERCEPT TECHNICIAN COVID-19 Exposure Response Date Recorded In [...] st Contact Info) Description 08/26/2025 9:00 AM VOICE INTERCEPT TECHNICIAN Office Visit [facility] Medical Group Mult[facility]pecialty Care - [facility] [address] [place] [address] Francisco Levi, [address] [place] [address] documented as of this encounter Goals Goal [...] Rule Out 09/11/2023 09/11/2023 09/11/2023 10:29 AM VOICE INTERCEPT TECHNICIAN COVID-19 Rule Out 03/18/2024 03/18/2024 03/18/2024 8:30 PM CDT COVID-19 Rule Out 05/27/2024 05/27/2024 05/27/2024 7:16 PM CDT Assessment Noted Time PHQ-9 Depression Total Score: 0 02/26/20 22 9:40 AM CDT documented as of this encounter Care Teams Talent Solutions Manager Relationship Specialty [place] [address] [place] [address] PCP - General FAMILY PRACTICE 05/15/20 documented as of this encounter
--- OUTSIDE RECORDS SUMMARY | 2025-04-23 11:14 | XMS_ITS | Encounter Summary ---
Author Organization [facility] Address [address] [place] [address] Care Team Providers Care Principal Process Engineer Name Role Phone Nestor Fletcher MD Primary Care Provider [phone] Encounter Details Date Type Department Care Team (Late st Contact Info) Description 03/09/2022 [employer] Message Enc [facility] Medical Group Family & Internal Medicine [address] [address] Nestor Fletcher MD [address] [place] [address] Pain meds Social History Tobacco Use [...] Sex Assigned at Female 10/30/2019 8:35 AM DECAL DECORATOR Legal Sex Female 10:55 PM CDT Gender Identity Female 10/30/2019 8:35 AM DECAL DECORATOR Sexual Orientation Straight 10/30/2019 8: 35 AM DECAL DECORATOR COVID-19 Exposure Response Date Recorded In the [...] st Contact Info) Description 08/26/2025 9:00 AM DECAL DECORATOR Office Visit [facility] Medical Group Multispecialty Care - [facility] [address] [place] [phone] Francisco Levi DO [address] [place] [address] documented as of this encounter Visit Diagnoses Not on filedocumented in this encounter Additional Health Concerns Infection Onset Date Last Indicated Resolved Time COVID-19 Rule Out 05/20/2023 05/20/2023 05/20/2023 6:44 PM CDT COVID-19 Rule Out 09/11/2023 09/11/2023 09/11/2023 10:29 AM DECAL DECORATOR COVID-19 Rule Out 03/18/2024 03/18/2024 03/18/2024 8:30 PM CDT COVID-19 Rule Out 05/27/2024 05/27/2024 05/27/2024 7:16 PM CDT Assessment Noted Time PHQ-9 Depression Total Score: 0 02/26/20 22 9:40 AM CDT documented as of this encounter Care Teams Principal Process Engineer Relationship Specialty [place] [address] [place] [address] PCP - General FAMILY PRACTICE 05/15/20 documented as of this encounter
--- OUTSIDE RECORDS SUMMARY | 2025-04-23 11:15 | XMS_ITS | Encounter Summary ---
Author Organization [facility] Address [address] [place] [address] Care Team Providers Care Cook Ship Name Role Phone Nestor Fletcher MD Primary Care Provider [phone] Encounter Details Date Type Department Care Team (Late st Contact Info) Description 04/07/2022 LivePerson Message Enc [facility] Medical Group Family & Internal Medicine [address] [address] Nestor Fletcher MD [address] [place] [address] Dehydration Social History Tobacco Use Types [...] Sex Assigned at Female 10/30/2019 8:35 AM CUP TRIMMING MACHINE OPERATOR Legal Sex Female 10:55 PM CDT Gender Identity Female 10/30/2019 8:35 AM CUP TRIMMING MACHINE OPERATOR Sexual Orientation Straight 10/30/2019 8: 35 AM CUP TRIMMING MACHINE OPERATOR COVID-19 Exposure Response Date Recorded [...] st Contact Info) Description 08/26/2025 9:00 AM CUP TRIMMING MACHINE OPERATOR Office Visit [facility] Medical Group Multispecialty Care - [facility] [address] [place] [phone] Francisco Levi DO [address] [place] [address] documented as of this encounter Visit Diagnoses Not on filedocumented in this encounter Additional Health Concerns Infection Onset Date Last Indicated Resolved Time COVID-19 Rule Out 05/20/2023 05/20/2023 05/20/2023 6:44 PM CDT COVID-19 Rule Out 09/11/2023 09/11/2023 09/11/2023 10:29 AM CUP TRIMMING MACHINE OPERATOR COVID-19 Rule Out 03/18/2024 03/18/2024 03/18/2024 8:30 PM CDT COVID-19 Rule Out 05/27/2024 05/27/2024 05/27/2024 7:16 PM CDT Assessment Noted Time PHQ-9 Depression Total Score: 0 02/26/20 22 9:40 AM CDT documented as of this encounter Care Teams Cook Ship Relationship Specialty [place] [address] [place] [address] PCP - General FAMILY PRACTICE 05/15/20 documented as of this encounter
--- OUTSIDE RECORDS SUMMARY | 2025-04-23 11:15 | XMS_ITS | Encounter Summary ---
Author Organization [facility] Address [address] [place] [address] Care Team Providers Care Research/Program Director Name Role Phone Nestor Fletcher MD Primary Care Provider [phone] Encounter Details Date Type Department Care Team (Late st Contact Info) Description 06/10/2020 [employer] Message Enc [facility] Medical Group Multispecialty Care - [facility] [address] [place] [address] Francisco Levi DO [address] [place] [address] RE: Question Social History Tobacco Use Types [...] Assigned at Female 10/30/2019 8:35 AM LEAD RAMP AGENT Legal Sex Female 10:55 PM CDT Gender Identity Female 10/30/2019 8:35 AM LEAD RAMP AGENT Sexual Orientation Straight 10/30/2019 8: 35 AM LEAD RAMP AGENT COVID-19 Exposure Response Date Recorded In the [...] st Contact Info) Description 08/26/2025 9:00 AM LEAD RAMP AGENT Office Visit [facility] Medical Group Multispecialty Care - [facility] [address] [place] [address] Francisco Levi, [address] [place] [address] documented as of this encounter Visit Diagnoses Not on filedocumented in this encounter Additional Health Concerns Infection Onset Date Last Indicated Resolved Time COVID-19 Rule Out 06/26/2020 06/26/2020 06/27/2020 4:51 PM CDT COVID-19 Rule Out 07/06/2020 07/06/2020 07/08/2020 11:00 PM LEAD RAMP AGENT COVID-19 Rule Out 07/09/2020 07/09/2020 07/12/2020 10:16 AM LEAD RAMP AGENT COVID-19 Rule Out 11/14/2020 11/14/2020 11/15/2020 10:25 AM CDT COVID-19 Rule Out 01/05/2021 01/05/2021 01/05/2021 5:26 PM CDT COVID-19 Rule Out 12/02/2021 12/02/2021 12/02/2021 4:28 PM CDT COVID-19 Rule Out 05/20/2023 05/20/2023 05/20/2023 6:44 PM CDT COVID-19 Rule Out 09/11/2023 09/11/2023 09/11/2023 10:29 AM LEAD RAMP AGENT COVID-19 Rule Out 03/18/2024 03/18/2024 03/18/2024 8:30 PM CDT COVID-19 Rule Out 05/27/2024 05/27/2024 05/27/2024 7:16 PM CDT documented as of this encounter Care Teams Research/Program Director Relationship Specialty [place] [address] [place] [address] PCP - General FAMILY PRACTICE 05/15/20 documented as of this encounter
--- OUTSIDE RECORDS SUMMARY | 2025-04-23 11:15 | XMS_ITS | Encounter Summary ---
Author Organization [facility] Address [address] [place] [address] Care Team Providers Care A P Manager Name Role Phone Nestor Fletcher MD Primary Care Provider [phone] Encounter Details Date Type Department Care Team (Late st Contact Info) Description 08/12/2020 raksul Message Enc [facility] Medical Group General Surgery - [place] [address] [place] [address] [place] [address] [place] [address] Question Social History Tobacco Use Types Packs/Day [...] Sex Assigned at Female 10/30/2019 8:35 AM FIELD CAPTAIN Legal Sex Female 10:55 PM CDT Gender Identity Female 10/30/2019 8:35 AM FIELD CAPTAIN Sexual Orientation Straight 10/30/2019 8: 35 AM FIELD CAPTAIN COVID-19 Exposure Response Date Recorded In the last month, have you been in contact with someone who was confirmed or suspected to have Coronavirus / COVID-19? No / Unsure 08/15/2020 10:21 PM FIELD CAPTAIN documented as of this encounter Functional [...] 2:12 AM CINTHYAT Kelly Hayes RN Active documented as of this encounter Mental Status * Because of a physical, mental, or emotional condition, do you have serious difficulty concentrating, remembering, or making decisions? Answer Entry Date Author Status No 03/31/2020 2:12 AM Kelly Wade RN Active documented in this encounter Plan of Treatment Upcoming Encounters Date Type Department Care Team (Late st Contact Info) Description 08/26/2025 9:00 AM FIELD CAPTAIN Office Visit [facility] Medical Group Multispecialty Care - [facility] [address] [place] [phone] Francisco Levi DO [address] [place] [address] documented as of this encounter Visit Diagnoses [...] Rule Out 09/11/2023 09/11/2023 09/11/2023 10:29 AM FIELD CAPTAIN COVID-19 Rule Out 03/18/2024 03/18/2024 03/18/2024 8:30 PM CDT COVID-19 Rule Out 05/27/2024 05/27/2024 05/27/2024 7:16 PM CDT documented as of this encounter Care Teams A P Manager Relationship Specialty [place] [address] [place] [address] PCP - General FAMILY PRACTICE 05/15/20 documented as of this encounter
--- OUTSIDE RECORDS SUMMARY | 2025-04-23 11:15 | XMS_ITS | Encounter Summary ---
Author Organization [facility] Address [address] [place] [address] Care Team Providers Care Rehabilitation Counsellor Name Role Phone Nestor Fletcher MD Primary Care Provider [phone] Encounter Details Date Type Department Care Team (Late st Contact Info) Description 10/07/2020 Mobile2Me Message Enc [facility] Medical Group Foot [facility] Ankle [facility] [id number] [place] [address] Carlos A Ocasio, ROSY [address] [place] [address] RE: Other Social History Tobacco Use [...] Sex Assigned at Female 10/30/2019 8:35 AM SURFACER OPERATOR Legal Sex Female 10:55 PM CDT Gender Identity Female 10/30/2019 8:35 AM SURFACER OPERATOR Sexual Orientation Straight 10/30/2019 8: 35 AM SURFACER OPERATOR COVID-19 Exposure Response Date Recorded In the last month, have you been in contact with someone who was confirmed or suspected to have Coronavirus / COVID-19? No / Unsure 10/07/2020 4:21 PM SURFACER OPERATOR documented as of this encounter Functional [...] Dr. Leda Ocasio Sent: 10/07/2020 7:29 PM SURFACER OPERATOR Subject: Other toll test desk worker wanted to know when my appointment with Dr. Fletcher will be for surgical clearance. It has been scheduled for 10-14-2020. ACER OPERATOR documented in this encounter Plan of Treatment Upcoming Encounters Date Type Department Care Team (Late st Contact Info) Description 08/26/2025 9:00 AM SURFACER OPERATOR Office Visit [facility] Medical Group Multispecialty Care - [facility] [address] [place] [address] Francisco Levi DO [address] [place] [address] documented as of this encounter Visit Diagnoses [...] Rule Out 09/11/2023 09/11/2023 09/11/2023 10:29 AM SURFACER OPERATOR COVID-19 Rule Out 03/18/2024 03/18/2024 03/18/2024 8:30 PM CDT COVID-19 Rule Out 05/27/2024 05/27/2024 05/27/2024 7:16 PM CDT documented as of this encounter Care Teams Rehabilitation Counsellor Relationship Specialty [place] [address] [place] [address] PCP - General FAMILY PRACTICE 05/15/20 documented as of this encounter
--- OUTSIDE RECORDS SUMMARY | 2025-04-23 11:15 | XMS_ITS | Encounter Summary ---
Author Organization [facility] Address [address] [place] [address] Care Team Providers Care Restaurant Front Manager Name Role Phone None, Provider Primary Care Provider Nestor Ma MD Primary Care Provider [phone] Encounter Details Date Type Department Care Team (Late st Contact Info) Description 05/12/[address] [facility] [address] [place] [address] [place] [address] [place] [address] Social History Tobacco Use Types Packs/Day Years [...] Assigned at Female 10/30/2019 8:35 AM COMIC BOOK DESIGNER Legal Sex Female 10:55 PM CDT Gender Identity Female 10/30/2019 8:35 AM COMIC BOOK DESIGNER Sexual Orientation Straight 10/30/2019 8: 35 AM COMIC BOOK DESIGNER COVID-19 Exposure Response Date Recorded In [...] st Contact Info) Description 08/26/2025 9:00 AM COMIC BOOK DESIGNER Office Visit [facility] Medical Group Multispecialty Care - [facility] [address] [place] [phone] Francisco Levi DO [address] [place] [address] documented as of this encounter Results * PRE-SURGICAL/PRE-PROCEDURE CORONAVIRUS (COVID 19) (05/15/2020 10:02 AM CDT) CORONAVIRUS SARS COV 2 PCR (RESP) NOT DETECTED NOT DETECTED 05/16/2020 8:21 PM CDT [employer] [facility] Comment: A Not Detected (negative) test result [...] providers and patients using the following websites: https://www.BTR.ShareHows/home/Covid-19/HCP/NAAT/fact-sheet2 https://www.BTR.ShareHows/home/Covid-19/Patients/NAAT/ fact-sheet2 This test has been authorized by the FDA under an Emergency Use Authorization (EUA) for use by authorized laboratories. Due to the current public health emergency, [employer] is receiving a high volume of samples [...] about COVID-19 can be found at the [employer] website: www.Landpoint.ShareHows/Covid19. Test performed at [facility] [employer] [address] [place] [address] Director: BURT GALLOWAY DO,MPH FIRST TEST NO 05/15/2020 10:52 AM CDT [facility] EMPLOYED IN HEALTHCARE NO 05/15/2020 10:52 AM CDT [facility] SYMPTOMATIC DEFINED BY CDC NO 05/15/2020 10:52 AM CDT [facility] DATE OF SYMPTOM ONSET NA 05/15/2020 10:52 AM CDT [facility] HOSPITALIZATION STATUS NO 05/15/2020 10:52 AM CDT [facility] PATIENT IN ICU NO 05/15/2020 10:52 AM CDT [facility] RESIDENT OF [facility] NO 05/15/2020 10:52 AM CDT [facility] NO 05/15/2020 10:52 AM CDT [facility] PATIENT'S RACE WHITE 05/15/2020 10:52 AM CDT [facility] ETHNICITY WHITE 05/15/2020 10:52 AM CDT [facility] SOURCE (QST) NASOPHARYNGEAL SWAB 05/15/2020 10:02 AM CDT [facility] NASOPHARYNGEAL SWAB / Unknown 05/15/2020 10:02 AM CDT Hamilton Martin MD MICROBIOLOGY - GENERAL ORDERABLES Final Result [facility] [address] [place] [address], [employer] [facility] [id number] [place] [address], documented in this encounter Visit Diagnoses Diagnosis Pre-op testing- Primary Preoperative examination, unspecified documented in this encounter Additional Health Concerns Infection Onset Date Last Indicated Resolved Time COVID-19 Rule Out 05/15/2020 05/15/2020 05/16/2020 8:21 PM CDT COVID-19 Rule Out 05/25/2020 05/25/2020 05/27/2020 12:21 AM CDT COVID-19 Rule Out 06/26/2020 06/26/2020 06/27/2020 4:51 PM CDT COVID-19 Rule Out 07/06/2020 07/06/2020 07/08/2020 11:00 PM COMIC BOOK DESIGNER COVID-19 Rule Out 07/09/2020 07/09/2020 07/12/2020 10:16 AM COMIC BOOK DESIGNER COVID-19 Rule Out 11/14/2020 11/14/2020 11/15/2020 10:25 AM CDT COVID-19 Rule Out 01/05/2021 01/05/2021 01/05/2021 5:26 PM CDT COVID-19 Rule Out 12/02/2021 12/02/2021 12/02/2021 4:28 PM CDT COVID-19 Rule Out 05/20/2023 05/20/2023 05/20/2023 6:44 PM CDT COVID-19 Rule Out 09/11/2023 09/11/2023 09/11/2023 10:29 AM COMIC BOOK DESIGNER COVID-19 Rule Out 03/18/2024 03/18/2024 03/18/2024 8:30 PM CDT COVID-19 Rule Out 05/27/2024 05/27/2024 05/27/2024 7:16 PM CDT documented as of this encounter Care Teams Restaurant Front Manager Relationship Specialty Start Date End Date None, Provider, PCP - General 03/25/20 05/14/20 [place] [address] [place] [address] PCP - General FAMILY PRACTICE 05/15/20 documented as of this encounter
--- OUTSIDE RECORDS SUMMARY | 2025-04-23 11:15 | XMS_ITS | Encounter Summary ---
Author Organization [facility] Address [address] [place] [address] Care Team Providers Care Head Of It Name Role Phone Nestor Fletcher MD Primary Care Provider [phone] Encounter Details Date Type Department Care Team (Late st Contact Info) Description 05/30/2022 Awareness Card Message Enc [facility] Medical Group Family & Internal Medicine [address] [address] Nestor Fletcher MD [address] [place] [address] Surgical clearance Social History Tobacco Use [...] Sex Assigned at Female 10/30/2019 8:35 AM WORKERS COMPENSATION ANALYST Legal Sex Female 10:55 PM CDT Gender Identity Female 10/30/2019 8:35 AM WORKERS COMPENSATION ANALYST Sexual Orientation Straight 10/30/2019 8: 35 AM WORKERS COMPENSATION ANALYST COVID-19 Exposure Response Date Recorded In [...] st Contact Info) Description 08/26/2025 9:00 AM WORKERS COMPENSATION ANALYST Office Visit [facility] Medical Group Multispecialty Care - [facility] [address] [place] [phone] Francisco Levi DO [address] [place] [address] documented as of this encounter Visit Diagnoses Not on filedocumented in this encounter Additional Health Concerns Infection Onset Date Last Indicated Resolved Time COVID-19 Rule Out 05/20/2023 05/20/2023 05/20/2023 6:44 PM CDT COVID-19 Rule Out 09/11/2023 09/11/2023 09/11/2023 10:29 AM WORKERS COMPENSATION ANALYST COVID-19 Rule Out 03/18/2024 03/18/2024 03/18/2024 8:30 PM CDT COVID-19 Rule Out 05/27/2024 05/27/2024 05/27/2024 7:16 PM CDT Assessment Noted Time PHQ-9 Depression Total Score: 0 02/26/20 22 9:40 AM CDT documented as of this encounter Care Teams Head Of It Relationship Specialty [place] [address] [place] [address] PCP - General FAMILY PRACTICE 05/15/20 documented as of this encounter
--- OUTSIDE RECORDS SUMMARY | 2025-04-23 11:15 | XMS_ITS | Encounter Summary ---
Author Organization [facility] Address [address] [place] [address] Care Team Providers Care Engine Specialist Name Role Phone None, Provider Primary Care Provider Nestor Ma MD Primary Care Provider [phone] Encounter Details Date Type Department Care Team (Late st Contact Info) Description 05/04/2020 [employer] Message Enc [facility] Medical Group Family & Internal Medicine [facility] [phone] [place] [address] Nest[place] Fletcher [place] [id number] [place] [address] Question Social History Tobacco Use Types [...] Sex Assigned at Female 10/30/2019 8:35 AM ULTRASOUND TECHNICIAN Legal Sex Female 10:55 PM CDT Gender Identity Female 10/30/2019 8:35 AM ULTRASOUND TECHNICIAN Sexual Orientation Straight 10/30/2019 8: 35 AM ULTRASOUND TECHNICIAN COVID-19 Exposure Response Date Recorded In [...] st Contact Info) Description 08/26/2025 9:00 AM ULTRASOUND TECHNICIAN Office Visit [facility] Medical Group [facility]pecialty Care [facility] [address] [place] [address] Francisco Levi DO [address] [place] [address] documented as of this encounter Visit Diagnoses Not on filedocumented in this encounter Additional Health Concerns Infection Onset Date Last Indicated Resolved Time COVID-19 Rule Out 05/15/2020 05/15/2020 05/16/2020 8:21 PM CDT COVID-19 Rule Out 05/25/2020 05/25/2020 05/27/2020 12:21 AM CDT COVID-19 Rule Out 06/26/2020 06/26/2020 06/27/2020 4:51 PM CDT COVID-19 Rule Out 07/06/2020 07/06/2020 07/08/2020 11:00 PM ULTRASOUND TECHNICIAN COVID-19 Rule Out 07/09/2020 07/09/2020 07/12/2020 10:16 AM ULTRASOUND TECHNICIAN COVID-19 Rule Out 11/14/2020 11/14/2020 11/15/2020 10:25 AM CDT COVID-19 Rule Out 01/05/2021 01/05/2021 01/05/2021 5:26 PM CDT COVID-19 Rule Out 12/02/2021 12/02/2021 12/02/2021 4:28 PM CDT COVID-19 Rule Out 05/20/2023 05/20/2023 05/20/2023 6:44 PM CDT COVID-19 Rule Out 09/11/2023 09/11/2023 09/11/2023 10:29 AM ULTRASOUND TECHNICIAN COVID-19 Rule Out 03/18/2024 03/18/2024 03/18/2024 8:30 PM CDT COVID-19 Rule Out 05/27/2024 05/27/2024 05/27/2024 7:16 PM CDT documented as of this encounter Care Teams Engine Specialist Relationship Specialty Start Date End Date None, Provider, PCP - General 03/25/20 05/14/20 [place] [address] [place] [address] PCP - General FAMILY PRACTICE 05/15/20 documented as of this encounter
--- OUTSIDE RECORDS SUMMARY | 2025-04-23 11:15 | XMS_ITS | Encounter Summary ---
Author Organization [facility] Address [address] [place] [address] Care Team Providers Care Wrapper Off Name Role Phone Nestor Fletcher MD Primary Care Provider [phone] Encounter Details Date Type Department Care Team (Late st Contact Info) Description 10/09/2020 [employer] [facility] Message Enc [facility] Medical Group Family & Internal Medicine [facility] [address] [place] [address] Natali Polo APNP [address] [facility] [address] [place] [address] RE: Question Social History Tobacco Use [...] Assigned at Female 10/30/2019 8:[address] LIGHT SERVICER Legal Sex Female 10:55 PM CDT Gender Identity Female 10/30/2019 8:[address] LIGHT SERVICER Sexual Orientation Straight 10/30/2019 8: [address] LIGHT SERVICER COVID-19 Exposure Response Date Recorded In the last month, have you been in contact with someone who was confirmed or suspected to have Coronavirus / COVID-19? No / Unsure 10/12/2020 10:[address] LIGHT SERVICER documented as of this encounter Functional Status [...] evaluation with labs likely and exam.Thank you. ET LIGHT SERVICER * Monique Vasquez MA - 10/09/2020 4:02 PM CST Please advise ET LIGHT SERVICER documented in this encounter Plan of Treatment Upcoming Encounters Date Type Department Care Team (Late st Contact Info) Description 08/26/2025 9:[address] LIGHT SERVICER Office Visit [facility] Medical Group Multispecialty Care - [facility] [address] [place] [address] LeviFrancisco culp [address] [place] [address] documented as of this encounter Visit Diagnoses [...] Out 09/11/2023 09/11/2023 09/11/2023 10:[address] LIGHT SERVICER COVID-19 Rule Out 03/18/2024 03/18/2024 03/18/2024 8:30 PM CDT COVID-19 Rule Out 05/27/2024 05/27/2024 05/27/2024 7:16 PM CDT documented as of this encounter Care Teams Wrapper Off Relationship Specialty [place] [address] [place] [address] PCP - General FAMILY PRACTICE 05/15/20 documented as of this encounter
--- OUTSIDE RECORDS SUMMARY | 2025-04-23 11:15 | XMS_ITS | Encounter Summary ---
Author Organization [facility] Address [address] [place] [address] Care Team Providers Care Vending Machine Filler Name Role Phone Nestor Fletcher MD Primary Care Provider [phone] Encounter Details Date Type Department Care Team (Late st Contact Info) Description 05/13/2022 BioRelixt Message Enc [facility] Medical Group Multispecialty Care - [facility] [address] [facility], [address] [place] [phone] Eusebio Ron MD [address] [place] [address] Bone stimulator Social History Tobacco Use Types [...] Sex Assigned at Female 10/30/2019 8:35 AM BUDGET ANALYST Legal Sex Female 10:55 PM CDT Gender Identity Female 10/30/2019 8:35 AM BUDGET ANALYST Sexual Orientation Straight 10/30/2019 8: 35 AM BUDGET ANALYST COVID-19 Exposure Response Date Recorded In [...] st Contact Info) Description 08/26/2025 9:00 AM BUDGET ANALYST Office Visit [facility] Medical Group Multispecialty Care - [facility] [address] [place] [address] Francisco Levi, [address] [facility] [address] [place] [address] documented as of this encounter Visit Diagnoses Not on filedocumented in this encounter Additional Health Concerns Infection Onset Date Last Indicated Resolved Time COVID-19 Rule Out 05/20/2023 05/20/2023 05/20/2023 6:44 PM CDT COVID-19 Rule Out 09/11/2023 09/11/2023 09/11/2023 10:29 AM BUDGET ANALYST COVID-19 Rule Out 03/18/2024 03/18/2024 03/18/2024 8:30 PM CDT COVID-19 Rule Out 05/27/2024 05/27/2024 05/27/2024 7:16 PM CDT Assessment Noted Time PHQ-9 Depression Total Score: 0 02/26/20 22 9:40 AM CDT documented as of this encounter Care Teams Vending Machine Filler Relationship Specialty [place] [address] [place] [address] PCP - General FAMILY PRACTICE 05/15/20 documented as of this encounter
--- OUTSIDE RECORDS SUMMARY | 2025-04-23 11:15 | XMS_ITS | Encounter Summary ---
Author Organization [facility] Address [address] [place] [address] Care Team Providers Care Chip Mixer Name Role Phone Nestor Fletcher MD Primary Care Provider [phone] Encounter Details Date Type Department Care Team (Late st Contact Info) Description 07/09/2020 CADsurf Message Enc [facility] Medical Group Family & Internal Medicine [facility] [address] [place] [address] Natali Polo APNP [address] [facility] [address] [place] [address] RE: Follow Up/Update Social History Tobacco [...] Assigned at Female 10/30/2019 8:35 AM HOT MOLDER Legal Sex Female 10:55 PM CDT Gender Identity Female 10/30/2019 8:35 AM HOT MOLDER Sexual Orientation Straight 10/30/2019 8: 35 AM HOT MOLDER COVID-19 Exposure Response Date Recorded In the last month, have you been in contact with someone who was confirmed or suspected to have Coronavirus / COVID-19? No / Unsure 07/09/2020 11:53 AM HOT MOLDER documented as of this encounter Functional Status [...] st Contact Info) Description 08/26/2025 9:00 AM HOT MOLDER Office Visit [facility] Medical Group Multispecialty Care - [facility] [address] [facility] [address] [facility] [address] [place] [phone] Francisco Levi DO [address] [facility] [place] [address] documented as of this encounter Visit Diagnoses Not on filedocumented in this encounter Additional Health Concerns Infection Onset Date Last Indicated Resolved Time COVID-19 Rule Out 07/09/2020 07/09/2020 07/12/2020 10:16 AM HOT MOLDER COVID-19 Rule Out 11/14/2020 11/14/2020 11/15/2020 10:25 AM CDT COVID-19 Rule Out 01/05/2021 01/05/2021 01/05/2021 5:26 PM CDT COVID-19 Rule Out 12/02/2021 12/02/2021 12/02/2021 4:28 PM CDT COVID-19 Rule Out 05/20/2023 05/20/2023 05/20/2023 6:44 PM CDT COVID-19 Rule Out 09/11/2023 09/11/2023 09/11/2023 10:29 AM HOT MOLDER COVID-19 Rule Out 03/18/2024 03/18/2024 03/18/2024 8:30 PM CDT COVID-19 Rule Out 05/27/2024 05/27/2024 05/27/2024 7:16 PM CDT documented as of this encounter Care Teams Chip Mixer Relationship Specialty [place] [address] [place] [address] PCP - General FAMILY PRACTICE 05/15/20 documented as of this encounter
--- OUTSIDE RECORDS SUMMARY | 2025-04-23 11:15 | XMS_ITS | Encounter Summary ---
Author Organization [facility] Address [facility] [place] [address] Care Team Providers Care Garment Manufacturing Supervisor Name Role Phone None, Provider Primary Care Provider Nestor Ma MD Primary Care Provider [phone] Encounter Details Date Type Department Care Team (Late st Contact Info) Description 05/13/2020 Imindit Message Enc [facility] Medical Group General Surgery - [place] [address] [facility], [address] [place] [address] [place] [address] [address] [address] [place] [address] RE: Medication Questions Social History Tobacco Use [...] Sex Assigned at Female 10/30/2019 8:35 AM PACK OUT OPERATOR Legal Sex Female 10:55 PM CDT Gender Identity Female 10/30/2019 8:35 AM PACK OUT OPERATOR Sexual Orientation Straight 10/30/2019 8: 35 AM PACK OUT OPERATOR COVID-19 Exposure Response Date Recorded In [...] st Contact Info) Description 08/26/2025 9:00 AM PACK OUT OPERATOR Office Visit [facility] Medical Group Multispecialty Care - [facility] [address] [facility] [address] [place] [phone] Francisco Levi DO [address] [facility] [address] [place] [address] documented as of this encounter Visit Diagnoses Not on filedocumented in this encounter Additional Health Concerns Infection Onset Date Last Indicated Resolved Time COVID-19 Rule Out 05/15/2020 05/15/2020 05/16/2020 8:21 PM CDT COVID-19 Rule Out 05/25/2020 05/25/2020 05/27/2020 12:21 AM CDT COVID-19 Rule Out 06/26/2020 06/26/2020 06/27/2020 4:51 PM CDT COVID-19 Rule Out 07/06/2020 07/06/2020 07/08/2020 11:00 PM PACK OUT OPERATOR COVID-19 Rule Out 07/09/2020 07/09/2020 07/12/2020 10:16 AM PACK OUT OPERATOR COVID-19 Rule Out 11/14/2020 11/14/2020 11/15/2020 10:25 AM CDT COVID-19 Rule Out 01/05/2021 01/05/2021 01/05/2021 5:26 PM CDT COVID-19 Rule Out 12/02/2021 12/02/2021 12/02/2021 4:28 PM CDT COVID-19 Rule Out 05/20/2023 05/20/2023 05/20/2023 6:44 PM CDT COVID-19 Rule Out 09/11/2023 09/11/2023 09/11/2023 10:29 AM PACK OUT OPERATOR COVID-19 Rule Out 03/18/2024 03/18/2024 03/18/2024 8:30 PM CDT COVID-19 Rule Out 05/27/2024 05/27/2024 05/27/2024 7:16 PM CDT documented as of this encounter Care Teams Garment Manufacturing Supervisor Relationship Specialty Start Date End Date None, Provider, PCP - General 03/25/20 05/14/20 [place] [address] [place] [address] PCP - General FAMILY PRACTICE 05/15/20 documented as of this encounter
--- OUTSIDE RECORDS SUMMARY | 2025-04-23 11:15 | XMS_ITS | Encounter Summary ---
Author Organization [facility] Address [address] [place] [address] Care Team Providers Care Administrative Accountant Name Role Phone Nestor Fletcher MD Primary Care Provider [phone] Encounter Details Date Type Department Care Team (Late st Contact Info) Description 07/06/2020 AppLearn Message Enc [facility] Medical Group Family & Internal Medicine [address] [address] Nestor Fletcher MD [address] [place] [address] RE: Question Social History Tobacco Use [...] Sex Assigned at Female 10/30/2019 8:35 AM PRINT GRAPHIC DESIGNER Legal Sex Female 10:55 PM CDT Gender Identity Female 10/30/2019 8:35 AM PRINT GRAPHIC DESIGNER Sexual Orientation Straight 10/30/2019 8: 35 AM PRINT GRAPHIC DESIGNER COVID-19 Exposure Response Date Recorded In the last month, have you been in contact with someone who was confirmed or suspected to have Coronavirus / COVID-19? No / Unsure 07/09/2020 11:53 AM PRINT GRAPHIC DESIGNER documented as of this encounter Functional [...] AM CINTHYAT Kelly Hayes RN Active * Do you [...] 2:12 AM Kelly Wade RN Active documented as of this encounter Mental Status * Because of a physical, mental, or emotional condition, do you have serious difficulty concentrating, remembering, or making decisions? Answer Entry Date Author Status No 03/31/2020 2:12 AM Kelly Wade RN Active documented in this encounter Plan of Treatment Upcoming Encounters Date Type Department Care Team (Late st Contact Info) Description 08/26/2025 9:00 AM PRINT GRAPHIC DESIGNER Office Visit [facility] Medical Group Multispecialty Care - [facility] [address] [facility] [address] [place] [phone] Francisco Levi DO [address] [facility] [address] [place] [address] documented as of this encounter Visit Diagnoses Not on filedocumented in this encounter Additional Health Concerns Infection Onset Date Last Indicated Resolved Time COVID-19 Rule Out 07/06/2020 07/06/2020 07/08/2020 11:00 PM PRINT GRAPHIC DESIGNER COVID-19 Rule Out 07/09/2020 07/09/2020 07/12/2020 10:16 AM PRINT GRAPHIC DESIGNER COVID-19 Rule Out 11/14/2020 11/14/2020 11/15/2020 10:25 AM CDT COVID-19 Rule Out 01/05/2021 01/05/2021 01/05/2021 5:26 PM CDT COVID-19 Rule Out 12/02/2021 12/02/2021 12/02/2021 4:28 PM CDT COVID-19 Rule Out 05/20/2023 05/20/2023 05/20/2023 6:44 PM CDT COVID-19 Rule Out 09/11/2023 09/11/2023 09/11/2023 10:29 AM PRINT GRAPHIC DESIGNER COVID-19 Rule Out 03/18/2024 03/18/2024 03/18/2024 8:30 PM CDT COVID-19 Rule Out 05/27/2024 05/27/2024 05/27/2024 7:16 PM CDT documented as of this encounter Care Teams Administrative Accountant Relationship Specialty [place] [address] [place] [address] PCP - General FAMILY PRACTICE 05/15/20 documented as of this encounter
--- OUTSIDE RECORDS SUMMARY | 2025-04-23 11:15 | XMS_ITS | Encounter Summary ---
Author Organization [facility] Address [address] [place] [address] Care Team Providers Care Business Solutions Analyst Name Role Phone Nestor Fletcher MD Primary Care Provider [phone] Encounter Details Date Type Department Care Team (Late st Contact Info) Description 07/09/2020 DeluxeBox Message Enc [facility] Medical Group Family & Internal Medicine [facility] [address] [place] [address] Natali Polo, [place] [address] [facility] [address] [place] [address] Follow Up/Update Social History Tobacco Use [...] Sex Assigned at Female 10/30/2019 8:35 AM COLOR MIXER Legal Sex Female 10:55 PM CDT Gender Identity Female 10/30/2019 8:35 AM COLOR MIXER Sexual Orientation Straight 10/30/2019 8: 35 AM COLOR MIXER COVID-19 Exposure Response Date Recorded In the last month, have you been in contact with someone who was confirmed or suspected to have Coronavirus / COVID-19? No / Unsure 07/09/2020 11:53 AM COLOR MIXER documented as of this encounter Functional Status [...] st Contact Info) Description 08/26/2025 9:00 AM COLOR MIXER Office Visit [facility] Medical Group Multispecialty Care - [facility] [address] [place] [address] Francisco Levi DO [address] [facility] [address] [place] [address] documented as of this encounter Visit Diagnoses Not on filedocumented in this encounter Additional Health Concerns Infection Onset Date Last Indicated Resolved Time COVID-19 Rule Out 07/09/2020 07/09/2020 07/12/2020 10:16 AM COLOR MIXER COVID-19 Rule Out 11/14/2020 11/14/2020 11/15/2020 10:25 AM CDT COVID-19 Rule Out 01/05/2021 01/05/2021 01/05/2021 5:26 PM CDT COVID-19 Rule Out 12/02/2021 12/02/2021 12/02/2021 4:28 PM CDT COVID-19 Rule Out 05/20/2023 05/20/2023 05/20/2023 6:44 PM CDT COVID-19 Rule Out 09/11/2023 09/11/2023 09/11/2023 10:29 AM COLOR MIXER COVID-19 Rule Out 03/18/2024 03/18/2024 03/18/2024 8:30 PM CDT COVID-19 Rule Out 05/27/2024 05/27/2024 05/27/2024 7:16 PM CDT documented as of this encounter Care Teams Business Solutions Analyst Relationship Specialty [place] [address] [place] [address] PCP - General FAMILY PRACTICE 05/15/20 documented as of this encounter
--- OUTSIDE RECORDS SUMMARY | 2025-04-23 11:15 | XMS_ITS | Encounter Summary ---
Author Organization [facility] Address [address] [place] [address] Care Team Providers Care Systems Navigator Name Role Phone Nestor Fletcher MD Primary Care Provider [phone] Encounter Details Date Type Department Care Team (Late st Contact Info) Description 04/07/2022 TraceSecurity Message Enc [facility] Medical Group Foot & Ankle Specialists [facility] [address] [place] [address] Carlos A Ocasio, DPBrinda [address] [place] [address] Neurectomy Social History Tobacco Use Types [...] Assigned at Female 10/30/2019 8:35 AM PHOTOGRAPHIC PLATEMAKER Legal Sex Female 10:55 PM CDT Gender Identity Female 10/30/2019 8:35 AM PHOTOGRAPHIC PLATEMAKER Sexual Orientation Straight 10/30/2019 8: 35 AM PHOTOGRAPHIC PLATEMAKER COVID-19 Exposure Response Date Recorded In the [...] st Contact Info) Description 08/26/2025 9:00 AM PHOTOGRAPHIC PLATEMAKER Office Visit [facility] Medical Group Multispecialty Care - [facility] [address] [facility] [address] [place] [address] Francisco Levi DO [address] [facility] [address] [place] [address] documented as of this encounter Visit Diagnoses Not on filedocumented in this encounter Additional Health Concerns Infection Onset Date Last Indicated Resolved Time COVID-19 Rule Out 05/20/2023 05/20/2023 05/20/2023 6:44 PM CDT COVID-19 Rule Out 09/11/2023 09/11/2023 09/11/2023 10:29 AM PHOTOGRAPHIC PLATEMAKER COVID-19 Rule Out 03/18/2024 03/18/2024 03/18/2024 8:30 PM CDT COVID-19 Rule Out 05/27/2024 05/27/2024 05/27/2024 7:16 PM CDT Assessment Noted Time PHQ-9 Depression Total Score: 0 02/26/20 22 9:40 AM CDT documented as of this encounter Care Teams Systems Navigator Relationship Specialty [place] [address] [place] [address] PCP - General FAMILY PRACTICE 05/15/20 documented as of this encounter
--- OUTSIDE RECORDS SUMMARY | 2025-04-23 11:15 | XMS_ITS | Encounter Summary ---
Author Organization [facility] Address [address] [place] [address] Care Team Providers Care Dependency Program Director Name Role Phone Nestor Fletcher MD Primary Care Provider [phone] Encounter Details Date Type Department Care Team (Late st Contact Info) Description 06/10/2020 [employer] Message Enc [facility] Medical Group General Surgery - [place] [address] [facility], [address] [place] [address] [place] [address] [place] [address] Question Social History Tobacco Use Types Packs/Day [...] Sex Assigned at Female 10/30/2019 8:35 AM CHIEF GAUGER Legal Sex Female 10:55 PM CDT Gender Identity Female 10/30/2019 8:35 AM CHIEF GAUGER Sexual Orientation Straight 10/30/2019 8: 35 AM CHIEF GAUGER COVID-19 Exposure Response Date Recorded In the [...] st Contact Info) Description 08/26/2025 9:00 AM CHIEF GAUGER Office Visit [facility] Medical Group Multispecialty Care - [facility] [address] [facility] [address] [place] [address] Francisco Levi DO [address] [facility] [address] [place] [address] documented as of this encounter Visit Diagnoses Not on filedocumented in this encounter Additional Health Concerns Infection Onset Date Last Indicated Resolved Time COVID-19 Rule Out 06/26/2020 06/26/2020 06/27/2020 4:51 PM CDT COVID-19 Rule Out 07/06/2020 07/06/2020 07/08/2020 11:00 PM CHIEF GAUGER COVID-19 Rule Out 07/09/2020 07/09/2020 07/12/2020 10:16 AM CHIEF GAUGER COVID-19 Rule Out 11/14/2020 11/14/2020 11/15/2020 10:25 AM CDT COVID-19 Rule Out 01/05/2021 01/05/2021 01/05/2021 5:26 PM CDT COVID-19 Rule Out 12/02/2021 12/02/2021 12/02/2021 4:28 PM CDT COVID-19 Rule Out 05/20/2023 05/20/2023 05/20/2023 6:44 PM CDT COVID-19 Rule Out 09/11/2023 09/11/2023 09/11/2023 10:29 AM CHIEF GAUGER COVID-19 Rule Out 03/18/2024 03/18/2024 03/18/2024 8:30 PM CDT COVID-19 Rule Out 05/27/2024 05/27/2024 05/27/2024 7:16 PM CDT documented as of this encounter Care Teams Dependency Program Director Relationship Specialty [place] [address] [place] [address] PCP - General FAMILY PRACTICE 05/15/20 documented as of this encounter
--- OUTSIDE RECORDS SUMMARY | 2025-04-23 11:15 | XMS_ITS | Encounter Summary ---
Author Organization [facility] Address [address] [place] [address] Care Team Providers Care Commercial Credit Specialist Name Role Phone Nestor Fletcher MD Primary Care Provider [phone] Encounter Details Date Type Department Care Team (Late st Contact Info) Description 05/04/2022 [employer] Message Enc [facility] Medical Group Family & Internal Medicine [address] [address] Nestor Fletcher MD [address] [place] [address] Neck Social History Tobacco Use Types [...] Assigned at Female 10/30/2019 8:35 AM DOOR FRAME BUILDER Legal Sex Female 10:55 PM CDT Gender Identity Female 10/30/2019 8:35 AM DOOR FRAME BUILDER Sexual Orientation Straight 10/30/2019 8: 35 AM DOOR FRAME BUILDER COVID-19 Exposure Response Date Recorded In the [...] st Contact Info) Description 08/26/2025 9:00 AM DOOR FRAME BUILDER Office Visit [facility] Medical Group Multispecialty Care - [facility] [address] [facility] [address] [place] [address] Francisco Levi DO [address] [facility] [address] [place] [address] documented as of this encounter Visit Diagnoses Not on filedocumented in this encounter Additional Health Concerns Infection Onset Date Last Indicated Resolved Time COVID-19 Rule Out 05/20/2023 05/20/2023 05/20/2023 6:44 PM CDT COVID-19 Rule Out 09/11/2023 09/11/2023 09/11/2023 10:29 AM DOOR FRAME BUILDER COVID-19 Rule Out 03/18/2024 03/18/2024 03/18/2024 8:30 PM CDT COVID-19 Rule Out 05/27/2024 05/27/2024 05/27/2024 7:16 PM CDT Assessment Noted Time PHQ-9 Depression Total Score: 0 02/26/20 22 9:40 AM CDT documented as of this encounter Care Teams Commercial Credit Specialist Relationship Specialty [place] [address] [place] [address] PCP - General FAMILY PRACTICE 05/15/20 documented as of this encounter
--- OUTSIDE RECORDS SUMMARY | 2025-04-23 11:15 | XMS_ITS | Encounter Summary ---
Author Organization [facility] Address [address] [place] [address] Care Team Providers Care Vmware Systems Administrator Name Role Phone Nestor Fletcher MD Primary Care Provider [phone] Encounter Details Date Type Department Care Team (Late st Contact Info) Description 09/19/2020 Net[employer]uum Message Enc [facility] Medical Group Foot & Ankle Specialists [facility] [address] [place] [address] Carlos A Ocasio, ROSY [address] [place] [phone] RE: Question Social History Tobacco Use [...] Sex Assigned at Female 10/30/2019 8:35 AM AD TRAFFICKER Legal Sex Female 10:55 PM CDT Gender Identity Female 10/30/2019 8:35 AM AD TRAFFICKER Sexual Orientation Straight 10/30/2019 8: 35 AM AD TRAFFICKER COVID-19 Exposure Response Date Recorded In the last month, have you been in contact with someone who was confirmed or suspected to have Coronavirus / COVID-19? No / Unsure 08/20/2020 8:40 AM AD TRAFFICKER documented as of this encounter Functional Status [...] st Contact Info) Description 08/26/2025 9:00 AM AD TRAFFICKER Office Visit [facility] Medical Group Multispecialty Care - [facility] [address] [facility] [address] [place] [phone] Francisco Levi DO [address] [facility] [address] [place] [address] documented as of this encounter Visit Diagnoses [...] Rule Out 09/11/2023 09/11/2023 09/11/2023 10:29 AM AD TRAFFICKER COVID-19 Rule Out 03/18/2024 03/18/2024 03/18/2024 8:30 PM CDT COVID-19 Rule Out 05/27/2024 05/27/2024 05/27/2024 7:16 PM CDT documented as of this encounter Care Teams Vmware Systems Administrator Relationship Specialty [place] [address] [place] [address] PCP - General FAMILY PRACTICE 05/15/20 documented as of this encounter
--- OUTSIDE RECORDS SUMMARY | 2025-04-23 11:15 | XMS_ITS | Encounter Summary ---
Author Organization [facility] Address [address] [place] [address] Care Team Providers Care Collar Pointer Name Role Phone Nestor Fletcher MD Primary Care Provider [phone] Encounter Details Date Type Department Care Team (Late st Contact Info) Description 08/11/2020 [employer] Message Enc [facility] Medical Group Family & Internal Medicine [address] [address] [place] Fletcher [place] [id number] [place] [address] Question Social History Tobacco Use Types [...] Assigned at Female 10/30/2019 8:35 AM CLOTH EXAMINER Legal Sex Female 10:55 PM CDT Gender Identity Female 10/30/2019 8:35 AM CLOTH EXAMINER Sexual Orientation Straight 10/30/2019 8: 35 AM CLOTH EXAMINER COVID-19 Exposure Response Date Recorded In the last month, have you been in contact with someone who was confirmed or suspected to have Coronavirus / COVID-19? No / Unsure 08/11/2020 8:38 AM CLOTH EXAMINER documented as of this encounter Functional Status [...] Dr. Fletcher to Discuss possible sleep study. H EXAMINER * Edie Richards MA - 08/11/2020 4:14 PM CST Sounds like you need a appt. To discuss a sleep study with doctor. Just call office and schedule anappt. [phone]. Thank you H EXAMINER documented in this encounter Plan of Treatment Upcoming Encounters Date Type Department Care Team (Late st Contact Info) Description 08/26/2025 9:00 AM CLOTH EXAMINER Office Visit [facility] Medical Group Multispecialty Care - [facility] [address] [place] [address] Francisco Levi DO [address] [facility] [address] [place] [address] documented as of this encounter Visit Diagnoses [...] Out 09/11/2023 09/11/2023 09/11/2023 10:29 AM CLOTH EXAMINER COVID-19 Rule Out 03/18/2024 03/18/2024 03/18/2024 8:30 PM CDT COVID-19 Rule Out 05/27/2024 05/27/2024 05/27/2024 7:16 PM CDT documented as of this encounter Care Teams Collar Pointer Relationship Specialty [place] [address] [place] [address] PCP - General FAMILY PRACTICE 05/15/20 documented as of this encounter
--- OUTSIDE RECORDS SUMMARY | 2025-04-23 11:15 | XMS_ITS | Encounter Summary ---
Author Organization [facility] Address [address] [place] [address] Care Team Providers Care Dietetic Technician Name Role Phone Nestor Fletcher MD Primary Care Provider [phone] Encounter Details Date Type Department Care Team (Late st Contact Info) Description 09/29/[address] [facility] Medical Group Family & Internal Medicine [facility] [address] [place] [address] Natali Polo APNP [address] [facility] [address] [place] [address] RE: Question Social History Tobacco Use [...] Sex Assigned at Female 10/30/2019 8:35 AM PHOTOFINISHING LABORATORY WORKER Legal Sex Female 10:55 PM CDT Gender Identity Female 10/30/2019 8:35 AM PHOTOFINISHING LABORATORY WORKER Sexual Orientation Straight 10/30/2019 8: 35 AM PHOTOFINISHING LABORATORY WORKER documented as of this encounter Functional [...] st Contact Info) Description 08/26/2025 9:00 AM PHOTOFINISHING LABORATORY WORKER Office Visit [facility] Medical Group Multispecialty Care - [facility] [address] [place] [address] Francisco Levi DO [address] [facility] [address] [place] [address] documented as of this encounter Visit Diagnoses [...] Rule Out 09/11/2023 09/11/2023 09/11/2023 10:29 AM PHOTOFINISHING LABORATORY WORKER COVID-19 Rule Out 03/18/2024 03/18/2024 03/18/2024 8:30 PM CDT COVID-19 Rule Out 05/27/2024 05/27/2024 05/27/2024 7:16 PM CDT documented as of this encounter Care Teams Dietetic Technician Relationship Specialty [place] [address] [place] [address] PCP - General FAMILY PRACTICE 05/15/20 documented as of this encounter
--- OUTSIDE RECORDS SUMMARY | 2025-04-23 11:15 | XMS_ITS | Encounter Summary ---
Author Organization [facility] Address [address] [place] [address] Care Team Providers Care Custody Officer Name Role Phone Nestor Fletcher MD Primary Care Provider [phone] Encounter Details Date Type Department Care Team (Latest Contact Info) Description 07/02/2020 [employer] Message Enc [facility] Medical Group Multispecialty Care - [facility] [address] [place] [address] Francisco Levi DO [address] [facility] [address] [place] [address] RE: Medication Questions Social History Tobacco Use [...] Sex Assigned at Female 10/30/2019 8:35 AM REIMBURSEMENT ANALYST Legal Sex Female 10:55 PM CDT Gender Identity Female 10/30/2019 8:35 AM REIMBURSEMENT ANALYST Sexual Orientation Straight 10/30/2019 8: 35 AM REIMBURSEMENT ANALYST COVID-19 Exposure Response Date Recorded In [...] st Contact Info) Description 08/26/2025 9:00 AM REIMBURSEMENT ANALYST Office Visit [facility] Medical Group Multispecialty Care - [facility] [address] [place] [address] Francisco Levi, [address] [facility] [address] [place] [address] documented as of this encounter Visit Diagnoses Not on filedocumented in this encounter Additional Health Concerns Infection Onset Date Last Indicated Resolved Time COVID-19 Rule Out 07/06/2020 07/06/2020 07/08/2020 11:00 PM REIMBURSEMENT ANALYST COVID-19 Rule Out 07/09/2020 07/09/2020 07/12/2020 10:16 AM REIMBURSEMENT ANALYST COVID-19 Rule Out 11/14/2020 11/14/2020 11/15/2020 10:25 AM CDT COVID-19 Rule Out 01/05/2021 01/05/2021 01/05/2021 5:26 PM CDT COVID-19 Rule Out 12/02/2021 12/02/2021 12/02/2021 4:28 PM CDT COVID-19 Rule Out 05/20/2023 05/20/2023 05/20/2023 6:44 PM CDT COVID-19 Rule Out 09/11/2023 09/11/2023 09/11/2023 10:29 AM REIMBURSEMENT ANALYST COVID-19 Rule Out 03/18/2024 03/18/2024 03/18/2024 8:30 PM CDT COVID-19 Rule Out 05/27/2024 05/27/2024 05/27/2024 7:16 PM CDT documented as of this encounter Care Teams Custody Officer Relationship Specialty [place] [address] [place] [address] PCP - General FAMILY PRACTICE 05/15/20 documented as of this encounter
--- OUTSIDE RECORDS SUMMARY | 2025-04-23 11:15 | XMS_ITS | Encounter Summary ---
Author Organization [facility] Address [address] [place] [address] Care Team Providers Care Regulatory Affairs Consultant Name Role Phone Nestor Fletcher MD Primary Care Provider [phone] Encounter Details Date Type Department Care Team (Late st Contact Info) Description 07/04/2020 [employer] [facility] [address] [place] [address] [place] [address] [place] [address] Test Results Social History Tobacco [...] Sex Assigned at Female 10/30/2019 8:35 AM PSYCHOLOGIST RESEARCH ASSISTANT Legal Sex Female 10:55 PM CDT Gender Identity Female 10/30/2019 8:35 AM PSYCHOLOGIST RESEARCH ASSISTANT Sexual Orientation Straight 10/30/2019 8: 35 AM PSYCHOLOGIST RESEARCH ASSISTANT COVID-19 Exposure Response Date Recorded In [...] CST Was addressed at video visit w/Natali HOLOGIST RESEARCH ASSISTANT documented in this encounter Plan of Treatment Upcoming Encounters Date Type Department Care Team (Late st Contact Info) Description 08/26/2025 9:00 AM PSYCHOLOGIST RESEARCH ASSISTANT Office Visit [facility] Medical Group Multispecialty Care - [facility] [address] [facility] [place] [address] Francisco Levi DO 3 [facility] [address] [place] [address] documented as of this encounter Visit Diagnoses Not on filedocumented in this encounter Additional Health Concerns Infection Onset Date Last Indicated Resolved Time COVID-19 Rule Out 07/06/2020 07/06/2020 07/08/2020 11:00 PM PSYCHOLOGIST RESEARCH ASSISTANT COVID-19 Rule Out 07/09/2020 07/09/2020 07/12/2020 10:16 AM PSYCHOLOGIST RESEARCH ASSISTANT COVID-19 Rule Out 11/14/2020 11/14/2020 11/15/2020 10:25 AM CDT COVID-19 Rule Out 01/05/2021 01/05/2021 01/05/2021 5:26 PM CDT COVID-19 Rule Out 12/02/2021 12/02/2021 12/02/2021 4:28 PM CDT COVID-19 Rule Out 05/20/2023 05/20/2023 05/20/2023 6:44 PM CDT COVID-19 Rule Out 09/11/2023 09/11/2023 09/11/2023 10:29 AM PSYCHOLOGIST RESEARCH ASSISTANT COVID-19 Rule Out 03/18/2024 03/18/2024 03/18/2024 8:30 PM CDT COVID-19 Rule Out 05/27/2024 05/27/2024 05/27/2024 7:16 PM CDT documented as of this encounter Care Teams Regulatory Affairs Consultant Relationship Specialty [place] [address] [place] [address] PCP - General FAMILY PRACTICE 05/15/20 documented as of this encounter
--- OUTSIDE RECORDS SUMMARY | 2025-04-23 11:15 | XMS_ITS | Encounter Summary ---
Author Organization [facility] Address [address] [place] [address] Care Team Providers Care Boomswing Operator Name Role Phone Nestor Fletcher MD Primary Care Provider [phone] Encounter Details Date Type Department Care Team (Late st Contact Info) Description 07/09/2020 [employer] Message Enc [facility] Medical Group Multispecialty Care - [facility] [address] [place] [address] Francisco Levi DO [address] [facility] [address] [place] [address] RE: Question Social History Tobacco Use Types [...] Sex Assigned at Female 10/30/2019 8:35 AM PATIENT CARE TECHNICIAN Legal Sex Female 10:55 PM CDT Gender Identity Female 10/30/2019 8:35 AM PATIENT CARE TECHNICIAN Sexual Orientation Straight 10/30/2019 8: 35 AM PATIENT CARE TECHNICIAN COVID-19 Exposure Response Date Recorded In the last month, have you been in contact with someone who was confirmed or suspected to have Coronavirus / COVID-19? No / Unsure 07/09/2020 11:53 AM PATIENT CARE TECHNICIAN documented as of this encounter Functional [...] st Contact Info) Description 08/26/2025 9:00 AM PATIENT CARE TECHNICIAN Office Visit [facility] Medical Group Multispecialty Care - [facility] [address] [facility] [facility] [place] [address] Francisco Levi, [address] [facility] [address] [place] [address] documented as of this encounter Visit Diagnoses Not on filedocumented in this encounter Additional Health Concerns Infection Onset Date Last Indicated Resolved Time COVID-19 Rule Out 07/09/2020 07/09/2020 07/12/2020 10:16 AM PATIENT CARE TECHNICIAN COVID-19 Rule Out 11/14/2020 11/14/2020 11/15/2020 10:25 AM CDT COVID-19 Rule Out 01/05/2021 01/05/2021 01/05/2021 5:26 PM CDT COVID-19 Rule Out 12/02/2021 12/02/2021 12/02/2021 4:28 PM CDT COVID-19 Rule Out 05/20/2023 05/20/2023 05/20/2023 6:44 PM CDT COVID-19 Rule Out 09/11/2023 09/11/2023 09/11/2023 10:29 AM PATIENT CARE TECHNICIAN COVID-19 Rule Out 03/18/2024 03/18/2024 03/18/2024 8:30 PM CDT COVID-19 Rule Out 05/27/2024 05/27/2024 05/27/2024 7:16 PM CDT documented as of this encounter Care Teams Boomswing Operator Relationship Specialty [place] [address] [place] [address] PCP - General FAMILY PRACTICE 05/15/20 documented as of this encounter
--- OUTSIDE RECORDS SUMMARY | 2025-04-23 11:15 | XMS_ITS | Encounter Summary ---
Author Organization [facility] Address [address] [place] [address] Care Team Providers Care Metal Furnace Operator Name Role Phone Nestor Fletcher MD Primary Care Provider [phone] Encounter Details Date Type Department Care Team (Late st Contact Info) Description 06/03/2022 Sing[employer] Message Enc [facility] Medical Group Multispecialty Care - [facility] [address] [facility], [address] [place] [phone] Eusebio Ron MD 3 [place] [address] Surgery Social History Tobacco Use Types Packs/Day [...] Sex Assigned at Female 10/30/2019 8:35 AM WOOLING MACHINE OPERATOR Legal Sex Female 10:55 PM CDT Gender Identity Female 10/30/2019 8:35 AM WOOLING MACHINE OPERATOR Sexual Orientation Straight 10/30/2019 8: 35 AM WOOLING MACHINE OPERATOR COVID-19 Exposure Response Date Recorded [...] Hernandez, Jennif er I, RN Active * [place] Suicide Severity Rating Scale (Screener/Recent Self-Report) Question Answer Date of Assessment Author Status 1. Wish to be (Past 1 Month) No 06/06/2022 6:47 AM CINTHYAT Renu Hernandez RN Act bryon 2. Non-Specific Active Suicidal Thoughts (Past 1 Month) No 06/06/2022 6:47 AM CINTHYAT Renu Hernandez RN Act bryon 6. Suicidal Behavior (Lifetime) No 06/06/2022 6:47 AM CINTHYAT Renu Hernandez RN Act bryon documented as of this encounter Mental Status * Question Answer Entry Date Author Status Because of a physical, mental, or emotional condition, do you have serious difficulty concentrating, remembering, or making decisions? No 06/06/2022 12:00 PM CINTHYAT Georgia Lovell RN Active * Because of a physical, mental, or emotional condition, do you have serious difficulty concentrating, remembering, or making decisions? Answer Entry Date Author Status No 03/31/2020 2:12 AM CINTHYAT Kelly Hayes RN Active documented in this encounter Plan of Treatment Upcoming Encounters Date Type Department Care Team (Late st Contact Info) Description 08/26/2025 9:00 AM WOOLING MACHINE OPERATOR Office Visit [facility] Medical Group Multispecialty Care - [facility] [address] [place] [address] Francisco Levi DO [facility] [address] [place] [address] documented as of this encounter Visit Diagnoses Not on filedocumented in this encounter Additional Health Concerns Infection Onset Date Last Indicated Resolved Time COVID-19 Rule Out 05/20/2023 05/20/2023 05/20/2023 6:44 PM CDT COVID-19 Rule Out 09/11/2023 09/11/2023 09/11/2023 10:29 AM WOOLING MACHINE OPERATOR COVID-19 Rule Out 03/18/2024 03/18/2024 03/18/2024 8:30 PM CDT COVID-19 Rule Out 05/27/2024 05/27/2024 05/27/2024 7:16 PM CDT Assessment Noted Time PHQ-9 Depression Total Score: 0 02/26/20 22 9:40 AM CDT documented as of this encounter Care Teams Metal Furnace Operator Relationship Specialty [place] [address] [place] [address] PCP - General FAMILY PRACTICE 05/15/20 documented as of this encounter
--- OUTSIDE RECORDS SUMMARY | 2025-04-23 11:15 | XMS_ITS | Encounter Summary ---
Author Organization [facility] Address [address] [place] [address] Care Team Providers Care Adult Basic Education Manager Name Role Phone Nestor Fletcher MD Primary Care Provider [phone] Encounter Details Date Type Department Care Team (Late st Contact Info) Description 06/30/2020 [employer] Message Enc [facility] Medical Group Multispecialty Care - [facility] [address] [place] [address] Francisco Levi DO [address] [facility] [address] [place] [address] RE: Question Social History Tobacco Use Types [...] Sex Assigned at Female 10/30/2019 8:35 AM CASKET UPHOLSTERER Legal Sex Female 10:55 PM CDT Gender Identity Female 10/30/2019 8:35 AM CASKET UPHOLSTERER Sexual Orientation Straight 10/30/2019 8: 35 AM CASKET UPHOLSTERER COVID-19 Exposure Response Date Recorded In the [...] st Contact Info) Description 08/26/2025 9:00 AM CASKET UPHOLSTERER Office Visit [facility] Medical Group Multispecialty Care - [facility] [address] [place] [address] Francisco Levi, [address] [facility] [address] [place] [address] documented as of this encounter Visit Diagnoses Not on filedocumented in this encounter Additional Health Concerns Infection Onset Date Last Indicated Resolved Time COVID-19 Rule Out 07/06/2020 07/06/2020 07/08/2020 11:00 PM CASKET UPHOLSTERER COVID-19 Rule Out 07/09/2020 07/09/2020 07/12/2020 10:16 AM CASKET UPHOLSTERER COVID-19 Rule Out 11/14/2020 11/14/2020 11/15/2020 10:25 AM CDT COVID-19 Rule Out 01/05/2021 01/05/2021 01/05/2021 5:26 PM CDT COVID-19 Rule Out 12/02/2021 12/02/2021 12/02/2021 4:28 PM CDT COVID-19 Rule Out 05/20/2023 05/20/2023 05/20/2023 6:44 PM CDT COVID-19 Rule Out 09/11/2023 09/11/2023 09/11/2023 10:29 AM CASKET UPHOLSTERER COVID-19 Rule Out 03/18/2024 03/18/2024 03/18/2024 8:30 PM CDT COVID-19 Rule Out 05/27/2024 05/27/2024 05/27/2024 7:16 PM CDT documented as of this encounter Care Teams Adult Basic Education Manager Relationship Specialty [place] [address] [place] [address] PCP - General FAMILY PRACTICE 05/15/20 documented as of this encounter
--- OUTSIDE RECORDS SUMMARY | 2025-04-23 11:15 | XMS_ITS | Encounter Summary ---
Author Organization [facility] Address [address] [place] [address] Care Team Providers Care Manufacturing Mechanic Name Role Phone Nestor Fletcher MD Primary Care Provider [phone] Encounter Details Date Type Department Care Team (Late st Contact Info) Description 05/04/2022 [employer] Message Enc [facility] Medical Group Multispecialty Care - [facility] [address] [facility] [place] [phone] Eusebio Ron MD 3 [place] [address] Neck Social History Tobacco Use Types Packs/Day [...] Sex Assigned at Female 10/30/2019 8:35 AM OPTIMIZATION CONSULTANT Legal Sex Female 10:55 PM CDT Gender Identity Female 10/30/2019 8:35 AM OPTIMIZATION CONSULTANT Sexual Orientation Straight 10/30/2019 8: 35 AM OPTIMIZATION CONSULTANT COVID-19 Exposure Response Date Recorded In [...] st Contact Info) Description 08/26/2025 9:00 AM OPTIMIZATION CONSULTANT Office Visit [facility] Medical Group Multispecialty Care - [facility] [address] [place] [address] Dagoberto LevishaheenDO [address] [facility] [address] [place] [address] documented as of this encounter Visit Diagnoses Not on filedocumented in this encounter Additional Health Concerns Infection Onset Date Last Indicated Resolved Time COVID-19 Rule Out 05/20/2023 05/20/2023 05/20/2023 6:44 PM CDT COVID-19 Rule Out 09/11/2023 09/11/2023 09/11/2023 10:29 AM OPTIMIZATION CONSULTANT COVID-19 Rule Out 03/18/2024 03/18/2024 03/18/2024 8:30 PM CDT COVID-19 Rule Out 05/27/2024 05/27/2024 05/27/2024 7:16 PM CDT Assessment Noted Time PHQ-9 Depression Total Score: 0 02/26/20 22 9:40 AM CDT documented as of this encounter Care Teams Manufacturing Mechanic Relationship Specialty [place] [address] [place] [address] PCP - General FAMILY PRACTICE 05/15/20 documented as of this encounter
--- OUTSIDE RECORDS SUMMARY | 2025-04-23 11:15 | XMS_ITS | Encounter Summary ---
Author Organization [facility] Address [address] [place] [address] Care Team Providers Care Multimedia Programmer Name Role Phone None, Provider Primary Care Provider Nestor Ma MD Primary Care Provider [phone] Encounter Details Date Type Department Care Team (Late st Contact Info) Description 05/14/2020 [employer] Message Enc [facility] Medical Group Family & Internal Medicine [facility] [address] [place] [address] Nestor Fletcher MD [address] [place] [address] RE: Question Social History Tobacco Use [...] Sex Assigned at Female 10/30/2019 8:35 AM FULL STACK NET DEVELOPER Legal Sex Female 10:55 PM CDT Gender Identity Female 10/30/2019 8:35 AM FULL STACK NET DEVELOPER Sexual Orientation Straight 10/30/2019 8: 35 AM FULL STACK NET DEVELOPER COVID-19 Exposure Response Date Recorded In [...] st Contact Info) Description 08/26/2025 9:00 AM FULL STACK NET DEVELOPER Office Visit [facility] Medical Group Multispecialty Care - [facility] [address] [facility] [address] [place] [phone] Francisco Levi DO [address] [facility] [address] [place] [address] documented as of this encounter Visit Diagnoses Not on filedocumented in this encounter Additional Health Concerns Infection Onset Date Last Indicated Resolved Time COVID-19 Rule Out 05/15/2020 05/15/2020 05/16/2020 8:21 PM CDT COVID-19 Rule Out 05/25/2020 05/25/2020 05/27/2020 12:21 AM CDT COVID-19 Rule Out 06/26/2020 06/26/2020 06/27/2020 4:51 PM CDT COVID-19 Rule Out 07/06/2020 07/06/2020 07/08/2020 11:00 PM FULL STACK NET DEVELOPER COVID-19 Rule Out 07/09/2020 07/09/2020 07/12/2020 10:16 AM FULL STACK NET DEVELOPER COVID-19 Rule Out 11/14/2020 11/14/2020 11/15/2020 10:25 AM CDT COVID-19 Rule Out 01/05/2021 01/05/2021 01/05/2021 5:26 PM CDT COVID-19 Rule Out 12/02/2021 12/02/2021 12/02/2021 4:28 PM CDT COVID-19 Rule Out 05/20/2023 05/20/2023 05/20/2023 6:44 PM CDT COVID-19 Rule Out 09/11/2023 09/11/2023 09/11/2023 10:29 AM FULL STACK NET DEVELOPER COVID-19 Rule Out 03/18/2024 03/18/2024 03/18/2024 8:30 PM CDT COVID-19 Rule Out 05/27/2024 05/27/2024 05/27/2024 7:16 PM CDT documented as of this encounter Care Teams Multimedia Programmer Relationship Specialty Start Date End Date None, Provider, PCP - General 03/25/20 05/14/20 [place] [address] [place] [address] PCP - General FAMILY PRACTICE 05/15/20 documented as of this encounter
--- OUTSIDE RECORDS SUMMARY | 2025-04-23 11:15 | XMS_ITS | Encounter Summary ---
Author Organization [facility] Address [address] [place] [address] Care Team Providers Care Sulfonator Operator Name Role Phone Nestor Fletcher MD Primary Care Provider [phone] Encounter Details Date Type Department Care Team (Late st Contact Info) Description 04/22/2022 [employer] Message Enc [facility] Medical Group Family & Internal Medicine [address] [address] Nestor Fletcher MD [address] [place] [address] Pain med Social History Tobacco Use [...] Sex Assigned at Female 10/30/2019 8:35 AM BALL SHAGGER Legal Sex Female 10:55 PM CDT Gender Identity Female 10/30/2019 8:35 AM BALL SHAGGER Sexual Orientation Straight 10/30/2019 8: 35 AM BALL SHAGGER COVID-19 Exposure Response Date Recorded In the [...] st Contact Info) Description 08/26/2025 9:00 AM BALL SHAGGER Office Visit [facility] Medical Group Multispecialty Care - [address] [place] [address] Francisco Levi DO [address] [facility] [address] [place] [address] documented as of this encounter Visit Diagnoses Not on filedocumented in this encounter Additional Health Concerns Infection Onset Date Last Indicated Resolved Time COVID-19 Rule Out 05/20/2023 05/20/2023 05/20/2023 6:44 PM CDT COVID-19 Rule Out 09/11/2023 09/11/2023 09/11/2023 10:29 AM BALL SHAGGER COVID-19 Rule Out 03/18/2024 03/18/2024 03/18/2024 8:30 PM CDT COVID-19 Rule Out 05/27/2024 05/27/2024 05/27/2024 7:16 PM CDT Assessment Noted Time PHQ-9 Depression Total Score: 0 02/26/20 22 9:40 AM CDT documented as of this encounter Care Teams Sulfonator Operator Relationship Specialty [place] [address] [place] [address] PCP - General FAMILY PRACTICE 05/15/20 documented as of this encounter
--- OUTSIDE RECORDS SUMMARY | 2025-04-23 11:15 | XMS_ITS | Encounter Summary ---
Author Organization [facility] Address [address] [place] [address] Care Team Providers Care Editor News Name Role Phone Nestor Fletcher MD Primary Care Provider [phone] Encounter Details Date Type Department Care Team (Late st Contact Info) Description 06/17/2020 [employer] Message Enc [facility] Medical [facility] Multispecialty Care - [facility] [address] [place] [address] Francisco Levi DO [address] [place] [address] RE: Question Social History Tobacco Use Types [...] Sex Assigned at Female 10/30/2019 8:35 AM HEEL ROOM SUPERVISOR Legal Sex Female 10:55 PM CDT Gender Identity Female 10/30/2019 8:35 AM HEEL ROOM SUPERVISOR Sexual Orientation Straight 10/30/2019 8: 35 AM HEEL ROOM SUPERVISOR COVID-19 Exposure Response Date Recorded [...] st Contact Info) Description 08/26/2025 9:00 AM HEEL ROOM SUPERVISOR Office Visit [facility] Medical [facility] Multispecialty Care - [facility] [address] [place] [address] Fracnisco Levi, [address] [place] [address] documented as of this encounter Visit Diagnoses Not on filedocumented in this encounter Additional Health Concerns Infection Onset Date Last Indicated Resolved Time COVID-19 Rule Out 06/26/2020 06/26/2020 06/27/2020 4:51 PM CDT COVID-19 Rule Out 07/06/2020 07/06/2020 07/08/2020 11:00 PM HEEL ROOM SUPERVISOR COVID-19 Rule Out 07/09/2020 07/09/2020 07/12/2020 10:16 AM HEEL ROOM SUPERVISOR COVID-19 Rule Out 11/14/2020 11/14/2020 11/15/2020 10:25 AM CDT COVID-19 Rule Out 01/05/2021 01/05/2021 01/05/2021 5:26 PM CDT COVID-19 Rule Out 12/02/2021 12/02/2021 12/02/2021 4:28 PM CDT COVID-19 Rule Out 05/20/2023 05/20/2023 05/20/2023 6:44 PM CDT COVID-19 Rule Out 09/11/2023 09/11/2023 09/11/2023 10:29 AM HEEL ROOM SUPERVISOR COVID-19 Rule Out 03/18/2024 03/18/2024 03/18/2024 8:30 PM CDT COVID-19 Rule Out 05/27/2024 05/27/2024 05/27/2024 7:16 PM CDT documented as of this encounter Care Teams Editor News Relationship Specialty [place] [address] [place] [address] PCP - General FAMILY PRACTICE 05/15/20 documented as of this encounter
--- OUTSIDE RECORDS SUMMARY | 2025-04-23 11:15 | XMS_ITS | Encounter Summary ---
Author Organization [facility] Address [address] [place] [address] Care Team Providers Care Roofing Machine Operator Name Role Phone Nestor Fletcher MD Primary Care Provider [phone] Encounter Details Date Type Department Care Team (Late st Contact Info) Description 04/13/2022 Re[employer] Message Enc [facility] Medical Group Family & Internal Medicine [address] [address] Nestor Fletcher MD [address] [place] [address] Restless legs Social History Tobacco Use [...] Sex Assigned at Female 10/30/2019 8:35 AM ELECTRICAL APPLIANCE REPAIRER Legal Sex Female 10:55 PM CDT Gender Identity Female 10/30/2019 8:35 AM ELECTRICAL APPLIANCE REPAIRER Sexual Orientation Straight 10/30/2019 8: 35 AM ELECTRICAL APPLIANCE REPAIRER COVID-19 Exposure Response Date Recorded In [...] st Contact Info) Description 08/26/2025 9:00 AM ELECTRICAL APPLIANCE REPAIRER Office Visit [facility] Medical Group Multispecialty Care - [facility] [address] [place] [phone] Francisco Levi DO [address] [facility] [address] [facility] [address] [place] [address] documented as of this encounter Visit Diagnoses Not on filedocumented in this encounter Additional Health Concerns Infection Onset Date Last Indicated Resolved Time COVID-19 Rule Out 05/20/2023 05/20/2023 05/20/2023 6:44 PM CDT COVID-19 Rule Out 09/11/2023 09/11/2023 09/11/2023 10:29 AM ELECTRICAL APPLIANCE REPAIRER COVID-19 Rule Out 03/18/2024 03/18/2024 03/18/2024 8:30 PM CDT COVID-19 Rule Out 05/27/2024 05/27/2024 05/27/2024 7:16 PM CDT Assessment Noted Time PHQ-9 Depression Total Score: 0 02/26/20 22 9:40 AM CDT documented as of this encounter Care Teams Roofing Machine Operator Relationship Specialty [place] [address] [place] [address] PCP - General FAMILY PRACTICE 05/15/20 documented as of this encounter
--- OUTSIDE RECORDS SUMMARY | 2025-04-23 11:15 | XMS_ITS | Encounter Summary ---
Author Organization [facility] Address [address] [place] [address] Care Team Providers Care Seal Skinner Name Role Phone Nestor Fletcher MD Primary Care Provider [phone] Encounter Details Date Type Department Care Team (Late st Contact Info) Description 07/31/2020 [employer] Message [facility] [address] Cullen Sprague MD [address] [address] RE: Question Social History Tobacco [...] Sex Assigned at Female 10/30/2019 8:35 AM X RAY EQUIPMENT MECHANIC Legal Sex Female 10:55 PM CDT Gender Identity Female 10/30/2019 8:35 AM X RAY EQUIPMENT MECHANIC Sexual Orientation Straight 10/30/2019 8: 35 AM X RAY EQUIPMENT MECHANIC COVID-19 Exposure Response Date Recorded In the last month, have you been in contact with someone who was confirmed or suspected to have Coronavirus / COVID-19? No / Unsure 07/21/2020 10:16 AM X RAY EQUIPMENT MECHANIC documented as of this encounter Functional Status [...] - 08/03/2020 11:12 AM CST See below X RAY EQUIPMENT MECHANIC * Vee Eddy RN - 08/03/2020 8:39 AM CST Please advise X RAY EQUIPMENT MECHANIC documented in this encounter Plan of Treatment Upcoming Encounters Date Type Department Care Team (Late st Contact Info) Description 08/26/2025 9:00 AM X RAY EQUIPMENT MECHANIC Office Visit [facility] Medical Group Multispecialty Care - [facility] [address] [place] [address] Francisco Levi DO [address] [place] [address] documented as of this encounter Visit Diagnoses [...] Rule Out 09/11/2023 09/11/2023 09/11/2023 10:29 AM X RAY EQUIPMENT MECHANIC COVID-19 Rule Out 03/18/2024 03/18/2024 03/18/2024 8:30 PM CDT COVID-19 Rule Out 05/27/2024 05/27/2024 05/27/2024 7:16 PM CDT documented as of this encounter Care Teams Seal Skinner Relationship Specialty [place] [address] [place] [address] PCP - General FAMILY PRACTICE 05/15/20 documented as of this encounter
--- OUTSIDE RECORDS SUMMARY | 2025-04-23 11:15 | XMS_ITS | Encounter Summary ---
Author Organization [facility] Address [address] [place] [address] Care Team Providers Care Hl7 Interface Developer Name Role Phone Nestor Fletcher MD Primary Care Provider [phone] Encounter Details Date Type Department Care Team (Late st Contact Info) Description 05/11/2022 [employer] Message Enc [facility] Medical Group Family & Internal Medicine [address] [address] Nestor Fletcher MD [address] [place] [address] Illness Social History Tobacco Use Types [...] Sex Assigned at Female 10/30/2019 8:35 AM IS MANAGER Legal Sex Female 10:55 PM CDT Gender Identity Female 10/30/2019 8:35 AM IS MANAGER Sexual Orientation Straight 10/30/2019 8: 35 AM IS MANAGER COVID-19 Exposure Response Date Recorded In [...] PM CDT Micheline Matthews RN Active * [place] Suicide Severity Rating Scale (Screener/Recent Self-Report) Question [...] in this encounter Progress Notes * Marina Archer, RN - 05/11/2022 11:[address] Fletcher, can give Zpak documented in this encounter Plan of Treatment Upcoming Encounters Date Type Department Care Team (Late st Contact Info) Description 08/26/2025 9:00 AM IS MANAGER Office Visit [facility] Medical Group Multispecialty Care - [facility] [address] [place] [address] Francisco Levi DO [address] [place] [address] documented as of this encounter Visit Diagnoses Not on filedocumented in this encounter Additional Health Concerns Infection Onset Date Last Indicated Resolved Time COVID-19 Rule Out 05/20/2023 05/20/2023 05/20/2023 6:44 PM CDT COVID-19 Rule Out 09/11/2023 09/11/2023 09/11/2023 10:29 AM IS MANAGER COVID-19 Rule Out 03/18/2024 03/18/2024 03/18/2024 8:30 PM CDT COVID-19 Rule Out 05/27/2024 05/27/2024 05/27/2024 7:16 PM CDT Assessment Noted Time PHQ-9 Depression Total Score: 0 02/26/20 22 9:40 AM CDT documented as of this encounter Care Teams Hl7 Interface Developer Relationship Specialty [place] [address] [place] [address] PCP - General FAMILY PRACTICE 05/15/20 documented as of this encounter
--- OUTSIDE RECORDS SUMMARY | 2025-04-23 11:16 | XMS_ITS | Encounter Summary ---
Author Organization [facility] Address [address] [place] [address] Care Team Providers Care Project Assistant Name Role Phone Nestor Fletcher MD Primary Care Provider [phone] Encounter Details Date Type Department Care Team (Late st Contact Info) Description 12/26/2022 [email or web address] Message Enc [facility] Medical Group Family & Internal Medicine [address] [address] Nestor Fletcher MD [address] [place] [address] Pain Social History Tobacco Use Types [...] Sex Assigned at Female 10/30/2019 8:35 AM FINE ARTS MODEL Legal Sex Female 10:55 PM CDT Gender Identity Female 10/30/2019 8:35 AM FINE ARTS MODEL Sexual Orientation Straight 10/30/2019 8: 35 AM FINE ARTS MODEL COVID-19 Exposure Response Date Recorded In [...] PM CDT Kayli Palencia RN Active * [place] Suicide Severity Rating Scale (Screener/Recent Self-Report) Question [...] st Contact Info) Description 08/26/2025 9:00 AM FINE ARTS MODEL Office Visit [facility] Medical Group Multispecialty Care - [facility] [address] [place] [address] Francisco Levi, [address] [place] [address] documented as of this encounter Goals Goal [...] Rule Out 09/11/2023 09/11/2023 09/11/2023 10:29 AM FINE ARTS MODEL COVID-19 Rule Out 03/18/2024 03/18/2024 03/18/2024 8:30 PM CDT COVID-19 Rule Out 05/27/2024 05/27/2024 05/27/2024 7:16 PM CDT Assessment Noted Time PHQ-9 Depression Total Score: 0 02/26/20 9:40 AM CDT documented as of this encounter Care Teams Project Assistant Relationship Specialty [place] [address] [place] [address] PCP - General FAMILY PRACTICE 05/15/20 documented as of this encounter
--- OUTSIDE RECORDS SUMMARY | 2025-04-23 11:16 | XMS_ITS | Encounter Summary ---
Author Organization [facility] Address [address] [place] [address] Care Team Providers Care Records And Information Manager Name Role Phone Nestor Fletcher MD Primary Care Provider [phone] Encounter Details Date Type Department Care Team (Late st Contact Info) Description 11/05/2020 [employer] Message [facility] [address] [place] [address] [place] [address] [place] [address] RE: Question Social History Tobacco [...] Sex Assigned at Female 10/30/2019 8:35 AM CADET DECK Legal Sex Female 10:55 PM CDT Gender Identity Female 10/30/2019 8:35 AM CADET DECK Sexual Orientation Straight 10/30/2019 8: 35 AM CADET DECK COVID-19 Exposure Response Date Recorded In the last month, have you been in contact with someone who was confirmed or suspected to have Coronavirus / COVID-19? No / Unsure 11/05/2020 8:17 AM CADET DECK documented as of this encounter Functional Status [...] st Contact Info) Description 08/26/2025 9:00 AM CADET DECK Office Visit [facility] Medical Group Multispecialty Care - [facility] [address] [place] [address] Francisco Levi DO [address] [facility] [address] [place] [address] documented as of this encounter Visit Diagnoses [...] Rule Out 09/11/2023 09/11/2023 09/11/2023 10:29 AM CADET DECK COVID-19 Rule Out 03/18/2024 03/18/2024 03/18/2024 8:30 PM CDT COVID-19 Rule Out 05/27/2024 05/27/2024 05/27/2024 7:16 PM CDT documented as of this encounter Care Teams Records And Information Manager Relationship Specialty [place] [address] [place] [address] PCP - General FAMILY PRACTICE 05/15/20 documented as of this encounter
--- OUTSIDE RECORDS SUMMARY | 2025-04-23 11:16 | XMS_ITS | Encounter Summary ---
Author Organization [facility] Address [address] [place] [address] Care Team Providers Care Physical Therapist Technician Name Role Phone Nestor Fletcher MD Primary Care Provider [phone] Encounter Details Date Type Department Care Team (Late st Contact Info) Description 06/17/2020 [employer] Message Enc [facility] Medical Group Family & Internal Medicine [address] [address] Nestor Fletcher MD [address] [place] [address] RE: Question Social History Tobacco Use [...] Assigned at Female 10/30/2019 8:35 AM CYLINDER DIE MACHINE OPERATOR Legal Sex Female 10:55 PM CDT Gender Identity Female 10/30/2019 8:35 AM CYLINDER DIE MACHINE OPERATOR Sexual Orientation Straight 10/30/2019 8: 35 AM CYLINDER DIE MACHINE OPERATOR COVID-19 Exposure Response Date Recorded [...] st Contact Info) Description 08/26/2025 9:00 AM CYLINDER DIE MACHINE OPERATOR Office Visit [facility] Medical Group Multispecialty Care - [facility] [address] [place] [address] Francisco Levi DO [address] [facility] [address] [place] [address] documented as of this encounter Visit Diagnoses Not on filedocumented in this encounter Additional Health Concerns Infection Onset Date Last Indicated Resolved Time COVID-19 Rule Out 06/26/2020 06/26/2020 06/27/2020 4:51 PM CDT COVID-19 Rule Out 07/06/2020 07/06/2020 07/08/2020 11:00 PM CYLINDER DIE MACHINE OPERATOR COVID-19 Rule Out 07/09/2020 07/09/2020 07/12/2020 10:16 AM CYLINDER DIE MACHINE OPERATOR COVID-19 Rule Out 11/14/2020 11/14/2020 11/15/2020 10:25 AM CDT COVID-19 Rule Out 01/05/2021 01/05/2021 01/05/2021 5:26 PM CDT COVID-19 Rule Out 12/02/2021 12/02/2021 12/02/2021 4:28 PM CDT COVID-19 Rule Out 05/20/2023 05/20/2023 05/20/2023 6:44 PM CDT COVID-19 Rule Out 09/11/2023 09/11/2023 09/11/2023 10:29 AM CYLINDER DIE MACHINE OPERATOR COVID-19 Rule Out 03/18/2024 03/18/2024 03/18/2024 8:30 PM CDT COVID-19 Rule Out 05/27/2024 05/27/2024 05/27/2024 7:16 PM CDT documented as of this encounter Care Teams Physical Therapist Technician Relationship Specialty [place] [address] [place] [address] PCP - General FAMILY PRACTICE 05/15/20 documented as of this encounter
--- OUTSIDE RECORDS SUMMARY | 2025-04-23 11:16 | XMS_ITS | Encounter Summary ---
Author Organization [facility] Address [address] [place] [address] Care Team Providers Care Timers Inspector Name Role Phone Nestor Fletcher MD Primary Care Provider [phone] Encounter Details Date Type Department Care Team (Late st Contact Info) Description 02/02/2023 [employer] Message Enc [facility] Medical Group [facility] [address] [place] [address] Carlos A Ocasio, DPBrinda [address] [place] [address] Foot Social History Tobacco Use Types [...] Assigned at Female 10/30/2019 8:35 AM WEB PRODUCTION ASSISTANT Legal Sex Female 10:55 PM CDT Gender Identity Female 10/30/2019 8:35 AM WEB PRODUCTION ASSISTANT Sexual Orientation Straight 10/30/2019 8: 35 AM WEB PRODUCTION ASSISTANT COVID-19 Exposure Response Date Recorded In [...] st Contact Info) Description 08/26/2025 9:00 AM WEB PRODUCTION ASSISTANT Office Visit [facility] Medical Group Multispecialty Care - [facility] [address] [place] [address] Francisco Levi DO [address] [facility] [address] [place] [address] documented as of this encounter Goals Goal [...] Out 09/11/2023 09/11/2023 09/11/2023 10:29 AM WEB PRODUCTION ASSISTANT COVID-19 Rule Out 03/18/2024 03/18/2024 03/18/2024 8:30 PM CDT COVID-19 Rule Out 05/27/2024 05/27/2024 05/27/2024 7:16 PM CDT Assessment Noted Time PHQ-9 Depression Total Score: 0 02/26/20 22 9:40 AM CDT documented as of this encounter Care Teams Timers Inspector Relationship Specialty [place] [address] [place] [address] PCP - General FAMILY PRACTICE 05/15/20 documented as of this encounter
--- OUTSIDE RECORDS SUMMARY | 2025-04-23 11:16 | XMS_ITS | Encounter Summary ---
Author Organization [facility] Address [address] [place] [address] Care Team Providers Care Buncher Operator Name Role Phone Nestor Fletcher MD Primary Care Provider [phone] Encounter Details Date Type Department Care Team (Late st Contact Info) Description 06/02/2020 [employer] Message Enc [facility] Medical Group Family & Internal Medicine [address] [address] Nestor Fletcher MD [address] [place] [address] RE: Question Social History Tobacco Use [...] Sex Assigned at Female 10/30/2019 8:35 AM MANDOLIN REPAIR PERSON Legal Sex Female 10:55 PM CDT Gender Identity Female 10/30/2019 8:35 AM MANDOLIN REPAIR PERSON Sexual Orientation Straight 10/30/2019 8: 35 AM MANDOLIN REPAIR PERSON COVID-19 Exposure Response Date Recorded In [...] st Contact Info) Description 08/26/2025 9:00 AM MANDOLIN REPAIR PERSON Office Visit [facility] Medical Group Multispecialty Care - [facility] [address] [place] [address] Francisco Levi DO [address] [facility] [address] [place] [address] documented as of this encounter Visit Diagnoses Not on filedocumented in this encounter Additional Health Concerns Infection Onset Date Last Indicated Resolved Time COVID-19 Rule Out 06/26/2020 06/26/2020 06/27/2020 4:51 PM CDT COVID-19 Rule Out 07/06/2020 07/06/2020 07/08/2020 11:00 PM MANDOLIN REPAIR PERSON COVID-19 Rule Out 07/09/2020 07/09/2020 07/12/2020 10:16 AM MANDOLIN REPAIR PERSON COVID-19 Rule Out 11/14/2020 11/14/2020 11/15/2020 10:25 AM CDT COVID-19 Rule Out 01/05/2021 01/05/2021 01/05/2021 5:26 PM CDT COVID-19 Rule Out 12/02/2021 12/02/2021 12/02/2021 4:28 PM CDT COVID-19 Rule Out 05/20/2023 05/20/2023 05/20/2023 6:44 PM CDT COVID-19 Rule Out 09/11/2023 09/11/2023 09/11/2023 10:29 AM MANDOLIN REPAIR PERSON COVID-19 Rule Out 03/18/2024 03/18/2024 03/18/2024 8:30 PM CDT COVID-19 Rule Out 05/27/2024 05/27/2024 05/27/2024 7:16 PM CDT documented as of this encounter Care Teams Buncher Operator Relationship Specialty [place] [address] [place] [address] PCP - General FAMILY PRACTICE 05/15/20 documented as of this encounter
--- OUTSIDE RECORDS SUMMARY | 2025-04-23 11:16 | XMS_ITS | Encounter Summary ---
Author Organization [facility] Address [address] [place] [address] Care Team Providers Care Instructional Coach Name Role Phone Nestor Fletcher MD Primary Care Provider [phone] Encounter Details Date Type Department Care Team (Latest Contact Info) Description 06/02/2020 [employer] Message Enc [facility] Medical Group Multispecialty Care - [facility] [address] [place] [address] Francisco Levi DO [address] [facility] [address] [place] [address] RE: Test Results Social History Tobacco Use [...] Assigned at Female 10/30/2019 8:35 AM COMPUTER CONSULTANT Legal Sex Female 10:55 PM CDT Gender Identity Female 10/30/2019 8:35 AM COMPUTER CONSULTANT Sexual Orientation Straight 10/30/2019 8: 35 AM COMPUTER CONSULTANT COVID-19 Exposure Response Date Recorded In [...] st Contact Info) Description 08/26/2025 9:00 AM COMPUTER CONSULTANT Office Visit [facility] Medical Group Multispecialty Care - [facility] [address] [place] [address] Francisco Levi, [address] [facility] [address] [place] [address] documented as of this encounter Visit Diagnoses Not on filedocumented in this encounter Additional Health Concerns Infection Onset Date Last Indicated Resolved Time COVID-19 Rule Out 06/26/2020 06/26/2020 06/27/2020 4:51 PM CDT COVID-19 Rule Out 07/06/2020 07/06/2020 07/08/2020 11:00 PM COMPUTER CONSULTANT COVID-19 Rule Out 07/09/2020 07/09/2020 07/12/2020 10:16 AM COMPUTER CONSULTANT COVID-19 Rule Out 11/14/2020 11/14/2020 11/15/2020 10:25 AM CDT COVID-19 Rule Out 01/05/2021 01/05/2021 01/05/2021 5:26 PM CDT COVID-19 Rule Out 12/02/2021 12/02/2021 12/02/2021 4:28 PM CDT COVID-19 Rule Out 05/20/2023 05/20/2023 05/20/2023 6:44 PM CDT COVID-19 Rule Out 09/11/2023 09/11/2023 09/11/2023 10:29 AM COMPUTER CONSULTANT COVID-19 Rule Out 03/18/2024 03/18/2024 03/18/2024 8:30 PM CDT COVID-19 Rule Out 05/27/2024 05/27/2024 05/27/2024 7:16 PM CDT documented as of this encounter Care Teams Instructional Coach Relationship Specialty [place] [address] [place] [address] PCP - General FAMILY PRACTICE 05/15/20 documented as of this encounter
--- OUTSIDE RECORDS SUMMARY | 2025-04-23 11:16 | XMS_ITS | Encounter Summary ---
Author Organization [facility] Address [address] [place] [address] Care Team Providers Care Manufacturer Agent Name Role Phone Nestor Fletcher MD Primary Care Provider [phone] Encounter Details Date Type Department Care Team (Late st Contact Info) Description 01/31/2023 [employer] Message Enc [facility] Medical Group Family & Internal Medicine [address] [address] Nestor Fletcher MD [address] [place] [address] Pain meds Social History Tobacco Use [...] Sex Assigned at Female 10/30/2019 8:35 AM WAD BLANKING PRESS ADJUSTER Legal Sex Female 10:55 PM CDT Gender Identity Female 10/30/2019 8:35 AM WAD BLANKING PRESS ADJUSTER Sexual Orientation Straight 10/30/2019 8: 35 AM WAD BLANKING PRESS ADJUSTER COVID-19 Exposure Response Date Recorded In the [...] AM CDT Ela Archer RN Active * [place] Suicide Severity Rating Scale (Screener/Recent Self-Report) Question [...] st Contact Info) Description 08/26/2025 9:00 AM WAD BLANKING PRESS ADJUSTER Office Visit [facility] Medical Group Multispecialty Care - [facility] [address] [place] [address] Francisco Levi DO [address] [place] [address] documented as of this encounter Goals Goal [...] Rule Out 09/11/2023 09/11/2023 09/11/2023 10:29 AM WAD BLANKING PRESS ADJUSTER COVID-19 Rule Out 03/18/2024 03/18/2024 03/18/2024 8:30 PM CDT COVID-19 Rule Out 05/27/2024 05/27/2024 05/27/2024 7:16 PM CDT Assessment Noted Time PHQ-9 Depression Total Score: 0 02/26/20 22 9:40 AM CDT documented as of this encounter Care Teams Manufacturer Agent Relationship Specialty [place] [address] [place] [address] PCP - General FAMILY PRACTICE 05/15/20 documented as of this encounter
--- OUTSIDE RECORDS SUMMARY | 2025-04-23 11:16 | XMS_ITS | Encounter Summary ---
Author Organization [facility] Address [address] [place] [address] Care Team Providers Care Balance Wheel Screw Hole Tapper Name Role Phone Nestor Fletcher MD Primary Care Provider [phone] Encounter Details Date Type Department Care Team (Late st Contact Info) Description 11/11/2020 Prep for Procedure [facility] [address] [place] [address] Carlos A Ocasio, DPBrinda [address] [place] [address] Social History Tobacco Use Types [...] Assigned at Female 10/30/2019 8:35 AM INSURANCE ADVISER Legal Sex Female 10:55 PM CDT Gender Identity Female 10/30/2019 8:35 AM INSURANCE ADVISER Sexual Orientation Straight 10/30/2019 8: 35 AM INSURANCE ADVISER COVID-19 Exposure Response Date Recorded In the last month, have you been in contact with someone who was confirmed or suspected to have Coronavirus / COVID-19? No / Unsure 11/14/2020 9:59 AM INSURANCE ADVISER documented as of this encounter Functional Status [...] Contact Info) Description 08/26/2025 9:00 AM INSURANCE ADVISER Office Visit [facility] Medical Group Multispecialty Care - [facility] [address] [place] [phone] Francisco Levi DO [address] [place] [address] documented as of this encounter Results * MRSA SCREENING (11/14/2020 9:59 AM INSURANCE ADVISER) SPEC DESCRIPTION NASAL 11/14/2020 9:59 AM INSURANCE ADVISER [facility] SPECIAL REQUESTS NO SPECIAL REQUEST 11/14/2020 9:59 AM INSURANCE ADVISER [facility] CULTURE RESULT NO METHICILLIN RESISTANT STAPHYLOCOCCUS AUREUS ISOLATED 11/15/2020 11:13 AM CDT [facility] SPECIMEN FROM INTERNAL NOSE / Unknown 11/14/2020 9:59 AM INSURANCE ADVISER 11/14/2020 10:17 AM INSURANCE ADVISER Carlos A Ocasio DPM MICROBIOLOGY - GENERAL ORDERABLE S Final Result [facility] [address] [place] [address], * PRE-SURGICAL/PRE-PROCEDURE CORONAVIRUS (COVID 19) (11/14/2020 9:59 AM INSURANCE ADVISER) CORONAVIRUS SARS COV 2 PCR (RESP) NOT DETECTED NOT DETECTED 11/15/2020 10:25 AM CDT [facility] Comment: A Not Detected (negative) test result [...] providers and patients using the following websites: https://www.[employer]/home/Covid-19/HCP/QuestIVD/fact- sheet.html https://www.[employer]/home/Covid-19/Patients/ QuestIVD/fact-sheet.html This test has been authorized by the FDA under an Emergency Use Authorization (EUA) for use by authorized laboratories. Due to the current public health emergency, [facility] is receiving a high volume of samples [...] about COVID-19 can be found at the [facility] website: www.[employer]/Covid19. Test performed at [facility] [address] [place] [address] Director: BURT GALLOWAY DO,MPH FIRST TEST NO 11/14/2020 9:59 AM [facility] EMPLOYED IN HEALTHCARE NO 11/14/2020 9:59 AM [facility] SYMPTOMATIC DEFINED BY CDC NO 11/14/2020 9:59 AM [facility] DATE OF SYMPTOM ONSET UNKNOWN 11/14/2020 10:20 AM [facility] HOSPITALIZATION STATUS NO 11/14/2020 9:59 AM [facility] PATIENT IN ICU NO 11/14/2020 9:59 AM [facility] RESIDENT OF [facility] NO 11/14/2020 9:59 AM [facility] NOT 11/14/2020 9:59 AM [facility] PATIENT'S RACE WHITE OR 11/14/2020 9:59 AM [facility] ETHNICITY NONHISPANIC 11/14/2020 9:59 AM [facility] SOURCE (QST) NASOPHARYNGEAL SWAB 11/14/2020 9:59 AM INSURANCE ADVISER [facility] NASOPHARYNGEAL SWAB / Unknown 11/14/2020 9:59 AM INSURANCE ADVISER Carlos A Ocasio DPM MICROBIOLOGY - GENERAL ORDERABLE S Final Result [facility] [address] [place] [address], [facility] [address] [place] [address], documented in this encounter Visit Diagnoses Diagnosis [...] Out 09/11/2023 09/11/2023 09/11/2023 10:29 AM INSURANCE ADVISER COVID-19 Rule Out 03/18/2024 03/18/2024 03/18/2024 8:30 PM CDT COVID-19 Rule Out 05/27/2024 05/27/2024 05/27/2024 7:16 PM CDT documented as of this encounter Care Teams Balance Wheel Screw Hole Tapper Relationship Specialty [place] [address] [place] [address] PCP - General FAMILY PRACTICE 05/15/20 documented as of this encounter
--- OUTSIDE RECORDS SUMMARY | 2025-04-23 11:16 | XMS_ITS | Encounter Summary ---
Author Organization [facility] Address [address] [place] [address] Care Team Providers Care Legal Recruiter Name Role Phone Nestor Fletcher MD Primary Care Provider [phone] Encounter Details Date Type Department Care Team (Late st Contact Info) Description 08/08/2022 [employer] Message Enc [facility] Medical Group Multispecialty Care - [facility] [address] [facility], [address] [place] [phone] Pura Velazquez APRN [address] [facility] [address] [place] [address] Appointment Social History Tobacco Use Types Packs/Day [...] Sex Assigned at Female 10/30/2019 8:35 AM VPK TEACHER Legal Sex Female 10:55 PM CDT Gender Identity Female 10/30/2019 8:35 AM VPK TEACHER Sexual Orientation Straight 10/30/2019 8: 35 AM VPK TEACHER COVID-19 Exposure Response Date Recorded In the last 10 days, have marielos u been in contact with someone who was confirmed or suspected to have Coronavirus/COVID-19? No / Unsure 08/08/2022 8:25 AM VPK TEACHER documented as of this encounter Functional [...] st Contact Info) Description 08/26/2025 9:00 AM VPK TEACHER Office Visit [facility] Medical Group Multispecialty Care - [facility] [address] [place] [address] Francisco Levi, [address] [place] [address] documented as of this encounter Goals Goal [...] Rule Out 09/11/2023 09/11/2023 09/11/2023 10:29 AM VPK TEACHER COVID-19 Rule Out 03/18/2024 03/18/2024 03/18/2024 8:30 PM CDT COVID-19 Rule Out 05/27/2024 05/27/2024 05/27/2024 7:16 PM CDT Assessment Noted Time PHQ-9 Depression Total Score: 0 02/26/20 22 9:40 AM CDT documented as of this encounter Care Teams Legal Recruiter Relationship Specialty [place] [address] [place] [address] PCP - General FAMILY PRACTICE 05/15/20 documented as of this encounter
--- OUTSIDE RECORDS SUMMARY | 2025-04-23 11:16 | XMS_ITS | Encounter Summary ---
Author Organization [facility] Address [address] [place] [address] Care Team Providers Care Conduit Cleaner Name Role Phone Nestor Fletcher MD Primary Care Provider [phone] Encounter Details Date Type Department Care Team (Late st Contact Info) Description 11/23/2022 Hospital Orders Only [facility] [address] [place] [address] Shyann Doss, PT [address] [place] [address] Social History Tobacco Use Types [...] Sex Assigned at Female 10/30/2019 8:[address] Legal Sex Female 10:55 PM CDT Gender Identity Female 10/30/2019 8:[address]DU[address] Sexual Orientation Straight 10/30/2019 8: [address]DUCTOR COVID-19 Exposure Response Date Recorded In the [...] st Contact Info) Description 08/26/2025 9:[address]DU[address] Office Visit [facility] Medical Group Multispecialty Care - [facility] [address] [place] [phone] Francisco Levi DO [address] [facility] [address] [place] [address] documented as of this encounter Goals Goal [...] Rule Out 09/11/2023 09/11/2023 09/11/2023 10:[address]DU[address] COVID-19 Rule Out 03/18/2024 03/18/2024 03/18/2024 8:30 PM CDT COVID-19 Rule Out 05/27/2024 05/27/2024 05/27/2024 7:16 PM CDT Assessment Noted Time PHQ-9 Depression Total Score: 0 02/26/20 22 9:40 AM CDT documented as of this encounter Care Teams Conduit Cleaner Relationship Specialty [place] [address] [place] [address] PCP - General FAMILY PRACTICE 05/15/20 documented as of this encounter
--- OUTSIDE RECORDS SUMMARY | 2025-04-23 11:16 | XMS_ITS | Encounter Summary ---
Author Organization [facility] [place] [facility] Address [address] [place] [address] Care Team Providers Care Salesperson Floor Coverings Name Role Phone Nestor Fletcher MD Primary Care Provider [phone] Encounter Details Date Type Department Care Team (Late st Contact Info) Description 08/17/2022 [employer] Message Enc [facility] Medical Group Foot & Ankle Specialists [facility] [id number] [place] [address] Carlos A Ocasio, DPBrinda [address] [place] [address] Foot pain Social History Tobacco Use [...] Sex Assigned at Female 10/30/2019 8:35 AM STAINED GLASS WINDOW DESIGNER Legal Sex Female 10:55 PM CDT Gender Identity Female 10/30/2019 8:35 AM STAINED GLASS WINDOW DESIGNER Sexual Orientation Straight 10/30/2019 8: 35 AM STAINED GLASS WINDOW DESIGNER COVID-19 Exposure Response Date Recorded In the last 10 days, have yo u been in contact with someone who was confirmed or suspected to have Coronavirus/COVID-19? No / Unsure 08/08/2022 8:25 AM STAINED GLASS WINDOW DESIGNER documented as of this encounter Functional [...] st Contact Info) Description 08/26/2025 9:00 AM STAINED GLASS WINDOW DESIGNER Office Visit [facility] Medical Group Multispecialty Care - [facility] [address] [place] [address] Francisco Levi, [address] [facility] [address] [place] [address] documented as of this encounter Goals Goal [...] Rule Out 09/11/2023 09/11/2023 09/11/2023 10:29 AM STAINED GLASS WINDOW DESIGNER COVID-19 Rule Out 03/18/2024 03/18/2024 03/18/2024 8:30 PM CDT COVID-19 Rule Out 05/27/2024 05/27/2024 05/27/2024 7:16 PM CDT Assessment Noted Time PHQ-9 Depression Total Score: 0 02/26/20 22 9:40 AM CDT documented as of this encounter Care Teams Salesperson Floor Coverings Relationship Specialty [place] [address] [place] [address] PCP - General FAMILY PRACTICE 05/15/20 documented as of this encounter
--- OUTSIDE RECORDS SUMMARY | 2025-04-23 11:16 | XMS_ITS | Encounter Summary ---
Author Organization [facility] Address [address] [place] [address] Care Team Providers Care Problem Manager Name Role Phone Nestor Fletcher MD Primary Care Provider [phone] Encounter Details Date Type Department Care Team (Late st Contact Info) Description 05/26/2020 [email or web address] Message Enc [facility] Medical Group General Surgery - [place] [address] [facility], [address] [place] [address] [place] [address] [place] [address] Question Social History Tobacco Use Types Packs/Day [...] Sex Assigned at Female 10/30/2019 8:35 AM LAW OFFICE MANAGER Legal Sex Female 10:55 PM CDT Gender Identity Female 10/30/2019 8:35 AM LAW OFFICE MANAGER Sexual Orientation Straight 10/30/2019 8: 35 AM LAW OFFICE MANAGER COVID-19 Exposure Response Date Recorded In [...] st Contact Info) Description 08/26/2025 9:00 AM LAW OFFICE MANAGER Office Visit [facility] Medical Group Multispecialty Care - [facility] [address] [facility] [place] [phone] Francisco Levi DO [address] [facility] [facility] [address] [place] [address] documented as of this encounter Visit Diagnoses Not on filedocumented in this encounter Additional Health Concerns Infection Onset Date Last Indicated Resolved Time COVID-19 Rule Out 05/25/2020 05/25/2020 05/27/2020 12:21 AM CDT COVID-19 Rule Out 06/26/2020 06/26/2020 06/27/2020 4:51 PM CDT COVID-19 Rule Out 07/06/2020 07/06/2020 07/08/2020 11:00 PM LAW OFFICE MANAGER COVID-19 Rule Out 07/09/2020 07/09/2020 07/12/2020 10:16 AM LAW OFFICE MANAGER COVID-19 Rule Out 11/14/2020 11/14/2020 11/15/2020 10:25 AM CDT COVID-19 Rule Out 01/05/2021 01/05/2021 01/05/2021 5:26 PM CDT COVID-19 Rule Out 12/02/2021 12/02/2021 12/02/2021 4:28 PM CDT COVID-19 Rule Out 05/20/2023 05/20/2023 05/20/2023 6:44 PM CDT COVID-19 Rule Out 09/11/2023 09/11/2023 09/11/2023 10:29 AM LAW OFFICE MANAGER COVID-19 Rule Out 03/18/2024 03/18/2024 03/18/2024 8:30 PM CDT COVID-19 Rule Out 05/27/2024 05/27/2024 05/27/2024 7:16 PM CDT documented as of this encounter Care Teams Problem Manager Relationship Specialty [place] [address] [place] [address] PCP - General FAMILY PRACTICE 05/15/20 documented as of this encounter
--- OUTSIDE RECORDS SUMMARY | 2025-04-23 11:16 | XMS_ITS | Encounter Summary ---
Author Organization [facility] Address [address] [place] [address] Care Team Providers Care Electric Detector Operator Name Role Phone Nestor Fletcher MD Primary Care Provider [phone] Encounter Details Date Type Department Care Team (Late st Contact Info) Description 08/03/2022 [employer] Message Enc [facility] Medical Group Family & Internal Medicine [address] [address] Nestor Fletcher MD [address] [place] [address] Joaquina Social History Tobacco Use Types [...] Assigned at Female 10/30/2019 8:35 AM MANAGER OF FINANCIAL Legal Sex Female 10:55 PM CDT Gender Identity Female 10/30/2019 8:35 AM MANAGER OF FINANCIAL Sexual Orientation Straight 10/30/2019 8: 35 AM MANAGER OF FINANCIAL COVID-19 Exposure Response Date Recorded In the last 10 days, have yo u been in contact with someone who was confirmed or suspected to have Coronavirus/COVID-19? No / Unsure 08/01/2022 2:43 PM MANAGER OF FINANCIAL documented as of this encounter Functional Status [...] PM CINTHYAT Georgia Lovell RN Active documented as of [...] st Contact Info) Description 08/26/2025 9:00 AM MANAGER OF FINANCIAL Office Visit [facility] Medical Group Multispecialty Care - [facility] [address] [place] [address] Francisco Levi, [address] [facility] [address] [place] [address] documented as of this encounter Goals Goal [...] Out 09/11/2023 09/11/2023 09/11/2023 10:29 AM MANAGER OF FINANCIAL COVID-19 Rule Out 03/18/2024 03/18/2024 03/18/2024 8:30 PM CDT COVID-19 Rule Out 05/27/2024 05/27/2024 05/27/2024 7:16 PM CDT Assessment Noted Time PHQ-9 Depression Total Score: 0 02/26/20 22 9:40 AM CDT documented as of this encounter Care Teams Electric Detector Operator Relationship Specialty [place] [address] [place] [address] PCP - General FAMILY PRACTICE 05/15/20 documented as of this encounter
--- OUTSIDE RECORDS SUMMARY | 2025-04-23 11:16 | XMS_ITS | Encounter Summary ---
Author Organization [facility] Address [address] [place] [address] Care Team Providers Care Whittling Room Operator Name Role Phone Nestor Fletcher MD Primary Care Provider [phone] Encounter Details Date Type Department Care Team (Late st Contact Info) Description 05/25/2020 [employer] Message Enc [facility] Medical Group Family & Internal Medicine [address] [address] [place] [id number] [place] [address] RE: Follow Up/Update Social History Tobacco [...] Sex Assigned at Female 10/30/2019 8:35 AM TIE LAYER Legal Sex Female 10:55 PM CDT Gender Identity Female 10/30/2019 8:35 AM TIE LAYER Sexual Orientation Straight 10/30/2019 8: 35 AM TIE LAYER COVID-19 Exposure Response Date Recorded In the [...] st Contact Info) Description 08/26/2025 9:00 AM TIE LAYER Office Visit [facility] Medical Group Multispecialty Care - [facility] [address] [place] [address] Francisco Levi DO [address] [facility] [address] [place] [address] documented as of this encounter Visit Diagnoses Not on filedocumented in this encounter Additional Health Concerns Infection Onset Date Last Indicated Resolved Time COVID-19 Rule Out 05/25/2020 05/25/2020 05/27/2020 12:21 AM CDT COVID-19 Rule Out 06/26/2020 06/26/2020 06/27/2020 4:51 PM CDT COVID-19 Rule Out 07/06/2020 07/06/2020 07/08/2020 11:00 PM TIE LAYER COVID-19 Rule Out 07/09/2020 07/09/2020 07/12/2020 10:16 AM TIE LAYER COVID-19 Rule Out 11/14/2020 11/14/2020 11/15/2020 10:25 AM CDT COVID-19 Rule Out 01/05/2021 01/05/2021 01/05/2021 5:26 PM CDT COVID-19 Rule Out 12/02/2021 12/02/2021 12/02/2021 4:28 PM CDT COVID-19 Rule Out 05/20/2023 05/20/2023 05/20/2023 6:44 PM CDT COVID-19 Rule Out 09/11/2023 09/11/2023 09/11/2023 10:29 AM TIE LAYER COVID-19 Rule Out 03/18/2024 03/18/2024 03/18/2024 8:30 PM CDT COVID-19 Rule Out 05/27/2024 05/27/2024 05/27/2024 7:16 PM CDT documented as of this encounter Care Teams Whittling Room Operator Relationship Specialty [place] [address] [place] [address] PCP - General FAMILY PRACTICE 05/15/20 documented as of this encounter
--- OUTSIDE RECORDS SUMMARY | 2025-04-23 11:16 | XMS_ITS | Encounter Summary ---
Author Organization [facility] Address [address] [place] [address] Care Team Providers Care Music Manager Name Role Phone Nestor Fletcher MD Primary Care Provider [phone] Encounter Details Date Type Department Care Team (Late st Contact Info) Description 10/24/2022 [employer] Message Enc [facility] Medical Group Family & Internal Medicine [address] [address] Nestor Fletcher MD [address] [place] [address] Right hip injection Social History Tobacco [...] Assigned at Female 10/30/2019 8:35 AM FAMILY PRACTICE DOCTOR Legal Sex Female 10:55 PM CDT Gender Identity Female 10/30/2019 8:35 AM FAMILY PRACTICE DOCTOR Sexual Orientation Straight 10/30/2019 8: 35 AM FAMILY PRACTICE DOCTOR COVID-19 Exposure Response Date Recorded In the last 10 days, have yo u been in contact with someone who was confirmed or suspected to have Coronavirus/COVID-19? No / Unsure 10/20/2022 1:50 PM FAMILY PRACTICE DOCTOR documented as of this encounter Functional Status [...] Contact Info) Description 08/26/2025 9:00 AM FAMILY PRACTICE DOCTOR Office Visit [facility] Medical Group Multispecialty Care - [facility] [address] [place] [address] Francisco Levi, [address] [facility] [address] [place] [address] documented as of this encounter Goals Goal [...] Out 09/11/2023 09/11/2023 09/11/2023 10:29 AM FAMILY PRACTICE DOCTOR COVID-19 Rule Out 03/18/2024 03/18/2024 03/18/2024 8:30 PM CDT COVID-19 Rule Out 05/27/2024 05/27/2024 05/27/2024 7:16 PM CDT Assessment Noted Time PHQ-9 Depression Total Score: 0 02/26/20 22 9:40 AM CDT documented as of this encounter Care Teams Music Manager Relationship Specialty [place] [address] [place] [address] PCP - General FAMILY PRACTICE 05/15/20 documented as of this encounter
--- OUTSIDE RECORDS SUMMARY | 2025-04-23 11:16 | XMS_ITS | Encounter Summary ---
Author Organization [facility] Address [address] [place] [address] Care Team Providers Care Stretcher Leveler Operator Helper Name Role Phone Nestor Fletcher MD Primary Care Provider [phone] Encounter Details Date Type Department Care Team (Late st Contact Info) Description 10/27/2020 [employer] Message Enc [facility] Medical Group Multispecialty Care - [facility] [address] [place] [address] Francisco Levi DO [address] [facility] [address] [place] [address] RE: Other Social History Tobacco Use Types [...] Sex Assigned at Female 10/30/2019 8:35 AM DUPLICATOR PUNCH SET UP OPERATOR Legal Sex Female 10:55 PM CDT Gender Identity Female 10/30/2019 8:35 AM DUPLICATOR PUNCH SET UP OPERATOR Sexual Orientation Straight 10/30/2019 8: 35 AM DUPLICATOR PUNCH SET UP OPERATOR COVID-19 Exposure Response Date Recorded In the last month, have you been in contact with someone who was confirmed or suspected to have Coronavirus / COVID-19? No / Unsure 10/30/2020 3:47 PM DUPLICATOR PUNCH SET UP OPERATOR documented as of this [...] st Contact Info) Description 08/26/2025 9:00 AM DUPLICATOR PUNCH SET UP OPERATOR Office Visit [facility] Medical Group Multispecialty Care - [facility] [address] [facility] [address] [place] [address] Francisco Levi, [address] [facility] [address] [place] [address] documented as of this encounter Visit Diagnoses [...] Rule Out 09/11/2023 09/11/2023 09/11/2023 10:29 AM DUPLICATOR PUNCH SET UP OPERATOR COVID-19 Rule Out 03/18/2024 03/18/2024 03/18/2024 8:30 PM CDT COVID-19 Rule Out 05/27/2024 05/27/2024 05/27/2024 7:16 PM CDT documented as of this encounter Care Teams Stretcher Leveler Operator Helper Relationship Specialty [place] [address] [place] [address] PCP - General FAMILY PRACTICE 05/15/20 documented as of this encounter
--- OUTSIDE RECORDS SUMMARY | 2025-04-23 11:16 | XMS_ITS | Encounter Summary ---
Author Organization [facility] Address [address] [place] [address] Care Team Providers Care Corporate Logistics Manager Name Role Phone Nestor Fletcher MD Primary Care Provider [phone] Encounter Details Date Type Department Care Team (Late st Contact Info) Description 11/01/2020 [employer] Message Enc [facility] Medical Group Family & Internal Medicine [facility] [address] [place] [address] Natali Polo APNP [address] [address] RE: RE: Question Social History [...] Sex Assigned at Female 10/30/2019 8:35 AM EARLY MORNING Legal Sex Female 10:55 PM CDT Gender Identity Female 10/30/2019 8:35 AM EARLY MORNING Sexual Orientation Straight 10/30/2019 8: 35 AM EARLY MORNING COVID-19 Exposure Response Date Recorded In the last month, have you been in contact with someone who was confirmed or suspected to have Coronavirus / COVID-19? No / Unsure 11/02/2020 9:16 AM EARLY MORNING documented as of this encounter Functional Status [...] rather go that route as well. Thanks Y MORNING * Monique Vasquez MA - 11/02/2020 9:17 AM CST Please advise- these symptoms seem to be an ongoing issue for this patient. Please speak to me regarding this when you have time Y MORNING * Barbara England NP - 11/02/2020 7:25 AM CST Re routing. Y MORNING * Barbara England NP - 11/02/2020 7:21 [...] for appt to be re evaluated. Thanks Y MORNING * Monique Vasquez MA - 11/02/2020 6:51 AM CST Please address- patient has been seen numerous times for this Y MORNING documented in this encounter Plan of Treatment Upcoming Encounters Date Type Department Care Team (Late st Contact Info) Description 08/26/2025 9:00 AM EARLY MORNING Office Visit [facility] Medical Group Multispecialty Care - [facility] [address] [place] [phone] Francisco Levi DO [address] [facility] [address] [place], [place] [id number] documented as of this encounter Visit Diagnoses [...] Rule Out 09/11/2023 09/11/2023 09/11/2023 10:29 AM EARLY MORNING COVID-19 Rule Out 03/18/2024 03/18/2024 03/18/2024 8:30 PM CDT COVID-19 Rule Out 05/27/2024 05/27/2024 05/27/2024 7:16 PM CDT documented as of this encounter Care Teams Corporate Logistics Manager Relationship Specialty [place] [address] [place] [address] PCP - General FAMILY PRACTICE 05/15/20 documented as of this encounter
--- OUTSIDE RECORDS SUMMARY | 2025-04-23 11:16 | XMS_ITS | Encounter Summary ---
Author Organization [facility] Address [address] [place] [address] Care Team Providers Care Factory Superintendent Name Role Phone Nestor Fletcher MD Primary Care Provider [phone] Encounter Details Date Type Department Care Team (Late st Contact Info) Description 01/24/2023 [email or web address] Message Enc [facility] Medical Group Multispecialty Care - [facility] [address] [facility], [address] [place] [phone] Eusebio Ron MD 3 [place] [address] Xray Social History Tobacco Use Types Packs/Day [...] Assigned at Female 10/30/2019 8:35 AM KNIFE BLADE POLISHER Legal Sex Female 10:55 PM CDT Gender Identity Female 10/30/2019 8:35 AM KNIFE BLADE POLISHER Sexual Orientation Straight 10/30/2019 8: 35 AM KNIFE BLADE POLISHER COVID-19 Exposure Response Date Recorded In [...] st Contact Info) Description 08/26/2025 9:00 AM KNIFE BLADE POLISHER Office Visit [facility] Medical Group Multispecialty Care - [facility] [address] [facility] [address] [place] [address] Francisco Levi, [address] [facility] [address] [place] [address] documented as of this encounter Goals Goal [...] Rule Out 09/11/2023 09/11/2023 09/11/2023 10:29 AM KNIFE BLADE POLISHER COVID-19 Rule Out 03/18/2024 03/18/2024 03/18/2024 8:30 PM CDT COVID-19 Rule Out 05/27/2024 05/27/2024 05/27/2024 7:16 PM CDT Assessment Noted Time PHQ-9 Depression Total Score: 0 02/26/20 22 9:40 AM CDT documented as of this encounter Care Teams Factory Superintendent Relationship Specialty [place] [address] [place] [address] PCP - General FAMILY PRACTICE 05/15/20 documented as of this encounter
--- OUTSIDE RECORDS SUMMARY | 2025-04-23 11:16 | XMS_ITS | Encounter Summary ---
Author Organization [facility] Address [address] [place] [address] Care Team Providers Care Industrial Hygiene Technician Name Role Phone Nestor Fletcher MD Primary Care Provider [phone] Encounter Details Date Type Department Care Team (Late st Contact Info) Description 01/05/2023 FAD ? IO Message Enc [facility] Medical Group Family & Internal Medicine [address] [address] Nestor Fletcher MD [address] [place] [address] Pain med appt Social History Tobacco [...] Sex Assigned at Female 10/30/2019 8:35 AM ORNAMENTAL METAL WORKER Legal Sex Female 10:55 PM CDT Gender Identity Female 10/30/2019 8:35 AM ORNAMENTAL METAL WORKER Sexual Orientation Straight 10/30/2019 8: 35 AM ORNAMENTAL METAL WORKER COVID-19 Exposure Response Date Recorded In [...] st Contact Info) Description 08/26/2025 9:00 AM ORNAMENTAL METAL WORKER Office Visit [facility] Medical Group Multispecialty Care - [facility] [address] [facility] [address] [place] [address] Francisco Levi, [address] [facility] [address] [place] [address] documented as of this encounter Goals Goal [...] Rule Out 09/11/2023 09/11/2023 09/11/2023 10:29 AM ORNAMENTAL METAL WORKER COVID-19 Rule Out 03/18/2024 03/18/2024 03/18/2024 8:30 PM CDT COVID-19 Rule Out 05/27/2024 05/27/2024 05/27/2024 7:16 PM CDT Assessment Noted Time PHQ-9 Depression Total Score: 0 02/26/20 22 9:40 AM CDT documented as of this encounter Care Teams Industrial Hygiene Technician Relationship Specialty [place] [address] [place] [address] PCP - General FAMILY PRACTICE 05/15/20 documented as of this encounter
--- OUTSIDE RECORDS SUMMARY | 2025-04-23 11:16 | XMS_ITS | Encounter Summary ---
Author Organization [facility] Address [address] [place] [address] Care Team Providers Care Assistant Pressman Name Role Phone Nestor Fletcher MD Primary Care Provider [phone] Encounter Details Date Type Department Care Team (Late st Contact Info) Description 09/28/2022 [employer] Message Enc [facility] Medical Group Family & Internal Medicine [address] [address] Nestor Fletcher MD [address] [place] [address] Levothyroxine Social History Tobacco Use Types [...] Assigned at Female 10/30/2019 8:35 AM CLINICAL DOCUMENTATION CLERK Legal Sex Female 10:55 PM CDT Gender Identity Female 10/30/2019 8:35 AM CLINICAL DOCUMENTATION CLERK Sexual Orientation Straight 10/30/2019 8: 35 AM CLINICAL DOCUMENTATION CLERK COVID-19 Exposure Response Date Recorded In the last 10 days, have yo u been in contact with someone who was confirmed or suspected to have Coronavirus/COVID-19? No / Unsure 10/01/2022 3:37 PM CLINICAL DOCUMENTATION CLERK documented as of this encounter Functional [...] Assessment Author Status No 06/06/2022 12:00 PM CINTYHAT Georgia Lovell RN Active * Because of a physical, mental, or emotional condition, do you have difficulty doing errands alone such as visiting a doctor's office or shopping? Answer Date of Assessment Author Status No 06/06/2022 12:00 PM CDT Georgia Lovell RN Active * Calculated C-SSRS Risk Score (Lifetime/Recent) Answer Date of Assessment Author Status No Risk Indicated 10/01/2022 3:38 PM CLINICAL DOCUMENTATION CLERK Harpreet Lane RN Active * Myton Suicide Severity Rating Scale (Screener/Recent Self-Report) Question [...] st Contact Info) Description 08/26/2025 9:00 AM CLINICAL DOCUMENTATION CLERK Office Visit [facility] Medical Group Multispecialty Care - [facility] [address] [facility] [address] [place] [address] Francisco Levi DO [address] [facility] [address] [place] [address] documented as of this encounter Goals Goal [...] Out 09/11/2023 09/11/2023 09/11/2023 10:29 AM CLINICAL DOCUMENTATION CLERK COVID-19 Rule Out 03/18/2024 03/18/2024 03/18/2024 8:30 PM CDT COVID-19 Rule Out 05/27/2024 05/27/2024 05/27/2024 7:16 PM CDT Assessment Noted Time PHQ-9 Depression Total Score: 0 02/26/20 9:40 AM CDT documented as of this encounter Care Teams Assistant Pressman Relationship Specialty [place] [address] [place] [address] PCP - General FAMILY PRACTICE 05/15/20 documented as of this encounter
--- OUTSIDE RECORDS SUMMARY | 2025-04-23 11:16 | XMS_ITS | Encounter Summary ---
Author Organization [facility] Address [address] [place] [address] Care Team Providers Care Derrick Operator Name Role Phone Nestor Fletcher MD Primary Care Provider [phone] Encounter Details Date Type Department Care Team (Late st Contact Info) Description 08/31/2022 Bujbu Message Enc [facility] Medical Group Family & Internal Medicine [address] [address] Nestor Fletcher MD [address] [place] [address] Plasma donation Social History Tobacco Use [...] Sex Assigned at Female 10/30/2019 8:35 AM CELLULAR PHONE REPAIRER Legal Sex Female 10:55 PM CDT Gender Identity Female 10/30/2019 8:35 AM CELLULAR PHONE REPAIRER Sexual Orientation Straight 10/30/2019 8: 35 AM CELLULAR PHONE REPAIRER COVID-19 Exposure Response Date Recorded In the last 10 days, have yo u been in contact with someone who was confirmed or suspected to have Coronavirus/COVID-19? No / Unsure 08/28/2022 5:46 PM CELLULAR PHONE REPAIRER documented as of this encounter Functional Status [...] Author Status No 06/06/2022 12:00 PM CDT Geogria Lovlel RN Active * Do you have difficulty [...] st Contact Info) Description 08/26/2025 9:00 AM CELLULAR PHONE REPAIRER Office Visit [facility] Medical Group Multispecialty Care - [facility] [address] [facility] [address] [place] [address] Francisco Levi DO [address] [facility] [address] [place] [address] documented as of this encounter Goals Goal [...] Rule Out 09/11/2023 09/11/2023 09/11/2023 10:29 AM CELLULAR PHONE REPAIRER COVID-19 Rule Out 03/18/2024 03/18/2024 03/18/2024 8:30 PM CDT COVID-19 Rule Out 05/27/2024 05/27/2024 05/27/2024 7:16 PM CDT Assessment Noted Time PHQ-9 Depression Total Score: 0 02/26/20 22 9:40 AM CDT documented as of this encounter Care Teams Derrick Operator Relationship Specialty [place] [address] [place] [address] PCP - General FAMILY PRACTICE 05/15/20 documented as of this encounter
--- OUTSIDE RECORDS SUMMARY | 2025-04-23 11:16 | XMS_ITS | Encounter Summary ---
Author Organization [facility] Address [address] [place] [address] Care Team Providers Care Jinrikisha Driver Name Role Phone Nestor Fletcher MD Primary Care Provider [phone] Encounter Details Date Type Department Care Team (Late st Contact Info) Description 11/05/2020 [employer] Message [facility] [address] Cullen Sprague MD [address] [address] RE: Question Social History Tobacco [...] Sex Assigned at Female 10/30/2019 8:35 AM UNDERWATER HUNTER Legal Sex Female 10:55 PM CDT Gender Identity Female 10/30/2019 8:35 AM UNDERWATER HUNTER Sexual Orientation Straight 10/30/2019 8: 35 AM UNDERWATER HUNTER COVID-19 Exposure Response Date Recorded In the last month, have you been in contact with someone who was confirmed or suspected to have Coronavirus / COVID-19? No / Unsure 11/05/2020 8:17 AM UNDERWATER HUNTER documented as of this encounter Functional Status [...] - 11/05/2020 11:34 AM CST See below RWATER HUNTER documented in this encounter Plan of Treatment Upcoming Encounters Date Type Department Care Team (Late st Contact Info) Description 08/26/2025 9:00 AM UNDERWATER HUNTER Office Visit [facility] Medical Group Multispecialty Care - [address], [address] [place] [address] Francisco Levi DO [address] [facility] [address] [place] [address] documented as of this encounter Visit Diagnoses [...] Rule Out 09/11/2023 09/11/2023 09/11/2023 10:29 AM UNDERWATER HUNTER COVID-19 Rule Out 03/18/2024 03/18/2024 03/18/2024 8:30 PM CDT COVID-19 Rule Out 05/27/2024 05/27/2024 05/27/2024 7:16 PM CDT documented as of this encounter Care Teams Jinrikisha Driver Relationship Specialty [place] [address] [place] [address] PCP - General FAMILY PRACTICE 05/15/20 documented as of this encounter
--- OUTSIDE RECORDS SUMMARY | 2025-04-23 11:16 | XMS_ITS | Encounter Summary ---
Author Organization [facility] Address [address] [place] [address] Care Team Providers Care Grades 7 And 8 Visiting Teacher Name Role Phone Nestor Fletcher MD Primary Care Provider [phone] Encounter Details Date Type Department Care Team (Late st Contact Info) Description 08/05/2022 Surgical Care Affiliatest Message Enc [facility] Medical Group Multispecialty Care - [facility] [address] [facility], [address] [place] [address] Pura Velazquez APRN [address] [facility] [address] [place] [address] Forgot Social History Tobacco Use Types Packs/Day [...] Sex Assigned at Female 10/30/2019 8:35 AM PASTING MACHINE OPERATOR Legal Sex Female 10:55 PM CDT Gender Identity Female 10/30/2019 8:35 AM PASTING MACHINE OPERATOR Sexual Orientation Straight 10/30/2019 8: 35 AM PASTING MACHINE OPERATOR COVID-19 Exposure Response Date Recorded In the last 10 days, have yo u been in contact with someone who was confirmed or suspected to have Coronavirus/COVID-19? No / Unsure 08/08/2022 8:25 AM PASTING MACHINE OPERATOR documented as of this encounter [...] 12:00 PM CDT eGorgia Lovell RN Active * Do you have [...] this encounter Progress Notes * Pura Velazquez, AUTOMOTIVE BRAKE TECHNICIAN - 08/08/2022 9:[address] [...] reported arm weakness that she sent through [employer]ifest message last Monday. This was not discussed [...] F/u in 6 weeks with cervical x-ray. ING MACHINE OPERATOR * Varsha Almonte MA - 08/05/2022 1:57 PM CST Sending to Pura ING MACHINE OPERATOR documented in this encounter Plan of Treatment Upcoming Encounters Date Type Department Care Team (Late st Contact Info) Description 08/26/2025 9:00 AM PASTING MACHINE OPERATOR Office Visit [facility] Medical Group Multispecialty Care - [facility] [address] [facility] [address] [place] [address] Francisco Levi DO [address] [facility] [address] [place] [address] documented as of this encounter Goals Goal Patient Goal Type Associated Problems Recent Progress Patient-Stated? Author Health - patient able to perform ADLs independently Lifestyle No Koerkenme i madhavi, Kareem Camacho, RN documented as of this encounter Visit Diagnoses Not on filedocumented in this encounter Additional Health Concerns Infection Onset Date Last Indicated Resolved Time COVID-19 Rule Out 05/20/2023 05/20/2023 05/20/2023 6:44 PM CDT COVID-19 Rule Out 09/11/2023 09/11/2023 09/11/2023 10:29 AM PASTING MACHINE OPERATOR COVID-19 Rule Out 03/18/2024 03/18/202403/18/2024 8:30 PM CDT COVID-19 Rule Out 05/27/2024 05/27/2024 05/27/2024 7:16 PM CDT Assessment Noted Time PHQ-9 Depression Total Score: 0 02/26/20 9:40 AM CDT documented as of this encounter Care Teams Grades 7 And 8 Visiting Teacher Relationship Specialty [place] [address] [place] [address] PCP - General FAMILY PRACTICE 05/15/20 documented as of this encounter
--- OUTSIDE RECORDS SUMMARY | 2025-04-23 11:16 | XMS_ITS | Encounter Summary ---
Author Organization [facility] Address [address] [place] [address] Care Team Providers Care Legal Internship Name Role Phone Nestor Fletcher MD Primary Care Provider [phone] Encounter Details Date Type Department Care Team (Late st Contact Info) Description 09/25/2022 BO.LT Message Enc [facility] Medical Group Family & Internal Medicine [address] [address] Nestor Fletcher MD [address] [place] [address] Cough Social History Tobacco Use Types [...] Sex Assigned at Female 10/30/2019 8:35 AM DUCK BILL OPERATOR Legal Sex Female 10:55 PM CDT Gender Identity Female 10/30/2019 8:35 AM DUCK BILL OPERATOR Sexual Orientation Straight 10/30/2019 8: 35 AM DUCK BILL OPERATOR COVID-19 Exposure Response Date Recorded In the last 10 days, have yo u been in contact with someone who was confirmed or suspected to have Coronavirus/COVID-19? No / Unsure 08/28/2022 5:46 PM DUCK BILL OPERATOR documented as of this encounter Functional [...] st Contact Info) Description 08/26/2025 9:00 AM DUCK BILL OPERATOR Office Visit [facility] Medical Group Multispecialty Care - [facility] [address] [place] [address] Francisco Levi DO [address] [facility] [address] [place] [address] documented as of this encounter Goals Goal [...] Rule Out 09/11/2023 09/11/2023 09/11/2023 10:29 AM DUCK BILL OPERATOR COVID-19 Rule Out 03/18/2024 03/18/2024 03/18/2024 8:30 PM CDT COVID-19 Rule Out 05/27/2024 05/27/2024 05/27/2024 7:16 PM CDT Assessment Noted Time PHQ-9 Depression Total Score: 0 02/26/20 22 9:40 AM CDT documented as of this encounter Care Teams Legal Internship Relationship Specialty [place] [address] [place] [address] PCP - General FAMILY PRACTICE 05/15/20 documented as of this encounter
--- OUTSIDE RECORDS SUMMARY | 2025-04-23 11:16 | XMS_ITS | Clinical Summary ---
Author Organization [facility] [address] [facility] Address [address] [place] [address] Care Team Providers Care Leaf Tier Name Role Phone Nestor Fletcher MD Primary Care Provider [phone] Moshe Hess MD Unavailable [phone] Allergies Active Allergy Reactions Criticality Noted [...] on file Legal Sex Female 2:16 AM CANDLE MOLDER Gender Identity Not on file Sexual Orientation Not on file Obstetrics History Last Filed Vital Signs Vital Sign Reading Time Taken Comments Blood Pressure 161/77 09/30/2024 1:43 PM CANDLE MOLDER Pulse 78 09/30/2024 1:43 PM CANDLE MOLDER Temperature 37.4 C (99.3 F) 09/30/2024 12:43 PM CANDLE MOLDER Respiratory Rate 11 09/30/2024 1:43 PM CANDLE MOLDER Oxygen Saturation 96% 09/30/2024 1:43 PM CANDLE MOLDER Inhaled Oxygen Concentration - - Weight 112 kg (247 lb) 09/30/2024 10:26 AM CANDLE MOLDER Height 165.1 cm (5' 5) 09/30/2024 10:26 AM CANDLE MOLDER Body Mass Index 41.1 09/30/2024 10:26 AM CANDLE MOLDER Plan of Treatment Health Maintenance Due Date [...] ID:Not on file Type:MEDICAID RISK OTHER Address: [address] [place] Member Subscriber Plan / Payer ( fective 2024-Present) Name:Renu Marquez Relation to Subscriber:Self Name:Renu Marquez Payer ID:[id number] (NAIC) Group ID:Not on file Type:MEDICAID RISK OTHER Address: [address] Advance Directives For more information, please contact: [phone] * Full Code (Latest Code Status on File) Date Activated Date Inactivated Comments 09/30/2024 10:26 AM 09/30/2024 5:58 PM Care Teams Leaf Tier Relationship Specialty Start Date End Date Nestor Fletcher MD PCP - General Family Practice 02/09/21 Moshe Hess MD [address] [place] [address] Consulting Physician Rheumatology 02/09/21
--- OUTSIDE RECORDS SUMMARY | 2025-04-23 11:16 | XMS_ITS | Encounter Summary ---
Author Organization [facility] Address [address] [place] [address] Care Team Providers Care Concrete Crusher Loader Operator Name Role Phone Nestor Fletcher MD Primary Care Provider [phone] Encounter Details Date Type Department Care Team (Late st Contact Info) Description 11/11/2020 [facility] Message Enc [facility] Medical Group Foot & Ankle Specialists [facility] [id number] [place] [address] Carlos A Ocasio, ROSY [address] [place] [address] RE: Question Social History Tobacco Use [...] Sex Assigned at Female 10/30/2019 8:35 AM ETYMOLOGY TEACHER Legal Sex Female 10:55 PM CDT Gender Identity Female 10/30/2019 8:35 AM ETYMOLOGY TEACHER Sexual Orientation Straight 10/30/2019 8: 35 AM ETYMOLOGY TEACHER COVID-19 Exposure Response Date Recorded In the last month, have you been in contact with someone who was confirmed or suspected to have Coronavirus / COVID-19? No / Unsure 11/14/2020 9:59 AM ETYMOLOGY TEACHER documented as of this encounter Functional [...] st Contact Info) Description 08/26/2025 9:00 AM ETYMOLOGY TEACHER Office Visit [facility] Medical Group Multispecialty Care - [facility] [address] [facility] [address] [place] [address] Francisco Levi, [address] [facility] [address] [place] [address] documented as of this encounter Visit Diagnoses [...] Rule Out 09/11/2023 09/11/2023 09/11/2023 10:29 AM ETYMOLOGY TEACHER COVID-19 Rule Out 03/18/2024 03/18/2024 03/18/2024 8:30 PM CDT COVID-19 Rule Out 05/27/2024 05/27/2024 05/27/2024 7:16 PM CDT documented as of this encounter Care Teams Concrete Crusher Loader Operator Relationship Specialty [place] [address] [place] [address] PCP - General FAMILY PRACTICE 05/15/20 documented as of this encounter
--- OUTSIDE RECORDS SUMMARY | 2025-04-23 11:16 | XMS_ITS | Encounter Summary ---
Author Organization [facility] Address [address] [place] [address] Care Team Providers Care Turbine Inspector Name Role Phone Nestor Fletcher MD Primary Care Provider [phone] Encounter Details Date Type Department Care Team (Latest Contact Info) Description 11/18/2020 [email or web address] Message Enc [facility] Medical Group Foot & Ankle Specialists [facility] [id number] [place] [address] Carlos A Ocasio, DPBrinda [address] [place] [address] RE: Follow Up/Update Social History Tobacco [...] Sex Assigned at Female 10/30/2019 8:35 AM LIDDING MACHINE OPERATOR Legal Sex Female 10:55 PM CDT Gender Identity Female 10/30/2019 8:35 AM LIDDING MACHINE OPERATOR Sexual Orientation Straight 10/30/2019 8: 35 AM LIDDING MACHINE OPERATOR COVID-19 Exposure Response Date Recorded [...] st Contact Info) Description 08/26/2025 9:00 AM LIDDING MACHINE OPERATOR Office Visit [facility] Medical Group Multispecialty Care - [facility] [address] [facility] [address] [place] [address] Francisco Levi, [address] [facility] [address] [place] [address] documented as of this encounter Visit Diagnoses Not on filedocumented in this encounter Additional Health Concerns Infection Onset Date Last Indicated Resolved Time COVID-19 Rule Out 01/05/2021 01/05/2021 01/05/2021 5:26 PM CDT COVID-19 Rule Out 12/02/2021 12/02/2021 12/02/2021 4:28 PM CDT COVID-19 Rule Out 05/20/2023 05/20/2023 05/20/2023 6:44 PM CDT COVID-19 Rule Out 09/11/2023 09/11/2023 09/11/2023 10:29 AM LIDDING MACHINE OPERATOR COVID-19 Rule Out 03/18/2024 03/18/2024 03/18/2024 8:30 PM CDT COVID-19 Rule Out 05/27/2024 05/27/2024 05/27/2024 7:16 PM CDT documented as of this encounter Care Teams Turbine Inspector Relationship Specialty [place] [address] [place] [address] PCP - General FAMILY PRACTICE 05/15/20 documented as of this encounter
--- OUTSIDE RECORDS SUMMARY | 2025-04-23 11:16 | XMS_ITS | Encounter Summary ---
Author Organization [facility] Address [address] [place] [address] Care Team Providers Care Stage Driver Name Role Phone Nestor Fletcher MD Primary Care Provider [phone] Encounter Details Date Type Department Care Team (Late st Contact Info) Description 11/04/2020 [employer] Message Enc [facility] Medical Group Foot & Ankle Specialists [facility] [phone] [place] [address] Carlos A Ocasio, ROSY [address] [place] [phone] RE: Question Social History Tobacco Use [...] Sex Assigned at Female 10/30/2019 8:35 AM GENERAL MAINTENANCE TECHNICIAN Legal Sex Female 10:55 PM CDT Gender Identity Female 10/30/2019 8:35 AM GENERAL MAINTENANCE TECHNICIAN Sexual Orientation Straight 10/30/2019 8: 35 AM GENERAL MAINTENANCE TECHNICIAN COVID-19 Exposure Response Date Recorded In the last month, have you been in contact with someone who was confirmed or suspected to have Coronavirus / COVID-19? No / Unsure 11/05/2020 8:17 AM GENERAL MAINTENANCE TECHNICIAN documented as of this encounter Functional [...] st Contact Info) Description 08/26/2025 9:00 AM GENERAL MAINTENANCE TECHNICIAN Office Visit [facility] Medical Group Multispecialty Care - [facility] [address] [place] [address] Francisco Levi, [address] [facility] [address] [place] [address] documented as of this encounter Visit Diagnoses [...] Rule Out 09/11/2023 09/11/2023 09/11/2023 10:29 AM GENERAL MAINTENANCE TECHNICIAN COVID-19 Rule Out 03/18/2024 03/18/2024 03/18/2024 8:30 PM CDT COVID-19 Rule Out 05/27/2024 05/27/2024 05/27/2024 7:16 PM CDT documented as of this encounter Care Teams Stage Driver Relationship Specialty [place] [address] [place] [address] PCP - General FAMILY PRACTICE 05/15/20 documented as of this encounter
--- OUTSIDE RECORDS SUMMARY | 2025-04-23 11:16 | XMS_ITS | Encounter Summary ---
Author Organization [facility] Address [address] [place] [address] Care Team Providers Care Card Sorter Name Role Phone Nestor Fletcher MD Primary Care Provider [phone] Encounter Details Date Type Department Care Team (Late st Contact Info) Description 02/01/2023 Business Texter Message Enc [facility] Medical Group Family & Internal Medicine [address] [address] Nestor Fletcher MD [address] [place] [address] Meds Social History Tobacco Use Types [...] Sex Assigned at Female 10/30/2019 8:35 AM ROCK WOOL INSULATOR Legal Sex Female 10:55 PM CDT Gender Identity Female 10/30/2019 8:35 AM ROCK WOOL INSULATOR Sexual Orientation Straight 10/30/2019 8: 35 AM ROCK WOOL INSULATOR COVID-19 Exposure Response Date Recorded In the [...] st Contact Info) Description 08/26/2025 9:00 AM ROCK WOOL INSULATOR Office Visit [facility] Medical Group Multispecialty Care - [facility] [address] [place] [phone] Francisco Levi DO [address] [place] [address] documented as of this encounter Goals Goal [...] Rule Out 09/11/2023 09/11/2023 09/11/2023 10:29 AM ROCK WOOL INSULATOR COVID-19 Rule Out 03/18/2024 03/18/2024 03/18/2024 8:30 PM CDT COVID-19 Rule Out 05/27/2024 05/27/2024 05/27/2024 7:16 PM CDT Assessment Noted Time PHQ-9 Depression Total Score: 0 02/26/20 22 9:40 AM CDT documented as of this encounter Care Teams Card Sorter Relationship Specialty [place] [address] [place] [address] PCP - General FAMILY PRACTICE 05/15/20 documented as of this encounter
--- OUTSIDE RECORDS SUMMARY | 2025-04-23 11:16 | XMS_ITS | Encounter Summary ---
Author Organization [facility] Address [address] [place] [address] Care Team Providers Care Small Package And Bundle Sorter Clerk Name Role Phone Nestor Fletcher MD Primary Care Provider [phone] Encounter Details Date Type Department Care Team (Late st Contact Info) Description 11/19/2020 Apiphany Message [facility] [address] [place] [address] [place] [address] [place] [address] RE: Follow Up/Update Social History [...] Sex Assigned at Female 10/30/2019 8:35 AM DETECTIVE SERGEANT Legal Sex Female 10:55 PM CDT Gender Identity Female 10/30/2019 8:35 AM DETECTIVE SERGEANT Sexual Orientation Straight 10/30/2019 8: 35 AM DETECTIVE SERGEANT COVID-19 Exposure Response Date Recorded In the [...] st Contact Info) Description 08/26/2025 9:00 AM DETECTIVE SERGEANT Office Visit [facility] Medical Group Multispecialty Care - [facility] [address] [place] [address] Francisco Levi DO 3 [facility] [address] [place] [address] documented as of this encounter Visit Diagnoses Not on filedocumented in this encounter Additional Health Concerns Infection Onset Date Last Indicated Resolved Time COVID-19 Rule Out 01/05/2021 01/05/2021 01/05/2021 5:26 PM CDT COVID-19 Rule Out 12/02/2021 12/02/2021 12/02/2021 4:28 PM CDT COVID-19 Rule Out 05/20/2023 05/20/2023 05/20/2023 6:44 PM CDT COVID-19 Rule Out 09/11/2023 09/11/2023 09/11/2023 10:29 AM DETECTIVE SERGEANT COVID-19 Rule Out 03/18/2024 03/18/2024 03/18/2024 8:30 PM CDT COVID-19 Rule Out 05/27/2024 05/27/2024 05/27/2024 7:16 PM CDT documented as of this encounter Care Teams Small Package And Bundle Sorter Clerk Relationship Specialty [place] [address] [place] [address] PCP - General FAMILY PRACTICE 05/15/20 documented as of this encounter
--- OUTSIDE RECORDS SUMMARY | 2025-04-23 11:16 | XMS_ITS | Encounter Summary ---
Author Organization [facility] Address [address] [place] [address] Care Team Providers Care Public Address Servicer Name Role Phone Nestor Fletcher MD Primary Care Provider [phone] Encounter Details Date Type Department Care Team (Late st Contact Info) Description 11/11/2020 Blippar Message [facility] [address] [place] [address] [place] [address] [place] [address] RE: Question Social History Tobacco [...] Sex Assigned at Female 10/30/2019 8:35 AM ASSOCIATE PASTOR Legal Sex Female 10:55 PM CDT Gender Identity Female 10/30/2019 8:35 AM ASSOCIATE PASTOR Sexual Orientation Straight 10/30/2019 8: 35 AM ASSOCIATE PASTOR COVID-19 Exposure Response Date Recorded In the last month, have you been in contact with someone who was confirmed or suspected to have Coronavirus / COVID-19? No / Unsure 11/14/2020 9:59 AM ASSOCIATE PASTOR documented as of this encounter Functional Status [...] st Contact Info) Description 08/26/2025 9:00 AM ASSOCIATE PASTOR Office Visit [facility] Medical Group Multispecialty Care - [facility] [address] [place] [phone] Francisco Levi DO [address] [facility] [address] [address] [place] [address] documented as of this encounter Visit Diagnoses [...] Rule Out 09/11/2023 09/11/2023 09/11/2023 10:29 AM ASSOCIATE PASTOR COVID-19 Rule Out 03/18/2024 03/18/2024 03/18/2024 8:30 PM CDT COVID-19 Rule Out 05/27/2024 05/27/2024 05/27/2024 7:16 PM CDT documented as of this encounter Care Teams Public Address Servicer Relationship Specialty [place] [address] [place] [address] PCP - General FAMILY PRACTICE 05/15/20 documented as of this encounter
--- OUTSIDE RECORDS SUMMARY | 2025-04-23 11:16 | XMS_ITS | Encounter Summary ---
Author Organization [facility] Address [address] [place] [address] Care Team Providers Care Starch Dumper Name Role Phone Nestor Fletcher MD Primary Care Provider [phone] Encounter Details Date Type Department Care Team (Late st Contact Info) Description 11/16/2022 [employer] Message Enc [facility] Medical Group Family & Internal Medicine [address] [address] Nestor Fletcher MD [address] [place] [address] Fridays injection Social History Tobacco Use [...] Sex Assigned at Female 10/30/2019 8:35 AM TRAIN CALLER Legal Sex Female 10:55 PM CDT Gender Identity Female 10/30/2019 8:35 AM TRAIN CALLER Sexual Orientation Straight 10/30/2019 8: 35 AM TRAIN CALLER COVID-19 Exposure Response Date Recorded In the [...] Author Status No 06/06/2022 12:00 PM CDT Georgai Lovell RN Active documented as of this encounter Mental Status * Because of a physical, mental, or emotional condition, do you have serious difficulty concentrating, remembering, or making decisions? Answer Entry Date Author Status No 06/06/2022 12:00 PM CDT Georgia Lvoell RN Active documented in this encounter Plan of Treatment Upcoming Encounters Date Type Department Care Team (Late st Contact Info) Description 08/26/2025 9:00 AM TRAIN CALLER Office Visit [facility] Medical Group Multispecialty Care - [facility] [address] [place] [address] Francisco Levi, [address] [facility] [address] [place] [address] documented as of this encounter Goals Goal [...] Rule Out 09/11/2023 09/11/2023 09/11/2023 10:29 AM TRAIN CALLER COVID-19 Rule Out 03/18/2024 03/18/2024 03/18/2024 8:30 PM CDT COVID-19 Rule Out 05/27/2024 05/27/2024 05/27/2024 7:16 PM CDT Assessment Noted Time PHQ-9 Depression Total Score: 0 02/26/20 22 9:40 AM CDT documented as of this encounter Care Teams Starch Dumper Relationship Specialty [place] [address] [place] [address] PCP - General FAMILY PRACTICE 05/15/20 documented as of this encounter
--- OUTSIDE RECORDS SUMMARY | 2025-04-23 11:16 | XMS_ITS | Encounter Summary ---
Author Organization [facility] Address [address] [place] [address] Care Team Providers Care Geological Sample Tester Name Role Phone Nestor Fletcher MD Primary Care Provider [phone] Encounter Details Date Type Department Care Team (Late st Contact Info) Description 10/19/2020 [employer] Message Enc [facility] Medical Group Family & Internal Medicine [facility] [address] [place] [address] Natali Polo APNP [address] [facility] [address] [place] [address] RE: Question Social History Tobacco Use [...] Sex Assigned at Female 10/30/2019 8:35 AM CATTLE ALLEY WORKER Legal Sex Female 10:55 PM CDT Gender Identity Female 10/30/2019 8:35 AM CATTLE ALLEY WORKER Sexual Orientation Straight 10/30/2019 8: 35 AM CATTLE ALLEY WORKER COVID-19 Exposure Response Date Recorded In the last month, have you been in contact with someone who was confirmed or suspected to have Coronavirus / COVID-19? No / Unsure 10/16/2020 9:30 PM CATTLE ALLEY WORKER documented as of this encounter Functional [...] - 10/20/2020 8:32 AM CST Please advise LE ALLEY WORKER documented in this encounter Plan of Treatment Upcoming Encounters Date Type Department Care Team (Late st Contact Info) Description 08/26/2025 9:00 AM CATTLE ALLEY WORKER Office Visit [facility] Medical Group Multispecialty Care - [facility] [address] [facility] [place] [address] Francisco Levi DO [address] [facility] [address] [place] [address] documented as of this encounter Visit Diagnoses [...] Rule Out 09/11/2023 09/11/2023 09/11/2023 10:29 AM CATTLE ALLEY WORKER COVID-19 Rule Out 03/18/2024 03/18/2024 03/18/2024 8:30 PM CDT COVID-19 Rule Out 05/27/2024 05/27/2024 05/27/2024 7:16 PM CDT documented as of this encounter Care Teams Geological Sample Tester Relationship Specialty [place] [address] [place] [address] PCP - General FAMILY PRACTICE 05/15/20 documented as of this encounter
--- OUTSIDE RECORDS SUMMARY | 2025-04-23 11:17 | XMS_ITS | Encounter Summary ---
Author Organization [facility] Address [address] [place] [address] Care Team Providers Care Cover Marker Name Role Phone Nestor Fletcher MD Primary Care Provider [phone] Encounter Details Date Type Department Care Team (Late st Contact Info) Description 07/18/2023 [employer] Message Enc [facility] Medical Group Family & Internal Medicine [address] [address] Nestor Fletcher MD [address] [place] [address] Nausea and fatigue Social History Tobacco [...] Sex Assigned at Female 10/30/2019 8:35 AM SHOT PEEN OPERATOR Legal Sex Female 10:55 PM CDT Gender Identity Female 10/30/2019 8:35 AM SHOT PEEN OPERATOR Sexual Orientation Straight 10/30/2019 8: 35 AM SHOT PEEN OPERATOR documented as of this encounter Functional [...] st Contact Info) Description 08/26/2025 9:00 AM SHOT PEEN OPERATOR Office Visit [facility] Medical Group Multispecialty Care - [facility] [address] [place] [address] Francisco Levi, [address] [facility] [address] [facility] [address] [place] [address] documented as of this encounter Goals Goal Patient Goal Type Associated Problems Recent Progress Patient-Stated? Author Health - patient able to perform ADLs independently Lifestyle No KoKareem encinas i RN documented as of this encounter Visit Diagnoses Not on filedocumented in this encounter Additional Health Concerns Infection Onset Date Last Indicated Resolved Time COVID-19 Rule Out 09/11/2023 09/11/2023 09/11/2023 10:29 AM SHOT PEEN OPERATOR COVID-19 Rule Out 03/18/2024 03/18/2024 03/18/2024 8:30 PM CDT COVID-19 Rule Out 05/27/2024 05/27/2024 05/27/2024 7:16 PM CDT Assessment Noted Time PHQ-9 Depression Total Score: 0 02/26/20 22 9:40 AM CDT documented as of this encounter Care Teams Cover Marker Relationship Specialty [place] [address] [place] [address] PCP - General FAMILY PRACTICE 05/15/20 documented as of this encounter
--- OUTSIDE RECORDS SUMMARY | 2025-04-23 11:17 | XMS_ITS | Encounter Summary ---
Author Organization [facility] Address [address] [place] [address] Care Team Providers Care Credit Adjuster Name Role Phone Nestor Fletcher MD Primary Care Provider [phone] Encounter Details Date Type Department Care Team (Late st Contact Info) Description 2020 [employer] Message Enc [facility] Medical Group Multispecialty Care - [facility] [address] [place] [address] Francisco Levi DO [address] [facility] [address] [place] [address] RE: Question Social History Tobacco Use Types [...] Sex Assigned at Female 10/30/2019 8:35 AM TABLEAU LEAD Legal Sex Female 10:55 PM CDT Gender Identity Female 10/30/2019 8:35 AM TABLEAU LEAD Sexual Orientation Straight 10/30/2019 8: 35 AM TABLEAU LEAD COVID-19 Exposure Response Date Recorded In the [...] st Contact Info) Description 08/26/2025 9:00 AM TABLEAU LEAD Office Visit [facility] Medical Group Multispecialty Care - [facility] [address] [place] [address] Francisco Lvei, [address] [facility] [address] [place] [address] documented as of this encounter Visit Diagnoses Not on filedocumented in this encounter Additional Health Concerns Infection Onset Date Last Indicated Resolved Time COVID-19 Rule Out 01/05/2021 01/05/2021 01/05/2021 5:26 PM CDT COVID-19 Rule Out 12/02/2021 12/02/2021 12/02/2021 4:28 PM CDT COVID-19 Rule Out 05/20/2023 05/20/2023 05/20/2023 6:44 PM CDT COVID-19 Rule Out 09/11/2023 09/11/2023 09/11/2023 10:29 AM TABLEAU LEAD COVID-19 Rule Out 03/18/2024 03/18/2024 03/18/2024 8:30 PM CDT COVID-19 Rule Out 05/27/2024 05/27/2024 05/27/2024 7:16 PM CDT documented as of this encounter Care Teams Credit Adjuster Relationship Specialty [place] [address] [place] [address] PCP - General FAMILY PRACTICE 05/15/20 documented as of this encounter
--- OUTSIDE RECORDS SUMMARY | 2025-04-23 11:17 | XMS_ITS | Encounter Summary ---
Author Organization [facility] Address [address] [place] [address] Care Team Providers Care Set Rider Name Role Phone Nestor Fletcher MD Primary Care Provider [phone] Encounter Details Date Type Department Care Team (Late st Contact Info) Description 06/13/2023 bepretty Message Enc [facility] Medical Group Family & Internal Medicine [address] [address] Nestor Fletcher MD [address] [place] [address] Steroids and blood work Social History [...] Sex Assigned at Female 10/30/2019 8:35 AM STEM ROLLER Legal Sex Female 10:55 PM CDT Gender Identity Female 10/30/2019 8:35 AM STEM ROLLER Sexual Orientation Straight 10/30/2019 8: 35 AM STEM ROLLER documented as of this encounter Functional Status [...] st Contact Info) Description 08/26/2025 9:00 AM STEM ROLLER Office Visit [facility] Medical Group Multispecialty Care - [facility] [address] [place] [address] Francisco Levi, [address] [facility] [address] [place] [address] documented as of this encounter Goals Goal Patient Goal Type Associated Problems Recent Progress Patient-Stated? Author Health - patient able to perform ADLs independently Lifestyle No Vega hendrickson, Kareem Camacho RN documented as of this encounter Visit Diagnoses Not on filedocumented in this encounter Additional Health Concerns Infection Onset Date Last Indicated Resolved Time COVID-19 Rule Out 09/11/2023 09/11/2023 09/11/2023 10:29 AM STEM ROLLER COVID-19 Rule Out 03/18/2024 03/18/2024 03/18/2024 8:30 PM CDT COVID-19 Rule Out 05/27/2024 05/27/2024 05/27/2024 7:16 PM CDT Assessment Noted Time PHQ-9 Depression Total Score: 0 02/26/20 22 9:40 AM CDT documented as of this encounter Care Teams Set Rider Relationship Specialty [place] [address] [place] [address] PCP - General FAMILY PRACTICE 05/15/20 documented as of this encounter
--- OUTSIDE RECORDS SUMMARY | 2025-04-23 11:17 | XMS_ITS | Encounter Summary ---
Author Organization [facility] Address [address] [place] [address] Care Team Providers Care Appliance Counselor Name Role Phone Nestor Fletcher MD Primary Care Provider [phone] Encounter Details Date Type Department Care Team (Late st Contact Info) Description 01/22/2021 [employer] Message Enc [facility] Medical Group Family & Internal Medicine [address] [address] Nestor Fletcher MD [address] [place] [address] RE: Question Social History Tobacco Use [...] Sex Assigned at Female 10/30/2019 8:35 AM TRUCK JUMPER Legal Sex Female 10:55 PM CDT Gender Identity Female 10/30/2019 8:35 AM TRUCK JUMPER Sexual Orientation Straight 10/30/2019 8: 35 AM TRUCK JUMPER COVID-19 Exposure Response Date Recorded In the [...] st Contact Info) Description 08/26/2025 9:00 AM TRUCK JUMPER Office Visit [facility] Medical Group Multispecialty Care - [facility] [address] [place] [address] Francisco Levi DO [address] [facility] [address] [place] [address] documented as of this encounter Visit Diagnoses Not on filedocumented in this encounter Additional Health Concerns Infection Onset Date Last Indicated Resolved Time COVID-19 Rule Out 12/02/2021 12/02/2021 12/02/2021 4:28 PM CDT COVID-19 Rule Out 05/20/2023 05/20/2023 05/20/2023 6:44 PM CDT COVID-19 Rule Out 09/11/2023 09/11/2023 09/11/2023 10:29 AM TRUCK JUMPER COVID-19 Rule Out 03/18/2024 03/18/2024 03/18/2024 8:30 PM CDT COVID-19 Rule Out 05/27/2024 05/27/2024 05/27/2024 7:16 PM CDT documented as of this encounter Care Teams Appliance Counselor Relationship Specialty [place] [address] [place] [address] PCP - General FAMILY PRACTICE 05/15/20 documented as of this encounter
--- OUTSIDE RECORDS SUMMARY | 2025-04-23 11:17 | XMS_ITS | Encounter Summary ---
Author Organization [facility] Address [address] [place] [address] Care Team Providers Care Occupational Therapy Aide Name Role Phone Nestor Fletcher MD Primary Care Provider [phone] Encounter Details Date Type Department Care Team (Late st Contact Info) Description 08/21/2023 [employer] Message Enc [facility] Medical Group Family & Internal Medicine [address] [address] Nestor Fletcher MD [address] [place] [place] [address] Meds Social History Tobacco Use Types [...] Sex Assigned at Female 10/30/2019 8:35 AM PREMIUM SERVICE REPRESENTATIVE Legal Sex Female 10:55 PM CDT Gender Identity Female 10/30/2019 8:35 AM PREMIUM SERVICE REPRESENTATIVE Sexual Orientation Straight 10/30/2019 8: 35 AM PREMIUM SERVICE REPRESENTATIVE documented as of this encounter Functional [...] st Contact Info) Description 08/26/2025 9:00 AM PREMIUM SERVICE REPRESENTATIVE Office Visit [facility] Medical Group Multispecialty Care - [facility] [address] [place] [address] Francisco Levi, [address] [facility] [address] [place] [address] documented as of this encounter Goals Goal Patient Goal Type Associated Problems Recent Progress Patient-Stated? Author Health - patient able to perform ADLs independently Lifestyle No KoerKareem elliott i RN documented as of this encounter Visit Diagnoses Not on filedocumented in this encounter Additional Health Concerns Infection Onset Date Last Indicated Resolved Time COVID-19 Rule Out 09/11/2023 09/11/2023 09/11/2023 10:29 AM PREMIUM SERVICE REPRESENTATIVE COVID-19 Rule Out 03/18/2024 03/18/2024 03/18/2024 8:30 PM CDT COVID-19 Rule Out 05/27/2024 05/27/2024 05/27/2024 7:16 PM CDT Assessment Noted Time PHQ-9 Depression Total Score: 0 02/26/20 22 9:40 AM CDT documented as of this encounter Care Teams Occupational Therapy Aide Relationship Specialty [place] [address] [place] [address] PCP - General FAMILY PRACTICE 05/15/20 documented as of this encounter
--- OUTSIDE RECORDS SUMMARY | 2025-04-23 11:17 | XMS_ITS | Encounter Summary ---
Author Organization [facility] Address [address] [place] [address] Care Team Providers Care Devops Consultant Name Role Phone Nestor Fletcher MD Primary Care Provider [phone] Encounter Details Date Type Department Care Team (Late st Contact Info) Description 04/15/2023 [employer]ok Message Enc [facility] Medical Group Family & Internal Medicine [address] [address] Nestor Fletcher MD [address] [place] [address] Meds Social History Tobacco Use Types [...] Sex Assigned at Female 10/30/2019 8:35 AM THERMO PROCESSOR Legal Sex Female 10:55 PM CDT Gender Identity Female 10/30/2019 8:35 AM THERMO PROCESSOR Sexual Orientation Straight 10/30/2019 8: 35 AM THERMO PROCESSOR documented as of this encounter Functional [...] st Contact Info) Description 08/26/2025 9:00 AM THERMO PROCESSOR Office Visit [facility] Medical Group Multispecialty Care - [facility] [address] [facility] [place] [address] Francisco Levi, [address] [facility] [address] [place] [address] documented as of this encounter Goals Goal [...] Rule Out 09/11/2023 09/11/2023 09/11/2023 10:29 AM THERMO PROCESSOR COVID-19 Rule Out 03/18/2024 03/18/2024 03/18/2024 8:30 PM CDT COVID-19 Rule Out 05/27/2024 05/27/2024 05/27/2024 7:16 PM CDT Assessment Noted Time PHQ-9 Depression Total Score: 0 02/26/20 9:40 AM CDT documented as of this encounter Care Teams Devops Consultant Relationship Specialty [place] [address] [place] [address] PCP - General FAMILY PRACTICE 05/15/20 documented as of this encounter
--- OUTSIDE RECORDS SUMMARY | 2025-04-23 11:17 | XMS_ITS | Encounter Summary ---
Author Organization [facility] Address [address] [place] [address] Care Team Providers Care Ophthalmic Asst Name Role Phone Nestro Fletcher MD Primary Care Provider [phone] Encounter Details Date Type Department Care Team (Late st Contact Info) Description 04/05/2023 [employer] Message Enc [facility] Medical Group Family & Internal Medicine [address] [address] Nestor Fletcher MD [address] [place] [address] Test results Social History Tobacco Use [...] Sex Assigned at Female 10/30/2019 8:35 AM VENEER TAPER Legal Sex Female 10:55 PM CDT Gender Identity Female 10/30/2019 8:35 AM VENEER TAPER Sexual Orientation Straight 10/30/2019 8: 35 AM VENEER TAPER documented as of this encounter Functional Status [...] st Contact Info) Description 08/26/2025 9:00 AM VENEER TAPER Office Visit [facility] Medical Group Multispecialty Care - [facility] [address] [place] [address] Francisco Levi, [address] [facility] [address] [place] [address] documented as of this encounter Goals Goal [...] Rule Out 09/11/2023 09/11/2023 09/11/2023 10:29 AM VENEER TAPER COVID-19 Rule Out 03/18/2024 03/18/2024 03/18/2024 8:30 PM CDT COVID-19 Rule Out 05/27/2024 05/27/2024 05/27/2024 7:16 PM CDT Assessment Noted Time PHQ-9 Depression Total Score: 0 02/26/20 9:40 AM CDT documented as of this encounter Care Teams Ophthalmic Asst Relationship Specialty [place] [address] [place] [address] PCP - General FAMILY PRACTICE 05/15/20 documented as of this encounter
--- OUTSIDE RECORDS SUMMARY | 2025-04-23 11:17 | XMS_ITS | Encounter Summary ---
Author Organization [facility] Address [address] [place] [address] Care Team Providers Care Cryptozoologist Name Role Phone Nestor Fletcher MD Primary Care Provider +1 [phone] Encounter Details Date Type Department Care Team (Late st Contact Info) Description 2020 [employer]Dream[employer] Message Enc [facility] Medical Group Family & Internal Medicine [address] [address] Nestor Fletcher MD [address] [place] [address] RE: Question Social History Tobacco Use [...] Sex Assigned at Female 10/30/2019 8:35 AM LAYBOY TENDER Legal Sex Female 10:55 PM CDT Gender Identity Female 10/30/2019 8:35 AM LAYBOY TENDER Sexual Orientation Straight 10/30/2019 8: 35 AM LAYBOY TENDER COVID-19 Exposure Response Date Recorded In [...] st Contact Info) Description 08/26/2025 9:00 AM LAYBOY TENDER Office Visit [facility] Medical Group Multispecialty Care - [facility] [address] [place] [address] Francisco Levi DO [address] [facility] [address] [place] [address] documented as of this encounter Visit Diagnoses Not on filedocumented in this encounter Additional Health Concerns Infection Onset Date Last Indicated Resolved Time COVID-19 Rule Out 01/05/2021 01/05/2021 01/05/2021 5:26 PM CDT COVID-19 Rule Out 12/02/2021 12/02/2021 12/02/2021 4:28 PM CDT COVID-19 Rule Out 05/20/2023 05/20/2023 05/20/2023 6:44 PM CDT COVID-19 Rule Out 09/11/2023 09/11/2023 09/11/2023 10:29 AM LAYBOY TENDER COVID-19 Rule Out 03/18/2024 03/18/2024 03/18/2024 8:30 PM CDT COVID-19 Rule Out 05/27/2024 05/27/2024 05/27/2024 7:16 PM CDT documented as of this encounter Care Teams Cryptozoologist Relationship Specialty [place] [address] [place] [address] PCP - General FAMILY PRACTICE 05/15/20 documented as of this encounter
--- OUTSIDE RECORDS SUMMARY | 2025-04-23 11:17 | XMS_ITS | Encounter Summary ---
Author Organization [facility] Address [address] [place] [address] Care Team Providers Care Digital Imager Name Role Phone Nestor Fletcher MD Primary Care Provider +1 [phone] Encounter Details Date Type Department Care Team (Late st Contact Info) Description 07/18/2023 Burst Mediat Message Enc [facility] Medical Group Multispecialty Care - [facility] [address] [facility], [address] [place] [phone] Eusebio Ron MD 3 [place] [address] Nausea and fatigue Social History Tobacco Use [...] Sex Assigned at Female 10/30/2019 8:35 AM FACILITIES AND GROUNDS DIRECTOR Legal Sex Female 10:55 PM CDT Gender Identity Female 10/30/2019 8:35 AM FACILITIES AND GROUNDS DIRECTOR Sexual Orientation Straight 10/30/2019 8: 35 AM FACILITIES AND GROUNDS DIRECTOR documented as of this encounter Functional [...] worse when sitting up vs lying flat? LITIES AND GROUNDS DIRECTOR * Cony Lyle LPN - 07/18/2023 1:42 PM CST Called patient back. She states she denies pain/ LEONARD, was given Zofran for nausea, though it is not helping. Was told by radiology to f/u with neurosx (Dr. Ron). LITIES AND GROUNDS DIRECTOR documented in this encounter Plan of Treatment Upcoming Encounters Date Type Department Care Team (Late st Contact Info) Description 08/26/2025 9:00 AM FACILITIES AND GROUNDS DIRECTOR Office Visit [facility] Medical Group Multispecialty Care - [facility] [address] [place] [address] Francisco Levi DO [address] [facility] [place] [address] documented as of this encounter Goals Goal Patient Goal Type Associated Problems Recent Progress Patient-Stated? Author Health - patient able to perform ADLs independently Lifestyle No Vega i er, Kareem Camacho RN documented as of this encounter Visit Diagnoses Not on filedocumented in this encounter Additional Health Concerns Infection Onset Date Last Indicated Resolved Time COVID-19 Rule Out 09/11/2023 09/11/2023 09/11/2023 10:29 AM FACILITIES AND GROUNDS DIRECTOR COVID-19 Rule Out 03/18/2024 03/18/2024 03/18/2024 8:30 PM CDT COVID-19 Rule Out 05/27/2024 05/27/2024 05/27/2024 7:16 PM CDT Assessment Noted Time PHQ-9 Depression Total Score: 0 02/26/20 22 9:40 AM CDT documented as of this encounter Care Teams Digital Imager Relationship Specialty [place] [address] [place] [address] PCP - General FAMILY PRACTICE 05/15/20 documented as of this encounter
--- OUTSIDE RECORDS SUMMARY | 2025-04-23 11:17 | XMS_ITS | Encounter Summary ---
Author Organization [facility] Address [address] [place] [address] Care Team Providers Care Order Tracer Name Role Phone Nestor Fletcher MD Primary Care Provider +1 [phone] Encounter Details Date Type Department Care Team (Late st Contact Info) Description 07/13/2021 [employer] Message Enc [facility] Medical Group Family & Internal Medicine [address] [address] Nestor Fletcher MD [address] [place] [address] RE: Question Social History Tobacco Use [...] Sex Assigned at Female 10/30/2019 8:35 AM OCEANIC SCIENCES PROFESSOR Legal Sex Female 10:55 PM CDT Gender Identity Female 10/30/2019 8:35 AM OCEANIC SCIENCES PROFESSOR Sexual Orientation Straight 10/30/2019 8: 35 AM OCEANIC SCIENCES PROFESSOR COVID-19 Exposure Response Date Recorded In the [...] st Contact Info) Description 08/26/2025 9:00 AM OCEANIC SCIENCES PROFESSOR Office Visit [facility] Medical Group Multispecialty Care - [facility] [address] [place] [address] Francisco Levi DO [address] [facility] [address] [place] [address] documented as of this encounter Visit Diagnoses Not on filedocumented in this encounter Additional Health Concerns Infection Onset Date Last Indicated Resolved Time COVID-19 Rule Out 12/02/2021 12/02/2021 12/02/2021 4:28 PM CDT COVID-19 Rule Out 05/20/2023 05/20/2023 05/20/2023 6:44 PM CDT COVID-19 Rule Out 09/11/2023 09/11/2023 09/11/2023 10:29 AM OCEANIC SCIENCES PROFESSOR COVID-19 Rule Out 03/18/2024 03/18/2024 03/18/2024 8:30 PM CDT COVID-19 Rule Out 05/27/2024 05/27/2024 05/27/2024 7:16 PM CDT Assessment Noted Time PHQ-9 Depression Total Score: 0 03/30/20 21 11:05 AM CDT documented as of this encounter Care Teams Order Tracer Relationship Specialty [place] [address] [place] [address] PCP - General FAMILY PRACTICE 05/15/20 documented as of this encounter
--- OUTSIDE RECORDS SUMMARY | 2025-04-23 11:17 | XMS_ITS | Encounter Summary ---
Author Organization [facility] Address [address] [place] [address] Care Team Providers Care Flagsetter Name Role Phone Nestor Fletcher MD Primary Care Provider +1 [phone] Encounter Details Date Type Department Care Team (Late st Contact Info) Description 04/13/2023 [employer] Message Enc [facility] Medical Group Family & Internal Medicine [address] [address] Nestor Fletcher MD [address] [place] [address] Weight loss Social History Tobacco Use [...] Sex Assigned at Female 10/30/2019 8:35 AM INTERNAL GRINDER TENDER Legal Sex Female 10:55 PM CDT Gender Identity Female 10/30/2019 8:35 AM INTERNAL GRINDER TENDER Sexual Orientation Straight 10/30/2019 8: 35 AM INTERNAL GRINDER TENDER documented as of this encounter Functional Status [...] Status No 06/06/2022 12:00 PM CDT Geogria Lovell RN Active * Because of a [...] st Contact Info) Description 08/26/2025 9:00 AM INTERNAL GRINDER TENDER Office Visit [facility] Medical Group Multispecialty Care - [facility] [address] [place] [address] Francisco Levi, DO [address] [facility] [address] [place] [address] documented as of this encounter Goals Goal [...] Rule Out 09/11/2023 09/11/2023 09/11/2023 10:29 AM INTERNAL GRINDER TENDER COVID-19 Rule Out 03/18/2024 03/18/2024 03/18/2024 8:30 PM CDT COVID-19 Rule Out 05/27/2024 05/27/2024 05/27/2024 7:16 PM CDT Assessment Noted Time PHQ-9 Depression Total Score: 0 02/26/20 22 9:40 AM CDT documented as of this encounter Care Teams Flagsetter Relationship Specialty [place] [address] [place] [address] PCP - General FAMILY PRACTICE 05/15/20 documented as of this encounter
--- OUTSIDE RECORDS SUMMARY | 2025-04-23 11:17 | XMS_ITS | Encounter Summary ---
Author Organization [facility] Address [address] [place] [address] Care Team Providers Care Mysql Database Administrator Name Role Phone Nestor Fletcher MD Primary Care Provider +1 [phone] Encounter Details Date Type Department Care Team (Late st Contact Info) Description 04/19/2023 Videojugt Message Enc [facility] Medical Group Multispecialty Care - [facility] [address] [facility], [address] [place] [address] Eusebio Ron MD 3 [place] [address] Imaging Social History Tobacco Use Types Packs/Day [...] Sex Assigned at Female 10/30/2019 8:35 AM BOTTLE LINE WORKER Legal Sex Female 10:55 PM CDT Gender Identity Female 10/30/2019 8:35 AM BOTTLE LINE WORKER Sexual Orientation Straight 10/30/2019 8: 35 AM BOTTLE LINE WORKER documented as of this encounter Functional [...] st Contact Info) Description 08/26/2025 9:00 AM BOTTLE LINE WORKER Office Visit [facility] Medical Group Multispecialty Care - [facility] [address] [place] [address] Francisco Levi DO [address] [facility] [address] [place] [address] documented as of this encounter Goals Goal Patient Goal Type Associated Problems Recent Progress Patient-Stated? Author Health - patient able to perform ADLs independently Lifestyle No Vega hendrickson, Kareem L, RN documented as of this encounter Visit Diagnoses Not on filedocumented in this encounter Additional Health Concerns Infection Onset Date Last Indicated Resolved Time COVID-19 Rule Out 05/20/2023 05/20/2023 05/20/2023 6:44 PM CDT COVID-19 Rule Out 09/11/2023 09/11/2023 09/11/2023 10:29 AM BOTTLE LINE WORKER COVID-19 Rule Out 03/18/2024 03/18/2024 03/18/2024 8:30 PM CDT COVID-19 Rule Out 05/27/2024 05/27/2024 05/27/2024 7:16 PM CDT Assessment Noted Time PHQ-9 Depression Total Score: 0 02/26/20 22 9:40 AM CDT documented as of this encounter Care Teams Mysql Database Administrator Relationship Specialty [place] [address] [place] [address] PCP - General FAMILY PRACTICE 05/15/20 documented as of this encounter
--- OUTSIDE RECORDS SUMMARY | 2025-04-23 11:17 | XMS_ITS | Encounter Summary ---
Author Organization [facility] Address [address] [place] [address] Care Team Providers Care Glue Reel Operator Name Role Phone Nestor Fletcher MD Primary Care Provider +1 [phone] Encounter Details Date Type Department Care Team (Late st Contact Info) Description 07/14/2023 Audiosocket Message Enc [facility] Medical Group Family & Internal Medicine [address] [address] Nestor Fletcher MD [address] [place] [address] Nauseous Social History Tobacco Use Types [...] Sex Assigned at Female 10/30/2019 8:35 AM BROILER MANAGER Legal Sex Female 10:55 PM CDT Gender Identity Female 10/30/2019 8:35 AM BROILER MANAGER Sexual Orientation Straight 10/30/2019 8: 35 AM BROILER MANAGER documented as of this encounter Functional [...] st Contact Info) Description 08/26/2025 9:00 AM BROILER MANAGER Office Visit [facility] Medical Group Multispecialty Care - [facility] [address] [place] [address] Francisco Levi, [address] [facility] [address] [place] [address] documented as of this encounter Goals Goal Patient Goal Type Associated Problems Recent Progress Patient-Stated? Author Health - patient able to perform ADLs independently Lifestyle No KoerKareem elliott i RN documented as of this encounter Visit Diagnoses Not on filedocumented in this encounter Additional Health Concerns Infection Onset Date Last Indicated Resolved Time COVID-19 Rule Out 09/11/2023 09/11/2023 09/11/2023 10:29 AM BROILER MANAGER COVID-19 Rule Out 03/18/2024 03/18/2024 03/18/2024 8:30 PM CDT COVID-19 Rule Out 05/27/2024 05/27/2024 05/27/2024 7:16 PM CDT Assessment Noted Time PHQ-9 Depression Total Score: 0 02/26/20 22 9:40 AM CDT documented as of this encounter Care Teams Glue Reel Operator Relationship Specialty [place] [address] [place] [address] PCP - General FAMILY PRACTICE 05/15/20 documented as of this encounter
--- OUTSIDE RECORDS SUMMARY | 2025-04-23 11:17 | XMS_ITS | Encounter Summary ---
Author Organization [facility] Address [address] [place] [address] Care Team Providers Care Golf Ball Cover Treater Name Role Phone Nestor Fletcher MD Primary Care Provider +1 [phone] Encounter Details Date Type Department Care Team (Late st Contact Info) Description 07/19/2021 Tweet Category Message Enc [facility] Medical Group Family & Internal Medicine [address] [address] Nestor Fletcher MD [address] [place] [address] MRI Social History Tobacco Use Types [...] Sex Assigned at Female 10/30/2019 8:35 AM PAPER SHEETER Legal Sex Female 10:55 PM CDT Gender Identity Female 10/30/2019 8:35 AM PAPER SHEETER Sexual Orientation Straight 10/30/2019 8: 35 AM PAPER SHEETER COVID-19 Exposure Response Date Recorded In the [...] st Contact Info) Description 08/26/2025 9:00 AM PAPER SHEETER Office Visit [facility] Medical Group Multispecialty Care - [facility] [address] [place] [address] Francisco Levi DO [address] [facility] [address] [place] [address] documented as of this encounter Visit Diagnoses Not on filedocumented in this encounter Additional Health Concerns Infection Onset Date Last Indicated Resolved Time COVID-19 Rule Out 12/02/2021 12/02/2021 12/02/2021 4:28 PM CDT COVID-19 Rule Out 05/20/2023 05/20/2023 05/20/2023 6:44 PM CDT COVID-19 Rule Out 09/11/2023 09/11/2023 09/11/2023 10:29 AM PAPER SHEETER COVID-19 Rule Out 03/18/2024 03/18/2024 03/18/2024 8:30 PM CDT COVID-19 Rule Out 05/27/2024 05/27/2024 05/27/2024 7:16 PM CDT Assessment Noted Time PHQ-9 Depression Total Score: 0 03/30/20 21 11:05 AM CDT documented as of this encounter Care Teams Golf Ball Cover Treater Relationship Specialty [place] [address] [place] [address] PCP - General FAMILY PRACTICE 05/15/20 documented as of this encounter
--- OUTSIDE RECORDS SUMMARY | 2025-04-23 11:17 | XMS_ITS | Encounter Summary ---
Author Organization [facility] Address [address] [place] [address] Care Team Providers Care University Partnership Rep Name Role Phone Nestor Fletcher MD Primary Care Provider [phone] [phone] Encounter Details Date Type Department Care Team (Late st Contact Info) Description 07/04/2023 Endpoint Clinicalt Message Enc [facility] Medical Group Multispecialty Care - [facility] [address] [facility], [address] [place] [address] Eusebio Ron MD 3 [place] [address] Fall Social History Tobacco Use Types Packs/Day [...] Sex Assigned at Female 10/30/2019 8:35 AM CRANE OPERATOR Legal Sex Female 10:55 PM CDT Gender Identity Female 10/30/2019 8:35 AM CRANE OPERATOR Sexual Orientation Straight 10/30/2019 8: 35 AM CRANE OPERATOR documented as of this encounter Functional [...] - 07/04/2023 2:16 PM CDT Forwarding to [facility] documented in this encounter Plan of Treatment Upcoming Encounters Date Type Department Care Team (Late st Contact Info) Description 08/26/2025 9:00 AM CRANE OPERATOR Office Visit [facility] Medical Group Multispecialty Care - [facility] [address] [facility] [place] [address] Francisco Levi, [address] [facility] [address] [place] [address] documented as of this encounter Goals Goal Patient Goal Type Associated Problems Recent Progress Patient-Stated? Author Health - patient able to perform ADLs independently Lifestyle No Carrollerodmo i madhavi, Kareem Camacoh RN documented as of this encounter Visit Diagnoses Not on filedocumented in this encounter Additional Health Concerns Infection Onset Date Last Indicated Resolved Time COVID-19 Rule Out 09/11/2023 09/11/2023 09/11/2023 10:29 AM CRANE OPERATOR COVID-19 Rule Out 03/18/2024 03/18/2024 03/18/2024 8:30 PM CDT COVID-19 Rule Out 05/27/2024 05/27/2024 05/27/2024 7:16 PM CDT Assessment Noted Time PHQ-9 Depression Total Score: 0 02/26/20 22 9:40 AM CDT documented as of this encounter Care Teams University Partnership Rep Relationship Specialty [place] [address] [place] [address] PCP - General FAMILY PRACTICE 05/15/20 documented as of this encounter
--- OUTSIDE RECORDS SUMMARY | 2025-04-23 11:17 | XMS_ITS | Encounter Summary ---
Author Organization [facility] Address [address] [place] [address] Care Team Providers Care Head Strength And Conditioning Coach Name Role Phone Nestor Fletcher MD Primary Care Provider +1 [phone] Encounter Details Date Type Department Care Team (Latest Contact Info) Description 02/24/2021 Nimia Message Enc [facility] Medical Group Multispecialty Care - [facility] [address] [place] [address] Francisco Levi DO [address] [facility] [address] [place] [address] RE: Follow Up/Update Social History Tobacco Use [...] Sex Assigned at Female 10/30/2019 8:35 AM MANAGING PARTNER DIGITAL CONTENT MARKETING [place] Legal Sex Female 10:55 PM CDT Gender Identity Female 10/30/2019 8:35 AM MANAGING PARTNER DIGITAL CONTENT MARKETING [place] Sexual Orientation Straight 10/30/2019 8: 35 AM MANAGING PARTNER DIGITAL CONTENT MARKETING [place] COVID-19 Exposure Response Date Recorded In the [...] st Contact Info) Description 08/26/2025 9:00 AM MANAGING PARTNER DIGITAL CONTENT MARKETING [place] Office Visit [facility] Medical Group Multispecialty Care - [facility] [address] [place] [address] Francisco Levi DO [address] [facility] [address] [place] [address] documented as of this encounter Visit Diagnoses Not on filedocumented in this encounter Additional Health Concerns Infection Onset Date Last Indicated Resolved Time COVID-19 Rule Out 12/02/2021 12/02/2021 12/02/2021 4:28 PM CDT COVID-19 Rule Out 05/20/2023 05/20/2023 05/20/2023 6:44 PM CDT COVID-19 Rule Out 09/11/2023 09/11/2023 09/11/2023 10:29 AM MANAGING PARTNER DIGITAL CONTENT MARKETING [place] COVID-19 Rule Out 03/18/2024 03/18/2024 03/18/2024 8:30 PM CDT COVID-19 Rule Out 05/27/2024 05/27/2024 05/27/2024 7:16 PM CDT documented as of this encounter Care Teams Head Strength And Conditioning Coach Relationship Specialty [place] [address] [place] [address] PCP - General FAMILY PRACTICE 05/15/20 documented as of this encounter
--- OUTSIDE RECORDS SUMMARY | 2025-04-23 11:17 | XMS_ITS | Encounter Summary ---
Author Organization [facility] Address [address] [place] [address] Care Team Providers Care Weatherization Technician Name Role Phone Nestor Fletcher MD Primary Care Provider [phone] [phone] Encounter Details Date Type Department Care Team (Late st Contact Info) Description 07/24/2023 Lover[employer] Message Enc [facility] Medical Group Family & Internal Medicine [address] [address] Nestor Fletcher MD [address] [place] [address] [id number] Social History Tobacco Use Types Packs/Day Years [...] Sex Assigned at Female 10/30/2019 8:35 AM INDUSTRIAL CHEMISTRY TEACHER Legal Sex Female 10:55 PM CDT Gender Identity Female 10/30/2019 8:35 AM INDUSTRIAL CHEMISTRY TEACHER Sexual Orientation Straight 10/30/2019 8: 35 AM INDUSTRIAL CHEMISTRY TEACHER documented as of this encounter Functional [...] st Contact Info) Description 08/26/2025 9:00 AM INDUSTRIAL CHEMISTRY TEACHER Office Visit [facility] Medical Group Multispecialty Care - [facility] [address] [place] [address] Francisco Levi, [address] [place] [address] documented as of this encounter Goals Goal Patient Goal Type Associated Problems Recent Progress Patient-Stated? Author Health - patient able to perform ADLs independently Lifestyle No KoerKareem elliott i RN documented as of this encounter Visit Diagnoses Not on filedocumented in this encounter Additional Health Concerns Infection Onset Date Last Indicated Resolved Time COVID-19 Rule Out 09/11/2023 09/11/2023 09/11/2023 10:29 AM INDUSTRIAL CHEMISTRY TEACHER COVID-19 Rule Out 03/18/2024 03/18/2024 03/18/2024 8:30 PM CDT COVID-19 Rule Out 05/27/2024 05/27/2024 05/27/2024 7:16 PM CDT Assessment Noted Time PHQ-9 Depression Total Score: 0 02/26/20 22 9:40 AM CDT documented as of this encounter Care Teams Weatherization Technician Relationship Specialty [place] [address] [place] [address] PCP - General FAMILY PRACTICE 05/15/20 documented as of this encounter
--- OUTSIDE RECORDS SUMMARY | 2025-04-23 11:17 | XMS_ITS | Encounter Summary ---
Author Organization [facility] Address [address] [place] [address] Care Team Providers Care Oral And Maxillofacial Surgery Name Role Phone Nestor Fletcher MD Primary Care Provider [phone] Encounter Details Date Type Department Care Team (Late st Contact Info) Description 08/03/2021 Noitavonne Message [facility]-[address] [address] Angelica Archer, TUB WASHER [address] [address] Drop in BP Social History [...] Sex Assigned at Female 10/30/2019 8:35 AM CENTRAL OFFICE SUPERVISOR Legal Sex Female 10:55 PM CDT Gender Identity Female 10/30/2019 8:35 AM CENTRAL OFFICE SUPERVISOR Sexual Orientation Straight 10/30/2019 8: 35 AM CENTRAL OFFICE SUPERVISOR COVID-19 Exposure Response Date Recorded In the last month, have you been in contact with someone who was confirmed or suspected to have Coronavirus / COVID-19? No / Unsure 08/05/2021 9:15 AM CENTRAL OFFICE SUPERVISOR documented as of this encounter Functional [...] st Contact Info) Description 08/26/2025 9:00 AM CENTRAL OFFICE SUPERVISOR Office Visit [facility] Medical Group Multispecialty Care - [facility] [address] [place] [address] Francisco Levi DO [address] [facility] [address] [place] [address] documented as of this encounter Visit Diagnoses Not on filedocumented in this encounter Additional Health Concerns Infection Onset Date Last Indicated Resolved Time COVID-19 Rule Out 12/02/2021 12/02/2021 12/02/2021 4:28 PM CDT COVID-19 Rule Out 05/20/2023 05/20/2023 05/20/2023 6:44 PM CDT COVID-19 Rule Out 09/11/2023 09/11/2023 09/11/2023 10:29 AM CENTRAL OFFICE SUPERVISOR COVID-19 Rule Out 03/18/2024 03/18/2024 03/18/2024 8:30 PM CDT COVID-19 Rule Out 05/27/2024 05/27/2024 05/27/2024 7:16 PM CDT Assessment Noted Time PHQ-9 Depression Total Score: 0 03/30/20 21 11:05 AM CDT documented as of this encounter Care Teams Oral And Maxillofacial Surgery Relationship Specialty [place] [address] [place] [address] PCP - General FAMILY PRACTICE 05/15/20 documented as of this encounter
--- OUTSIDE RECORDS SUMMARY | 2025-04-23 11:17 | XMS_ITS | Encounter Summary ---
Author Organization [facility] Address [address] [place] [address] Care Team Providers Care Local Company Intermodal Truck Driver Name Role Phone Nestor Fletcher MD Primary Care Provider [phone] [phone] Encounter Details Date Type Department Care Team (Late st Contact Info) Description 01/13/2021 Working Equity Message Enc [facility] Medical Group Family & Internal Medicine [address] [address] Nestor Fletcher MD [address] [place] [address] RE: Question Social History Tobacco Use [...] Sex Assigned at Female 10/30/2019 8:35 AM QUALITY SYSTEMS SPECIALIST Legal Sex Female 10:55 PM CDT Gender Identity Female 10/30/2019 8:35 AM QUALITY SYSTEMS SPECIALIST Sexual Orientation Straight 10/30/2019 8: 35 AM QUALITY SYSTEMS SPECIALIST COVID-19 Exposure Response Date Recorded In [...] st Contact Info) Description 08/26/2025 9:00 AM QUALITY SYSTEMS SPECIALIST Office Visit [facility] Medical Group Multispecialty Care - [facility] [address] [place] [address] Francisco Levi DO [address] [facility] [address] [place] [address] documented as of this encounter Visit Diagnoses Not on filedocumented in this encounter Additional Health Concerns Infection Onset Date Last Indicated Resolved Time COVID-19 Rule Out 12/02/2021 12/02/2021 12/02/2021 4:28 PM CDT COVID-19 Rule Out 05/20/2023 05/20/2023 05/20/2023 6:44 PM CDT COVID-19 Rule Out 09/11/2023 09/11/2023 09/11/2023 10:29 AM QUALITY SYSTEMS SPECIALIST COVID-19 Rule Out 03/18/2024 03/18/2024 03/18/2024 8:30 PM CDT COVID-19 Rule Out 05/27/2024 05/27/2024 05/27/2024 7:16 PM CDT documented as of this encounter Care Teams Local Company Intermodal Truck Driver Relationship Specialty [place] [address] [place] [address] PCP - General FAMILY PRACTICE 05/15/20 documented as of this encounter
--- OUTSIDE RECORDS SUMMARY | 2025-04-23 11:17 | XMS_ITS | Encounter Summary ---
Author Organization [facility] Address [address] [place] [address] Care Team Providers Care Prescription Eyeglass Maker Name Role Phone Nestor Fletcher MD Primary Care Provider [phone] Encounter Details Date Type Department Care Team (Late st Contact Info) Description 03/12/2023 SuperCloudt Message Enc [facility] Medical Group Multispecialty Care - [facility] [address] [facility], [address] [place] [phone] Eusebio Ron MD 3 [place] [address] Appointment Social History Tobacco Use Types Packs/Day [...] Sex Assigned at Female 10/30/2019 8:35 AM STOCKROOM SUPERVISOR Legal Sex Female 10:55 PM CDT Gender Identity Female 10/30/2019 8:35 AM STOCKROOM SUPERVISOR Sexual Orientation Straight 10/30/2019 8: 35 AM STOCKROOM SUPERVISOR COVID-19 Exposure Response Date Recorded In [...] st Contact Info) Description 08/26/2025 9:00 AM STOCKROOM SUPERVISOR Office Visit [facility] Medical Group Multispecialty Care - [facility] [address] [facility] [place] [address] Francisco Levi, [address] [facility] [address] [place] [address] documented as of this encounter Goals Goal [...] Rule Out 09/11/2023 09/11/2023 09/11/2023 10:29 AM STOCKROOM SUPERVISOR COVID-19 Rule Out 03/18/2024 03/18/2024 03/18/2024 8:30 PM CDT COVID-19 Rule Out 05/27/2024 05/27/2024 05/27/2024 7:16 PM CDT Assessment Noted Time PHQ-9 Depression Total Score: 0 02/26/20 22 9:40 AM CDT documented as of this encounter Care Teams Prescription Eyeglass Maker Relationship Specialty [place] [address] [place] [address] PCP - General FAMILY PRACTICE 05/15/20 documented as of this encounter
--- OUTSIDE RECORDS SUMMARY | 2025-04-23 11:17 | XMS_ITS | Encounter Summary ---
Author Organization [facility] Address [address] [place] [address] Care Team Providers Care Warehouse Driver Name Role Phone Nestor Fletcher MD Primary Care Provider +1 [phone] Encounter Details Date Type Department Care Team (Late st Contact Info) Description 09/04/2023 B2B-Center Message Enc [facility] Medical Group Family & Internal Medicine [address] [address] Nestor Fletcher MD [address] [place] [address] Rajat Social History Tobacco Use Types [...] Assigned at Female 10/30/2019 8:35 AM ACCOUNT GROUP SUPERVISOR Legal Sex Female 10:55 PM CDT Gender Identity Female 10/30/2019 8:35 AM ACCOUNT GROUP SUPERVISOR Sexual Orientation Straight 10/30/2019 8: 35 AM ACCOUNT GROUP SUPERVISOR documented as of this encounter Functional [...] st Contact Info) Description 08/26/2025 9:00 AM ACCOUNT GROUP SUPERVISOR Office Visit [facility] Medical Group Multispecialty Care - [facility] [address] [place] [address] Francisco Levi, [address] [facility] [address] [place] [address] documented as of this encounter Goals Goal Patient Goal Type Associated Problems Recent Progress Patient-Stated? Author Health - patient able to perform ADLs independently Lifestyle No KoKareem encinas i RN documented as of this encounter Visit Diagnoses Not on filedocumented in this encounter Additional Health Concerns Infection Onset Date Last Indicated Resolved Time COVID-19 Rule Out 09/11/2023 09/11/2023 09/11/2023 10:29 AM ACCOUNT GROUP SUPERVISOR COVID-19 Rule Out 03/18/2024 03/18/2024 03/18/2024 8:30 PM CDT COVID-19 Rule Out 05/27/2024 05/27/2024 05/27/2024 7:16 PM CDT Assessment Noted Time PHQ-9 Depression Total Score: 0 02/26/20 22 9:40 AM CDT documented as of this encounter Care Teams Warehouse Driver Relationship Specialty [place] [address] [place] [address] PCP - General FAMILY PRACTICE 05/15/20 documented as of this encounter
--- OUTSIDE RECORDS SUMMARY | 2025-04-23 11:17 | XMS_ITS | Encounter Summary ---
Author Organization [facility] Address [address] [place] [address] Care Team Providers Care Glassware Selector Name Role Phone Nestor Fletcher MD Primary Care Provider [phone] Encounter Details Date Type Department Care Team (Late st Contact Info) Description 08/04/2021 Attracta Message Enc [facility] Medical Group Family & Internal Medicine [address] [address] Nestor Fletcher MD [address] [place] [address] Insurance Social History Tobacco Use Types [...] Sex Assigned at Female 10/30/2019 8:35 AM FUNERAL LIMOUSINE DRIVER Legal Sex Female 10:55 PM CDT Gender Identity Female 10/30/2019 8:35 AM FUNERAL LIMOUSINE DRIVER Sexual Orientation Straight 10/30/2019 8: 35 AM FUNERAL LIMOUSINE DRIVER COVID-19 Exposure Response Date Recorded In the last month, have you been in contact with someone who was confirmed or suspected to have Coronavirus / COVID-19? No / Unsure 08/05/2021 9:15 AM FUNERAL LIMOUSINE DRIVER documented as of this encounter Functional Status [...] 2:32 PM CST Ins has been updated. RAL LIMOUSINE DRIVER documented in this encounter Plan of Treatment Upcoming Encounters Date Type Department Care Team (Late st Contact Info) Description 08/26/2025 9:00 AM FUNERAL LIMOUSINE DRIVER Office Visit [facility] Medical Group Multispecialty Care - [address], [address] [place] [address] Francisco Levi DO [address] [facility] [address] [place] [address] documented as of this encounter Visit Diagnoses Not on filedocumented in this encounter Additional Health Concerns Infection Onset Date Last Indicated Resolved Time COVID-19 Rule Out 12/02/2021 12/02/2021 12/02/2021 4:28 PM CDT COVID-19 Rule Out 05/20/2023 05/20/2023 05/20/2023 6:44 PM CDT COVID-19 Rule Out 09/11/2023 09/11/2023 09/11/2023 10:29 AM FUNERAL LIMOUSINE DRIVER COVID-19 Rule Out 03/18/2024 03/18/2024 03/18/2024 8:30 PM CDT COVID-19 Rule Out 05/27/2024 05/27/2024 05/27/2024 7:16 PM CDT Assessment Noted Time PHQ-9 Depression Total Score: 0 03/30/20 21 11:05 AM CDT documented as of this encounter Care Teams Glassware Selector Relationship Specialty [place] [address] [place] [address] PCP - General FAMILY PRACTICE 05/15/20 documented as of this encounter
--- OUTSIDE RECORDS SUMMARY | 2025-04-23 11:17 | XMS_ITS | Encounter Summary ---
Author Organization [facility] Address [address] [place] [address] Care Team Providers Care On Call Pharmacy Technician Name Role Phone Nestor Fletcher MD Primary Care Provider [phone] Encounter Details Date Type Department Care Team (Late st Contact Info) Description 07/10/2023 Boracci Message Enc [facility] Medical Group Multispecialty Care - [facility] [address] [facility], [address] [place] [address] [place], [facility] Provider valium Social History Tobacco Use Types [...] Sex Assigned at Female 10/30/2019 8:35 AM ASSET PROTECTION PROFESSIONAL Legal Sex Female 10:55 PM CDT Gender Identity Female 10/30/2019 8:35 AM ASSET PROTECTION PROFESSIONAL Sexual Orientation Straight 10/30/2019 8: 35 AM ASSET PROTECTION PROFESSIONAL documented as of this encounter Functional Status [...] 12:00 PM Georgia Sofia RN Active * Calculated C-SSRS Risk Score (Lifetime/Recent) Answer Date of Assessment Author Status No Risk Indicated 07/12/2023 9:15 AM Marsha Singh RN Active * [place] Suicide Severity Rating Scale (Screener/Recent Self-Report) Question [...] st Contact Info) Description 08/26/2025 9:00 AM ASSET PROTECTION PROFESSIONAL Office Visit [facility] Medical Group Multispecialty Care - [facility] [address] [facility] [place] [address] Francisco Levi, DO [address] [place] [address] documented as of this encounter Goals Goal Patient Goal Type Associated Problems Recent Progress Patient-Stated? Author Health - patient able to perform ADLs independently Lifestyle No Vega hendrickson, Kareem Camacho RN documented as of this encounter Visit Diagnoses Not on filedocumented in this encounter Additional Health Concerns Infection Onset Date Last Indicated Resolved Time COVID-19 Rule Out 09/11/2023 09/11/2023 09/11/2023 10:29 AM ASSET PROTECTION PROFESSIONAL COVID-19 Rule Out 03/18/2024 03/18/2024 03/18/2024 8:30 PM CDT COVID-19 Rule Out 05/27/2024 05/27/2024 05/27/2024 7:16 PM CDT Assessment Noted Time PHQ-9 Depression Total Score: 0 02/26/20 9:40 AM CDT documented as of this encounter Care Teams On Call Pharmacy Technician Relationship Specialty [place] [address] [place] [address] PCP - General FAMILY PRACTICE 05/15/20 documented as of this encounter
--- OUTSIDE RECORDS SUMMARY | 2025-04-23 11:17 | XMS_ITS | Encounter Summary ---
Author Organization [facility] Address [address] [place] [address] Care Team Providers Care Contact Center Rep Name Role Phone Nestor Fletcher MD Primary Care Provider [phone] Encounter Details Date Type Department Care Team (Late st Contact Info) Description 03/23/[address] Message Enc [facility] Medical Group Family & Internal Medicine [address] [address] Nestor Fletcher MD [address] [place] [address] RE: Question Social History Tobacco Use [...] Sex Assigned at Female 10/30/2019 8:35 AM SET DESIGNER Legal Sex Female 10:55 PM CDT Gender Identity Female 10/30/2019 8:35 AM SET DESIGNER Sexual Orientation Straight 10/30/2019 8: 35 AM SET DESIGNER documented as of this encounter Functional [...] st Contact Info) Description 08/26/2025 9:00 AM SET DESIGNER Office Visit [facility] Medical Group Multispecialty Care - [facility] [address] [facility] [place] [address] Francisco Levi DO [address] [facility] [address] [place] [address] documented as of this encounter Visit Diagnoses Not on filedocumented in this encounter Additional Health Concerns Infection Onset Date Last Indicated Resolved Time COVID-19 Rule Out 12/02/2021 12/02/2021 12/02/2021 4:28 PM CDT COVID-19 Rule Out 05/20/2023 05/20/2023 05/20/2023 6:44 PM CDT COVID-19 Rule Out 09/11/2023 09/11/2023 09/11/2023 10:29 AM SET DESIGNER COVID-19 Rule Out 03/18/2024 03/18/2024 03/18/2024 8:30 PM CDT COVID-19 Rule Out 05/27/2024 05/27/2024 05/27/2024 7:16 PM CDT documented as of this encounter Care Teams Contact Center Rep Relationship Specialty [place] [address] [place] [address] PCP - General FAMILY PRACTICE 05/15/20 documented as of this encounter
--- OUTSIDE RECORDS SUMMARY | 2025-04-23 11:17 | XMS_ITS | Encounter Summary ---
Author Organization [facility] Address [address] [place] [address] Care Team Providers Care Surgical Nurse Name Role Phone Nestor Fletcher MD Primary Care Provider [phone] Encounter Details Date Type Department Care Team (Late st Contact Info) Description 05/22/2023 Empower2adaptt Message Enc [facility] Medical Group Multispecialty Care - [facility] [address] [facility], [address] [place] [address] Eusebio Ron MD 3 [place] [address] Steroid inj Social History Tobacco Use Types [...] Sex Assigned at Female 10/30/2019 8:35 AM POST HOLE DIGGING MACHINE OPERATOR Legal Sex Female 10:55 PM CDT Gender Identity Female 10/30/2019 8:35 AM POST HOLE DIGGING MACHINE OPERATOR Sexual Orientation Straight 10/30/2019 8: 35 AM POST HOLE DIGGING MACHINE OPERATOR documented as of this encounter [...] AM CINTHYAT Liudmila Chau RN Active * [place] Suicide Severity Rating Scale (Screener/Recent Self-Report) Question [...] st Contact Info) Description 08/26/2025 9:00 AM POST HOLE DIGGING MACHINE OPERATOR Office Visit [facility] Medical Group Multispecialty Care - [facility] [address] [facility] [address] [place] [address] Francisco Levi DO [address] [facility] [address] [place] [address] documented as of this encounter Goals Goal Patient Goal Type Associated Problems Recent Progress Patient-Stated? Author Health - patient able to perform ADLs independently Lifestyle No Vega john er, Kareem Camacho, RN documented as of this encounter Visit Diagnoses Not on filedocumented in this encounter Additional Health Concerns Infection Onset Date Last Indicated Resolved Time COVID-19 Rule Out 09/11/2023 09/11/2023 09/11/2023 10:29 AM POST HOLE DIGGING MACHINE OPERATOR COVID-19 Rule Out 03/18/2024 03/18/2024 03/18/2024 8:30 PM CDT COVID-19 Rule Out 05/27/2024 05/27/2024 05/27/2024 7:16 PM CDT Assessment Noted Time PHQ-9 Depression Total Score: 0 02/26/20 9:40 AM CDT documented as of this encounter Care Teams Surgical Nurse Relationship Specialty [place] [address] [place] [address] PCP - General FAMILY PRACTICE 05/15/20 documented as of this encounter
--- OUTSIDE RECORDS SUMMARY | 2025-04-23 11:17 | XMS_ITS | Encounter Summary ---
Author Organization [facility] Address [address] [place] [address] Care Team Providers Care Water Tester Name Role Phone Nestor Fletcher MD Primary Care Provider [phone] Encounter Details Date Type Department Care Team (Late st Contact Info) Description 02/26/2021 [employer] Message Enc [facility] Medical Group Family & Internal Medicine [address] [address] Nestor Fletcher MD [address] [place] [address] RE: Question Social History Tobacco Use [...] Assigned at Female 10/30/2019 8:35 AM ASSISTANT SITE MANAGER Legal Sex Female 10:55 PM CDT Gender Identity Female 10/30/2019 8:35 AM ASSISTANT SITE MANAGER Sexual Orientation Straight 10/30/2019 8: 35 AM ASSISTANT SITE MANAGER COVID-19 Exposure Response Date Recorded In [...] Care Team (Radha benson Contact Info) Description 08/26/2025 9:00 AM ASSISTANT SITE MANAGER Office Visit [facility] Medical Group Multispecialty Care - [facility] [address] [place] [address] LeviFrancisco culp [address] [facility] [address] [place] [address] documented as of this encounter Visit Diagnoses Not on filedocumented in this encounter Additional Health Concerns Infection Onset Date Last Indicated Resolved Time COVID-19 Rule Out 12/02/2021 12/02/2021 12/02/2021 4:28 PM CDT COVID-19 Rule Out 05/20/2023 05/20/2023 05/20/2023 6:44 PM CDT COVID-19 Rule Out 09/11/2023 09/11/2023 09/11/2023 10:29 AM ASSISTANT SITE MANAGER COVID-19 Rule Out 03/18/2024 03/18/2024 03/18/2024 8:30 PM CDT COVID-19 Rule Out 05/27/2024 05/27/2024 05/27/2024 7:16 PM CDT documented as of this encounter Care Teams Water Tester Relationship Specialty [place] [address] [place] [address] PCP - General FAMILY PRACTICE 05/15/20 documented as of this encounter
--- OUTSIDE RECORDS SUMMARY | 2025-04-23 11:17 | XMS_ITS | Encounter Summary ---
Author Organization [facility] Address [address] [place] [address] Care Team Providers Care Paste Mixer Liquid Name Role Phone Nestor Fletcher MD Primary Care Provider [phone] Encounter Details Date Type Department Care Team (Late st Contact Info) Description 03/07/2023 [employer] Message Enc [facility] Medical Group Family & Internal Medicine [address] [address] Nestor Fletcher MD [address] [place] [address] Sleep Social History Tobacco Use Types [...] Assigned at Female 10/30/2019 8:35 AM OFFICE SUPPORT CLERK Legal Sex Female 10:55 PM CDT Gender Identity Female 10/30/2019 8:35 AM OFFICE SUPPORT CLERK Sexual Orientation Straight 10/30/2019 8: 35 AM OFFICE SUPPORT CLERK COVID-19 Exposure Response Date Recorded In [...] st Contact Info) Description 08/26/2025 9:00 AM OFFICE SUPPORT CLERK Office Visit [facility] Medical Group Multispecialty Care - [facility] [address] [facility] [address] [place] [address] Francisco Levi DO [address] [facility] [address] [place] [address] documented as of this encounter Goals Goal [...] Out 09/11/2023 09/11/2023 09/11/2023 10:29 AM OFFICE SUPPORT CLERK COVID-19 Rule Out 03/18/2024 03/18/2024 03/18/2024 8:30 PM CDT COVID-19 Rule Out 05/27/2024 05/27/2024 05/27/2024 7:16 PM CDT Assessment Noted Time PHQ-9 Depression Total Score: 0 02/26/20 22 9:40 AM CDT documented as of this encounter Care Teams Paste Mixer Liquid Relationship Specialty [place] [address] [place] [address] PCP - General FAMILY PRACTICE 05/15/20 documented as of this encounter
--- OUTSIDE RECORDS SUMMARY | 2025-04-23 11:17 | XMS_ITS | Encounter Summary ---
Author Organization [facility] Address [address] [place] [address] Care Team Providers Care Machinist Job Setter Name Role Phone Nestor Fletcher MD Primary Care Provider [phone] Encounter Details Date Type Department Care Team (Late st Contact Info) Description 02/16/2023 [employer] ([employer]M) Message Enc [facility] Medical Group Foot & Ankle Specialists [facility] [address] [place] [address] Carlos A Ocasio, DPBrinda [address] [place] [address] A few questions Social History Tobacco [...] Sex Assigned at Female 10/30/2019 8:35 AM MED SURG NURSE Legal Sex Female 10:55 PM CDT Gender Identity Female 10/30/2019 8:35 AM MED SURG NURSE Sexual Orientation Straight 10/30/2019 8: 35 AM MED SURG NURSE COVID-19 Exposure Response Date Recorded In [...] st Contact Info) Description 08/26/2025 9:00 AM MED SURG NURSE Office Visit [facility] Medical Group Multispecialty Care - [facility] [address] [facility] [facility] [address] [place] [address] Francisco Levi DO [address] [facility] [address] [place] [address] documented as of this encounter Goals Goal Patient Goal Type Associated Problems Recent Progress Patient-Stated? Author Health - patient able to perform ADLs independently Lifestyle No Vega i er, Kareem Camacho, RN documented as of this encounter Visit Diagnoses Not on filedocumented in this encounter Additional Health Concerns Infection Onset Date Last Indicated Resolved Time COVID-19 Rule Out 05/20/2023 05/20/2023 05/20/2023 6:44 PM CDT COVID-19 Rule Out 09/11/2023 09/11/2023 09/11/2023 10:29 AM MED SURG NURSE COVID-19 Rule Out 03/18/2024 03/18/2024 03/18/2024 8:30 PM CDT COVID-19 Rule Out 05/27/2024 05/27/2024 05/27/2024 7:16 PM CDT Assessment Noted Time PHQ-9 Depression Total Score: 0 02/26/20 22 9:40 AM CDT documented as of this encounter Care Teams Machinist Job Setter Relationship Specialty [place] [address] [place] [address] PCP - General FAMILY PRACTICE 05/15/20 documented as of this encounter
--- OUTSIDE RECORDS SUMMARY | 2025-04-23 11:17 | XMS_ITS | Encounter Summary ---
Author Organization [facility] Address [address] [place] [address] Care Team Providers Care Bead Flipper Name Role Phone Nestor Fletcher MD Primary Care Provider [phone] Encounter Details Date Type Department Care Team (Late st Contact Info) Description 06/27/2023 Augment Message Enc [facility] Medical Group Family & Internal Medicine [address] [address] Nestor Fletcher MD [address] [place] [address] Question Social History Tobacco Use Types [...] Sex Assigned at Female 10/30/2019 8:35 AM GI TECHNICIAN Legal Sex Female 10:55 PM CDT Gender Identity Female 10/30/2019 8:35 AM GI TECHNICIAN Sexual Orientation Straight 10/30/2019 8: 35 AM GI TECHNICIAN documented as of this encounter Functional [...] st Contact Info) Description 08/26/2025 9:00 AM GI TECHNICIAN Office Visit [facility] Medical Group Multispecialty Care - [facility] [address] [facility] [address] [place] [phone] Francisco Levi, [address] [facility] [address] [place] [address] documented as of this encounter Goals Goal Patient Goal Type Associated Problems Recent Progress Patient-Stated? Author Health - patient able to perform ADLs independently Lifestyle No KoerKareem elliott i RN documented as of this encounter Visit Diagnoses Not on filedocumented in this encounter Additional Health Concerns Infection Onset Date Last Indicated Resolved Time COVID-19 Rule Out 09/11/2023 09/11/2023 09/11/2023 10:29 AM GI TECHNICIAN COVID-19 Rule Out 03/18/2024 03/18/2024 03/18/2024 8:30 PM CDT COVID-19 Rule Out 05/27/2024 05/27/2024 05/27/2024 7:16 PM CDT Assessment Noted Time PHQ-9 Depression Total Score: 0 02/26/20 22 9:40 AM CDT documented as of this encounter Care Teams Bead Flipper Relationship Specialty [place] [address] [place] [address] PCP - General FAMILY PRACTICE 05/15/20 documented as of this encounter
--- OUTSIDE RECORDS SUMMARY | 2025-04-23 11:17 | XMS_ITS | Encounter Summary ---
Author Organization [facility] Address [facility] [place] [address] Care Team Providers Care Data Communications Analyst Name Role Phone Nestor Fletcher MD Primary Care Provider [phone] Encounter Details Date Type Department Care Team (Late st Contact Info) Description 03/01/2023 MyChart Message Enc [facility] Medical Group - [facility] [address] [place], [place] [address] [facility] Provider Air Quality Message Social History [...] Sex Assigned at Female 10/30/2019 8:35 AM SOLVENT PROCESS EXTRACTOR OPERATOR Legal Sex Female 10:55 PM CDT Gender Identity Female 10/30/2019 8:35 AM SOLVENT PROCESS EXTRACTOR OPERATOR Sexual Orientation Straight 10/30/2019 8: 35 AM SOLVENT PROCESS EXTRACTOR OPERATOR COVID-19 Exposure Response Date Recorded In [...] st Contact Info) Description 08/26/2025 9:00 AM SOLVENT PROCESS EXTRACTOR OPERATOR Office Visit [facility] Medical Group Multispecialty Care - [facility] [address] [place] [address] Francisco Levi, [address] [place] [address] documented as of this encounter Goals Goal [...] Rule Out 09/11/2023 09/11/2023 09/11/2023 10:29 AM SOLVENT PROCESS EXTRACTOR OPERATOR COVID-19 Rule Out 03/18/2024 03/18/2024 03/18/2024 8:30 PM CDT COVID-19 Rule Out 05/27/2024 05/27/2024 05/27/2024 7:16 PM CDT Assessment Noted Time PHQ-9 Depression Total Score: 0 02/26/20 22 9:40 AM CDT documented as of this encounter Care Teams Data Communications Analyst Relationship Specialty [place] [address] [place] [address] PCP - General FAMILY PRACTICE 05/15/20 documented as of this encounter
--- OUTSIDE RECORDS SUMMARY | 2025-04-23 11:17 | XMS_ITS | Encounter Summary ---
Author Organization [facility] Address [address] [place] [address] Care Team Providers Care Mechanical Systems Designer Name Role Phone Nestor Fletcher MD Primary Care Provider [phone] Encounter Details Date Type Department Care Team (Late st Contact Info) Description 05/22/2023 Digital Vega Message Enc [facility] Medical Group Family & Internal Medicine [address] [address] Nestor Fletcher MD [address] [place] [address] Appointment Social History Tobacco Use Types [...] Sex Assigned at Female 10/30/2019 8:35 AM CUSTOMER RESOLUTION SPECIALIST Legal Sex Female 10:55 PM CDT Gender Identity Female 10/30/2019 8:35 AM CUSTOMER RESOLUTION SPECIALIST Sexual Orientation Straight 10/30/2019 8: 35 AM CUSTOMER RESOLUTION SPECIALIST documented as of this encounter Functional [...] AM CINTHYAT Liudmila Chau RN Active * [place] Suicide Severity Rating Scale (Screener/Recent Self-Report) Question [...] st Contact Info) Description 08/26/2025 9:00 AM CUSTOMER RESOLUTION SPECIALIST Office Visit [facility] Medical Group Multispecialty Care - [facility] [address] [place] [address] Gurmeet Francisco, [address] [place] [address] documented as of this encounter Goals Goal Patient Goal Type Associated Problems Recent Progress Patient-Stated? Author Health - patient able to perform ADLs independently Lifestyle No Vega i er, Kareem Camacho RN documented as of this encounter Visit Diagnoses Not on filedocumented in this encounter Additional Health Concerns Infection Onset Date Last Indicated Resolved Time COVID-19 Rule Out 09/11/2023 09/11/2023 09/11/2023 10:29 AM CUSTOMER RESOLUTION SPECIALIST COVID-19 Rule Out 03/18/2024 03/18/2024 03/18/2024 8:30 PM CDT COVID-19 Rule Out 05/27/2024 05/27/2024 05/27/2024 7:16 PM CDT Assessment Noted Time PHQ-9 Depression Total Score: 0 02/26/20 22 9:40 AM CDT documented as of this encounter Care Teams Mechanical Systems Designer Relationship Specialty [place] [address] [place] [address] PCP - General FAMILY PRACTICE 05/15/20 documented as of this encounter
--- OUTSIDE RECORDS SUMMARY | 2025-04-23 11:17 | XMS_ITS | Encounter Summary ---
Author Organization [facility] Address [address] [place] [address] Care Team Providers Care Dial Lathe Operator Name Role Phone Nestor Fletcher MD Primary Care Provider [phone] Encounter Details Date Type Department Care Team (Late st Contact Info) Description 01/06/2021 Pulsar Vascular Message [facility] [address] Cullen Sprague MD [address] [address] RE: Question Social History Tobacco [...] Sex Assigned at Female 10/30/2019 8:35 AM ELECTROMECHANICAL EQUIPMENT ASSEMBLER Legal Sex Female 10:55 PM CDT Gender Identity Female 10/30/2019 8:35 AM ELECTROMECHANICAL EQUIPMENT ASSEMBLER Sexual Orientation Straight 10/30/2019 8: 35 AM ELECTROMECHANICAL EQUIPMENT ASSEMBLER COVID-19 Exposure Response Date Recorded In [...] st Contact Info) Description 08/26/2025 9:00 AM ELECTROMECHANICAL EQUIPMENT ASSEMBLER Office Visit [facility] Medical Group Multispecialty Care - [address] [place] [address] Francisco Levi DO [address] [place] [address] documented as of this encounter Visit Diagnoses Not on filedocumented in this encounter Additional Health Concerns Infection Onset Date Last Indicated Resolved Time COVID-19 Rule Out 12/02/2021 12/02/2021 12/02/2021 4:28 PM CDT COVID-19 Rule Out 05/20/2023 05/20/2023 05/20/2023 6:44 PM CDT COVID-19 Rule Out 09/11/2023 09/11/2023 09/11/2023 10:29 AM ELECTROMECHANICAL EQUIPMENT ASSEMBLER COVID-19 Rule Out 03/18/2024 03/18/2024 03/18/2024 8:30 PM CDT COVID-19 Rule Out 05/27/2024 05/27/2024 05/27/2024 7:16 PM CDT documented as of this encounter Care Teams Dial Lathe Operator Relationship Specialty [place] [address] [place] [address] PCP - General FAMILY PRACTICE 05/15/20 documented as of this encounter
--- OUTSIDE RECORDS SUMMARY | 2025-04-23 11:17 | XMS_ITS | Encounter Summary ---
Author Organization [facility] Address [address] [place] [address] Care Team Providers Care Head Of Geography Name Role Phone Nestor Fletcher MD Primary Care Provider [phone] Encounter Details Date Type Department Care Team (Late st Contact Info) Description 03/30/2023 Sand Signt Message Enc [facility] Medical Group Family & Internal Medicine [address] [address] Nestor Fletcher MD [address] [place] [address] April appt Social History Tobacco Use [...] Sex Assigned at Female 10/30/2019 8:35 AM BAKERY HELPER Legal Sex Female 10:55 PM CDT Gender Identity Female 10/30/2019 8:35 AM BAKERY HELPER Sexual Orientation Straight 10/30/2019 8: 35 AM BAKERY HELPER documented as of this encounter Functional [...] PM CDT Charles Simpson RN Active * [place] Suicide Severity Rating Scale (Screener/Recent Self-Report) Question Answer Date of Assessment Author Status 1. Wish to be (Past 1 Month) No 04/01/2023 1:52 PM CINTHYAT Cullen Simpson RN Acti ve 2. Non-Specific Active Suicidal Thoughts (Past 1 Month) No 04/01/2023 1:52 PM Cullen Mg RN Acti ve 6. Suicidal Behavior (Lifetime) [...] st Contact Info) Description 08/26/2025 9:00 AM BAKERY HELPER Office Visit [facility] [address] [place] [address] Gurmeet Francisco, [address] [place] [address] documented as of this encounter Goals Goal [...] Rule Out 09/11/2023 09/11/2023 09/11/2023 10:29 AM BAKERY HELPER COVID-19 Rule Out 03/18/2024 03/18/2024 03/18/2024 8:30 PM CDT COVID-19 Rule Out 05/27/2024 05/27/2024 05/27/2024 7:16 PM CDT Assessment Noted Time PHQ-9 Depression Total Score: 0 02/26/20 22 9:40 AM CDT documented as of this encounter Care Teams Head Of Geography Relationship Specialty [place] [address] [place] [address] PCP - General FAMILY PRACTICE 05/15/20 documented as of this encounter
--- OUTSIDE RECORDS SUMMARY | 2025-04-23 11:17 | XMS_ITS | Encounter Summary ---
Author Organization [facility] Address [address] [place] [address] Care Team Providers Care Barrel Loader Name Role Phone Nestor Fletcher MD Primary Care Provider [phone] Encounter Details Date Type Department Care Team (Late st Contact Info) Description 01/30/2021 ChowNow Message Enc [facility] Medical Group Family & Internal Medicine [address] [address] Nestor Fletcher MD [address] [place] [address] RE: Question Social History Tobacco Use [...] Sex Assigned at Female 10/30/2019 8:35 AM DYE HOUSE WHEEL OPERATOR Legal Sex Female 10:55 PM CDT Gender Identity Female 10/30/2019 8:35 AM DYE HOUSE WHEEL OPERATOR Sexual Orientation Straight 10/30/2019 8: 35 AM DYE HOUSE WHEEL OPERATOR COVID-19 Exposure Response Date Recorded In [...] st Contact Info) Description 08/26/2025 9:00 AM DYE HOUSE WHEEL OPERATOR Office Visit [facility] Medical [facility] Multispecialty Care - [facility] [address] [place] [address] Francisco Levi DO [address] [place] [address] documented as of this encounter Visit Diagnoses Not on filedocumented in this encounter Additional Health Concerns Infection Onset Date Last Indicated Resolved Time COVID-19 Rule Out 12/02/2021 12/02/2021 12/02/2021 4:28 PM CDT COVID-19 Rule Out 05/20/2023 05/20/2023 05/20/2023 6:44 PM CDT COVID-19 Rule Out 09/11/2023 09/11/2023 09/11/2023 10:29 AM DYE HOUSE WHEEL OPERATOR COVID-19 Rule Out 03/18/2024 03/18/2024 03/18/2024 8:30 PM CDT COVID-19 Rule Out 05/27/2024 05/27/2024 05/27/2024 7:16 PM CDT documented as of this encounter Care Teams Barrel Loader Relationship Specialty [place] [address] [place] [address] PCP - General FAMILY PRACTICE 05/15/20 documented as of this encounter
--- OUTSIDE RECORDS SUMMARY | 2025-04-23 11:17 | XMS_ITS | Encounter Summary ---
Author Organization [facility] Address [address] [place] [address] Care Team Providers Care Warehouse Order Filler Name Role Phone Nestor Fletcher MD Primary Care Provider [phone] Encounter Details Date Type Department Care Team (Latest Contact Info) Description 05/25/2023 Hermes IQ Message Enc [facility] Medical Group Multispecialty Care - [facility] [address] [place] [address] [place] Provider Responding to last message Social [...] Sex Assigned at Female 10/30/2019 8:35 AM VICE ADMIRAL Legal Sex Female 10:55 PM CDT Gender Identity Female 10/30/2019 8:35 AM VICE ADMIRAL Sexual Orientation Straight 10/30/2019 8: 35 AM VICE ADMIRAL documented as of this encounter Functional Status [...] st Contact Info) Description 08/26/2025 9:00 AM VICE ADMIRAL Office Visit [facility] Medical Group Multispecialty Care - [facility] [address] [place] [phone] Francisco Levi, [address] [place] [address] documented as of this encounter Goals Goal Patient Goal Type Associated Problems Recent Progress Patient-Stated? Author Health - patient able to perform ADLs independently Lifestyle No Kareem Freeman i, RN documented as of this encounter Visit Diagnoses Not on filedocumented in this encounter Additional Health Concerns Infection Onset Date Last Indicated Resolved Time COVID-19 Rule Out 09/11/2023 09/11/202309/11/2023 10:29 AM VICE ADMIRAL COVID-19 Rule Out 03/18/2024 03/18/2024 03/18/2024 8:30 PM CDT COVID-19 Rule Out 05/27/2024 05/27/2024 05/27/2024 7:16 PM CDT Assessment Noted Time PHQ-9 Depression Total Score: 0 02/26/20 9:40 AM CDT documented as of this encounter Care Teams Warehouse Order Filler Relationship Specialty [place] [address] [place] [address] PCP - General FAMILY PRACTICE 05/15/20 documented as of this encounter
--- OUTSIDE RECORDS SUMMARY | 2025-04-23 11:17 | XMS_ITS | Encounter Summary ---
Author Organization [facility] Address [address] [place] [address] Care Team Providers Care Criminal Investigator Customs Name Role Phone Nestor Fletcher MD Primary Care Provider [phone] Encounter Details Date Type Department Care Team (Late st Contact Info) Description 04/26/2023 Circle Inct Message Enc [facility] Medical Group Multispecialty Care - [facility] [address] [place] [phone] Eusebio Ron MD [address] [place] [address] Appt Social History Tobacco Use Types Packs/Day [...] Sex Assigned at Female 10/30/2019 8:35 AM BARREL SCRAPER Legal Sex Female 10:55 PM CDT Gender Identity Female 10/30/2019 8:35 AM BARREL SCRAPER Sexual Orientation Straight 10/30/2019 8: 35 AM BARREL SCRAPER documented as of this encounter Functional Status [...] 8:42 AM Vanessa Ceja RN Active * [place] Suicide Severity Rating Scale (Screener/Recent Self-Report) Question [...] st Contact Info) Description 08/26/2025 9:00 AM BARREL SCRAPER Office Visit [facility] Medical Group Multispecialty Care - [facility] [address] [place] [address] Francisco Levi [address] [place] [address] documented as of this encounter Goals Goal [...] Rule Out 09/11/2023 09/11/2023 09/11/2023 10:29 AM BARREL SCRAPER COVID-19 Rule Out 03/18/2024 03/18/2024 03/18/2024 8:30 PM CDT COVID-19 Rule Out 05/27/2024 05/27/2024 05/27/2024 7:16 PM CDT Assessment Noted Time PHQ-9 Depression Total Score: 0 02/26/20 22 9:40 AM CDT documented as of this encounter Care Teams Criminal Investigator Customs Relationship Specialty [place] [address] [place] [address] PCP - General FAMILY PRACTICE 05/15/20 documented as of this encounter
--- OUTSIDE RECORDS SUMMARY | 2025-04-23 11:17 | XMS_ITS | Encounter Summary ---
Author Organization [facility] Address [address] [place] [address] Care Team Providers Care Washer Machine Name Role Phone Nestor Fletcher MD Primary Care Provider [phone] Encounter Details Date Type Department Care Team (Late st Contact Info) Description 04/11/2023 Oh My Glasses Message Enc [facility] Medical Group Family & Internal Medicine [address] [address] Nestor Fletcher MD [address] [place] [address] visit Social History Tobacco Use Types [...] Sex Assigned at Female 10/30/2019 8:35 AM LABORATORY SAMPLE CARRIER Legal Sex Female 10:55 PM CDT Gender Identity Female 10/30/2019 8:35 AM LABORATORY SAMPLE CARRIER Sexual Orientation Straight 10/30/2019 8: 35 AM LABORATORY SAMPLE CARRIER documented as of this encounter Functional Status [...] st Contact Info) Description 08/26/2025 9:00 AM LABORATORY SAMPLE CARRIER Office Visit [facility] Medical Group Multispecialty Care - [facility] [address] [place] [address] Francisco Levi, [address] [place] [address] documented as of this encounter Goals Goal [...] Rule Out 09/11/2023 09/11/2023 09/11/2023 10:29 AM LABORATORY SAMPLE CARRIER COVID-19 Rule Out 03/18/2024 03/18/2024 03/18/2024 8:30 PM CDT COVID-19 Rule Out 05/27/2024 05/27/2024 05/27/2024 7:16 PM CDT Assessment Noted Time PHQ-9 Depression Total Score: 0 02/26/20 22 9:40 AM CDT documented as of this encounter Care Teams Washer Machine Relationship Specialty [place] [address] [place] [address] PCP - General FAMILY PRACTICE 05/15/20 documented as of this encounter
--- OUTSIDE RECORDS SUMMARY | 2025-04-23 11:17 | XMS_ITS | Encounter Summary ---
Author Organization [facility] Address [address] [place] [address] Care Team Providers Care Content Editor Name Role Phone Nestor Fletcher MD Primary Care Provider [phone] Encounter Details Date Type Department Care Team (Late st Contact Info) Description 01/05/2021 [place] Message Enc [facility] Medical Group Family & Internal Medicine [address] [address] Nestor Fletcher MD [address] [place] [address] RE: Question Social History Tobacco Use [...] Assigned at Female 10/30/2019 8:35 AM SENIOR WEB SERVICES DEVELOPER Legal Sex Female 10:55 PM CDT Gender Identity Female 10/30/2019 8:35 AM SENIOR WEB SERVICES DEVELOPER Sexual Orientation Straight 10/30/2019 8: 35 AM SENIOR WEB SERVICES DEVELOPER COVID-19 Exposure Response Date Recorded In [...] st Contact Info) Description 08/26/2025 9:00 AM SENIOR WEB SERVICES DEVELOPER Office Visit [facility] Medical [facility] [address] [place] [address] Francisco Levi, [address] [place] [address] documented as of this encounter Visit Diagnoses Not on filedocumented in this encounter Additional Health Concerns Infection Onset Date Last Indicated Resolved Time COVID-19 Rule Out 01/05/2021 01/05/2021 01/05/2021 5:26 PM CDT COVID-19 Rule Out 12/02/2021 12/02/2021 12/02/2021 4:28 PM CDT COVID-19 Rule Out 05/20/2023 05/20/2023 05/20/2023 6:44 PM CDT COVID-19 Rule Out 09/11/2023 09/11/2023 09/11/2023 10:29 AM SENIOR WEB SERVICES DEVELOPER COVID-19 Rule Out 03/18/2024 03/18/2024 03/18/2024 8:30 PM CDT COVID-19 Rule Out 05/27/2024 05/27/2024 05/27/2024 7:16 PM CDT documented as of this encounter Care Teams Content Editor Relationship Specialty [place] [address] [place] [address] PCP - General FAMILY PRACTICE 05/15/20 documented as of this encounter
--- OUTSIDE RECORDS SUMMARY | 2025-04-23 11:17 | XMS_ITS | Encounter Summary ---
Author Organization [facility] Address [address] [place] [address] Care Team Providers Care Lehr Tender Name Role Phone Nestro Fletcher MD Primary Care Provider [phone] Encounter Details Date Type Department Care Team (Late st Contact Info) Description 06/07/2023 PetSitnStay Message [facility] [address] Cullen Sprague MD [address] [address] Ekg Social History Tobacco Use [...] at Female 10/30/2019 8:35 AM ELECTROMEDICAL EQUIPMENT REPAIRER Legal Sex Female 10:55 PM CDT Gender Identity Female 10/30/2019 8:35 AM ELECTROMEDICAL EQUIPMENT REPAIRER Sexual Orientation Straight 10/30/2019 8: 35 AM ELECTROMEDICAL EQUIPMENT REPAIRER documented as of this encounter Functional [...] st Contact Info) Description 08/26/2025 9:00 AM ELECTROMEDICAL EQUIPMENT REPAIRER Office Visit [facility] Medical Group Multispecialty Care - [address] [place] [address] Francisco Leiv DO [address] [place] [address] documented as of this encounter Goals Goal [...] 09/11/2023 09/11/2023 09/11/2023 10:29 AM ELECTROMEDICAL EQUIPMENT REPAIRER COVID-19 Rule Out 03/18/2024 03/18/2024 03/18/2024 8:30 PM CDT COVID-19 Rule Out 05/27/2024 05/27/2024 05/27/2024 7:16 PM CDT Assessment Noted Time PHQ-9 Depression Total Score: 0 02/26/20 22 9:40 AM CDT documented as of this encounter Care Teams Lehr Tender Relationship Specialty [place] [address] [place] [address] PCP - General FAMILY PRACTICE 05/15/20 documented as of this encounter
--- OUTSIDE RECORDS SUMMARY | 2025-04-23 11:17 | XMS_ITS | Encounter Summary ---
Author Organization [facility] Address [address] [place] [address] Care Team Providers Care Brass Roller Name Role Phone Nestor Fletcher MD Primary Care Provider [phone] [phone] Encounter Details Date Type Department Care Team (Late st Contact Info) Description 05/27/2023 MicksGarage Message Enc [facility] Medical Group Family & Internal Medicine [address] [address] Nestor Fletcher MD [address] [place] [address] Nite time urination Social History Tobacco [...] Assigned at Female 10/30/2019 8:35 AM TANK INSPECTOR Legal Sex Female 10:55 PM CDT Gender Identity Female 10/30/2019 8:35 AM TANK INSPECTOR Sexual Orientation Straight 10/30/2019 8: 35 AM TANK INSPECTOR documented as of this encounter Functional Status [...] st Contact Info) Description 08/26/2025 9:00 AM TANK INSPECTOR Office Visit [facility] Medical Group Multispecialty Care - [facility] [address] [place] [address] Francisco Levi, [address] [place] [address] documented as of this encounter Goals Goal Patient Goal Type Associated Problems Recent Progress Patient-Stated? Author Health - patient able to perform ADLs independently Lifestyle No Vega hendrickson, Kareem Camacho RN documented as of this encounter Visit Diagnoses Not on filedocumented in this encounter Additional Health Concerns Infection Onset Date Last Indicated Resolved Time COVID-19 Rule Out 09/11/2023 09/11/2023 09/11/2023 10:29 AM TANK INSPECTOR COVID-19 Rule Out 03/18/2024 03/18/2024 03/18/2024 8:30 PM CDT COVID-19 Rule Out 05/27/2024 05/27/2024 05/27/2024 7:16 PM CDT Assessment Noted Time PHQ-9 Depression Total Score: 0 02/26/20 22 9:40 AM CDT documented as of this encounter Care Teams Brass Roller Relationship Specialty [place] [address] [place] [address] PCP - General FAMILY PRACTICE 05/15/20 documented as of this encounter
--- OUTSIDE RECORDS SUMMARY | 2025-04-23 11:17 | XMS_ITS | Encounter Summary ---
Author Organization [facility] Address [address] [place] [address] Care Team Providers Care Power Plant Electrician Name Role Phone Nestor Fletcher MD Primary Care Provider [phone] Encounter Details Date Type Department Care Team (Late st Contact Info) Description 12/30/2020 Meetappt Message Enc [facility] Medical Group Multispecialty Care - [facility] [address] [place] [address] Francisco Levi DO [address] [place] [address] RE: Question Social History Tobacco Use Types [...] Assigned at Female 10/30/2019 8:35 AM SPEEDER FRAME TENDER Legal Sex Female 10:55 PM CDT Gender Identity Female 10/30/2019 8:35 AM SPEEDER FRAME TENDER Sexual Orientation Straight 10/30/2019 8: 35 AM SPEEDER FRAME TENDER COVID-19 Exposure Response Date Recorded In [...] st Contact Info) Description 08/26/2025 9:00 AM SPEEDER FRAME TENDER Office Visit [facility] Medical Group Multispecialty Care - [facility] [address] [place] [address] Francisco Levi, [address] [place] [address] documented as of this encounter Visit Diagnoses Not on filedocumented in this encounter Additional Health Concerns Infection Onset Date Last Indicated Resolved Time COVID-19 Rule Out 01/05/2021 01/05/2021 01/05/2021 5:26 PM CDT COVID-19 Rule Out 12/02/2021 12/02/2021 12/02/2021 4:28 PM CDT COVID-19 Rule Out 05/20/2023 05/20/2023 05/20/2023 6:44 PM CDT COVID-19 Rule Out 09/11/2023 09/11/2023 09/11/2023 10:29 AM SPEEDER FRAME TENDER COVID-19 Rule Out 03/18/2024 03/18/2024 03/18/2024 8:30 PM CDT COVID-19 Rule Out 05/27/2024 05/27/2024 05/27/2024 7:16 PM CDT documented as of this encounter Care Teams Power Plant Electrician Relationship Specialty [place] [address] [place] [address] PCP - General FAMILY PRACTICE 05/15/20 documented as of this encounter
--- OUTSIDE RECORDS SUMMARY | 2025-04-23 11:17 | XMS_ITS | Encounter Summary ---
Author Organization [facility] Address [address] [place] [address] Care Team Providers Care Nurse Case Management Name Role Phone Nestor Fletcher MD Primary Care Provider +1 [phone] Encounter Details Date Type Department Care Team (Late st Contact Info) Description 07/09/[address] [facility] Multispecialty Care - [facility] [address] [facility], [address] [place] [phone] Eusebio Ron MD 3 [place] [address] Myelogram Social History Tobacco Use Types Packs/Day [...] Assigned at Female 10/30/2019 8:35 AM SENIOR FIRMWARE ENGINEER Legal Sex Female 10:55 PM CDT Gender Identity Female 10/30/2019 8:35 AM SENIOR FIRMWARE ENGINEER Sexual Orientation Straight 10/30/2019 8: 35 AM SENIOR FIRMWARE ENGINEER documented as of this encounter Functional [...] 9:15 AM Marsha Singh RN Active * [place] Suicide Severity Rating Scale (Screener/Recent Self-Report) Question [...] like it was Valium 10 mg OR FIRMWARE ENGINEER * Varsha Almonte MA - 07/10/2023 7:46 AM CST Forwarding to AA OR FIRMWARE ENGINEER documented in this encounter Plan of Treatment Upcoming Encounters Date Type Department Care Team (Late st Contact Info) Description 08/26/2025 9:00 AM SENIOR FIRMWARE ENGINEER Office Visit [facility] Mult[facility]pecialty Care - [facility] [address] [place] [address] Francisco Levi DO [address] [place] [address] documented as of this encounter Goals Goal Patient Goal Type Associated Problems Recent Progress Patient-Stated? Author Health - patient able to perform ADLs independently Lifestyle No Vega hendrickson, Kareem Camacho RN documented as of this encounter Visit Diagnoses Not on filedocumented in this encounter Additional Health Concerns Infection Onset Date Last Indicated Resolved Time COVID-19 Rule Out 09/11/2023 09/11/2023 09/11/2023 10:29 AM SENIOR FIRMWARE ENGINEER COVID-19 Rule Out 03/18/2024 03/18/2024 03/18/2024 8:30 PM CDT COVID-19 Rule Out 05/27/2024 05/27/2024 05/27/2024 7:16 PM CDT Assessment Noted Time PHQ-9 Depression Total Score: 0 02/26/20 9:40 AM CDT documented as of this encounter Care Teams Nurse Case Management Relationship Specialty [place] [address] [place] [address] PCP - General FAMILY PRACTICE 05/15/20 documented as of this encounter
--- OUTSIDE RECORDS SUMMARY | 2025-04-23 11:17 | XMS_ITS | Encounter Summary ---
Author Organization [facility] Address [address] [place] [address] Care Team Providers Care System Dispatcher Name Role Phone Nestor Fletcher MD Primary Care Provider [phone] Encounter Details Date Type Department Care Team (Late st Contact Info) Description 03/06/2023 Jaschat Message Enc [facility] Medical [facility] Multispecialty Care - [facility] [address] [facility], [address] [place] [phone] Eusebio Ron MD 3 [place] [address] Injections Social History Tobacco Use Types Packs/Day [...] Sex Assigned at Female 10/30/2019 8:35 AM BOUFFANT CURTAIN MACHINE TENDER Legal Sex Female 10:55 PM CDT Gender Identity Female 10/30/2019 8:35 AM BOUFFANT CURTAIN MACHINE TENDER Sexual Orientation Straight 10/30/2019 8: 35 AM BOUFFANT CURTAIN MACHINE TENDER COVID-19 Exposure Response Date Recorded [...] st Contact Info) Description 08/26/2025 9:00 AM BOUFFANT CURTAIN MACHINE TENDER Office Visit [facility] Medical [facility] Mult[facility]pecialty Care - [facility] [address] [facility] [place] [address] Francisco Levi, [address] [facility] [place] [address] documented as of this encounter Goals Goal [...] Rule Out 09/11/2023 09/11/2023 09/11/2023 10:29 AM BOUFFANT CURTAIN MACHINE TENDER COVID-19 Rule Out 03/18/2024 03/18/2024 03/18/2024 8:30 PM CDT COVID-19 Rule Out 05/27/2024 05/27/2024 05/27/2024 7:16 PM CDT Assessment Noted Time PHQ-9 Depression Total Score: 0 02/26/20 22 9:40 AM CDT documented as of this encounter Care Teams System Dispatcher Relationship Specialty [place] [address] [place] [address] PCP - General FAMILY PRACTICE 05/15/20 documented as of this encounter
--- OUTSIDE RECORDS SUMMARY | 2025-04-23 11:17 | XMS_ITS | Encounter Summary ---
Author Organization [facility] Address [address] [place] [address] Care Team Providers Care Supervisor Dry Paste Name Role Phone Nestor Fletcher MD Primary Care Provider [phone] Encounter Details Date Type Department Care Team (Late st Contact Info) Description 05/17/2023 Wengo Message Enc [facility] Medical Group Family & Internal Medicine [address] [address] Nestor Fletcher MD [address] [place] [address] Facial flushing Social History Tobacco Use [...] Sex Assigned at Female 10/30/2019 8:35 AM INSIDE PHONE SALES Legal Sex Female 10:55 PM CDT Gender Identity Female 10/30/2019 8:35 AM INSIDE PHONE SALES Sexual Orientation Straight 10/30/2019 8: 35 AM INSIDE PHONE SALES documented as of this encounter Functional Status [...] Status No Risk Indicated 05/20/2023 5:36 PM Joshua Jesus RN Active * [place] Suicide Severity Rating Scale (Screener/Recent Self-Report) Question Answer Date of Assessment Author Status 1. Wish to be (Past 1 Month) No 05/20/2023 5:36 PM Sparkle Jesus RN Active 2. Non-Specific Active Suicidal Thoughts (Past 1 Month) No 05/20/2023 5:36 PM Sparkle Jesus RN Active 6. Suicidal Behavior (Lifetime) No 05/20/2023 5:36 PM Sparkle Jesus RN Active documented as of this encounter Mental Status * Because of a physical, mental, or emotional condition, do you have serious difficulty concentrating, remembering, or making decisions? Answer Entry Date Author Status No 06/06/2022 12:00 PM Georgia Sofia RN Active documented in this encounter Plan of Treatment Upcoming Encounters Date Type Department Care Team (Late st Contact Info) Description 08/26/2025 9:00 AM INSIDE PHONE SALES Office Visit [facility] [address] [place] [address] LeviFrancisco culp, [address] [facility] [address] [place] [address] documented as of this encounter Goals Goal [...] Rule Out 09/11/2023 09/11/2023 09/11/2023 10:29 AM INSIDE PHONE SALES COVID-19 Rule Out 03/18/2024 03/18/2024 03/18/2024 8:30 PM CDT COVID-19 Rule Out 05/27/2024 05/27/2024 05/27/2024 7:16 PM CDT Assessment Noted Time PHQ-9 Depression Total Score: 0 02/26/20 22 9:40 AM CDT documented as of this encounter Care Teams Supervisor Dry Paste Relationship Specialty [place] [address] [place] [address] PCP - General FAMILY PRACTICE 05/15/20 documented as of this encounter
--- OUTSIDE RECORDS SUMMARY | 2025-04-23 11:17 | XMS_ITS | Encounter Summary ---
Author Organization [facility] Address [address] [place] [address] Care Team Providers Care Byproducts Supervisor Name Role Phone Nestor Fletcher MD Primary Care Provider [phone] Encounter Details Date Type Department Care Team (Late st Contact Info) Description 01/28/2021 Zola Books Message Enc [facility] Medical Group Family & Internal Medicine [address] [address] Nestor Fletcher MD [address] [place] [address] RE: Follow Up/Update Social History Tobacco [...] Sex Assigned at Female 10/30/2019 8:35 AM TERRITORY ACCOUNT REPRESENTATIVE Legal Sex Female 10:55 PM CDT Gender Identity Female 10/30/2019 8:35 AM TERRITORY ACCOUNT REPRESENTATIVE Sexual Orientation Straight 10/30/2019 8: 35 AM TERRITORY ACCOUNT REPRESENTATIVE COVID-19 Exposure Response Date Recorded In [...] st Contact Info) Description 08/26/2025 9:00 AM TERRITORY ACCOUNT REPRESENTATIVE Office Visit [facility] Medical Group Multispecialty Care - [facility] [address] [place] [address] Francisco Levi, [address] [facility] [address] [place] [address] documented as of this encounter Visit Diagnoses Not on filedocumented in this encounter Additional Health Concerns Infection Onset Date Last Indicated Resolved Time COVID-19 Rule Out 12/02/2021 12/02/2021 12/02/2021 4:28 PM CDT COVID-19 Rule Out 05/20/2023 05/20/2023 05/20/2023 6:44 PM CDT COVID-19 Rule Out 09/11/2023 09/11/2023 09/11/2023 10:29 AM TERRITORY ACCOUNT REPRESENTATIVE COVID-19 Rule Out 03/18/2024 03/18/2024 03/18/2024 8:30 PM CDT COVID-19 Rule Out 05/27/2024 05/27/2024 05/27/2024 7:16 PM CDT documented as of this encounter Care Teams Byproducts Supervisor Relationship Specialty [place] [address] [place] [address] PCP - General FAMILY PRACTICE 05/15/20 documented as of this encounter
--- OUTSIDE RECORDS SUMMARY | 2025-04-23 11:17 | XMS_ITS | Encounter Summary ---
Author Organization [facility] Address [address] [place] [address] Care Team Providers Care Inspector Timers Name Role Phone Nestor Fletcher MD Primary Care Provider [phone] Encounter Details Date Type Department Care Team (Late st Contact Info) Description 04/21/2023 Voyando Message Enc [facility] Medical Group Family & Internal Medicine [address] [address] Nestor Fletcher MD [address] [place] [address] Hips Social History Tobacco Use Types [...] Sex Assigned at Female 10/30/2019 8:35 AM FUNDRAISING CONSULTANT Legal Sex Female 10:55 PM CDT Gender Identity Female 10/30/2019 8:35 AM FUNDRAISING CONSULTANT Sexual Orientation Straight 10/30/2019 8: 35 AM FUNDRAISING CONSULTANT documented as of this encounter Functional Status [...] st Contact Info) Description 08/26/2025 9:00 AM FUNDRAISING CONSULTANT Office Visit [facility] Medical Group Multispecialty Care - [facility] [address] [place] [address] Francisco Levi, [address] [place] [address] documented as of this encounter Goals Goal [...] Rule Out 09/11/2023 09/11/2023 09/11/2023 10:29 AM FUNDRAISING CONSULTANT COVID-19 Rule Out 03/18/2024 03/18/2024 03/18/2024 8:30 PM CDT COVID-19 Rule Out 05/27/2024 05/27/2024 05/27/2024 7:16 PM CDT Assessment Noted Time PHQ-9 Depression Total Score: 0 02/26/20 9:40 AM CDT documented as of this encounter Care Teams Inspector Timers Relationship Specialty [place] [address] [place] [address] PCP - General FAMILY PRACTICE 05/15/20 documented as of this encounter
--- OUTSIDE RECORDS SUMMARY | 2025-04-23 11:18 | XMS_ITS | Encounter Summary ---
Author Organization [facility] Address [address] [place] [address] Care Team Providers Care Brick Offbearer Name Role Phone Nestor Fletcher MD Primary Care Provider [phone] Encounter Details Date Type Department Care Team (Late st Contact Info) Description 09/28/2023 Owingot Message Enc [facility] Medical Group Multispecialty Care - [facility] [address] [facility], [address] [place] [phone] Eusebio Ron MD 3 [place] [address] Fall Social History Tobacco Use Types Packs/Day [...] Sex Assigned at Female 10/30/2019 8:35 AM MARKET RESEARCH LEAD Legal Sex Female 10:55 PM CDT Gender Identity Female 10/30/2019 8:35 AM MARKET RESEARCH LEAD Sexual Orientation Straight 10/30/2019 8: 35 AM MARKET RESEARCH LEAD documented as of this encounter Functional Status [...] st Contact Info) Description 08/26/2025 9:00 AM MARKET RESEARCH LEAD Office Visit [facility] Medical Group Multispecialty Care - [facility] [address] [place] [address] Francisco Levi DO [address] [facility] [address] [place] [address] documented as of this encounter Goals Goal [...] documented as of this encounter Care Teams Brick Offbearer Relationship Specialty [place] [address] [place] [address] PCP - General FAMILY PRACTICE 05/15/20 documented as of this encounter
--- OUTSIDE RECORDS SUMMARY | 2025-04-23 11:18 | XMS_ITS | Encounter Summary ---
Author Organization [facility] Address [address] [place] [address] Care Team Providers Care Machine Stuffer Name Role Phone Nestor Fletcher MD Primary Care Provider [phone] Encounter Details Date Type Department Care Team (Late st Contact Info) Description 04/26/2021 Conscious Box Message Enc [facility] Medical Group Family & Internal Medicine [address] [address] Nestor Fletcher MD [address] [place] [address] RE: Question Social History Tobacco Use [...] Sex Assigned at Female 10/30/2019 8:35 AM MATERIALS MANAGEMENT SUPERVISOR Legal Sex Female 10:55 PM CDT Gender Identity Female 10/30/2019 8:35 AM MATERIALS MANAGEMENT SUPERVISOR Sexual Orientation Straight 10/30/2019 8: 35 AM MATERIALS MANAGEMENT SUPERVISOR COVID-19 Exposure Response Date Recorded In [...] st Contact Info) Description 08/26/2025 9:00 AM MATERIALS MANAGEMENT SUPERVISOR Office Visit [facility] Medical Group Multispecialty Care - [facility] [address] [place] [address] Francisco Levi, [address] [facility] [address] [place] [address] documented as of this encounter Visit Diagnoses Not on filedocumented in this encounter Additional Health Concerns Infection Onset Date Last Indicated Resolved Time COVID-19 Rule Out 12/02/2021 12/02/2021 12/02/2021 4:28 PM CDT COVID-19 Rule Out 05/20/2023 05/20/2023 05/20/2023 6:44 PM CDT COVID-19 Rule Out 09/11/2023 09/11/2023 09/11/2023 10:29 AM MATERIALS MANAGEMENT SUPERVISOR COVID-19 Rule Out 03/18/2024 03/18/2024 03/18/2024 8:30 PM CDT COVID-19 Rule Out 05/27/2024 05/27/2024 05/27/2024 7:16 PM CDT Assessment Noted Time PHQ-9 Depression Total Score: 0 03/30/20 21 11:05 AM CDT documented as of this encounter Care Teams Machine Stuffer Relationship Specialty [place] [address] [place] [address] PCP - General FAMILY PRACTICE 05/15/20 documented as of this encounter
--- OUTSIDE RECORDS SUMMARY | 2025-04-23 11:18 | XMS_ITS | Encounter Summary ---
Author Organization [facility] Address [address] [place] [address] Care Team Providers Care Athletic Team Physician Name Role Phone Nestor Fletcher MD Primary Care Provider [phone] Encounter Details Date Type Department Care Team (Late st Contact Info) Description 06/08/2021 NetSanity Message [facility] [address] Cullen Sprague MD [address] [address] Question Social History Tobacco Use [...] Sex Assigned at Female 10/30/2019 8:35 AM COPY CUTTER Legal Sex Female 10:55 PM CDT Gender Identity Female 10/30/2019 8:35 AM COPY CUTTER Sexual Orientation Straight 10/30/2019 8: 35 AM COPY CUTTER COVID-19 Exposure Response Date Recorded In the [...] st Contact Info) Description 08/26/2025 9:00 AM COPY CUTTER Office Visit [facility] Medical Group Multispecialty Care - [facility] [address] [place] [address] Francisco Levi DO [address] [facility] [address] [place] [address] documented as of this encounter Visit Diagnoses Not on filedocumented in this encounter Additional Health Concerns Infection Onset Date Last Indicated Resolved Time COVID-19 Rule Out 12/02/2021 12/02/2021 12/02/2021 4:28 PM CDT COVID-19 Rule Out 05/20/2023 05/20/2023 05/20/2023 6:44 PM CDT COVID-19 Rule Out 09/11/2023 09/11/2023 09/11/2023 10:29 AM COPY CUTTER COVID-19 Rule Out 03/18/2024 03/18/2024 03/18/2024 8:30 PM CDT COVID-19 Rule Out 05/27/2024 05/27/2024 05/27/2024 7:16 PM CDT Assessment Noted Time PHQ-9 Depression Total Score: 0 03/30/20 21 11:05 AM CDT documented as of this encounter Care Teams Athletic Team Physician Relationship Specialty [place] [address] [place] [address] PCP - General FAMILY PRACTICE 05/15/20 documented as of this encounter
--- OUTSIDE RECORDS SUMMARY | 2025-04-23 11:18 | XMS_ITS | Encounter Summary ---
Author Organization [facility] Address [address] [place] [address] Care Team Providers Care Die Machine Operator Name Role Phone Nestor Fletcher MD Primary Care Provider [phone] Encounter Details Date Type Department Care Team (Late st Contact Info) Description 06/04/2021 Rewalon Message Enc [facility] Medical Group Family & Internal Medicine [address] [address] Nestor Fletcher MD [address] [place] [address] RE: Follow Up/Update Social History Tobacco [...] Sex Assigned at Female 10/30/2019 8:35 AM INVESTOR Legal Sex Female 10:55 PM CDT Gender Identity Female 10/30/2019 8:35 AM INVESTOR Sexual Orientation Straight 10/30/2019 8: 35 AM INVESTOR COVID-19 Exposure Response Date Recorded In the [...] st Contact Info) Description 08/26/2025 9:00 AM INVESTOR Office Visit [facility] Medical Group Multispecialty Care - [facility] [address] [facility] [place] [address] Francisco Levi, [address] [facility] [address] [place] [address] documented as of this encounter Visit Diagnoses Not on filedocumented in this encounter Additional Health Concerns Infection Onset Date Last Indicated Resolved Time COVID-19 Rule Out 12/02/2021 12/02/2021 12/02/2021 4:28 PM CDT COVID-19 Rule Out 05/20/2023 05/20/2023 05/20/2023 6:44 PM CDT COVID-19 Rule Out 09/11/2023 09/11/2023 09/11/2023 10:29 AM INVESTOR COVID-19 Rule Out 03/18/2024 03/18/2024 03/18/2024 8:30 PM CDT COVID-19 Rule Out 05/27/2024 05/27/2024 05/27/2024 7:16 PM CDT Assessment Noted Time PHQ-9 Depression Total Score: 0 03/30/20 21 11:05 AM CDT documented as of this encounter Care Teams Die Machine Operator Relationship Specialty [place] [address] [place] [address] PCP - General FAMILY PRACTICE 05/15/20 documented as of this encounter
--- OUTSIDE RECORDS SUMMARY | 2025-04-23 11:18 | XMS_ITS | Encounter Summary ---
Author Organization [facility] Address [address] [place] [address] Care Team Providers Care Assembler Engine Name Role Phone Nestor Fletcher MD Primary Care Provider [phone] [phone] Encounter Details Date Type Department Care Team (Late st Contact Info) Description 07/06/2021 Ecociclus Message Enc [facility] Medical Group Family & Internal Medicine [address] [address] Nestor Fletcher MD [address] [place] [address] RE: Question Social History Tobacco Use [...] Sex Assigned at Female 10/30/2019 8:35 AM PARTITION ASSEMBLY MACHINE OPERATOR Legal Sex Female 10:55 PM CDT Gender Identity Female 10/30/2019 8:35 AM PARTITION ASSEMBLY MACHINE OPERATOR Sexual Orientation Straight 10/30/2019 8: 35 AM PARTITION ASSEMBLY MACHINE OPERATOR COVID-19 Exposure Response Date Recorded [...] st Contact Info) Description 08/26/2025 9:00 AM PARTITION ASSEMBLY MACHINE OPERATOR Office Visit [facility] Medical Group Multispecialty Care - [facility] [address] [facility] [place] [address] Francisco Levi DO [address] [facility] [address] [place] [address] documented as of this encounter Visit Diagnoses Not on filedocumented in this encounter Additional Health Concerns Infection Onset Date Last Indicated Resolved Time COVID-19 Rule Out 12/02/2021 12/02/2021 12/02/2021 4:28 PM CDT COVID-19 Rule Out 05/20/2023 05/20/2023 05/20/2023 6:44 PM CDT COVID-19 Rule Out 09/11/2023 09/11/2023 09/11/2023 10:29 AM PARTITION ASSEMBLY MACHINE OPERATOR COVID-19 Rule Out 03/18/2024 03/18/2024 03/18/2024 8:30 PM CDT COVID-19 Rule Out 05/27/2024 05/27/2024 05/27/2024 7:16 PM CDT Assessment Noted Time PHQ-9 Depression Total Score: 0 03/30/20 21 11:05 AM CDT documented as of this encounter Care Teams Assembler Engine Relationship Specialty [place] [address] [place] [address] PCP - General FAMILY PRACTICE 05/15/20 documented as of this encounter
--- OUTSIDE RECORDS SUMMARY | 2025-04-23 11:18 | XMS_ITS | Encounter Summary ---
Author Organization [facility] Address [address] [place] [address] Care Team Providers Care Plate Preparer Name Role Phone Nestor Fletcher MD Primary Care Provider [phone] Encounter Details Date Type Department Care Team (Late st Contact Info) Description 09/02/2021 Nexus eWater Message Enc [facility] Medical Group Family & Internal Medicine [address] [address] Nestor Fletcher MD [address] [place] [address] MRI Social History Tobacco Use Types [...] Assigned at Female 10/30/2019 8:35 AM PRINCIPAL ACCOUNT CLERK Legal Sex Female 10:55 PM CDT Gender Identity Female 10/30/2019 8:35 AM PRINCIPAL ACCOUNT CLERK Sexual Orientation Straight 10/30/2019 8: 35 AM PRINCIPAL ACCOUNT CLERK COVID-19 Exposure Response Date Recorded In the last month, have you been in contact with someone who was confirmed or suspected to have Coronavirus / COVID-19? No / Unsure 08/24/2021 2:02 PM PRINCIPAL ACCOUNT CLERK documented as of this encounter Functional [...] st Contact Info) Description 08/26/2025 9:00 AM PRINCIPAL ACCOUNT CLERK Office Visit [facility] Medical Group Multispecialty Care - [facility] [address] [facility] [place] [address] Francisco Levi DO [address] [facility] [address] [place] [address] documented as of this encounter Visit Diagnoses Not on filedocumented in this encounter Additional Health Concerns Infection Onset Date Last Indicated Resolved Time COVID-19 Rule Out 12/02/2021 12/02/2021 12/02/2021 4:28 PM CDT COVID-19 Rule Out 05/20/2023 05/20/2023 05/20/2023 6:44 PM CDT COVID-19 Rule Out 09/11/2023 09/11/2023 09/11/2023 10:29 AM PRINCIPAL ACCOUNT CLERK COVID-19 Rule Out 03/18/2024 03/18/2024 03/18/2024 8:30 PM CDT COVID-19 Rule Out 05/27/2024 05/27/2024 05/27/2024 7:16 PM CDT Assessment Noted Time PHQ-9 Depression Total Score: 0 08/24/20 21 2:19 PM PRINCIPAL ACCOUNT CLERK documented as of this encounter Care Teams Plate Preparer Relationship Specialty [place] [address] [place] [address] PCP - General FAMILY PRACTICE 05/15/20 documented as of this encounter
--- OUTSIDE RECORDS SUMMARY | 2025-04-23 11:18 | XMS_ITS | Encounter Summary ---
Author Organization [facility] Address [address] [place] [address] Care Team Providers Care Weave Room Supervisor Name Role Phone Nestor Fletcher MD Primary Care Provider [phone] Encounter Details Date Type Department Care Team (Late st Contact Info) Description 07/07/[address] [facility] Family & Internal Medicine [address] [address] Nestor Fletcher MD [address] [place] [address] RE: Question Social History Tobacco Use [...] Sex Assigned at Female 10/30/2019 8:35 AM THEATER TECHNICIAN Legal Sex Female 10:55 PM CDT Gender Identity Female 10/30/2019 8:35 AM THEATER TECHNICIAN Sexual Orientation Straight 10/30/2019 8: 35 AM THEATER TECHNICIAN COVID-19 Exposure Response Date Recorded In [...] st Contact Info) Description 08/26/2025 9:00 AM THEATER TECHNICIAN Office Visit [facility] Multispecialty Care - [facility] [address] [place] [address] Francisco Levi DO [address] [facility] [place] [address] documented as of this encounter Visit Diagnoses Not on filedocumented in this encounter Additional Health Concerns Infection Onset Date Last Indicated Resolved Time COVID-19 Rule Out 12/02/2021 12/02/2021 12/02/2021 4:28 PM CDT COVID-19 Rule Out 05/20/2023 05/20/2023 05/20/2023 6:44 PM CDT COVID-19 Rule Out 09/11/2023 09/11/2023 09/11/2023 10:29 AM THEATER TECHNICIAN COVID-19 Rule Out 03/18/2024 03/18/2024 03/18/2024 8:30 PM CDT COVID-19 Rule Out 05/27/2024 05/27/2024 05/27/2024 7:16 PM CDT Assessment Noted Time PHQ-9 Depression Total Score: 0 03/30/20 21 11:05 AM CDT documented as of this encounter Care Teams Weave Room Supervisor Relationship Specialty [place] [address] [place] [address] PCP - General FAMILY PRACTICE 05/15/20 documented as of this encounter
--- OUTSIDE RECORDS SUMMARY | 2025-04-23 11:18 | XMS_ITS | Encounter Summary ---
Author Organization [facility] Address [address] [place] [address] Care Team Providers Care Supervisor Detasseling Crew Name Role Phone Nestor Fletcher MD Primary Care Provider +1 [phone] Encounter Details Date Type Department Care Team (Late st Contact Info) Description 04/28/2021 enEvolv Message Enc [facility] Family & Internal Medicine [address] [address] Nestor Fletcher MD [address] [place] [address] RE: Question Social History Tobacco Use [...] Sex Assigned at Female 10/30/2019 8:35 AM PHOTOGRAPHY SALES ASSOCIATE Legal Sex Female 10:55 PM CDT Gender Identity Female 10/30/2019 8:35 AM PHOTOGRAPHY SALES ASSOCIATE Sexual Orientation Straight 10/30/2019 8: 35 AM PHOTOGRAPHY SALES ASSOCIATE COVID-19 Exposure Response Date Recorded [...] st Contact Info) Description 08/26/2025 9:00 AM PHOTOGRAPHY SALES ASSOCIATE Office Visit [facility] Multispecialty Care - [facility] [address] [place] [address] Francisco Levi, [address] [facility] [address] [place] [address] documented as of this encounter Visit Diagnoses Not on filedocumented in this encounter Additional Health Concerns Infection Onset Date Last Indicated Resolved Time COVID-19 Rule Out 12/02/2021 12/02/2021 12/02/2021 4:28 PM CDT COVID-19 Rule Out 05/20/2023 05/20/2023 05/20/2023 6:44 PM CDT COVID-19 Rule Out 09/11/2023 09/11/2023 09/11/2023 10:29 AM PHOTOGRAPHY SALES ASSOCIATE COVID-19 Rule Out 03/18/2024 03/18/2024 03/18/2024 8:30 PM CDT COVID-19 Rule Out 05/27/2024 05/27/2024 05/27/2024 7:16 PM CDT Assessment Noted Time PHQ-9 Depression Total Score: 0 03/30/20 21 11:05 AM CDT documented as of this encounter Care Teams Supervisor Detasseling Crew Relationship Specialty [place] [address] [place] [address] PCP - General FAMILY PRACTICE 05/15/20 documented as of this encounter
--- OUTSIDE RECORDS SUMMARY | 2025-04-23 11:18 | XMS_ITS | Encounter Summary ---
Author Organization [facility] Address [address] [place] [address] Care Team Providers Care Keg Filler Name Role Phone Nestor Fletcher MD Primary Care Provider +1 [phone] Encounter Details Date Type Department Care Team (Late st Contact Info) Description 11/30/2021 CrowdTorcht Message Enc [facility] Multispecialty Care - [facility] [address] [place] [address] Francisco Levi DO [address] [place] [address] Advair Social History Tobacco Use Types Packs/Day [...] Sex Assigned at Female 10/30/2019 8:35 AM PHARMACY TECHNICIAN PER DIEM Legal Sex Female 10:55 PM CDT Gender Identity Female 10/30/2019 8:35 AM PHARMACY TECHNICIAN PER DIEM Sexual Orientation Straight 10/30/2019 8: 35 AM PHARMACY TECHNICIAN PER DIEM COVID-19 Exposure Response Date Recorded In the [...] PM CDT Brinda Chau RN Active * [place] Suicide Severity Rating Scale (Screener/Recent Self-Report) Question [...] st Contact Info) Description 08/26/2025 9:00 AM PHARMACY TECHNICIAN PER DIEM Office Visit [facility] Multispecialty Care - [facility] [address] [place] [address] Francisco Levi DO [address] [place] [address] documented as of this encounter Visit Diagnoses Not on filedocumented in this encounter Additional Health Concerns Infection Onset Date Last Indicated Resolved Time COVID-19 Rule Out 12/02/2021 12/02/2021 12/02/2021 4:28 PM CDT COVID-19 Rule Out 05/20/2023 05/20/2023 05/20/2023 6:44 PM CDT COVID-19 Rule Out 09/11/2023 09/11/2023 09/11/2023 10:29 AM PHARMACY TECHNICIAN PER DIEM COVID-19 Rule Out 03/18/2024 03/18/2024 03/18/2024 8:30 PM CDT COVID-19 Rule Out 05/27/2024 05/27/2024 05/27/2024 7:16 PM CDT Assessment Noted Time PHQ-9 Depression Total Score: 0 08/24/20 21 2:19 PM PHARMACY TECHNICIAN PER DIEM documented as of this encounter Care Teams Keg Filler Relationship Specialty [place] [address] [place] [address] PCP - General FAMILY PRACTICE 05/15/20 documented as of this encounter
--- OUTSIDE RECORDS SUMMARY | 2025-04-23 11:18 | XMS_ITS | Encounter Summary ---
Author Organization [facility] Address [address] [place] [address] Care Team Providers Care Cop Name Role Phone Nestor Fletcher MD Primary Care Provider [phone] Encounter Details Date Type Department Care Team (Late st Contact Info) Description 09/18/2021 [employer] Message Enc [facility] Family & Internal Medicine [facility] [id number] [place] [address] Nestor Fletcher MD [address] [place] [address] Question regarding MRI CERV SPINE WO [...] Sex Assigned at Female 10/30/2019 8:35 AM REHABILITATION MANAGER Legal Sex Female 10:55 PM CDT Gender Identity Female 10/30/2019 8:35 AM REHABILITATION MANAGER Sexual Orientation Straight 10/30/2019 8: 35 AM REHABILITATION MANAGER COVID-19 Exposure Response Date Recorded In the last month, have you been in contact with someone who was confirmed or suspected to have Coronavirus / COVID-19? No / Unsure 08/24/2021 2:02 PM REHABILITATION MANAGER documented as of this encounter Functional [...] st Contact Info) Description 08/26/2025 9:00 AM REHABILITATION MANAGER Office Visit [facility] Multispecialty Care - [facility] [address] [place] [address] Francisco Levi, [address] [facility] [address] [place] [address] documented as of this encounter Visit Diagnoses Not on filedocumented in this encounter Additional Health Concerns Infection Onset Date Last Indicated Resolved Time COVID-19 Rule Out 12/02/2021 12/02/2021 12/02/2021 4:28 PM CDT COVID-19 Rule Out 05/20/2023 05/20/2023 05/20/2023 6:44 PM CDT COVID-19 Rule Out 09/11/2023 09/11/2023 09/11/2023 10:29 AM REHABILITATION MANAGER COVID-19 Rule Out 03/18/2024 03/18/2024 03/18/2024 8:30 PM CDT COVID-19 Rule Out 05/27/2024 05/27/2024 05/27/2024 7:16 PM CDT Assessment Noted Time PHQ-9 Depression Total Score: 0 08/24/20 21 2:19 PM REHABILITATION MANAGER documented as of this encounter Care Teams Cop Relationship Specialty [place] [address] [place] [address] PCP - General FAMILY PRACTICE 05/15/20 documented as of this encounter
--- OUTSIDE RECORDS SUMMARY | 2025-04-23 11:18 | XMS_ITS | Encounter Summary ---
Author Organization [facility] Address [address] [place] [address] Care Team Providers Care Circular Sawyer Stone Name Role Phone Nestor Fletcher MD Primary Care Provider [phone] Encounter Details Date Type Department Care Team (Late st Contact Info) Description 06/27/2021 GLG Message Enc [facility] Family & Internal Medicine [address] [address] Nestor Fletcher MD [address] [place] [address] RE: Question Social History Tobacco Use [...] Sex Assigned at Female 10/30/2019 8:35 AM KEEL PRESS OPERATOR Legal Sex Female 10:55 PM CDT Gender Identity Female 10/30/2019 8:35 AM KEEL PRESS OPERATOR Sexual Orientation Straight 10/30/2019 8: 35 AM KEEL PRESS OPERATOR COVID-19 Exposure Response Date Recorded [...] PM CDT Parrish Justice RN Active * [place] Suicide Severity Rating Scale (Screener/Recent Self-Report) Question [...] st Contact Info) Description 08/26/2025 9:00 AM KEEL PRESS OPERATOR [facility] - [facility] [address] [place] [address] Dagoberto LevishaheenDO [address] [place] [address] documented as of this encounter Visit Diagnoses Not on filedocumented in this encounter Additional Health Concerns Infection Onset Date Last Indicated Resolved Time COVID-19 Rule Out 12/02/2021 12/02/2021 12/02/2021 4:28 PM CDT COVID-19 Rule Out 05/20/2023 05/20/2023 05/20/2023 6:44 PM CDT COVID-19 Rule Out 09/11/2023 09/11/2023 09/11/2023 10:29 AM KEEL PRESS OPERATOR COVID-19 Rule Out 03/18/2024 03/18/2024 03/18/2024 8:30 PM CDT COVID-19 Rule Out 05/27/2024 05/27/2024 05/27/2024 7:16 PM CDT Assessment Noted Time PHQ-9 Depression Total Score: 0 03/30/20 21 11:05 AM CDT documented as of this encounter Care Teams Circular Sawyer Stone Relationship Specialty [place] [address] [place] [address] PCP - General FAMILY PRACTICE 05/15/20 documented as of this encounter
--- OUTSIDE RECORDS SUMMARY | 2025-04-23 11:18 | XMS_ITS | Encounter Summary ---
Author Organization [facility] Address [address] [place] [address] Care Team Providers Care Food Broker Name Role Phone Nestor Fletcher MD Primary Care Provider [phone] Encounter Details Date Type Department Care Team (Late st Contact Info) Description 11/23/2021 Journeyst Message Enc [facility] Multispecialty Care - [facility] [address] [facility] [place] [address] Pura Velazquez APRN [address] [facility] [address] [place] [address] Appointment. Social History Tobacco Use Types Packs/Day [...] Sex Assigned at Female 10/30/2019 8:35 AM MORTGAGE SERVICING SPECIALIST Legal Sex Female 10:55 PM CDT Gender Identity Female 10/30/2019 8:35 AM MORTGAGE SERVICING SPECIALIST Sexual Orientation Straight 10/30/2019 8: 35 AM MORTGAGE SERVICING SPECIALIST COVID-19 Exposure Response Date Recorded In [...] st Contact Info) Description 08/26/2025 9:00 AM MORTGAGE SERVICING SPECIALIST Office Visit [facility] Multispecialty Care - [facility] [address] [facility] [address] [place] [address] Francisco Levi, [address] [facility] [address] [place] [address] documented as of this encounter Visit Diagnoses Not on filedocumented in this encounter Additional Health Concerns Infection Onset Date Last Indicated Resolved Time COVID-19 Rule Out 12/02/2021 12/02/2021 12/02/2021 4:28 PM CDT COVID-19 Rule Out 05/20/2023 05/20/2023 05/20/2023 6:44 PM CDT COVID-19 Rule Out 09/11/2023 09/11/2023 09/11/2023 10:29 AM MORTGAGE SERVICING SPECIALIST COVID-19 Rule Out 03/18/2024 03/18/2024 03/18/2024 8:30 PM CDT COVID-19 Rule Out 05/27/2024 05/27/2024 05/27/2024 7:16 PM CDT Assessment Noted Time PHQ-9 Depression Total Score: 0 08/24/20 21 2:19 PM MORTGAGE SERVICING SPECIALIST documented as of this encounter Care Teams Food Broker Relationship Specialty [place] [address] [place] [address] PCP - General FAMILY PRACTICE 05/15/20 documented as of this encounter
--- OUTSIDE RECORDS SUMMARY | 2025-04-23 11:18 | XMS_ITS | Encounter Summary ---
Author Organization [facility] Address [facility] [place] [address] Care Team Providers Care Site Director Name Role Phone Tutu Hill MD Primary Care Provider + CharlotteAry NP Primary Care Provider + None, Provider Primary Care Provider Nestor Ma MD Primary Care Provider [phone] Encounter Details Date Type Department Care Team (Late st Contact Info) Description 03/10/2004 Abstract [facility] Conversion , Generic Conversion, Social History Tobacco Use Types Packs/Day Years Used Date Smoking Tobacco: Never Assessed Comments Unknown Sex and Gender Information Value Date Recorded Sex Assigned at Female 10/30/2019 8:35 AM HEAD OF TRANSPORT LOGISTICS Legal Sex Female 10:55 PM CDT Gender Identity Female 10/30/2019 8:35 AM HEAD OF TRANSPORT LOGISTICS Sexual Orientation Straight 10/30/2019 8: 35 AM HEAD OF TRANSPORT LOGISTICS documented as of this encounter Plan of Treatment Upcoming Encounters Date Type Department Care Team (Late st Contact Info) Description 08/26/2025 9:00 AM HEAD OF TRANSPORT LOGISTICS Office Visit [facility] Multispecialty Care - [facility] [address] [place] [address] Francisco Levi DO [address] [facility] [address] [place] [address] [phone] (work) documented as of this encounter Visit [...] Rule Out 07/06/2020 07/06/2020 07/08/2020 11:00 PM HEAD OF TRANSPORT LOGISTICS COVID-19 Rule Out 07/09/2020 07/09/2020 07/12/2020 10:16 AM HEAD OF TRANSPORT LOGISTICS COVID-19 Rule Out 11/14/2020 11/14/2020 11/15/2020 10:25 AM CDT COVID-19 Rule Out 01/05/2021 01/05/2021 01/05/2021 5:26 PM CDT COVID-19 Rule Out 12/02/2021 12/02/2021 12/02/2021 4:28 PM CDT COVID-19 Rule Out 05/20/2023 05/20/2023 05/20/2023 6:44 PM CDT COVID-19 Rule Out 09/11/2023 09/11/2023 09/11/2023 10:29 AM HEAD OF TRANSPORT LOGISTICS COVID-19 Rule Out 03/18/2024 03/18/2024 03/18/2024 8:30 PM CDT COVID-19 Rule Out 05/27/2024 05/27/202405/2705/27/2024 7:16 PM CDT documented as of this encounter Care Teams Site Director Relationship Specialty Start Date End Date Tutu Hill MD [address] [facility] [address] [place] [address] PCP - General FAMILY PRACTICE 08/09/18 03/19/20 Ary Rubalcava NP [address] [facility] [address] [place] [address] PCP - General Nurse Practitioner Family 03/20/2003/05 None, MD Santana PCP - General 03/25/20 05/14/20 [place] [address] [place] [address] PCP - General FAMILY PRACTICE 05/15/20 documented as of this encounter
--- OUTSIDE RECORDS SUMMARY | 2025-04-23 11:18 | XMS_ITS | Encounter Summary ---
Author Organization [facility] Address [address] [place] [address] Care Team Providers Care Engine Repair Supervisor Name Role Phone Nestor Fletcher MD Primary Care Provider [phone] Encounter Details Date Type Department Care Team (Late st Contact Info) Description 06/09/2021 [employer]ers Message Enc [facility] Medical Group Family & Internal Medicine [address] [address] Nestor Fletcher MD [address] [place] [address] RE: Question Social History Tobacco Use [...] Sex Assigned at Female 10/30/2019 8:35 AM ENVIRONMENTAL PROTECTION SPECIALIST Legal Sex Female 10:55 PM CDT Gender Identity Female 10/30/2019 8:35 AM ENVIRONMENTAL PROTECTION SPECIALIST Sexual Orientation Straight 10/30/2019 8: 35 AM ENVIRONMENTAL PROTECTION SPECIALIST COVID-19 Exposure Response Date Recorded [...] st Contact Info) Description 08/26/2025 9:00 AM ENVIRONMENTAL PROTECTION SPECIALIST Office Visit [facility] Mult[facility]pecialty Care - [facility] [address] [place] [address] Francisco Levi, [address] [facility] [address] [place] [address] documented as of this encounter Visit Diagnoses Not on filedocumented in this encounter Additional Health Concerns Infection Onset Date Last Indicated Resolved Time COVID-19 Rule Out 12/02/2021 12/02/2021 12/02/2021 4:28 PM CDT COVID-19 Rule Out 05/20/2023 05/20/2023 05/20/2023 6:44 PM CDT COVID-19 Rule Out 09/11/2023 09/11/2023 09/11/2023 10:29 AM ENVIRONMENTAL PROTECTION SPECIALIST COVID-19 Rule Out 03/18/2024 03/18/2024 03/18/2024 8:30 PM CDT COVID-19 Rule Out 05/27/2024 05/27/2024 05/27/2024 7:16 PM CDT Assessment Noted Time PHQ-9 Depression Total Score: 0 03/30/20 21 11:05 AM CDT documented as of this encounter Care Teams Engine Repair Supervisor Relationship Specialty [place] [address] [place] [address] PCP - General FAMILY PRACTICE 05/15/20 documented as of this encounter
--- OUTSIDE RECORDS SUMMARY | 2025-04-23 11:18 | XMS_ITS | Encounter Summary ---
Author Organization [facility] Address [address] [place] [address] Care Team Providers Care Automotive Software Engineer Name Role Phone Nestor Fletcher MD Primary Care Provider [phone] Encounter Details Date Type Department Care Team (Late st Contact Info) Description 06/16/2021 Almashopping Message Enc [facility] Medical Group Family & Internal Medicine [address] [address] Nestor Fletcher MD [address] [place] [address] RE: Question Social History Tobacco Use [...] Sex Assigned at Female 10/30/2019 8:35 AM OWNER OPERATOR Legal Sex Female 10:55 PM CDT Gender Identity Female 10/30/2019 8:35 AM OWNER OPERATOR Sexual Orientation Straight 10/30/2019 8: 35 AM OWNER OPERATOR COVID-19 Exposure Response Date Recorded In [...] PM CDTSummary: Accepts Pt's Insurance [facility] in [place], [facility] [place] & [place] are the only Physical Therapy Office's that will accept the patients [employer] Better [employer] Insurance. Patient cancall [phone] and ask for which office that is [...] st Contact Info) Description 08/26/2025 9:00 AM OWNER OPERATOR Office Visit [facility] Mult[facility]pecialty Care - [facility] [address] [place] [address] Francisco Levi DO [address] [place] [address] documented as of this encounter Visit Diagnoses Not on filedocumented in this encounter Additional Health Concerns Infection Onset Date Last Indicated Resolved Time COVID-19 Rule Out 12/02/2021 12/02/2021 12/02/2021 4:28 PM CDT COVID-19 Rule Out 05/20/2023 05/20/2023 05/20/2023 6:44 PM CDT COVID-19 Rule Out 09/11/2023 09/11/2023 09/11/2023 10:29 AM OWNER OPERATOR COVID-19 Rule Out 03/18/2024 03/18/2024 03/18/2024 8:30 PM CDT COVID-19 Rule Out 05/27/2024 05/27/2024 05/27/2024 7:16 PM CDT Assessment Noted Time PHQ-9 Depression Total Score: 0 03/30/20 21 11:05 AM CDT documented as of this encounter Care Teams Automotive Software Engineer Relationship Specialty [place] [address] [place] [address] PCP - General FAMILY PRACTICE 05/15/20 documented as of this encounter
--- OUTSIDE RECORDS SUMMARY | 2025-04-23 11:18 | XMS_ITS | Encounter Summary ---
Author Organization [facility] Address [address] [place] [address] Care Team Providers Care Ordnance Corps Officer Name Role Phone Nestor Fletcher MD Primary Care Provider [phone] Encounter Details Date Type Department Care Team (Late st Contact Info) Description 11/22/2021 Newser Message [facility] [address] Angelica Archer, RETAIL PROPERTY MANAGER [address] [address] Test Social History Tobacco Use [...] Sex Assigned at Female 10/30/2019 8:35 AM ELECTRON BEAM PHOTO MASK TECHNICIAN Legal Sex Female 10:55 PM CDT Gender Identity Female 10/30/2019 8:35 AM ELECTRON BEAM PHOTO MASK TECHNICIAN Sexual Orientation Straight 10/30/2019 8: 35 AM ELECTRON BEAM PHOTO MASK TECHNICIAN COVID-19 Exposure Response Date Recorded In [...] try nitroglycerin which she has at home. Severance to schedule echo Dx: chest pain * [...] st Contact Info) Description 08/26/2025 9:00 AM ELECTRON BEAM PHOTO MASK TECHNICIAN Office Visit [facility] Multispecialty Care - [facility] [address] [place] [address] Francisco Levi DO [address] [place] [address] documented as of this encounter Visit Diagnoses Not on filedocumented in this encounter Additional Health Concerns Infection Onset Date Last Indicated Resolved Time COVID-19 Rule Out 12/02/2021 12/02/2021 12/02/2021 4:28 PM CDT COVID-19 Rule Out 05/20/2023 05/20/2023 05/20/2023 6:44 PM CDT COVID-19 Rule Out 09/11/2023 09/11/2023 09/11/2023 10:29 AM ELECTRON BEAM PHOTO MASK TECHNICIAN COVID-19 Rule Out 03/18/2024 03/18/2024 03/18/2024 8:30 PM CDT COVID-19 Rule Out 05/27/2024 05/27/2024 05/27/2024 7:16 PM CDT Assessment Noted Time PHQ-9 Depression Total Score: 0 08/24/20 21 2:19 PM ELECTRON BEAM PHOTO MASK TECHNICIAN documented as of this encounter Care Teams Ordnance Corps Officer Relationship Specialty [place] [address] [place] [address] PCP - General FAMILY PRACTICE 05/15/20 documented as of this encounter
--- OUTSIDE RECORDS SUMMARY | 2025-04-23 11:18 | XMS_ITS | Encounter Summary ---
Author Organization [facility] Address [address] [place] [address] Care Team Providers Care Dry Can Tender Name Role Phone Nestor Fletcher MD Primary Care Provider [phone] Encounter Details Date Type Department Care Team (Late st Contact Info) Description 10/18/2021 Sorbent Green Message Enc [facility] Medical Group Family & Internal Medicine [address] [address] Nestor Fletcher MD [address] [place] [address] Needing help Social History Tobacco Use [...] Sex Assigned at Female 10/30/2019 8:35 AM CAR STOWER Legal Sex Female 10:55 PM CDT Gender Identity Female 10/30/2019 8:35 AM CAR STOWER Sexual Orientation Straight 10/30/2019 8: 35 AM CAR STOWER COVID-19 Exposure Response Date Recorded In the last 10 days, have yo u been in contact with someone who was confirmed or suspected to have Coronavirus/COVID-19? No / Unsure 10/15/2021 8:52 AM CAR STOWER documented as of this encounter Functional Status [...] st Contact Info) Description 08/26/2025 9:00 AM CAR STOWER Office Visit [facility] Medical Group Multispecialty Care - [facility] [address] [place] [address] Francisco Levi DO [address] [facility] [address] [place] [address] documented as of this encounter Visit Diagnoses Not on filedocumented in this encounter Additional Health Concerns Infection Onset Date Last Indicated Resolved Time COVID-19 Rule Out 12/02/2021 12/02/2021 12/02/2021 4:28 PM CDT COVID-19 Rule Out 05/20/2023 05/20/2023 05/20/2023 6:44 PM CDT COVID-19 Rule Out 09/11/2023 09/11/2023 09/11/2023 10:29 AM CAR STOWER COVID-19 Rule Out 03/18/2024 03/18/2024 03/18/2024 8:30 PM CDT COVID-19 Rule Out 05/27/2024 05/27/2024 05/27/2024 7:16 PM CDT Assessment Noted Time PHQ-9 Depression Total Score: 0 08/24/20 21 2:19 PM CAR STOWER documented as of this encounter Care Teams Dry Can Tender Relationship Specialty [place] [address] [place] [address] PCP - General FAMILY PRACTICE 05/15/20 documented as of this encounter
--- OUTSIDE RECORDS SUMMARY | 2025-04-23 11:18 | XMS_ITS | Encounter Summary ---
Author Organization [facility] Address [address] [place] [address] Care Team Providers Care City Carrier Name Role Phone Nestor Fletcher MD Primary Care Provider [phone] Encounter Details Date Type Department Care Team (Late st Contact Info) Description 11/23/2021 DeepFieldt Message Enc [facility] Medical Group Multispecialty Care - [facility] [address] [place] [phone] Pura Velazquez APRN [address] [facility] [address] [place] [address] Last message Social History Tobacco Use Types [...] Sex Assigned at Female 10/30/2019 8:35 AM BLADE BONER Legal Sex Female 10:55 PM CDT Gender Identity Female 10/30/2019 8:35 AM BLADE BONER Sexual Orientation Straight 10/30/2019 8: 35 AM BLADE BONER COVID-19 Exposure Response Date Recorded In the [...] st Contact Info) Description 08/26/2025 9:00 AM BLADE BONER Office Visit [facility] Medical Group Multispecialty Care - [facility] [address] [place] [address] Francisco Levi, [address] [facility] [address] [place] [address] documented as of this encounter Visit Diagnoses Not on filedocumented in this encounter Additional Health Concerns Infection Onset Date Last Indicated Resolved Time COVID-19 Rule Out 12/02/2021 12/02/2021 12/02/2021 4:28 PM CDT COVID-19 Rule Out 05/20/2023 05/20/2023 05/20/2023 6:44 PM CDT COVID-19 Rule Out 09/11/2023 09/11/2023 09/11/2023 10:29 AM BLADE BONER COVID-19 Rule Out 03/18/2024 03/18/2024 03/18/2024 8:30 PM CDT COVID-19 Rule Out 05/27/2024 05/27/2024 05/27/2024 7:16 PM CDT Assessment Noted Time PHQ-9 Depression Total Score: 0 08/24/20 21 2:19 PM BLADE BONER documented as of this encounter Care Teams City Carrier Relationship Specialty [place] [address] [place] [address] PCP - General FAMILY PRACTICE 05/15/20 documented as of this encounter
--- OUTSIDE RECORDS SUMMARY | 2025-04-23 11:18 | XMS_ITS | Encounter Summary ---
Author Organization [facility] Address [address] [place] [address] Care Team Providers Care Doll Dresser Name Role Phone Nestor Fletcher MD Primary Care Provider [phone] Encounter Details Date Type Department Care Team (Late st Contact Info) Description 10/13/2021 Repros Therapeutics Message Enc [facility] Medical Group Family & Internal Medicine [address] [address] Nestor Fletcher MD [address] [place] [address] Pain Social History Tobacco Use Types [...] Sex Assigned at Female 10/30/2019 8:35 AM SEAL MIXER Legal Sex Female 10:55 PM CDT Gender Identity Female 10/30/2019 8:35 AM SEAL MIXER Sexual Orientation Straight 10/30/2019 8: 35 AM SEAL MIXER COVID-19 Exposure Response Date Recorded In the last 10 days, have marielos u been in contact with someone who was confirmed or suspected to have Coronavirus/COVID-19? No / Unsure 10/15/2021 8:52 AM SEAL MIXER documented as of this encounter Functional [...] st Contact Info) Description 08/26/2025 9:00 AM SEAL MIXER Office Visit [facility] Medical Group Multispecialty Care - [facility] [address] [place] [phone] Francisco Levi DO 3 [facility] [address] [place] [address] documented as of this encounter Visit Diagnoses Not on filedocumented in this encounter Additional Health Concerns Infection Onset Date Last Indicated Resolved Time COVID-19 Rule Out 12/02/2021 12/02/2021 12/02/2021 4:28 PM CDT COVID-19 Rule Out 05/20/2023 05/20/2023 05/20/2023 6:44 PM CDT COVID-19 Rule Out 09/11/2023 09/11/2023 09/11/2023 10:29 AM SEAL MIXER COVID-19 Rule Out 03/18/2024 03/18/2024 03/18/2024 8:30 PM CDT COVID-19 Rule Out 05/27/2024 05/27/2024 05/27/2024 7:16 PM CDT Assessment Noted Time PHQ-9 Depression Total Score: 0 08/24/20 21 2:19 PM SEAL MIXER documented as of this encounter Care Teams Doll Dresser Relationship Specialty [place] [address] [place] [address] PCP - General FAMILY PRACTICE 05/15/20 documented as of this encounter
--- OUTSIDE RECORDS SUMMARY | 2025-04-23 11:18 | XMS_ITS | Encounter Summary ---
Author Organization [facility] Address [address] [place] [address] Care Team Providers Care Warp Knit Operator Name Role Phone Nestor Fletcher MD Primary Care Provider [phone] Encounter Details Date Type Department Care Team (Late st Contact Info) Description 11/29/2021 Dolphin Message Enc [facility] Medical Group Foot & Ankle Specialists [facility] [address] [place] [address] Carlos A Ocasio, DPBrinda [address] [place] [address] Steroid shot Social History Tobacco Use [...] Sex Assigned at Female 10/30/2019 8:35 AM RECREATIONAL AIDE Legal Sex Female 10:55 PM CDT Gender Identity Female 10/30/2019 8:35 AM RECREATIONAL AIDE Sexual Orientation Straight 10/30/2019 8: 35 AM RECREATIONAL AIDE COVID-19 Exposure Response Date Recorded In [...] PM CDT Brinda Chau RN Active * [place] Suicide Severity Rating Scale (Screener/Recent Self-Report) Question [...] st Contact Info) Description 08/26/2025 9:00 AM RECREATIONAL AIDE Office Visit [facility] Medical Group Multispecialty Care - [facility] [address] [place] [address] Francisco Levi DO [address] [facility] [address] [place] [address] documented as of this encounter Visit Diagnoses Not on filedocumented in this encounter Additional Health Concerns Infection Onset Date Last Indicated Resolved Time COVID-19 Rule Out 12/02/2021 12/02/2021 12/02/2021 4:28 PM CDT COVID-19 Rule Out 05/20/2023 05/20/2023 05/20/2023 6:44 PM CDT COVID-19 Rule Out 09/11/2023 09/11/2023 09/11/2023 10:29 AM RECREATIONAL AIDE COVID-19 Rule Out 03/18/2024 03/18/2024 03/18/2024 8:30 PM CDT COVID-19 Rule Out 05/27/2024 05/27/2024 05/27/2024 7:16 PM CDT Assessment Noted Time PHQ-9 Depression Total Score: 0 08/24/20 21 2:19 PM RECREATIONAL AIDE documented as of this encounter Care Teams Warp Knit Operator Relationship Specialty [place] [address] [place] [address] PCP - General FAMILY PRACTICE 05/15/20 documented as of this encounter
--- OUTSIDE RECORDS SUMMARY | 2025-04-23 11:18 | XMS_ITS | Encounter Summary ---
Author Organization [facility] Address [address] [place] [address] Care Team Providers Care Egg Factory Worker Name Role Phone Nestor Fletcher MD Primary Care Provider [phone] Encounter Details Date Type Department Care Team (Late st Contact Info) Description 10/18/2023 GMI Message Enc [facility] Medical Group Family & Internal Medicine [address] [address] Nestor Fletcher MD [address] [place] [address] Pain Social History Tobacco Use Types [...] Sex Assigned at Female 10/30/2019 8:35 AM STAVE HEWER Legal Sex Female 10:55 PM CDT Gender Identity Female 10/30/2019 8:35 AM STAVE HEWER Sexual Orientation Straight 10/30/2019 8: 35 AM STAVE HEWER documented as of this encounter Functional Status [...] Author Status No 06/06/2022 12:00 PM CINTHYAT Gerogia Lovell RN Active * Do you have [...] st Contact Info) Description 08/26/2025 9:00 AM STAVE HEWER Office Visit [facility] Medical Group Multispecialty Care - [facility] [address] [place] [address] Francisco Levi, [address] [facility] [address] [place] [address] documented as of this encounter Goals Goal [...] documented as of this encounter Care Teams Egg Factory Worker Relationship Specialty [place] [address] [place] [address] PCP - General FAMILY PRACTICE 05/15/20 documented as of this encounter
--- OUTSIDE RECORDS SUMMARY | 2025-04-23 11:18 | XMS_ITS | Encounter Summary ---
Author Organization [facility] Address [address] [place] [address] Care Team Providers Care Meter Readers Supervisor Name Role Phone Nestor Fletcher MD Primary Care Provider [phone] Encounter Details Date Type Department Care Team (Late st Contact Info) Description 07/06/2021 View Medical Message Enc [facility] Medical Group Family & Internal Medicine [address] [address] Nestor Fletcher MD [address] [place] [address] RE: Question Social History Tobacco Use [...] Sex Assigned at Female 10/30/2019 8:35 AM PRODUCTION TROUBLESHOOTER Legal Sex Female 10:55 PM CDT Gender Identity Female 10/30/2019 8:35 AM PRODUCTION TROUBLESHOOTER Sexual Orientation Straight 10/30/2019 8: 35 AM PRODUCTION TROUBLESHOOTER COVID-19 Exposure Response Date Recorded In the [...] st Contact Info) Description 08/26/2025 9:00 AM PRODUCTION TROUBLESHOOTER Office Visit [facility] Medical Group Multispecialty Care - [facility] [address] [place] [address] Francisco Levi DO [address] [facility] [address] [place] [address] documented as of this encounter Visit Diagnoses Not on filedocumented in this encounter Additional Health Concerns Infection Onset Date Last Indicated Resolved Time COVID-19 Rule Out 12/02/2021 12/02/2021 12/02/2021 4:28 PM CDT COVID-19 Rule Out 05/20/2023 05/20/2023 05/20/2023 6:44 PM CDT COVID-19 Rule Out 09/11/2023 09/11/2023 09/11/2023 10:29 AM PRODUCTION TROUBLESHOOTER COVID-19 Rule Out 03/18/2024 03/18/2024 03/18/2024 8:30 PM CDT COVID-19 Rule Out 05/27/2024 05/27/2024 05/27/2024 7:16 PM CDT Assessment Noted Time PHQ-9 Depression Total Score: 0 03/30/20 21 11:05 AM CDT documented as of this encounter Care Teams Meter Readers Supervisor Relationship Specialty [place] [address] [place] [address] PCP - General FAMILY PRACTICE 05/15/20 documented as of this encounter
--- OUTSIDE RECORDS SUMMARY | 2025-04-23 11:18 | XMS_ITS | Encounter Summary ---
Author Organization [facility] Address [address] [place] [address] Care Team Providers Care Manager Marketing Communications Name Role Phone Nestor Fletcher MD Primary Care Provider [phone] Encounter Details Date Type Department Care Team (Late st Contact Info) Description 11/29/2021 CaseTrek Message Enc [facility] Medical Group Family & Internal Medicine [address] [address] Nestor Fletcher MD [address] [place] [address] Pain Social History Tobacco Use Types [...] Sex Assigned at Female 10/30/2019 8:35 AM RAILROAD BAGGAGE PORTER Legal Sex Female 10:55 PM CDT Gender Identity Female 10/30/2019 8:35 AM RAILROAD BAGGAGE PORTER Sexual Orientation Straight 10/30/2019 8: 35 AM RAILROAD BAGGAGE PORTER COVID-19 Exposure Response Date Recorded In the [...] PM CDT Brinda Chau RN Active * [place] Suicide Severity Rating Scale (Screener/Recent Self-Report) Question [...] st Contact Info) Description 08/26/2025 9:00 AM RAILROAD BAGGAGE PORTER Office Visit [facility] Medical Group Multispecialty Care - [facility] [address] [place] [address] Francisco Levi DO [address] [facility] [address] [place] [address] documented as of this encounter Visit Diagnoses Not on filedocumented in this encounter Additional Health Concerns Infection Onset Date Last Indicated Resolved Time COVID-19 Rule Out 12/02/2021 12/02/2021 12/02/2021 4:28 PM CDT COVID-19 Rule Out 05/20/2023 05/20/2023 05/20/2023 6:44 PM CDT COVID-19 Rule Out 09/11/2023 09/11/2023 09/11/2023 10:29 AM RAILROAD BAGGAGE PORTER COVID-19 Rule Out 03/18/2024 03/18/2024 03/18/2024 8:30 PM CDT COVID-19 Rule Out 05/27/2024 05/27/2024 05/27/2024 7:16 PM CDT Assessment Noted Time PHQ-9 Depression Total Score: 0 08/24/20 21 2:19 PM RAILROAD BAGGAGE PORTER documented as of this encounter Care Teams Manager Marketing Communications Relationship Specialty [place] [address] [place] [address] PCP - General FAMILY PRACTICE 05/15/20 documented as of this encounter
--- OUTSIDE RECORDS SUMMARY | 2025-04-23 11:18 | XMS_ITS | Encounter Summary ---
Author Organization [facility] Address [address] [place] [address] Care Team Providers Care Senior Courtroom Clerk Name Role Phone Nestor Fletcher MD Primary Care Provider [phone] Encounter Details Date Type Department Care Team (Late st Contact Info) Description 05/24/2021 GoGuide Message Enc [facility] Medical Group Family & Internal Medicine [address] [address] Nestor Fletcher MD [address] [place] [address] RE: Medication Questions Social History Tobacco [...] Sex Assigned at Female 10/30/2019 8:35 AM METALLURGICAL INSPECTOR Legal Sex Female 10:55 PM CDT Gender Identity Female 10/30/2019 8:35 AM METALLURGICAL INSPECTOR Sexual Orientation Straight 10/30/2019 8: 35 AM METALLURGICAL INSPECTOR COVID-19 Exposure Response Date Recorded In [...] st Contact Info) Description 08/26/2025 9:00 AM METALLURGICAL INSPECTOR Office Visit [facility] Medical Group Multispecialty Care - [facility] [address] [place] [address] Francisco Levi, [address] [facility] [address] [place] [address] documented as of this encounter Visit Diagnoses Not on filedocumented in this encounter Additional Health Concerns Infection Onset Date Last Indicated Resolved Time COVID-19 Rule Out 12/02/2021 12/02/2021 12/02/2021 4:28 PM CDT COVID-19 Rule Out 05/20/2023 05/20/2023 05/20/2023 6:44 PM CDT COVID-19 Rule Out 09/11/2023 09/11/2023 09/11/2023 10:29 AM METALLURGICAL INSPECTOR COVID-19 Rule Out 03/18/2024 03/18/2024 03/18/2024 8:30 PM CDT COVID-19 Rule Out 05/27/2024 05/27/2024 05/27/2024 7:16 PM CDT Assessment Noted Time PHQ-9 Depression Total Score: 0 03/30/20 21 11:05 AM CDT documented as of this encounter Care Teams Senior Courtroom Clerk Relationship Specialty [place] [address] [place] [address] PCP - General FAMILY PRACTICE 05/15/20 documented as of this encounter
--- OUTSIDE RECORDS SUMMARY | 2025-04-23 11:18 | XMS_ITS | Encounter Summary ---
Author Organization [facility] Address [address] [place] [address] Care Team Providers Care River Rat Name Role Phone Nestor Fletcher MD Primary Care Provider [phone] Encounter Details Date Type Department Care Team (Late st Contact Info) Description 11/08/2021 [employer] Message Enc [facility] Medical Group Family & Internal Medicine [address] [address] Nestor Fletcher MD [address] [place] [address] Sinus Social History Tobacco Use Types [...] Sex Assigned at Female 10/30/2019 8:35 AM SOLUTIONS DELIVERY CONSULTANT Legal Sex Female 10:55 PM CDT Gender Identity Female 10/30/2019 8:35 AM SOLUTIONS DELIVERY CONSULTANT Sexual Orientation Straight 10/30/2019 8: 35 AM SOLUTIONS DELIVERY CONSULTANT COVID-19 Exposure Response Date Recorded In the last 10 days, have yo u been in contact with someone who was confirmed or suspected to have Coronavirus/COVID-19? No / Unsure 11/02/2021 11:14 AM SOLUTIONS DELIVERY CONSULTANT documented as of this encounter Functional [...] st Contact Info) Description 08/26/2025 9:00 AM SOLUTIONS DELIVERY CONSULTANT Office Visit [facility] Medical Group Multispecialty Care - [facility] [address] [place] [phone] Francisco Levi DO [address] [facility] [address] [place] [address] documented as of this encounter Visit Diagnoses Not on filedocumented in this encounter Additional Health Concerns Infection Onset Date Last Indicated Resolved Time COVID-19 Rule Out 12/02/2021 12/02/2021 12/02/2021 4:28 PM CDT COVID-19 Rule Out 05/20/2023 05/20/2023 05/20/2023 6:44 PM CDT COVID-19 Rule Out 09/11/2023 09/11/2023 09/11/2023 10:29 AM SOLUTIONS DELIVERY CONSULTANT COVID-19 Rule Out 03/18/2024 03/18/2024 03/18/2024 8:30 PM CDT COVID-19 Rule Out 05/27/2024 05/27/2024 05/27/2024 7:16 PM CDT Assessment Noted Time PHQ-9 Depression Total Score: 0 08/24/20 21 2:19 PM SOLUTIONS DELIVERY CONSULTANT documented as of this encounter Care Teams River Rat Relationship Specialty [place] [address] [place] [address] PCP - General FAMILY PRACTICE 05/15/20 documented as of this encounter
--- OUTSIDE RECORDS SUMMARY | 2025-04-23 11:18 | XMS_ITS | Encounter Summary ---
Author Organization [facility] Address [address] [place] [address] Care Team Providers Care Pantomimist Name Role Phone Nestor Fletcher MD Primary Care Provider [phone] Encounter Details Date Type Department Care Team (Late st Contact Info) Description 09/29/2021 Presentain Message Enc [facility] Medical Group Family & Internal Medicine [address] [address] Nestor Fletcher MD [address] [place] [address] Pain meds and follow up Social [...] Sex Assigned at Female 10/30/2019 8:35 AM ALCOHOLISM WORKER Legal Sex Female 10:55 PM CDT Gender Identity Female 10/30/2019 8:35 AM ALCOHOLISM WORKER Sexual Orientation Straight 10/30/2019 8: 35 AM ALCOHOLISM WORKER COVID-19 Exposure Response Date Recorded In the last month, have you been in contact with someone who was confirmed or suspected to have Coronavirus / COVID-19? No / Unsure 10/01/2021 1:05 PM ALCOHOLISM WORKER documented as of this encounter Functional [...] - 09/30/2021 8:06 AM CST Duplicate request. HOLISM WORKER documented in this encounter Plan of Treatment Upcoming Encounters Date Type Department Care Team (Late st Contact Info) Description 08/26/2025 9:00 AM ALCOHOLISM WORKER Office Visit [facility] Medical Group Multispecialty Care - [address] [place] [address] Francisco Levi DO [address] [place] [address] documented as of this encounter Visit Diagnoses Not on filedocumented in this encounter Additional Health Concerns Infection Onset Date Last Indicated Resolved Time COVID-19 Rule Out 12/02/2021 12/02/2021 12/02/2021 4:28 PM CDT COVID-19 Rule Out 05/20/2023 05/20/2023 05/20/2023 6:44 PM CDT COVID-19 Rule Out 09/11/2023 09/11/2023 09/11/2023 10:29 AM ALCOHOLISM WORKER COVID-19 Rule Out 03/18/2024 03/18/2024 03/18/2024 8:30 PM CDT COVID-19 Rule Out 05/27/2024 05/27/2024 05/27/2024 7:16 PM CDT Assessment Noted Time PHQ-9 Depression Total Score: 0 08/24/20 21 2:19 PM ALCOHOLISM WORKER documented as of this encounter Care Teams Pantomimist Relationship Specialty [place] [address] [place] [address] PCP - General FAMILY PRACTICE 05/15/20 documented as of this encounter
--- OUTSIDE RECORDS SUMMARY | 2025-04-23 11:18 | XMS_ITS | Encounter Summary ---
Author Organization [facility] Address [address] [place] [address] Care Team Providers Care Colloid Mill Operator Name Role Phone Nestor Fletcher MD Primary Care Provider [phone] Encounter Details Date Type Department Care Team (Late st Contact Info) Description 04/20/2021 Oz Sonotek Message Enc [facility] Medical Group Family & Internal Medicine [address] [address] Nestor Fletcher MD [address] [place] [address] RE: Question Social History Tobacco Use [...] Sex Assigned at Female 10/30/2019 8:35 AM .NET DEVELOPER Legal Sex Female 10:55 PM CDT Gender Identity Female 10/30/2019 8:35 AM .NET DEVELOPER Sexual Orientation Straight 10/30/2019 8: 35 AM .NET DEVELOPER COVID-19 Exposure Response Date Recorded [...] st Contact Info) Description 08/26/2025 9:00 AM .NET DEVELOPER Office Visit [facility] Medical Group Multispecialty Care - [facility] [address] [facility] [address] [place] [address] Francisco Levi, [address] [facility] [address] [place] [address] documented as of this encounter Visit Diagnoses Not on filedocumented in this encounter Additional Health Concerns Infection Onset Date Last Indicated Resolved Time COVID-19 Rule Out 12/02/2021 12/02/2021 12/02/2021 4:28 PM CDT COVID-19 Rule Out 05/20/2023 05/20/2023 05/20/2023 6:44 PM CDT COVID-19 Rule Out 09/11/2023 09/11/2023 09/11/2023 10:29 AM .NET DEVELOPER COVID-19 Rule Out 03/18/2024 03/18/2024 03/18/2024 8:30 PM CDT COVID-19 Rule Out 05/27/2024 05/27/2024 05/27/2024 7:16 PM CDT Assessment Noted Time PHQ-9 Depression Total Score: 0 03/30/20 21 11:05 AM CDT documented as of this encounter Care Teams Colloid Mill Operator Relationship Specialty [place] [address] [place] [address] PCP - General FAMILY PRACTICE 05/15/20 documented as of this encounter
--- OUTSIDE RECORDS SUMMARY | 2025-04-23 11:18 | XMS_ITS | Encounter Summary ---
Author Organization [facility] Address [address] [place] [address] Care Team Providers Care Carpenter Streetcar Name Role Phone Nestor Fletcher MD Primary Care Provider [phone] [phone] Encounter Details Date Type Department Care Team (Late st Contact Info) Description 09/06/2021 GENERAL MEDICAL MERATE Message Enc [facility] Medical Group Family & Internal Medicine [address] [address] Nestor Fletcher MD [address] [place] [address] Covid Social History Tobacco Use Types [...] Sex Assigned at Female 10/30/2019 8:35 AM SHREDDED FILLER CIGAR MAKER MACHINE Legal Sex Female 10:55 PM CDT Gender Identity Female 10/30/2019 8:35 AM SHREDDED FILLER CIGAR MAKER MACHINE Sexual Orientation Straight 10/30/2019 8: 35 AM SHREDDED FILLER CIGAR MAKER MACHINE COVID-19 Exposure Response Date Recorded In the last month, have you been in contact with someone who was confirmed or suspected to have Coronavirus / COVID-19? No / Unsure 08/24/2021 2:02 PM SHREDDED FILLER CIGAR MAKER MACHINE documented as of this encounter Functional Status [...] st Contact Info) Description 08/26/2025 9:00 AM SHREDDED FILLER CIGAR MAKER MACHINE Office Visit [facility] Medical Group Multispecialty Care - [facility] [address] [place] [address] Francisco Levi DO [address] [facility] [address] [place] [address] documented as of this encounter Visit Diagnoses Diagnosis Cough- Primary documented in this encounter Additional Health Concerns Infection Onset Date Last Indicated Resolved Time COVID-19 Rule Out 12/02/2021 12/02/2021 12/02/2021 4:28 PM CDT COVID-19 Rule Out 05/20/2023 05/20/2023 05/20/2023 6:44 PM CDT COVID-19 Rule Out 09/11/2023 09/11/2023 09/11/2023 10:29 AM SHREDDED FILLER CIGAR MAKER MACHINE COVID-19 Rule Out 03/18/2024 03/18/2024 03/18/2024 8:30 PM CDT COVID-19 Rule Out 05/27/2024 05/27/2024 05/27/2024 7:16 PM CDT Assessment Noted Time PHQ-9 Depression Total Score: 0 08/24/20 21 2:19 PM SHREDDED FILLER CIGAR MAKER MACHINE documented as of this encounter Care Teams Carpenter Streetcar Relationship Specialty [place] [address] [place] [address] PCP - General FAMILY PRACTICE 05/15/20 documented as of this encounter
--- OUTSIDE RECORDS SUMMARY | 2025-04-23 11:18 | XMS_ITS | Encounter Summary ---
Author Organization [facility] Address [facility] [place] [address] Care Team Providers Care Natural Gas Trader Name Role Phone Tutu Hill MD Primary Care Provider + HammonAry NP Primary Care Provider + None, Provider Primary Care Provider Nestor Ma MD Primary Care Provider [phone] Encounter Details Date Type Department Care Team (Late st Contact Info) Description 09/18/2002 Abstract [facility] Conversion , Generic Conversion, Social History Tobacco Use Types Packs/Day Years Used Date Smoking Tobacco: Never Assessed Comments Unknown Sex and Gender Information Value Date Recorded Sex Assigned at Female 10/30/2019 8:35 AM HANDBAG PARTS CUTTER Legal Sex Female 10:55 PM CDT Gender Identity Female 10/30/2019 8:35 AM HANDBAG PARTS CUTTER Sexual Orientation Straight 10/30/2019 8: 35 AM HANDBAG PARTS CUTTER documented as of this encounter Plan of Treatment Upcoming Encounters Date Type Department Care Team (Late st Contact Info) Description 08/26/2025 9:00 AM HANDBAG PARTS CUTTER Office Visit [facility] Medical Group Multispecialty Care - [facility] [address] [place] [address] Francisco Levi DO [address] [facility] [address] [place] [address] [phone] (work) documented as of this encounter Visit [...] Rule Out 07/06/2020 07/06/2020 07/08/2020 11:00 PM HANDBAG PARTS CUTTER COVID-19 Rule Out 07/09/2020 07/09/2020 07/12/2020 10:16 AM HANDBAG PARTS CUTTER COVID-19 Rule Out 11/14/2020 11/14/2020 11/15/2020 10:25 AM CDT COVID-19 Rule Out 01/05/2021 01/05/2021 01/05/2021 5:26 PM CDT COVID-19 Rule Out 12/02/2021 12/02/2021 12/02/2021 4:28 PM CDT COVID-19 Rule Out 05/20/2023 05/20/2023 05/20/2023 6:44 PM CDT COVID-19 Rule Out 09/11/2023 09/11/2023 09/11/2023 10:29 AM HANDBAG PARTS CUTTER COVID-19 Rule Out 03/18/2024 03/18/2024 03/18/2024 8:30 PM CDT COVID-19 Rule Out 05/27/2024 05/27/202405/2705/27/2024 7:16 PM CDT documented as of this encounter Care Teams Natural Gas Trader Relationship Specialty Start Date End Date Tutu Hill MD [address] [facility] [address] [place] [address] PCP - General FAMILY PRACTICE 08/09/18 03/19/20 Ary Rubalcava NP [address] [facility] [address] [place] [address] PCP - General Nurse Practitioner Family 03/20/2003/05 None, MD Santana PCP - General 03/25/20 05/14/20 [place] [address] [place] [address] PCP - General FAMILY PRACTICE 05/15/20 documented as of this encounter
--- OUTSIDE RECORDS SUMMARY | 2025-04-23 11:18 | XMS_ITS | Encounter Summary ---
Author Organization [facility] Address [address] [place] [address] Care Team Providers Care Pearl Maker Name Role Phone Nestor Fletcher MD Primary Care Provider [phone] Encounter Details Date Type Department Care Team (Late st Contact Info) Description 05/14/2021 [employer] Message Enc [facility] Medical Group Family & Internal Medicine [address] [address] Nestor Fletcher MD [address] [place] [address] RE: Question Social History Tobacco Use [...] Assigned at Female 10/30/2019 8:35 AM INSPECTOR AND MENDER Legal Sex Female 10:55 PM CDT Gender Identity Female 10/30/2019 8:35 AM INSPECTOR AND MENDER Sexual Orientation Straight 10/30/2019 8: 35 AM INSPECTOR AND MENDER COVID-19 Exposure Response Date Recorded In the [...] st Contact Info) Description 08/26/2025 9:00 AM INSPECTOR AND MENDER Office Visit [facility] Medical Group Multispecialty Care - [facility] [address] [place] [address] Francisco Levi DO [address] [facility] [address] [place] [address] documented as of this encounter Visit Diagnoses Not on filedocumented in this encounter Additional Health Concerns Infection Onset Date Last Indicated Resolved Time COVID-19 Rule Out 12/02/2021 12/02/2021 12/02/2021 4:28 PM CDT COVID-19 Rule Out 05/20/2023 05/20/2023 05/20/2023 6:44 PM CDT COVID-19 Rule Out 09/11/2023 09/11/2023 09/11/2023 10:29 AM INSPECTOR AND MENDER COVID-19 Rule Out 03/18/2024 03/18/2024 03/18/2024 8:30 PM CDT COVID-19 Rule Out 05/27/2024 05/27/2024 05/27/2024 7:16 PM CDT Assessment Noted Time PHQ-9 Depression Total Score: 0 03/30/20 21 11:05 AM CDT documented as of this encounter Care Teams Pearl Maker Relationship Specialty [place] [address] [place] [address] PCP - General FAMILY PRACTICE 05/15/20 documented as of this encounter
--- OUTSIDE RECORDS SUMMARY | 2025-04-23 11:18 | XMS_ITS | Encounter Summary ---
Author Organization [facility] Address [address] [place] [address] Care Team Providers Care Studio Manager Name Role Phone Nestor Fletcher MD Primary Care Provider [phone] Encounter Details Date Type Department Care Team (Late st Contact Info) Description 09/21/2023 Backlift Message Enc [facility] Medical Group Family & Internal Medicine [address] [address] Nestor Fletcher MD [address] [place] [address] Fall Social History Tobacco Use Types [...] Sex Assigned at Female 10/30/2019 8:35 AM DISTRICT RANGER Legal Sex Female 10:55 PM CDT Gender Identity Female 10/30/2019 8:35 AM DISTRICT RANGER Sexual Orientation Straight 10/30/2019 8: 35 AM DISTRICT RANGER documented as of this encounter Functional Status [...] st Contact Info) Description 08/26/2025 9:00 AM DISTRICT RANGER Office Visit [facility] Medical Group Multispecialty Care - [facility] [address] [place] [address] Francisco Levi, [address] [place] [address] documented as of this encounter Goals Goal [...] as of this encounter Care Teams Studio Manager Relationship Specialty [place] [address] [place] [address] PCP - General FAMILY PRACTICE 05/15/20 documented as of this encounter
--- OUTSIDE RECORDS SUMMARY | 2025-04-23 11:18 | XMS_ITS | Encounter Summary ---
Author Organization [facility] Address [address] [place] [address] Care Team Providers Care Joint Special Operations Name Role Phone Nestor Fletcher MD Primary Care Provider [phone] Encounter Details Date Type Department Care Team (Late st Contact Info) Description 05/07/2021 EagerPanda Message Enc [facility] Medical Group Family & Internal Medicine [address] [address] Nestor Fletcher MD [address] [place] [address] RE: Question Social History Tobacco Use [...] Sex Assigned at Female 10/30/2019 8:35 AM ELEMENTARY SCHOOL DIRECTOR Legal Sex Female 10:55 PM CDT Gender Identity Female 10/30/2019 8:35 AM ELEMENTARY SCHOOL DIRECTOR Sexual Orientation Straight 10/30/2019 8: 35 AM ELEMENTARY SCHOOL DIRECTOR COVID-19 Exposure Response Date Recorded In [...] st Contact Info) Description 08/26/2025 9:00 AM ELEMENTARY SCHOOL DIRECTOR Office Visit [facility] Medical Group Multispecialty Care - [facility] [address] [facility] [address] [place] [address] Francisco Levi, [address] [facility] [address] [place] [address] documented as of this encounter Visit Diagnoses Not on filedocumented in this encounter Additional Health Concerns Infection Onset Date Last Indicated Resolved Time COVID-19 Rule Out 12/02/2021 12/02/2021 12/02/2021 4:28 PM CDT COVID-19 Rule Out 05/20/2023 05/20/2023 05/20/2023 6:44 PM CDT COVID-19 Rule Out 09/11/2023 09/11/2023 09/11/2023 10:29 AM ELEMENTARY SCHOOL DIRECTOR COVID-19 Rule Out 03/18/2024 03/18/2024 03/18/2024 8:30 PM CDT COVID-19 Rule Out 05/27/2024 05/27/2024 05/27/2024 7:16 PM CDT Assessment Noted Time PHQ-9 Depression Total Score: 0 03/30/20 21 11:05 AM CDT documented as of this encounter Care Teams Joint Special Operations Relationship Specialty [place] [address] [place] [address] PCP - General FAMILY PRACTICE 05/15/20 documented as of this encounter
--- OUTSIDE RECORDS SUMMARY | 2025-04-23 11:18 | XMS_ITS | Encounter Summary ---
Author Organization [facility] Address [address] [place] [address] Care Team Providers Care Crossing Flagman Name Role Phone Nestor Fletcher MD Primary Care Provider [phone] Encounter Details Date Type Department Care Team (Late st Contact Info) Description 06/14/2021 [employer] Message Enc [facility] Medical Group Family & Internal Medicine [address] [address] Nestor Fletcher MD [address] [place] [address] Question Social History Tobacco Use Types [...] Assigned at Female 10/30/2019 8:35 AM SENIOR REGULATORY AFFAIRS SPECIALIST Legal Sex Female 10:55 PM CDT Gender Identity Female 10/30/2019 8:35 AM SENIOR REGULATORY AFFAIRS SPECIALIST Sexual Orientation Straight 10/30/2019 8: 35 AM SENIOR REGULATORY AFFAIRS SPECIALIST COVID-19 Exposure Response Date Recorded In [...] Contact Info) Description 08/26/2025 9:00 AM SENIOR REGULATORY AFFAIRS SPECIALIST Office Visit [facility] Medical Group Mult[facility]pecialty Care - [facility] [address] [place] [address] Mazin LevimadhaviDO [address] [place] [address] documented as of this encounter Visit Diagnoses Not on filedocumented in this encounter Additional Health Concerns Infection Onset Date Last Indicated Resolved Time COVID-19 Rule Out 12/02/2021 12/02/2021 12/02/2021 4:28 PM CDT COVID-19 Rule Out 05/20/2023 05/20/2023 05/20/2023 6:44 PM CDT COVID-19 Rule Out 09/11/2023 09/11/2023 09/11/2023 10:29 AM SENIOR REGULATORY AFFAIRS SPECIALIST COVID-19 Rule Out 03/18/2024 03/18/2024 03/18/2024 8:30 PM CDT COVID-19 Rule Out 05/27/2024 05/27/2024 05/27/2024 7:16 PM CDT Assessment Noted Time PHQ-9 Depression Total Score: 0 03/30/20 21 11:05 AM CDT documented as of this encounter Care Teams Crossing Flagman Relationship Specialty [place] [address] [place] [address] PCP - General FAMILY PRACTICE 05/15/20 documented as of this encounter
--- OUTSIDE RECORDS SUMMARY | 2025-04-23 11:18 | XMS_ITS | Encounter Summary ---
Author Organization [facility] Address [address] [place] [address] Care Team Providers Care Twisthand Name Role Phone Nestor Fletcher MD Primary Care Provider [phone] Encounter Details Date Type Department Care Team (Late st Contact Info) Description 09/29/2021 TIME PLUS Q Message Enc [facility] Medical Group Family & Internal Medicine [address] [address] Nestor Fletcher MD [address] [place] [address] Appt Oct 08 Social History Tobacco [...] Sex Assigned at Female 10/30/2019 8:35 AM SKATING RINK ICE MAKER Legal Sex Female 10:55 PM CDT Gender Identity Female 10/30/2019 8:35 AM SKATING RINK ICE MAKER Sexual Orientation Straight 10/30/2019 8: 35 AM SKATING RINK ICE MAKER COVID-19 Exposure Response Date Recorded In the last month, have you been in contact with someone who was confirmed or suspected to have Coronavirus / COVID-19? No / Unsure 10/01/2021 1:05 PM SKATING RINK ICE MAKER documented as of this encounter Functional [...] st Contact Info) Description 08/26/2025 9:00 AM SKATING RINK ICE MAKER Office Visit [facility] Medical Group Multispecialty Care - [facility] [address] [facility] [address] [place] [address] Francisco Levi DO [address] [facility] [address] [place] [address] documented as of this encounter Visit Diagnoses Not on filedocumented in this encounter Additional Health Concerns Infection Onset Date Last Indicated Resolved Time COVID-19 Rule Out 12/02/2021 12/02/2021 12/02/2021 4:28 PM CDT COVID-19 Rule Out 05/20/2023 05/20/2023 05/20/2023 6:44 PM CDT COVID-19 Rule Out 09/11/2023 09/11/2023 09/11/2023 10:29 AM SKATING RINK ICE MAKER COVID-19 Rule Out 03/18/2024 03/18/2024 03/18/2024 8:30 PM CDT COVID-19 Rule Out 05/27/2024 05/27/2024 05/27/2024 7:16 PM CDT Assessment Noted Time PHQ-9 Depression Total Score: 0 08/24/20 21 2:19 PM SKATING RINK ICE MAKER documented as of this encounter Care Teams Twisthand Relationship Specialty [place] [address] [place] [address] PCP - General FAMILY PRACTICE 05/15/20 documented as of this encounter
--- OUTSIDE RECORDS SUMMARY | 2025-04-23 11:18 | XMS_ITS | Encounter Summary ---
Author Organization [facility] Address [address] [place] [address] Care Team Providers Care Multimedia Assistant Name Role Phone Nestor Fletcher MD Primary Care Provider [phone] Encounter Details Date Type Department Care Team (Late st Contact Info) Description 04/09/[address]21 Lil Monkey Butt [address] [facility] Medical Group Family & Internal Medicine [address] [address] Nestor Fletcher MD [address] [place] [address] Question Social History Tobacco Use Types [...] Sex Assigned at Female 10/30/2019 8:35 AM JAVA MANAGER Legal Sex Female 10:55 PM CDT Gender Identity Female 10/30/2019 8:35 AM JAVA MANAGER Sexual Orientation Straight 10/30/2019 8: 35 AM JAVA MANAGER COVID-19 Exposure Response Date Recorded In [...] - 04/12/2021 9:01 AM CDT Pt messaged [facility] in regards to this and the MORPHOLOGIST responded to pt. documented in this encounter Plan of Treatment Upcoming Encounters Date Type Department Care Team (Late st Contact Info) Description 08/26/2025 9:00 AM JAVA MANAGER Office Visit [facility] Medical Group Multispecialty Care - [address] [place] [address] Francisco Levi DO [address] [place] [address] documented as of this encounter Visit Diagnoses Not on filedocumented in this encounter Additional Health Concerns Infection Onset Date Last Indicated Resolved Time COVID-19 Rule Out 12/02/2021 12/02/2021 12/02/2021 4:28 PM CDT COVID-19 Rule Out 05/20/2023 05/20/2023 05/20/2023 6:44 PM CDT COVID-19 Rule Out 09/11/2023 09/11/2023 09/11/2023 10:29 AM JAVA MANAGER COVID-19 Rule Out 03/18/2024 03/18/2024 03/18/2024 8:30 PM CDT COVID-19 Rule Out 05/27/2024 05/27/2024 05/27/2024 7:16 PM CDT Assessment Noted Time PHQ-9 Depression Total Score: 0 03/30/20 21 11:05 AM CDT documented as of this encounter Care Teams Multimedia Assistant Relationship Specialty [place] [address] [place] [address] PCP - General FAMILY PRACTICE 05/15/20 documented as of this encounter
--- OUTSIDE RECORDS SUMMARY | 2025-04-23 11:18 | XMS_ITS | Encounter Summary ---
Author Organization [facility] Address [address] [place] [address] Care Team Providers Care Coal Chemist Name Role Phone Nestor Fletcher MD Primary Care Provider [phone] Encounter Details Date Type Department Care Team (Late st Contact Info) Description 09/01/2021 Rdio Message Enc [facility] Medical Group Family & Internal Medicine [address] [address] [place] [id number] [place] [address] Flu? Social History Tobacco Use Types [...] Assigned at Female 10/30/2019 8:35 AM CLOTH PACKER Legal Sex Female 10:55 PM CDT Gender Identity Female 10/30/2019 8:35 AM CLOTH PACKER Sexual Orientation Straight 10/30/2019 8: 35 AM CLOTH PACKER COVID-19 Exposure Response Date Recorded In the last month, have you been in contact with someone who was confirmed or suspected to have Coronavirus / COVID-19? No / Unsure 08/24/2021 2:02 PM CLOTH PACKER documented as of this encounter Functional Status [...] Contact Info) Description 08/26/2025 9:00 AM CLOTH PACKER Office Visit [facility] Medical Group Multispecialty Care - [facility] [address] [facility] [address] [place] [address] Francisco Levi DO [address] [facility] [address] [place] [address] documented as of this encounter Visit Diagnoses Not on filedocumented in this encounter Additional Health Concerns Infection Onset Date Last Indicated Resolved Time COVID-19 Rule Out 12/02/2021 12/02/2021 12/02/2021 4:28 PM CDT COVID-19 Rule Out 05/20/2023 05/20/2023 05/20/2023 6:44 PM CDT COVID-19 Rule Out 09/11/2023 09/11/2023 09/11/2023 10:29 AM CLOTH PACKER COVID-19 Rule Out 03/18/2024 03/18/2024 03/18/2024 8:30 PM CDT COVID-19 Rule Out 05/27/2024 05/27/2024 05/27/2024 7:16 PM CDT Assessment Noted Time PHQ-9 Depression Total Score: 0 08/24/20 21 2:19 PM CLOTH PACKER documented as of this encounter Care Teams Coal Chemist Relationship Specialty [place] [address] [place] [address] PCP - General FAMILY PRACTICE 05/15/20 documented as of this encounter
--- OUTSIDE RECORDS SUMMARY | 2025-04-23 11:18 | XMS_ITS | Encounter Summary ---
Author Organization [facility] Address [address] [place] [address] Care Team Providers Care Tavern Operator Name Role Phone Nestor Fletcher MD Primary Care Provider [phone] Encounter Details Date Type Department Care Team (Late st Contact Info) Description 09/15/2021 [employer] Message Enc [facility] Medical Group Family & Internal Medicine [address] [address] Nestor Fletcher MD [address] [place] [address] Referral Social History Tobacco Use Types [...] Sex Assigned at Female 10/30/2019 8:35 AM SALESPERSON CORSETS Legal Sex Female 10:55 PM CDT Gender Identity Female 10/30/2019 8:35 AM SALESPERSON CORSETS Sexual Orientation Straight 10/30/2019 8: 35 AM SALESPERSON CORSETS COVID-19 Exposure Response Date Recorded In the last month, have you been in contact with someone who was confirmed or suspected to have Coronavirus / COVID-19? No / Unsure 08/24/2021 2:02 PM SALESPERSON CORSETS documented as of this encounter Functional Status [...] st Contact Info) Description 08/26/2025 9:00 AM SALESPERSON CORSETS Office Visit [facility] Medical Group Multispecialty Care - [facility] [address] [facility] [address] [place] [address] Francisco Levi DO [address] [facility] [address] [place] [address] documented as of this encounter Visit Diagnoses Not on filedocumented in this encounter Additional Health Concerns Infection Onset Date Last Indicated Resolved Time COVID-19 Rule Out 12/02/2021 12/02/2021 12/02/2021 4:28 PM CDT COVID-19 Rule Out 05/20/2023 05/20/2023 05/20/2023 6:44 PM CDT COVID-19 Rule Out 09/11/2023 09/11/2023 09/11/2023 10:29 AM SALESPERSON CORSETS COVID-19 Rule Out 03/18/2024 03/18/2024 03/18/2024 8:30 PM CDT COVID-19 Rule Out 05/27/2024 05/27/2024 05/27/2024 7:16 PM CDT Assessment Noted Time PHQ-9 Depression Total Score: 0 08/24/20 21 2:19 PM SALESPERSON CORSETS documented as of this encounter Care Teams Tavern Operator Relationship Specialty [place] [address] [place] [address] PCP - General FAMILY PRACTICE 05/15/20 documented as of this encounter
--- OUTSIDE RECORDS SUMMARY | 2025-04-23 11:18 | XMS_ITS | Encounter Summary ---
Author Organization [facility] Address [address] [place] [address] Care Team Providers Care Radio Adjuster Name Role Phone Nestor Fletcher MD Primary Care Provider [phone] Encounter Details Date Type Department Care Team (Late st Contact Info) Description 04/09/2021 [place] Message [facility] [address] Cullen Sprague MD [address] [address] RE: Question Social History Tobacco [...] Sex Assigned at Female 10/30/2019 8:35 AM TRANSLATOR/INTERPRETER Legal Sex Female 10:55 PM CDT Gender Identity Female 10/30/2019 8:35 AM TRANSLATOR/INTERPRETER Sexual Orientation Straight 10/30/2019 8: 35 AM TRANSLATOR/INTERPRETER COVID-19 Exposure Response Date Recorded In the [...] st Contact Info) Description 08/26/2025 9:00 AM TRANSLATOR/INTERPRETER Office Visit [facility] Medical Group Multispecialty Care - [facility] [address] [facility] [address] [place] [address] Francisco Levi DO [address] [facility] [facility] [address] [place] [address] documented as of this encounter Visit Diagnoses Not on filedocumented in this encounter Additional Health Concerns Infection Onset Date Last Indicated Resolved Time COVID-19 Rule Out 12/02/2021 12/02/2021 12/02/2021 4:28 PM CDT COVID-19 Rule Out 05/20/2023 05/20/2023 05/20/2023 6:44 PM CDT COVID-19 Rule Out 09/11/2023 09/11/2023 09/11/2023 10:29 AM TRANSLATOR/INTERPRETER COVID-19 Rule Out 03/18/2024 03/18/2024 03/18/2024 8:30 PM CDT COVID-19 Rule Out 05/27/2024 05/27/2024 05/27/2024 7:16 PM CDT Assessment Noted Time PHQ-9 Depression Total Score: 0 03/30/20 21 11:05 AM CDT documented as of this encounter Care Teams Radio Adjuster Relationship Specialty [place] [address] [place] [address] PCP - General FAMILY PRACTICE 05/15/20 documented as of this encounter
--- OUTSIDE RECORDS SUMMARY | 2025-04-23 11:18 | XMS_ITS | Encounter Summary ---
Author Organization [facility] Address [address] [place] [address] Care Team Providers Care Collar Setter Name Role Phone Nestor Fletcher MD Primary Care Provider +1 [phone] Encounter Details Date Type Department Care Team (Late st Contact Info) Description 08/02/2021 [employer] Message Enc [facility] Medical Group Family & Internal Medicine [address] [address] [place] Fletcher [place] [id number] [place] [address] Mid back pain Social History Tobacco [...] Assigned at Female 10/30/2019 8:35 AM FOOD COUNTER WORKER Legal Sex Female 10:55 PM CDT Gender Identity Female 10/30/2019 8:35 AM FOOD COUNTER WORKER Sexual Orientation Straight 10/30/2019 8: 35 AM FOOD COUNTER WORKER COVID-19 Exposure Response Date Recorded In the last month, have you been in contact with someone who was confirmed or suspected to have Coronavirus / COVID-19? No / Unsure 08/05/2021 9:15 AM FOOD COUNTER WORKER documented as of this encounter Functional [...] Contact Info) Description 08/26/2025 9:00 AM FOOD COUNTER WORKER Office Visit [facility] Medical Group Multispecialty Care - [facility] [address] [place] [address] Francisco Levi DO [address] [facility] [address] [place] [address] documented as of this encounter Visit Diagnoses Not on filedocumented in this encounter Additional Health Concerns Infection Onset Date Last Indicated Resolved Time COVID-19 Rule Out 12/02/2021 12/02/2021 12/02/2021 4:28 PM CDT COVID-19 Rule Out 05/20/2023 05/20/2023 05/20/2023 6:44 PM CDT COVID-19 Rule Out 09/11/2023 09/11/2023 09/11/2023 10:29 AM FOOD COUNTER WORKER COVID-19 Rule Out 03/18/2024 03/18/2024 03/18/2024 8:30 PM CDT COVID-19 Rule Out 05/27/2024 05/27/2024 05/27/2024 7:16 PM CDT Assessment Noted Time PHQ-9 Depression Total Score: 0 03/30/20 21 11:05 AM CDT documented as of this encounter Care Teams Collar Setter Relationship Specialty [place] [address] [place] [address] PCP - General FAMILY PRACTICE 05/15/20 documented as of this encounter
--- OUTSIDE RECORDS SUMMARY | 2025-04-23 11:18 | XMS_ITS | Encounter Summary ---
Author Organization [facility] Address [address] [place] [address] Care Team Providers Care Towel Distributor Name Role Phone Nestor Fletcher MD Primary Care Provider +1 [phone] Encounter Details Date Type Department Care Team (Late st Contact Info) Description 10/19/2021 [employer] Message Enc [facility] Medical Group Family & Internal Medicine [address] [address] Nestor Fletcher MD [address] [place] [address] Question regarding DRUG MONITORING, PANEL 5, [...] Sex Assigned at Female 10/30/2019 8:35 AM CONTRACT CLERK AUTOMOBILE Legal Sex Female 10:55 PM CDT Gender Identity Female 10/30/2019 8:35 AM CONTRACT CLERK AUTOMOBILE Sexual Orientation Straight 10/30/2019 8: 35 AM CONTRACT CLERK AUTOMOBILE COVID-19 Exposure Response Date Recorded In the last 10 days, have marielos u been in contact with someone who was confirmed or suspected to have Coronavirus/COVID-19? No / Unsure 10/15/2021 8:52 AM CONTRACT CLERK AUTOMOBILE documented as of this encounter Functional Status [...] st Contact Info) Description 08/26/2025 9:00 AM CONTRACT CLERK AUTOMOBILE Office Visit [facility] Medical Group Mult[facility]pecialty Care - [facility] [address] [facility] [place] [address] Francisco Levi DO 3 [facility] [address] [place] [address] documented as of this encounter Visit Diagnoses Not on filedocumented in this encounter Additional Health Concerns Infection Onset Date Last Indicated Resolved Time COVID-19 Rule Out 12/02/2021 12/02/2021 12/02/2021 4:28 PM CDT COVID-19 Rule Out 05/20/2023 05/20/2023 05/20/2023 6:44 PM CDT COVID-19 Rule Out 09/11/2023 09/11/2023 09/11/2023 10:29 AM CONTRACT CLERK AUTOMOBILE COVID-19 Rule Out 03/18/2024 03/18/2024 03/18/2024 8:30 PM CDT COVID-19 Rule Out 05/27/2024 05/27/2024 05/27/2024 7:16 PM CDT Assessment Noted Time PHQ-9 Depression Total Score: 0 08/24/20 21 2:19 PM CONTRACT CLERK AUTOMOBILE documented as of this encounter Care Teams Towel Distributor Relationship Specialty [place] [address] [place] [address] PCP - General FAMILY PRACTICE 05/15/20 documented as of this encounter
--- OUTSIDE RECORDS SUMMARY | 2025-04-23 11:18 | XMS_ITS | Encounter Summary ---
Author Organization [facility] Address [address] [place] [address] Care Team Providers Care Transportation Economics Teacher Name Role Phone Nestor Fletcher MD Primary Care Provider +1 [phone] Encounter Details Date Type Department Care Team (Late st Contact Info) Description 07/05/2021 [employer] Message Enc [facility] Medical Group Family & Internal Medicine [address] [address] Nestor Fletcher MD [address] [place] [address] RE: Question Social History Tobacco Use [...] Sex Assigned at Female 10/30/2019 8:35 AM WAREHOUSE HAND Legal Sex Female 10:55 PM CDT Gender Identity Female 10/30/2019 8:35 AM WAREHOUSE HAND Sexual Orientation Straight 10/30/2019 8: 35 AM WAREHOUSE HAND COVID-19 Exposure Response Date Recorded In the [...] st Contact Info) Description 08/26/2025 9:00 AM WAREHOUSE HAND Office Visit [facility] Medical Group Multispecialty Care - [facility] [address] [facility] [facility] [address] [address] [place] [address] Francisco Levi DO [address] [facility] [address] [place] [address] documented as of this encounter Visit Diagnoses Not on filedocumented in this encounter Additional Health Concerns Infection Onset Date Last Indicated Resolved Time COVID-19 Rule Out 12/02/2021 12/02/2021 12/02/2021 4:28 PM CDT COVID-19 Rule Out 05/20/2023 05/20/2023 05/20/2023 6:44 PM CDT COVID-19 Rule Out 09/11/2023 09/11/2023 09/11/2023 10:29 AM WAREHOUSE HAND COVID-19 Rule Out 03/18/2024 03/18/2024 03/18/2024 8:30 PM CDT COVID-19 Rule Out 05/27/2024 05/27/2024 05/27/2024 7:16 PM CDT Assessment Noted Time PHQ-9 Depression Total Score: 0 03/30/20 21 11:05 AM CDT documented as of this encounter Care Teams Transportation Economics Teacher Relationship Specialty [place] [address] [place] [address] PCP - General FAMILY PRACTICE 05/15/20 documented as of this encounter
--- OUTSIDE RECORDS SUMMARY | 2025-04-23 11:18 | XMS_ITS | Encounter Summary ---
Author Organization [facility] Address [address] [place] [address] Care Team Providers Care Office Helper Clerical Name Role Phone Nestor Fletcher MD Primary Care Provider +1 [phone] Encounter Details Date Type Department Care Team (Late st Contact Info) Description 04/23/2021 [employer] Message Enc [facility] Medical Group Family & Internal Medicine [address] [address] Nestor Fletcher MD [address] [place] [address] RE: Question Social History Tobacco Use [...] Sex Assigned at Female 10/30/2019 8:35 AM SAP PROJECT MANAGER Legal Sex Female 10:55 PM CDT Gender Identity Female 10/30/2019 8:35 AM SAP PROJECT MANAGER Sexual Orientation Straight 10/30/2019 8: 35 AM SAP PROJECT MANAGER COVID-19 Exposure Response Date Recorded In [...] st Contact Info) Description 08/26/2025 9:00 AM SAP PROJECT MANAGER Office Visit [facility] Medical Group Multispecialty Care - [facility] [address] [place] [address] Francisco Levi, [address] [facility] [address] [place] [address] documented as of this encounter Visit Diagnoses Not on filedocumented in this encounter Additional Health Concerns Infection Onset Date Last Indicated Resolved Time COVID-19 Rule Out 12/02/2021 12/02/2021 12/02/2021 4:28 PM CDT COVID-19 Rule Out 05/20/2023 05/20/2023 05/20/2023 6:44 PM CDT COVID-19 Rule Out 09/11/2023 09/11/2023 09/11/2023 10:29 AM SAP PROJECT MANAGER COVID-19 Rule Out 03/18/2024 03/18/2024 03/18/2024 8:30 PM CDT COVID-19 Rule Out 05/27/2024 05/27/2024 05/27/2024 7:16 PM CDT Assessment Noted Time PHQ-9 Depression Total Score: 0 03/30/20 21 11:05 AM CDT documented as of this encounter Care Teams Office Helper Clerical Relationship Specialty [place] [address] [place] [address] PCP - General FAMILY PRACTICE 05/15/20 documented as of this encounter
--- OUTSIDE RECORDS SUMMARY | 2025-04-23 11:19 | XMS_ITS | Encounter Summary ---
Author Organization [facility] Address [address] [place] [address] Care Team Providers Care Hematology Technologist Name Role Phone Nestor Fletcher MD Primary Care Provider +1 [phone] Encounter Details Date Type Department Care Team (Late st Contact Info) Description 01/12/2024 [employer] Message Enc [facility] Medical Group Family & Internal Medicine [address] [address] Nestor Fletcher MD [address] [place] [address] Tests Social History Tobacco Use Types [...] Sex Assigned at Female 10/30/2019 8:35 AM SOCIAL SECURITY SPECIALIST Legal Sex Female 10:55 PM CDT Gender Identity Female 10/30/2019 8:35 AM SOCIAL SECURITY SPECIALIST Sexual Orientation Straight 10/30/2019 8: 35 AM SOCIAL SECURITY SPECIALIST documented as of this encounter Functional [...] st Contact Info) Description 08/26/2025 9:00 AM SOCIAL SECURITY SPECIALIST Office Visit [facility] Medical Group Multispecialty Care - [facility] [address] [facility] [facility] [address] [place] [address] Francisco Levi, [address] [facility] [address] [place] [address] documented as of this encounter Goals Goal [...] documented as of this encounter Care Teams Hematology Technologist Relationship Specialty [place] [address] [place] [address] PCP - General FAMILY PRACTICE 05/15/20 documented as of this encounter
--- OUTSIDE RECORDS SUMMARY | 2025-04-23 11:19 | XMS_ITS | Encounter Summary ---
Author Organization [facility] Address [address] [place] [address] Care Team Providers Care Cook Cashier Food Prep Name Role Phone Nestor Fletcher MD Primary Care Provider +1- [phone] Encounter Details Date Type Department Care Team (Late st Contact Info) Description 01/18/2024 [employer] Message Enc [facility] Medical Group Family & Internal Medicine [address] [address] Nestor Fletcher MD [address] [place] [address] Lumbar xray Social History Tobacco Use [...] Sex Assigned at Female 10/30/2019 8:35 AM FOREST PRODUCTS GATHERER Legal Sex Female 10:55 PM CDT Gender Identity Female 10/30/2019 8:35 AM FOREST PRODUCTS GATHERER Sexual Orientation Straight 10/30/2019 8: 35 AM FOREST PRODUCTS GATHERER documented as of this encounter Functional Status [...] st Contact Info) Description 08/26/2025 9:00 AM FOREST PRODUCTS GATHERER Office Visit [facility] Medical Group Multispecialty Care - [facility] [address] [place] [address] Francisco Levi DO [address] [facility] [address] [place] [address] documented as of this encounter Goals Goal [...] as of this encounter Care Teams Cook Cashier Food Prep Relationship Specialty [place] [address] [place] [address] PCP - General FAMILY PRACTICE 05/15/20 documented as of this encounter
--- OUTSIDE RECORDS SUMMARY | 2025-04-23 11:19 | XMS_ITS | Encounter Summary ---
Author Organization [facility] Address [address] [place] [address] Care Team Providers Care Armed Security Professional Name Role Phone Nestor Fletcher MD Primary Care Provider +1 [phone] Encounter Details Date Type Department Care Team (Late st Contact Info) Description 02/03/2024 [employer] Message Enc [facility] Medical Group Family & Internal Medicine [address] [address] Nestor Fletcher MD [address] [place] [address] Antibiotics Social History Tobacco Use Types [...] Sex Assigned at Female 10/30/2019 8:35 AM STOVE FITTER Legal Sex Female 10:55 PM CDT Gender Identity Female 10/30/2019 8:35 AM STOVE FITTER Sexual Orientation Straight 10/30/2019 8: 35 AM STOVE FITTER documented as of this encounter Functional Status [...] st Contact Info) Description 08/26/2025 9:00 AM STOVE FITTER Office Visit [facility] Medical Group Multispecialty Care - [facility] [address] [place] [address] Francisco Lvei, [address] [facility] [address] [place] [address] documented as of this encounter Goals Goal [...] documented as of this encounter Care Teams Armed Security Professional Relationship Specialty [place] [address] [place] [address] PCP - General FAMILY PRACTICE 05/15/20 documented as of this encounter
--- OUTSIDE RECORDS SUMMARY | 2025-04-23 11:19 | XMS_ITS | Encounter Summary ---
Author Organization [facility] Address [address] [place] [address] Care Team Providers Care Editor City Name Role Phone Nestor Fletcher MD Primary Care Provider +1 [phone] Encounter Details Date Type Department Care Team (Late st Contact Info) Description 01/06/2024 [employer] Message Enc [facility] Medical Group Family & Internal Medicine [facility] [address] [place] [address] [place] Fletcher [place] [id number] [place] [address] Imaging. Social History Tobacco Use Types [...] Sex Assigned at Female 10/30/2019 8:35 AM CHECK PILOT Legal Sex Female 10:55 PM CDT Gender Identity Female 10/30/2019 8:35 AM CHECK PILOT Sexual Orientation Straight 10/30/2019 8: 35 AM CHECK PILOT documented as of this encounter Functional [...] st Contact Info) Description 08/26/2025 9:00 AM CHECK PILOT Office Visit [facility] Medical Group Multispecialty Care - [facility] [address] [facility] [address] [place] [address] Francisco Levi, [address] [facility] [address] [place] [address] documented as of this encounter Goals Goal [...] as of this encounter Care Teams Editor City Relationship Specialty [place] [address] [place] [address] PCP - General FAMILY PRACTICE 05/15/20 documented as of this encounter
--- OUTSIDE RECORDS SUMMARY | 2025-04-23 11:19 | XMS_ITS | Encounter Summary ---
Author Organization [facility] Address [address] [place] [address] Care Team Providers Care Wire Walker Name Role Phone Nestor Fletcher MD Primary Care Provider +1 [phone] Encounter Details Date Type Department Care Team (Late st Contact Info) Description 12/26/2023 [employer]This Message Enc [facility] Medical Group Family & Internal Medicine [address] [address] Nestor Fletcher MD [address] [place] [address] Nausea Social History Tobacco Use Types [...] Sex Assigned at Female 10/30/2019 8:35 AM SEWING MACHINE REPAIRER Legal Sex Female 10:55 PM CDT Gender Identity Female 10/30/2019 8:35 AM SEWING MACHINE REPAIRER Sexual Orientation Straight 10/30/2019 8: 35 AM SEWING MACHINE REPAIRER documented as of this encounter Functional [...] st Contact Info) Description 08/26/2025 9:00 AM SEWING MACHINE REPAIRER Office [facility] - [facility] [address] [facility] [address] [place] [address] Francisco Levi, [address] [facility] [address] [place] [address] documented as of this encounter Goals Goal [...] as of this encounter Care Teams Wire Walker Relationship Specialty [place] [address] [place] [address] PCP - General FAMILY PRACTICE 05/15/20 documented as of this encounter
--- OUTSIDE RECORDS SUMMARY | 2025-04-23 11:19 | XMS_ITS | Encounter Summary ---
Author Organization [facility] Address [address] [place] [address] Care Team Providers Care Drafter Civil Engineering Name Role Phone Nestor Fletcher MD Primary Care Provider +1- [phone] Encounter Details Date Type Department Care Team (Late st Contact Info) Description 03/18/2024 [email or web address] Message Enc [facility] Medical Group Family & Internal Medicine [address] [address] Nestor Fletcher MD [address] [place] [address] Chest pain Social History Tobacco Use [...] Sex Assigned at Female 10/30/2019 8:35 AM ADVERTISING EDITOR Legal Sex Female 10:55 PM CDT Gender Identity Female 10/30/2019 8:35 AM ADVERTISING EDITOR Sexual Orientation Straight 10/30/2019 8: 35 AM ADVERTISING EDITOR documented as of this encounter Functional Status [...] PM CINTHYAT Snow Geller RN Active * [place] Suicide Severity Rating Scale (Screener/Recent Self-Report) Question [...] st Contact Info) Description 08/26/2025 9:00 AM ADVERTISING EDITOR Office Visit [facility] Medical Group Multispecialty Care - [facility] [address] [facility] [address] [place] [address] Francisco Levi DO [address] [facility] [address] [place] [address] documented as of this encounter Goals Goal [...] documented as of this encounter Care Teams Drafter Civil Engineering Relationship Specialty [place] [address] [place] [address] PCP - General FAMILY PRACTICE 05/15/20 documented as of this encounter
--- OUTSIDE RECORDS SUMMARY | 2025-04-23 11:19 | XMS_ITS | Encounter Summary ---
Author Organization [facility] Address [address] [place] [address] Care Team Providers Care Carrot Buncher Name Role Phone Nestor Fletcher MD Primary Care Provider +1 [phone] Encounter Details Date Type Department Care Team (Late st Contact Info) Description 12/18/2023 [employer] Message Enc [facility] Medical Group Family & Internal Medicine [address] [address] Nestor Fletcher MD [address] [place] [address] Appt cancellation Social History Tobacco Use [...] Sex Assigned at Female 10/30/2019 8:35 AM JUMBO OPERATOR Legal Sex Female 10:55 PM CDT Gender Identity Female 10/30/2019 8:35 AM JUMBO OPERATOR Sexual Orientation Straight 10/30/2019 8: 35 AM JUMBO OPERATOR documented as of this encounter Functional [...] st Contact Info) Description 08/26/2025 9:00 AM JUMBO OPERATOR Office Visit [facility] Medical Group Multispecialty Care - [facility] [address] [facility] [address] [place] [address] Francisco Levi, [address] [facility] [address] [place] [address] documented as of this encounter Goals Goal [...] documented as of this encounter Care Teams Carrot Buncher Relationship Specialty [place] [address] [place] [address] PCP - General FAMILY PRACTICE 05/15/20 documented as of this encounter
--- OUTSIDE RECORDS SUMMARY | 2025-04-23 11:19 | XMS_ITS | Encounter Summary ---
Author Organization [facility] Address [address] [place] [address] Care Team Providers Care Mri Supervisor Name Role Phone Nestor Fletcher MD Primary Care Provider +1- [phone] Encounter Details Date Type Department Care Team (Late st Contact Info) Description 05/26/2024 [employer] Message Enc [facility] Medical Group Family & Internal Medicine [address] [address] Nestor Fletcher MD [address] [place] [address] Vaccination Social History Tobacco Use Types [...] Assigned at Female 10/30/2019 8:35 AM LEAD CUSTOMER SERVICE REPRESENTATIVE Legal Sex Female 10:55 PM CDT Gender Identity Female 10/30/2019 8:35 AM LEAD CUSTOMER SERVICE REPRESENTATIVE Sexual Orientation Straight 10/30/2019 8: 35 AM LEAD CUSTOMER SERVICE REPRESENTATIVE documented as of this [...] Status No Risk Indicated 05/27/2024 6:19 PM Jenn Fuchs RN Active * [place] Suicide Severity Rating Scale (Screener/Recent Self-Report) Question Answer Date of Assessment Author Status 1. Wish to be (Past 1 Month) No 05/27/2024 6:19 PM Jenn Fuchs RN Activ e 2. Non-Specific Active Suicidal Thoughts (Past 1 Month) No 05/27/2024 6:19 PM Jenn Fuchs RN Activ e 6. Suicidal Behavior (Lifetime) No 05/27/2024 6:19 PM Jenn Fuchs RN Activ e documented as of this [...] Contact Info) Description 08/26/2025 9:00 AM LEAD CUSTOMER SERVICE REPRESENTATIVE Office Visit [facility] Medical Group Mult[facility]pecialty Care - [facility] [address] [address] [place] [address] Francisco Levi, [address] [facility] [address] [place] [address] documented as of this encounter Goals Goal [...] documented as of this encounter Care Teams Mri Supervisor Relationship Specialty [place] [address] [place] [address] PCP - General FAMILY PRACTICE 05/15/20 documented as of this encounter
--- OUTSIDE RECORDS SUMMARY | 2025-04-23 11:19 | XMS_ITS | Encounter Summary ---
Author Organization [facility] Address [address] [place] [address] Care Team Providers Care Research Engineer Marine Equipment Name Role Phone Nestor Fletcher MD Primary Care Provider +1 [phone] Encounter Details Date Type Department Care Team (Late st Contact Info) Description 11/23/2023 Machine Talker Message Enc [facility] Medical Group Family & Internal Medicine [address] [address] Nestor Fletcher MD [address] [place] [address] Sudden pain Social History Tobacco Use [...] Assigned at Female 10/30/2019 8:35 AM GOLF COURSE LABORER Legal Sex Female 10:55 PM CDT Gender Identity Female 10/30/2019 8:35 AM GOLF COURSE LABORER Sexual Orientation Straight 10/30/2019 8: 35 AM GOLF COURSE LABORER documented as of this encounter Functional Status [...] st Contact Info) Description 08/26/2025 9:00 AM GOLF COURSE LABORER Office Visit [facility] Medical Group Multispecialty Care - [facility] [address] [facility] [address] [place] [address] Francisco Levi, [address] [facility] [address] [place] [address] documented as of this encounter Goals Goal [...] as of this encounter Care Teams Research Engineer Marine Equipment Relationship Specialty [place] [address] [place] [address] PCP - General FAMILY PRACTICE 05/15/20 documented as of this encounter
--- OUTSIDE RECORDS SUMMARY | 2025-04-23 11:19 | XMS_ITS | Encounter Summary ---
Author Organization [facility] Address [address] [place] [address] Care Team Providers Care Ticket Taker Name Role Phone Nestor Fletcher MD Primary Care Provider +1- [phone] Encounter Details Date Type Department Care Team (Late st Contact Info) Description 04/24/2024 Disqus Message Enc [facility] Family & Internal Medicine [address] [address] Nestor Fletcher MD [address] [place] [address] Stomach Social History Tobacco Use Types [...] Assigned at Female 10/30/2019 8:35 AM RETAIL SALESMAN Legal Sex Female 10:55 PM CDT Gender Identity Female 10/30/2019 8:35 AM RETAIL SALESMAN Sexual Orientation Straight 10/30/2019 8: 35 AM RETAIL SALESMAN documented as of this encounter Functional Status [...] st Contact Info) Description 08/26/2025 9:00 AM RETAIL SALESMAN Office Visit [facility] Mult[facility]pecialty Care - [facility] [address] [place] [address] Francisco Levi, [address] [facility] [address] [place] [address] documented as of this encounter Goals Goal [...] documented as of this encounter Care Teams Ticket Taker Relationship Specialty [place] [address] [place] [address] PCP - General FAMILY PRACTICE 05/15/20 documented as of this encounter
--- OUTSIDE RECORDS SUMMARY | 2025-04-23 11:19 | XMS_ITS | Encounter Summary ---
Author Organization [facility] Address [address] [place] [address] Care Team Providers Care Tax Accounting Manager Name Role Phone Nestor Fletcher MD Primary Care Provider [phone] Encounter Details Date Type Department Care Team (Late st Contact Info) Description 11/19/2023 Arkivum Message Enc [facility] [place] [phone] [id number] Eleanor Elise MD Three [facility] [address] [place] [address] Spinal cord stimulator psych eval [...] Sex Assigned at Female 10/30/2019 8:35 AM HOG SCALDER Legal Sex Female 10:55 PM CDT Gender Identity Female 10/30/2019 8:35 AM HOG SCALDER Sexual Orientation Straight 10/30/2019 8: 35 AM HOG SCALDER documented as of this encounter Functional Status [...] st Contact Info) Description 08/26/2025 9:00 AM HOG SCALDER Office Visit [facility] Multispecialty Care - [facility] [address] [place] [address] Francisco Levi DO [address] [place] [address] documented as of this encounter Goals Goal [...] as of this encounter Care Teams Tax Accounting Manager Relationship Specialty [place] [address] [place] [address] PCP - General FAMILY PRACTICE 05/15/20 documented as of this encounter
--- OUTSIDE RECORDS SUMMARY | 2025-04-23 11:19 | XMS_ITS | Encounter Summary ---
Author Organization [facility] Address [address] [place] [address] Care Team Providers Care Product Management Consultant Name Role Phone Nestor Fletcher MD Primary Care Provider [phone]- [phone] Encounter Details Date Type Department Care Team (Late st Contact Info) Description 02/19/2024 MobileDay Message Enc [facility] Family & Internal Medicine [address] [address] Nestor Fletcher MD [address] [place] [address] Prozac Social History Tobacco Use Types [...] Sex Assigned at Female 10/30/2019 8:35 AM BIT BENDER Legal Sex Female 10:55 PM CDT Gender Identity Female 10/30/2019 8:35 AM BIT BENDER Sexual Orientation Straight 10/30/2019 8: 35 AM BIT BENDER documented as of this encounter Functional Status [...] st Contact Info) Description 08/26/2025 9:00 AM BIT BENDER Office Visit [facility] Multispecialty Care - [facility] [address] [facility] [facility] [facility] [address] [place] [address] Francisco Levi DO [address] [facility] [address] [place] [address] documented as of this encounter Goals Goal [...] documented as of this encounter Care Teams Product Management Consultant Relationship Specialty [place] [address] [place] [address] PCP - General FAMILY PRACTICE 05/15/20 documented as of this encounter
--- OUTSIDE RECORDS SUMMARY | 2025-04-23 11:19 | XMS_ITS | Encounter Summary ---
Author Organization [facility] Address [address] [place] [address] Care Team Providers Care Freezer Assistant Name Role Phone Nestor Fletcher MD Primary Care Provider +1- [phone] Encounter Details Date Type Department Care Team (Late st Contact Info) Description 04/16/2024 Oomba Message Enc [facility] Family & Internal Medicine [address] [address] Nestor Fletcher MD [address] [place] [address] Upper endoscopy Social History Tobacco Use [...] Sex Assigned at Female 10/30/2019 8:35 AM BACK END ARCHITECT Legal Sex Female 10:55 PM CDT Gender Identity Female 10/30/2019 8:35 AM BACK END ARCHITECT Sexual Orientation Straight 10/30/2019 8: 35 AM BACK END ARCHITECT documented as of this encounter Functional Status [...] st Contact Info) Description 08/26/2025 9:00 AM BACK END ARCHITECT Office Visit [facility] Multispecialty Care - [address] [place] [address] Francisco Levi, DO [address] [place] [address] documented as of this encounter Goals Goal [...] documented as of this encounter Care Teams Freezer Assistant Relationship Specialty [place] [address] [place] [address] PCP - General FAMILY PRACTICE 05/15/20 documented as of this encounter
--- OUTSIDE RECORDS SUMMARY | 2025-04-23 11:19 | XMS_ITS | Encounter Summary ---
Author Organization [facility] Address [address] [place] [address] Care Team Providers Care Pharmacy Clinical Specialist Name Role Phone Nestor Fletcher MD Primary Care Provider +1- [phone] Encounter Details Date Type Department Care Team (Late st Contact Info) Description 06/19/2024 Simple Lifeforms Message Enc [facility] Family & Internal Medicine [facility] [phone] [place] [address] [place] Fletcher [place] [phone] [place] [address] Pain. Again Social History Tobacco Use [...] Sex Assigned at Female 10/30/2019 8:35 AM RATTLE LEAK AND SQUEAK REPAIRER Legal Sex Female 10:55 PM CDT Gender Identity Female 10/30/2019 8:35 AM RATTLE LEAK AND SQUEAK REPAIRER Sexual Orientation Straight 10/30/2019 8: 35 AM RATTLE LEAK AND SQUEAK REPAIRER documented as of this encounter Functional [...] CINTHYAT Juan C Levi RN Active * [place] Suicide Severity Rating Scale (Screener/Recent Self-Report) Question Answer Date of Assessment Author Status 1. Wish to be (Past 1 Month) No 06/22/2024 12:58 PM Kelly Childs RN Acti ve 2. Non-Specific Active Suicidal Thoughts (Past 1 Month) No 06/22/2024 12:58 PM CINTHYAT Kelly Levi RN Acti ve 6. Suicidal Behavior (Lifetime) No 06/22/2024 12:58 PM Kelly Childs RN Acti ve documented as of this [...] st Contact Info) Description 08/26/2025 9:00 AM RATTLE LEAK AND SQUEAK REPAIRER Office Visit [facility]ialty Care - [facility] [address] [place] [address] Dagoberto LevishaheenDO [address] [facility] [address] [place] [address] documented as of this encounter Goals Goal [...] documented as of this encounter Care Teams Pharmacy Clinical Specialist Relationship Specialty [place] [address] [place] [address] PCP - General FAMILY PRACTICE 05/15/20 documented as of this encounter
--- OUTSIDE RECORDS SUMMARY | 2025-04-23 11:19 | XMS_ITS | Encounter Summary ---
Author Organization [facility] Address [address] [place] [address] Care Team Providers Care Claims Counsel Name Role Phone Nestor Fletcher MD Primary Care Provider +1 [phone] Encounter Details Date Type Department Care Team (Late st Contact Info) Description 06/15/2024 XOS Digital Message Enc [facility] Family & Internal Medicine [address] [address] Nestor Fletcher MD [address] [place] [address] Help Social History Tobacco Use Types [...] Sex Assigned at Female 10/30/2019 8:35 AM CYBER LEGAL ADVISOR Legal Sex Female 10:55 PM CDT Gender Identity Female 10/30/2019 8:35 AM CYBER LEGAL ADVISOR Sexual Orientation Straight 10/30/2019 8: 35 AM CYBER LEGAL ADVISOR documented as of this encounter Functional [...] st Contact Info) Description 08/26/2025 9:00 AM CYBER LEGAL ADVISOR Office Visit [facility] Multispecialty Care - [facility] [address] [facility] [address] [facility] [address] [place] [address] Francisco Levi, [address] [facility] [address] [place] [address] documented as of this encounter Goals Goal [...] documented as of this encounter Care Teams Claims Counsel Relationship Specialty [place] [address] [place] [address] PCP - General FAMILY PRACTICE 05/15/20 documented as of this encounter
--- OUTSIDE RECORDS SUMMARY | 2025-04-23 11:19 | XMS_ITS | Encounter Summary ---
Author Organization [facility] Address [address] [place] [address] Care Team Providers Care Panama Hat Blocker Name Role Phone Nestor Fletcher MD Primary Care Provider +1 [phone] Encounter Details Date Type Department Care Team (Late st Contact Info) Description 12/26/2023 Panoramic Powert Message Enc [facility] Multispecialty Care - [facility] [address] [facility] [place] [phone] Eusebio Ron MD 3 [place] [address] Update Social History Tobacco Use Types Packs/Day [...] Sex Assigned at Female 10/30/2019 8:35 AM RESEARCH TEST ENGINE EVALUATOR Legal Sex Female 10:55 PM CDT Gender Identity Female 10/30/2019 8:35 AM RESEARCH TEST ENGINE EVALUATOR Sexual Orientation Straight 10/30/2019 8: 35 AM RESEARCH TEST ENGINE EVALUATOR documented as of this encounter Functional Status [...] st Contact Info) Description 08/26/2025 9:00 AM RESEARCH TEST ENGINE EVALUATOR Office Visit [facility] Multispecialty Care - [facility] [address] [facility] [facility] [address] [place] [address] Francisco Levi DO [address] [facility] [address] [place] [address] documented as of this encounter Goals Goal [...] documented as of this encounter Care Teams Panama Hat Blocker Relationship Specialty [place] [address] [place] [address] PCP - General FAMILY PRACTICE 05/15/20 documented as of this encounter
--- OUTSIDE RECORDS SUMMARY | 2025-04-23 11:19 | XMS_ITS | Encounter Summary ---
Author Organization [facility] Address [address] [place] [address] Care Team Providers Care Preanalytics Team Lead Name Role Phone Nestor Fletcher MD Primary Care Provider +[phone] Encounter Details Date Type Department Care Team (Late st Contact Info) Description 11/13/2023 Get In Message Enc [facility] Family & Internal Medicine [address] [address] Nestor Fletcher MD [address] [place] [address] Sleep Social History Tobacco Use Types [...] Sex Assigned at Female 10/30/2019 8:35 AM MIS MANAGER Legal Sex Female 10:55 PM CDT Gender Identity Female 10/30/2019 8:35 AM MIS MANAGER Sexual Orientation Straight 10/30/2019 8: 35 AM MIS MANAGER documented as of this encounter Functional [...] st Contact Info) Description 08/26/2025 9:00 AM MIS MANAGER Office Visit [facility] Multispecialty Care - [facility] [address] [facility] [address] [place] [address] Francisco Levi, [address] [facility] [address] [place] [address] documented as of this encounter Goals Goal [...] documented as of this encounter Care Teams Preanalytics Team Lead Relationship Specialty [place] [address] [place] [address] PCP - General FAMILY PRACTICE 05/15/20 documented as of this encounter
--- OUTSIDE RECORDS SUMMARY | 2025-04-23 11:19 | XMS_ITS | Encounter Summary ---
Author Organization [facility] Address [address] [place] [address] Care Team Providers Care Jet Aircraft Servicer Name Role Phone Nestor Fletcher MD Primary Care Provider +1 [phone] Encounter Details Date Type Department Care Team (Late st Contact Info) Description 04/11/2024 Global Locate Message Enc [facility] Group Family & Internal Medicine [address] [address] Nestor Fletcher MD [address] [place] [address] Flare Social History Tobacco Use Types [...] Sex Assigned at Female 10/30/2019 8:35 AM UMBRELLA REPAIRER Legal Sex Female 10:55 PM CDT Gender Identity Female 10/30/2019 8:35 AM UMBRELLA REPAIRER Sexual Orientation Straight 10/30/2019 8: 35 AM UMBRELLA REPAIRER documented as of this encounter Functional [...] st Contact Info) Description 08/26/2025 9:00 AM UMBRELLA REPAIRER Office Visit [facility] Group [facility]pecialty Care - [facility] [address] [facility] [address] [place] [address] Francisco Levi, [address] [facility] [address] [place] [address] documented as of this encounter Goals Goal [...] documented as of this encounter Care Teams Jet Aircraft Servicer Relationship Specialty [place] [address] [place] [address] PCP - General FAMILY PRACTICE 05/15/20 documented as of this encounter
--- OUTSIDE RECORDS SUMMARY | 2025-04-23 11:19 | XMS_ITS | Encounter Summary ---
Author Organization [facility] Address [address] [place] [address] Care Team Providers Care Vice President Of Instruction Name Role Phone Nestor Fletcher MD Primary Care Provider +1- [phone] Encounter Details Date Type Department Care Team (Late st Contact Info) Description 06/24/2024 Advantagene Message Enc [facility] Family & Internal Medicine [address] [address] Nestor Flethcer MD [address] [place] [address] Appt for 8:20 Social History Tobacco [...] Sex Assigned at Female 10/30/2019 8:35 AM STRAIGHTENING MACHINE OPERATOR Legal Sex Female 10:55 PM CDT Gender Identity Female 10/30/2019 8:35 AM STRAIGHTENING MACHINE OPERATOR Sexual Orientation Straight 10/30/2019 8: 35 AM STRAIGHTENING MACHINE OPERATOR documented as of this encounter [...] st Contact Info) Description 08/26/2025 9:00 AM STRAIGHTENING MACHINE OPERATOR Office Visit [facility]ty Care - [facility] [address] [place] [address] Francisco Levi, [address] [facility] [address] [place] [address] documented as of this encounter Goals Goal [...] this encounter Care Teams Vice President Of Instruction Relationship Specialty [place] [address] [place] [address] PCP - General FAMILY PRACTICE 05/15/20 documented as of this encounter
--- OUTSIDE RECORDS SUMMARY | 2025-04-23 11:19 | XMS_ITS | Encounter Summary ---
Author Organization [facility] Address [address] [place] [address] Care Team Providers Care Flight Technician Name Role Phone Nestor Fletcher MD Primary Care Provider +1 [phone] Encounter Details Date Type Department Care Team (Late st Contact Info) Description 07/03/2024 AFINOS Message Enc [facility] Family & Internal Medicine [address] [address] Nestor Fletcher MD [address] [place] [address] Antibiotics Social History Tobacco Use Types [...] Assigned at Female 10/30/2019 8:35 AM BODY LINER Legal Sex Female 10:55 PM CDT Gender Identity Female 10/30/2019 8:35 AM BODY LINER Sexual Orientation Straight 10/30/2019 8: 35 AM BODY LINER documented as of this encounter Functional Status [...] Contact Info) Description 08/26/2025 9:00 AM BODY LINER Office Visit [facility] Multispecialty Care - [facility] [address] [facility] [address] [place] [address] Francisco Levi, [address] [facility] [address] [place] [address] documented as of this encounter Goals Goal Patient Goal Type Associated Problems Recent Progress Patient-Stated? Author Health - patient able to perform ADLs independently Lifestyle No Vega hendirckson, Kareem Camacho RN documented as of this encounter Visit Diagnoses Not on filedocumented in this encounter Additional Health Concerns Assessment Noted Time PHQ-9 Depression Total Score: 0 02/26/20 22 9:40 AM CDT documented as of this encounter Care Teams Flight Technician Relationship Specialty [place] [address] [place] [address] PCP - General FAMILY PRACTICE 05/15/20 documented as of this encounter
--- OUTSIDE RECORDS SUMMARY | 2025-04-23 11:19 | XMS_ITS | Encounter Summary ---
Author Organization [facility] Address [address] [place] [address] Care Team Providers Care Lime Kiln And Recausticizing Operator Name Role Phone Nestor Fletcher MD Primary Care Provider +1 [phone] Encounter Details Date Type Department Care Team (Late st Contact Info) Description 04/05/2024 AirSage Message Enc [facility] Medical Group Family & Internal Medicine [address] [address] Nestor Fletcher MD [address] [place] [address] [place] Social History Tobacco Use Types Packs/Day [...] Sex Assigned at Female 10/30/2019 8:35 AM ULTRASONOGRAPHER Legal Sex Female 10:55 PM CDT Gender Identity Female 10/30/2019 8:35 AM ULTRASONOGRAPHER Sexual Orientation Straight 10/30/2019 8: 35 AM ULTRASONOGRAPHER documented as of this encounter Functional Status [...] st Contact Info) Description 08/26/2025 9:00 AM ULTRASONOGRAPHER Office Visit [facility] Medical Group Multispecialty Care - [facility] [address] [facility] [address] [place] [address] Francisco Levi, [address] [facility] [address] [place] [address] documented as of this encounter Goals Goal [...] documented as of this encounter Care Teams Lime Kiln And Recausticizing Operator Relationship Specialty [place] [address] [place] [address] PCP - General FAMILY PRACTICE 05/15/20 documented as of this encounter
--- OUTSIDE RECORDS SUMMARY | 2025-04-23 11:19 | XMS_ITS | Encounter Summary ---
Author Organization [facility] Address [address] [place] [address] Care Team Providers Care Armature Bander Name Role Phone Nestor Fletcher MD Primary Care Provider +1- [phone] Encounter Details Date Type Department Care Team (Late st Contact Info) Description 02/18/2024 Comparisim Message Enc [facility] Medical Group Family & Internal Medicine [address] [address] Nestor Fletcher MD [address] [place] [address] Prozac Social History Tobacco Use Types [...] Sex Assigned at Female 10/30/2019 8:35 AM DEPLOYMENT MANAGER Legal Sex Female 10:55 PM CDT Gender Identity Female 10/30/2019 8:35 AM DEPLOYMENT MANAGER Sexual Orientation Straight 10/30/2019 8: 35 AM DEPLOYMENT MANAGER documented as of this encounter Functional [...] 8:03 AM CDT Printed for Dr zamora advise. documented in this encounter Plan of Treatment Upcoming Encounters Date Type Department Care Team (Late st Contact Info) Description 08/26/2025 9:00 AM DEPLOYMENT MANAGER Office Visit [facility] Medical Group Multispecialty Care - [facility] [address] [facility] [address] [place] [address] Francisco Levi, [address] [facility] [address] [place] [address] documented as of this encounter Goals Goal [...] documented as of this encounter Care Teams Armature Bander Relationship Specialty [place] [address] [place] [address] PCP - General FAMILY PRACTICE 05/15/20 documented as of this encounter
--- OUTSIDE RECORDS SUMMARY | 2025-04-23 11:19 | XMS_ITS | Encounter Summary ---
Author Organization [facility] Address [facility] [place] [address] Care Team Providers Care Coat Room Attendant Name Role Phone Tutu Hill MD Primary Care Provider + ColbyAry NP Primary Care Provider + None, Provider Primary Care Provider Nestor Ma MD Primary Care Provider +[phone]- [phone] Encounter Details Date Type Department Care Team (Late st Contact Info) Description 04/03/2013 Abstract [facility] Conversion Md, Generic Conversion, Social History Tobacco Use Types Packs/Day Years Used Date Smoking Tobacco: Never Assessed Comments Unknown Sex and Gender Information Value Date Recorded Sex Assigned at Female 10/30/2019 8:35 AM HOSPICE COMMUNITY LIAISON Legal Sex Female 10:55 PM CDT Gender Identity Female 10/30/2019 8:35 AM HOSPICE COMMUNITY LIAISON Sexual Orientation Straight 10/30/2019 8: 35 AM HOSPICE COMMUNITY LIAISON documented as of this encounter Plan of Treatment Upcoming Encounters Date Type Department Care Team (Late st Contact Info) Description 08/26/2025 9:00 AM HOSPICE COMMUNITY LIAISON Office Visit [facility] Medical Group Multispecialty Care - [facility] [address] [facility] [address] [place] [address] Francisco Levi DO [address] [facility] [address] [place] [address] [phone] (work) documented as of this encounter Visit [...] Rule Out 07/06/2020 07/06/2020 07/08/2020 11:00 PM HOSPICE COMMUNITY LIAISON COVID-19 Rule Out 07/09/2020 07/09/2020 07/12/2020 10:16 AM HOSPICE COMMUNITY LIAISON COVID-19 Rule Out 11/14/2020 11/14/2020 11/15/2020 10:25 AM CDT COVID-19 Rule Out 01/05/2021 01/05/2021 01/05/2021 5:26 PM CDT COVID-19 Rule Out 12/02/2021 12/02/2021 12/02/2021 4:28 PM CDT COVID-19 Rule Out 05/20/2023 05/20/2023 05/20/2023 6:44 PM CDT COVID-19 Rule Out 09/11/2023 09/11/2023 09/11/2023 10:29 AM HOSPICE COMMUNITY LIAISON COVID-19 Rule Out 03/18/2024 03/18/2024 03/18/2024 8:30 PM CDT COVID-19 Rule Out 05/27/2024 05/27/202405/2705/27/2024 7:16 PM CDT documented as of this encounter Care Teams Coat Room Attendant Relationship Specialty Start Date End Date Tutu Hill MD [address] [facility] [address] [place] [address] PCP - General FAMILY PRACTICE 08/09/18 03/19/20 Ary Rubalcava NP [address] [facility] [address] [place] [address] PCP - General Nurse Practitioner Family 03/20/2003/05 None, MD Santana PCP - General 03/25/20 05/14/20 [place] [address] [place] [address] PCP - General FAMILY PRACTICE 05/15/20 documented as of this encounter
--- OUTSIDE RECORDS SUMMARY | 2025-04-23 11:19 | XMS_ITS | Encounter Summary ---
Author Organization [facility] Address [address] [place] [address] Care Team Providers Care Theater Teacher Name Role Phone Nestor Fletcher MD Primary Care Provider [phone] Encounter Details Date Type Department Care Team (Late st Contact Info) Description 08/05/2024 [employer] Message Enc [facility] Family & Internal Medicine [address] [address] Nestor Fletcher MD [address] [place] [id number] [place] Social History Tobacco Use Types [...] Sex Assigned at Female 10/30/2019 8:35 AM HISTORY DEPARTMENT CHAIR Legal Sex Female 10:55 PM CDT Gender Identity Female 10/30/2019 8:35 AM HISTORY DEPARTMENT CHAIR Sexual Orientation Straight 10/30/2019 8: 35 AM HISTORY DEPARTMENT CHAIR documented as of this encounter Functional Status [...] st Contact Info) Description 08/26/2025 9:00 AM HISTORY DEPARTMENT CHAIR Office Visit [facility] Medical Group Multispecialty Care - [facility] [address] [place] [address] Francisco Levi, [address] [place] [address] documented as of this encounter Goals Goal [...] documented as of this encounter Care Teams Theater Teacher Relationship Specialty [place] [address] [place] [address] PCP - General FAMILY PRACTICE 05/15/20 documented as of this encounter
--- OUTSIDE RECORDS SUMMARY | 2025-04-23 11:19 | XMS_ITS | Encounter Summary ---
Author Organization [facility] Address [address] [place] [address] Care Team Providers Care Lockstitch Zipper Setter Name Role Phone Nestor Fletcher MD Primary Care Provider [phone] Encounter Details Date Type Department Care Team (Late st Contact Info) Description 02/12/2024 [employer] Message Enc [facility] Medical Group Family & Internal Medicine [address] [address] Nestor Fletcher MD [address] [place] [address] [place] Social History Tobacco Use Types Packs/Day Years [...] Sex Assigned at Female 10/30/2019 8:35 AM MOTOR OPERATOR Legal Sex Female 10:55 PM CDT Gender Identity Female 10/30/2019 8:35 AM MOTOR OPERATOR Sexual Orientation Straight 10/30/2019 8: 35 AM MOTOR OPERATOR documented as of this encounter Functional [...] st Contact Info) Description 08/26/2025 9:00 AM MOTOR OPERATOR Office Visit [facility] Medical Group Multispecialty Care - [facility] [address] [place] [id number] Francisco Levi, [address] [place] [address] documented as of this encounter Goals Goal [...] documented as of this encounter Care Teams Lockstitch Zipper Setter Relationship Specialty [place] [address] [place] [address] PCP - General FAMILY PRACTICE 05/15/20 documented as of this encounter
== END 2025-04-23 10:42 | disposition home or self-care (01) ==
PROVIDERS: PCP Family Medicine; Visit Provider Nurse Practitioner Adult Health
DX: M51.369 Other intervertebral disc degeneration, lumbar region without mention of lumbar back pain or lower extremity pain (principal); M47.816 Spondylosis without myelopathy or radiculopathy, lumbar region; M47.817 Spondylosis without myelopathy or radiculopathy, lumbosacral region; Z96.698 Presence of other orthopedic joint implants
CPT/HCPCS: 72110